=== PATIENT | female | born 1935 | race Caucasian/White ===

== ENCOUNTER → 2016-11-26 | Outpatient (CLI) | payer OTHER ==
[~2016-11-26] MED LIST: ACET-1311 PO; ACYC-251 PO; ACYC1CAP8 PO; AMIO0.1T PO; AMIO200T4 PO; CEFU250T15 PO; CHOL1000 PO; CHOL100027 PO; CINA0.42 PO; CLOP1TAB15 PO; CPR500 PO; CRD200 PO; Citracal PO; DIPH-416 PO; DXM/4 PO; ESTCR VAGRING; FERR1TAB23 PO; FERR325T18 PO; FLUO0.0543; FRRS300 PO; GLUC500C4 PO; GLUC500T35 PO; IMD/2 PO; LEVO75TA PO; LORA-741 PO; MAGN400T6 PO; METHPOW7; METO-217 PO; MRLP17X PO; MULTCHW4 PO; NITR1OIN; ONDA4TAB46 PO; PANT40TA PO; POTA20TA16 PO; PRAV20TA PO; PRED-301 PO; PRT40 PO; Prednisone PO; SUCR1TAB PO; TRIM100T20 PO; VERA240C2 PO; XLD/500 PO; ZOLE1INJ IV; ZVR400 PO
--- NOTE | 2016-11-26 13:52 | DIAGNOSTIC IMAGING REPORT ---
ABDOMEN AND PELVIS CT WITH IV AND ORAL CONTRAST CT DOSE: 666.49 mGycm HISTORY: Mild change K52.9 Chronic asscptmsL54.5 TECHNIQUE: Multiaxial CT images of the abdomen and pelvis were performed following the use of intravenous and oral contrast. COMPARISON STUDY: 11/03/2015. 05/21/2014. FINDINGS: Platelike atelectasis lung bases. Lung bases otherwise are clear. Mild fatty replacement of the liver. The gallbladder is negative for distention. Kidneys enhance uniformly. Several microcysts are present. No evidence for hydronephrosis. Inferior vena caval filter present at the juncture of the inferior vena cava and right iliac vein. Bowel pattern overall is nonobstructive. Several fluid-filled loops of small bowel within the right central pelvic region. Mild increase in fecal load within the colon. There are no obstructive characteristics. Operative changes within the pelvis consistent with a prior bladder suspension type procedure. Sigmoid colon demonstrates a component of chronic sigmoid diverticulosis. No evidence for diverticulitis. Normal appendix. Bladder is midline with no contained calcifications. Moderate degenerative change of the osseous structures. IMPRESSION: 1. Mild fatty infiltration of liver. 2. Small bowel appearance suggesting a mild enteritis. 3. Mild chronic sigmoid diverticulosis. 4. No evidence for acute diverticulitis. 5. Mild increase in fecal load within the ascending and transverse colon consistent with a component of fecal stasis. Electronically signed by: Miguel Luciano M.D. 11/26/2016 1:50 PM
== END | disposition home or self-care (01) ==
LOC: C.CTS 11:00
PROVIDERS: ATTEND Internal Medicine
DX: K62.5 Hemorrhage of anus and rectum (principal); K52.9 Noninfective gastroenteritis and colitis, unspecified

== ENCOUNTER → 2016-12-04 | Outpatient (CLI) | payer OTHER ==
[~2016-12-04] MED LIST changes: -ACET-1311 PO; -CEFU250T15 PO; -FERR325T18 PO; -METHPOW7; -MRLP17X PO; -ONDA4TAB46 PO
[2016-12-04 17:29] LABS: BLOOD UREA NITROGEN 19 mg/dl (7-18); BUN/CREATININE RATIO 24.5 (10-20); CALCIUM 9.2 mg/dl (8.5-10.1); CARBON DIOXIDE 24 mmol/L (21-32); CHLORIDE 104 mmol/L (98-107); CREATININE 0.76 mg/dl (0.60-1.20); GLUCOSE 100 mg/dl (70-99); POTASSIUM 3.8 mmol/L (3.5-5.1); SODIUM 139 mmol/L (136-145)
[2016-12-04 17:44] LABS: ALB/GLOB RATIO 1.5 (0.9-2); ALKALINE PHOSPHATASE 38 U/L (45-117); ALT/SGPT 16 U/L (12-78); AST/SGOT 11 U/L (15-37); IMMUNOGLOBULN A 35.8 mg/dL (70-400); IMMUNOGLOBULN M 29.6 mg/dL (40-230)
[2016-12-04 21:15] LABS: BASO % 0.2 %; BASO ABS # 0.02 K/uL (0-0.2); COMPLETE YES; EOS % 0.7 %; HEMATOCRIT 37.6 % (37-47); IG% 0.7 %; LYMPH % 12.1 %; LYMPH ABS # 1.24 K/uL (1.2-3.4); MEAN CORPUSCULAR HEMOGLOBIN 30.8 pg (25-34); MEAN CORPUSCULAR HGB CONC 33.8 g/dl (32-36); MEAN PLATELET VOLUME 11.6 fL (7.4-10.4); NEUT % 82.3 %; PLATELET COUNT 295 K/uL (130-400); RED BLOOD COUNT 4.13 M/uL (4.2-5.4); WHITE BLOOD COUNT 10.21 K/uL (4.8-10.8)
[2016-12-07 11:19] LABS: FREE KAPPA 13.8 MG/L (3.3-19.4); FREE KAPPA/LAMBDA RATIO 1.52 (0.26-1.65); FREE LAMBDA 9.1 MG/L (5.7-26.3)
== END | disposition home or self-care (01) ==
LOC: C.LABBFT 12:53
PROVIDERS: ATTEND Internal Medicine Hematology & Oncology
DX: C90.00 Multiple myeloma not having achieved remission (principal)

== ENCOUNTER 2016-12-08 07:24 | Inpatient (IN) | payer OTHER ==
[2016-12-08] VITALS (7 sets, daily range): BP systolic 106–128; BP diastolic 51–73; PULSE 83–122; TEMP 36.7–37.4; O2SAT 97–100; Ht 162.6 cm; Wt 60.7 kg
[~2016-12-08] VITALS: Ht 162.6 cm; Wt 60.7 kg
[~2016-12-08 07:24] MED LIST changes: -ACYC1CAP8 PO; -AMIO0.1T PO; -AMIO200T4 PO; -CHOL1000 PO; -CPR500 PO; -CRD200 PO; -FERR1TAB23 PO; -FRRS300 PO; -GLUC500C4 PO; -GLUC500T35 PO; -NITR1OIN; -PRED-301 PO; -PRT40 PO; -SUCR1TAB PO; -XLD/500 PO; -ZOLE1INJ IV; -ZVR400 PO
[2016-12-08] MEDS ORDERED: NITR1OIN (07:47)
[2016-12-08] MEDS ORDERED: PANT40TA PO (07:47)
[2016-12-08] MEDS ORDERED: PRED-301 PO (07:47)
--- NOTE | 2016-12-08 07:49 | DIAGNOSTIC IMAGING REPORT ---
CHEST ONE VIEW PORTABLE CLINICAL HISTORY: Atypical chest pain vomiting COMPARISON STUDY: 12/04/2014 FINDINGS: There are postsurgical changes of a midline sternotomy. There is no failure. There is no focal pulmonary consolidation. There are no pleural effusions. There is minor basilar interstitial thickening. This is felt to be chronic.[ IMPRESSION: No active disease in the chest. Electronically signed by: Nehemiah Mccormack M.D. 12/08/2016 7:47 AM Dictated Date/Time: 12/08/2016 7:46 AM
[2016-12-08] MEDS ORDERED: SODIUM CHLORIDE 0.9% 1000ML 1,000 ML IV STA (07:51)
[2016-12-08] MEDS ORDERED: OCTREOTIDE IV BOLUS & DRIP IV STA (07:51)
[2016-12-08] MEDS ORDERED: ONDANSETRON INJ 2 MG/ML 2 ML VIAL IV STA (07:53)
[2016-12-08] MEDS ORDERED: OCTREOTIDE ACETATE INJ 100 MCG in SYRINGE 9 ML IV SCH (08:00)
[2016-12-08] MEDS ORDERED: PANTOprazole INJ 80 MG in DEXTROSE 5% 100ML IV SCH (08:00)
[2016-12-08] MEDS ORDERED: OCTREOTIDE ACETATE INJ 500 MCG in NSS 100ML IV SCH ×2 (08:00→18:30)
--- NOTE | 2016-12-08 08:13 | EMERGENCY ROOM VISIT NOTE ---
History Report prepared by Ambrosio: Joe Navarro Under the Supervision of: Dr. Doyle Lopez M.D. First contact with patient: 07:29 Chief Complaint: GI ASSESSMENT Stated Complaint: VOMITING Nursing Triage Summary: pt presents to room A09 via ALS from home. Pt has hx of gi bleeds and was to see a gi dr from [facility] today at 1000. pt reports she develped lower abd pain last night and nausea and this morning threw up dark red blood. pt is on plavix. History of Present Illness The patient is a 81 year old female who presents to the Emergency Room via ALS with complaints of blood in vomit occurring this morning. Around 6 pm last night , she had a sudden onset of weakness. This morning, she had a vomiting episode which contained a large amount of dark blood. She also complains of nausea and abdominal pain. She has been having diarrhea since July. She has a history of bleeding ulcer occurring 2 years ago. She is on Plavix. The patient denies chest pain, shortness of breath, or any other complaints. Source of History: patient Onset: this morning Position: other (global) Quality: other (blood in vomit) Associated Symptoms: + abdominal pain, + nausea, + weakness, No SOB, No chest pain Review of Systems See HPI for pertinent positives & negatives. A total of 10 systems reviewed and were otherwise negative. Past Medical & Surgical Medical Problems: (1) Anemia (2) Coronary artery disease (3) Hematemesis, weakness (4) History of hypertension (5) Hyperparathyroidism (6) Hypertension (7) Hypothyroid (8) Multiple myeloma Surgical Problems: (1) S/P CABG (coronary artery bypass graft) (2) S/P hysterectomy Family History Diabetes Hypertension Social History Smoking Status: Never Smoker Alcohol Use: none Drug Use: none Marital Status: Housing Status: lives with significant other Occupation Status: retired Current/Historical Medications Scheduled Cholecalciferol (Vitamin D 1000 Unit), 1,000 INTER.UNIT PO DAILY Cinacalcet (Sensipar), 30 MG PO DAILY Clopidogrel (Plavix), 75 MG PO DAILY Diphenoxylate/Atropine (Lomotil), 1 TAB PO prn Levothyroxine Sodium (Synthroid), 75 MCG PO DAILY Metoprolol Succinate (Toprol Xl), 25 MG PO DAILY Pantoprazole (Protonix), 40 MG PO DAILY Potassium Ext Rel (Klor-Con), 20 MEQ PO DAILY Pravastatin (Pravachol ), 20 MG PO MWF Prednisone (Prednisone), 5 MG PO DAILY Verapamil Hcl (Verapamil Hcl Er), 240 MG PO HS Miscellaneous Medications Nitroglycerin (Intra-Anal) (Rectiv) Allergies Coded Allergies: Aspartame (Verified Allergy, Mild, 12/08/16) Shellfish (Verified Allergy, Mild, 12/08/16) Ciprofloxacin (Verified Allergy, Unknown, ., 12/08/16) Iodinated Diagnostic Agents (Verified Allergy, Unknown, Unknown, 12/08/16) Nitrofurantoin (Verified Allergy, Unknown, Unknown, 12/08/16) Quinolones (Verified Allergy, Unknown, CIPRO, 12/08/16) Sulfa Antibiotics (Verified Allergy, Unknown, Unknown, 12/08/16) Physical Exam Vital Signs Date Time Temp Pulse Resp B/P Pulse Ox O2 Delivery O2 Flow Rate FiO2 12/08/16 11:50 69 14 122/56 100 Mechanical Ventilator 40 12/08/16 11:40 68 14 121/50 100 Mechanical Ventilator 40 12/08/16 11:30 67 14 131/51 100 Mechanical Ventilator 40 12/08/16 11:20 77 14 121/53 100 Mechanical Ventilator 40 12/08/16 11:10 68 14 128/53 100 Mechanical Ventilator 40 12/08/16 11:00 68 14 112/51 100 Mechanical Ventilator 40 12/08/16 10:50 40 12/08/16 10:50 73 14 119/53 100 Mechanical Ventilator 40 12/08/16 10:40 36.4 67 14 173/80 100 Mechanical Ventilator 40 12/08/16 09:25 105 201/118 100 Mechanical Ventilator 12/08/16 09:19 110 217/104 100 Mechanical Ventilator 12/08/16 09:16 40 12/08/16 09:03 100 12/08/16 08:53 95 12/08/16 08:51 94 16 113/69 94 Room Air 12/08/16 08:36 55 12/08/16 08:24 70 18 112/54 100 Room Air 12/08/16 07:41 77 20 100/53 97 Room Air 12/08/16 07:29 37.0 78 20 114/57 97 Room Air 12/08/16 07:29 100 Room Air Physical Exam GENERAL: Patient is vomiting large amounts of blood. HEAD: Normocephalic atraumatic EYES: Ocular movements intact pupils equal and react to light OROPHARYNX mucous membranes are moist no exudates present no erythema or edema present NECK: Supple no nuchal rigidity CHEST: Good equal expansion LUNGS: Clear and equal to auscultation CARDIAC: Normal S1 and S2 ABDOMEN: Soft nontender no guarding BACK: No CVA tenderness EXTREMITIES: No pain upon palpation normal muscle strength in all groups no clubbing cyanosis or edema NEURO: Patient is following commands is answering questions appropriately. Alert and oriented x3 Cranial Nerves 2-12 grossly intact Medical Decision & Procedures ER Provider Diagnostic Interpretation: X-ray results as stated below per my interpretation and radiologist interpretation. CT results as stated below per my review and radiologist interpretation: CT SCAN OF THE ABDOMEN AND PELVIS WITHOUT CONTRAST CLINICAL HISTORY: Hematemesis. Vomiting. COMPARISON STUDY: 11/26/2016 TECHNIQUE: CT scan of the abdomen and pelvis was performed from the lung bases to the proximal femurs. Images are reviewed in the axial, sagittal, and coronal planes. IV contrast was not administered for this examination. CT DOSE: 687.72 mGycm FINDINGS: Lower chest: There are postsurgical changes of midline sternotomy. No pleural effusions are visualized. There is no focal pulmonary consolidation. Liver: The unenhanced liver is normal in size, contour, and attenuation. There is no intrahepatic biliary ductal dilatation. Gallbladder: Unremarkable. Spleen: Normal in size and attenuation. Pancreas: Unremarkable. Adrenal glands: Unremarkable. Kidneys: There is no hydronephrosis. There is a 2 mm left renal calcification. Bowel: There is mild fecal retention. There are no transition zones indicate bowel obstruction. There is colonic diverticulosis. No acute peridiverticular inflammatory changes are visualized. There is mild bowel wall thickening involving the descending colon. This may indicate a mild enteritis. There is a hiatal hernia. There is nonspecific soft tissue fullness at the esophagogastric junction. Peritoneum: There is no intraperitoneal free air or abdominal ascites. Vasculature: There is no evidence of abdominal aortic aneurysm. An IVC filter is visualized. Adenopathy: None. Pelvic viscera: There is a pessary. The patient appears be status post a prior hysterectomy. Skeletal structures: There is an area of sclerosis in the intertrochanteric right femur, likely representing a bone island. The bones are osteopenic. There is an old T12 wedge compression deformity. IMPRESSION: 1. No evidence of bowel obstruction. No evidence of free air 2. Diverticulosis. No evidence of acute diverticulitis 3. Mild bowel wall thickening involving the descending colon. This may indicate a mild enteritis. 4. Hiatal hernia with soft tissue prominence of the esophagogastric junction 5. Fecal retention Electronically signed by: Nehemiah Mccormack M.D. 12/08/2016 8:27 AM Dictated Date/Time: 12/08/2016 8:18 AM CHEST ONE VIEW PORTABLE CLINICAL HISTORY: Atypical chest pain vomiting COMPARISON STUDY: 12/04/2014 FINDINGS: There are postsurgical changes of a midline sternotomy. There is no failure. There is no focal pulmonary consolidation. There are no pleural effusions. There is minor basilar interstitial thickening. This is felt to be chronic.[ IMPRESSION: No active disease in the chest. Electronically signed by: Nehemiah Mccormack M.D. 12/08/2016 7:47 AM Dictated Date/Time: 12/08/2016 7:46 AM Laboratory Results 12/08/16 08:50 Red Blood Count 2.70, Mean Corpuscular Volume 93.7, Mean Corpuscular Hemoglobin 31.1, Mean Corpuscular Hemoglobin Concent 33.2, Mean Platelet Volume 10.8, Neutrophils (%) (Auto) 80.6, Lymphocytes (%) (Auto) 10.4, Monocytes (%) (Auto) 7.5, Eosinophils (%) (Auto) 0.3, Basophils (%) (Auto) 0.2, Neutrophils # (Auto) 14.04, Lymphocytes # (Auto) 1.81, Monocytes # (Auto) 1.30, Eosinophils # (Auto) 0.05, Basophils # (Auto) 0.04 12/08/16 08:00 Test 12/08/16 08:00 12/08/16 08:50 12/08/16 08:54 Prothrombin Time 11.4 SECONDS (9.0-12.0) Prothromb Time International Ratio 1.1 (0.9-1.1) Activated Partial Thromboplast Time 20.8 SECONDS (21.0-31.0) Partial Thromboplastin Ratio 0.8 Est Creatinine Clear Calc Drug Dose 50.4 ml/min Estimated GFR () 92.9 Estimated GFR (Non- 80.1 BUN/Creatinine Ratio 93.3 (10-20) Calcium Level 8.4 mg/dl (8.5-10.1) Total Bilirubin 0.2 mg/dl (0.2-1) Direct Bilirubin < 0.1 mg/dl (0-0.2) Aspartate Amino Transf (AST/SGOT) 9 U/L (15-37) Alanine Aminotransferase (ALT/SGPT) 13 U/L (12-78) Alkaline Phosphatase 29 U/L (45-117) Total Creatine Kinase 18 U/L (26-192) Creatine Kinase MB 1.0 ng/ml (0.5-3.6) Creatine Kinase MB Ratio 5.6 (0-3.0) Troponin I < 0.015 ng/ml (0-0.045) Total Protein 5.1 gm/dl (6.4-8.2) Albumin 2.9 gm/dl (3.4-5.0) Lipase 90 U/L (73-393) White Blood Count 17.41 K/uL (4.8-10.8) Red Blood Count 2.70 M/uL (4.2-5.4) Hemoglobin 8.4 g/dL (12.0-16.0) Hematocrit 25.3 % (37-47) Mean Corpuscular Volume 93.7 fL (80-100) Mean Corpuscular Hemoglobin 31.1 pg (25-34) Mean Corpuscular Hemoglobin Concent 33.2 g/dl (32-36) Platelet Count 239 K/uL (130-400) Mean Platelet Volume 10.8 fL (7.4-10.4) Neutrophils (%) (Auto) 80.6 % Lymphocytes (%) (Auto) 10.4 % Monocytes (%) (Auto) 7.5 % Eosinophils (%) (Auto) 0.3 % Basophils (%) (Auto) 0.2 % Neutrophils # (Auto) 14.04 K/uL (1.4-6.5) Lymphocytes # (Auto) 1.81 K/uL (1.2-3.4) Monocytes # (Auto) 1.30 K/uL (0.11-0.59) Eosinophils # (Auto) 0.05 K/uL (0-0.5) Basophils # (Auto) 0.04 K/uL (0-0.2) RDW Standard Deviation 49.6 fL (36.4-46.3) RDW Coefficient of Variation 14.4 % (11.5-14.5) Immature Granulocyte % (Auto) 1.0 % Immature Granulocyte # (Auto) 0.17 K/uL (0.00-0.02) Hypochromasia PRESENT Bedside Hemoglobin 8.2 g/dl (12.0-16.0) Bedside Hematocrit 24 % (37-47) Bedside Sodium 141 mEq/L (135-144) Bedside Potassium 4.0 mEq/L (3.3-5.0) Bedside Chloride 107 mEq/L (101-112) Bedside Total CO2 18 mEq/l (24-31) Anion Gap 20.0 mmol/L (16-25) Bedside Blood Urea Nitrogen 67 mg/dl (7-18) Bedside Creatinine 0.6 mg/dl (0.6-1.3) Bedside Glucose (other) 128 mg/dl (70-99) Bedside Ionized Calcium (Patrizia) 1.15 mmol/l (1.12-1.32) Labs reviewed by ED physician. Medications Administered Medications (Trade) Dose Ordered Sig/Timo Route Start Time Stop Time Status Last Admin Dose Admin Octreotide Acetate (Sandostatin Iv Bolus & Drip) 1 ea NOW STAT IV 12/08/16 07:51 12/08/16 07:52 DC 12/08/16 08:27 1 EA Pantoprazole Sodium 1 ea 1 ea NOW STAT IV 12/08/16 07:51 12/08/16 07:52 DC 12/08/16 08:27 1 EA Sodium Chloride (Nss 1000ml) 1,000 ml @ 999 mls/hr Q1H1M STAT IV 12/08/16 07:51 12/08/16 08:51 DC 12/08/16 08:02 999 MLS/HR Ondansetron HCl 4 mg 4 mg NOW STAT IV 12/08/16 07:53 12/08/16 07:54 DC 12/08/16 08:02 4 MG Octreotide Acetate 100 mcg/ Syringe 10 ml @ 3 mls/min TODAY@0800 IV 12/08/16 08:00 12/08/16 10:00 DC 12/08/16 08:27 3 MLS/MIN Octreotide Acetate 500 mcg/ Sodium Chloride 105 ml @ 10 mls/hr [id number] IV 12/08/16 08:00 12/08/16 18:29 12/08/16 08:27 10 MLS/HR Pantoprazole Sodium 40 mg/ Dextrose 100 ml @ 20 mls/hr Q5H IV 12/08/16 08:30 12/08/16 13:29 DC 12/08/16 08:27 20 MLS/HR Pantoprazole Sodium/Dextrose (Protonix Inj/D5 100ml) 120 ml @ 480 mls/hr TODAY@0800 IV 12/08/16 08:00 12/08/16 10:00 DC 12/08/16 08:27 480 MLS/HR Ceftriaxone Sodium (Rocephin Inj) 1 gm NOW STAT IV 12/08/16 08:34 12/08/16 08:35 DC 12/08/16 08:54 1 GM Metoclopramide HCl (Reglan Inj) 10 mg NOW STAT IV 12/08/16 08:38 12/08/16 08:39 DC 12/08/16 08:50 10 MG Miscellaneous (Rapid Sequence Induction Bag) 1 ea STK-MED ONCE N/A 12/08/16 08:41 12/08/16 08:43 DC 12/08/16 08:41 1 EA Etomidate (Amidate Inj) 20 mg 0848 STAT IV 12/08/16 08:48 12/08/16 08:50 DC 12/08/16 08:48 20 MG Succinylcholine Chloride (Quelicin Inj) 150 mg NOW STAT IV 12/08/16 08:48 12/08/16 08:50 DC 12/08/16 08:48 150 MG Vecuronium Intervale (Vecuronium Intervale Inj) 10 mg NOW STAT IV 12/08/16 08:48 12/08/16 08:50 DC 12/08/16 08:48 10 MG Propofol (Diprivan IV 100ML VIAL) 1 dose UD PRN IV 12/08/16 09:00 12/08/16 13:37 DC 12/08/16 09:22 1 DOSE Epinephrine HCl 1 mg 1 mg STK-MED ONCE .ROUTE 12/08/16 10:36 12/08/16 10:38 DC 12/08/16 10:07 0.4 MG Sodium Chloride (Nss 1000ml) 1,000 ml @ 45 mls/hr [id number] IV 12/08/16 11:33 01/07/17 11:32 12/08/16 15:03 45 MLS/HR Morphine Sulfate (MoRPHine SULFATE INJ) 2 mg Q2H PRN IV 12/08/16 11:45 12/22/16 11:44 12/08/16 15:03 2 MG Procedure Endotracheal Intubation Indication Hematemesis. The patient was on 100% oxygen via NRB prior to the procedure. Suction, airway equipment, RSI drugs, respiratory equipment, and appropriate personnel were prepared prior to the initiation of the procedure. A time out was taken. Induction was performed with Etomidate and Succinylcholine. After observing the clinical benefit of the medications, the airway was easily visualized utilizing a GlideScope. A 7.5 size ETT tube was placed atraumatically to 22 cm using standard technique. The cuff inflated without signs of malfunction. There were bilateral breath sounds, positive colormetric change, no gastric sounds, a good capnography waveform, and post procedure pulse oximetry was 100%. There were no complications. ECG Indication: other (Blood in vomit) Rate (beats per minute): 79 Rhythm: normal sinus Findings: no acute ischemic change, no ectopy ED Course 07: Past medical records reviewed. The patient was evaluated in room A09B. A complete history and physical examination was performed. 0751: Sodium Chloride 1000 ml @ 999 mls/hr IV, Pantoprazole Sodium 1 ea IV, Octreotide Acetate 1 ea IV 0753: Zofran Inj 4 mg IV 0800: Pantoprazole Sodium 80 mg/Dextrose 120 ml @ 480 mls/hr IV, Octreotide Acetate 500 mcg/Sodium Chloride 105 ml @ 10 mls/hr IV, Octreotide Acetate 100 mcg/Syringe 10 ml @ 3 mls/min IV 0819: I discussed the patient's case with OSCAR Simpson gastroenterology with [facility]. 0830: Pantoprazole Sodium 40 mg/Dextrose 100 ml @ 20 mls/hr IV 0834: Rocephin Inj 1 gm IV 0835: I reevaluated the patient who is resting comfortably. 0838: Reglan Inj 10 mg IV 0839: I discussed the patient's case again with OSCAR Simpson gastroenterology with [facility]. 0841: I discussed results and treatment plan with the patient. She verbalizes agreement and understanding. The patient will be evaluated for further management. I performed endotracheal intubation. Refer to procedure note for details. 0848: Vecuronium Intervale Inj 10 mg IV, Quelicin Inj 150 mg IV, Amidate Inj 20 mg IV 0900: Propofol 1 dose IV 0910: I discussed the patient's case with her family. 927: I discussed the patient's case with Dr. Maier high school principal with [facility]. 932: I discussed the patient's case with Dr. Palma anesthesiologist with [facility]. 40: I discussed the patient's case with Dr. Irwin, from [facility]. Medical Decision Differential diagnosis: Etiologies such as diverticulosis, AVM, coagulopathy, colitis, inflammatory bowel disease, malignancy, Lakesha-Saez tear, esophagitis, peptic ulcer disease , variceal bleed, gastritis, epistaxis, fissure, hemorrhoids, as well as others were entertained. This is an 81-year-old female who presents emergency department with an acute episode of a large amount of hematemesis at home today. Upon arrival to the emergency department the patient reports she has been feeling weak for the past day. Her hemoglobin is noted to have dropped from 12 to 8. The patient is also on Plavix. Due to the fact that the patient was on Plavix she was typed and screened and given 1 unit of platelets. The patient again had a large amount of hematemesis in the emergency department and at this point it was felt that the patient should be intubated to protect her airway. I discussed this with both patient as well as her family. All were in agreement with this treatment . The patient was discussed with gastroenterology as well as critical-care and the hospitalist service. Consults Time Called: 806 Consulting Physician: OSCAR Simpson gastroenterology with [facility] Returned Call: [phone] I discussed the patient's case with OSCAR Simpson gastroenterology with [facility]. Additional Consults: Time Called: [phone] Consulted Physician: Dr. Maier high school principal with [facility] Returned Call: [phone] Additional Comments: I discussed the patient's case with Dr. Maier high school principal with [facility]. Time Called: 929 Consulted Physician: Dr. Palma, anesthesiologist with [facility] Returned Call: [phone] Additional Comments: I discussed the patient's case with Dr. Palma, anesthesiologist with [facility]. Impression Primary Impression: Upper GI bleed Critical Care I have personally spent greater than 90 minutes of critical care time in the direct management of this patient. This includes bedside care, interpretation of diagnostic studies, and testing, discussion with consultants, patient, and family members, and other required patient management activities. This 90 minutes is in excess of all separately billable procedures. Scribe Attestation The scribe's documentation has been prepared under my direction and personally reviewed by me in its entirety. I confirm that the note above accurately reflects all work, treatment, procedures, and medical decision making performed by me. Departure Information Dispostion Being Evaluated By Hospitalist Referrals Hussain Woody M.D. (PCP) Patient Instructions My [facility]
[2016-12-08 08:14] LABS: HEMATOCRIT 26.6 % (37-47); MEAN CELL VOLUME 92.4 fL (80-100); MEAN CORPUSCULAR HEMOGLOBIN 31.3 pg (25-34); MEAN CORPUSCULAR HGB CONC 33.8 g/dl (32-36); PLATELET COUNT 295 K/uL (130-400); RED BLOOD COUNT 2.88 M/uL (4.2-5.4); WHITE BLOOD COUNT 21.14 K/uL (4.8-10.8)
[2016-12-08 08:27] LABS: INR 1.1 (0.9-1.1); PARTIAL THROMBOPLASTIN RATIO 0.8; PROTHROMBIN TIME (PATIENT) 11.4 SECONDS (9.0-12.0)
--- NOTE | 2016-12-08 08:28 | DIAGNOSTIC IMAGING REPORT ---
CT SCAN OF THE ABDOMEN AND PELVIS WITHOUT CONTRAST CLINICAL HISTORY: Hematemesis. Vomiting. COMPARISON STUDY: 11/26/2016 TECHNIQUE: CT scan of the abdomen and pelvis was performed from the lung bases to the proximal femurs. Images are reviewed in the axial, sagittal, and coronal planes. IV contrast was not administered for this examination. CT DOSE: 687.72 mGycm FINDINGS: Lower chest: There are postsurgical changes of midline sternotomy. No pleural effusions are visualized. There is no focal pulmonary consolidation. Liver: The unenhanced liver is normal in size, contour, and attenuation. There is no intrahepatic biliary ductal dilatation. Gallbladder: Unremarkable. Spleen: Normal in size and attenuation. Pancreas: Unremarkable. Adrenal glands: Unremarkable. Kidneys: There is no hydronephrosis. There is a 2 mm left renal calcification. Bowel: There is mild fecal retention. There are no transition zones indicate bowel obstruction. There is colonic diverticulosis. No acute peridiverticular inflammatory changes are visualized. There is mild bowel wall thickening involving the descending colon. This may indicate a mild enteritis. There is a hiatal hernia. There is nonspecific soft tissue fullness at the esophagogastric junction. Peritoneum: There is no intraperitoneal free air or abdominal ascites. Vasculature: There is no evidence of abdominal aortic aneurysm. An IVC filter is visualized. Adenopathy: None. Pelvic viscera: There is a pessary. The patient appears be status post a prior hysterectomy. Skeletal structures: There is an area of sclerosis in the intertrochanteric right femur, likely representing a bone island. The bones are osteopenic. There is an old T12 wedge compression deformity. IMPRESSION: 1. No evidence of bowel obstruction. No evidence of free air 2. Diverticulosis. No evidence of acute diverticulitis 3. Mild bowel wall thickening involving the descending colon. This may indicate a mild enteritis. 4. Hiatal hernia with soft tissue prominence of the esophagogastric junction 5. Fecal retention Electronically signed by: Nehemiah Mccormack M.D. 12/08/2016 8:27 AM Dictated Date/Time: 12/08/2016 8:18 AM
[2016-12-08] MEDS ORDERED: PANTOprazole INJ 40 MG in DEXTROSE 5% 100ML IV SCH (08:30)
[2016-12-08 08:33] LABS: ALT/SGPT 13 U/L (12-78); BLOOD UREA NITROGEN 65 mg/dl (7-18); BUN/CREATININE RATIO 93.3 (10-20); CALCIUM 8.4 mg/dl (8.5-10.1); CARBON DIOXIDE 19 mmol/L (21-32); CHLORIDE 110 mmol/L (98-107); GLUCOSE 121 mg/dl (70-99); POTASSIUM 4.2 mmol/L (3.5-5.1); SODIUM 142 mmol/L (136-145)
[2016-12-08] MEDS ORDERED: CEFTRIAXONE SOD INJ 1 GM ADDVIAL IV STA (08:34)
[2016-12-08 08:35] LABS: ISTAT CREATININE 0.7 mg/dl (0.6-1.3); ISTAT HEMOGLOBIN 8.5 g/dl (12.0-16.0); ISTAT IONIZED CALCIUM 1.18 mmol/l (1.12-1.32)
[2016-12-08 08:38] LABS: ALKALINE PHOSPHATASE 29 U/L (45-117); AST/SGOT 9 U/L (15-37); CKMB/CK RATIO 5.6 (0-3.0)
[2016-12-08] MEDS ORDERED: METOCLOPRAMIDE HCL INJ 5 MG/ML 2 ML VIAL IV STA ×2 (08:38→08:53)
[2016-12-08] MEDS ORDERED: RAPID SEQUENCE INDUCTION BAG ONE (08:41)
[2016-12-08] MEDS ORDERED: VECURONIUM BROMIDE 10 MG VIAL IV STA (08:48)
[2016-12-08] MEDS ORDERED: SUCCINYLCHOLINE CHLORIDE 20 MG/ML 10 ML VIAL IV STA (08:48)
[2016-12-08] MEDS ORDERED: ETOMIDATE 2 MG/ML 20 ML VIAL IV STA (08:48)
[2016-12-08 08:50] LABS: BASO % 0.2 %; BASO ABS # 0.05 K/uL (0-0.2); COMPLETE YES; EOS % 0.5 %; IG% 0.8 %; LYMPH ABS # 3.18 K/uL (1.2-3.4); MONO % 7.9 %; NEUT % 75.6 %
[2016-12-08] MEDS ORDERED: PROPOFOL IV EMULSION 10 MG/ML 100 ML VIAL IV PRN (09:00)
[2016-12-08 09:03] LABS: BASO % 0.2 %; BASO ABS # 0.04 K/uL (0-0.2); EOS % 0.3 %; HEMATOCRIT 25.3 % (37-47); LYMPH % 10.4 %; LYMPH ABS # 1.81 K/uL (1.2-3.4); MEAN CELL VOLUME 93.7 fL (80-100); MEAN CORPUSCULAR HEMOGLOBIN 31.1 pg (25-34); MEAN CORPUSCULAR HGB CONC 33.2 g/dl (32-36); MEAN PLATELET VOLUME 10.8 fL (7.4-10.4); MONO % 7.5 %; NEUT % 80.6 %; PLATELET COUNT 239 K/uL (130-400); WHITE BLOOD COUNT 17.41 K/uL (4.8-10.8)
[2016-12-08 09:11] LABS: ISTAT CREATININE 0.6 mg/dl (0.6-1.3); ISTAT HEMOGLOBIN 8.2 g/dl (12.0-16.0); ISTAT IONIZED CALCIUM 1.15 mmol/l (1.12-1.32)
--- NOTE | 2016-12-08 09:24 | Gastrointestinal Consultation ---
Gastrointestinal Consultation Date of Consultation: Dec 08, 2016 Attending Physician: Dr. Lopez Consulting Physician: Dr. Maier/OSCAR Simpson Reason for Consultation: Hematemesis History of Present Illness Patient is a 81 year old female with a history of multiple myeloma and blood clots as well as PUD presenting to the ER via EMS with reports of progressive weakness and hematemesis of dark, tarry material prior to arrival. She has been following with Dr. Maier as an outpatient for chronic diarrhea and bright red blood per rectum as well as external hemorrhoids. The patient did have a CBC several days ago and was noted to have a hemoglobin of 12.7 and she was noted to have an H&H of 9.0 and 26.6. She has also been noted to have another episode of hematemesis which is bright red since arrival. An octreotide and Protonix drip have been initiated and she is in process of being intubated for airway protection by the ER physician. Patient's history was notable for multiple gastric ulcers diagnosed in November of 2014 while on anticoagulation therapy. She did have a follow up scope which demonstrated ulcer healing. She is currently on Plavix. Past Medical/Surgical History Past Medical History: 1. Blood clots 2. CAD 3. Multiple myeloma 4. HTN 5. Rectal bleeding 6. Chronic diarrhea Past Surgical History: 1. CABG 2. Hysterectomy 3. EGD Family History Diabetes Hypertension Negative for GI malignancy or IBD Social History Smoking Status: Never Smoker Alcohol Use: none Drug Use: none Housing Status: lives with significant other Occupation Status: retired Allergies Coded Allergies: Aspartame (Verified Allergy, Mild, 12/08/16) Shellfish (Verified Allergy, Mild, 12/08/16) Ciprofloxacin (Verified Allergy, Unknown, ., 12/08/16) Iodinated Diagnostic Agents (Verified Allergy, Unknown, Unknown, 12/08/16) Nitrofurantoin (Verified Allergy, Unknown, Unknown, 12/08/16) Quinolones (Verified Allergy, Unknown, CIPRO, 12/08/16) Sulfa Antibiotics (Verified Allergy, Unknown, Unknown, 12/08/16) Current Medications Home Meds and Scripts Medications Dose Route/Sig Max Daily Dose Days Date Category Dose Instructions Rectiv (Nitroglycerin (Intra-Anal)) 0.4 % Oin 12/08/16 Reported Prednisone 5 Mg Tab 5 Mg PO DAILY 12/08/16 Reported Protonix (Pantoprazole Sodium) 40 Mg Tab 40 Mg PO DAILY 12/08/16 Reported Lomotil (Diphenoxylate HCl/Atropine) Tab 1 Tab PO PRN 11/29/15 Reported Plavix (Clopidogrel Bisulfate) 75 Mg Tab 75 Mg PO DAILY 03/21/15 Reported Klor-Con (Potassium Chloride) 20 Meq Tabcr 20 Meq PO DAILY 07/20/14 Reported Sensipar (Cinacalcet) 30 Mg Tab 30 Mg PO DAILY 04/30/14 Reported Vitamin D 1000 Unit (Cholecalciferol) 1,000 Unit Cap 1,000 Inter.unit PO DAILY 04/30/14 Reported Verapamil Hcl Er (Verapamil Hcl) 240 Mg Cap 240 Mg PO HS 04/30/14 Reported Toprol Xl (Metoprolol Succinate) 50 Mg Tabcr 25 Mg PO DAILY 04/30/14 Reported Synthroid (Levothyroxine Sodium) 75 Mcg Tab 75 Mcg PO DAILY 04/30/14 Reported Pravachol (Pravastatin Sodium) 20 Mg Tab 20 Mg PO MWF 04/30/14 Reported TAKE AT BEDTIME Review of Systems Constitutional: + see HPI Eyes: No problem reported ENT: No problem reported Respiratory: No cough, No wheezing Cardiac: No chest pain, No palpitations Abdomen: + see HPI Musculoskeletal: No problem reported Female : No problem reported Neuro: No problem reported Psych: No problem reported Physical Exam Date Time Temp Pulse Resp B/P Pulse Ox O2 Delivery O2 Flow Rate FiO2 12/08/16 09:03 100 12/08/16 08:53 95 12/08/16 08:51 94 16 113/69 94 Room Air 12/08/16 08:36 55 12/08/16 08:24 70 18 112/54 100 Room Air 12/08/16 07:41 77 20 100/53 97 Room Air 12/08/16 07:29 37.0 78 20 114/57 97 Room Air 12/08/16 07:29 100 Room Air General Appearance: no apparent distress Eyes: normal inspection, EOMI ENT: hearing grossly normal Neck: supple Respiratory/Chest: lungs clear, normal breath sounds, no respiratory distress Cardiovascular: regular rate, rhythm, no gallop, no murmur Abdomen: normal bowel sounds, non tender, soft Extremities: normal inspection Neurologic/Psych: alert, normal mood/affect, oriented x 3 Skin: warm/dry Laboratory Results Last 24 Hours Test 12/08/16 08:00 12/08/16 08:16 12/08/16 08:50 12/08/16 08:54 White Blood Count 21.14 K/uL 17.41 K/uL Red Blood Count 2.88 M/uL 2.70 M/uL Hemoglobin 9.0 g/dL 8.4 g/dL Hematocrit 26.6 % 25.3 % Mean Corpuscular Volume 92.4 fL 93.7 fL Mean Corpuscular Hemoglobin 31.3 pg 31.1 pg Mean Corpuscular Hemoglobin Concent 33.8 g/dl 33.2 g/dl Platelet Count 295 K/uL 239 K/uL Mean Platelet Volume 11.0 fL 10.8 fL Neutrophils (%) (Auto) 75.6 % 80.6 % Lymphocytes (%) (Auto) 15.0 % 10.4 % Monocytes (%) (Auto) 7.9 % 7.5 % Eosinophils (%) (Auto) 0.5 % 0.3 % Basophils (%) (Auto) 0.2 % 0.2 % Neutrophils # (Auto) 15.98 K/uL 14.04 K/uL Lymphocytes # (Auto) 3.18 K/uL 1.81 K/uL Monocytes # (Auto) 1.66 K/uL 1.30 K/uL Eosinophils # (Auto) 0.10 K/uL 0.05 K/uL Basophils # (Auto) 0.05 K/uL 0.04 K/uL RDW Standard Deviation 48.9 fL 49.6 fL RDW Coefficient of Variation 14.4 % 14.4 % Immature Granulocyte % (Auto) 0.8 % 1.0 % Immature Granulocyte # (Auto) 0.17 K/uL 0.17 K/uL Prothrombin Time 11.4 SECONDS Prothromb Time International Ratio 1.1 Activated Partial Thromboplast Time 20.8 SECONDS Partial Thromboplastin Ratio 0.8 Sodium Level 142 mmol/L Potassium Level 4.2 mmol/L Chloride Level 110 mmol/L Carbon Dioxide Level 19 mmol/L Anion Gap 13.0 mmol/L 17.0 mmol/L 20.0 mmol/L Blood Urea Nitrogen 65 mg/dl Creatinine 0.70 mg/dl Est Creatinine Clear Calc Drug Dose 50.4 ml/min Estimated GFR () 92.9 Estimated GFR (Non- 80.1 BUN/Creatinine Ratio 93.3 Random Glucose 121 mg/dl Calcium Level 8.4 mg/dl Total Bilirubin 0.2 mg/dl Direct Bilirubin < 0.1 mg/dl Aspartate Amino Transf (AST/SGOT) 9 U/L Alanine Aminotransferase (ALT/SGPT) 13 U/L Alkaline Phosphatase 29 U/L Total Creatine Kinase 18 U/L Creatine Kinase MB 1.0 ng/ml Creatine Kinase MB Ratio 5.6 Troponin I < 0.015 ng/ml Total Protein 5.1 gm/dl Albumin 2.9 gm/dl Lipase 90 U/L Bedside Hemoglobin 8.5 g/dl 8.2 g/dl Bedside Hematocrit 25 % 24 % Bedside Sodium 140 mEq/L 141 mEq/L Bedside Potassium 4.2 mEq/L 4.0 mEq/L Bedside Chloride 107 mEq/L 107 mEq/L Bedside Total CO2 21 mEq/l 18 mEq/l Bedside Blood Urea Nitrogen 66 mg/dl 67 mg/dl Bedside Creatinine 0.7 mg/dl 0.6 mg/dl Bedside Glucose (other) 121 mg/dl 128 mg/dl Bedside Ionized Calcium (Patrizia) 1.18 mmol/l 1.15 mmol/l Impression Patient is a 81 year old female with a history of multiple myeloma and PUD presenting with weakness, hematemesis, and acute blood loss anemia. Plan 1. NPO. 2. Agree with intubation for airway protection. 3. Maintain 2 large bore IVs at all times. 4. Transfuse as appropriate. 5. EGD in the OR. 6. 10 mg IV Reglan prior to procedure. 7. Continue Protonix and Octreotide drips as ordered. 8. Additional recommendations pending results of testing. Thank you for allowing us to participate in the care of this patient. If you have any questions or concerns, please do not hesitate to contact us. Agree with OSCAR Simpson as above Abd: Soft, NT, ND, +BS Started on Protonix and Octreotide drip Emergent EGD now for further evaluation
[2016-12-08 09:29] LABS: COMPLETE YES; HYPOCHROMIA PRESENT
--- NOTE | 2016-12-08 09:46 | DIAGNOSTIC IMAGING REPORT ---
CHEST ONE VIEW PORTABLE HISTORY: Pt c/o hematemesis COMPARISON: Chest 12/08/2016. FINDINGS: The endotracheal tube terminates 2.5 cm from the willem. There are poststernotomy changes. The heart is normal in size. No pleural effusions. No pneumothorax. The lungs are clear. No evidence for pulmonary edema. IMPRESSION: The endotracheal tube terminates 2.5 cm from the willem. Electronically signed by: Gustavo Pickard M.D. 12/08/2016 9:44 AM Dictated Date/Time: 12/08/2016 9:19 AM
[2016-12-08] MEDS ORDERED: PHENYLEPHRINE 100MCG/ML 5ML SYR ONE (10:05)
[2016-12-08] MEDS ORDERED: GLYCOPYRROLATE INJ 0.2 MG/ML VIAL ONE (10:31)
[2016-12-08] MEDS ORDERED: NEOSTIGMINE METHYLSULFATE 5 MG/5 ML SYR ONE (10:31)
[2016-12-08] MEDS ORDERED: LABETALOL HCL IV 5 MG/ML 20ML ONE (10:31)
--- NOTE | 2016-12-08 10:35 | GI REPORT ---
Procedure Date: 12/08/2016 9:54 AM Procedure: Upper GI endoscopy Indications: Hematemesis Medicines: Monitored Anesthesia Care Complications: No immediate complications. Estimated Blood Loss: Estimated blood loss: none. Procedure: Pre-Anesthesia Assessment: - Prior to the procedure, a History and Physical was performed, and patient medications and allergies were reviewed. The patient's tolerance of previous anesthesia was also reviewed. The risks and benefits of the procedure and the sedation options and risks were discussed with the patient. All questions were answered, and informed consent was obtained. Prior Anticoagulants: The patient has taken Plavix (clopidogrel), last dose was 1 day prior to procedure. ASA Grade Assessment: E - Emergency. After reviewing the risks and benefits, the patient was deemed in satisfactory condition to undergo the procedure. After obtaining informed consent, the endoscope was passed under direct vision. Throughout the procedure, the patient's blood pressure, pulse, and oxygen saturations were monitored continuously. The scope was introduced through the mouth, and advanced to the second part of duodenum. The upper GI endoscopy was accomplished without difficulty. The patient tolerated the procedure well. Findings: The esophagus was normal. A small hiatus hernia was present. One non-bleeding cratered gastric ulcer with a visible vessel was found in the gastric body. The lesion was 8 mm in largest dimension. Area was successfully injected with 2 mL of a 1:10,000 solution of epinephrine for hemostasis. Coagulation for hemostasis using heater probe was successful. Two 4 mm stigmata of recent bleeding angioectasias were found in the gastric fundus. Area was successfully injected with 2 mL of a 1:10,000 solution of epinephrine for hemostasis. Vaporization for hemostasis using heater probe was successful. The examined duodenum was normal. Impression: - Normal esophagus. - Small hiatus hernia. - Non-bleeding gastric ulcer with a visible vessel. Injected. Treated with a heater probe. - Two recently bleeding angioectasias in the stomach. Injected. Treated with a heater probe. - Normal examined duodenum. - No specimens collected. Recommendation: - Admit the patient to ICU for ongoing care. - Give Protonix (pantoprazole): 8 mg/hr IV by continuous infusion for 3 days. - Observe patient's clinical course following today's procedure with therapeutic intervention. Tyron Maier, DO 12/08/2016 10:34:56 AM This report has been signed electronically. Note Initiated On: 12/08/2016 9:54 AM
[2016-12-08] MEDS ORDERED: SODIUM CHLORIDE 0.9% 1000ML 1,000 ML IV SCH (11:33)
[2016-12-08] MEDS ORDERED: LORAZEPAM 2 MG/ML 1 ML VIAL IV PRN (11:45)
--- NOTE | 2016-12-08 12:04 | Critical Care Consultation ---
Critical Care Consultation Date of Consultation: Dec 08, 2016. Attending Physician: Dr. Simone Palma Reason for Consultation: S/P EGD for GI Bleed History of Present Illness Patient is an 81-year-old female with a history of CAD s/p CABG, HTN, paroxysmal afib, dyslipidemia, multiple myeloma, hypothyroidism, hyperparathyroidism, peptic ulcer disease, external hemorrhoids, chronic diarrhea, history of DVT, history of GI bleed who presented to the emergency room via EMS today for hematemesis this morning which contained a large amount of dark blood. She also complained to ED medical providers of nausea and abdominal pain. She stated that around 6 PM last evening she had a sudden feeling of weakness. She has a previous history of bleeding ulcer about 2 years ago when she was being worked up for a DVT. She was intubated in the ED for airway protection from aspiration with Etomidate 20mg, Succinylcholine 150mg, followed by Vecuronium 10mg via Rapid Sequence with a 7.5 tube without complication. She was evaluated by Dr. mauricio, who also knows her as an outpatient, she was found to have an acute drop in hemoglobin to 8.2. She was taken emergently to the OR to evaluate the source of the GI bleed as well as achieve hemostasis. She did receive transfusion of a 6 pack of platelets and crystalloids during procedure.According to Dr. mauricio's report he found a small hiatal hernia, nonbleeding gastric ulcer with a visible vessel, 2 recently bleeding angioectasias in the gastric fundus; all 3 were injected with epinephrine for hemostasis.. He recommended transfer to the ICU and Protonix drip at 8 mg per hour IV for 3 days. Octreotide drip was also initiated. Dr. Palma and I saw this patient originally in the PACU post-EGD. At which point she was still intubated, sedated and hypertensive with SBP in the 170's/ Dr. Palma verbally ordered 6mg IV Labetalol. By the time we left, her SBP was normalized in the 120's. Now seen her here in the ICU and she is alert, tired, cold, but cooperative. She is complaining being cold and of lumbar region back pain (4/10) which is new for her. She also states she is not feeling well, but can't provide any one source. She stated that her previous abd pain was alleviated with urinating prior to the EGD. She does feel like she has to go constantly now due to the presence of the rudolph. She did state she has a sore throat from the intubation. She has chronic diarrhea and doesn't quite recall her last bowel movement, but feels she could go now. She denied fever, trouble breathing, cough, chest pain/pressure, palpitations, abd pain, nausea, numbness, tingling. Past Medical/Surgical History Medical Problems: Anemia Coronary artery disease Dyslipidemia Peptic Ulcer Dz Hx of DVT with filter placement Paroxysmal A. Fib Hematemesis, weakness History of hypertension Hyperparathyroidism Hypertension Hypothyroid Multiple myeloma Surgical Problems: [place] Filter placement S/P CABG (coronary artery bypass graft) S/P hysterectomy for fibroid Bilat Cataracts Appendectomy L Broken Ankle Fixation (1950) Family History Diabetes Hypertension Social History Smoking Status: Never Smoker Drug Use: none Housing Status: lives with significant other Occupation Status: retired Allergies Coded Allergies: Aspartame (Verified Allergy, Mild, 12/08/16) Shellfish (Verified Allergy, Mild, 12/08/16) Ciprofloxacin (Verified Allergy, Unknown, ., 12/08/16) Iodinated Diagnostic Agents (Verified Allergy, Unknown, Unknown, 12/08/16) Nitrofurantoin (Verified Allergy, Unknown, Unknown, 12/08/16) Quinolones (Verified Allergy, Unknown, CIPRO, 12/08/16) Sulfa Antibiotics (Verified Allergy, Unknown, Unknown, 12/08/16) Home Medications Scheduled Cholecalciferol (Vitamin D 1000 Unit), 1,000 INTER.UNIT PO DAILY Cinacalcet (Sensipar), 30 MG PO DAILY Clopidogrel (Plavix), 75 MG PO DAILY Diphenoxylate/Atropine (Lomotil), 1 TAB PO prn Levothyroxine Sodium (Synthroid), 75 MCG PO DAILY Metoprolol Succinate (Toprol Xl), 25 MG PO DAILY Pantoprazole (Protonix), 40 MG PO DAILY Potassium Ext Rel (Klor-Con), 20 MEQ PO DAILY Pravastatin (Pravachol ), 20 MG PO MWF Prednisone (Prednisone), 5 MG PO DAILY Verapamil Hcl (Verapamil Hcl Er), 240 MG PO HS Miscellaneous Medications Nitroglycerin (Intra-Anal) (Rectiv) Current Inpatient Medications Current Inpatient Medications Medications (Trade) Dose Ordered Sig/Timo Route Start Time Stop Time Status Last Admin Dose Admin Octreotide Acetate 500 mcg/ Sodium Chloride 105 ml @ 10 mls/hr [id number] IV 12/08/16 08:00 12/08/16 18:29 12/08/16 08:27 10 MLS/HR Pantoprazole Sodium/Dextrose (Protonix Inj/D5 100ml) 100 ml @ 20 mls/hr Q5H IV 12/08/16 08:30 12/08/16 13:29 12/08/16 08:27 20 MLS/HR Propofol 1 dose 1 dose UD PRN IV 12/08/16 09:00 12/11/16 08:59 12/08/16 09:22 1 DOSE Sodium Chloride (Nss 1000ml) 1,000 ml @ 100 mls/hr Q10H IV 12/08/16 11:33 01/07/17 11:32 UNV Lorazepam (Ativan Inj) 0.5 mg Q4H PRN IV 12/08/16 11:45 01/07/17 11:44 UNV Morphine Sulfate (MoRPHine SULFATE INJ) 2 mg Q2H PRN IV 12/08/16 11:45 12/22/16 11:44 UNV Pantoprazole Sodium (Protonix IV Bolus/Drip) 1 ea NOW STAT IV 12/08/16 11:33 12/08/16 11:34 UNV Review of Systems 12 systems reviewed and negative other than previously mentioned in the HPI. Physical Exam Date Time Temp Pulse Resp B/P Pulse Ox O2 Delivery O2 Flow Rate FiO2 12/08/16 11:50 69 14 122/56 100 Mechanical Ventilator 40 12/08/16 11:40 68 14 121/50 100 Mechanical Ventilator 40 12/08/16 11:30 67 14 131/51 100 Mechanical Ventilator 40 12/08/16 11:20 77 14 121/53 100 Mechanical Ventilator 40 12/08/16 11:10 68 14 128/53 100 Mechanical Ventilator 40 12/08/16 11:00 68 14 112/51 100 Mechanical Ventilator 40 12/08/16 10:50 73 14 119/53 100 Mechanical Ventilator 40 12/08/16 10:40 36.4 67 14 173/80 100 Mechanical Ventilator 40 12/08/16 09:25 105 201/118 100 Mechanical Ventilator 12/08/16 09:19 110 217/104 100 Mechanical Ventilator 12/08/16 09:16 40 12/08/16 09:03 100 12/08/16 08:53 95 12/08/16 08:51 94 16 113/69 94 Room Air 12/08/16 08:36 55 12/08/16 08:24 70 18 112/54 100 Room Air 12/08/16 07:41 77 20 100/53 97 Room Air 12/08/16 07:29 37.0 78 20 114/57 97 Room Air 12/08/16 07:29 100 Room Air Vital Signs - as noted Laboratory Data - as noted Physical Exam: General - NAD, Cold covered in multiple blankets Eyes - PERRL, EOMI No icterus, gaze conjugate ENT - Mucosa moist, no lesions or candidiasis, no upper dentition Neck - Supple, trachea midline, no masses or lymphadenopathy, no JVD or bruits Lungs - No paradoxical chest wall movement, expiratory rhonchi noted through, coarse inspiratory breath sounds equal bilaterally/throughout, no wheezes or rales Heart - Irregularly irregular, No murmur, rubs, clicks, or gallops appreciated Abdomen -BS present, no bruits noted, tympanic to percussion, soft, nontender, nondistended, no organomegaly Extremities - No edema, pedal pulses intact Neuro - A&OX3 Strength moves all extremities appropriately Reflexes: Patellar and plantar normal and equal CN:PERRL, EOMI, no facial asymmetry, uvula/tongue midline Laboratory Results Last 24 Hours Test 12/08/16 08:00 12/08/16 08:16 12/08/16 08:50 12/08/16 08:54 White Blood Count 21.14 K/uL 17.41 K/uL Red Blood Count 2.88 M/uL 2.70 M/uL Hemoglobin 9.0 g/dL 8.4 g/dL Hematocrit 26.6 % 25.3 % Mean Corpuscular Volume 92.4 fL 93.7 fL Mean Corpuscular Hemoglobin 31.3 pg 31.1 pg Mean Corpuscular Hemoglobin Concent 33.8 g/dl 33.2 g/dl Platelet Count 295 K/uL 239 K/uL Mean Platelet Volume 11.0 fL 10.8 fL Neutrophils (%) (Auto) 75.6 % 80.6 % Lymphocytes (%) (Auto) 15.0 % 10.4 % Monocytes (%) (Auto) 7.9 % 7.5 % Eosinophils (%) (Auto) 0.5 % 0.3 % Basophils (%) (Auto) 0.2 % 0.2 % Neutrophils # (Auto) 15.98 K/uL 14.04 K/uL Lymphocytes # (Auto) 3.18 K/uL 1.81 K/uL Monocytes # (Auto) 1.66 K/uL 1.30 K/uL Eosinophils # (Auto) 0.10 K/uL 0.05 K/uL Basophils # (Auto) 0.05 K/uL 0.04 K/uL RDW Standard Deviation 48.9 fL 49.6 fL RDW Coefficient of Variation 14.4 % 14.4 % Immature Granulocyte % (Auto) 0.8 % 1.0 % Immature Granulocyte # (Auto) 0.17 K/uL 0.17 K/uL Prothrombin Time 11.4 SECONDS Prothromb Time International Ratio 1.1 Activated Partial Thromboplast Time 20.8 SECONDS Partial Thromboplastin Ratio 0.8 Sodium Level 142 mmol/L Potassium Level 4.2 mmol/L Chloride Level 110 mmol/L Carbon Dioxide Level 19 mmol/L Anion Gap 13.0 mmol/L 17.0 mmol/L 20.0 mmol/L Blood Urea Nitrogen 65 mg/dl Creatinine 0.70 mg/dl Est Creatinine Clear Calc Drug Dose 50.4 ml/min Estimated GFR () 92.9 Estimated GFR (Non- 80.1 BUN/Creatinine Ratio 93.3 Random Glucose 121 mg/dl Calcium Level 8.4 mg/dl Total Bilirubin 0.2 mg/dl Direct Bilirubin < 0.1 mg/dl Aspartate Amino Transf (AST/SGOT) 9 U/L Alanine Aminotransferase (ALT/SGPT) 13 U/L Alkaline Phosphatase 29 U/L Total Creatine Kinase 18 U/L Creatine Kinase MB 1.0 ng/ml Creatine Kinase MB Ratio 5.6 Troponin I < 0.015 ng/ml Total Protein 5.1 gm/dl Albumin 2.9 gm/dl Lipase 90 U/L Bedside Hemoglobin 8.5 g/dl 8.2 g/dl Bedside Hematocrit 25 % 24 % Bedside Sodium 140 mEq/L 141 mEq/L Bedside Potassium 4.2 mEq/L 4.0 mEq/L Bedside Chloride 107 mEq/L 107 mEq/L Bedside Total CO2 21 mEq/l 18 mEq/l Bedside Blood Urea Nitrogen 66 mg/dl 67 mg/dl Bedside Creatinine 0.7 mg/dl 0.6 mg/dl Bedside Glucose (other) 121 mg/dl 128 mg/dl Bedside Ionized Calcium (Patrizia) 1.18 mmol/l 1.15 mmol/l Hypochromasia PRESENT Test 12/08/16 11:33 Diagnostic Results EGD Findings: The esophagus was normal. A small hiatus hernia was present. One non-bleeding cratered gastric ulcer with a visible vessel was found in the gastric body. The lesion was 8 mm in largest dimension. Area was successfully injected with 2 mL of a 1:10,000 solution of epinephrine for hemostasis. Coagulation for hemostasis using heater probe was successful. Two 4 mm stigmata of recent bleeding angioectasias were found in the gastric fundus. Area was successfully injected with 2 mL of a 1:10,000 solution of epinephrine for hemostasis. Vaporization for hemostasis using heater probe was successful. The examined duodenum was normal. Impression: - Normal esophagus. - Small hiatus hernia. - Non-bleeding gastric ulcer with a visible vessel. Injected. Treated with a heater probe. - Two recently bleeding angioectasias in the stomach. Injected. Treated with a heater probe. - Normal examined duodenum. - No specimens collected. Recommendation: - Admit the patient to ICU for ongoing care. - Give Protonix (pantoprazole): 8 mg/hr IV by continuous infusion for 3 days. - Observe patient's clinical course following today's procedure with therapeutic intervention. Tyron Mauricio, DO 12/08/2016 10:34:56 AM This report has been signed electronically. Note Initiated On: 12/08/2016 9:[address] SCAN OF THE ABDOMEN AND PELVIS WITHOUT CONTRAST CLINICAL HISTORY: Hematemesis. Vomiting. COMPARISON STUDY: 11/26/2016 TECHNIQUE: CT scan of the abdomen and pelvis was performed from the lung bases to the proximal femurs. Images are reviewed in the axial, sagittal, and coronal planes. IV contrast was not administered for this examination. CT DOSE: 687.72 mGycm FINDINGS: Lower chest: There are postsurgical changes of midline sternotomy. No pleural effusions are visualized. There is no focal pulmonary consolidation. Liver: The unenhanced liver is normal in size, contour, and attenuation. There is no intrahepatic biliary ductal dilatation. Gallbladder: Unremarkable. Spleen: Normal in size and attenuation. Pancreas: Unremarkable. Adrenal glands: Unremarkable. Kidneys: There is no hydronephrosis. There is a 2 mm left renal calcification. Bowel: There is mild fecal retention. There are no transition zones indicate bowel obstruction. There is colonic diverticulosis. No acute peridiverticular inflammatory changes are visualized. There is mild bowel wall thickening involving the descending colon. This may indicate a mild enteritis. There is a hiatal hernia. There is nonspecific soft tissue fullness at the esophagogastric junction. Peritoneum: There is no intraperitoneal free air or abdominal ascites. Vasculature: There is no evidence of abdominal aortic aneurysm. An IVC filter is visualized. Adenopathy: None. Pelvic viscera: There is a pessary. The patient appears be status post a prior hysterectomy. Skeletal structures: There is an area of sclerosis in the intertrochanteric right femur, likely representing a bone island. The bones are osteopenic. There is an old T12 wedge compression deformity. IMPRESSION: 1. No evidence of bowel obstruction. No evidence of free air 2. Diverticulosis. No evidence of acute diverticulitis 3. Mild bowel wall thickening involving the descending colon. This may indicate a mild enteritis. 4. Hiatal hernia with soft tissue prominence of the esophagogastric junction 5. Fecal retention Electronically signed by: Nehemiah Mccormack M.D. 12/08/2016 8:27 AM Dictated Date/Time: 12/08/2016 8:18 AM EKG Vent. rate 79 BPM WA interval 158 ms QRS duration 70 ms QT/QTc 358/410 ms P-R-T axes 55 7 61 NSR on this EKG, no acute ST or ischemic changes noted. CHEST ONE VIEW PORTABLE HISTORY: Pt c/o hematemesis COMPARISON: Chest 12/08/2016. FINDINGS: The endotracheal tube terminates 2.5 cm from the willem. There are poststernotomy changes. The heart is normal in size. No pleural effusions. No pneumothorax. The lungs are clear. No evidence for pulmonary edema. IMPRESSION: The endotracheal tube terminates 2.5 cm from the willem. Electronically signed by: Gustavo Pickard M.D. 12/08/2016 9:44 AM Dictated Date/Time: 12/08/2016 9:19 AM Assessment & Plan (1) Acute GI bleeding Emergent EGD 12/[address] Ackerman Case findings as noted above * No acute bleeding seen, multiple recent sites noted History of peptic ulcer disease, previous GI bleed, and chronic Plavix use Known Bleeding hemorrhoid 6pk of Plts transfused today H&H recently 12.7; today 8.2 Recommendations per GI * Protonix Infusion: 8 mg/hour IV for 3 days * Continue current Octreotide drip NPO Maintain at minimum 2: 18g PIVs Follow Clinically (2) Anemia 6 pack of Plts transfused today during EGD GI Bleed as noted during emergent EGD today Hgb at 8.2 today, recently was 12.7 Repeat H&H q6hrs Hold transfusion currently Keep all combined fluids to a rate of approx 75ml/hr (3) Coronary artery disease CAD s/p CABG x3 Known paroxysmal A fib; currently rate controlled Negative Troponin x1, Trend total of 3 EKG prn chest pain Chronic Plavix use, Hold currently in setting of GI Bleed Hold ASA Continue Home medication * Pravastatin 20mg PO MWF (4) History of hypertension Hx of HTN in prehospital setting SBP currently 120's Continue Home medication as BP tolerates * Metoprolol Succinate 25mg PO qDaily * Verapamil Hcl 240mg PO HS * GOAL MAP: >65 Monitor on telemetry (5) Hypothyroid Hx of Hypothyroidism, Use of Levothyroxine at home Continue Synthroid 75mcg PO qDaily Obtain TSH level with morning labs (6) Hyperparathyroidism Continue Home medications * Cinacalcet 30mg PO daily * Vitamin D 1,000 IU PO qDaily (7) Multiple myeloma Pt followed by Dr. Rashid with [facility] Receives Zometa monthly, last dose 10/07 No current plan for chemotherapy Stable plasma dyscrasia, stage II. Followed by Dr. Marquez in-patient I.D: * Afebrile, WBCs trending down 17.41 * Rocephin 1gm IV prophylaxis with EGD Endo: * BSGs: 121-128 * BSG POC per nursing protocol DVT Prophylaxis: No anticoagulation in the setting of a GI Bleed, SCD's ordered GI Prophylaxis: Protonix infusion currently in place. HOB at 30* Access: * Currently has 2 (20g) PIVs and 1 (18g) PIV in place * Obtain second 18g PIV; at that time can d/c 20g IV's CCT: 35 minutes; Not including any billable procedures. Thank you for including us in the care of this patient. Please review Dr. Simone Palma addendum for further recommendations. I have personally evaluated and examined this patient. I agree with assessment and plan of Ev Culver PA-C. Patient remained hemodynamic stable. H/H down to 7.2 without complaint. Will transfuse if below 7.
[2016-12-08] MEDS ORDERED: DIPHENOXYLATE/ATROPINE 2.5/0.025MG TAB PO SCH (12:15)
--- NOTE | 2016-12-08 12:15 | History and Physical ---
History & Physical Date & Time of Service: Dec 08, 2016 at 10:34 Chief Complaint: Vomiting Primary Care Physician: Hussain Woody M.D. History of Present Illness Source: clinic records, hospital records This is an 81 yo F with PMHx of Multiple myeloma, peptic ulcer disease, external hemorrhoids with BRBPR, chronic diarrhea, s/p ME, CAD s/p CABG, paroxysmal afib, HTN, dyslipidemia, hyperparathyroidism, hypothyroidism, who has been following Dr. Maier with gastroenterology as an outpatient. The patient was brought to the ED via ambulance for increased weakness and multiple episodes of hematochezia and hematemesis. Pt was found to have an acute drop in Hgb from 12/7 to 8.2. She was emergently taken to the OR to evaluate and achieved hemostasis by GI, Dr. Maier. During procedure 2 avascular malformations and one bleeding ulcer were found and cauterized. Medicine has been asked to admit to the ICU. She is currently ventilated. Anthestesia is planning to attempt to extubate soon. Past Medical/Surgical History Medical Problems: (1) Coronary artery disease Status: Chronic (2) Hypertension Status: Chronic 3. Peptic Ulcer Disease 4. GI bleed 5. HTN 6. CAD s/p cabg 7. Paroxsysmal atrial fibrillation 8. Hypothyroidism 9. Hyperparathyroidism 10. Multiple myeloma Surgical Problems: (1) S/P CABG (coronary artery bypass graft) Status: Resolved (2) S/P hysterectomy Status: Chronic Family History Diabetes Hypertension Social History Smoking Status: Never Smoker Drug Use: none Occupational Status: retired Immunizations History of Influenza Vaccine: Yes History of Tetanus Vaccine?: unknown History of Pneumococcal: Yes History of Hepatitis B Vaccine: Yes Multi-Drug Resistant Organisms History of MDRO: No Allergies Coded Allergies: Aspartame (Verified Allergy, Mild, 12/08/16) Shellfish (Verified Allergy, Mild, 12/08/16) Ciprofloxacin (Verified Allergy, Unknown, ., 12/08/16) Iodinated Diagnostic Agents (Verified Allergy, Unknown, Unknown, 12/08/16) Nitrofurantoin (Verified Allergy, Unknown, Unknown, 12/08/16) Quinolones (Verified Allergy, Unknown, CIPRO, 12/08/16) Sulfa Antibiotics (Verified Allergy, Unknown, Unknown, 12/08/16) Home Medications Scheduled Cholecalciferol (Vitamin D 1000 Unit), 1,000 INTER.UNIT PO DAILY Cinacalcet (Sensipar), 30 MG PO DAILY Clopidogrel (Plavix), 75 MG PO DAILY Diphenoxylate/Atropine (Lomotil), 1 TAB PO prn Levothyroxine Sodium (Synthroid), 75 MCG PO DAILY Metoprolol Succinate (Toprol Xl), 25 MG PO DAILY Pantoprazole (Protonix), 40 MG PO DAILY Potassium Ext Rel (Klor-Con), 20 MEQ PO DAILY Pravastatin (Pravachol ), 20 MG PO MWF Prednisone (Prednisone), 5 MG PO DAILY Verapamil Hcl (Verapamil Hcl Er), 240 MG PO HS Miscellaneous Medications Nitroglycerin (Intra-Anal) (Rectiv) Review of Systems ROS unobtainable due to intubation. Physical Exam Vital Signs Date Time Temp Pulse Resp B/P Pulse Ox O2 Delivery O2 Flow Rate FiO2 12/08/16 09:25 105 201/118 100 Mechanical Ventilator 12/08/16 09:19 110 217/104 100 Mechanical Ventilator 12/08/16 09:16 40 12/08/16 09:03 100 12/08/16 08:53 95 12/08/16 08:51 94 16 113/69 94 Room Air 12/08/16 08:36 55 12/08/16 08:24 70 18 112/54 100 Room Air 12/08/16 07:41 77 20 100/53 97 Room Air 12/08/16 07:29 37.0 78 20 114/57 97 Room Air 12/08/16 07:29 100 Room Air General Appearance: WD/WN, + pertinent finding (ventilated) Head: normocephalic, atraumatic Eyes: EOMI ENT: + pertinent finding (lips are moist, MMM.) Neck: no JVD Respiratory/Chest: lungs clear, no respiratory distress, no accessory muscle use, + pertinent finding (Intubated) Cardiovascular: + pertinent finding (Rhythm is irregular. Rate controlled. No MRGs) Abdomen/GI: normal bowel sounds, non tender, soft Genitourinary - Female: + pertinent finding (Jewell catheter in place draining clear yellow urine. ) Extremities/Musculoskelatal: no calf tenderness, no pedal edema Skin: normal color, warm/dry, no rash Diagnostics Laboratory Results Results Past 24 Hours Test 12/08/16 08:00 12/08/16 08:16 12/08/16 08:50 12/08/16 08:54 Range/Units White Blood Count 21.14 17.41 4.8-10.8 K/uL Red Blood Count 2.88 2.70 4.2-5.4 M/uL Hemoglobin 9.0 8.4 12.0-16.0 g/dL Hematocrit 26.6 25.3 37-47 % Mean Corpuscular Volume 92.4 93.7 80-100 fL Mean Corpuscular Hemoglobin 31.3 31.1 25-34 pg Mean Corpuscular Hemoglobin Concent 33.8 33.2 32-36 g/dl Platelet Count 295 239 130-400 K/uL Mean Platelet Volume 11.0 10.8 7.4-10.4 fL Neutrophils (%) (Auto) 75.6 80.6 % Lymphocytes (%) (Auto) 15.0 10.4 % Monocytes (%) (Auto) 7.9 7.5 % Eosinophils (%) (Auto) 0.5 0.3 % Basophils (%) (Auto) 0.2 0.2 % Neutrophils # (Auto) 15.98 14.04 1.4-6.5 K/uL Lymphocytes # (Auto) 3.18 1.81 1.2-3.4 K/uL Monocytes # (Auto) 1.66 1.30 0.11-0.59 K/uL Eosinophils # (Auto) 0.10 0.05 0-0.5 K/uL Basophils # (Auto) 0.05 0.04 0-0.2 K/uL RDW Standard Deviation 48.9 49.6 36.4-46.3 fL RDW Coefficient of Variation 14.4 14.4 11.5-14.5 % Immature Granulocyte % (Auto) 0.8 1.0 % Immature Granulocyte # (Auto) 0.17 0.17 0.00-0.02 K/uL Prothrombin Time 11.4 9.0-12.0 SECONDS Prothromb Time International Ratio 1.1 0.9-1.1 Activated Partial Thromboplast Time 20.8 21.0-31.0 SECONDS Partial Thromboplastin Ratio 0.8 Sodium Level 142 136-145 mmol/L Potassium Level 4.2 3.5-5.1 mmol/L Chloride Level 110 98-107 mmol/L Carbon Dioxide Level 19 21-32 mmol/L Anion Gap 13.0 17.0 20.0 16-25 mmol/L Blood Urea Nitrogen 65 7-18 mg/dl Creatinine 0.70 0.60-1.20 mg/dl Est Creatinine Clear Calc Drug Dose 50.4 ml/min Estimated GFR () 92.9 Estimated GFR (Non- 80.1 BUN/Creatinine Ratio 93.3 10-20 Random Glucose 121 70-99 mg/dl Calcium Level 8.4 8.5-10.1 mg/dl Total Bilirubin 0.2 0.2-1 mg/dl Direct Bilirubin < 0.1 0-0.2 mg/dl Aspartate Amino Transf (AST/SGOT) 9 15-37 U/L Alanine Aminotransferase (ALT/SGPT) 13 12-78 U/L Alkaline Phosphatase 29 45-117 U/L Total Creatine Kinase 18 26-192 U/L Creatine Kinase MB 1.0 0.5-3.6 ng/ml Creatine Kinase MB Ratio 5.6 0-3.0 Troponin I < 0.015 0-0.045 ng/ml Total Protein 5.1 6.4-8.2 gm/dl Albumin 2.9 3.4-5.0 gm/dl Lipase 90 73-393 U/L Bedside Hemoglobin 8.5 8.2 12.0-16.0 g/dl Bedside Hematocrit 25 24 37-47 % Bedside Sodium 140 141 135-144 mEq/L Bedside Potassium 4.2 4.0 3.3-5.0 mEq/L Bedside Chloride 107 107 101-112 mEq/L Bedside Total CO2 21 18 24-31 mEq/l Bedside Blood Urea Nitrogen 66 67 7-18 mg/dl Bedside Creatinine 0.7 0.6 0.6-1.3 mg/dl Bedside Glucose (other) 121 128 70-99 mg/dl Bedside Ionized Calcium (Patrizia) 1.18 1.15 1.12-1.32 mmol/l Hypochromasia PRESENT Diagnostic Radiology CT SCAN OF THE ABDOMEN AND PELVIS WITHOUT CONTRAST CLINICAL HISTORY: Hematemesis. Vomiting. COMPARISON STUDY: 11/26/2016 TECHNIQUE: CT scan of the abdomen and pelvis was performed from the lung bases to the proximal femurs. Images are reviewed in the axial, sagittal, and coronal planes. IV contrast was not administered for this examination. CT DOSE: 687.72 mGycm FINDINGS: Lower chest: There are postsurgical changes of midline sternotomy. No pleural effusions are visualized. There is no focal pulmonary consolidation. Liver: The unenhanced liver is normal in size, contour, and attenuation. There is no intrahepatic biliary ductal dilatation. Gallbladder: Unremarkable. Spleen: Normal in size and attenuation. Pancreas: Unremarkable. Adrenal glands: Unremarkable. Kidneys: There is no hydronephrosis. There is a 2 mm left renal calcification. Bowel: There is mild fecal retention. There are no transition zones indicate bowel obstruction. There is colonic diverticulosis. No acute peridiverticular inflammatory changes are visualized. There is mild bowel wall thickening involving the descending colon. This may indicate a mild enteritis. There is a hiatal hernia. There is nonspecific soft tissue fullness at the esophagogastric junction. Peritoneum: There is no intraperitoneal free air or abdominal ascites. Vasculature: There is no evidence of abdominal aortic aneurysm. An IVC filter is visualized. Adenopathy: None. Pelvic viscera: There is a pessary. The patient appears be status post a prior hysterectomy. Skeletal structures: There is an area of sclerosis in the intertrochanteric right femur, likely representing a bone island. The bones are osteopenic. There is an old T12 wedge compression deformity. IMPRESSION: 1. No evidence of bowel obstruction. No evidence of free air 2. Diverticulosis. No evidence of acute diverticulitis 3. Mild bowel wall thickening involving the descending colon. This may indicate a mild enteritis. 4. Hiatal hernia with soft tissue prominence of the esophagogastric junction 5. Fecal retention Electronically signed by: Nehemiah Mccormack M.D. 12/08/2016 8:27 AM Dictated Date/Time: 12/08/2016 8:18 AM The status of this report is Signed. Draft = Not yet reviewed or approved by Radiologist. Signed = Reviewed and approved by Radiologist. EKG Vent. rate 79 BPM FL interval 158 ms QRS duration 70 ms QT/QTc 358/410 ms P-R-T axes 55 7 61 NSR on this EKG, no acute ST or ischemic changes noted. Impression Assessment and Plan GI Bleed/ Peptic Ulcer disease/ Chronic Diarrhea/ External Hemorrhoids - Admit to ICU - Pt was urgently taken to the OR s/p increasing weakness and multiple episodes of hematemesis and hematchezia by GI. - Intubation performed in ED due to airway compromise with hematemesis and risk for aspiration. - Pt follows with Dr. Maier as an outpatient - GI on board. - Started on Protonix and octreotide gtt, continue - NSS bolus in the ED. Will continue hold off on maintenance fluids for no as her BP are stabilized with MAP >65 in PACU. - NPO - Pt recieved 6 U platelets prior to surg. - Hbg was previously 12.7 within the past few weeks, will trend H&H Q6H, most recent Hgb =8.2 - Troponin I first set negative, follow x 2 more sets - Type and screen, at this time no PRBC transfusion, INR 1.1 - Per operative note: EGD showed avascular malformation x 2 and 1 ulceration which was cauterized with epinephrine CAD s/p CABG x 3 Paroxsysmal Atrial fibrillation - Pt was previously admitted in Nov 2014 for melena, found to have a popliteal DVT and was started on lovenox and coumadin, then transitioned to plavix for anticoagulation as this reduced the risk or ulcers compared to coumadin or asa, with her pmhx of peptic ulcers - Pt has been on plavix, will HOLD - INR 1.1, will follow - Consult cardiology for anticoagulation recommendations - Hold ASA HTN - Cont verapamil 240 mg PO HS - Cont metoprolol succinate 25 mg daily Dyslipidemia - Cont waitstaff captain pravastatin MWF Multiple Myeloma - Stable plasma dyscrasia, stage II. Followed by Dr. Marquez - Received Zometa monthly last in Sep 2016, plan for no chemotherapy at this time - Follows with Dr[facility] Rashid with [facility] Hyperparathyroidism - Cont [facility] sensispar 30 mg daily Hypothyroidism - Cont levothyroxine 75 mcg daily DVT ppx: no chemical anticoagulation with GI bleed, SCDs, teds CODE STATUS: Full Code, will need to be discussed with the family and orders updated. Disposition: Unknown at this time. Level of Care Critical Care Resuscitation Status FULL RESUSCITATION VTE Prophylaxis VTE Risk Assessment Done? Y/N: Yes Risk Level: Low Given or contraindicated: T.E.D. Stockings, SCD's, Contraindicated
[2016-12-08] MEDS ORDERED: OCTREOTIDE IV BOLUS & DRIP IV PRN (12:37)
[2016-12-08] MEDS ORDERED: HYDROmorphone INJ 1 MG/ML SYR IV PRN (12:45)
[2016-12-08] MEDS ORDERED: EpHEDrine SULFATE INJ 50 MG/ML AMP IV PRN (12:45)
[2016-12-08] MEDS ORDERED: LABETALOL HCL IV 5 MG/ML 20ML IV PRN (12:45)
[2016-12-08] MEDS ORDERED: MEPERIDINE HCL 25 MG/ML CARP IV PRN (12:45)
[2016-12-08] MEDS ORDERED: FENTANYL CITRATE INJ 50 MCG/1 ML 2 ML VIAL IV PRN (12:45)
[2016-12-08] MEDS ORDERED: ONDANSETRON INJ 2 MG/ML 2 ML VIAL IV PRN (12:45)
[2016-12-08] MEDS ORDERED: ATROPINE SULFATE 0.1 MG/ML 5ML SYR IV PRN (12:45)
--- NOTE | 2016-12-08 12:48 | Anesthesiology Progress Note ---
Anesthesia Post Op Note Date & Time Dec 08, 2016 at 12:35 Vital Signs Pain Intensity: 6 Vital Signs Past 12 Hours Date Time Temp Pulse Resp B/P Pulse Ox O2 Delivery O2 Flow Rate FiO2 12/08/16 12:30 92 19 127/78 96 Mask 10 12/08/16 12:20 86 19 106/89 90 Mask 10 12/08/16 12:10 85 14 137/72 100 Mechanical Ventilator 40 12/08/16 12:00 72 14 116/56 100 Mechanical Ventilator 40 12/08/16 11:50 69 14 122/56 100 Mechanical Ventilator 40 12/08/16 11:40 68 14 121/50 100 Mechanical Ventilator 40 12/08/16 11:30 67 14 131/51 100 Mechanical Ventilator 40 12/08/16 11:20 77 14 121/53 100 Mechanical Ventilator 40 12/08/16 11:10 68 14 128/53 100 Mechanical Ventilator 40 12/08/16 11:00 68 14 112/51 100 Mechanical Ventilator 40 12/08/16 10:50 73 14 119/53 100 Mechanical Ventilator 40 12/08/16 10:40 36.4 67 14 173/80 100 Mechanical Ventilator 40 12/08/16 09:25 105 201/118 100 Mechanical Ventilator 12/08/16 09:19 110 217/104 100 Mechanical Ventilator 12/08/16 09:16 40 12/08/16 09:03 100 12/08/16 08:53 95 12/08/16 08:51 94 16 113/69 94 Room Air 12/08/16 08:36 55 12/08/16 08:24 70 18 112/54 100 Room Air 12/08/16 07:41 77 20 100/53 97 Room Air 12/08/16 07:29 37.0 78 20 114/57 97 Room Air 12/08/16 07:29 100 Room Air Notes Mental Status: alert / awake / arousable, participated in evaluation Pt Amnestic to Procedure: Yes Nausea / Vomiting: adequately controlled Pain: adequately controlled Airway Patency, RR, SpO2: stable & adequate BP & HR: stable & adequate Hydration State: stable & adequate Anesthetic Complications: no major complications apparent Pt presented with upper GI bleeding. Was intubated in E.D.reportedly for airway protection. Was medicated in E.D. with IV sedation and vecuronium. Had EGD done in [place]. After completion of procedure, pt had no twitches in response to PNS. Pt was ventilated mechanically in PACU until 3 twitches observed on train-of four stimulation. At that point, glycopyrrolate 0.4 mg plus neostigmine 3 mg was given intravenously. Pt emerged with adequate spontaneous breathing. She demonstrated sustained tetanus @ 50 Hz and opened eyes to verbal stimulus. Pharynx was suctioned, pt extubated and placed on O2 mask. Plan is for transfer to ICU for observation and further treatment as per medical staff.
[2016-12-08] MEDS ORDERED: ETOMIDATE 2 MG/ML 20 ML VIAL IV ONE (14:17)
[2016-12-08] MEDS ORDERED: VECURONIUM BROMIDE 10 MG VIAL IV ONE (14:17)
[2016-12-08] MEDS ORDERED: SODIUM CHLORIDE 0.9% 10ML FLUSH IV ONE (14:17)
[2016-12-08] MEDS ORDERED: SUCCINYLCHOLINE CHLORIDE 20 MG/ML 10 ML VIAL IV ONE (14:17)
[2016-12-08] MEDS: PANTOprazole INJ 40 MG in DEXTROSE 5% 100ML IV SCH ×2 (14:29→19:41)
[2016-12-08 14:42] LABS: HEMATOCRIT 24.2 % (37-47)
[2016-12-08] MEDS: MoRPHine SULFATE 2 MG/ML CARP IV PRN ×3 (15:03→21:55)
[2016-12-08] MEDS ORDERED: AMIODARONE IV BOLUS / DRIP IV STA (17:23)
[2016-12-08] MEDS ORDERED: AMIODARONE / D5W 100 ML IV ONE (17:45)
--- NOTE | 2016-12-08 17:58 | Cardiology Consultation ---
Cardiology Consultation Date of Consultation: Dec 08, 2016. Reason for Consultation: Anticoagulation, atrial fibrillation, GI bleed Pt evaluation today including: conversation w/ patient, physical exam, lab review, review of studies, review of inpatient medication list History of Present Illness This is a 81-year-old woman who has a history of multiple myeloma, as well as coronary artery disease including bypass surgery in 2006, a DVT with an IVC filter insertion in 2014 (she had GI bleeding on anticoagulation at that time) and paroxysmal atrial fibrillation. She has not been anticoagulated due to her bleeding history, she is on aspirin and Plavix however. She presented with hematemesis on 12/08/2016. From the cardiac standpoint she denies chest pain or palpitations, she is followed by Dr. Wiley in our office. In the hospital she has been having paroxysmal atrial fibrillation. Past Medical/Surgical History Medical Problems: (1) Coronary artery disease Status: Chronic (2) Hypertension Status: Chronic 3. Peptic Ulcer Disease 4. GI bleed 5. HTN 6. CAD s/p cabg 7. Paroxsysmal atrial fibrillation 8. Hypothyroidism 9. Hyperparathyroidism 10. Multiple myeloma Surgical Problems: (1) S/P CABG (coronary artery bypass graft) Status: Resolved (2) S/P hysterectomy Status: Chronic Family History Diabetes Hypertension Social History Smoking Status: Never Smoker History of Alcohol Use: No Review of Systems Constitutional: No fever, No weakness, No weight loss Respiratory: No cough, No wheezing Cardiac: No chest pain, No palpitations Abdomen: + GI bleeding, + see HPI, + vomiting, No diarrhea, No nausea, No pain Female : No problem reported Neurologic: No balance problems, No numbness/tingling, No paralysis, No weakness Heme: No abnormal bleeding/bruising, No clotting problems Endo: No fatigue Skin: No problem reported Allergies Coded Allergies: Aspartame (Verified Allergy, Mild, HEADACHES, N/V, 01/04/17) Shellfish (Verified Allergy, Mild, HEADACHE AND N/V, 01/04/17) Ciprofloxacin (Verified Allergy, Unknown, ELEVATED BLOOD PRESSURE, 01/04/17 ) Iodinated Diagnostic Agents (Verified Allergy, Unknown, R/T SHELLFISH ALLERGY, 01/04/17) Nitrofurantoin (Verified Allergy, Unknown, GI UPSET AND ABDOMINAL PAIN/ SWELLING, 01/04/17) Quinolones (Verified Allergy, Unknown, CIPRO - ELEVATED BLOOD PRESSURE, ) Sulfa Antibiotics (Verified Allergy, Unknown, UNKNOWN - PT STATES DOES NOT REMEMBER, 01/04/17) Medications Current Inpatient Medications Medications (Trade) Dose Ordered Sig/Timo Route Start Time Stop Time Status Last Admin Dose Admin Octreotide Acetate 500 mcg/ Sodium Chloride 105 ml @ 10 mls/hr [id number] IV 12/08/16 08:00 12/08/16 18:29 12/08/16 08:27 10 MLS/HR Sodium Chloride (Nss 1000ml) 1,000 ml @ 45 mls/hr [id number] IV 12/08/16 11:33 01/07/17 11:32 12/08/16 15:03 45 MLS/HR Lorazepam (Ativan Inj) 0.5 mg Q4H PRN IV 12/08/16 11:45 01/07/17 11:44 Morphine Sulfate (MoRPHine SULFATE INJ) 2 mg Q2H PRN IV 12/08/16 11:45 12/22/16 11:44 12/08/16 15:03 2 MG Cholecalciferol (Vitamin D Tab) 1,000 inter.unit DAILY PO 12/09/16 09:00 01/08/17 08:59 Levothyroxine Sodium (Synthroid Tab) 75 mcg DAILYBB PO 12/09/16 06:00 01/08/17 05:59 Metoprolol Succinate (Toprol Xl Tab) 25 mg DAILY PO 12/09/16 09:00 01/08/17 08:59 Prednisone (PredniSONE TAB) 5 mg DAILY PO 12/09/16 09:00 01/08/17 08:59 Cinacalcet (Sensipar) 30 mg DAILY PO 12/09/16 09:00 01/08/17 08:59 Pravastatin Sodium (Pravachol Tab) 20 mg MoWeFr@0900 PO 12/09/16 09:00 01/08/17 08:59 Fentanyl Citrate (Fentanyl Inj) 50 mcg Q5M PRN IV 12/08/16 12:45 12/08/16 19:45 Hydromorphone HCl (Dilaudid Inj) 0.5 mg Q5M PRN IV 12/08/16 12:45 12/08/16 19:45 Meperidine HCl (Demerol Inj) 25 mg Q5M PRN IV 12/08/16 12:45 12/08/16 19:45 Ondansetron HCl (Zofran Inj) 4 mg ONE PRN IV 12/08/16 12:45 12/08/16 19:45 Labetalol HCl (Normodyne IV) 5 mg Q5M PRN IV 12/08/16 12:45 12/08/16 19:45 Ephedrine Sulfate (EpHEDrine SULFATE INJ) 5 mg Q5M PRN IV 12/08/16 12:45 12/08/16 19:45 Atropine Sulfate 0.5 mg 0.5 mg Q1M PRN IV 12/08/16 12:45 12/08/16 19:45 Pantoprazole Sodium 40 mg/ Dextrose 100 ml @ 20 mls/hr Q5H IV 12/08/16 13:30 01/07/17 13:29 12/08/16 14:29 20 MLS/HR Octreotide Acetate 500 mcg/ Sodium Chloride 105 ml @ 10 mls/hr [id number] IV 12/08/16 18:30 01/07/17 18:29 Amiodarone HCL/ Dextrose 100 ml @ 600 mls/hr NOW ONCE IV 12/08/16 17:45 12/08/16 17:54 Amiodarone HCL/ Dextrose 200 ml @ 33.3 mls/hr Q6H1M IV 12/08/16 18:00 12/09/16 00:00 Amiodarone HCL/ Dextrose (Nexterone / D5w) 200 ml @ 16.7 mls/hr [id number] IV 12/09/16 00:01 01/08/17 00:00 Physical Exam Vital Signs Past 12 Hours Date Time Temp Pulse Resp B/P Pulse Ox O2 Delivery O2 Flow Rate FiO2 12/08/16 14:00 36.8 91 20 107/73 100 Nasal Cannula 4.0 12/08/16 13:10 36.8 90 20 106/56 98 Nasal Cannula 4.0 12/08/16 12:50 36.6 83 18 120/78 94 Mask 10 12/08/16 12:40 81 13 104/74 96 Mask 10 12/08/16 12:30 92 19 127/78 96 Mask 10 12/08/16 12:20 86 19 106/89 90 Mask 10 12/08/16 12:10 85 14 137/72 100 Mechanical Ventilator 40 12/08/16 12:00 72 14 116/56 100 Mechanical Ventilator 40 12/08/16 11:50 69 14 122/56 100 Mechanical Ventilator 40 12/08/16 11:40 68 14 121/50 100 Mechanical Ventilator 40 12/08/16 11:30 67 14 131/51 100 Mechanical Ventilator 40 12/08/16 11:20 77 14 121/53 100 Mechanical Ventilator 40 12/08/16 11:10 68 14 128/53 100 Mechanical Ventilator 40 12/08/16 11:00 68 14 112/51 100 Mechanical Ventilator 40 12/08/16 10:50 40 12/08/16 10:50 73 14 119/53 100 Mechanical Ventilator 40 12/08/16 10:40 36.4 67 14 173/80 100 Mechanical Ventilator 40 12/08/16 09:25 105 201/118 100 Mechanical Ventilator 12/08/16 09:19 110 217/104 100 Mechanical Ventilator 12/08/16 09:16 40 12/08/16 09:03 100 12/08/16 08:53 95 12/08/16 08:51 94 16 113/69 94 Room Air 12/08/16 08:36 55 12/08/16 08:24 70 18 112/54 100 Room Air 12/08/16 07:41 77 20 100/53 97 Room Air 12/08/16 07:29 37.0 78 20 114/57 97 Room Air 12/08/16 07:29 100 Room Air Constitutional: General Apperance: heathly-appearing Level of Distress: NAD Psychiatric: Mental Status: active & alert Head: normocephalic Eyes: EOM: EOMI ENMT: normal ENT inspection, hearing grossly normal Neck: supple, no masses Lungs: Respiratory effort: no dyspnea, good air movement Auscultation: breath sounds normal, no wheezing Cardiovascular: Heart Auscultation: RRR, no murmurs, no rubs, no gallops Peripheral Pulses: Bruits: none appreciated Abdomen: Bowel Sounds: normal Inspection & Palpation: soft, no tenderness, guarding & rebound, no masses Musculoskeletal: normal strength (5/5 throughout) Extremities: no edema Neurologic: Cranial Nerves: grossly intact Sensation: grossly intact Data Laboratory Results: Last 24 Hours Test 12/08/16 08:00 12/08/16 08:16 12/08/16 08:50 12/08/16 08:54 White Blood Count 21.14 K/uL 17.41 K/uL Red Blood Count 2.88 M/uL 2.70 M/uL Hemoglobin 9.0 g/dL 8.4 g/dL Hematocrit 26.6 % 25.3 % Mean Corpuscular Volume 92.4 fL 93.7 fL Mean Corpuscular Hemoglobin 31.3 pg 31.1 pg Mean Corpuscular Hemoglobin Concent 33.8 g/dl 33.2 g/dl Platelet Count 295 K/uL 239 K/uL Mean Platelet Volume 11.0 fL 10.8 fL Neutrophils (%) (Auto) 75.6 % 80.6 % Lymphocytes (%) (Auto) 15.0 % 10.4 % Monocytes (%) (Auto) 7.9 % 7.5 % Eosinophils (%) (Auto) 0.5 % 0.3 % Basophils (%) (Auto) 0.2 % 0.2 % Neutrophils # (Auto) 15.98 K/uL 14.04 K/uL Lymphocytes # (Auto) 3.18 K/uL 1.81 K/uL Monocytes # (Auto) 1.66 K/uL 1.30 K/uL Eosinophils # (Auto) 0.10 K/uL 0.05 K/uL Basophils # (Auto) 0.05 K/uL 0.04 K/uL RDW Standard Deviation 48.9 fL 49.6 fL RDW Coefficient of Variation 14.4 % 14.4 % Immature Granulocyte % (Auto) 0.8 % 1.0 % Immature Granulocyte # (Auto) 0.17 K/uL 0.17 K/uL Prothrombin Time 11.4 SECONDS Prothromb Time International Ratio 1.1 Activated Partial Thromboplast Time 20.8 SECONDS Partial Thromboplastin Ratio 0.8 Sodium Level 142 mmol/L Potassium Level 4.2 mmol/L Chloride Level 110 mmol/L Carbon Dioxide Level 19 mmol/L Anion Gap 13.0 mmol/L 17.0 mmol/L 20.0 mmol/L Blood Urea Nitrogen 65 mg/dl Creatinine 0.70 mg/dl Est Creatinine Clear Calc Drug Dose 50.4 ml/min Estimated GFR () 92.9 Estimated GFR (Non- 80.1 BUN/Creatinine Ratio 93.3 Random Glucose 121 mg/dl Calcium Level 8.4 mg/dl Total Bilirubin 0.2 mg/dl Direct Bilirubin < 0.1 mg/dl Aspartate Amino Transf (AST/SGOT) 9 U/L Alanine Aminotransferase (ALT/SGPT) 13 U/L Alkaline Phosphatase 29 U/L Total Creatine Kinase 18 U/L Creatine Kinase MB 1.0 ng/ml Creatine Kinase MB Ratio 5.6 Troponin I < 0.015 ng/ml Total Protein 5.1 gm/dl Albumin 2.9 gm/dl Lipase 90 U/L Bedside Hemoglobin 8.5 g/dl 8.2 g/dl Bedside Hematocrit 25 % 24 % Bedside Sodium 140 mEq/L 141 mEq/L Bedside Potassium 4.2 mEq/L 4.0 mEq/L Bedside Chloride 107 mEq/L 107 mEq/L Bedside Total CO2 21 mEq/l 18 mEq/l Bedside Blood Urea Nitrogen 66 mg/dl 67 mg/dl Bedside Creatinine 0.7 mg/dl 0.6 mg/dl Bedside Glucose (other) 121 mg/dl 128 mg/dl Bedside Ionized Calcium (Patrizia) 1.18 mmol/l 1.15 mmol/l Hypochromasia PRESENT Test 12/08/16 14:24 12/08/16 16:16 Hemoglobin 8.1 g/dL Hematocrit 24.2 % Bedside Glucose 80 mg/dl EKG: On arrival sinus rhythm Telemetry reviewed: Sinus rhythm alternating with periods of atrial fibrillation Assessment & Plan #1. Paroxysmal atrial fibrillation: She appears to have very frequent episodes of atrial fibrillation alternating with periods of sinus rhythm, since hospitalization she has predominantly been in atrial fibrillation however. She has a long history of atrial fibrillation and has been anticoagulated in the past. She has had difficulty with GI bleeding and anticoagulation is currently on hold. I agree with withholding anticoagulation for now, over the long run we may want to reinitiated. Her stroke risk from atrial fibrillation is about 9.7% per year, and her GI bleeding may be controllable with medication adjustments and treatment. For the moment however we can't anticoagulate and I would recommend trying to keep in sinus rhythm. I started IV amiodarone. That may not work over the long run but at least during the short term until we sort out her anticoagulation that may be the best option. #2. GI bleed: She has been on a combination of aspirin and Plavix, increasing her risk bleeding substantially. She probably should not be on aspirin, it does not have much of a role in atrial fibrillation or DVT, it does have rolling coronary artery disease but that seems stable at the moment. Plavix likewise does not have much utility in DVT for atrial fibrillation. I don't know that she needs either of these drugs over the long run, certainly not now. That can be addressed at a future time. #3. DVT: She does have a history of DVT, and probably should be on anticoagulation for that. That gives her an additional thrombotic risk in addition to her risk of stroke, another reason to reconsider anticoagulation at a future date. #4. Anticoagulation status: At the moment I would agree with no anticoagulation , over the long run I would consider restarting one of the newer agents, probably Eliquis, once it is felt safe to do so per GI. I would be hesitant however to use triple therapy with anticoagulation, aspirin and Plavix. We can reduce her GI bleed risk from around 9% down to about 3% by stopping aspirin and Plavix, with little change in her risk of stroke from atrial fibrillation and little change in her risk of DVT. Her risk of having a cardiac event is probably much lower than this. Thank you for allowing me to participate in her care.
[2016-12-08] MEDS ORDERED: NURSING VERBAL MED ORDER ONE (18:00)
[2016-12-08] MEDS ORDERED: AMIODARONE / D5W 200 ML IV SCH (18:00)
--- NOTE | 2016-12-08 19:45 | Cardiology Consultation ---
Cardiology Consultation Date of Consultation: Dec 08, 2016. Reason for Consultation: Cardiology consulted for recommendations re: anticoagulation Pt evaluation today including: conversation w/ patient, physical exam, chart review, lab review, review of inpatient medication list History of Present Illness 81 year old female presents to the ED with 1 episode of large volume hematemesis this morning [facility] and once more in the ED. Hemoglobin noted to be 8.6 from a recently measured 12.7, at which point transfusion of 6 packs of platelets and crystalloids were initiated. Patient was intubated for airway protection and emergent endoscopy was performed in the OR by [facility] gastroenterologis, Dr. Maier, who is follows the patient for chronic diarrhea. His report indicates that along with a hiatal hernia, 1 non-bleeding cratered ulcer with visible vessel and 2 recently bleeding angiectases were seen. All three sites were injected with epinephrine for hemostasis and subsequently coagulated. She was taken to ICU for IV pantoprazole and octreotide drips and close monitoring. Patient's history is significant for multiple myeloma, hypothyroidism, hyperparathyroidism, peptic ulcer disease, external hemorrhoids, chronic diarrhea. Her cardiac history is significant for CAD s/p CABG in 2006, history of DVT s/p IVC filter insertion in 2014 when anticoagulation caused GI bleeding, paroxysmal atrial fibrillation, HTN, dyslipidemia. Her previous anticoagulation during her popliteal DVT work up entailed Lovenox and Coumadin which was transitioned to Plavix due to ulcer treatment. She is known to [facility] chrome polisher , Dr. Wiley, with whom her last appointment was in 05/01/16. Currently in the ICU, the patient denies chest pain, palpiations, heart racing. She says she does not feel short of breath, although she is on oxygen via nasal cannula. She says she had some dizziness the night prior, and almost did not make it back to bed upon ambulation. She denies that similar feeling currently, although she admits she hasn't gotten out of bed to determine if the symptoms reappear. She denies any leg swelling or calf tenderness. The patient is complaining being cold and low back pain, which is new for her. She is also feeling discomfort due to her rudolph catheter in situ, but understanding why it is needed She denies fevers/chills, cough, abdominal pain, nausea or urge to vomit, numbness, tingling Family History Diabetes Hypertension Social History Smoking Status: Never Smoker History of Alcohol Use: No Review of Systems Constitutional: No chills, No fever Respiratory: No cough, No wheezing Cardiac: No chest pain, No edema, No palpitations Abdomen: + GI bleeding, No nausea, No pain, No vomiting Female : + problem reported Neurologic: No numbness/tingling Allergies Coded Allergies: Aspartame (Verified Allergy, Mild, 12/08/16) Shellfish (Verified Allergy, Mild, 12/08/16) Ciprofloxacin (Verified Allergy, Unknown, ., 12/08/16) Iodinated Diagnostic Agents (Verified Allergy, Unknown, Unknown, 12/08/16) Nitrofurantoin (Verified Allergy, Unknown, Unknown, 12/08/16) Quinolones (Verified Allergy, Unknown, CIPRO, 12/08/16) Sulfa Antibiotics (Verified Allergy, Unknown, Unknown, 12/08/16) Medications Current Inpatient Medications Medications (Trade) Dose Ordered Sig/Tiom Route Start Time Stop Time Status Last Admin Dose Admin Sodium Chloride (Nss 1000ml) 1,000 ml @ 45 mls/hr [id number] IV 12/08/16 11:33 01/07/17 11:32 12/08/16 15:03 45 MLS/HR Lorazepam (Ativan Inj) 0.5 mg Q4H PRN IV 12/08/16 11:45 01/07/17 11:44 Morphine Sulfate (MoRPHine SULFATE INJ) 2 mg Q2H PRN IV 12/08/16 11:45 12/22/16 11:44 12/08/16 15:03 2 MG Cholecalciferol (Vitamin D Tab) 1,000 inter.unit DAILY PO 12/09/16 09:00 01/08/17 08:59 Levothyroxine Sodium (Synthroid Tab) 75 mcg DAILYBB PO 12/09/16 06:00 01/08/17 05:59 Metoprolol Succinate (Toprol Xl Tab) 25 mg DAILY PO 12/09/16 09:00 01/08/17 08:59 Prednisone (PredniSONE TAB) 5 mg DAILY PO 12/09/16 09:00 01/08/17 08:59 Cinacalcet (Sensipar) 30 mg DAILY PO 12/09/16 09:00 01/08/17 08:59 Pravastatin Sodium (Pravachol Tab) 20 mg MoWeFr@0900 PO 12/09/16 09:00 01/08/17 08:59 Fentanyl Citrate (Fentanyl Inj) 50 mcg Q5M PRN IV 12/08/16 12:45 12/08/16 19:45 Hydromorphone HCl (Dilaudid Inj) 0.5 mg Q5M PRN IV 12/08/16 12:45 12/08/16 19:45 Meperidine HCl (Demerol Inj) 25 mg Q5M PRN IV 12/08/16 12:45 12/08/16 19:45 Ondansetron HCl (Zofran Inj) 4 mg ONE PRN IV 12/08/16 12:45 12/08/16 19:45 Labetalol HCl (Normodyne IV) 5 mg Q5M PRN IV 12/08/16 12:45 12/08/16 19:45 Ephedrine Sulfate (EpHEDrine SULFATE INJ) 5 mg Q5M PRN IV 12/08/16 12:45 12/08/16 19:45 Atropine Sulfate 0.5 mg 0.5 mg Q1M PRN IV 12/08/16 12:45 12/08/16 19:45 Pantoprazole Sodium 40 mg/ Dextrose 100 ml @ 20 mls/hr Q5H IV 12/08/16 13:30 01/07/17 13:29 12/08/16 14:29 20 MLS/HR Amiodarone HCL/ Dextrose 200 ml @ 33.3 mls/hr Q6H1M IV 12/08/16 18:00 12/09/16 00:00 12/08/16 18:26 33.3 MLS/HR Amiodarone HCL/ Dextrose (Nexterone / D5w) 200 ml @ 16.7 mls/hr [id number] IV 12/09/16 00:01 01/08/17 00:00 Physical Exam Vital Signs Past 12 Hours Date Time Temp Pulse Resp B/P Pulse Ox O2 Delivery O2 Flow Rate FiO2 12/08/16 18:00 122 22 128/63 98 Nasal Cannula 3.0 12/08/16 16:00 97 Nasal Cannula 4.0 12/08/16 16:00 36.7 112 18 123/60 100 Nasal Cannula 4.0 12/08/16 14:00 36.8 91 20 107/73 100 Nasal Cannula 4.0 12/08/16 13:10 36.8 90 20 106/56 98 Nasal Cannula 4.0 12/08/16 12:50 36.6 83 18 120/78 94 Mask 10 12/08/16 12:40 81 13 104/74 96 Mask 10 12/08/16 12:30 92 19 127/78 96 Mask 10 12/08/16 12:20 86 19 106/89 90 Mask 10 12/08/16 12:10 85 14 137/72 100 Mechanical Ventilator 40 12/08/16 12:00 72 14 116/56 100 Mechanical Ventilator 40 12/08/16 11:50 69 14 122/56 100 Mechanical Ventilator 40 12/08/16 11:40 68 14 121/50 100 Mechanical Ventilator 40 12/08/16 11:30 67 14 131/51 100 Mechanical Ventilator 40 12/08/16 11:20 77 14 121/53 100 Mechanical Ventilator 40 12/08/16 11:10 68 14 128/53 100 Mechanical Ventilator 40 12/08/16 11:00 68 14 112/51 100 Mechanical Ventilator 40 12/08/16 10:50 40 12/08/16 10:50 73 14 119/53 100 Mechanical Ventilator 40 12/08/16 10:40 36.4 67 14 173/80 100 Mechanical Ventilator 40 12/08/16 09:25 105 201/118 100 Mechanical Ventilator 12/08/16 09:19 110 217/104 100 Mechanical Ventilator 12/08/16 09:16 40 12/08/16 09:03 100 12/08/16 08:53 95 12/08/16 08:51 94 16 113/69 94 Room Air 12/08/16 08:36 55 12/08/16 08:24 70 18 112/54 100 Room Air 12/08/16 07:41 77 20 100/53 97 Room Air 12/08/16 07:29 37.0 78 20 114/57 97 Room Air 12/08/16 07:29 100 Room Air Head: normocephalic, atraumatic Neck: supple, trachea midline Lungs: Respiratory effort: good air movement Auscultation: breath sounds normal, CTA except as noted, no wheezing, no rales/crackles, pertinent finding Cardiovascular: Heart Auscultation: RRR, normal S1, normal S2, no murmurs Peripheral Pulses: Bruits: none appreciated Abdomen: Bowel Sounds: normal Inspection & Palpation: soft, non-distended, no tenderness, guarding & rebound Data Laboratory Results: Last 24 Hours Test 12/08/16 08:00 12/08/16 08:16 12/08/16 08:50 12/08/16 08:54 White Blood Count 21.14 K/uL 17.41 K/uL Red Blood Count 2.88 M/uL 2.70 M/uL Hemoglobin 9.0 g/dL 8.4 g/dL Hematocrit 26.6 % 25.3 % Mean Corpuscular Volume 92.4 fL 93.7 fL Mean Corpuscular Hemoglobin 31.3 pg 31.1 pg Mean Corpuscular Hemoglobin Concent 33.8 g/dl 33.2 g/dl Platelet Count 295 K/uL 239 K/uL Mean Platelet Volume 11.0 fL 10.8 fL Neutrophils (%) (Auto) 75.6 % 80.6 % Lymphocytes (%) (Auto) 15.0 % 10.4 % Monocytes (%) (Auto) 7.9 % 7.5 % Eosinophils (%) (Auto) 0.5 % 0.3 % Basophils (%) (Auto) 0.2 % 0.2 % Neutrophils # (Auto) 15.98 K/uL 14.04 K/uL Lymphocytes # (Auto) 3.18 K/uL 1.81 K/uL Monocytes # (Auto) 1.66 K/uL 1.30 K/uL Eosinophils # (Auto) 0.10 K/uL 0.05 K/uL Basophils # (Auto) 0.05 K/uL 0.04 K/uL RDW Standard Deviation 48.9 fL 49.6 fL RDW Coefficient of Variation 14.4 % 14.4 % Immature Granulocyte % (Auto) 0.8 % 1.0 % Immature Granulocyte # (Auto) 0.17 K/uL 0.17 K/uL Prothrombin Time 11.4 SECONDS Prothromb Time International Ratio 1.1 Activated Partial Thromboplast Time 20.8 SECONDS Partial Thromboplastin Ratio 0.8 Sodium Level 142 mmol/L Potassium Level 4.2 mmol/L Chloride Level 110 mmol/L Carbon Dioxide Level 19 mmol/L Anion Gap 13.0 mmol/L 17.0 mmol/L 20.0 mmol/L Blood Urea Nitrogen 65 mg/dl Creatinine 0.70 mg/dl Est Creatinine Clear Calc Drug Dose 50.4 ml/min Estimated GFR () 92.9 Estimated GFR (Non- 80.1 BUN/Creatinine Ratio 93.3 Random Glucose 121 mg/dl Calcium Level 8.4 mg/dl Total Bilirubin 0.2 mg/dl Direct Bilirubin < 0.1 mg/dl Aspartate Amino Transf (AST/SGOT) 9 U/L Alanine Aminotransferase (ALT/SGPT) 13 U/L Alkaline Phosphatase 29 U/L Total Creatine Kinase 18 U/L Creatine Kinase MB 1.0 ng/ml Creatine Kinase MB Ratio 5.6 Troponin I < 0.015 ng/ml Total Protein 5.1 gm/dl Albumin 2.9 gm/dl Lipase 90 U/L Bedside Hemoglobin 8.5 g/dl 8.2 g/dl Bedside Hematocrit 25 % 24 % Bedside Sodium 140 mEq/L 141 mEq/L Bedside Potassium 4.2 mEq/L 4.0 mEq/L Bedside Chloride 107 mEq/L 107 mEq/L Bedside Total CO2 21 mEq/l 18 mEq/l Bedside Blood Urea Nitrogen 66 mg/dl 67 mg/dl Bedside Creatinine 0.7 mg/dl 0.6 mg/dl Bedside Glucose (other) 121 mg/dl 128 mg/dl Bedside Ionized Calcium (Patrizia) 1.18 mmol/l 1.15 mmol/l Hypochromasia PRESENT Test 12/08/16 14:24 12/08/16 16:16 Hemoglobin 8.1 g/dL Hematocrit 24.2 % Bedside Glucose 80 mg/dl Imaging: EKG: Telemetry reviewed: Assessment & Plan 81 year old female presents to hospital with large volume hematemesis, with history of GI bleed and cardiac history significant for CAD s/p CABG x 3, DVT s /p IVC filter, atrial fibrillation IMPRESSION: GI bleed Patient has been on aspirin and Plavix, which are currently being held in view of her GI bleed. This is believed to be appropriate. It is likely that aspirin is contributing to stomach ulcers and/or stomach bleeding. It may be beneficial to hold this medication indefinitely. Based on past notes, it seems that patient was transitioned from Warfarin use to Plavix in early 2014 when she was experiencing melena and also being worked up for her DVT. In view of limited utility of an anti-platelet agent in decreasing the risk of clot in DVT or atrial fibrillation, further risk/benefit analysis will need to be performed to warrant its continued usage versus switching back to an anticoagulant agent. CAD Patient is likely benefiting from aspirin use in regards to CAD. However, the patient does not have any acute coronary symptoms currently, and as such, it is likely safe to hold aspirin for now given her bleeding risk. Paroxysmal Atrial Fibrillation Patient has been noted to be spontaneously reverting back and forth from normal sinus rhythm and atrial fibrillation, though the latter seems to predominate. Due to history of GI bleeding, patient has not been anticoagulated and has been on Plavix instead. Plavix is currently being held in view of bleeding risk. Though it would be appropriate to withhold anticoagulation during the healing and recovery from GI bleed, long term care administrator anticoagulation should be considered, especially given a [id number] score of 6 indicating a 9.7% risk of stroke annually. In the short term, IV amiodarone drip is recommended in attempts to maintain sinus rhythm, or at least reduce atrial fibrillation burden. History of DVT It is noted that patient has IVC filter in situ However, in view of current anti-platelets being held, and no new anticoagulants being started, patient may benefit from SCDs at rest, and early mobilization as tolerated to reduce DVT risk. PLAN: Continue to hold aspirin and Plavix. Holding these medications indefinitely will reduce her bleeding risk from 8.7% to 3.7%. Her stroke risk is elevated at 9.7% and as such, she would benefit from long term care administrator anticoagulation. A NOAC such as Eloquis has been shown to have lower risks of GI bleed in comparison to warfarin. This can be considered once GI thinks it would be safe to do so. In the interim, aiming to be minimize stroke risk d via an antiarrhythmic, amiodarone would be appropriate.
[2016-12-08 20:40] LABS: HEMATOCRIT 21.3 % (37-47)
[2016-12-09] VITALS (18 sets, daily range): BP systolic 125–155; BP diastolic 40–75; PULSE 73–91; TEMP 36.4–37.1; O2SAT 93–100
[2016-12-09] MEDS: AMIODARONE / D5W 200 ML IV SCH ×2 (00:27→14:37)
[2016-12-09] MEDS: PANTOprazole INJ 40 MG in DEXTROSE 5% 100ML IV SCH ×5 (00:56→21:43)
[2016-12-09] MEDS: LEVOTHYROXINE 75 MCG TAB PO SCH (04:35)
[2016-12-09] MEDS: MoRPHine SULFATE 2 MG/ML CARP IV PRN (05:51)
[2016-12-09 06:19] LABS: BASO % 0.3 %; BASO ABS # 0.04 K/uL (0-0.2); COMPLETE YES; EOS % 1.4 %; HEMATOCRIT 28.9 % (37-47); IG% 0.4 %; LYMPH % 15.7 %; LYMPH ABS # 2.11 K/uL (1.2-3.4); MEAN CELL VOLUME 90.6 fL (80-100); MEAN CORPUSCULAR HEMOGLOBIN 30.7 pg (25-34); MEAN CORPUSCULAR HGB CONC 33.9 g/dl (32-36); MEAN PLATELET VOLUME 11.3 fL (7.4-10.4); MONO % 8.3 %; NEUT % 73.9 %; PLATELET COUNT 185 K/uL (130-400); RED BLOOD COUNT 3.19 M/uL (4.2-5.4); WHITE BLOOD COUNT 13.44 K/uL (4.8-10.8)
[2016-12-09 06:56] LABS: BUN/CREATININE RATIO 58.3 (10-20); CALCIUM 7.2 mg/dl (8.5-10.1); CREATININE 0.66 mg/dl (0.60-1.20); POTASSIUM 3.3 mmol/L (3.5-5.1)
[2016-12-09 07:06] LABS: ALB/GLOB RATIO 1.3 (0.9-2); THYROID STIMULATING HORMONE 0.271 uIu/ml (0.300-4.500)
[2016-12-09] MEDS ORDERED: PANTOprazole INJ 80 MG in DEXTROSE 5% 100ML IV SCH (08:00)
[2016-12-09] MEDS ORDERED: D5W AND 1/2NSS 1,000 ML IV SCH (08:00)
--- NOTE | 2016-12-09 08:01 | Clinical Documentation Query ---
LIZETTE Sanders : CLINICAL DOCUMENTATION QUERY Patient is an 81 year old female admitted with GI bleed. Hemoglobin and hematocrit 12/04/16 was 12.7 g/dl and 37.6%. On admission, repeat values were 9.0 g/dl and 26.6% with further decline to 7.2 g/dl and 21.3%. She has been seen in consultation by GI and underwent EGD where a non-bleeding gastric ulcer and two recently bleeding angioectasias, all of which were injected with epinephrine. She is being maintained on Octreotide and Protonix infusions and monitored with serial hematology. She has been transfused 2 units of PRBC's and a 6 pack of platelets. In your clinical opinion is this patient being managed for: ( ) Acute blood loss anemia ( ) Other explanation of clinical findings (Please Explain) ( ) Unable to determine (Please Define) ( ) Need to Discuss ( ) Not Agree The medical record reflects the following clinical findings, treatment, and risk factors. Clinical Indicators: As above Treatment:She has been seen in consultation by GI and underwent EGD where a non-bleeding gastric ulcer and two recently bleeding angioectasias, all of which were injected with epinephrine. She is being maintained on Octreotide and Protonix infusions and monitored with serial hematology. She has been transfused 2 units of PRBC's and a 6 pack of platelets Risk Factors: Age, PUD, hemorrhoids, Plavix, ASA Please clarify and document your clinical opinion in the progress notes and discharge summary. Terms such as "probable", "suspected", "likely", "questionable", "possible", or "still to be ruled out" are acceptable. IF IN AGREEMENT, YOU MUST DOCUMENT ABOVE DIAGNOSTIC STATEMENT IN DAILY PROGRESS NOTES AND DISCHARGE SUMMARY. This document is not part of the patient's record. Thank You, Simone Moscoso, RN [phone]
--- NOTE | 2016-12-09 08:14 | Clinical Documentation Query ---
MS. SILVA RAMOS : CLINICAL DOCUMENTATION QUERY Patient is an 81 year old female admitted with GI bleed. Hemoglobin and hematocrit 12/04/16 was 12.7 g/dl and 37.6%. On admission, repeat values were 9.0 g/dl and 26.6% with further decline to 7.2 g/dl and 21.3%. She has been seen in consultation by GI and Patient Assistant services and underwent EGD where a non-bleeding gastric ulcer and two recently bleeding angioectasias, all of which were injected with epinephrine. She is being maintained on Octreotide and Protonix infusions and monitored with serial hematology in ICU. She has been transfused 2 units of PRBC's and a 6 pack of platelets. Please explicitly specify the acuity of the bleed as this directly impacts DRG assignment. In your clinical opinion is this patient being managed for: (X ) Acute blood loss anemia ( ) Other explanation of clinical findings (Please Explain) ( ) Unable to determine (Please Define) ( ) Need to Discuss ( ) Not Agree The medical record reflects the following clinical findings, treatment, and risk factors. Clinical Indicators: As above Treatment:She has been seen in consultation by GI and underwent EGD where a non-bleeding gastric ulcer and two recently bleeding angioectasias, all of which were injected with epinephrine. She is being maintained on Octreotide and Protonix infusions and monitored with serial hematology. She has been transfused 2 units of PRBC's and a 6 pack of platelets Risk Factors: Age, PUD, hemorrhoids, Plavix, ASA Please clarify and document your clinical opinion in the progress notes and discharge summary. Terms such as "probable", "suspected", "likely", "questionable", "possible", or "still to be ruled out" are acceptable. IF IN AGREEMENT, YOU MUST DOCUMENT ABOVE DIAGNOSTIC STATEMENT IN DAILY PROGRESS NOTES AND DISCHARGE SUMMARY. This document is not part of the patient's record. Thank You, Simone Moscoso, JAIME [phone]
[2016-12-09] MEDS ORDERED: POTASSIUM CHLR 10 MEQ / WTR 10 MEQ in PREMIXED WATER 100 ML IV SCH (08:30)
--- NOTE | 2016-12-09 08:43 | Critical Care Progress Note ---
Critical Care Progress Note Date of Service Dec 09, 2016. Attending Dr. Palma Subjective This patient is an 81-year-old female who had an emergent EGD yesterday for hematemesis. This admission she has received 2 units of packed red blood cells and a 6 pack of platelets. Her hemoglobin responded appropriately and improved 2.6 units to 9.8 today. Her octreotide was discontinued last evening and she was started on amiodarone drip for A. fib with RVR. Amiodarone is running at 16.7 mL/h this morning and her heart rate is in the 80s. She remained stable at this time. She is off supplemental oxygen this morning and is resting comfortably in bed. She continues to complain of 4 out of 10 back pain; despite recent pain medication. She complains of a dry mouth and states that her sore throat is improving. She states she had several loose bowel movements since last evening. She also states that the Jewell is more comfortable today; is not giving her an urge sensation. She denies fever and malaise. She denies lightheadedness or dizziness. She denies chest pain/pressure or palpitations; despite being in a irregularly irregular pattern. She denies shortness of breath or cough, nausea, abdominal pain. Objective Vital Signs - as noted Laboratory Data - as noted Physical Exam: General - NAD, sleeping comfortably in bed ENT - Mucosa dry, no lesions or candidiasis Neck - Supple, trachea midline, no masses or lymphadenopathy, no JVD or bruits Lungs - No paradoxical chest wall movement, clear to auscultation bilaterally, no wheezes, rales, or rhonchi Heart - irregularly irregular, No murmur, rubs, clicks, or gallops appreciated Abdomen -BS present, no bruits noted, tympanic to percussion, soft, mild tenderness, nondistended, no organomegaly Extremities - No edema, pedal pulses intact Neuro - A&OX3 Strength extremities equal and appropriate bilaterally Reflexes: Patellar, and plantar normal and equal Cerebellum: Finger to nose appropriate CN:PERRL, EOMI, no facial asymmetry, uvula/tongue midline Assessment & Plan (1) Acute GI bleeding Emergent EGD 12/[address] Ackerman Case findings as noted above * No acute bleeding seen, multiple recent sites noted History of peptic ulcer disease, previous GI bleed, and chronic Plavix use Known Bleeding hemorrhoid Transfused 2u of PRBCs overnight and 6pk of plts during EGD prev day H&H responded appropriately; 9.8 today Recommendations per GI * Protonix Infusion: 8 mg/hour IV for 3 days * Octreotide drip d/c'd last evening Continue NPO with sips and meds Maintain at minimum 2: 18g PIVs Follow Clinically (2) Anemia GI Bleed as noted during emergent EGD today Transfused 2u of PRBCs overnight and 6pk of plts during EGD prev day H&H responded appropriately; 9.8 today Repeat H&H q6hrs Keep all combined fluids to a rate of approx 75ml/hr (3) Electrolyte abnormality Hypokalemia 10meq KCl in Water x2 Recheck K this afternoon Hypernatremia Change to 1/2NS Repeat lab this afternoon (4) Coronary artery disease CAD s/p CABG x3 Known paroxysmal A fib; currently rate controlled Troponin elevated yesterday; 0.122 EKG prn chest pain Chronic Plavix use, Hold currently in setting of GI Bleed Hold ASA Repeat Troponin x1 today Continue Home medication * Pravastatin 20mg PO MWF (5) Atrial fibrillation with RVR Paroxysmal A. Fib last evening. Seen by Dr. Olvera and Amio drip started Rate controlled this morning, Rate in the 80's Plan to d/c Plavix due to recurrent GI bleeds and use newer agent such as Eliquis, plan for rhythm control in the short term with Amio per cardiology Continue to monitor (6) History of hypertension Hx of HTN in prehospital setting SBP currently 130's Continue Home medication as BP tolerates * Metoprolol Succinate 25mg PO qDaily * Verapamil Hcl 240mg PO HS * GOAL MAP: >65 Monitor on telemetry (7) Hypothyroid Hx of Hypothyroidism, Use of Levothyroxine at home TSH: 0.271 Obtain Free T4 with tomorrow's labs Continue Synthroid 75mcg PO qDaily (8) Hyperparathyroidism Continue Home medications * Cinacalcet 30mg PO daily * Vitamin D 1,000 IU PO qDaily (9) Multiple myeloma Pt followed by Dr. Rashid with [facility] Receives Zometa monthly, last dose 10/07 No current plan for chemotherapy Stable plasma dyscrasia, stage II. Followed by Dr. Balaban in-patient I.D: * Afebrile, WBCs trending down 13.44 * Rocephin 1gm IV prophylaxis with EGD Endo: * BSGs: 114-119 * No known DM dx * BSG POC per nursing protocol DVT Prophylaxis: No anticoagulation in the setting of a GI Bleed, SCD's in place GI Prophylaxis: Protonix infusion currently in place. HOB at 30* OOB qshift as tolerated PT/OT ordered Access: * [address] CCT: 0 minutes; Level 3 inpt billing; Not including any billable procedures. Pt is ready to be transferred from ICU per Dr. Simone Palma. Thank you for including us in the care of this patient. Please review Dr. Simone Palma addendum for further recommendations. Consults & Procedures Consultants: GI: Dr. Maier Cardiology: Dr. Poole Procedures: Intubated/Extubated: 12/08/16 EGD 12/08 2u PRBCs & 6pk Plts: 12/08 Data Medications: Current Inpatient Medications Medications (Trade) Dose Ordered Sig/Timo Route Start Time Stop Time Status Last Admin Dose Admin Sodium Chloride (Nss 1000ml) 1,000 ml @ 45 mls/hr [id number] IV 12/08/16 11:33 01/07/17 11:32 12/08/16 15:03 45 MLS/HR Lorazepam (Ativan Inj) 0.5 mg Q4H PRN IV 12/08/16 11:45 01/07/17 11:44 Morphine Sulfate (MoRPHine SULFATE INJ) 2 mg Q2H PRN IV 12/08/16 11:45 12/22/16 11:44 12/09/16 05:51 2 MG Cholecalciferol (Vitamin D Tab) 1,000 inter.unit DAILY PO 12/09/16 09:00 01/08/17 08:59 Levothyroxine Sodium (Synthroid Tab) 75 mcg DAILYBB PO 12/09/16 06:00 01/08/17 05:59 Metoprolol Succinate (Toprol Xl Tab) 25 mg DAILY PO 12/09/16 09:00 01/08/17 08:59 Prednisone (PredniSONE TAB) 5 mg DAILY PO 12/09/16 09:00 01/08/17 08:59 Cinacalcet (Sensipar) 30 mg DAILY PO 12/09/16 09:00 01/08/17 08:59 Pravastatin Sodium 20 mg 20 mg MoWeFr@0900 PO 12/09/16 09:00 01/08/17 08:59 Pantoprazole Sodium 40 mg/ Dextrose 100 ml @ 20 mls/hr Q5H IV 12/08/16 13:30 01/07/17 13:29 12/09/16 05:37 20 MLS/HR Amiodarone HCL/ Dextrose (Nexterone / D5w) 200 ml @ 16.7 mls/hr [id number] IV 12/09/16 00:01 01/08/17 00:00 12/09/16 00:27 16.7 MLS/HR I & O: 24-Hour Column 12/09/16 08:00 Intake Total 3242 ml Output Total 1825 ml Balance 1417 ml Vital Signs: Date Time Temp Pulse Resp B/P Pulse Ox O2 Delivery O2 Flow Rate FiO2 12/09/16 06:00 82 13 134/57 95 Room Air 12/09/16 04:00 100 Nasal Cannula 2.0 12/09/16 04:00 37.0 80 18 131/50 99 Room Air 12/09/16 03:45 36.8 79 12 138/60 100 12/09/16 03:15 36.9 78 21 131/53 98 12/09/16 03:00 37.0 76 16 133/48 97 12/09/16 02:52 37.0 76 14 129/53 93 12/09/16 02:00 84 13 125/40 100 12/09/16 01:33 36.9 80 13 138/57 100 12/09/16 01:05 37.0 81 15 131/55 100 2.0 12/09/16 01:01 37.0 82 15 131/55 99 12/09/16 00:01 36.9 86 14 137/54 97 Nasal Cannula 2.0 12/08/16 23:59 100 Nasal Cannula 2.0 12/08/16 22:00 88 16 122/53 100 Nasal Cannula 2.0 12/08/16 20:00 100 Nasal Cannula 2.0 12/08/16 20:00 37.4 83 16 125/51 100 Nasal Cannula 2.0 12/08/16 18:00 122 22 128/63 98 Nasal Cannula 3.0 12/08/16 16:00 97 Nasal Cannula 4.0 12/08/16 16:00 36.7 112 18 123/60 100 Nasal Cannula 4.0 12/08/16 14:00 36.8 91 20 107/73 100 Nasal Cannula 4.0 12/08/16 13:10 36.8 90 20 106/56 98 Nasal Cannula 4.0 12/08/16 12:50 36.6 83 18 120/78 94 Mask 10 12/08/16 12:40 81 13 104/74 96 Mask 10 12/08/16 12:30 92 19 127/78 96 Mask 10 12/08/16 12:20 86 19 106/89 90 Mask 10 12/08/16 12:10 85 14 137/72 100 Mechanical Ventilator 40 12/08/16 12:00 72 14 116/56 100 Mechanical Ventilator 40 12/08/16 11:50 69 14 122/56 100 Mechanical Ventilator 40 12/08/16 11:40 68 14 121/50 100 Mechanical Ventilator 40 12/08/16 11:30 67 14 131/51 100 Mechanical Ventilator 40 12/08/16 11:20 77 14 121/53 100 Mechanical Ventilator 40 12/08/16 11:10 68 14 128/53 100 Mechanical Ventilator 40 12/08/16 11:00 68 14 112/51 100 Mechanical Ventilator 40 12/08/16 10:50 40 12/08/16 10:50 73 14 119/53 100 Mechanical Ventilator 40 12/08/16 10:40 36.4 67 14 173/80 100 Mechanical Ventilator 40 12/08/16 09:25 105 201/118 100 Mechanical Ventilator 12/08/16 09:19 110 217/104 100 Mechanical Ventilator 12/08/16 09:16 40 12/08/16 09:03 100 12/08/16 08:53 95 12/08/16 08:51 94 16 113/69 94 Room Air 12/08/16 08:36 55 12/08/16 08:24 70 18 112/54 100 Room Air 12/08/16 07:41 77 20 100/53 97 Room Air Laboratory Results: Last 24 Hours Test 12/08/16 08:00 12/08/16 08:16 12/08/16 08:50 12/08/16 08:54 White Blood Count 21.14 K/uL 17.41 K/uL Red Blood Count 2.88 M/uL 2.70 M/uL Hemoglobin 9.0 g/dL 8.4 g/dL Hematocrit 26.6 % 25.3 % Mean Corpuscular Volume 92.4 fL 93.7 fL Mean Corpuscular Hemoglobin 31.3 pg 31.1 pg Mean Corpuscular Hemoglobin Concent 33.8 g/dl 33.2 g/dl Platelet Count 295 K/uL 239 K/uL Mean Platelet Volume 11.0 fL 10.8 fL Neutrophils (%) (Auto) 75.6 % 80.6 % Lymphocytes (%) (Auto) 15.0 % 10.4 % Monocytes (%) (Auto) 7.9 % 7.5 % Eosinophils (%) (Auto) 0.5 % 0.3 % Basophils (%) (Auto) 0.2 % 0.2 % Neutrophils # (Auto) 15.98 K/uL 14.04 K/uL Lymphocytes # (Auto) 3.18 K/uL 1.81 K/uL Monocytes # (Auto) 1.66 K/uL 1.30 K/uL Eosinophils # (Auto) 0.10 K/uL 0.05 K/uL Basophils # (Auto) 0.05 K/uL 0.04 K/uL RDW Standard Deviation 48.9 fL 49.6 fL RDW Coefficient of Variation 14.4 % 14.4 % Immature Granulocyte % (Auto) 0.8 % 1.0 % Immature Granulocyte # (Auto) 0.17 K/uL 0.17 K/uL Prothrombin Time 11.4 SECONDS Prothromb Time International Ratio 1.1 Activated Partial Thromboplast Time 20.8 SECONDS Partial Thromboplastin Ratio 0.8 Sodium Level 142 mmol/L Potassium Level 4.2 mmol/L Chloride Level 110 mmol/L Carbon Dioxide Level 19 mmol/L Anion Gap 13.0 mmol/L 17.0 mmol/L 20.0 mmol/L Blood Urea Nitrogen 65 mg/dl Creatinine 0.70 mg/dl Est Creatinine Clear Calc Drug Dose 50.4 ml/min Estimated GFR () 92.9 Estimated GFR (Non- 80.1 BUN/Creatinine Ratio 93.3 Random Glucose 121 mg/dl Calcium Level 8.4 mg/dl Total Bilirubin 0.2 mg/dl Direct Bilirubin < 0.1 mg/dl Aspartate Amino Transf (AST/SGOT) 9 U/L Alanine Aminotransferase (ALT/SGPT) 13 U/L Alkaline Phosphatase 29 U/L Total Creatine Kinase 18 U/L Creatine Kinase MB 1.0 ng/ml Creatine Kinase MB Ratio 5.6 Troponin I < 0.015 ng/ml Total Protein 5.1 gm/dl Albumin 2.9 gm/dl Lipase 90 U/L Bedside Hemoglobin 8.5 g/dl 8.2 g/dl Bedside Hematocrit 25 % 24 % Bedside Sodium 140 mEq/L 141 mEq/L Bedside Potassium 4.2 mEq/L 4.0 mEq/L Bedside Chloride 107 mEq/L 107 mEq/L Bedside Total CO2 21 mEq/l 18 mEq/l Bedside Blood Urea Nitrogen 66 mg/dl 67 mg/dl Bedside Creatinine 0.7 mg/dl 0.6 mg/dl Bedside Glucose (other) 121 mg/dl 128 mg/dl Bedside Ionized Calcium (Patrizia) 1.18 mmol/l 1.15 mmol/l Hypochromasia PRESENT Test 12/08/16 14:24 12/08/16 16:16 12/08/16 20:20 12/08/16 20:26 Hemoglobin 8.1 g/dL 7.2 g/dL Hematocrit 24.2 % 21.3 % Bedside Glucose 80 mg/dl 119 mg/dl Test 12/08/16 22:10 12/09/16 05:22 Troponin I 0.122 ng/ml White Blood Count 13.44 K/uL Red Blood Count 3.19 M/uL Hemoglobin 9.8 g/dL Hematocrit 28.9 % Mean Corpuscular Volume 90.6 fL Mean Corpuscular Hemoglobin 30.7 pg Mean Corpuscular Hemoglobin Concent 33.9 g/dl Platelet Count 185 K/uL Mean Platelet Volume 11.3 fL Neutrophils (%) (Auto) 73.9 % Lymphocytes (%) (Auto) 15.7 % Monocytes (%) (Auto) 8.3 % Eosinophils (%) (Auto) 1.4 % Basophils (%) (Auto) 0.3 % Neutrophils # (Auto) 9.93 K/uL Lymphocytes # (Auto) 2.11 K/uL Monocytes # (Auto) 1.12 K/uL Eosinophils # (Auto) 0.19 K/uL Basophils # (Auto) 0.04 K/uL RDW Standard Deviation 48.3 fL RDW Coefficient of Variation 14.5 % Immature Granulocyte % (Auto) 0.4 % Immature Granulocyte # (Auto) 0.05 K/uL Sodium Level 146 mmol/L Potassium Level 3.3 mmol/L Chloride Level 114 mmol/L Carbon Dioxide Level 22 mmol/L Anion Gap 10.0 mmol/L Blood Urea Nitrogen 39 mg/dl Creatinine 0.66 mg/dl Est Creatinine Clear Calc Drug Dose 54.6 ml/min Estimated GFR () 94.7 Estimated GFR (Non- 81.7 BUN/Creatinine Ratio 58.3 Random Glucose 114 mg/dl Calcium Level 7.2 mg/dl Total Bilirubin 0.4 mg/dl Aspartate Amino Transf (AST/SGOT) 14 U/L Alanine Aminotransferase (ALT/SGPT) 14 U/L Alkaline Phosphatase 32 U/L Total Protein 4.9 gm/dl Albumin 2.8 gm/dl Globulin 2.1 gm/dl Albumin/Globulin Ratio 1.3 Thyroid Stimulating Hormone (TSH) 0.271 uIu/ml
[2016-12-09] MEDS: POTASSIUM CHLR 10 MEQ / WTR 10 MEQ in PREMIXED WATER 100 ML IV SCH ×2 (08:51→10:33)
[2016-12-09] MEDS: CINACALCET 30 MG TAB PO SCH (08:52)
[2016-12-09] MEDS: PRAVASTATIN SOD 20 MG TAB PO SCH (08:52)
[2016-12-09] MEDS: CHOLECALCIFEROL 1000 INTER.UNIT TAB PO SCH (08:52)
[2016-12-09] MEDS: METOPROLOL SUCC 25MG EXT REL TAB PO SCH (08:52)
--- NOTE | 2016-12-09 09:46 | Gastroenterology Progress Note ---
Progress Note Date of Service: Dec 09, 2016 Subjective Pt evaluation today including: conversation w/ patient, physical exam, lab review, review of studies, review of inpatient medication list Patient reports some fatigue today and hoarseness s/p extubation. Findings of bleeding 2 AVMs and gastric ulcer status post hemostasis during EGD by Dr. Maier yesterday. She received 2 units of blood last evening and continues Protonix ggt. Per nursing, patient passed two bowel movements overnight that were not bloody or melanotic in appearance. Patient denies any abdominal pain, nausea or vomiting or other GI complaints. Review of Systems Constitutional: + see HPI Respiratory: No shortness of breath Cardiac: No chest pain Abdomen: + see HPI Neuro: + weakness Medications Current Inpatient Medications Medications (Trade) Dose Ordered Sig/Timo Route Start Time Stop Time Status Last Admin Dose Admin Lorazepam (Ativan Inj) 0.5 mg Q4H PRN IV 12/08/16 11:45 01/07/17 11:44 Morphine Sulfate (MoRPHine SULFATE INJ) 2 mg Q2H PRN IV 12/08/16 11:45 12/22/16 11:44 12/09/16 05:51 2 MG Cholecalciferol (Vitamin D Tab) 1,000 inter.unit DAILY PO 12/09/16 09:00 01/08/17 08:59 12/09/16 08:52 1,000 INTER.UNIT Levothyroxine Sodium (Synthroid Tab) 75 mcg DAILYBB PO 12/09/16 06:00 01/08/17 05:59 Metoprolol Succinate (Toprol Xl Tab) 25 mg DAILY PO 12/09/16 09:00 01/08/17 08:59 12/09/16 08:52 25 MG Prednisone (PredniSONE TAB) 5 mg DAILY PO 12/09/16 09:00 01/08/17 08:59 12/09/16 08:52 5 MG Cinacalcet (Sensipar) 30 mg DAILY PO 12/09/16 09:00 01/08/17 08:59 12/09/16 08:52 30 MG Pravastatin Sodium 20 mg 20 mg MoWeFr@0900 PO 12/09/16 09:00 01/08/17 08:59 12/09/16 08:52 20 MG Pantoprazole Sodium 40 mg/ Dextrose 100 ml @ 20 mls/hr Q5H IV 12/08/16 13:30 01/07/17 13:29 12/09/16 05:37 20 MLS/HR Amiodarone HCL/ Dextrose 200 ml @ 16.7 mls/hr [id number] IV 12/09/16 00:01 01/08/17 00:00 12/09/16 00:27 16.7 MLS/HR Potassium Chloride 10 meq/ Prmx 100 ml @ 100 mls/hr Q1H IV 12/09/16 08:30 12/09/16 10:29 12/09/16 08:51 100 MLS/HR Dextrose/Sodium Chloride (D5W And 1/2nss) 1,000 ml @ 40 mls/hr Q24H IV 12/09/16 08:00 01/08/17 07:59 12/09/16 08:51 40 MLS/HR Objective Vital Signs Date Time Temp Pulse Resp B/P Pulse Ox O2 Delivery O2 Flow Rate FiO2 12/09/16 06:00 82 13 134/57 95 Room Air 12/09/16 04:00 100 Nasal Cannula 2.0 12/09/16 04:00 37.0 80 18 131/50 99 Room Air 12/09/16 03:45 36.8 79 12 138/60 100 12/09/16 03:15 36.9 78 21 131/53 98 12/09/16 03:00 37.0 76 16 133/48 97 12/09/16 02:52 37.0 76 14 129/53 93 12/09/16 02:00 84 13 125/40 100 12/09/16 01:33 36.9 80 13 138/57 100 12/09/16 01:05 37.0 81 15 131/55 100 2.0 12/09/16 01:01 37.0 82 15 131/55 99 12/09/16 00:01 36.9 86 14 137/54 97 Nasal Cannula 2.0 12/08/16 23:59 100 Nasal Cannula 2.0 12/08/16 22:00 88 16 122/53 100 Nasal Cannula 2.0 12/08/16 20:00 100 Nasal Cannula 2.0 12/08/16 20:00 37.4 83 16 125/51 100 Nasal Cannula 2.0 12/08/16 18:00 122 22 128/63 98 Nasal Cannula 3.0 12/08/16 16:00 97 Nasal Cannula 4.0 12/08/16 16:00 36.7 112 18 123/60 100 Nasal Cannula 4.0 12/08/16 14:00 36.8 91 20 107/73 100 Nasal Cannula 4.0 12/08/16 13:10 36.8 90 20 106/56 98 Nasal Cannula 4.0 12/08/16 12:50 36.6 83 18 120/78 94 Mask 10 12/08/16 12:40 81 13 104/74 96 Mask 10 12/08/16 12:30 92 19 127/78 96 Mask 10 12/08/16 12:20 86 19 106/89 90 Mask 10 12/08/16 12:10 85 14 137/72 100 Mechanical Ventilator 40 12/08/16 12:00 72 14 116/56 100 Mechanical Ventilator 40 12/08/16 11:50 69 14 122/56 100 Mechanical Ventilator 40 12/08/16 11:40 68 14 121/50 100 Mechanical Ventilator 40 12/08/16 11:30 67 14 131/51 100 Mechanical Ventilator 40 12/08/16 11:20 77 14 121/53 100 Mechanical Ventilator 40 12/08/16 11:10 68 14 128/53 100 Mechanical Ventilator 40 12/08/16 11:00 68 14 112/51 100 Mechanical Ventilator 40 12/08/16 10:50 40 12/08/16 10:50 73 14 119/53 100 Mechanical Ventilator 40 12/08/16 10:40 36.4 67 14 173/80 100 Mechanical Ventilator 40 Physical Exam General Appearance: no apparent distress Eyes: EOMI ENT: hearing grossly normal Respiratory/Chest: lungs clear, normal breath sounds, no respiratory distress Cardiovascular: regular rate, rhythm, no gallop, no murmur Abdomen: normal bowel sounds, non tender, soft Neurologic/Psych: alert, normal mood/affect, oriented x 3 Laboratory Results Last 24 Hours Test 12/08/16 14:24 12/08/16 16:16 12/08/16 20:20 12/08/16 20:26 Hemoglobin 8.1 g/dL 7.2 g/dL Hematocrit 24.2 % 21.3 % Bedside Glucose 80 mg/dl 119 mg/dl Test 12/08/16 22:10 12/09/16 05:22 12/09/16 08:00 Troponin I 0.122 ng/ml 0.102 ng/ml White Blood Count 13.44 K/uL Red Blood Count 3.19 M/uL Hemoglobin 9.8 g/dL Hematocrit 28.9 % Mean Corpuscular Volume 90.6 fL Mean Corpuscular Hemoglobin 30.7 pg Mean Corpuscular Hemoglobin Concent 33.9 g/dl Platelet Count 185 K/uL Mean Platelet Volume 11.3 fL Neutrophils (%) (Auto) 73.9 % Lymphocytes (%) (Auto) 15.7 % Monocytes (%) (Auto) 8.3 % Eosinophils (%) (Auto) 1.4 % Basophils (%) (Auto) 0.3 % Neutrophils # (Auto) 9.93 K/uL Lymphocytes # (Auto) 2.11 K/uL Monocytes # (Auto) 1.12 K/uL Eosinophils # (Auto) 0.19 K/uL Basophils # (Auto) 0.04 K/uL RDW Standard Deviation 48.3 fL RDW Coefficient of Variation 14.5 % Immature Granulocyte % (Auto) 0.4 % Immature Granulocyte # (Auto) 0.05 K/uL Sodium Level 146 mmol/L Potassium Level 3.3 mmol/L Chloride Level 114 mmol/L Carbon Dioxide Level 22 mmol/L Anion Gap 10.0 mmol/L Blood Urea Nitrogen 39 mg/dl Creatinine 0.66 mg/dl Est Creatinine Clear Calc Drug Dose 54.6 ml/min Estimated GFR () 94.7 Estimated GFR (Non- 81.7 BUN/Creatinine Ratio 58.3 Random Glucose 114 mg/dl Calcium Level 7.2 mg/dl Total Bilirubin 0.4 mg/dl Aspartate Amino Transf (AST/SGOT) 14 U/L Alanine Aminotransferase (ALT/SGPT) 14 U/L Alkaline Phosphatase 32 U/L Total Protein 4.9 gm/dl Albumin 2.8 gm/dl Globulin 2.1 gm/dl Albumin/Globulin Ratio 1.3 Thyroid Stimulating Hormone (TSH) 0.271 uIu/ml Assessment and Plan Patient is a 81 year old female with a history of multiple myeloma and PUD presenting with weakness, hematemesis, and acute blood loss anemia with findings of bleeding AVM and gastric ulcer status post hemostasis during endoscopy yesterday. 1. Can advance diet to clear liquids today. 2. Continue Protonix ggt at 8 mg/hr for a total of 72 hours. 3. Supportive care via primary team. Agree with OSCAR Simpson as above Abd: Soft, NT, ND, +BS Continue Protonix gtt for 72 hours Advance diet as tolerated
--- NOTE | 2016-12-09 10:42 | Hospitalist Progress Note ---
Hospitalist Progress Note Date of Service Dec 09, 2016. Subjective Pt evaluation today including: conversation w/ patient, physical exam, chart review, lab review, review of studies, review of inpatient medication list Pain: None PO Intake: NPO, will start clears today Voiding: rudolph catheter in place The patient was seen and examined this morning. Pt reports not remembering much from yesterday. She reports her IV is burning ( KCl- infusing). Complains of fatigue today. Pt reports she is passing gas. Denies abd pain,nausea or vomiting. Per nursing the pt had a bowel movement last night which was formed, no BRBPR and not dark or tarry. Pt is currently on amiodarone gtt since being in afib last night per cardiology. She also recieved 2 U PRBCs overnight for hgb drop to 7.2. Constitutional: + fatigue, No chills, No fever, No sweats Eyes: No diplopia ENT: No nasal symptoms, No sore throat, No trouble swallowing Respiratory: No cough, No shortness of breath, No sputum, No wheezing Cardiovascular: No chest pain, No palpitations Abdomen: No constipation, No diarrhea, No nausea, No pain, No vomiting Musculoskeletal: No joint pain Skin: No itch, No rash Objective Vital Signs Date Time Temp Pulse Resp B/P Pulse Ox O2 Delivery O2 Flow Rate FiO2 12/09/16 06:00 82 13 134/57 95 Room Air 12/09/16 04:00 100 Nasal Cannula 2.0 12/09/16 04:00 37.0 80 18 131/50 99 Room Air 12/09/16 03:45 36.8 79 12 138/60 100 12/09/16 03:15 36.9 78 21 131/53 98 12/09/16 03:00 37.0 76 16 133/48 97 12/09/16 02:52 37.0 76 14 129/53 93 12/09/16 02:00 84 13 125/40 100 12/09/16 01:33 36.9 80 13 138/57 100 12/09/16 01:05 37.0 81 15 131/55 100 2.0 12/09/16 01:01 37.0 82 15 131/55 99 12/09/16 00:01 36.9 86 14 137/54 97 Nasal Cannula 2.0 12/08/16 23:59 100 Nasal Cannula 2.0 12/08/16 22:00 88 16 122/53 100 Nasal Cannula 2.0 12/08/16 20:00 100 Nasal Cannula 2.0 12/08/16 20:00 37.4 83 16 125/51 100 Nasal Cannula 2.0 12/08/16 18:00 122 22 128/63 98 Nasal Cannula 3.0 12/08/16 16:00 97 Nasal Cannula 4.0 12/08/16 16:00 36.7 112 18 123/60 100 Nasal Cannula 4.0 12/08/16 14:00 36.8 91 20 107/73 100 Nasal Cannula 4.0 12/08/16 13:10 36.8 90 20 106/56 98 Nasal Cannula 4.0 12/08/16 12:50 36.6 83 18 120/78 94 Mask 10 12/08/16 12:40 81 13 104/74 96 Mask 10 12/08/16 12:30 92 19 127/78 96 Mask 10 12/08/16 12:20 86 19 106/89 90 Mask 10 12/08/16 12:10 85 14 137/72 100 Mechanical Ventilator 40 12/08/16 12:00 72 14 116/56 100 Mechanical Ventilator 40 12/08/16 11:50 69 14 122/56 100 Mechanical Ventilator 40 12/08/16 11:40 68 14 121/50 100 Mechanical Ventilator 40 12/08/16 11:30 67 14 131/51 100 Mechanical Ventilator 40 12/08/16 11:20 77 14 121/53 100 Mechanical Ventilator 40 12/08/16 11:10 68 14 128/53 100 Mechanical Ventilator 40 12/08/16 11:00 68 14 112/51 100 Mechanical Ventilator 40 12/08/16 10:50 40 12/08/16 10:50 73 14 119/53 100 Mechanical Ventilator 40 12/08/16 10:40 36.4 67 14 173/80 100 Mechanical Ventilator 40 12/08/16 09:25 105 201/118 100 Mechanical Ventilator 12/08/16 09:19 110 217/104 100 Mechanical Ventilator 12/08/16 09:16 40 12/08/16 09:03 100 12/08/16 08:53 95 12/08/16 08:51 94 16 113/69 94 Room Air 12/08/16 08:36 55 1/17/17 08:24 70 18 112/54 100 Room Air Physical Exam General Appearance: WD/WN, no apparent distress Eyes: PERRL, EOMI ENT: hearing grossly normal, pharynx normal, + pertinent finding (MMM) Neck: no JVD Respiratory/Chest: lungs clear, no respiratory distress, no accessory muscle use Cardiovascular: no murmur, + irregularly irregular (rate controlled, amiodarone gtt infusing at bedside. ) Abdomen: normal bowel sounds, non tender, soft, no organomegaly Extremities: non-tender, no pedal edema, no calf tenderness Neurologic/Psychiatric: alert, oriented x 3 Skin: normal color, warm/dry Laboratory Results Last 24 Hours Test 12/08/16 08:16 12/08/16 08:50 12/08/16 08:54 12/08/16 14:24 Bedside Hemoglobin 8.5 g/dl 8.2 g/dl Bedside Hematocrit 25 % 24 % Bedside Sodium 140 mEq/L 141 mEq/L Bedside Potassium 4.2 mEq/L 4.0 mEq/L Bedside Chloride 107 mEq/L 107 mEq/L Bedside Total CO2 21 mEq/l 18 mEq/l Anion Gap 17.0 mmol/L 20.0 mmol/L Bedside Blood Urea Nitrogen 66 mg/dl 67 mg/dl Bedside Creatinine 0.7 mg/dl 0.6 mg/dl Bedside Glucose (other) 121 mg/dl 128 mg/dl Bedside Ionized Calcium (Patrizia) 1.18 mmol/l 1.15 mmol/l White Blood Count 17.41 K/uL Red Blood Count 2.70 M/uL Hemoglobin 8.4 g/dL 8.1 g/dL Hematocrit 25.3 % 24.2 % Mean Corpuscular Volume 93.7 fL Mean Corpuscular Hemoglobin 31.1 pg Mean Corpuscular Hemoglobin Concent 33.2 g/dl Platelet Count 239 K/uL Mean Platelet Volume 10.8 fL Neutrophils (%) (Auto) 80.6 % Lymphocytes (%) (Auto) 10.4 % Monocytes (%) (Auto) 7.5 % Eosinophils (%) (Auto) 0.3 % Basophils (%) (Auto) 0.2 % Neutrophils # (Auto) 14.04 K/uL Lymphocytes # (Auto) 1.81 K/uL Monocytes # (Auto) 1.30 K/uL Eosinophils # (Auto) 0.05 K/uL Basophils # (Auto) 0.04 K/uL RDW Standard Deviation 49.6 fL RDW Coefficient of Variation 14.4 % Immature Granulocyte % (Auto) 1.0 % Immature Granulocyte # (Auto) 0.17 K/uL Hypochromasia PRESENT Test 12/08/16 16:16 12/08/16 20:20 12/08/16 20:26 12/08/16 22:10 Bedside Glucose 80 mg/dl 119 mg/dl Hemoglobin 7.2 g/dL Hematocrit 21.3 % Troponin I 0.122 ng/ml Test 12/09/16 05:22 12/09/16 08:00 White Blood Count 13.44 K/uL Red Blood Count 3.19 M/uL Hemoglobin 9.8 g/dL Hematocrit 28.9 % Mean Corpuscular Volume 90.6 fL Mean Corpuscular Hemoglobin 30.7 pg Mean Corpuscular Hemoglobin Concent 33.9 g/dl Platelet Count 185 K/uL Mean Platelet Volume 11.3 fL Neutrophils (%) (Auto) 73.9 % Lymphocytes (%) (Auto) 15.7 % Monocytes (%) (Auto) 8.3 % Eosinophils (%) (Auto) 1.4 % Basophils (%) (Auto) 0.3 % Neutrophils # (Auto) 9.93 K/uL Lymphocytes # (Auto) 2.11 K/uL Monocytes # (Auto) 1.12 K/uL Eosinophils # (Auto) 0.19 K/uL Basophils # (Auto) 0.04 K/uL RDW Standard Deviation 48.3 fL RDW Coefficient of Variation 14.5 % Immature Granulocyte % (Auto) 0.4 % Immature Granulocyte # (Auto) 0.05 K/uL Sodium Level 146 mmol/L Potassium Level 3.3 mmol/L Chloride Level 114 mmol/L Carbon Dioxide Level 22 mmol/L Anion Gap 10.0 mmol/L Blood Urea Nitrogen 39 mg/dl Creatinine 0.66 mg/dl Est Creatinine Clear Calc Drug Dose 54.6 ml/min Estimated GFR () 94.7 Estimated GFR (Non- 81.7 BUN/Creatinine Ratio 58.3 Random Glucose 114 mg/dl Calcium Level 7.2 mg/dl Total Bilirubin 0.4 mg/dl Aspartate Amino Transf (AST/SGOT) 14 U/L Alanine Aminotransferase (ALT/SGPT) 14 U/L Alkaline Phosphatase 32 U/L Troponin I 0.102 ng/ml Total Protein 4.9 gm/dl Albumin 2.8 gm/dl Globulin 2.1 gm/dl Albumin/Globulin Ratio 1.3 Thyroid Stimulating Hormone (TSH) 0.271 uIu/ml Assessment and Plan This is an 81 yo F with PMHx of Multiple myeloma, peptic ulcer disease, external hemorrhoids with BRBPR, chronic diarrhea, s/p FL, CAD s/p CABG, paroxysmal afib, HTN, dyslipidemia, hyperparathyroidism, hypothyroidism, who has been following Dr. Maier with gastroenterology as an outpatient. The patient underwent emergent EGD found to have 2 bleeding vessels, and 1 nonbleeding ulcer. Pt was admitted to the ICU after EGD for acute GI bleed management. GI Bleed/ Peptic Ulcer disease/ Chronic Diarrhea/ External Hemorrhoids - Admit to ICU initially - will transfer to tele - Pt was urgently taken to the OR s/p increasing weakness and multiple episodes of hematemesis and hematchezia by GI. - Intubation performed in ED due to airway compromise with hematemesis and risk for aspiration, was successfully extubated 12/08 - Pt follows with Dr. Maier as an outpatient - GI on board. - Started on Protonix and octreotide gtt: octreotide gtt off last night, will continue protonix IV today and switch to oral tomorrow if she tolerates a clear liquid diet today - Pt is recieving fluids with protonix gtt, currently BP are stabilized with MAP >65. - Trial of clear liquids today - Pt received 6 U platelets prior to surg. - S/p 2 U PRBCs overnight for hbg drop to 7.2, has responded appropriately to 9.8 this morning. - will trend H&H Q6H for now, if remains stable then can decrease the frequency to q12H. - Troponin I first set negative, then bumped to 0.122 --> 0.102: due to demand ischemia with afib - Per operative note: EGD showed avascular malformation x 2 and 1 ulceration which was cauterized with epinephrine CAD s/p CABG x 3 Paroxysmal Atrial fibrillation - Was started on amiodarone gtt last night as antiarrhythmic . - Pt was previously admitted in Nov 2014 for melena, found to have a popliteal DVT and was started on lovenox and coumadin, then transitioned to plavix for anticoagulation as this reduced the risk or ulcers compared to coumadin or asa, with her pmhx of peptic ulcers - Continue to HOLD asa and plavix. - Consult cardiology for anticoagulation recommendations appreciated Will ask GI and cards to determine when anticoagulation should resume. Looking at starting eloquis in the future for anticoagulation with decreased risk of GI bleed. 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 Followed by Dr. Marquez - Received Zometa monthly last in Sep 2016, plan for no chemotherapy at this time - Follows with Dr. Rashid with [facility] Hyperparathyroidism - Cont CUSTOMER QUALITY ENGINEER sensispar 30 mg daily Hypothyroidism - Cont levothyroxine 75 mcg daily - TSH level checked = 0.271 DVT ppx: no chemical anticoagulation with GI bleed, SCDs, teds CODE STATUS: Full Code, will need to be discussed with the family and orders updated. Disposition: Transition out of the ICU to tele today, From home, lives with whom she takes care of, will ask CM to assist with discharge planning.
--- NOTE | 2016-12-09 11:42 | Medical Student: [facility] ---
Med Student Progress Note Date of Service Dec 09, 2016. Subjective Pt is an 81 year old female with a history of peptic ulcer disease, multiple myeloma, CABG, and Afib who is admitted for hematemesis related to 2 AVMs and a bleeding peptic ulcer, which were diagnosed and treated with good hemostasis via EGD. The pt reports feeling much better since yesterday with no further nausea, vomiting, or abdominal pain. She had 4 loose BMs yesterday with no blood noted. She denies chest pain, dyspnea, or palpitations. She still c/o mild sore throat s/p intubation, but states it is improving. Review of Systems Constitutional: + weakness ENT: + sore throat Respiratory: No shortness of breath Cardiac: No chest pain, No palpitations Abdomen: + diarrhea, + see HPI, No nausea, No pain, No vomiting All Other Systems: Reviewed and Negative Objective Vital Signs Date Time Temp Pulse Resp B/P Pulse Ox O2 Delivery O2 Flow Rate FiO2 12/09/16 06:00 82 13 134/57 95 Room Air 12/09/16 04:00 100 Nasal Cannula 2.0 12/09/16 04:00 37.0 80 18 131/50 99 Room Air 12/09/16 03:45 36.8 79 12 138/60 100 12/09/16 03:15 36.9 78 21 131/53 98 12/09/16 03:00 37.0 76 16 133/48 97 12/09/16 02:52 37.0 76 14 129/53 93 12/09/16 02:00 84 13 125/40 100 12/09/16 01:33 36.9 80 13 138/57 100 12/09/16 01:05 37.0 81 15 131/55 100 2.0 12/09/16 01:01 37.0 82 15 131/55 99 12/09/16 00:01 36.9 86 14 137/54 97 Nasal Cannula 2.0 12/08/16 23:59 100 Nasal Cannula 2.0 12/08/16 22:00 88 16 122/53 100 Nasal Cannula 2.0 12/08/16 20:00 100 Nasal Cannula 2.0 12/08/16 20:00 37.4 83 16 125/51 100 Nasal Cannula 2.0 12/08/16 18:00 122 22 128/63 98 Nasal Cannula 3.0 12/08/16 16:00 97 Nasal Cannula 4.0 12/08/16 16:00 36.7 112 18 123/60 100 Nasal Cannula 4.0 12/08/16 14:00 36.8 91 20 107/73 100 Nasal Cannula 4.0 12/08/16 13:10 36.8 90 20 106/56 98 Nasal Cannula 4.0 12/08/16 12:50 36.6 83 18 120/78 94 Mask 10 12/08/16 12:40 81 13 104/74 96 Mask 10 12/08/16 12:30 92 19 127/78 96 Mask 10 12/08/16 12:20 86 19 106/89 90 Mask 10 12/08/16 12:10 85 14 137/72 100 Mechanical Ventilator 40 12/08/16 12:00 72 14 116/56 100 Mechanical Ventilator 40 12/08/16 11:50 69 14 122/56 100 Mechanical Ventilator 40 12/08/16 11:40 68 14 121/50 100 Mechanical Ventilator 40 12/08/16 11:30 67 14 131/51 100 Mechanical Ventilator 40 12/08/16 11:20 77 14 121/53 100 Mechanical Ventilator 40 12/08/16 11:10 68 14 128/53 100 Mechanical Ventilator 40 12/08/16 11:00 68 14 112/51 100 Mechanical Ventilator 40 12/08/16 10:50 40 12/08/16 10:50 73 14 119/53 100 Mechanical Ventilator 40 12/08/16 10:40 36.4 67 14 173/80 100 Mechanical Ventilator 40 Physical Exam General Appearance: no apparent distress, + thin Eyes: bilateral eyes PERRL, bilateral eyes pertinent finding (Conjunctival pallor) ENT: + muffled/hoarse voice, + pertinent finding (Dry mucous membranes. No posterior oropharyngeal erythema. ) Neck: no carotid bruits, trachea midline Respiratory/Chest: lungs clear, normal breath sounds, no respiratory distress, no accessory muscle use Cardiovascular: regular rate, rhythm, no edema, no gallop, no JVD, no murmur Abdomen: non tender, soft, + pertinent finding (Decreased bowel sounds. 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, no motor/sensory deficits, alert, normal mood/affect, oriented x 3 Skin: warm/dry, no rash Laboratory Results Last 24 Hours Test 12/08/16 14:24 12/08/16 16:16 12/08/16 20:20 12/08/16 20:26 Hemoglobin 8.1 g/dL 7.2 g/dL Hematocrit 24.2 % 21.3 % Bedside Glucose 80 mg/dl 119 mg/dl Test 12/08/16 22:10 12/09/16 05:22 Troponin I 0.122 ng/ml 0.102 ng/ml White Blood Count 13.44 K/uL Red Blood Count 3.19 M/uL Hemoglobin 9.8 g/dL Hematocrit 28.9 % Mean Corpuscular Volume 90.6 fL Mean Corpuscular Hemoglobin 30.7 pg Mean Corpuscular Hemoglobin Concent 33.9 g/dl Platelet Count 185 K/uL Mean Platelet Volume 11.3 fL Neutrophils (%) (Auto) 73.9 % Lymphocytes (%) (Auto) 15.7 % Monocytes (%) (Auto) 8.3 % Eosinophils (%) (Auto) 1.4 % Basophils (%) (Auto) 0.3 % Neutrophils # (Auto) 9.93 K/uL Lymphocytes # (Auto) 2.11 K/uL Monocytes # (Auto) 1.12 K/uL Eosinophils # (Auto) 0.19 K/uL Basophils # (Auto) 0.04 K/uL RDW Standard Deviation 48.3 fL RDW Coefficient of Variation 14.5 % Immature Granulocyte % (Auto) 0.4 % Immature Granulocyte # (Auto) 0.05 K/uL Sodium Level 146 mmol/L Potassium Level 3.3 mmol/L Chloride Level 114 mmol/L Carbon Dioxide Level 22 mmol/L Anion Gap 10.0 mmol/L Blood Urea Nitrogen 39 mg/dl Creatinine 0.66 mg/dl Est Creatinine Clear Calc Drug Dose 54.6 ml/min Estimated GFR () 94.7 Estimated GFR (Non- 81.7 BUN/Creatinine Ratio 58.3 Random Glucose 114 mg/dl Calcium Level 7.2 mg/dl Total Bilirubin 0.4 mg/dl Aspartate Amino Transf (AST/SGOT) 14 U/L Alanine Aminotransferase (ALT/SGPT) 14 U/L Alkaline Phosphatase 32 U/L Total Protein 4.9 gm/dl Albumin 2.8 gm/dl Globulin 2.1 gm/dl Albumin/Globulin Ratio 1.3 Thyroid Stimulating Hormone (TSH) 0.271 uIu/ml Medications Medications Administered Medications (Trade) Dose Ordered Sig/Timo Route Start Time Stop Time Status Last Admin Dose Admin Octreotide Acetate (Sandostatin Iv Bolus & Drip) 1 ea NOW STAT IV 12/08/16 07:51 12/08/16 07:52 DC 12/08/16 08:27 1 EA Pantoprazole Sodium 1 ea 1 ea NOW STAT IV 12/08/16 07:51 12/08/16 07:52 DC 12/08/16 08:27 1 EA Sodium Chloride (Nss 1000ml) 1,000 ml @ 999 mls/hr Q1H1M STAT IV 12/08/16 07:51 12/09/16 08:20 DC 12/08/16 08:02 999 MLS/HR Ondansetron HCl 4 mg 4 mg NOW STAT IV 12/08/16 07:53 12/08/16 07:54 DC 12/08/16 08:02 4 MG Octreotide Acetate 100 mcg/ Syringe 10 ml @ 3 mls/min TODAY@0800 IV 12/08/16 08:00 12/08/16 10:00 DC 12/08/16 08:27 3 MLS/MIN Octreotide Acetate 500 mcg/ Sodium Chloride 105 ml @ 10 mls/hr [id number] IV 12/08/16 08:00 12/08/16 18:21 DC 12/08/16 08:27 10 MLS/HR Pantoprazole Sodium 40 mg/ Dextrose 100 ml @ 20 mls/hr Q5H IV 12/08/16 08:30 12/08/16 13:29 DC 12/08/16 08:27 20 MLS/HR Pantoprazole Sodium/Dextrose (Protonix Inj/D5 100ml) 120 ml @ 480 mls/hr TODAY@0800 IV 12/08/16 08:00 12/08/16 10:00 DC 12/08/16 08:27 480 MLS/HR Ceftriaxone Sodium (Rocephin Inj) 1 gm NOW STAT IV 12/08/16 08:34 12/08/16 08:35 DC 12/08/16 08:54 1 GM Metoclopramide HCl (Reglan Inj) 10 mg NOW STAT IV 12/08/16 08:38 12/08/16 08:39 DC 12/08/16 08:50 10 MG Miscellaneous (Rapid Sequence Induction Bag) 1 ea STK-MED ONCE N/A 12/08/16 08:41 12/08/16 08:43 DC 12/08/16 08:41 1 EA Etomidate (Amidate Inj) 20 mg 0848 STAT IV 12/08/16 08:48 12/08/16 08:50 DC 12/08/16 08:48 20 MG Succinylcholine Chloride (Quelicin Inj) 150 mg NOW STAT IV 12/08/16 08:48 12/08/16 08:50 DC 12/08/16 08:48 150 MG Vecuronium [place] (Vecuronium [place] Inj) 10 mg NOW STAT IV 12/08/16 08:48 12/08/16 08:50 DC 12/08/16 08:48 10 MG Propofol (Diprivan IV 100ML VIAL) 1 dose UD PRN IV 12/08/16 09:00 12/08/16 13:37 DC 12/08/16 09:22 1 DOSE Epinephrine HCl 1 mg 1 mg STK-MED ONCE .ROUTE 12/08/16 10:36 12/08/16 10:38 DC 12/08/16 10:07 0.4 MG Sodium Chloride (Nss 1000ml) 1,000 ml @ 45 mls/hr [id number] IV 12/08/16 11:33 12/09/16 08:02 DC 12/08/16 15:03 45 MLS/HR Morphine Sulfate (MoRPHine SULFATE INJ) 2 mg Q2H PRN IV 12/08/16 11:45 12/22/16 11:44 12/09/16 05:51 2 MG Cholecalciferol (Vitamin D Tab) 1,000 inter.unit DAILY PO 12/09/16 09:00 01/08/17 08:59 12/09/16 08:52 1,000 INTER.UNIT Metoprolol Succinate (Toprol Xl Tab) 25 mg DAILY PO 12/09/16 09:00 01/08/17 08:59 12/09/16 08:52 25 MG Prednisone (PredniSONE TAB) 5 mg DAILY PO 12/09/16 09:00 01/08/17 08:59 12/09/16 08:52 5 MG Cinacalcet (Sensipar) 30 mg DAILY PO 12/09/16 09:00 01/08/17 08:59 12/09/16 08:52 30 MG Pravastatin Sodium 20 mg 20 mg MoWeFr@0900 PO 12/09/16 09:00 01/08/17 08:59 12/09/16 08:52 20 MG Pantoprazole Sodium 40 mg/ Dextrose 100 ml @ 20 mls/hr Q5H IV 12/08/16 13:30 01/07/17 13:29 12/09/16 05:37 20 MLS/HR Amiodarone HCL/ Dextrose 100 ml @ 600 mls/hr NOW ONCE IV 12/08/16 17:45 12/08/16 17:54 DC 12/08/16 18:26 600 MLS/HR Amiodarone HCL/ Dextrose 200 ml @ 33.3 mls/hr Q6H1M IV 12/08/16 18:00 12/09/16 00:00 DC 12/08/16 18:26 33.3 MLS/HR Amiodarone HCL/ Dextrose 200 ml @ 16.7 mls/hr [id number] IV 12/09/16 00:01 01/08/17 00:00 12/09/16 00:27 16.7 MLS/HR Potassium Chloride 10 meq/ Prmx 100 ml @ 100 mls/hr Q1H IV 12/09/16 08:30 12/09/16 10:29 DC 12/09/16 08:51 100 MLS/HR Dextrose/Sodium Chloride (D5W And 1/2nss) 1,000 ml @ 40 mls/hr Q24H IV 12/09/16 08:00 01/08/17 07:59 12/09/16 08:51 40 MLS/HR Assessment and Plan Assessment and Plan: Pt is an 81 year old female with a history of peptic ulcer disease, multiple myeloma, CABG, and Afib who is admitted for hematemesis related to 2 AVMs and a bleeding peptic ulcer, which were diagnosed and treated via EGD. GI Bleeding - Hemostasis of 2 angiectasias and peptic ulcer was achieved via endoscopy. No further hematemesis. Pt received 2 units of blood yesterday as well as a total of 6 packs of platelets due to her being on Plavix. Octreotide has been discontinued. - Continue Protonix drip. - Progress to clear liquid diet. -Continue to hold Plavix and ASA at this time. Plan for discharge on Eliquis due to lower risk of bleeding recurrence per GI recommendation. Anemia - Hb today is 9.8 after 2 units of pRBCs were given, up from 7.2 yesterday. pRBCs were given due to troponin of 0.122 yesterday. - Continue to monitor daily H&H. Elevated troponin - Troponin yesterday was 0.122, decreased to 0.102 today. This is likely due to demand ischemia secondary to rapid Afib, which has improved with amiodarone drip, as well as anemia, which was treated with transfusion. - Continue to trend troponin. Afib with RVR - Pt has converted to NSR with amiodarone drip. - Continue amiodarone drip and telemetry. -Continue PO metoprolol. - Plan to restart home verapamil after amiodarone drip is discontinued. Elevated WBC - This continues to trend down, 13.4 today, down from 21 on admission. This is likely secondary to stress from the GI bleed as well as steroids she is receiving. No signs of infection, pt has been afebrile. - Will continue daily CBC. Hypernatremia/Hypokalemia - Na of 146, K 3.3. Will switch to 1/2 normal saline with 20 mEq potassium. Multiple myeloma - Pt is followed for this by Dr. Marquez. No chemotherapy is planned. Pt reports that she gets acyclovir daily for prophylaxis, which she would like to restart. -Will give acyclovir given normal renal function. Hyperthyroidism - TSH 0.271. - Continue levothyroxine. Hyperparathyroidism - Mild hypocalcemia of 7.2. Continue Vitamin D. Hypercholesterolemia - Continue home pravastatin. DVT prophylaxis - SCD's in place. No chemical anticoagulation at this time s/p GI bleed. Plan to transfer the pt to the floor with telemetry today.
[2016-12-09 13:47] LABS: BUN/CREATININE RATIO 47.8 (10-20); CALCIUM 7.5 mg/dl (8.5-10.1); CREATININE 0.64 mg/dl (0.60-1.20); PHOSPHORUS 1.9 mg/dl (2.5-4.9); POTASSIUM 3.7 mmol/L (3.5-5.1)
--- NOTE | 2016-12-09 17:17 | Cardiology Follow-Up ---
Subjective Date of Service: Dec 09, 2016. Pt evaluation today including: conversation w/ patient, conversation w/ family , physical exam, lab review, review of studies, review of inpatient medication list History of Present Illness She is feeling much better today, she has no specific complaints. She denies palpitations. She is not very aware of her medications that she takes at home but her son is in the room and he is going to review them and write down specifically what she is taking at home so we can be sure. Yesterday we started amiodarone in hopes of controlling her atrial arrhythmia to minimize the risk of stroke without anticoagulation. She remains on intravenous amiodarone. Social History Smoking Status: Never Smoker History of Alcohol Use: No Review of Systems Respiratory: No shortness of breath Cardiac: No chest pain Objective Vital Signs Past 12 Hours Date Time Temp Pulse Resp B/P Pulse Ox O2 Delivery O2 Flow Rate FiO2 12/09/16 16:00 36.4 91 22 135/73 98 Room Air 12/09/16 16:00 Room Air 12/09/16 15:48 88 97 12/09/16 12:00 98 Room Air 12/09/16 12:00 36.7 77 18 138/59 99 Room Air 12/09/16 10:00 78 18 134/51 100 Room Air 12/09/16 08:00 37.0 79 18 129/56 97 Room Air 12/09/16 08:00 97 Room Air 12/09/16 08:00 Room Air Nasal Cannula 12/09/16 06:00 82 13 134/57 95 Room Air Last Recorded Weight-Kilograms: 60.100 Intake & Output 8-Hour Column 12/08/16 12/09/16 12/09/16 16:00 00:00 08:00 Intake Total 1455 ml 594 ml 1193 ml Output Total 750 ml 525 ml 550 ml Balance 705 ml 69 ml 643 ml 24-Hour Column 12/09/16 08:00 Intake Total 3242 ml Output Total 1825 ml Balance 1417 ml Physical Exam Lungs: Respiratory effort: good air movement Auscultation: breath sounds normal, CTA except as noted, no wheezing, no rales/crackles, pertinent finding Cardiovascular: Heart Auscultation: normal S1, normal S2, no murmurs, irregular rate rhythm Peripheral Pulses: Bruits: none appreciated Data Laboratory Results: Last 24 Hours Test 12/08/16 20:20 12/08/16 20:26 12/08/16 22:10 12/09/16 05:22 Hemoglobin 7.2 g/dL 9.8 g/dL Hematocrit 21.3 % 28.9 % Bedside Glucose 119 mg/dl Troponin I 0.122 ng/ml 0.102 ng/ml White Blood Count 13.44 K/uL Red Blood Count 3.19 M/uL Mean Corpuscular Volume 90.6 fL Mean Corpuscular Hemoglobin 30.7 pg Mean Corpuscular Hemoglobin Concent 33.9 g/dl Platelet Count 185 K/uL Mean Platelet Volume 11.3 fL Neutrophils (%) (Auto) 73.9 % Lymphocytes (%) (Auto) 15.7 % Monocytes (%) (Auto) 8.3 % Eosinophils (%) (Auto) 1.4 % Basophils (%) (Auto) 0.3 % Neutrophils # (Auto) 9.93 K/uL Lymphocytes # (Auto) 2.11 K/uL Monocytes # (Auto) 1.12 K/uL Eosinophils # (Auto) 0.19 K/uL Basophils # (Auto) 0.04 K/uL RDW Standard Deviation 48.3 fL RDW Coefficient of Variation 14.5 % Immature Granulocyte % (Auto) 0.4 % Immature Granulocyte # (Auto) 0.05 K/uL Sodium Level 146 mmol/L Potassium Level 3.3 mmol/L Chloride Level 114 mmol/L Carbon Dioxide Level 22 mmol/L Anion Gap 10.0 mmol/L Blood Urea Nitrogen 39 mg/dl Creatinine 0.66 mg/dl Est Creatinine Clear Calc Drug Dose 54.6 ml/min Estimated GFR () 94.7 Estimated GFR (Non- 81.7 BUN/Creatinine Ratio 58.3 Random Glucose 114 mg/dl Calcium Level 7.2 mg/dl Total Bilirubin 0.4 mg/dl Aspartate Amino Transf (AST/SGOT) 14 U/L Alanine Aminotransferase (ALT/SGPT) 14 U/L Alkaline Phosphatase 32 U/L Total Protein 4.9 gm/dl Albumin 2.8 gm/dl Globulin 2.1 gm/dl Albumin/Globulin Ratio 1.3 Thyroid Stimulating Hormone (TSH) 0.271 uIu/ml Test 12/09/16 13:05 Hemoglobin 9.9 g/dL Hematocrit 29.0 % Sodium Level 144 mmol/L Potassium Level 3.7 mmol/L Chloride Level 114 mmol/L Carbon Dioxide Level 21 mmol/L Anion Gap 9.0 mmol/L Blood Urea Nitrogen 31 mg/dl Creatinine 0.64 mg/dl Est Creatinine Clear Calc Drug Dose 56.3 ml/min Estimated GFR () 95.6 Estimated GFR (Non- 82.5 BUN/Creatinine Ratio 47.8 Random Glucose 120 mg/dl Calcium Level 7.5 mg/dl Phosphorus Level 1.9 mg/dl Magnesium Level 2.0 mg/dl Telemetry reviewed: Conversion to sinus rhythm yesterday afternoon, she ran remained in sinus rhythm until this afternoon when she reverted back to atrial fibrillation. Assessment and Plan #1. Paroxysmal atrial fibrillation: She appears to have very frequent episodes of atrial fibrillation alternating with periods of sinus rhythm, on IV amiodarone yesterday she remained in sinus rhythm until today but now is back in atrial fibrillation. For the moment however we can't anticoagulate and I would recommend trying to keep in sinus rhythm, I would continue amiodarone which can take some time to be effective. That may not work over the long run but at least during the short term until we sort out her anticoagulation that may be the best option. #2. GI bleed: She has been on Plavix, I'm not sure if she has been on aspirin or an anticoagulant recently. Her son is going to go through her medications to be sure. For the moment we should not have her on platelet inhibitors. Hopefully we can keep her from having recurrent ulceration. In that case she should not have a lot of risk from anticoagulation. #3. DVT: She does have a history of DVT, and probably should be on anticoagulation for that. That gives her an additional thrombotic risk in addition to her risk of stroke, another reason to reconsider anticoagulation at a future date. #4. Anticoagulation status: At the moment I would agree with no anticoagulation , over the long run I would consider restarting one of the newer agents, probably Eliquis, once it is felt safe to do so per GI. I would be hesitant however to use combination therapy with anticoagulation and a platelet inhibitor. We can reduce her GI bleed risk from around 9% down to about 3% by stopping Plavix, with little change in her risk of stroke from atrial fibrillation and little change in her risk of DVT. Her risk of having a cardiac event is probably much lower than this. Thank you for allowing me to participate in her care.
[2016-12-09 19:59] LABS: HEMATOCRIT 27.2 % (37-47)
[2016-12-09] MEDS: HYDROCORTISONE HC 2.5% CRM 30GM TUBE EXT SCH (20:38)
[2016-12-09] MEDS: AMIODARONE 200 MG TAB PO SCH (20:38)
[2016-12-10] VITALS (7 sets, daily range): BP systolic 121–163; BP diastolic 56–70; PULSE 61–72; TEMP 36.8–37.3; O2SAT 96–100
[2016-12-10] MEDS: MoRPHine SULFATE 2 MG/ML CARP IV PRN (02:50)
[2016-12-10] MEDS: PANTOprazole INJ 40 MG in DEXTROSE 5% 100ML IV SCH ×5 (02:50→20:37)
[2016-12-10] MEDS: AMIODARONE / D5W 200 ML IV SCH ×2 (02:54→11:58)
[2016-12-10] MEDS: LEVOTHYROXINE 75 MCG TAB PO SCH (06:18)
[2016-12-10 06:32] LABS: BASO % 0.2 %; BASO ABS # 0.02 K/uL (0-0.2); EOS % 4.2 %; HEMATOCRIT 25.5 % (37-47); IG% 0.4 %; LYMPH % 19.7 %; LYMPH ABS # 1.64 K/uL (1.2-3.4); MEAN CELL VOLUME 89.2 fL (80-100); MEAN CORPUSCULAR HEMOGLOBIN 30.8 pg (25-34); MEAN CORPUSCULAR HGB CONC 34.5 g/dl (32-36); MEAN PLATELET VOLUME 10.9 fL (7.4-10.4); MONO % 9.2 %; NEUT % 66.3 %; PLATELET COUNT 155 K/uL (130-400); RED BLOOD COUNT 2.86 M/uL (4.2-5.4); WHITE BLOOD COUNT 8.33 K/uL (4.8-10.8)
[2016-12-10 07:07] LABS: CALCIUM 7.4 mg/dl (8.5-10.1); CREATININE 0.49 mg/dl (0.60-1.20); POTASSIUM 2.9 mmol/L (3.5-5.1)
[2016-12-10 07:08] LABS: COMPLETE YES
[2016-12-10 07:09] LABS: ALB/GLOB RATIO 1.2 (0.9-2)
[2016-12-10] MEDS ORDERED: POTASSIUM CHLORIDE 10 MEQ TABCR PO STA (07:28)
[2016-12-10] MEDS ORDERED: POTASSIUM CHLORIDE 20 MEQ TABCR PO SCH (08:00)
[2016-12-10] MEDS: POTASSIUM CHLR 10 MEQ / WTR 10 MEQ in PREMIXED WATER 100 ML IV SCH ×2 (08:43→11:13)
[2016-12-10] MEDS: HYDROCORTISONE HC 2.5% CRM 30GM TUBE EXT SCH ×2 (08:44→21:56)
[2016-12-10] MEDS: CINACALCET 30 MG TAB PO SCH (08:45)
[2016-12-10] MEDS: METOPROLOL SUCC 25MG EXT REL TAB PO SCH (08:45)
[2016-12-10] MEDS: CHOLECALCIFEROL 1000 INTER.UNIT TAB PO SCH (08:45)
[2016-12-10] MEDS: AMIODARONE 200 MG TAB PO SCH ×2 (08:45→20:37)
--- NOTE | 2016-12-10 09:40 | Gastroenterology Progress Note ---
Progress Note Date of Service: Dec 10, 2016 Subjective Pt evaluation today including: conversation w/ patient, physical exam, lab review, review of inpatient medication list Patient reports slightly improved energy today although she states she did not sleep well last night. Appetite is still decreased but she denies any nausea or vomiting, abdominal pain, melena or hematochezia. Hemoglobin did drop slightly from 9.5 to 8.8. She continues a PPI ggt and clear liquid diet. Review of Systems Constitutional: + see HPI Respiratory: No problem reported Cardiac: No problem reported Abdomen: + see HPI Psych: No problem reported Medications Current Inpatient Medications Medications (Trade) Dose Ordered Sig/Timo Route Start Time Stop Time Status Last Admin Dose Admin Lorazepam (Ativan Inj) 0.5 mg Q4H PRN IV 12/08/16 11:45 01/07/17 11:44 Morphine Sulfate (MoRPHine SULFATE INJ) 2 mg Q2H PRN IV 12/08/16 11:45 12/22/16 11:44 12/10/16 02:50 2 MG Cholecalciferol (Vitamin D Tab) 1,000 inter.unit DAILY PO 12/09/16 09:00 01/08/17 08:59 12/10/16 08:45 1,000 INTER.UNIT Levothyroxine Sodium (Synthroid Tab) 75 mcg DAILYBB PO 12/09/16 06:00 01/08/17 05:59 12/10/16 06:18 75 MCG Metoprolol Succinate (Toprol Xl Tab) 25 mg DAILY PO 12/09/16 09:00 01/08/17 08:59 12/10/16 08:45 25 MG Prednisone (PredniSONE TAB) 5 mg DAILY PO 12/09/16 09:00 01/08/17 08:59 12/10/16 08:45 5 MG Cinacalcet (Sensipar) 30 mg DAILY PO 12/09/16 09:00 01/08/17 08:59 12/10/16 08:45 30 MG Pravastatin Sodium 20 mg 20 mg MoWeFr@0900 PO 12/09/16 09:00 01/08/17 08:59 12/09/16 08:52 20 MG Pantoprazole Sodium 40 mg/ Dextrose 100 ml @ 20 mls/hr Q5H IV 12/08/16 13:30 01/07/17 13:29 12/10/16 08:43 20 MLS/HR Amiodarone HCL/ Dextrose 200 ml @ 16.7 mls/hr [id number] IV 12/09/16 00:01 01/08/17 00:00 12/10/16 02:54 16.7 MLS/HR Dextrose/Sodium Chloride (D5W And 1/2nss) 1,000 ml @ 40 mls/hr Q24H IV 12/09/16 08:00 01/08/17 07:59 12/09/16 08:51 40 MLS/HR Hydrocortisone (Proctozone Hc 2.5% Crm) 1 appln BID EXT 12/09/16 21:00 01/08/17 20:59 12/10/16 08:44 1 APPLN Amiodarone HCl 400 mg 400 mg BID PO 12/09/16 21:00 01/08/17 20:59 12/10/16 08:45 400 MG Potassium Chloride/Prmx (Kcl 10 Meq / Wtr/Premixed Water) 100 ml @ 100 mls/hr TODAY@0830,0930 IV 12/10/16 08:30 12/10/16 10:29 12/10/16 08:43 100 MLS/HR Potassium Chloride (Klor-Con Tab) 20 meq QAM PO 12/11/16 09:00 01/10/17 08:59 Objective Vital Signs Date Time Temp Pulse Resp B/P Pulse Ox O2 Delivery O2 Flow Rate FiO2 12/10/16 04:00 37.1 71 20 136/68 96 Room Air 12/10/16 04:00 Room Air 12/09/16 23:59 Room Air 12/09/16 23:59 37.0 73 18 151/65 97 Room Air 12/09/16 20:00 37.1 81 16 155/75 97 Room Air 12/09/16 20:00 Room Air 12/09/16 16:00 36.4 91 22 135/73 98 Room Air 12/09/16 16:00 Room Air 12/09/16 15:48 88 97 12/09/16 12:00 98 Room Air 12/09/16 12:00 36.7 77 18 138/59 99 Room Air 12/09/16 10:00 78 18 134/51 100 Room Air Physical Exam General Appearance: no apparent distress Eyes: EOMI ENT: hearing grossly normal Respiratory/Chest: lungs clear, normal breath sounds, no respiratory distress Cardiovascular: regular rate, rhythm, no gallop, no murmur Abdomen: normal bowel sounds, non tender, soft Neurologic/Psych: alert, normal mood/affect, oriented x 3 Skin: warm/dry Laboratory Results Last 24 Hours Test 12/09/16 13:05 12/09/16 19:49 12/10/16 06:20 Hemoglobin 9.9 g/dL 9.5 g/dL 8.8 g/dL Hematocrit 29.0 % 27.2 % 25.5 % Sodium Level 144 mmol/L 144 mmol/L Potassium Level 3.7 mmol/L 2.9 mmol/L Chloride Level 114 mmol/L 112 mmol/L Carbon Dioxide Level 21 mmol/L 22 mmol/L Anion Gap 9.0 mmol/L 10.0 mmol/L Blood Urea Nitrogen 31 mg/dl 11 mg/dl Creatinine 0.64 mg/dl 0.49 mg/dl Est Creatinine Clear Calc Drug Dose 56.3 ml/min 73.5 ml/min Estimated GFR () 95.6 104.4 Estimated GFR (Non- 82.5 90.1 BUN/Creatinine Ratio 47.8 22.0 Random Glucose 120 mg/dl 107 mg/dl Calcium Level 7.5 mg/dl 7.4 mg/dl Phosphorus Level 1.9 mg/dl Magnesium Level 2.0 mg/dl 2.0 mg/dl White Blood Count 8.33 K/uL Red Blood Count 2.86 M/uL Mean Corpuscular Volume 89.2 fL Mean Corpuscular Hemoglobin 30.8 pg Mean Corpuscular Hemoglobin Concent 34.5 g/dl Platelet Count 155 K/uL Mean Platelet Volume 10.9 fL Neutrophils (%) (Auto) 66.3 % Lymphocytes (%) (Auto) 19.7 % Monocytes (%) (Auto) 9.2 % Eosinophils (%) (Auto) 4.2 % Basophils (%) (Auto) 0.2 % Neutrophils # (Auto) 5.52 K/uL Lymphocytes # (Auto) 1.64 K/uL Monocytes # (Auto) 0.77 K/uL Eosinophils # (Auto) 0.35 K/uL Basophils # (Auto) 0.02 K/uL RDW Standard Deviation 49.5 fL RDW Coefficient of Variation 15.1 % Immature Granulocyte % (Auto) 0.4 % Immature Granulocyte # (Auto) 0.03 K/uL Red Blood Cell Morphology Unremarkable Total Bilirubin 0.5 mg/dl Aspartate Amino Transf (AST/SGOT) 15 U/L Alanine Aminotransferase (ALT/SGPT) 11 U/L Alkaline Phosphatase 30 U/L Total Protein 4.4 gm/dl Albumin 2.4 gm/dl Globulin 2.0 gm/dl Albumin/Globulin Ratio 1.2 Assessment and Plan Patient is a 81 year old female with a history of multiple myeloma and PUD presenting with weakness, hematemesis, and acute blood loss anemia with findings of bleeding AVM and gastric ulcer status post hemostasis during endoscopy yesterday. 1. Can advance diet as tolerated. 2. Continue Protonix ggt at 8 mg/hr for a total of 72 hours. 3. Supportive care via primary team. Agree with OSCAR Simpson as above Abd: Soft, NT, ND, +BS 2 BM's today which were brown Continue Protonix gtt for 72 hours, then Protonix 40mg PO BID Anticoagulation as per cardiology.
--- NOTE | 2016-12-10 11:35 | Medical Student: [facility] ---
Med Student Progress Note Date of Service Dec 10, 2016. Subjective Pt evaluation today including: conversation w/ patient, physical exam, chart review, lab review, review of studies Pt is an 81 year old female with a history of peptic ulcer disease, multiple myeloma, CABG, and Afib who is admitted for hematemesis related to 2 AVMs and a bleeding peptic ulcer, which were diagnosed and treated via EGD. She continues to feel better with no recurrent nausea, vomiting, or abd pain. She had two BMs yesterday (diarrhea) with no blood noted. She has decreased appetite and has only tolerated juice and ug[place] ice since yesterday. She has had some back pain , which improved with morphine 2mg and repositioning. She denies back pain now. No CP, dyspnea, or palpitations. She was only able to get out of bed to walk a few steps yesterday secondary to generalized weakness. She was not able to get much sleep last night as she was waiting for a phone call from family. Review of Systems Constitutional: + fatigue, + weakness, No chills, No fever Respiratory: No shortness of breath Cardiac: No chest pain, No palpitations Abdomen: + see HPI Female : No dysuria All Other Systems: Reviewed and Negative Objective Vital Signs Date Time Temp Pulse Resp B/P Pulse Ox O2 Delivery O2 Flow Rate FiO2 12/10/16 04:00 37.1 71 20 136/68 96 Room Air 12/10/16 04:00 Room Air 12/09/16 23:59 Room Air 12/09/16 23:59 37.0 73 18 151/65 97 Room Air 12/09/16 20:00 37.1 81 16 155/75 97 Room Air 12/09/16 20:00 Room Air 12/09/16 16:00 36.4 91 22 135/73 98 Room Air 12/09/16 16:00 Room Air 12/09/16 15:48 88 97 12/09/16 12:00 98 Room Air 12/09/16 12:00 36.7 77 18 138/59 99 Room Air 12/09/16 10:00 78 18 134/51 100 Room Air 12/09/16 08:00 37.0 79 18 129/56 97 Room Air 12/09/16 08:00 97 Room Air 12/09/16 08:00 Room Air Nasal Cannula Physical Exam General Appearance: WD/WN, no apparent distress, + thin, + pertinent finding ( Elderly female sitting comfortably in bed. ) Eyes: bilateral eyes EOMI, bilateral eyes PERRL, bilateral eyes pertinent finding (Conjunctival pallor. ) ENT: hearing grossly normal, pharynx normal, + pertinent finding (Dry mucous membranes. ) Neck: supple, no carotid bruits, trachea midline Respiratory/Chest: lungs clear, normal breath sounds, no respiratory distress, no accessory muscle use Cardiovascular: regular rate, rhythm, no edema, no gallop, no murmur Abdomen: non tender, soft, no organomegaly, + pertinent finding (Nondistended. Hypoactive bowel sounds. ) Extremities: non-tender, normal inspection, no pedal edema, no calf tenderness Neurologic/Psychiatric: manager business intelligence II-XII nml as tested, no motor/sensory deficits, alert, normal mood/affect, oriented x 3 Skin: normal color, warm/dry, no rash Laboratory Results Last 24 Hours Test 12/09/16 13:05 12/09/16 19:49 12/10/16 06:20 Hemoglobin 9.9 g/dL 9.5 g/dL 8.8 g/dL Hematocrit 29.0 % 27.2 % 25.5 % Sodium Level 144 mmol/L Potassium Level 3.7 mmol/L Chloride Level 114 mmol/L Carbon Dioxide Level 21 mmol/L Anion Gap 9.0 mmol/L Blood Urea Nitrogen 31 mg/dl Creatinine 0.64 mg/dl Est Creatinine Clear Calc Drug Dose 56.3 ml/min Estimated GFR () 95.6 Estimated GFR (Non- 82.5 BUN/Creatinine Ratio 47.8 Random Glucose 120 mg/dl Calcium Level 7.5 mg/dl Phosphorus Level 1.9 mg/dl Magnesium Level 2.0 mg/dl White Blood Count 8.33 K/uL Red Blood Count 2.86 M/uL Mean Corpuscular Volume 89.2 fL Mean Corpuscular Hemoglobin 30.8 pg Mean Corpuscular Hemoglobin Concent 34.5 g/dl Platelet Count 155 K/uL Mean Platelet Volume 10.9 fL Neutrophils (%) (Auto) 66.3 % Lymphocytes (%) (Auto) 19.7 % Monocytes (%) (Auto) 9.2 % Eosinophils (%) (Auto) 4.2 % Basophils (%) (Auto) 0.2 % Neutrophils # (Auto) 5.52 K/uL Lymphocytes # (Auto) 1.64 K/uL Monocytes # (Auto) 0.77 K/uL Eosinophils # (Auto) 0.35 K/uL Basophils # (Auto) 0.02 K/uL RDW Standard Deviation 49.5 fL RDW Coefficient of Variation 15.1 % Immature Granulocyte % (Auto) 0.4 % Immature Granulocyte # (Auto) 0.03 K/uL Medications Medications Administered Medications (Trade) Dose Ordered Sig/Timo Route Start Time Stop Time Status Last Admin Dose Admin Octreotide Acetate (Sandostatin Iv Bolus & Drip) 1 ea NOW STAT IV 12/08/16 07:51 12/08/16 07:52 DC 12/08/16 08:27 1 EA Pantoprazole Sodium 1 ea 1 ea NOW STAT IV 12/08/16 07:51 12/08/16 07:52 DC 12/08/16 08:27 1 EA Sodium Chloride (Nss 1000ml) 1,000 ml @ 999 mls/hr Q1H1M STAT IV 12/08/16 07:51 12/09/16 08:20 DC 12/08/16 08:02 999 MLS/HR Ondansetron HCl 4 mg 4 mg NOW STAT IV 12/08/16 07:53 12/08/16 07:54 DC 12/08/16 08:02 4 MG Octreotide Acetate 100 mcg/ Syringe 10 ml @ 3 mls/min TODAY@0800 IV 12/08/16 08:00 12/08/16 10:00 DC 12/08/16 08:27 3 MLS/MIN Octreotide Acetate 500 mcg/ Sodium Chloride 105 ml @ 10 mls/hr [id number] IV 12/08/16 08:00 12/08/16 18:21 DC 12/08/16 08:27 10 MLS/HR Pantoprazole Sodium 40 mg/ Dextrose 100 ml @ 20 mls/hr Q5H IV 12/08/16 08:30 12/08/16 13:29 DC 12/08/16 08:27 20 MLS/HR Pantoprazole Sodium/Dextrose (Protonix Inj/D5 100ml) 120 ml @ 480 mls/hr TODAY@0800 IV 12/08/16 08:00 12/08/16 10:00 DC 12/08/16 08:27 480 MLS/HR Ceftriaxone Sodium (Rocephin Inj) 1 gm NOW STAT IV 12/08/16 08:34 12/08/16 08:35 DC 12/08/16 08:54 1 GM Metoclopramide HCl (Reglan Inj) 10 mg NOW STAT IV 12/08/16 08:38 12/08/16 08:39 DC 12/08/16 08:50 10 MG Miscellaneous (Rapid Sequence Induction Bag) 1 ea STK-MED ONCE N/A 12/08/16 08:41 12/08/16 08:43 DC 12/08/16 08:41 1 EA Etomidate (Amidate Inj) 20 mg 0848 STAT IV 12/08/16 08:48 12/08/16 08:50 DC 12/08/16 08:48 20 MG Succinylcholine Chloride (Quelicin Inj) 150 mg NOW STAT IV 12/08/16 08:48 12/08/16 08:50 DC 12/08/16 08:48 150 MG Vecuronium [place] (Vecuronium [place] Inj) 10 mg NOW STAT IV 12/08/16 08:48 12/08/16 08:50 DC 12/08/16 08:48 10 MG Propofol (Diprivan IV 100ML VIAL) 1 dose UD PRN IV 12/08/16 09:00 12/08/16 13:37 DC 12/08/16 09:22 1 DOSE Epinephrine HCl 1 mg 1 mg STK-MED ONCE .ROUTE 12/08/16 10:36 12/08/16 10:38 DC 12/08/16 10:07 0.4 MG Sodium Chloride (Nss 1000ml) 1,000 ml @ 45 mls/hr [id number] IV 12/08/16 11:33 12/09/16 08:02 DC 12/08/16 15:03 45 MLS/HR Morphine Sulfate (MoRPHine SULFATE INJ) 2 mg Q2H PRN IV 12/08/16 11:45 12/22/16 11:44 12/10/16 02:50 2 MG Cholecalciferol (Vitamin D Tab) 1,000 inter.unit DAILY PO 12/09/16 09:00 01/08/17 08:59 12/09/16 08:52 1,000 INTER.UNIT Levothyroxine Sodium (Synthroid Tab) 75 mcg DAILYBB PO 12/09/16 06:00 01/08/17 05:59 12/10/16 06:18 75 MCG Metoprolol Succinate (Toprol Xl Tab) 25 mg DAILY PO 12/09/16 09:00 01/08/17 08:59 12/09/16 08:52 25 MG Prednisone (PredniSONE TAB) 5 mg DAILY PO 12/09/16 09:00 01/08/17 08:59 12/09/16 08:52 5 MG Cinacalcet (Sensipar) 30 mg DAILY PO 12/09/16 09:00 01/08/17 08:59 12/09/16 08:52 30 MG Pravastatin Sodium 20 mg 20 mg MoWeFr@0900 PO 12/09/16 09:00 01/08/17 08:59 12/09/16 08:52 20 MG Pantoprazole Sodium 40 mg/ Dextrose 100 ml @ 20 mls/hr Q5H IV 12/08/16 13:30 01/07/17 13:29 12/10/16 02:50 20 MLS/HR Amiodarone HCL/ Dextrose 100 ml @ 600 mls/hr NOW ONCE IV 12/08/16 17:45 12/08/16 17:54 DC 12/08/16 18:26 600 MLS/HR Amiodarone HCL/ Dextrose 200 ml @ 33.3 mls/hr Q6H1M IV 12/08/16 18:00 12/09/16 00:00 DC 12/08/16 18:26 33.3 MLS/HR Amiodarone HCL/ Dextrose 200 ml @ 16.7 mls/hr [id number] IV 12/09/16 00:01 01/08/17 00:00 12/10/16 02:54 16.7 MLS/HR Potassium Chloride 10 meq/ Prmx 100 ml @ 100 mls/hr Q1H IV 12/09/16 08:30 12/09/16 10:29 DC 12/09/16 10:33 100 MLS/HR Dextrose/Sodium Chloride (D5W And 1/2nss) 1,000 ml @ 40 mls/hr Q24H IV 12/09/16 08:00 01/08/17 07:59 12/09/16 08:51 40 MLS/HR Hydrocortisone (Proctozone Hc 2.5% Crm) 1 appln BID EXT 12/09/16 21:00 01/08/17 20:59 12/09/16 20:38 1 APPLN Amiodarone HCl (Cordarone Tab) 400 mg BID PO 12/09/16 21:00 01/08/17 20:59 12/09/16 20:38 400 MG Assessment and Plan Assessment and Plan: GI Bleeding - Hemostasis of 2 angiectasias and peptic ulcer was achieved via endoscopy. No further hematemesis. Pt received 2 units of blood as well as a total of 6 packs of platelets due to her being on Plavix. - Plan to switch to PO Protonix as she has been on IV for 48 hours. - Continue clear liquid diet. Will give a Boost or Ensure drink (aspartame free due to allergy) as the pt has not been able to tolerate much PO intake since yesterday. -Continue to hold Plavix and ASA at this time. Plan for discharge on Eliquis due to lower risk of bleeding recurrence per GI recommendation. Anemia - Hb today is 8.8, down from 9.9 yesterday. - Continue to monitor daily H&H. - Obtain Hemoccult stool to assess for any recurrent GI bleeding. Elevated troponin, peaked at 0.122 - Likely due to demand ischemia secondary to rapid Afib, which has improved with amiodarone drip, as well as anemia, which was treated with transfusion. Afib with RVR - Pt has remained in NSR with amiodarone drip. - Discontinue the IV amiodarone and switch to PO amiodarone 400 mg bid. -Continue PO metoprolol. - Plan to restart home verapamil upon discharge. Elevated WBC - This continues to trend down, 8.3, down from 21 on admission. This was likely secondary to stress from the GI bleed as well as steroids. No signs of infection, pt has been afebrile. - Will continue daily CBC. Electrolyte abnormalities - Na has normalized to 144. Continued hypokalemia with K of 2.9. Phosphorus is low at 1.9. Mg is WNL at 2.0. Mild hypocalcemia of 7.4. - Will give potassium 40 mEq PO and 10 mEq IV. - Will continue IVF until the pt is able to tolerate more PO fluids. - Continue Vitamin D for low phosphorus and low calcium. Multiple myeloma - Pt is followed for this by Dr. Marquez. No chemotherapy is planned. Pt reports that she gets acyclovir daily for prophylaxis, which she would like to restart. -Will give acyclovir given normal renal function. Hyperthyroidism - TSH 0.271. - Continue levothyroxine. Hyperparathyroidism - - Consider holding Cinacalcet until calcium and phosphorus normalize. Hypercholesterolemia - Continue home pravastatin. DVT prophylaxis - SCD's in place. No chemical anticoagulation at this time s/p GI bleed. Back pain - Give morphine 2 mg q2h prn and reposition.
--- NOTE | 2016-12-10 12:13 | Hospitalist Progress Note ---
Hospitalist Progress Note Date of Service Dec 10, 2016. Subjective Pt evaluation today including: conversation w/ patient, physical exam, chart review, lab review, review of studies, review of inpatient medication list Pain: None PO Intake: Fair Voiding: rudolph catheter in place The patient was seen and examined this morning. Pt reports feeling tired today. She denies bloody bowel movements or indigestion. Pt has tolerated clear liquids without difficulty. Diet was advanced by GI this morning. Pt denies chest pain, palpitations, lightheadedness or dizziness, sob, abdominal pain, nausea, vomiting, diarrhea or constipation. Pt remains on amiodarone gtt, was started on oral last evening for conversion. Her rate is controlled on gtt. Plan to transition out to tele today if there is bed available. All Other Systems: Reviewed and Negative Objective Vital Signs Date Time Temp Pulse Resp B/P Pulse Ox O2 Delivery O2 Flow Rate FiO2 12/10/16 04:00 37.1 71 20 136/68 96 Room Air 12/10/16 04:00 Room Air 12/09/16 23:59 Room Air 12/09/16 23:59 37.0 73 18 151/65 97 Room Air 12/09/16 20:00 37.1 81 16 155/75 97 Room Air 12/09/16 20:00 Room Air 12/09/16 16:00 36.4 91 22 135/73 98 Room Air 12/09/16 16:00 Room Air 12/09/16 15:48 88 97 12/09/16 12:00 98 Room Air 12/09/16 12:00 36.7 77 18 138/59 99 Room Air 12/09/16 10:00 78 18 134/51 100 Room Air 12/09/16 08:00 37.0 79 18 129/56 97 Room Air 12/09/16 08:00 97 Room Air 12/09/16 08:00 Room Air Nasal Cannula Physical Exam Notes: Vital Signs - as noted below Laboratory Data - as noted below Physical Exam: General - NAD, appears fatigued Eyes - No icterus, gaze conjugate ENT - Mucosa moist, no lesions or candidiasis Neck - Supple, No JVD Lungs - + faint crackles at bases bilaterally, no rhonchi and wheeze. No cough Heart - irregular, rate controlled Abdomen - Soft, NT, ND, BS present Extremities - No edema, pedal pulses intact Neuro - A&OX3 Laboratory Results Last 24 Hours Test 12/09/16 13:05 12/09/16 19:49 12/10/16 06:20 Hemoglobin 9.9 g/dL 9.5 g/dL 8.8 g/dL Hematocrit 29.0 % 27.2 % 25.5 % Sodium Level 144 mmol/L 144 mmol/L Potassium Level 3.7 mmol/L 2.9 mmol/L Chloride Level 114 mmol/L 112 mmol/L Carbon Dioxide Level 21 mmol/L 22 mmol/L Anion Gap 9.0 mmol/L 10.0 mmol/L Blood Urea Nitrogen 31 mg/dl 11 mg/dl Creatinine 0.64 mg/dl 0.49 mg/dl Est Creatinine Clear Calc Drug Dose 56.3 ml/min 73.5 ml/min Estimated GFR () 95.6 104.4 Estimated GFR (Non- 82.5 90.1 BUN/Creatinine Ratio 47.8 22.0 Random Glucose 120 mg/dl 107 mg/dl Calcium Level 7.5 mg/dl 7.4 mg/dl Phosphorus Level 1.9 mg/dl Magnesium Level 2.0 mg/dl White Blood Count 8.33 K/uL Red Blood Count 2.86 M/uL Mean Corpuscular Volume 89.2 fL Mean Corpuscular Hemoglobin 30.8 pg Mean Corpuscular Hemoglobin Concent 34.5 g/dl Platelet Count 155 K/uL Mean Platelet Volume 10.9 fL Neutrophils (%) (Auto) 66.3 % Lymphocytes (%) (Auto) 19.7 % Monocytes (%) (Auto) 9.2 % Eosinophils (%) (Auto) 4.2 % Basophils (%) (Auto) 0.2 % Neutrophils # (Auto) 5.52 K/uL Lymphocytes # (Auto) 1.64 K/uL Monocytes # (Auto) 0.77 K/uL Eosinophils # (Auto) 0.35 K/uL Basophils # (Auto) 0.02 K/uL RDW Standard Deviation 49.5 fL RDW Coefficient of Variation 15.1 % Immature Granulocyte % (Auto) 0.4 % Immature Granulocyte # (Auto) 0.03 K/uL Red Blood Cell Morphology Unremarkable Total Bilirubin 0.5 mg/dl Aspartate Amino Transf (AST/SGOT) 15 U/L Alanine Aminotransferase (ALT/SGPT) 11 U/L Alkaline Phosphatase 30 U/L Total Protein 4.4 gm/dl Albumin 2.4 gm/dl Globulin 2.0 gm/dl Albumin/Globulin Ratio 1.2 Assessment and Plan This is an 81 yo F with PMHx of Multiple myeloma, peptic ulcer disease, external hemorrhoids with BRBPR, chronic diarrhea, s/p TX, CAD s/p CABG, paroxysmal afib, HTN, dyslipidemia, hyperparathyroidism, hypothyroidism, who has been following Dr. Maier with gastroenterology as an outpatient. The patient underwent emergent EGD found to have 2 bleeding vessels, and 1 nonbleeding ulcer. Pt was admitted to the ICU after EGD for acute GI bleed management. GI Bleed/ Peptic Ulcer disease/ Chronic Diarrhea/ External Hemorrhoids - Transfer to tele - Pt was urgently taken to the OR s/p increasing weakness and multiple episodes of hematemesis and hematchezia by GI. - Intubation performed in ED due to airway compromise with hematemesis and risk for aspiration, was successfully extubated 12/08 - Pt follows with Dr. Maier as an outpatient - GI on board. - Switch to oral protonix - VSS, currently BP are stabilized with MAP >65. - Tolerated clear liquids without difficulty. GI ok with advancing diet as tolerated. - Pt received 6 U platelets prior to surg. - S/p 2 U PRBCs overnight for hbg drop to 7.2- responded appropriately to 9.8 - - now slowly trending back downward to 8.8 today - will trend H&H Q6H for now, if remains stable then can decrease the frequency to q12H. - Troponin I first set negative, then bumped to 0.122 --> 0.102: due to demand ischemia with afib - Per operative note: EGD showed avascular malformation x 2 and 1 ulceration which was cauterized with epinephrine CAD s/p CABG x 3 Paroxysmal Atrial fibrillation - amiodarone gtt running, Central arterial line placed on 12/09 - will discuss w / cardiology about transitioning to PO - Pt was previously admitted in Nov 2014 for melena, found to have a popliteal DVT and was started on lovenox and coumadin, then transitioned to plavix for anticoagulation as this reduced the risk or ulcers compared to coumadin or asa, with her pmhx of peptic ulcers - Continue to HOLD asa and plavix. - Consult cardiology for anticoagulation recommendations appreciated Will ask GI and cards to determine when anticoagulation should resume. Looking at starting eloquis in the future for anticoagulation with decreased risk of GI bleed. Hypokalemia - Yesterday was low ~ 3 and even with replacement decreased to 2.9 today. - Administered 20 meq IV and 40 mg PO today. Will give another dose this afternoon - Start daily dose of 20 meq at baseline tomorrow. HTN - Cont verapamil 240 mg PO HS - Cont metoprolol succinate 25 mg daily Dyslipidemia - Cont ship's captain pravastatin MWF Multiple Myeloma - Stable plasma dyscrasia, stage II. Followed by Dr. Marquez - Received Zometa monthly last in Sep 2016, plan for no chemotherapy at this time - Follows with Dr. Rashid with [facility] Hyperparathyroidism - Cont TRANSFORMATION COACH sensispar 30 mg daily Hypothyroidism - Cont levothyroxine 75 mcg daily - TSH level checked = 0.271 DVT ppx: no chemical anticoagulation with GI bleed, SCDs, teds CODE STATUS: Full Code, no mechanical ventilation Disposition: Transition out of the ICU to tele today ( no beds available yesterday), From home, lives with whom she takes care of, will ask CM to assist with discharge planning.
[2016-12-10] MEDS ORDERED: POTASSIUM CHLORIDE 20 MEQ TABCR PO ONE (12:15)
[2016-12-10] MEDS ORDERED: NURSING VERBAL MED ORDER ONE (15:15)
[2016-12-10 16:41] LABS: BUN/CREATININE RATIO 15.3 (10-20); CALCIUM 7.5 mg/dl (8.5-10.1); CREATININE 0.62 mg/dl (0.60-1.20); POTASSIUM 4.1 mmol/L (3.5-5.1)
--- NOTE | 2016-12-10 18:03 | Cardiology Follow-Up ---
Subjective Date of Service: Dec 10, 2016. Pt evaluation today including: conversation w/ patient, physical exam, lab review, review of studies, review of inpatient medication list History of Present Illness She is feeling much better today, she has no specific complaints. She denies palpitations. We started amiodarone in hopes of controlling her atrial arrhythmia to minimize the risk of stroke without anticoagulation. She was on intravenous amiodarone for about 48 hours with a 24-hour overlap with oral. She is now on oral amiodarone. She seems to be tolerating it well. We have withheld anticoagulant so far.. Social History Smoking Status: Never Smoker History of Alcohol Use: No Review of Systems Respiratory: No problem reported Cardiac: No problem reported Medications Cardiovascular: Item Value Date Time Potassium Chloride 20 meq 12/11/16 0900 (Klor-Con Tab) QAM/PO Amiodarone HCl 400 mg 12/09/16 2100 (Cordarone Tab) BID/PO 12/10/16 0845 Metoprolol 25 mg 12/09/16 0900 Succinate DAILY/PO 12/10/16 0845 (Toprol Xl Tab) Pravastatin Sodium 20 mg 12/09/16 0900 (Pravachol Tab) MoWeFr@0900/PO 12/09/16 0852 Objective Vital Signs Past 12 Hours Date Time Temp Pulse Resp B/P Pulse Ox O2 Delivery O2 Flow Rate FiO2 12/10/16 16:11 70 99 12/10/16 16:00 36.8 63 18 121/58 100 Room Air 12/10/16 16:00 Room Air 12/10/16 12:00 Room Air 12/10/16 12:00 37.1 63 12 146/57 99 Room Air 12/10/16 08:00 37.1 61 20 145/70 96 Room Air 12/10/16 08:00 Room Air Last Recorded Weight-Kilograms: 60.100 Intake & Output 8-Hour Column 12/09/16 12/10/16 12/10/16 16:00 00:00 08:00 Intake Total 634 ml 605 ml 694 ml Output Total 450 ml 1150 ml 600 ml Balance 184 ml -545 ml 94 ml 24-Hour Column 12/10/16 08:00 Intake Total 1933 ml Output Total 2200 ml Balance -267 ml Physical Exam Lungs: Respiratory effort: good air movement Auscultation: breath sounds normal, no wheezing, no rales/crackles, pertinent finding Cardiovascular: Heart Auscultation: normal S1, normal S2, no murmurs, irregular rate rhythm Peripheral Pulses: Bruits: none appreciated Data Laboratory Results: Last 24 Hours Test 12/09/16 19:49 12/10/16 06:20 12/10/16 11:18 12/10/16 16:00 Hemoglobin 9.5 g/dL 8.8 g/dL Hematocrit 27.2 % 25.5 % White Blood Count 8.33 K/uL Red Blood Count 2.86 M/uL Mean Corpuscular Volume 89.2 fL Mean Corpuscular Hemoglobin 30.8 pg Mean Corpuscular Hemoglobin Concent 34.5 g/dl Platelet Count 155 K/uL Mean Platelet Volume 10.9 fL Neutrophils (%) (Auto) 66.3 % Lymphocytes (%) (Auto) 19.7 % Monocytes (%) (Auto) 9.2 % Eosinophils (%) (Auto) 4.2 % Basophils (%) (Auto) 0.2 % Neutrophils # (Auto) 5.52 K/uL Lymphocytes # (Auto) 1.64 K/uL Monocytes # (Auto) 0.77 K/uL Eosinophils # (Auto) 0.35 K/uL Basophils # (Auto) 0.02 K/uL RDW Standard Deviation 49.5 fL RDW Coefficient of Variation 15.1 % Immature Granulocyte % (Auto) 0.4 % Immature Granulocyte # (Auto) 0.03 K/uL Red Blood Cell Morphology Unremarkable Sodium Level 144 mmol/L 143 mmol/L Potassium Level 2.9 mmol/L 4.1 mmol/L Chloride Level 112 mmol/L 112 mmol/L Carbon Dioxide Level 22 mmol/L 23 mmol/L Anion Gap 10.0 mmol/L 8.0 mmol/L Blood Urea Nitrogen 11 mg/dl 9 mg/dl Creatinine 0.49 mg/dl 0.62 mg/dl Est Creatinine Clear Calc Drug Dose 73.5 ml/min 58.1 ml/min Estimated GFR () 104.4 96.6 Estimated GFR (Non- 90.1 83.4 BUN/Creatinine Ratio 22.0 15.3 Random Glucose 107 mg/dl 116 mg/dl Calcium Level 7.4 mg/dl 7.5 mg/dl Magnesium Level 2.0 mg/dl Total Bilirubin 0.5 mg/dl Aspartate Amino Transf (AST/SGOT) 15 U/L Alanine Aminotransferase (ALT/SGPT) 11 U/L Alkaline Phosphatase 30 U/L Total Protein 4.4 gm/dl Albumin 2.4 gm/dl Globulin 2.0 gm/dl Albumin/Globulin Ratio 1.2 Bedside Glucose 98 mg/dl Telemetry reviewed: Remains in sinus rhythm for the past 24 hours Assessment and Plan #1. Paroxysmal atrial fibrillation: She appeared to have very frequent episodes of atrial fibrillation alternating with periods of sinus rhythm on admission, on IV amiodarone she remained in sinus rhythm predominantly with a few breakthroughs of atrial fibrillation. For the moment however we can't anticoagulate and I would recommend trying to keep in sinus rhythm, I would continue amiodarone which can take some time to be effective. That may not work over the long run but at least during the short term until we sort out her anticoagulation that may be the best option. #2. GI bleed: She has been on Plavix, evidently not on aspirin or an anticoagulant recently. Hopefully we can keep her from having recurrent ulceration. In that case she should not have a lot of risk from anticoagulation. #3. DVT: She does have a history of DVT, and probably should be on anticoagulation for that, although she does have a Jarrell filter in place. That gives her an additional thrombotic risk in addition to her risk of stroke, another reason to reconsider anticoagulation at a future date. #4. Anticoagulation status: At the moment I would agree with no anticoagulation , over the long run I would consider restarting one of the newer agents, probably Eliquis, once it is felt reasonably safe to do so per GI. I would be hesitant however to use combination therapy with anticoagulation and a platelet inhibitor. We can reduce her GI bleed risk from around 9% down to about 3% by stopping Plavix, with little change in her risk of stroke from atrial fibrillation and little change in her risk of DVT. Her risk of having a cardiac event is probably much lower than this. I will need to discuss anticoagulation with GI, that decision will hinge on whether they feel they can control her GI bleeding. Thank you for allowing me to participate in her care.
[2016-12-11] MEDS: PANTOprazole INJ 40 MG in DEXTROSE 5% 100ML IV SCH ×2 (01:05→05:38)
[2016-12-11 04:00] VITALS: BP 140/59; PULSE 71; TEMP 37.2; O2SAT 96
[2016-12-11] MEDS: LEVOTHYROXINE 75 MCG TAB PO SCH (05:37)
[2016-12-11 06:16] LABS: BASO % 0.2 %; BASO ABS # 0.02 K/uL (0-0.2); COMPLETE YES; EOS % 3.2 %; HEMATOCRIT 28.3 % (37-47); IG% 0.1 %; LYMPH % 16.6 %; LYMPH ABS # 1.34 K/uL (1.2-3.4); MEAN CELL VOLUME 91.3 fL (80-100); MEAN CORPUSCULAR HGB CONC 33.9 g/dl (32-36); MEAN PLATELET VOLUME 11.4 fL (7.4-10.4); MONO % 8.9 %; PLATELET COUNT 178 K/uL (130-400); WHITE BLOOD COUNT 8.05 K/uL (4.8-10.8)
[2016-12-11 06:47] LABS: ALB/GLOB RATIO 1.1 (0.9-2); BUN/CREATININE RATIO 14.8 (10-20); CALCIUM 7.5 mg/dl (8.5-10.1); CREATININE 0.54 mg/dl (0.60-1.20); POTASSIUM 3.4 mmol/L (3.5-5.1)
[2016-12-11 08:00] VITALS: BP 138/61; PULSE 70; TEMP 36.6; O2SAT 100
--- NOTE | 2016-12-11 08:19 | Medical Student: [facility] ---
Med Student Progress Note Date of Service Dec 11, 2016. Subjective Pt evaluation today including: conversation w/ patient, physical exam, chart review, lab review, review of studies Pt is an 81 year old female with a history of peptic ulcer disease, multiple myeloma, CABG, and Afib who is admitted for hematemesis related to 2 AVMs and a bleeding peptic ulcer, which were diagnosed and treated via EGD. She continues to feel improved. Her diet was advanced yesterday and she has eaten potatoes, soup, and fruit without nausea, vomiting, or abdominal pain. She had two loose BMs since yesterday. She was out of bed a few times yesterday. She denies chest pain, dyspnea, or palpitations. She reports that she has had diarrhea since July 2016, for which she had a recent CT and was scheduled to see a doctor in [place] (unsure of the name) prior to her admission, which was arranged by Dr. Maier. She says that her diarrhea was thought to be related to her chemotherapy for her multiple myeloma. Review of Systems Constitutional: + sweats, No fever Respiratory: No shortness of breath Cardiac: No chest pain, No palpitations Abdomen: + see HPI Female : No dysuria All Other Systems: Reviewed and Negative Objective Vital Signs Date Time Temp Pulse Resp B/P Pulse Ox O2 Delivery O2 Flow Rate FiO2 12/11/16 04:00 37.2 71 15 140/59 96 Room Air 12/11/16 04:00 96 Room Air 12/10/16 23:59 37.3 72 15 143/66 97 Room Air 12/10/16 23:59 97 Room Air 12/10/16 20:00 37.2 65 15 143/56 97 Room Air 12/10/16 20:00 97 Room Air 12/10/16 16:11 70 99 12/10/16 16:00 36.8 63 18 121/58 100 Room Air 12/10/16 16:00 Room Air 12/10/16 12:00 Room Air 12/10/16 12:00 37.1 63 12 146/57 99 Room Air 12/10/16 08:00 37.1 61 20 145/70 96 Room Air 12/10/16 08:00 Room Air Physical Exam General Appearance: + pertinent finding (Thin elderly female sitting up comfortably in bed, NAD. ) Eyes: bilateral eyes EOMI, bilateral eyes PERRL, bilateral eyes pertinent finding (Conjunctival pallor) ENT: hearing grossly normal Neck: supple, no carotid bruits, trachea midline Respiratory/Chest: lungs clear, normal breath sounds, no respiratory distress, no accessory muscle use Cardiovascular: regular rate, rhythm, no edema, no gallop, no JVD, + pertinent finding (1/6 systolic murmur at the R upper sternal border) Abdomen: normal bowel sounds, non tender, soft Extremities: non-tender, normal inspection, no pedal edema, normal capillary refill Neurologic/Psychiatric: inbound sales manager II-XII nml as tested, no motor/sensory deficits, alert, normal mood/affect, oriented x 3 Skin: normal color, warm/dry, no rash Laboratory Results Last 24 Hours Test 12/10/16 11:18 12/10/16 16:00 12/10/16 16:11 12/11/16 05:30 Bedside Glucose 98 mg/dl 115 mg/dl Sodium Level 143 mmol/L 144 mmol/L Potassium Level 4.1 mmol/L 3.4 mmol/L Chloride Level 112 mmol/L 113 mmol/L Carbon Dioxide Level 23 mmol/L 25 mmol/L Anion Gap 8.0 mmol/L 6.0 mmol/L Blood Urea Nitrogen 9 mg/dl 8 mg/dl Creatinine 0.62 mg/dl 0.54 mg/dl Est Creatinine Clear Calc Drug Dose 58.1 ml/min 66.7 ml/min Estimated GFR () 96.6 101.1 Estimated GFR (Non- 83.4 87.3 BUN/Creatinine Ratio 15.3 14.8 Random Glucose 116 mg/dl 93 mg/dl Calcium Level 7.5 mg/dl 7.5 mg/dl White Blood Count 8.05 K/uL Red Blood Count 3.10 M/uL Hemoglobin 9.6 g/dL Hematocrit 28.3 % Mean Corpuscular Volume 91.3 fL Mean Corpuscular Hemoglobin 31.0 pg Mean Corpuscular Hemoglobin Concent 33.9 g/dl Platelet Count 178 K/uL Mean Platelet Volume 11.4 fL Neutrophils (%) (Auto) 71.0 % Lymphocytes (%) (Auto) 16.6 % Monocytes (%) (Auto) 8.9 % Eosinophils (%) (Auto) 3.2 % Basophils (%) (Auto) 0.2 % Neutrophils # (Auto) 5.70 K/uL Lymphocytes # (Auto) 1.34 K/uL Monocytes # (Auto) 0.72 K/uL Eosinophils # (Auto) 0.26 K/uL Basophils # (Auto) 0.02 K/uL RDW Standard Deviation 49.0 fL RDW Coefficient of Variation 14.7 % Immature Granulocyte % (Auto) 0.1 % Immature Granulocyte # (Auto) 0.01 K/uL Magnesium Level 2.0 mg/dl Total Bilirubin 0.6 mg/dl Aspartate Amino Transf (AST/SGOT) 17 U/L Alanine Aminotransferase (ALT/SGPT) 11 U/L Alkaline Phosphatase 35 U/L Total Protein 4.9 gm/dl Albumin 2.6 gm/dl Globulin 2.3 gm/dl Albumin/Globulin Ratio 1.1 Chemistry Specimen Hemolysis Medications Medications Administered Medications (Trade) Dose Ordered Sig/Timo Route Start Time Stop Time Status Last Admin Dose Admin Octreotide Acetate (Sandostatin Iv Bolus & Drip) 1 ea NOW STAT IV 12/08/16 07:51 12/08/16 07:52 DC 12/08/16 08:27 1 EA Pantoprazole Sodium 1 ea 1 ea NOW STAT IV 12/08/16 07:51 12/08/16 07:52 DC 12/08/16 08:27 1 EA Sodium Chloride (Nss 1000ml) 1,000 ml @ 999 mls/hr Q1H1M STAT IV 12/08/16 07:51 12/09/16 08:20 DC 12/08/16 08:02 999 MLS/HR Ondansetron HCl 4 mg 4 mg NOW STAT IV 12/08/16 07:53 12/08/16 07:54 DC 12/08/16 08:02 4 MG Octreotide Acetate 100 mcg/ Syringe 10 ml @ 3 mls/min TODAY@0800 IV 12/08/16 08:00 12/08/16 10:00 DC 12/08/16 08:27 3 MLS/MIN Octreotide Acetate 500 mcg/ Sodium Chloride 105 ml @ 10 mls/hr [id number] IV 12/08/16 08:00 12/08/16 18:21 DC 12/08/16 08:27 10 MLS/HR Pantoprazole Sodium 40 mg/ Dextrose 100 ml @ 20 mls/hr Q5H IV 12/08/16 08:30 12/08/16 13:29 DC 12/08/16 08:27 20 MLS/HR Pantoprazole Sodium/Dextrose (Protonix Inj/D5 100ml) 120 ml @ 480 mls/hr TODAY@0800 IV 12/08/16 08:00 12/08/16 10:00 DC 12/08/16 08:27 480 MLS/HR Ceftriaxone Sodium (Rocephin Inj) 1 gm NOW STAT IV 12/08/16 08:34 12/08/16 08:35 DC 12/08/16 08:54 1 GM Metoclopramide HCl (Reglan Inj) 10 mg NOW STAT IV 12/08/16 08:38 12/08/16 08:39 DC 12/08/16 08:50 10 MG Miscellaneous (Rapid Sequence Induction Bag) 1 ea STK-MED ONCE N/A 12/08/16 08:41 12/08/16 08:43 DC 12/08/16 08:41 1 EA Etomidate (Amidate Inj) 20 mg 0848 STAT IV 12/08/16 08:48 12/08/16 08:50 DC 12/08/16 08:48 20 MG Succinylcholine Chloride (Quelicin Inj) 150 mg NOW STAT IV 12/08/16 08:48 12/08/16 08:50 DC 12/08/16 08:48 150 MG Vecuronium Wayne (Vecuronium Wayne Inj) 10 mg NOW STAT IV 12/08/16 08:48 12/08/16 08:50 DC 12/08/16 08:48 10 MG Propofol (Diprivan IV 100ML VIAL) 1 dose UD PRN IV 12/08/16 09:00 12/08/16 13:37 DC 12/08/16 09:22 1 DOSE Epinephrine HCl 1 mg 1 mg STK-MED ONCE .ROUTE 12/08/16 10:36 12/08/16 10:38 DC 12/08/16 10:07 0.4 MG Sodium Chloride (Nss 1000ml) 1,000 ml @ 45 mls/hr [id number] IV 12/08/16 11:33 12/09/16 08:02 DC 12/08/16 15:03 45 MLS/HR Morphine Sulfate (MoRPHine SULFATE INJ) 2 mg Q2H PRN IV 12/08/16 11:45 12/22/16 11:44 12/10/16 02:50 2 MG Cholecalciferol (Vitamin D Tab) 1,000 inter.unit DAILY PO 12/09/16 09:00 01/08/17 08:59 12/10/16 08:45 1,000 INTER.UNIT Levothyroxine Sodium (Synthroid Tab) 75 mcg DAILYBB PO 12/09/16 06:00 01/08/17 05:59 12/11/16 05:37 75 MCG Metoprolol Succinate (Toprol Xl Tab) 25 mg DAILY PO 12/09/16 09:00 01/08/17 08:59 12/10/16 08:45 25 MG Prednisone (PredniSONE TAB) 5 mg DAILY PO 12/09/16 09:00 01/08/17 08:59 12/10/16 08:45 5 MG Cinacalcet (Sensipar) 30 mg DAILY PO 12/09/16 09:00 01/08/17 08:59 12/10/16 08:45 30 MG Pravastatin Sodium 20 mg 20 mg MoWeFr@0900 PO 12/09/16 09:00 01/08/17 08:59 12/09/16 08:52 20 MG Pantoprazole Sodium 40 mg/ Dextrose 100 ml @ 20 mls/hr Q5H IV 12/08/16 13:30 01/07/17 13:29 12/11/16 05:38 20 MLS/HR Amiodarone HCL/ Dextrose 100 ml @ 600 mls/hr NOW ONCE IV 12/08/16 17:45 12/08/16 17:54 DC 12/08/16 18:26 600 MLS/HR Amiodarone HCL/ Dextrose 200 ml @ 33.3 mls/hr Q6H1M IV 12/08/16 18:00 12/09/16 00:00 DC 12/08/16 18:26 33.3 MLS/HR Amiodarone HCL/ Dextrose 200 ml @ 16.7 mls/hr [id number] IV 12/09/16 00:01 12/10/16 15:08 DC 12/10/16 02:54 16.7 MLS/HR Potassium Chloride 10 meq/ Prmx 100 ml @ 100 mls/hr Q1H IV 12/09/16 08:30 12/09/16 10:29 DC 12/09/16 10:33 100 MLS/HR Dextrose/Sodium Chloride (D5W And 1/2nss) 1,000 ml @ 40 mls/hr Q24H IV 12/09/16 08:00 12/10/16 14:12 DC 12/09/16 08:51 40 MLS/HR Hydrocortisone (Proctozone Hc 2.5% Crm) 1 appln BID EXT 12/09/16 21:00 01/08/17 20:59 12/10/16 21:56 1 APPLN Amiodarone HCl (Cordarone Tab) 400 mg BID PO 12/09/16 21:00 01/08/17 20:59 12/10/16 20:37 400 MG Potassium Chloride 40 meq 40 meq NOW STAT PO 12/10/16 07:28 12/10/16 08:02 DC 12/10/16 08:44 40 MEQ Potassium Chloride/Prmx (Kcl 10 Meq / Wtr/Premixed Water) 100 ml @ 100 mls/hr TODAY@0830,0930 IV 12/10/16 08:30 12/10/16 10:29 DC 12/10/16 11:13 100 MLS/HR Potassium Chloride (Klor-Con Tab) 20 meq NOW ONCE PO 12/10/16 12:15 12/10/16 12:17 DC 12/10/16 12:50 20 MEQ Assessment and Plan Assessment and Plan: GI Bleeding - Hemostasis of 2 angiectasias and peptic ulcer was achieved via endoscopy. No further hematemesis. Pt received 2 units of blood as well as a total of 6 packs of platelets due to her being on Plavix. - Plan to switch to PO Protonix as she has been on IV for 72 hours today. - Continue to advance diet as tolerated. -Continue to hold Plavix and ASA at this time. Plan for discharge on Eliquis due to lower risk of bleeding recurrence per GI and Cardiology recommendation. Chronic diarrhea - Plan to follow up as an outpatient with GI regarding recent CT that was done through [facility]. Anemia - Hb today is 9.6 today, stable. - Continue to monitor daily H&H. Elevated troponin, peaked at 0.122 - Likely due to demand ischemia secondary to rapid Afib, which has improved with amiodarone drip, as well as anemia, which was treated with transfusion. Afib with RVR - Pt has remained in NSR with amiodarone drip. - Continue PO amiodarone 400 mg bid. -Continue PO metoprolol succinate 25 mg daily. - Plan to restart home verapamil upon discharge. Elevated WBC, resolved - This was likely secondary to stress from the GI bleed as well as steroids. No signs of infection, pt has been afebrile. Electrolyte abnormalities - Na has normalized to 144. Continued hypokalemia with K of 3.4. - Will continue potassium 40 mEq PO. - Plan to discontinue IVF today. Multiple myeloma - Pt is followed for this by Dr. Marquez. No chemotherapy is planned. Pt reports that she gets acyclovir daily for prophylaxis, which she would like to restart. -Will give acyclovir given normal renal function. Hyperthyroidism - TSH 0.271. - Continue levothyroxine. Hyperparathyroidism - Consider home Cinacalcet. Hypercholesterolemia - Continue home pravastatin. DVT prophylaxis - SCD's in place. No chemical anticoagulation at this time s/p GI bleed. Back pain - Give morphine 2 mg q2h prn and reposition.
[2016-12-11] MEDS ORDERED: POTASSIUM CHLORIDE 10 MEQ TABCR PO ONE (08:30)
[2016-12-11] MEDS: AMIODARONE 200 MG TAB PO SCH ×2 (09:04→20:54)
[2016-12-11] MEDS: POTASSIUM CHLORIDE 20 MEQ TABCR PO SCH (09:04)
[2016-12-11] MEDS: HYDROCORTISONE HC 2.5% CRM 30GM TUBE EXT SCH ×2 (09:04→20:54)
[2016-12-11] MEDS: CHOLECALCIFEROL 1000 INTER.UNIT TAB PO SCH (09:05)
[2016-12-11] MEDS: PRAVASTATIN SOD 20 MG TAB PO SCH (09:05)
[2016-12-11] MEDS: METOPROLOL SUCC 25MG EXT REL TAB PO SCH (09:05)
[2016-12-11] MEDS: CINACALCET 30 MG TAB PO SCH (09:05)
--- NOTE | 2016-12-11 09:40 | Gastroenterology Progress Note ---
Progress Note Date of Service: Dec 11, 2016 Subjective Pt evaluation today including: conversation w/ patient, physical exam, lab review, review of studies, review of inpatient medication list Patient reports continued improvement with more energy and increased appetite. Tolerating a regular AHA diet. She verbalizes improved sleep last night. H&H has been stable at 9.6 and 28.3. Continues PPI ggt. No abdominal pain, nausea or vomiting or melena. Review of Systems Constitutional: + see HPI Abdomen: + see HPI Medications Current Inpatient Medications Medications (Trade) Dose Ordered Sig/Timo Route Start Time Stop Time Status Last Admin Dose Admin Lorazepam (Ativan Inj) 0.5 mg Q4H PRN IV 12/08/16 11:45 01/07/17 11:44 Morphine Sulfate (MoRPHine SULFATE INJ) 2 mg Q2H PRN IV 12/08/16 11:45 12/22/16 11:44 12/10/16 02:50 2 MG Cholecalciferol (Vitamin D Tab) 1,000 inter.unit DAILY PO 12/09/16 09:00 01/08/17 08:59 12/11/16 09:05 1,000 INTER.UNIT Levothyroxine Sodium (Synthroid Tab) 75 mcg DAILYBB PO 12/09/16 06:00 01/08/17 05:59 12/11/16 05:37 75 MCG Metoprolol Succinate (Toprol Xl Tab) 25 mg DAILY PO 12/09/16 09:00 01/08/17 08:59 12/11/16 09:05 25 MG Prednisone (PredniSONE TAB) 5 mg DAILY PO 12/09/16 09:00 01/08/17 08:59 12/11/16 09:05 5 MG Cinacalcet (Sensipar) 30 mg DAILY PO 12/09/16 09:00 01/08/17 08:59 12/11/16 09:05 30 MG Pravastatin Sodium 20 mg 20 mg MoWeFr@0900 PO 12/09/16 09:00 01/08/17 08:59 12/11/16 09:05 20 MG Pantoprazole Sodium/Dextrose (Protonix Inj/D5 100ml) 100 ml @ 20 mls/hr Q5H IV 12/08/16 13:30 01/07/17 13:29 12/11/16 05:38 20 MLS/HR Hydrocortisone (Proctozone Hc 2.5% Crm) 1 appln BID EXT 12/09/16 21:00 01/08/17 20:59 12/11/16 09:04 1 APPLN Amiodarone HCl (Cordarone Tab) 400 mg BID PO 12/09/16 21:00 01/08/17 20:59 12/11/16 09:04 400 MG Potassium Chloride (Klor-Con Tab) 20 meq QAM PO 12/11/16 09:00 01/10/17 08:59 12/11/16 09:04 20 MEQ Objective Vital Signs Date Time Temp Pulse Resp B/P Pulse Ox O2 Delivery O2 Flow Rate FiO2 12/11/16 04:00 37.2 71 15 140/59 96 Room Air 12/11/16 04:00 96 Room Air 12/10/16 23:59 37.3 72 15 143/66 97 Room Air 12/10/16 23:59 97 Room Air 12/10/16 20:00 37.2 65 15 143/56 97 Room Air 12/10/16 20:00 97 Room Air 12/10/16 16:11 70 99 12/10/16 16:00 36.8 63 18 121/58 100 Room Air 12/10/16 16:00 Room Air 12/10/16 12:00 Room Air 12/10/16 12:00 37.1 63 12 146/57 99 Room Air Physical Exam General Appearance: no apparent distress Eyes: EOMI Abdomen: normal bowel sounds, non tender, soft Neurologic/Psych: alert, normal mood/affect, oriented x 3 Laboratory Results Last 24 Hours Test 12/10/16 11:18 12/10/16 16:00 12/10/16 16:11 12/11/16 05:30 Bedside Glucose 98 mg/dl 115 mg/dl Sodium Level 143 mmol/L 144 mmol/L Potassium Level 4.1 mmol/L 3.4 mmol/L Chloride Level 112 mmol/L 113 mmol/L Carbon Dioxide Level 23 mmol/L 25 mmol/L Anion Gap 8.0 mmol/L 6.0 mmol/L Blood Urea Nitrogen 9 mg/dl 8 mg/dl Creatinine 0.62 mg/dl 0.54 mg/dl Est Creatinine Clear Calc Drug Dose 58.1 ml/min 66.7 ml/min Estimated GFR () 96.6 101.1 Estimated GFR (Non- 83.4 87.3 BUN/Creatinine Ratio 15.3 14.8 Random Glucose 116 mg/dl 93 mg/dl Calcium Level 7.5 mg/dl 7.5 mg/dl White Blood Count 8.05 K/uL Red Blood Count 3.10 M/uL Hemoglobin 9.6 g/dL Hematocrit 28.3 % Mean Corpuscular Volume 91.3 fL Mean Corpuscular Hemoglobin 31.0 pg Mean Corpuscular Hemoglobin Concent 33.9 g/dl Platelet Count 178 K/uL Mean Platelet Volume 11.4 fL Neutrophils (%) (Auto) 71.0 % Lymphocytes (%) (Auto) 16.6 % Monocytes (%) (Auto) 8.9 % Eosinophils (%) (Auto) 3.2 % Basophils (%) (Auto) 0.2 % Neutrophils # (Auto) 5.70 K/uL Lymphocytes # (Auto) 1.34 K/uL Monocytes # (Auto) 0.72 K/uL Eosinophils # (Auto) 0.26 K/uL Basophils # (Auto) 0.02 K/uL RDW Standard Deviation 49.0 fL RDW Coefficient of Variation 14.7 % Immature Granulocyte % (Auto) 0.1 % Immature Granulocyte # (Auto) 0.01 K/uL Magnesium Level 2.0 mg/dl Total Bilirubin 0.6 mg/dl Aspartate Amino Transf (AST/SGOT) 17 U/L Alanine Aminotransferase (ALT/SGPT) 11 U/L Alkaline Phosphatase 35 U/L Total Protein 4.9 gm/dl Albumin 2.6 gm/dl Globulin 2.3 gm/dl Albumin/Globulin Ratio 1.1 Chemistry Specimen Hemolysis Assessment and Plan Patient is a 81 year old female with a history of multiple myeloma and PUD presenting with weakness, hematemesis, and acute blood loss anemia with findings of bleeding AVM and gastric ulcer status post hemostasis during endoscopy yesterday. 1. Continue Protonix ggt at 8 mg/hr for today but would recommend starting Protonix 40 mg BID at 2100 tonight as it will be 72 hours this evening. 2. Supportive care via primary team. Agree with OSCAR Simpson as above Abd: Soft, NT, ND, +BS Protonix 40mg PO BID starting tonight. Discussed risk of bleeding with Anticoagulation with Dr. Irwin of Hospitalist service. He will discuss further with cardiology.
--- NOTE | 2016-12-11 09:50 | Hospitalist Progress Note ---
Hospitalist Progress Note Date of Service Dec 11, 2016. Subjective Pt evaluation today including: conversation w/ patient, conversation w/ family , physical exam, chart review, lab review, review of studies, review of inpatient medication list Pain: None PO Intake: Good Voiding: rudolph catheter in place The patient was seen and examined this morning. Pt reports feeling much better today. She is alert and awake without acute complaints. She reports feeling like she has a loose bowel movement every time after she is eating. She is tolerating a regular diet without difficulty. Denies abd pain, n/v/c. She has been working with PT/OT and was out of bed into the chair yesterday for abour 3 hours total. Her son, Cecilio, is present at bedside and discussion regarding anticoagulation and placement/rehab was held- his main concerns are regarding being discharged to [facility]- he now would like to have referral to [facility] placed. CM came in during assessment and plans to place a referal. All his questions and concerns were answered. Constitutional: + chills, + fever, + sweats ENT: No nasal symptoms, No sore throat, No tinnitus Respiratory: No cough, No shortness of breath, No sputum, No wheezing Cardiovascular: No chest pain, No orthopnea, No palpitations Abdomen: No constipation, No diarrhea, No nausea, No pain, No vomiting Musculoskeletal: No muscle pain, No swelling Neurologic: No numbness/tingling, No weakness Skin: No itch, No rash Objective Vital Signs Date Time Temp Pulse Resp B/P Pulse Ox O2 Delivery O2 Flow Rate FiO2 12/11/16 04:00 37.2 71 15 140/59 96 Room Air 12/11/16 04:00 96 Room Air 12/10/16 23:59 37.3 72 15 143/66 97 Room Air 12/10/16 23:59 97 Room Air 12/10/16 20:00 37.2 65 15 143/56 97 Room Air 12/10/16 20:00 97 Room Air 12/10/16 16:11 70 99 12/10/16 16:00 36.8 63 18 121/58 100 Room Air 12/10/16 16:00 Room Air 12/10/16 12:00 Room Air 12/10/16 12:00 37.1 63 12 146/57 99 Room Air 12/10/16 08:00 37.1 61 20 145/70 96 Room Air 12/10/16 08:00 Room Air Physical Exam Notes: Vital Signs - as noted below Laboratory Data - as noted below Physical Exam: General - NAD, appears brighter today Eyes - No icterus, gaze conjugate. ENT - Mucosa moist, no lesions or candidiasis Neck - Supple, No JVD Lungs - No bronchospasm, rales, or rhonchi. Heart - Regular, rate controlled Abdomen - Soft, NT, ND, BS present Extremities - No edema, pedal pulses intact Neuro - A&OX3 Laboratory Results Last 24 Hours Test 12/10/16 11:18 12/10/16 16:00 12/10/16 16:11 12/11/16 05:30 Bedside Glucose 98 mg/dl 115 mg/dl Sodium Level 143 mmol/L 144 mmol/L Potassium Level 4.1 mmol/L 3.4 mmol/L Chloride Level 112 mmol/L 113 mmol/L Carbon Dioxide Level 23 mmol/L 25 mmol/L Anion Gap 8.0 mmol/L 6.0 mmol/L Blood Urea Nitrogen 9 mg/dl 8 mg/dl Creatinine 0.62 mg/dl 0.54 mg/dl Est Creatinine Clear Calc Drug Dose 58.1 ml/min 66.7 ml/min Estimated GFR () 96.6 101.1 Estimated GFR (Non- 83.4 87.3 BUN/Creatinine Ratio 15.3 14.8 Random Glucose 116 mg/dl 93 mg/dl Calcium Level 7.5 mg/dl 7.5 mg/dl White Blood Count 8.05 K/uL Red Blood Count 3.10 M/uL Hemoglobin 9.6 g/dL Hematocrit 28.3 % Mean Corpuscular Volume 91.3 fL Mean Corpuscular Hemoglobin 31.0 pg Mean Corpuscular Hemoglobin Concent 33.9 g/dl Platelet Count 178 K/uL Mean Platelet Volume 11.4 fL Neutrophils (%) (Auto) 71.0 % Lymphocytes (%) (Auto) 16.6 % Monocytes (%) (Auto) 8.9 % Eosinophils (%) (Auto) 3.2 % Basophils (%) (Auto) 0.2 % Neutrophils # (Auto) 5.70 K/uL Lymphocytes # (Auto) 1.34 K/uL Monocytes # (Auto) 0.72 K/uL Eosinophils # (Auto) 0.26 K/uL Basophils # (Auto) 0.02 K/uL RDW Standard Deviation 49.0 fL RDW Coefficient of Variation 14.7 % Immature Granulocyte % (Auto) 0.1 % Immature Granulocyte # (Auto) 0.01 K/uL Magnesium Level 2.0 mg/dl Total Bilirubin 0.6 mg/dl Aspartate Amino Transf (AST/SGOT) 17 U/L Alanine Aminotransferase (ALT/SGPT) 11 U/L Alkaline Phosphatase 35 U/L Total Protein 4.9 gm/dl Albumin 2.6 gm/dl Globulin 2.3 gm/dl Albumin/Globulin Ratio 1.1 Chemistry Specimen Hemolysis Assessment and Plan This is an 81 yo F with PMHx of Multiple myeloma, peptic ulcer disease, external hemorrhoids with BRBPR, chronic diarrhea, s/p MO, CAD s/p CABG, paroxysmal afib, HTN, dyslipidemia, hyperparathyroidism, hypothyroidism, who has been following Dr. Maier with gastroenterology as an outpatient. The patient underwent emergent EGD found to have 2 bleeding vessels, and 1 nonbleeding ulcer. Pt was admitted to the ICU after EGD for acute GI bleed management. GI Bleed/ Peptic Ulcer disease/ Chronic Diarrhea/ External Hemorrhoids - Transfer to [facility] pending bed availability - Pt was urgently taken to the OR s/p increasing weakness and multiple episodes of hematemesis and hematchezia by GI. - Intubation performed in ED due to airway compromise with hematemesis and risk for aspiration, was successfully extubated 12/08 - Pt follows with Dr. Maier as an outpatient - GI on board. - Switch to oral protonix tonight since pt has been on protonix IV x 3 days after this morning dose. - VSS, currently BP are stabilized with MAP >65. - Tolerating normal diet - Pt received 6 U platelets prior to surg. - S/p 2 U PRBCs 01/09 for hbg drop to 7.2- responded appropriately to 9.8 - trending back up to 9.6 today - follow H&H with am labs, stable - Troponin I initially negative, then bumped to 0.122 --> 0.102: due to demand ischemia with afib - Per operative note: EGD showed avascular malformation x 2 and 1 ulceration which was cauterized with epinephrine CAD s/p CABG x 3 Paroxysmal Atrial fibrillation - amiodarone gtt off, transitioned to oral 400 mg BID yesterday - Pt was previously admitted in Nov 2014 for melena, found to have a popliteal DVT and was started on lovenox and coumadin, then transitioned to plavix for anticoagulation as this reduced the risk or ulcers compared to coumadin or asa, with her pmhx of peptic ulcers - Continue to HOLD asa and plavix. - Consult cardiology for anticoagulation recommendations appreciated Will ask GI and cards to determine when anticoagulation should resume. Looking at starting eloquis in the future for anticoagulation with decreased risk of GI bleed. - Discussion was held with pts son, Cecilio, at bedside regarding anticoagulation and all his questions and concerns were answered. Hypokalemia - Received a total of 20 meq IV, and then 60 meq orally throughout the day yesterday with improvement to 4.1, again this morning is 3.4. - Start daily dose of 20 meq at baseline today to keep up with electrolyte loss - reassess as needed. HTN - Cont verapamil 240 mg PO HS - Cont metoprolol succinate 25 mg daily Dyslipidemia - Cont [employer] pravastatin MW Multiple Myeloma - Stable plasma dyscrasia, stage II. Followed by Dr. Marquez - Received Zometa monthly last in Sep 2016, plan for no chemotherapy at this time - Follows with Dr. Rashid with [facility] Hyperparathyroidism - Cont [employer] sensispar 30 mg daily Hypothyroidism - Cont levothyroxine 75 mcg daily - TSH level checked = 0.271 DVT ppx: no chemical anticoagulation with GI bleed, SCDs, teds CODE STATUS: Full Code, no mechanical ventilation Disposition: Transition out of the ICU to tele today ( no beds available yesterday), From home, lives with whom she takes care of, will ask CM to assist with discharge planning.
--- NOTE | 2016-12-11 11:30 | Cardiology Follow-Up ---
Subjective Date of Service: Dec 11, 2016. Pt evaluation today including: conversation w/ patient, conversation w/ family , physical exam, lab review, review of studies, review of inpatient medication list, conversation w/ attending History of Present Illness With her bleeding we have withheld anticoagulation, and she is not on platelet inhibitors. She was on Plavix prior to admission and that is probably still somewhat active. We started amiodarone in hopes of controlling her atrial arrhythmia to minimize the risk of stroke without anticoagulation (although that is not necessarily going to prevent it as there is some residual thrombotic risk after termination of atrial fibrillation). She was on intravenous amiodarone for about 48 hours with a 24-hour overlap with oral. She is now on oral amiodarone 400 mg twice a day. She seems to be tolerating it well. She is feeling much better today, she has no specific complaints. She is sitting at her bedside and looks much better as well. She denies palpitations. Social History Smoking Status: Never Smoker History of Alcohol Use: No Review of Systems Respiratory: No cough, No shortness of breath, No sputum, No wheezing Cardiac: No chest pain, No orthopnea, No palpitations Medications Cardiovascular: Item Value Date Time Potassium Chloride 20 meq 12/11/16 0900 (Klor-Con Tab) QAM/PO 12/11/16 0904 Amiodarone HCl 400 mg 12/09/16 2100 (Cordarone Tab) BID/PO 12/11/16 0904 Metoprolol 25 mg 12/09/16 0900 Succinate DAILY/PO 12/11/16 0905 (Toprol Xl Tab) Pravastatin Sodium 20 mg 12/09/16 0900 (Pravachol Tab) MoWeFr@0900/PO 12/11/16 0905 Objective Vital Signs Past 12 Hours Date Time Temp Pulse Resp B/P Pulse Ox O2 Delivery O2 Flow Rate FiO2 12/11/16 08:00 100 Room Air 12/11/16 08:00 36.6 70 16 138/61 100 Room Air 12/11/16 04:00 37.2 71 15 140/59 96 Room Air 12/11/16 04:00 96 Room Air 12/10/16 23:59 37.3 72 15 143/66 97 Room Air 12/10/16 23:59 97 Room Air Last Recorded Weight-Kilograms: 60.600 Intake & Output 8-Hour Column 12/10/16 12/11/16 12/11/16 16:00 00:00 08:00 Intake Total 720 ml 222 ml 149 ml Output Total 975 ml 650 ml 1125 ml Balance -255 ml -428 ml -976 ml 24-Hour Column 12/11/16 08:00 Intake Total 1091 ml Output Total 2750 ml Balance -1659 ml Physical Exam Constitutional: Level of Distress: NAD Lungs: Respiratory effort: good air movement Auscultation: breath sounds normal, no wheezing, no rales/crackles, pertinent finding Cardiovascular: Heart Auscultation: RRR, normal S1, normal S2, no murmurs Peripheral Pulses: Bruits: none appreciated Data Laboratory Results: Last 24 Hours Test 12/10/16 11:18 12/10/16 16:00 12/10/16 16:11 12/11/16 05:30 Bedside Glucose 98 mg/dl 115 mg/dl Sodium Level 143 mmol/L 144 mmol/L Potassium Level 4.1 mmol/L 3.4 mmol/L Chloride Level 112 mmol/L 113 mmol/L Carbon Dioxide Level 23 mmol/L 25 mmol/L Anion Gap 8.0 mmol/L 6.0 mmol/L Blood Urea Nitrogen 9 mg/dl 8 mg/dl Creatinine 0.62 mg/dl 0.54 mg/dl Est Creatinine Clear Calc Drug Dose 58.1 ml/min 66.7 ml/min Estimated GFR () 96.6 101.1 Estimated GFR (Non- 83.4 87.3 BUN/Creatinine Ratio 15.3 14.8 Random Glucose 116 mg/dl 93 mg/dl Calcium Level 7.5 mg/dl 7.5 mg/dl White Blood Count 8.05 K/uL Red Blood Count 3.10 M/uL Hemoglobin 9.6 g/dL Hematocrit 28.3 % Mean Corpuscular Volume 91.3 fL Mean Corpuscular Hemoglobin 31.0 pg Mean Corpuscular Hemoglobin Concent 33.9 g/dl Platelet Count 178 K/uL Mean Platelet Volume 11.4 fL Neutrophils (%) (Auto) 71.0 % Lymphocytes (%) (Auto) 16.6 % Monocytes (%) (Auto) 8.9 % Eosinophils (%) (Auto) 3.2 % Basophils (%) (Auto) 0.2 % Neutrophils # (Auto) 5.70 K/uL Lymphocytes # (Auto) 1.34 K/uL Monocytes # (Auto) 0.72 K/uL Eosinophils # (Auto) 0.26 K/uL Basophils # (Auto) 0.02 K/uL RDW Standard Deviation 49.0 fL RDW Coefficient of Variation 14.7 % Immature Granulocyte % (Auto) 0.1 % Immature Granulocyte # (Auto) 0.01 K/uL Magnesium Level 2.0 mg/dl Total Bilirubin 0.6 mg/dl Aspartate Amino Transf (AST/SGOT) 17 U/L Alanine Aminotransferase (ALT/SGPT) 11 U/L Alkaline Phosphatase 35 U/L Total Protein 4.9 gm/dl Albumin 2.6 gm/dl Globulin 2.3 gm/dl Albumin/Globulin Ratio 1.1 Chemistry Specimen Hemolysis Telemetry reviewed: No atrial fibrillation for about 48 hours, that episode was brief Assessment and Plan #1. Paroxysmal atrial fibrillation: She appeared to have very frequent episodes of atrial fibrillation alternating with periods of sinus rhythm on admission, on IV amiodarone she remained in sinus rhythm predominantly with a few breakthroughs of atrial fibrillation. For the moment however we can't anticoagulate and I would recommend trying to keep in sinus rhythm, I would continue amiodarone which seems to be effective. That may not work over the long run but at least during the short term until we sort out her anticoagulation that may be the best option. When she leaves the hospital I would reduce her dose to 200 mg twice a day. #2. GI bleed: She has been on Plavix, evidently not on aspirin or an anticoagulant recently. Hopefully we can keep her from having recurrent ulceration. In that case she should not have a lot of risk from anticoagulation. #3. DVT: She does have a history of DVT, and probably should be on anticoagulation for that, although she does have a Berwind filter in place. That gives her an additional thrombotic risk in addition to her risk of stroke, another reason to reconsider anticoagulation at a future date. #4. Anticoagulation status: At the moment I would agree with no anticoagulation , over the long run I would consider restarting one of the newer agents, probably Eliquis, once it is felt reasonably safe to do so per GI. I would be hesitant however to use combination therapy with anticoagulation and a platelet inhibitor even though she has some indication for aspirin, the risk is too great for platelet inhibitor. We can reduce her GI bleed risk from around 9% down to about 3% by stopping Plavix, with little change in her risk of stroke from atrial fibrillation and little change in her risk of DVT. Her risk of having a cardiac event is probably much lower than this. I will need to discuss anticoagulation with GI, that decision will hinge on whether they feel they can control her GI bleeding. If so we should consider starting anticoagulation in the future, it may be reasonable to do some type of surveillance (stool Hemoccult or repeat endoscope) to see whether she has recurrent ulceration before starting anticoagulation. Thank you for allowing me to participate in her care.
[2016-12-11 12:00] VITALS: BP 137/55; PULSE 63; TEMP 36.9; O2SAT 99
--- NOTE | 2016-12-11 12:01 | Oncology Consultation ---
Oncology/Heme Consultation Date of Consultation: Dec 11, 2016. Attending Physician: Christoph Irwin MD, PhD Reason for Consultation: History of multiple myeloma History of Present Illness Ms. 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 She has been off therapy for well over a year. Her protein studies are quite stable and remained that way. She is admitted now with hematemesis. She denies any new bone pain shortness of breath weight loss or chest pain. Her chemistries have remained stable. Past Medical/Surgical History Medical Problems: (1) Upper GI bleed Status: Acute Family History Diabetes Hypertension Social History Smoking Status: Never Smoker Drug Use: none Housing Status: lives with significant other Occupation Status: retired Allergies Coded Allergies: Aspartame (Verified Allergy, Mild, 12/08/16) Shellfish (Verified Allergy, Mild, 12/08/16) Ciprofloxacin (Verified Allergy, Unknown, ., 12/08/16) Iodinated Diagnostic Agents (Verified Allergy, Unknown, Unknown, 12/08/16) Nitrofurantoin (Verified Allergy, Unknown, Unknown, 12/08/16) Quinolones (Verified Allergy, Unknown, CIPRO, 12/08/16) Sulfa Antibiotics (Verified Allergy, Unknown, Unknown, 12/08/16) Home Medications Scheduled Cholecalciferol (Vitamin D 1000 Unit), 1,000 INTER.UNIT PO DAILY Cinacalcet (Sensipar), 30 MG PO DAILY Clopidogrel (Plavix), 75 MG PO DAILY Diphenoxylate/Atropine (Lomotil), 1 TAB PO prn Levothyroxine Sodium (Synthroid), 75 MCG PO DAILY Metoprolol Succinate (Toprol Xl), 25 MG PO DAILY Pantoprazole (Protonix), 40 MG PO DAILY Potassium Ext Rel (Klor-Con), 20 MEQ PO DAILY Pravastatin (Pravachol ), 20 MG PO MWF Prednisone (Prednisone), 5 MG PO DAILY Verapamil Hcl (Verapamil Hcl Er), 240 MG PO HS Miscellaneous Medications Nitroglycerin (Intra-Anal) (Rectiv) Current Inpatient Medications Current Inpatient Medications Medications (Trade) Dose Ordered Sig/Timo Route Start Time Stop Time Status Last Admin Dose Admin Lorazepam (Ativan Inj) 0.5 mg Q4H PRN IV 12/08/16 11:45 01/07/17 11:44 Morphine Sulfate (MoRPHine SULFATE INJ) 2 mg Q2H PRN IV 12/08/16 11:45 12/22/16 11:44 12/10/16 02:50 2 MG Cholecalciferol (Vitamin D Tab) 1,000 inter.unit DAILY PO 12/09/16 09:00 01/08/17 08:59 12/11/16 09:05 1,000 INTER.UNIT Levothyroxine Sodium (Synthroid Tab) 75 mcg DAILYBB PO 12/09/16 06:00 01/08/17 05:59 12/11/16 05:37 75 MCG Metoprolol Succinate (Toprol Xl Tab) 25 mg DAILY PO 12/09/16 09:00 01/08/17 08:59 12/11/16 09:05 25 MG Prednisone (PredniSONE TAB) 5 mg DAILY PO 12/09/16 09:00 01/08/17 08:59 12/11/16 09:05 5 MG Cinacalcet (Sensipar) 30 mg DAILY PO 12/09/16 09:00 01/08/17 08:59 12/11/16 09:05 30 MG Pravastatin Sodium (Pravachol Tab) 20 mg MoWeFr@0900 PO 12/09/16 09:00 01/08/17 08:59 12/11/16 09:05 20 MG Hydrocortisone (Proctozone Hc 2.5% Crm) 1 appln BID EXT 12/09/16 21:00 01/08/17 20:59 12/11/16 09:04 1 APPLN Amiodarone HCl (Cordarone Tab) 400 mg BID PO 12/09/16 21:00 01/08/17 20:59 12/11/16 09:04 400 MG Potassium Chloride (Klor-Con Tab) 20 meq QAM PO 12/11/16 09:00 01/10/17 08:59 12/11/16 09:04 20 MEQ Pantoprazole Sodium (Protonix Tab) 40 mg BID PO 12/11/16 21:00 01/10/17 20:59 Lactobacillus Acidophilus (Floranex Tab) 4 tab TIDM PO 12/11/16 11:30 01/10/17 11:29 Review of Systems Constitutional: Negative for, night sweats, or fever Eyes: Negative for event change of vision ENT: Negative for epistaxis, nasal discharge, sore throat, or deafness Cardiovascular: Negative for chest pain, palpitations, dizziness, diaphoresis Respiratory: Negative for new shortness of breath,hemoptysis, or purulent cough Gastrointestinal: Positive for diarrhea recently and now hematemesis. Integumentary (skin): Negative for rash or jaundice discoloration Genitourinary: Negative for urinary frequency, hematuria, or dysuria Neurological: Negative for weakness, seizure activity, headache, or dizziness Lymphatic/Hematologic: Negative for petechiae, bleeding or new adenopathy Musculoskeletal: Negative for new joint or back pain Allergic/Immunologic: Negative for unusual rash or pruritis. Physical Exam Date Time Temp Pulse Resp B/P Pulse Ox O2 Delivery O2 Flow Rate FiO2 12/11/16 08:00 100 Room Air 12/11/16 08:00 36.6 70 16 138/61 100 Room Air 12/11/16 04:00 37.2 71 15 140/59 96 Room Air 12/11/16 04:00 96 Room Air 12/10/16 23:59 37.3 72 15 143/66 97 Room Air 12/10/16 23:59 97 Room Air 12/10/16 20:00 37.2 65 15 143/56 97 Room Air 12/10/16 20:00 97 Room Air 12/10/16 16:11 70 99 12/10/16 16:00 36.8 63 18 121/58 100 Room Air 12/10/16 16:00 Room Air 12/10/16 12:00 Room Air 12/10/16 12:00 37.1 63 12 146/57 99 Room Air Constitutional: vitals are stable. Eyes: Eyes are DYANA EOMI without conjuctival erythema or icterus. ENT: External examination was negative for masses. Neck: Negative for masses or palpable thyromegaly Respiratory: Lung sounds were generally clear bilaterally Cardiovascular: Heart was RRR without significant murmur, gallops aoe rubs Gastrointestinal: No palpable hepatic or splenomegaly. The abdomen was soft with normal bowel sounds. Lymphatic system: there was no palpable peripheral lymphadenopathy Musculoskeletal System: The musculoskeletal system seemed concordant with age. Skin: The skin was negative for jaundice. Neurologic exam: The exam was negative for any focal findings. Deep tendon reflexes were equal and symmetrical. Psychiatric exam: Was essentially negative with normal mood and effect. Breast exam: Not done today Extremities: Negative for edema erythema Laboratory Results Last 24 Hours Test 12/10/16 16:00 12/10/16 16:11 12/11/16 05:30 Sodium Level 143 mmol/L 144 mmol/L Potassium Level 4.1 mmol/L 3.4 mmol/L Chloride Level 112 mmol/L 113 mmol/L Carbon Dioxide Level 23 mmol/L 25 mmol/L Anion Gap 8.0 mmol/L 6.0 mmol/L Blood Urea Nitrogen 9 mg/dl 8 mg/dl Creatinine 0.62 mg/dl 0.54 mg/dl Est Creatinine Clear Calc Drug Dose 58.1 ml/min 66.7 ml/min Estimated GFR () 96.6 101.1 Estimated GFR (Non- 83.4 87.3 BUN/Creatinine Ratio 15.3 14.8 Random Glucose 116 mg/dl 93 mg/dl Calcium Level 7.5 mg/dl 7.5 mg/dl Bedside Glucose 115 mg/dl White Blood Count 8.05 K/uL Red Blood Count 3.10 M/uL Hemoglobin 9.6 g/dL Hematocrit 28.3 % Mean Corpuscular Volume 91.3 fL Mean Corpuscular Hemoglobin 31.0 pg Mean Corpuscular Hemoglobin Concent 33.9 g/dl Platelet Count 178 K/uL Mean Platelet Volume 11.4 fL Neutrophils (%) (Auto) 71.0 % Lymphocytes (%) (Auto) 16.6 % Monocytes (%) (Auto) 8.9 % Eosinophils (%) (Auto) 3.2 % Basophils (%) (Auto) 0.2 % Neutrophils # (Auto) 5.70 K/uL Lymphocytes # (Auto) 1.34 K/uL Monocytes # (Auto) 0.72 K/uL Eosinophils # (Auto) 0.26 K/uL Basophils # (Auto) 0.02 K/uL RDW Standard Deviation 49.0 fL RDW Coefficient of Variation 14.7 % Immature Granulocyte % (Auto) 0.1 % Immature Granulocyte # (Auto) 0.01 K/uL Magnesium Level 2.0 mg/dl Total Bilirubin 0.6 mg/dl Aspartate Amino Transf (AST/SGOT) 17 U/L Alanine Aminotransferase (ALT/SGPT) 11 U/L Alkaline Phosphatase 35 U/L Total Protein 4.9 gm/dl Albumin 2.6 gm/dl Globulin 2.3 gm/dl Albumin/Globulin Ratio 1.1 Chemistry Specimen Hemolysis Assessment & Plan Hematemesis secondary to GI ulceration. She reviews with me that this happened once before about 2 years ago Smoldering myeloma IgG kappa. Her protein studies are remaining stable and she is been away from cytoreductive therapy for now over a year. She was due for a dose of Zometa in our clinic recently. This will be delayed of course for perhaps another month. We have been delivering this to her every other month. Her chemistries are stable. With that then we have little to contribute to her care while she is hospitalized. We will rearrange her visit in our clinic to occur in about one month. Thank you for this consultation. Please reconsult if necessary and thank you for notifying us of her admission
[2016-12-11] MEDS: LACTOBACILLUS ACIDOPHILUS (FLORANEX) TAB PO SCH ×2 (12:09→16:12)
[2016-12-11 16:00] VITALS: BP 142/59; PULSE 65; TEMP 37.2; O2SAT 99
[2016-12-11 20:00] VITALS: BP 146/57; PULSE 65; TEMP 37; O2SAT 98
[2016-12-11] MEDS: PANTOprazole SOD 40 MG TAB PO SCH (20:54)
[2016-12-12] VITALS (8 sets, daily range): BP systolic 114–162; BP diastolic 44–83; PULSE 61–72; TEMP 36.5–37.2; O2SAT 96–99
[2016-12-12] MEDS: LEVOTHYROXINE 75 MCG TAB PO SCH (05:47)
[2016-12-12] MEDS: LACTOBACILLUS ACIDOPHILUS (FLORANEX) TAB PO SCH ×3 (08:00→17:44)
[2016-12-12] MEDS: AMIODARONE 200 MG TAB PO SCH ×2 (08:00→21:00)
[2016-12-12] MEDS: HYDROCORTISONE HC 2.5% CRM 30GM TUBE EXT SCH ×2 (08:00→21:00)
[2016-12-12] MEDS: PANTOprazole SOD 40 MG TAB PO SCH ×2 (08:01→21:00)
[2016-12-12] MEDS: METOPROLOL SUCC 25MG EXT REL TAB PO SCH (08:01)
[2016-12-12] MEDS: POTASSIUM CHLORIDE 20 MEQ TABCR PO SCH (08:01)
[2016-12-12] MEDS: CHOLECALCIFEROL 1000 INTER.UNIT TAB PO SCH (08:01)
[2016-12-12] MEDS: CINACALCET 30 MG TAB PO SCH (08:01)
[2016-12-12 08:10] LABS: BASO % 0.4 %; BASO ABS # 0.03 K/uL (0-0.2); COMPLETE YES; EOS % 3.6 %; HEMATOCRIT 29.4 % (37-47); IG% 0.1 %; LYMPH % 21.4 %; LYMPH ABS # 1.56 K/uL (1.2-3.4); MEAN CORPUSCULAR HEMOGLOBIN 31.3 pg (25-34); MEAN CORPUSCULAR HGB CONC 34.4 g/dl (32-36); MEAN PLATELET VOLUME 10.9 fL (7.4-10.4); MONO % 9.1 %; NEUT % 65.4 %; PLATELET COUNT 197 K/uL (130-400); RED BLOOD COUNT 3.23 M/uL (4.2-5.4); WHITE BLOOD COUNT 7.29 K/uL (4.8-10.8)
[2016-12-12 08:28] LABS: BUN/CREATININE RATIO 20.2 (10-20); CALCIUM 8.3 mg/dl (8.5-10.1); CREATININE 0.63 mg/dl (0.60-1.20); MAGNESIUM 2.2 mg/dl (1.8-2.4); POTASSIUM 2.9 mmol/L (3.5-5.1)
[2016-12-12] MEDS ORDERED: POTASSIUM CHLORIDE 10 MEQ TABCR PO ONE (13:00)
--- NOTE | 2016-12-12 15:26 | Progress Note ---
Subjective Date of Service: Dec 12, 2016. Subjective Pt evaluation today including: conversation w/ patient, conversation w/ family , physical exam, chart review, lab review, review of studies, conversation w/ senior staff consultant, review of inpatient medication list Voiding: no voiding problems No complaining, feeling everyday getting better, out of bed to chair, no black stool, no nausea vomiting Problem List Medical Problems: (1) Upper GI bleed Status: Acute Review of Systems Constitutional: + weakness, No chills, No fatigue, No fever, No problem reported, No sweats, No weight loss Eyes: No diplopia, No discharge, No eye pain, No redness, No worsening of vision ENT: No dental problems, No hearing loss, No nasal symptoms, No sore throat, No tinnitus, No trouble swallowing, No unusual epistaxis Respiratory: No cough, No dyspnea at rest, No dyspnea on exertion, No hemoptysis, No shortness of breath, No sputum, No wheezing Cardiac: No PND, No chest pain, No claudication, No edema, No orthopnea, No palpitations Abdomen: No constipation, No diarrhea, No nausea, No pain, No vomiting Musculoskeletal: No calf pain, No joint pain, No muscle pain, No swelling Female : No abnormal vaginal bleeding, No dysuria, No hematuria, No incontinence, No urinary frequency, No vaginal discharge Neurologic: No balance problems, No memory loss, No numbness/tingling, No paralysis, No vertigo, No weakness Psychiatric: No anhedonism, No anxiety, No depression symptoms, No insomnia, No substance abuse Heme: No abnormal bleeding/bruising, No clotting problems, No night sweats, No swollen lymph nodes Endo: No excessive thirst, No excessive urination, No fatigue Skin: No bleeding, No color change, No itch, No new/changing skin lesions, No rash Objective Vital Signs Date Time Temp Pulse Resp B/P Pulse Ox O2 Delivery O2 Flow Rate FiO2 12/12/16 15:15 37.2 61 16 121/72 98 Room Air 12/12/16 11:07 96 Room Air 12/12/16 11:07 36.5 61 18 162/81 Room Air 12/12/16 08:00 37.1 68 18 120/44 99 Room Air 12/12/16 08:00 99 Room Air 12/12/16 04:00 Room Air 12/12/16 04:00 36.9 66 18 158/66 98 Room Air 12/12/16 00:00 98 Room Air 12/12/16 00:00 37.1 66 18 138/56 98 Room Air 12/11/16 20:00 98 Room Air 12/11/16 20:00 37.0 65 18 146/57 98 Room Air 12/11/16 16:00 37.2 65 16 142/59 99 Room Air 12/11/16 16:00 99 Room Air Physical Exam General Appearance: WD/WN, no apparent distress, + thin, + pertinent finding ( frail) Eyes: normal inspection, PERRL, EOMI, sclerae normal ENT: normal ENT inspection, hearing grossly normal, pharynx normal Neck: supple, no adenopathy, thyroid normal, no JVD, no carotid bruits, trachea midline Respiratory/Chest: chest non-tender, no respiratory distress, no accessory muscle use, + decreased breath sounds Cardiovascular: regular rate, rhythm, no edema, no gallop, no JVD, no murmur Abdomen: normal bowel sounds, non tender, soft, no organomegaly, no pulsatile mass Extremities: normal range of motion, non-tender, normal inspection, no pedal edema, no calf tenderness, normal capillary refill, pelvis stable Neurologic/Psychiatric: 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 as tested, no motor/sensory deficits, alert, normal mood/affect, oriented x 3 Skin: normal color, warm/dry, no rash Lymphatic: no adenopathy Laboratory Results Last 24 Hours Test 12/12/16 08:00 White Blood Count 7.29 K/uL Red Blood Count 3.23 M/uL Hemoglobin 10.1 g/dL Hematocrit 29.4 % Mean Corpuscular Volume 91.0 fL Mean Corpuscular Hemoglobin 31.3 pg Mean Corpuscular Hemoglobin Concent 34.4 g/dl Platelet Count 197 K/uL Mean Platelet Volume 10.9 fL Neutrophils (%) (Auto) 65.4 % Lymphocytes (%) (Auto) 21.4 % Monocytes (%) (Auto) 9.1 % Eosinophils (%) (Auto) 3.6 % Basophils (%) (Auto) 0.4 % Neutrophils # (Auto) 4.77 K/uL Lymphocytes # (Auto) 1.56 K/uL Monocytes # (Auto) 0.66 K/uL Eosinophils # (Auto) 0.26 K/uL Basophils # (Auto) 0.03 K/uL RDW Standard Deviation 48.3 fL RDW Coefficient of Variation 14.6 % Immature Granulocyte % (Auto) 0.1 % Immature Granulocyte # (Auto) 0.01 K/uL Sodium Level 144 mmol/L Potassium Level 2.9 mmol/L Chloride Level 112 mmol/L Carbon Dioxide Level 20 mmol/L Anion Gap 12.0 mmol/L Blood Urea Nitrogen 13 mg/dl Creatinine 0.63 mg/dl Est Creatinine Clear Calc Drug Dose 58.4 ml/min Estimated GFR () 96.1 Estimated GFR (Non- 82.9 BUN/Creatinine Ratio 20.2 Random Glucose 128 mg/dl Calcium Level 8.3 mg/dl Magnesium Level 2.2 mg/dl Assessment and Plan 81 yo F with PMHx of Multiple myeloma, peptic ulcer disease, external hemorrhoids with BRBPR, chronic diarrhea, s/p [place], CAD s/p CABG, paroxysmal afib , HTN, dyslipidemia, hyperparathyroidism, hypothyroidism, admitted on 2016 Patient has been following Dr. Maier with gastroenterology as an outpatient. The patient underwent emergent EGD found to have 2 bleeding vessels, and 1 nonbleeding ulcer. Pt was admitted to the ICU after EGD for acute GI bleed management. GI Bleed/ Peptic Ulcer disease/ Chronic Diarrhea/ External Hemorrhoids - Pt was urgently taken to the OR s/p increasing weakness and multiple episodes of hematemesis and hematchezia by GI. - Intubation performed in ED due to airway compromise with hematemesis and risk for aspiration, was successfully extubated 12/08 2016 - Pt follows with Dr. Maier as an outpatient - GI on board. - Switch to oral protonix tonight since pt has been on protonix IV x 3 days after this morning dose. Currently is 40 mg by mouth twice a day - VSS, currently BP are stabilized with MAP >65. - Tolerating normal diet - Pt received 6 U platelets prior to surg. Because she was on Plavix and she was having active bleeding - S/p 2 U PRBCs 01/09 for hbg drop to 7.2- responded appropriately to 9.8 - trending back up to 9.6 continue to be stable - Troponin I initially negative, then bumped to 0.122 --> 0.102: due to demand ischemia with afib - Per operative note: EGD showed avascular malformation x 2 and 1 ulceration which was cauterized with epinephrine - discussed with patient and family about risk and benefit of stroke prevention with blood thinner [id number] VASc Score: 6, stroke risks 9.7 % /yr HAS- Bled Score 3, bleeding 3.74 % /yr together with sugar boiler, discussed with patient and son who is power of attorney lawyer, discussed again the risks and benefits of anticoagulation for the stroke prevention, We are sure were not going to give aspirin, all Plavix, , the choice of oral anticoagulant such as eliquis could be reconsidered after discussed with GI, I will going to talk to Dr. Maier to see how is opportunity of gastric ulceration be treated. If we able to treat the ulceration disease and monitor in the bleedings, possible will able to give anticoagulants such as Eliquis for stroke prevention. Patient and power of attorney lawyer understand and agreed, I encouraged the patient's son to talked to patient's PCP and Dr. Morales for further discussions, son agrees. I discussed with GI, who does not favor any restarting of anticoagulation because of high risk of gastric bleeding, patient had already two severe upper GI bleeding from gastric ulcerative disease in the past. CAD s/p CABG x 3 Paroxysmal Atrial fibrillation - amiodarone gtt off, transitioned to oral 400 mg BID yesterday - Pt was previously admitted in Nov 2014 for melena, found to have a popliteal DVT and was started on lovenox and coumadin, then transitioned to plavix for anticoagulation as this reduced the risk or ulcers compared to coumadin or asa, with her pmhx of peptic ulcers - Continue to HOLD asa and plavix. Hypokalemia - Received a total of 20 meq IV, and then 60 meq orally throughout the day yesterday with improvement to 4.1, again this morning is 3.4. - Start daily dose of 20 meq at baseline today to keep up with electrolyte loss - reassess as needed. 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 Followed by Dr. Jimmy Marquez saw the patient, will have follow-up as out patient - Received Zometa monthly last in Sep 2016, plan for no chemotherapy at this time - Follows with Dr. Rashid with [facility] Hyperparathyroidism - Cont CONSULTING PSYCHOLOGIST sensispar 30 mg daily Hypothyroidism - Cont levothyroxine 75 mcg daily - TSH level checked = 0.271 DVT ppx: no chemical anticoagulation with GI bleed, SCDs, teds CODE STATUS: Full Code, no mechanical ventilation Disposition: Pending [facility] approved for discharge to [facility] Continued [facility] stay due to: home environment unsafe for pt Discharge planning: home
[2016-12-12 17:06] LABS: BUN/CREATININE RATIO 24.2 (10-20); CALCIUM 7.8 mg/dl (8.5-10.1); CREATININE 0.59 mg/dl (0.60-1.20); POTASSIUM 4.1 mmol/L (3.5-5.1)
[2016-12-13] VITALS (12 sets, daily range): BP systolic 118–150; BP diastolic 53–83; PULSE 61–96; TEMP 36.6–37.2; O2SAT 94–99
[2016-12-13] MEDS: LEVOTHYROXINE 75 MCG TAB PO SCH (06:16)
[2016-12-13 06:53] LABS: BASO % 0.6 %; BASO ABS # 0.04 K/uL (0-0.2); EOS % 4.1 %; HEMATOCRIT 26.3 % (37-47); IG% 0.1 %; LYMPH % 25.8 %; LYMPH ABS # 1.81 K/uL (1.2-3.4); MEAN CELL VOLUME 90.7 fL (80-100); MEAN CORPUSCULAR HEMOGLOBIN 30.7 pg (25-34); MEAN CORPUSCULAR HGB CONC 33.8 g/dl (32-36); MONO % 10.4 %; PLATELET COUNT 195 K/uL (130-400); WHITE BLOOD COUNT 7.01 K/uL (4.8-10.8)
[2016-12-13 07:13] LABS: COMPLETE YES
[2016-12-13 07:16] LABS: BUN/CREATININE RATIO 24.5 (10-20); CALCIUM 8.1 mg/dl (8.5-10.1); CREATININE 0.58 mg/dl (0.60-1.20); MAGNESIUM 2.2 mg/dl (1.8-2.4); POTASSIUM 3.6 mmol/L (3.5-5.1)
[2016-12-13] MEDS: LACTOBACILLUS ACIDOPHILUS (FLORANEX) TAB PO SCH ×3 (08:30→16:31)
[2016-12-13] MEDS: METOPROLOL SUCC 25MG EXT REL TAB PO SCH (08:31)
[2016-12-13] MEDS: AMIODARONE 200 MG TAB PO SCH ×2 (08:32→21:44)
[2016-12-13] MEDS: CINACALCET 30 MG TAB PO SCH (08:32)
[2016-12-13] MEDS: POTASSIUM CHLORIDE 20 MEQ TABCR PO SCH (08:32)
[2016-12-13] MEDS: HYDROCORTISONE HC 2.5% CRM 30GM TUBE EXT SCH ×2 (08:32→21:45)
[2016-12-13] MEDS: PANTOprazole SOD 40 MG TAB PO SCH ×2 (08:32→21:45)
[2016-12-13] MEDS: CHOLECALCIFEROL 1000 INTER.UNIT TAB PO SCH (08:33)
--- NOTE | 2016-12-13 11:19 | Progress Note ---
Subjective Date of Service: Dec 13, 2016. Subjective Pt evaluation today including: conversation w/ patient, physical exam, chart review, lab review, review of studies, conversation w/ [facility] consultant, review of inpatient medication list Voiding: no voiding problems Was out of bed to chair for more than 2 hours, now feel tired, no any complaints, eating okay, bowel movement and urination is good Problem List Medical Problems: (1) Upper GI bleed Status: Acute Review of Systems Constitutional: + fatigue, + weakness, No chills, No fever, No problem reported , No sweats, No weight loss Eyes: No diplopia, No discharge, No eye pain, No redness, No worsening of vision ENT: No dental problems, No hearing loss, No nasal symptoms, No sore throat, No tinnitus, No trouble swallowing, No unusual epistaxis Respiratory: No cough, No dyspnea at rest, No dyspnea on exertion, No hemoptysis, No shortness of breath, No sputum, No wheezing Cardiac: No PND, No chest pain, No claudication, No edema, No orthopnea, No palpitations Abdomen: No constipation, No diarrhea, No nausea, No pain, No vomiting Musculoskeletal: + joint pain, No calf pain, No muscle pain, No swelling Female : No abnormal vaginal bleeding, No dysuria, No hematuria, No incontinence, No urinary frequency, No vaginal discharge Neurologic: No balance problems, No memory loss, No numbness/tingling, No paralysis, No vertigo, No weakness Psychiatric: No anhedonism, No anxiety, No depression symptoms, No insomnia, No substance abuse Heme: No abnormal bleeding/bruising, No clotting problems, No night sweats, No swollen lymph nodes Endo: + fatigue, No excessive thirst, No excessive urination Skin: No bleeding, No color change, No itch, No new/changing skin lesions, No rash Objective Vital Signs Date Time Temp Pulse Resp B/P Pulse Ox O2 Delivery O2 Flow Rate FiO2 12/13/16 08:00 Room Air 12/13/16 07:31 36.6 61 20 144/53 97 12/13/16 04:21 36.9 67 18 145/82 97 Room Air 12/13/16 04:12 98 Room Air 12/13/16 01:27 37.0 72 20 150/83 97 Room Air 12/13/16 00:02 98 Room Air 12/12/16 20:00 98 Room Air 12/12/16 19:17 36.6 61 20 114/54 98 Room Air 12/12/16 16:00 Room Air 12/12/16 15:15 37.2 61 16 121/72 98 Room Air Physical Exam General Appearance: WD/WN, no apparent distress, + cachetic, + thin, + pertinent finding (frail) Eyes: normal inspection, PERRL, EOMI, sclerae normal ENT: normal ENT inspection, hearing grossly normal, pharynx normal Neck: supple, no adenopathy, thyroid normal, no JVD, no carotid bruits, trachea midline Respiratory/Chest: chest non-tender, normal breath sounds, no respiratory distress, no accessory muscle use, + decreased breath sounds Cardiovascular: regular rate, rhythm, no edema, no gallop, no JVD, no murmur Abdomen: normal bowel sounds, non tender, soft, no organomegaly, no pulsatile mass Extremities: normal range of motion, non-tender, normal inspection, no pedal edema, no calf tenderness, normal capillary refill, pelvis stable Neurologic/Psychiatric: transitional living specialist II-XII nml as tested, no motor/sensory deficits, alert, normal mood/affect, oriented x 3 Skin: normal color, warm/dry, no rash, + pertinent finding (looks mild pale than yesterday) Lymphatic: no adenopathy Laboratory Results Last 24 Hours Test 12/12/16 16:04 12/12/16 16:10 12/12/16 20:10 12/13/16 06:35 Bedside Glucose 89 mg/dl 168 mg/dl Sodium Level 142 mmol/L 144 mmol/L Potassium Level 4.1 mmol/L 3.6 mmol/L Chloride Level 111 mmol/L 112 mmol/L Carbon Dioxide Level 24 mmol/L 21 mmol/L Anion Gap 7.0 mmol/L 11.0 mmol/L Blood Urea Nitrogen 14 mg/dl 14 mg/dl Creatinine 0.59 mg/dl 0.58 mg/dl Est Creatinine Clear Calc Drug Dose 62.4 ml/min 63.5 ml/min Estimated GFR () 98.2 98.8 Estimated GFR (Non- 84.8 85.2 BUN/Creatinine Ratio 24.2 24.5 Random Glucose 89 mg/dl 85 mg/dl Calcium Level 7.8 mg/dl 8.1 mg/dl White Blood Count 7.01 K/uL Red Blood Count 2.90 M/uL Hemoglobin 8.9 g/dL Hematocrit 26.3 % Mean Corpuscular Volume 90.7 fL Mean Corpuscular Hemoglobin 30.7 pg Mean Corpuscular Hemoglobin Concent 33.8 g/dl Platelet Count 195 K/uL Mean Platelet Volume 11.0 fL Neutrophils (%) (Auto) 59.0 % Lymphocytes (%) (Auto) 25.8 % Monocytes (%) (Auto) 10.4 % Eosinophils (%) (Auto) 4.1 % Basophils (%) (Auto) 0.6 % Neutrophils # (Auto) 4.13 K/uL Lymphocytes # (Auto) 1.81 K/uL Monocytes # (Auto) 0.73 K/uL Eosinophils # (Auto) 0.29 K/uL Basophils # (Auto) 0.04 K/uL RDW Standard Deviation 49.0 fL RDW Coefficient of Variation 15.0 % Immature Granulocyte % (Auto) 0.1 % Immature Granulocyte # (Auto) 0.01 K/uL Red Blood Cell Morphology Unremarkable Magnesium Level 2.2 mg/dl Test 12/13/16 07:12 Bedside Glucose 87 mg/dl Assessment and Plan 81 yo F with PMHx of Multiple myeloma, peptic ulcer disease, external hemorrhoids with BRBPR, chronic diarrhea, s/p [place], CAD s/p CABG, paroxysmal afib , HTN, dyslipidemia, hyperparathyroidism, hypothyroidism, admitted on 2016 Patient has been following Dr. Maier with gastroenterology as an outpatient. The patient underwent emergent EGD found to have 2 bleeding vessels, and 1 nonbleeding ulcer. Pt was admitted to the ICU after EGD for acute GI bleed management. Now in the MedSurg floor just waiting for discharge to rehabilitation GI Bleed/ Peptic Ulcer disease/ Chronic Diarrhea/ External Hemorrhoids - Pt was urgently taken to the OR s/p increasing weakness and multiple episodes of hematemesis and hematchezia by GI. - Intubation performed in ED due to airway compromise with hematemesis and risk for aspiration, was successfully extubated 12/08 2016 - Pt follows with Dr. Maier as an outpatient - GI on board. - Switch to oral protonix after pt has been on protonix IV x 3 days , Currently is 40 mg by mouth twice a day - Tolerating normal diet - Pt received 6 U platelets prior to operation known. Because she was on Plavix and she was having active bleeding - S/p 2 U PRBCs 01/09 for hbg drop to 7.2- responded appropriately to 9.8 - trending back up to 9.6 continue to be stable - Troponin I initially negative, then bumped to 0.122 --> 0.102: due to demand ischemia with afib - Per operative note: EGD showed avascular malformation x 2 and 1 ulceration which was cauterized with epinephrine New identified atrial fibrillation, now is in oral amiodarone, currently in normal sinus resume - discussed with patient and family about risk and benefit of stroke prevention with blood thinner because of possible PAF [id number] VASc Score: 6, stroke risks 9.7 % /yr HAS- Bled Score 3, bleeding 3.74 % /yr together with promotional demonstrator, discussed with patient and son who is power of state's attorney, discussed the risks and benefits of anticoagulation for the stroke prevention, We are sure were not going to give aspirin, or Plavix, the choice of oral anticoagulant such as Eliquis could be reconsidered after discussed with GI. I discussed with GI, who does not favor any restarting of anticoagulation because of high risk of gastric bleeding, patient had already two severe upper GI bleeding from gastric ulcerative disease in the past. I encouraged the patient's son to talked to patient's PCP, Dr. Morales for further discussions, son agrees. CAD s/p CABG x 3 Paroxysmal Atrial fibrillation - amiodarone gtt off, transitioned to oral 400 mg BID yesterday - Pt was previously admitted in Nov 2014 for melena, found to have a popliteal DVT and was started on lovenox and coumadin, then transitioned to plavix for anticoagulation as this reduced the risk or ulcers compared to coumadin or asa, with her pmhx of peptic ulcers - Continue to HOLD asa and plavix. Hypokalemia - Received a total of 20 meq IV, and then 60 meq orally throughout the day yesterday with improvement to 4.1, again this morning is 3.4. - Start daily dose of 20 meq at baseline today to keep up with electrolyte loss - reassess as needed. HTN - Cont verapamil 240 mg PO HS - Cont metoprolol succinate 25 mg daily Dyslipidemia - Cont block captain pravastatin MWF Multiple Myeloma - Stable plasma dyscrasia, stage II. Followed by Dr. Jimmy Marquez saw the patient, will have follow-up as out patient - Received Zometa monthly last in Sep 2016, plan for no chemotherapy at this time - Follows with 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
[2016-12-13] MEDS ORDERED: NURSING VERBAL MED ORDER ONE (22:15)
[2016-12-13] MEDS: ACETAMINOPHEN 325 MG TAB PO PRN (22:32)
[2016-12-14] VITALS (9 sets, daily range): BP systolic 122–174; BP diastolic 66–81; PULSE 57–64; TEMP 36.7–37.3; O2SAT 95–99
[2016-12-14] MEDS: LEVOTHYROXINE 75 MCG TAB PO SCH (05:42)
[2016-12-14] MEDS: PRAVASTATIN SOD 20 MG TAB PO SCH (08:18)
[2016-12-14] MEDS: HYDROCORTISONE HC 2.5% CRM 30GM TUBE EXT SCH ×2 (08:18→21:01)
[2016-12-14] MEDS: LACTOBACILLUS ACIDOPHILUS (FLORANEX) TAB PO SCH ×3 (08:18→17:19)
[2016-12-14] MEDS: AMIODARONE 200 MG TAB PO SCH ×2 (08:18→21:00)
[2016-12-14] MEDS: METOPROLOL SUCC 25MG EXT REL TAB PO SCH (08:18)
[2016-12-14] MEDS: CHOLECALCIFEROL 1000 INTER.UNIT TAB PO SCH (08:18)
[2016-12-14] MEDS: PANTOprazole SOD 40 MG TAB PO SCH ×2 (08:18→21:01)
[2016-12-14] MEDS: CINACALCET 30 MG TAB PO SCH (08:18)
[2016-12-14] MEDS: POTASSIUM CHLORIDE 20 MEQ TABCR PO SCH (08:19)
[2016-12-14 08:44] LABS: BASO % 0.4 %; BASO ABS # 0.03 K/uL (0-0.2); COMPLETE YES; EOS % 3.9 %; HEMATOCRIT 28.9 % (37-47); IG% 0.4 %; LYMPH % 23.7 %; LYMPH ABS # 1.71 K/uL (1.2-3.4); MEAN CELL VOLUME 92.3 fL (80-100); MEAN CORPUSCULAR HEMOGLOBIN 31.3 pg (25-34); MEAN CORPUSCULAR HGB CONC 33.9 g/dl (32-36); MEAN PLATELET VOLUME 10.8 fL (7.4-10.4); NEUT % 63.6 %; PLATELET COUNT 245 K/uL (130-400); RED BLOOD COUNT 3.13 M/uL (4.2-5.4); WHITE BLOOD COUNT 7.21 K/uL (4.8-10.8)
--- NOTE | 2016-12-14 12:41 | Progress Note ---
Subjective Date of Service: Dec 14, 2016. Subjective Pt evaluation today including: conversation w/ patient, physical exam, chart review, lab review, review of studies, review of inpatient medication list Pt resting comfortably in bed States only small amts of blood in stools No fevers, chills, N/V/D or abd pain Problem List Medical Problems: (1) Upper GI bleed Status: Acute Review of Systems Constitutional: No chills, No fever Respiratory: No cough, No dyspnea on exertion, No shortness of breath, No sputum, No wheezing Cardiac: No chest pain, No orthopnea Abdomen: No constipation, No diarrhea, No nausea, No pain, No vomiting Musculoskeletal: No joint pain, No muscle pain Female : No dysuria, No urinary frequency Endo: No excessive thirst, No fatigue Skin: No itch, No rash Objective Vital Signs Date Time Temp Pulse Resp B/P Pulse Ox O2 Delivery O2 Flow Rate FiO2 12/14/16 12:01 36.7 62 20 122/66 96 Room Air 12/14/16 07:50 36.9 62 18 152/81 98 Room Air 12/14/16 07:45 Room Air 12/14/16 04:00 37.0 64 18 174/81 99 Room Air 12/14/16 04:00 36.9 62 20 149/71 95 Room Air 12/14/16 04:00 Room Air 12/14/16 00:00 Room Air 12/14/16 00:00 36.9 62 20 149/71 95 Room Air 12/13/16 21:49 65 130/78 12/13/16 20:00 94 Room Air 12/13/16 19:27 36.7 61 20 118/68 98 Room Air 12/13/16 16:00 94 Room Air 12/13/16 15:12 37.2 96 20 120/72 94 Physical Exam General Appearance: WD/WN, no apparent distress Neck: supple, no adenopathy Respiratory/Chest: chest non-tender, lungs clear, normal breath sounds Cardiovascular: regular rate, rhythm, no edema, no gallop Abdomen: normal bowel sounds, soft Neurologic/Psychiatric: alert, oriented x 3 Laboratory Results Last 24 Hours Test 12/13/16 16:09 12/14/16 07:47 12/14/16 08:17 12/14/16 11:32 Bedside Glucose 137 mg/dl 100 mg/dl 81 mg/dl White Blood Count 7.21 K/uL Red Blood Count 3.13 M/uL Hemoglobin 9.8 g/dL Hematocrit 28.9 % Mean Corpuscular Volume 92.3 fL Mean Corpuscular Hemoglobin 31.3 pg Mean Corpuscular Hemoglobin Concent 33.9 g/dl Platelet Count 245 K/uL Mean Platelet Volume 10.8 fL Neutrophils (%) (Auto) 63.6 % Lymphocytes (%) (Auto) 23.7 % Monocytes (%) (Auto) 8.0 % Eosinophils (%) (Auto) 3.9 % Basophils (%) (Auto) 0.4 % Neutrophils # (Auto) 4.58 K/uL Lymphocytes # (Auto) 1.71 K/uL Monocytes # (Auto) 0.58 K/uL Eosinophils # (Auto) 0.28 K/uL Basophils # (Auto) 0.03 K/uL RDW Standard Deviation 50.2 fL RDW Coefficient of Variation 15.0 % Immature Granulocyte % (Auto) 0.4 % Immature Granulocyte # (Auto) 0.03 K/uL Assessment and Plan 81 yo F with PMHx of Multiple myeloma, peptic ulcer disease, external hemorrhoids with BRBPR, chronic diarrhea, s/p [place], CAD s/p CABG, paroxysmal afib , HTN, dyslipidemia, hyperparathyroidism, hypothyroidism, admitted on 2016 Patient has been following Dr. Maier with gastroenterology as an outpatient. The patient underwent emergent EGD found to have 2 bleeding vessels, and 1 nonbleeding ulcer. Pt was admitted to the ICU after EGD for acute GI bleed management. Now in the MedSur floor just waiting for discharge to rehabilitation GI Bleed/ Peptic Ulcer disease/ Chronic Diarrhea/ External Hemorrhoids - Pt was urgently taken to the OR s/p increasing weakness and multiple episodes of hematemesis and hematchezia by GI. - Intubation performed in ED due to airway compromise with hematemesis and risk for aspiration, was successfully extubated 12/08 2016 - Pt follows with Dr. Maier as an outpatient - GI on board. - Switch to oral protonix after pt has been on protonix IV x 3 days, Currently is 40 mg by mouth twice a day - Tolerating normal diet - Pt received 6 U platelets prior to operation known. Because she was on Plavix and she was having active bleeding - S/p 2 U PRBCs 01/09 for hbg drop to 7.2- responded appropriately to 9.8 - trending back up to 9.6 continue to be stable - Troponin I initially negative, then bumped to 0.122 --> 0.102: due to demand ischemia with afib - Per operative note: EGD showed avascular malformation x 2 and 1 ulceration which was cauterized with epinephrine New identified atrial fibrillation, now is in oral amiodarone, currently in normal sinus resume - discussed with patient and family about risk and benefit of stroke prevention with blood thinner because of possible PAF [id number] VASc Score: 6, stroke risks 9.7 % /yr HAS- Bled Score 3, bleeding 3.74 % /yr together with frameman, discussed with patient and son who is power of hot box checker, discussed the risks and benefits of anticoagulation for the stroke prevention, We are sure were not going to give aspirin, or Plavix, the choice of oral anticoagulant such as Eliquis could be reconsidered after discussed with GI. I discussed with GI, who does not favor any restarting of anticoagulation because of high risk of gastric bleeding, patient had already two severe upper GI bleeding from gastric ulcerative disease in the past. I encouraged the patient's son to talked to patient's PCP, Dr. Morales for further discussions, son agrees. CAD s/p CABG x 3 Paroxysmal Atrial fibrillation - amiodarone gtt off, transitioned to oral 400 mg BID yesterday - Pt was previously admitted in Nov 2014 for melena, found to have a popliteal DVT and was started on lovenox and coumadin, then transitioned to plavix for anticoagulation as this reduced the risk or ulcers compared to coumadin or asa, with her pmhx of peptic ulcers - Continue to HOLD asa and plavix. Hypokalemia - Received a total of 20 meq IV, and then 60 meq orally throughout the day yesterday with improvement to 4.1, again this morning is 3.4. - Start daily dose of 20 meq at baseline today to keep up with electrolyte loss - reassess as needed. HTN - Cont verapamil 240 mg PO HS - Cont metoprolol succinate 25 mg daily Dyslipidemia - Cont door captain pravastatin MWF Multiple Myeloma - Stable plasma dyscrasia, stage II. Followed by Dr. Jimmy Marquez saw the patient, will have follow-up as out patient - Received Zometa monthly last in Sep 2016, plan for no chemotherapy at this time - Follows with Dr. Rashid with [facility] Hyperparathyroidism - Cont STULL INSTALLER sensispar 30 mg daily Hypothyroidism - Cont levothyroxine 75 mcg daily - TSH level checked = 0.271 DVT ppx: no chemical anticoagulation with GI bleed, SCDs, teds CODE STATUS: Full Code, no mechanical ventilation Disposition: Pending [facility] approved for discharge to [facility] Continued [facility] stay due to: home environment unsafe for pt Discharge planning: rehab hospital
[2016-12-14] MEDS: ACETAMINOPHEN 325 MG TAB PO PRN (15:12)
[2016-12-15 04:32] VITALS: BP 157/73; PULSE 70; TEMP 36.8; O2SAT 98
[2016-12-15] MEDS: LEVOTHYROXINE 75 MCG TAB PO SCH (07:35)
[2016-12-15] MEDS: LACTOBACILLUS ACIDOPHILUS (FLORANEX) TAB PO SCH ×2 (07:36→11:51)
[2016-12-15] MEDS: HYDROCORTISONE HC 2.5% CRM 30GM TUBE EXT SCH (07:37)
[2016-12-15] MEDS: AMIODARONE 200 MG TAB PO SCH (07:37)
[2016-12-15] MEDS: POTASSIUM CHLORIDE 20 MEQ TABCR PO SCH (07:37)
[2016-12-15] MEDS: CINACALCET 30 MG TAB PO SCH (07:37)
[2016-12-15] MEDS: PANTOprazole SOD 40 MG TAB PO SCH (07:37)
[2016-12-15] MEDS: METOPROLOL SUCC 25MG EXT REL TAB PO SCH (07:38)
[2016-12-15] MEDS: ACETAMINOPHEN 325 MG TAB PO PRN (07:38)
[2016-12-15] MEDS: CHOLECALCIFEROL 1000 INTER.UNIT TAB PO SCH (07:38)
[2016-12-15 07:44] VITALS: BP 129/69; PULSE 68; TEMP 37.1; O2SAT 97
--- NOTE | 2016-12-15 08:55 | Cardiology Follow-Up ---
Subjective Date of Service: Dec 15, 2016. Pt evaluation today including: conversation w/ patient, physical exam, lab review, review of studies, review of inpatient medication list History of Present Illness She is feeling much better today, she has no specific complaints. She is sitting in bed and looks much better as well. She denies palpitations or side effects to her medications. Social History Smoking Status: Never Smoker History of Alcohol Use: No Review of Systems Respiratory: No cough, No dyspnea on exertion, No shortness of breath, No sputum, No wheezing Cardiac: No chest pain, No orthopnea Medications Cardiovascular: Item Value Date Time Potassium Chloride 20 meq 12/11/16 0900 (Klor-Con Tab) QAM/PO 12/15/16 0737 Amiodarone HCl 400 mg 12/09/16 2100 (Cordarone Tab) BID/PO 12/15/16 0737 Metoprolol 25 mg 12/09/16 0900 Succinate DAILY/PO 12/15/16 0738 (Toprol Xl Tab) Objective Vital Signs Past 12 Hours Date Time Temp Pulse Resp B/P Pulse Ox O2 Delivery O2 Flow Rate FiO2 12/15/16 07:45 Room Air 12/15/16 07:44 37.1 68 16 129/69 97 Room Air 12/15/16 04:32 36.8 70 20 157/73 98 Room Air 12/15/16 04:00 Room Air 12/14/16 23:59 Room Air 12/14/16 23:17 36.9 59 18 167/74 97 Room Air Last Recorded Weight-Kilograms: 60.700 Intake & Output 8-Hour Column 12/14/16 12/15/16 12/15/16 16:00 00:00 08:00 Intake Total 120 ml 360 ml Output Total 0 ml 0 ml Balance 120 ml 360 ml 24-Hour Column 12/15/16 08:00 Intake Total 480 ml Output Total 0 ml Balance 480 ml Physical Exam Constitutional: Level of Distress: NAD Lungs: Respiratory effort: good air movement Auscultation: breath sounds normal, no wheezing, no rales/crackles, pertinent finding Cardiovascular: Heart Auscultation: RRR, normal S1, normal S2, no murmurs Peripheral Pulses: Bruits: none appreciated Data Laboratory Results: Last 24 Hours Test 12/14/16 11:32 12/14/16 16:16 12/14/16 20:30 12/15/16 07:57 Bedside Glucose 81 mg/dl 125 mg/dl 117 mg/dl Telemetry reviewed: Sinus rhythm and sinus bradycardia, no further atrial fibrillation. Assessment and Plan #1. Paroxysmal atrial fibrillation: She appeared to have very frequent episodes of atrial fibrillation alternating with periods of sinus rhythm on admission, on IV amiodarone and now on oral she has remained in sinus rhythm predominantly with a few breakthroughs of atrial fibrillation early in her course of treatment with amiodarone, however none recently. This is been in remarkably good response to amiodarone. For the moment we can't anticoagulate and I would recommend trying to keep in sinus rhythm, I would continue amiodarone which seems to be effective. That may not work over the long run but at least during the short term until we sort out her anticoagulation that may be the best option. I am going to reduce her dose to 200 mg twice a day. #2. GI bleed: She had been on Plavix as an outpatient, evidently not on aspirin or an anticoagulant recently. Hopefully we can keep her from having recurrent ulceration. In that case she should not have a lot of risk from anticoagulation , but if we can't control her GI ulcerations she remains at high risk for anticoagulation. #3. DVT: She does have a history of DVT, and probably should be on anticoagulation for that, although she does have a Alyse filter in place. That gives her an additional thrombotic risk in addition to her risk of stroke, another reason to reconsider anticoagulation at a future date. #4. Anticoagulation status: At the moment I would agree with no anticoagulation , over the long run I would consider restarting one of the newer agents, probably Eliquis, it is felt reasonably safe to do so per GI. I would be hesitant however to use combination therapy with anticoagulation and a platelet inhibitor even though she has some indication for aspirin, the risk is too great for platelet inhibitor. We can reduce her GI bleed risk from around 9% down to about 3% on anticoagulation alone by not using platelet inhibitors, with little change in her risk of stroke from atrial fibrillation and little change in her risk of DVT. Her risk of having a cardiac event is probably much lower than this. The decision about long-term anticoagulation will have to be made as an outpatient, at the moment there is no urgency, especially since she remains in sinus rhythm. Thank you for allowing me to participate in her care.
[2016-12-15 10:01] LABS: HEMATOCRIT 28.7 % (37-47)
[2016-12-15 11:35] VITALS: BP 111/68; PULSE 59; TEMP 36.8; O2SAT 94
--- NOTE | 2016-12-15 13:40 | Progress Note ---
Subjective Date of Service: Dec 15, 2016. Subjective Pt evaluation today including: conversation w/ patient, physical exam, chart review, lab review, review of studies, review of inpatient medication list Pt resting comfortably in bed Expresses concern about hemmorhoids No worsening bleeding noted Problem List Medical Problems: (1) Upper GI bleed Status: Acute Review of Systems Constitutional: No chills, No fever Respiratory: No cough, No sputum Cardiac: No chest pain, No orthopnea Abdomen: + GI bleeding, No constipation, No diarrhea, No nausea, No pain, No vomiting Musculoskeletal: No joint pain, No muscle pain Female : No dysuria, No urinary frequency Objective Vital Signs Date Time Temp Pulse Resp B/P Pulse Ox O2 Delivery O2 Flow Rate FiO2 12/15/16 12:00 Room Air 12/15/16 11:35 36.8 59 18 111/68 94 Room Air 12/15/16 07:45 Room Air 12/15/16 07:44 37.1 68 16 129/69 97 Room Air 12/15/16 04:32 36.8 70 20 157/73 98 Room Air 12/15/16 04:00 Room Air 12/14/16 23:59 Room Air 12/14/16 23:17 36.9 59 18 167/74 97 Room Air 12/14/16 20:07 36.8 58 18 138/70 95 Room Air 12/14/16 20:00 97 Room Air 12/14/16 16:00 97 Room Air 12/14/16 15:05 37.3 57 16 127/71 97 Room Air Physical Exam General Appearance: WD/WN, no apparent distress Neck: supple, no adenopathy Respiratory/Chest: chest non-tender, lungs clear, normal breath sounds Cardiovascular: no edema, no gallop Abdomen: non tender, soft Neurologic/Psychiatric: alert, oriented x 3 Laboratory Results Last 24 Hours Test 12/14/16 16:16 12/14/16 20:30 12/15/16 09:45 Bedside Glucose 125 mg/dl 117 mg/dl Hemoglobin 9.5 g/dL Hematocrit 28.7 % Assessment and Plan 81 yo F with PMHx of Multiple myeloma, peptic ulcer disease, external hemorrhoids with BRBPR, chronic diarrhea, s/p [place], CAD s/p CABG, paroxysmal afib , HTN, dyslipidemia, hyperparathyroidism, hypothyroidism, admitted on 2016 Patient has been following Dr. Maier with gastroenterology as an outpatient. The patient underwent emergent EGD found to have 2 bleeding vessels, and 1 nonbleeding ulcer. Pt was admitted to the ICU after EGD for acute GI bleed management. Now in the MedSurg floor just waiting for discharge to rehabilitation GI Bleed/ Peptic Ulcer disease/ Chronic Diarrhea/ External Hemorrhoids - Pt was urgently taken to the OR s/p increasing weakness and multiple episodes of hematemesis and hematchezia by GI. - Intubation performed in ED due to airway compromise with hematemesis and risk for aspiration, was successfully extubated 12/08 2016 - Pt follows with Dr. Maier as an outpatient - GI on board. - Switch to oral protonix after pt has been on protonix IV x 3 days, Currently is 40 mg by mouth twice a day - Tolerating normal diet - Pt received 6 U platelets prior to operation known. Because she was on Plavix and she was having active bleeding - S/p 2 U PRBCs 01/09 for hbg drop to 7.2- responded appropriately to 9.8 - trending back up to 9.6 continue to be stable - Troponin I initially negative, then bumped to 0.122 --> 0.102: due to demand ischemia with afib - Per operative note: EGD showed avascular malformation x 2 and 1 ulceration which was cauterized with epinephrine New identified atrial fibrillation, now is in oral amiodarone, currently in normal sinus resume - discussed with patient and family about risk and benefit of stroke prevention with blood thinner because of possible PAF [id number] VASc Score: 6, stroke risks 9.7 % /yr HAS- Bled Score 3, bleeding 3.74 % /yr together with ball racker, discussed with patient and son who is power of ip attorney, discussed the risks and benefits of anticoagulation for the stroke prevention, We are sure were not going to give aspirin, or Plavix, the choice of oral anticoagulant such as Eliquis could be reconsidered after discussed with GI. I discussed with GI, who does not favor any restarting of anticoagulation because of high risk of gastric bleeding, patient had already two severe upper GI bleeding from gastric ulcerative disease in the past. I encouraged the patient's son to talked to patient's PCP, Dr. Morales for further discussions, son agrees. CAD s/p CABG x 3 Paroxysmal Atrial fibrillation - amiodarone gtt off, transitioned to oral 400 mg BID yesterday - Pt was previously admitted in Nov 2014 for melena, found to have a popliteal DVT and was started on lovenox and coumadin, then transitioned to plavix for anticoagulation as this reduced the risk or ulcers compared to coumadin or asa, with her pmhx of peptic ulcers - Continue to HOLD asa and plavix. Hypokalemia - Received a total of 20 meq IV, and then 60 meq orally throughout the day yesterday with improvement to 4.1, again this morning is 3.4. - Start daily dose of 20 meq at baseline today to keep up with electrolyte loss - reassess as needed. HTN - Cont verapamil 240 mg PO HS - Cont metoprolol succinate 25 mg daily Dyslipidemia - Cont airline captain pravastatin MWF Multiple Myeloma - Stable plasma dyscrasia, stage II. Followed by Dr. Jimmy Marquez saw the patient, will have follow-up as out patient - Received Zometa monthly last in Sep 2016, plan for no chemotherapy at this time - Follows with Dr. Rashid with [facility] Hyperparathyroidism - Cont PAPER HANDLER sensispar 30 mg daily Hypothyroidism - Cont levothyroxine 75 mcg daily - TSH level checked = 0.271 DVT ppx: no chemical anticoagulation with GI bleed, SCDs, teds CODE STATUS: Full Code, no mechanical ventilation Disposition: Pending [facility] approved for discharge to [facility] Continued [facility] stay due to: home environment unsafe for pt Discharge planning: rehab hospital
[2016-12-15] MEDS ORDERED: PRT40 PO (14:28)
[2016-12-15] MEDS ORDERED: CRD200 PO (14:28)
--- NOTE | 2016-12-15 14:36 | Discharge Instructions ---
Discharge Instructions Admission Reason for Admission: Hematemesis, Weakness Discharge Discharge Diagnosis / Problem: Gastrointestinal bleeding, Atrial fibrillation Discharge Goals Goal(s): Decrease discomfort, Improve function, Increase independence, Improve disease control, Diagnostic testing, Therapeutic intervention, Screening Activity Recommendations Activity Limitations: resume your previous activity Shower/Bathe: no limitations Driving or Machine Use: no limitations . Instructions / Follow-Up Instructions / Follow-Up Patient to be discharged home with home health Please remember to stop taking plavix at this time Changes in medications include protonix 40 mg 1 tablet twice a day and amiodarone 200 mg 1 tablet twice a day If worsening rectal bleeding or coughing up blood, please present to ER Will need to follow up with Dr Woody in 1-2 weeks to discuss possibly restarting anticoagulation Will need to follow up with Dr Maier in 1-2 weeks Current Hospital Diet Patient's current hospital diet: AHA Diet (Heart Healthy) Discharge Diet Recommended Diet: AHA Diet (Heart Healthy) Procedures Procedures Performed: EGD WITH CAUTERY AND INJECTION Pending Studies Studies pending at discharge: no Medical Emergencies . Who to Call and When: Medical Emergencies: If at any time you feel your situation is an emergency, please call 911 immediately. . Non-Emergent Contact Non-Emergency issues call your: Primary Care Provider Call Non-Emergent contact if: your pain is worsening . . "Provider Documentation" section prepared by Duke Moore. VTE Core Measure Inpt VTE Proph given/why not?: T.E.D. Stockings, SCD's, Contraindicated
[2016-12-15 15:04] VITALS: BP 111/68; PULSE 59; TEMP 36.8; O2SAT 94
--- NOTE | 2016-12-15 15:29 | Discharge Summary ---
Discharge Summary Admission Date: Dec 08, 2016 at 11:50 Discharge Date: Dec 15, 2016 Discharge Disposition: Home with services Principal Diagnosis: GI bleeding, afib Immunizations: Have You Had Influenza Vaccine: Yes History of Tetanus Vaccine?: unknown History of Pneumococcal: Yes History of Hepatitis B Vaccine: Yes Consultations: GI Cardiology Medication Reconciliation New Medications: Amiodarone HCl (Amiodarone HCl) 200 Mg Tab 200 MG PO BID for 30 Days, #60 TABS Pantoprazole (Pantoprazole Sodium) 40 Mg Tab 40 MG PO BID for 30 Days, #60 TAB Continued Medications: Cholecalciferol (Vitamin D 1000 Unit) 1,000 Unit Cap 1000 INTER.UNIT PO DAILY, CAP Cinacalcet (Sensipar) 30 Mg Tab 30 MG PO DAILY, TAB Diphenoxylate/Atropine (Lomotil) Tab 1 TAB PO prn, TAB Levothyroxine Sodium (Synthroid) 75 Mcg Tab 75 MCG PO DAILY, TAB Metoprolol Succinate (Toprol Xl) 50 Mg Tabcr 25 MG PO DAILY, #30 TAB Nitroglycerin (Intra-Anal) (Rectiv) 0.4 % Oin Potassium Ext Rel (Klor-Con) 20 Meq Tabcr 20 MEQ PO DAILY, TAB Pravastatin (Pravachol ) 20 Mg Tab 20 MG PO MWF, TAB TAKE AT BEDTIME Prednisone (Prednisone) 5 Mg Tab 5 MG PO DAILY, TAB Discontinued Medications: Clopidogrel (Plavix) 75 Mg Tab 75 MG PO DAILY, TAB Pantoprazole (Protonix) 40 Mg Tab 40 MG PO DAILY, #30 TAB Verapamil Hcl (Verapamil Hcl Er) 240 Mg Cap 240 MG PO HS Discharge Exam Review of Systems: Constitutional: No chills, No fever Respiratory: No cough, No shortness of breath, No sputum, No wheezing Cardiovascular: No chest pain, No orthopnea Abdomen: No diarrhea, No nausea, No pain, No vomiting Musculoskeletal: No joint pain, No muscle pain Genitourinary - Female: No dysuria, No urinary frequency, No urinary urgency Neurologic: No paralysis, No weakness Physical Exam: General Appearance: WD/WN, no apparent distress Neck: supple, no adenopathy Respiratory/Chest: chest non-tender, lungs clear, normal breath sounds Cardiovascular: regular rate, rhythm, no edema, no JVD Abdomen / GI: non tender, soft Neurologic/Psychiatric: alert, oriented x 3 Hospital Course 81 yo F with PMHx of Multiple myeloma, peptic ulcer disease, external hemorrhoids with BRBPR, chronic diarrhea, s/p [place], CAD s/p CABG, paroxysmal afib , HTN, dyslipidemia, hyperparathyroidism, hypothyroidism, admitted on 2016 Patient has been following Dr. Maier with gastroenterology as an outpatient. The patient underwent emergent EGD found to have 2 bleeding vessels, and 1 nonbleeding ulcer. Pt was admitted to the ICU after EGD for acute GI bleed management. Now in the MedSurg floor just waiting for discharge to rehabilitation GI Bleed/ Peptic Ulcer disease/ Chronic Diarrhea/ External Hemorrhoids - Pt was urgently taken to the OR s/p increasing weakness and multiple episodes of hematemesis and hematchezia by GI. - Intubation performed in ED due to airway compromise with hematemesis and risk for aspiration, was successfully extubated 12/08 2016 - Pt follows with Dr. Maier as an outpatient - GI on board. - Switch to oral protonix after pt has been on protonix IV x 3 days, Currently is 40 mg by mouth twice a day - Tolerating normal diet - Pt received 6 U platelets prior to operation known. Because she was on Plavix and she was having active bleeding - S/p 2 U PRBCs 01/09 for hbg drop to 7.2- responded appropriately to 9.8 - trending back up to 9.6 continue to be stable - Troponin I initially negative, then bumped to 0.122 --> 0.102: due to demand ischemia with afib - Per operative note: EGD showed avascular malformation x 2 and 1 ulceration which was cauterized with epinephrine New identified atrial fibrillation, now is in oral amiodarone, currently in normal sinus resume - discussed with patient and family about risk and benefit of stroke prevention with blood thinner because of possible PAF [id number] VASc Score: 6, stroke risks 9.7 % /yr HAS- Bled Score 3, bleeding 3.74 % /yr together with fios line installer, discussed with patient and son who is power of litigation attorney associate, discussed the risks and benefits of anticoagulation for the stroke prevention, We are sure were not going to give aspirin, or Plavix, the choice of oral anticoagulant such as Eliquis could be reconsidered after discussed with GI. I discussed with GI, who does not favor any restarting of anticoagulation because of high risk of gastric bleeding, patient had already two severe upper GI bleeding from gastric ulcerative disease in the past. I encouraged the patient's son to talked to patient's PCP, Dr. Morales for further discussions, son agrees. CAD s/p CABG x 3 Paroxysmal Atrial fibrillation - amiodarone gtt off, transitioned to oral 400 mg BID yesterday - Pt was previously admitted in Nov 2014 for melena, found to have a popliteal DVT and was started on lovenox and coumadin, then transitioned to plavix for anticoagulation as this reduced the risk or ulcers compared to coumadin or asa, with her pmhx of peptic ulcers - Continue to HOLD asa and plavix. Hypokalemia - Received a total of 20 meq IV, and then 60 meq orally throughout the day yesterday with improvement to 4.1, again this morning is 3.4. - Start daily dose of 20 meq at baseline today to keep up with electrolyte loss - reassess as needed. HTN - Cont verapamil 240 mg PO HS - Cont metoprolol succinate 25 mg daily Dyslipidemia - Cont service captain pravastatin MW Multiple Myeloma - Stable plasma dyscrasia, stage II. Followed by Dr. Jimmy Marquez saw the patient, will have follow-up as out patient - Received Zometa monthly last in Sep 2016, plan for no chemotherapy at this time - Follows with Dr. Rashid with [facility] Hyperparathyroidism - Cont CASH APPLICATIONS ASSOCIATE sensispar 30 mg daily Hypothyroidism - Cont levothyroxine 75 mcg daily - TSH level checked = 0.271 DVT ppx: no chemical anticoagulation with GI bleed, SCDs, teds CODE STATUS: Full Code, no mechanical ventilation Disposition: Pending [facility] approved for discharge to [facility] Total Time Spent: Greater than 30 minutes This includes examination of the patient, discharge planning, medication reconciliation, and communication with other providers. Discharge Instructions Please refer to the electronic Patient Visit Report (Discharge Instructions) for additional information. Additional Copies To Hussain Woody M.D.
[2017-01-04] MEDS ORDERED: ZVR400 PO (12:39)
[2017-01-04] MEDS ORDERED: PANT40TA PO (12:39)
[2017-01-04] MEDS ORDERED: SUCR1TAB PO (12:39)
[2017-01-04] MEDS ORDERED: GLUC500C4 PO (12:39)
[2017-01-04] MEDS ORDERED: AMIO200T4 PO (12:39)
[2017-01-04] MEDS ORDERED: ZOLE1INJ IV (13:04)
[2017-02-24] MEDS ORDERED: FRRS300 PO (10:00)
[2017-02-24] MEDS ORDERED: CPR500 PO (10:00)
[2017-02-24] MEDS ORDERED: AMIO200T4 PO (10:00)
[2017-03-16] MEDS ORDERED: POTA20TA16 PO (10:24)
[2017-03-16] MEDS ORDERED: GLUC500T35 PO (10:24)
[2017-03-16] MEDS ORDERED: ACYC1CAP8 PO (10:24)
[2017-03-16] MEDS ORDERED: CHOL1000 PO (10:24)
[2017-03-16] MEDS ORDERED: AMIO0.1T PO (10:24)
[2017-04-12] MEDS ORDERED: FERR1TAB23 PO (18:50)
[2017-04-12] MEDS ORDERED: XLD/500 PO (18:50)
== END 2016-12-15 16:18 | disposition home health service (06) | DRG 378 ==
LOC: ENRESERVTM → ENRESERVDT → EDBD 07:24 → C.EDA 07:26 → C.MSICU 11:50 → EDBEDREQ 12:35 → C.MSICU 12-09 18:49 → C.MED 12-12 11:13
PROVIDERS: ADMIT Hospitalist; ATTEND Hospitalist
PROC: 0DJ08ZZ Inspection of Upper Intestinal Tract, Via Natural or Artificial Opening Endoscopic (ICD-10-PCS; 2016-12-08)
PROC: 5A1945Z Respiratory Ventilation, 24-96 Consecutive Hours (ICD-10-PCS; principal; 2016-12-08 09:30)
DX: K92.2 Gastrointestinal hemorrhage, unspecified (principal); D62 Acute posthemorrhagic anemia; C90.00 Multiple myeloma not having achieved remission; I48.0 Paroxysmal atrial fibrillation; E03.9 Hypothyroidism, unspecified; E78.5 Hyperlipidemia, unspecified; I25.10 Atherosclerotic heart disease of native coronary artery without angina pectoris; K92.0 Hematemesis; E87.6 Hypokalemia; I25.2 Old myocardial infarction; K27.9 Peptic ulcer, site unspecified, unspecified as acute or chronic, without hemorrhage or perforation; K64.4 Residual hemorrhoidal skin tags; K44.9 Diaphragmatic hernia without obstruction or gangrene; K52.9 Noninfective gastroenteritis and colitis, unspecified; I10 Essential (primary) hypertension; R79.89 Other specified abnormal findings of blood chemistry; D72.829 Elevated white blood cell count, unspecified; T38.0X5A Adverse effect of glucocorticoids and synthetic analogues, initial encounter; T39.015A Adverse effect of aspirin, initial encounter; M54.9 Dorsalgia, unspecified; E21.3 Hyperparathyroidism, unspecified; Z95.1 Presence of aortocoronary bypass graft; Z86.718 Personal history of other venous thrombosis and embolism; Z95.828 Presence of other vascular implants and grafts; Z79.02 Long term (current) use of antithrombotics/antiplatelets; Z79.899 Other long term (current) drug therapy; Z79.52 Long term (current) use of systemic steroids

== ENCOUNTER → 2016-12-23 | Outpatient (CLI) | payer OTHER ==
[~2016-12-23] MED LIST changes: -ACYC-251 PO; +ACYC1CAP8 PO; +AMIO0.1T PO; +AMIO200T4 PO; +CHOL1000 PO; -CLOP1TAB15 PO; +CPR500 PO; +CRD200 PO; -Citracal PO; -DXM/4 PO; -ESTCR VAGRING; +FERR1TAB23 PO; -FLUO0.0543; +FRRS300 PO; +GLUC500C4 PO; +GLUC500T35 PO; -IMD/2 PO; -LORA-741 PO; -MAGN400T6 PO; -MULTCHW4 PO; +NITR1OIN; +PRED-301 PO; +PRT40 PO; -Prednisone PO; +SUCR1TAB PO; -TRIM100T20 PO; -VERA240C2 PO; +XLD/500 PO; +ZOLE1INJ IV; +ZVR400 PO
[2016-12-23 15:35] LABS: HEMATOCRIT 33.5 % (37-47)
[2016-12-23 15:37] LABS: URINE APPEARANCE CLOUDY (CLEAR); URINE BILIRUBIN NEG (NEG); URINE COLOR YELLOW; URINE EPITHELIAL CELL AUTO >30 /lpf (0-5); URINE NITRITE NEG (NEG); UROBILINOGEN NEG (NEG); ZZUR CULT IF INDIC CLEAN CATCH YES
[2016-12-23 15:48] LABS: MANUAL MICROSCOPIC REQUIRED? NO; REVIEW REQ? NO
[2016-12-23 15:57] LABS: BLOOD UREA NITROGEN 15 mg/dl (7-18); GLUCOSE 114 mg/dl (70-99)
[2016-12-23 15:58] LABS: BUN/CREATININE RATIO 19.7 (10-20); CALCIUM 8.6 mg/dl (8.5-10.1); CARBON DIOXIDE 24 mmol/L (21-32); CHLORIDE 107 mmol/L (98-107); CREATININE 0.78 mg/dl (0.60-1.20); POTASSIUM 4.1 mmol/L (3.5-5.1); SODIUM 140 mmol/L (136-145)
== END | disposition home or self-care (01) ==
LOC: C.LAB1850 14:28
PROVIDERS: ATTEND Family Medicine
DX: K92.2 Gastrointestinal hemorrhage, unspecified (principal); E87.6 Hypokalemia; R39.9 Unspecified symptoms and signs involving the genitourinary system

== ENCOUNTER → 2016-12-28 | Outpatient (CLI) | payer OTHER ==
[2016-12-28 16:30] LABS: BASO % 0.6 %; BASO ABS # 0.06 K/uL (0-0.2); COMPLETE YES; EOS % 0.5 %; HEMATOCRIT 33.4 % (37-47); IG% 0.4 %; LYMPH % 12.9 %; LYMPH ABS # 1.24 K/uL (1.2-3.4); MEAN CELL VOLUME 91.8 fL (80-100); MEAN CORPUSCULAR HEMOGLOBIN 29.7 pg (25-34); MEAN CORPUSCULAR HGB CONC 32.3 g/dl (32-36); MEAN PLATELET VOLUME 11.1 fL (7.4-10.4); MONO % 5.9 %; NEUT % 79.7 %; PLATELET COUNT 357 K/uL (130-400); RED BLOOD COUNT 3.64 M/uL (4.2-5.4); WHITE BLOOD COUNT 9.64 K/uL (4.8-10.8)
[2016-12-28 16:54] LABS: BLOOD UREA NITROGEN 18 mg/dl (7-18); BUN/CREATININE RATIO 22.8 (10-20); CALCIUM 8.8 mg/dl (8.5-10.1); CARBON DIOXIDE 25 mmol/L (21-32); CHLORIDE 104 mmol/L (98-107); CREATININE 0.79 mg/dl (0.60-1.20); GLUCOSE 102 mg/dl (70-99); POTASSIUM 3.8 mmol/L (3.5-5.1); SODIUM 139 mmol/L (136-145)
[2016-12-28 17:10] LABS: ALB/GLOB RATIO 1.3 (0.9-2); ALKALINE PHOSPHATASE 44 U/L (45-117); ALT/SGPT 13 U/L (12-78); AST/SGOT 12 U/L (15-37); IMMUNOGLOBULN A 37.1 mg/dL (70-400); IMMUNOGLOBULN M 26.9 mg/dL (40-230)
[2016-12-30 11:16] LABS: FREE KAPPA 48.2 MG/L (3.3-19.4); FREE KAPPA/LAMBDA RATIO 4.63 (0.26-1.65); FREE LAMBDA 10.4 MG/L (5.7-26.3)
== END | disposition home or self-care (01) ==
LOC: C.LAB1850 15:39
PROVIDERS: ATTEND Internal Medicine Hematology & Oncology
DX: C90.00 Multiple myeloma not having achieved remission (principal)

== ENCOUNTER → 2017-01-12 | Day surgery (SDC) | payer OTHER ==
[2017-01-04 12:50] VITALS: BMI 23.0
[~2017-01-12] VITALS: Ht 160 cm; Wt 60.9 kg
[~2017-01-12] MED LIST changes: +ACET-1311 PO; -CRD200 PO; -DIPH-416 PO; +LIDOCAINE HCL 2% 2 ML VIAL (20MG/ML) ONE; +LORA-741 PO; +METHPOW7; +MIDAZOLAM HCL 1 MG/ML 2ML VIAL ONE; -NITR1OIN; +ONDA4TAB46 PO; +ONDANSETRON INJ 2 MG/ML 2 ML VIAL ONE; +PROPOFOL IV EMULSION 10 MG/ML 20 ML VIAL IV ONE; -PRT40 PO
[2017-01-12 08:58] VITALS: TEMP 36.7
[2017-01-12 08:59] VITALS: Ht 160 cm; Wt 60.9 kg
--- NOTE | 2017-01-12 09:28 | Endo History and Physical ---
History & Physical Date of Service: Jan 12, 2017. Chief Complaint: CHRONIC DIARRHEA Referring Physician: DR VILLARREAL History of Present Illness 81 yo CF who presents for colonoscopy secondary to chronic diarrhea. Past Medical History Atrial Fibrillation, Osteoporosis, Arthritis, Gastrointestinal Disorder, Anxiety , Reflux, High Cholesterol, CABG, Heart Disease, Thrombophlebitis, Thyroid Disease Past Surgical History Hx Cardiac Surgery: Yes (HEART CATH, NO STENT; CABG X3 VESSELS) Hx Internal Defibrillator: No Hx Pacemaker: No Hx Abdominal Surgery: Yes (APPY, AMBER BSO) Hx of Implantable Prosthesis: No Hx Post-Op Nausea and Vomiting: No Hx Cancer Surgery: No Hx Thoracic Surgery: No Hx Orthopedic: Yes (RT KNEE SURGERY) Hx Urinary Tract Surgery: No Family History None Social History Smoking Status: Never Smoker Hx Substance Use: No Hx Alcohol Use: No Allergies Coded Allergies: Aspartame (Verified Allergy, Mild, HEADACHES, N/V, 01/04/17) Shellfish (Verified Allergy, Mild, HEADACHE AND N/V, 01/04/17) Ciprofloxacin (Verified Allergy, Unknown, ELEVATED BLOOD PRESSURE, 01/04/17 ) Iodinated Diagnostic Agents (Verified Allergy, Unknown, R/T SHELLFISH ALLERGY, 01/04/17) Nitrofurantoin (Verified Allergy, Unknown, GI UPSET AND ABDOMINAL PAIN/ SWELLING, 01/04/17) Quinolones (Verified Allergy, Unknown, CIPRO - ELEVATED BLOOD PRESSURE, ) Sulfa Antibiotics (Verified Allergy, Unknown, UNKNOWN - PT STATES DOES NOT REMEMBER, 01/04/17) Current Medications Reported Home Medications Medications Dose Route/Sig Max Daily Dose Days Date Category Dose Instructions Zometa (Zoledronic Acid) 4 Mg/100 Ml Inj 1 Dose IV [id number] 01/04/17 Reported NEXT INFUSION SCHEDULED 01-06-17 Sucralfate 1 Gm Tab 1 Gm PO QID 01/04/17 Reported Acyclovir 400 Mg Tab 1 Tab PO QPM 01/04/17 Reported Glucosamine (Glucosamine Sulfate) 500 Mg Cap 1 Tab PO LUNCH 01/04/17 Reported Protonix (Pantoprazole Sodium) 40 Mg Tab 40 Mg PO BID 01/04/17 Reported Cordarone (Amiodarone Hcl) 200 Mg Tab 200 Mg PO BID 01/04/17 Reported Prednisone 5 Mg Tab 5 Mg PO QAM 12/08/16 Reported Klor-Con (Potassium Chloride) 20 Meq Tabcr 20 Meq PO LUNCH 8/29/14 Reported Sensipar (Cinacalcet) 30 Mg Tab 30 Mg PO QAM 04/30/14 Reported Vitamin D 1000 Unit (Cholecalciferol) 1,000 Unit Cap 1,000 Inter.unit PO LUNCH 04/30/14 Reported Toprol Xl (Metoprolol Succinate) 50 Mg Tabcr 25 Mg PO QAM 04/30/14 Reported Synthroid (Levothyroxine Sodium) 75 Mcg Tab 75 Mcg PO QAM 04/30/14 Reported Pravachol (Pravastatin Sodium) 20 Mg Tab 20 Mg PO MWF 04/30/14 Reported TAKE AT BEDTIME Vital Signs Weight (Kilograms): 60.91 Height (Feet): 5 Height (Inches): 3 Date Time Temp Pulse Resp B/P Pulse Ox O2 Delivery O2 Flow Rate FiO2 01/12/17 08:58 36.7 63 20 184/75 97 Room Air Physical Exam General Appearance: WD/WN, no apparent distress Respiratory/Chest: Auscultation: breath sounds normal Cardiovascular: Heart Auscultation: RRR Abdomen: Bowel Sounds: normal Inspection & Palpation: soft, non-distended, no tenderness, guarding & rebound Assessment and Plan Assessment: 81 yo CF who presents for colonoscopy secondary to chronic diarrhea. Plan: Proceed with colonoscopy.
--- NOTE | 2017-01-12 10:04 | Discharge Instructions ---
Endoscopy Patient Instructions Date / Procedure(s) Performed Jan 12, 2017. Colonoscopy Allergy Information Coded Allergies: Aspartame (Verified Allergy, Mild, HEADACHES, N/V, 01/04/17) Shellfish (Verified Allergy, Mild, HEADACHE AND N/V, 01/04/17) Ciprofloxacin (Verified Allergy, Unknown, ELEVATED BLOOD PRESSURE, 01/04/17 ) Iodinated Diagnostic Agents (Verified Allergy, Unknown, R/T SHELLFISH ALLERGY, 01/04/17) Nitrofurantoin (Verified Allergy, Unknown, GI UPSET AND ABDOMINAL PAIN/ SWELLING, 01/04/17) Quinolones (Verified Allergy, Unknown, CIPRO - ELEVATED BLOOD PRESSURE, ) Sulfa Antibiotics (Verified Allergy, Unknown, UNKNOWN - PT STATES DOES NOT REMEMBER, 01/04/17) Discharge Date / Findings Jan 12, 2017. Diverticulosis Internal hemorrhoids Rectal mass extending through anal canal s/p biopsies Random colon biopsies Stool studies Provider Instructions Activity Restrictions - No exercising or heavy lifting for 24 hours. - Do not drink alcohol the day of the procedure. - Do not drive a car or operate machinery until the day after the procedure. - Do not make any important decisions or sign important papers in 24 hours after the procedure. Following Day: - Return to full activity which may include returning to work/school. Diet Start your diet with liquids and light foods (jello, soup, juice, toast). Then eat your usual diet if not nauseated. Treatment For Common After Affects For mild abdominal pain, bloating, or excessive gas: - Rest - Eat lightly - Lie on right side Follow-Up Information Follow-up with DR VILLARREAL as scheduled Anesthesia Information What You Should Know You have had a procedure that required some medicine to reduce anxiety and discomfort. This treatment is called moderate sedation. After receiving the treatment, you may be sleepy, but you will be able to breathe on your own. The effects of the treatment may last for several hours. Follow these instructions along with Activity/Diet recommendations noted above: * Do NOT do anything where dizziness or clumsiness would be dangerous. * Rest quietly at home today, then you can be up and about tomorrow. * Have a responsible person stay with you the rest of today. * You may have had an I.V. today. If so, you may take the dressing off later today. Recommendations Call your doctor if: * Trouble breathing * Continuous vomiting for more than 24 hours * Temperature above 101 degrees * Severe abdominal pain or bloating * Pain not relieved by pain medicine ordered * There is increased drainage or redness from any incision * A large amount of rectal bleeding greater than 2-3 tablespoons. (If you had a polyp/s removed or have hemorrhoids, a small amount of blood - from the rectum is to be expected.) * You have any unanswered questions or concerns. IN THE EVENT OF A SERIOUS EMERGENCY, GO TO THE NEAREST EMERGENCY ROOM Your discharge instructions were prepared by provider Tyron Maier. Patient Instructions Signature Page Elizabeth Maciel Patient (or Guardian) Signature/Date: I have read and understand the instructions given to me by my caregivers. Caregiver/RN/Doctor Signature/Date: The above-named patient and/or guardian has received patient instructions on this date. + Original Patient Signature Page (only) stays with chart. Please make copy for patient.
--- NOTE | 2017-01-12 10:13 | GI REPORT ---
Procedure Date: 01/12/2017 9:16 AM Procedure: Colonoscopy Indications: Chronic diarrhea Medicines: Monitored Anesthesia Care Complications: No immediate complications. Estimated Blood Loss: Estimated blood loss: none. Procedure: Pre-Anesthesia Assessment: - Prior to the procedure, a History and Physical was performed, and patient medications and allergies were reviewed. The patient's tolerance of previous anesthesia was also reviewed. The risks and benefits of the procedure and the sedation options and risks were discussed with the patient. All questions were answered, and informed consent was obtained. Prior Anticoagulants: The patient has taken no previous anticoagulant or antiplatelet agents. ASA Grade Assessment: III - A patient with severe systemic disease. After reviewing the risks and benefits, the patient was deemed in satisfactory condition to undergo the procedure. After I obtained informed consent, the scope was passed under direct vision. Throughout the procedure, the patient's blood pressure, pulse, and oxygen saturations were monitored continuously. The On-site loaner was introduced through the anus and advanced to the terminal ileum. The colonoscopy was performed without difficulty. The patient tolerated the procedure well. The quality of the bowel preparation was good. The terminal ileum, ileocecal valve, appendiceal orifice, and rectum were photographed. Findings: A polypoid non-obstructing large mass was found in the rectum. The mass was non-circumferential. The mass measured five cm in length. In addition, its diameter measured ten mm. No bleeding was present. This was biopsied with a cold forceps for histology. Multiple small-mouthed diverticula were found in the sigmoid colon. Non-bleeding internal hemorrhoids were found during retroflexion. The hemorrhoids were medium-sized. Several random biopsies were obtained with cold forceps for histology in the entire colon. Fluid aspiration for cytology was performed in the entire colon. 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 Biopsied. - Diverticulosis in the sigmoid colon. - Non-bleeding internal hemorrhoids. - Several random biopsies were obtained in the entire colon. - Fluid aspiration was performed. Recommendation: - Resume previous diet. - Continue present medications. - Await pathology results. - Refer to a colo-rectal surgeon in 1 week. - Return to primary care physician as previously scheduled. - Review of the patient's medical record reveals non-compliance with multiple recommendations to undergo further testing including colonoscopy several times in the past 2 years, and refusal to see colorectal surgery on multiple occasions. Tyron Maier, DO 01/12/2017 10:12:27 AM This report has been signed electronically. Note Initiated On: 01/12/2017 9:16 AM I attest to the content of the Intraoperative Record and orders documented therein, exceptions below
--- NOTE | 2017-01-12 10:25 | Anesthesiology Progress Note ---
Anesthesia Post Op Note Date & Time Jan 12, 2017 at 10:25 Vital Signs Pain Intensity: 0 Vital Signs Past 12 Hours Date Time Temp Pulse Resp B/P Pulse Ox O2 Delivery O2 Flow Rate FiO2 01/12/17 10:06 57 16 138/64 98 Room Air 01/12/17 08:58 36.7 63 20 184/75 97 Room Air Notes Mental Status: alert / awake / arousable, participated in evaluation Pt Amnestic to Procedure: Yes Nausea / Vomiting: adequately controlled Pain: adequately controlled Airway Patency, RR, SpO2: stable & adequate BP & HR: stable & adequate Hydration State: stable & adequate Anesthetic Complications: no major complications apparent
[2017-01-12 10:36] VITALS: BP 132/61; PULSE 56; O2SAT 99
[2017-01-12 12:25] LABS: BASO % 0.5 %; BASO ABS # 0.04 K/uL (0-0.2); COMPLETE YES; EOS % 0.9 %; HEMATOCRIT 32.7 % (37-47); IG% 0.4 %; LYMPH % 10.4 %; LYMPH ABS # 0.77 K/uL (1.2-3.4); MEAN CELL VOLUME 87.9 fL (80-100); MEAN CORPUSCULAR HEMOGLOBIN 29.6 pg (25-34); MEAN CORPUSCULAR HGB CONC 33.6 g/dl (32-36); MEAN PLATELET VOLUME 10.8 fL (7.4-10.4); MONO % 6.1 %; NEUT % 81.7 %; PLATELET COUNT 277 K/uL (130-400); RED BLOOD COUNT 3.72 M/uL (4.2-5.4); WHITE BLOOD COUNT 7.42 K/uL (4.8-10.8)
[2017-01-12 12:41] LABS: BUN/CREATININE RATIO 10.4 (10-20); C-REACTIVE PROTEIN 0.75 mg/dl (0-0.29); CALCIUM 7.6 mg/dl (8.5-10.1); CREATININE 0.71 mg/dl (0.60-1.20); POTASSIUM 3.1 mmol/L (3.5-5.1)
[2017-01-12 12:44] LABS: ALB/GLOB RATIO 0.9 (0.9-2)
== END | disposition home or self-care (01) ==
LOC: C.GI 08:19
PROVIDERS: ATTEND Internal Medicine
DX: D12.8 Benign neoplasm of rectum (principal); K52.9 Noninfective gastroenteritis and colitis, unspecified; K57.30 Diverticulosis of large intestine without perforation or abscess without bleeding; K64.8 Other hemorrhoids; E78.00 Pure hypercholesterolemia, unspecified; M81.0 Age-related osteoporosis without current pathological fracture; Z95.1 Presence of aortocoronary bypass graft

== ENCOUNTER → 2017-01-20 | Outpatient (CLI) | payer OTHER ==
[~2017-01-20] MED LIST changes: -LIDOCAINE HCL 2% 2 ML VIAL (20MG/ML) ONE; -MIDAZOLAM HCL 1 MG/ML 2ML VIAL ONE; -ONDANSETRON INJ 2 MG/ML 2 ML VIAL ONE; -PROPOFOL IV EMULSION 10 MG/ML 20 ML VIAL IV ONE
--- NOTE | 2017-01-20 15:32 | DIAGNOSTIC IMAGING REPORT ---
CT OF THE CHEST WITHOUT IV CONTRAST CLINICAL HISTORY: RECTAL CANCER COMPARISON STUDY: 06/23/2007 CT DOSE: 225.55 mGycm TECHNIQUE: CT of the thorax was performed from the thoracic inlet to the lung bases. Images are reviewed in the axial, sagittal, and coronal planes. IV contrast was not administered for this examination. FINDINGS: Thyroid: Imaged portions of the thyroid gland are normal in appearance. Thoracic aorta: There is dilatation of the ascending thoracic aorta which measures 42 mm. Heart: There are coronary artery calcifications present. Lungs and pleural spaces: No pleural effusions are visualized. There is no focal pulmonary consolidation. There is a 2 mm right upper lobe pulmonary nodule as visualized in image #[id number]. There is a 3 mm left lower lobe pulmonary nodule as visualized in image #[id number]. There is a 2 mm left lower lobe pulmonary nodule as visualized in image #[id number]. There is calcified granuloma within the lingula. These areas were obscured the prior study due to atelectasis. Mediastinum: There is no pathologic mediastinal lymphadenopathy. There is a small hiatal hernia. There is mild distal esophageal wall thickening. Loli: There is no evidence of pathologic adenopathy given the limitations of a noncontrast study Axilla: Clear. Upper abdomen: There is a 2 mm left renal calcification. Skeletal structures: There is a T12 and T7 vertebral body compression deformity. IMPRESSION: 1. No evidence of pathologic adenopathy 2. Dilatation of the ascending thoracic aorta which measures 42 mm 3. Nonspecific tiny pulmonary nodules, the largest of which measures 3 mm and is located within the left lower lobe. Given the history of a known primary malignancy, 3-6 month follow-up is recommended. Electronically signed by: Nehemiah Mccormack M.D. 01/20/2017 3:30 PM Dictated Date/Time: 01/20/2017 3:22 PM
== END | disposition home or self-care (01) ==
LOC: C.CTS 14:35
PROVIDERS: ATTEND Colon & Rectal Surgery
DX: C20 Malignant neoplasm of rectum (principal); I77.810 Thoracic aortic ectasia; R91.8 Other nonspecific abnormal finding of lung field

== ENCOUNTER → 2017-01-29 | Outpatient (CLI) | payer OTHER ==
[2017-01-29 10:56] LABS: BASO % 0.3 %; BASO ABS # 0.03 K/uL (0-0.2); COMPLETE YES; EOS % 0.5 %; HEMATOCRIT 34.6 % (37-47); IG% 0.5 %; LYMPH % 5.9 %; LYMPH ABS # 0.51 K/uL (1.2-3.4); MEAN CELL VOLUME 88.3 fL (80-100); MEAN CORPUSCULAR HEMOGLOBIN 28.8 pg (25-34); MEAN CORPUSCULAR HGB CONC 32.7 g/dl (32-36); MEAN PLATELET VOLUME 11.4 fL (7.4-10.4); MONO % 6.4 %; NEUT % 86.4 %; PLATELET COUNT 289 K/uL (130-400); RED BLOOD COUNT 3.92 M/uL (4.2-5.4); WHITE BLOOD COUNT 8.71 K/uL (4.8-10.8)
[2017-01-29 11:28] LABS: ALT/SGPT 13 U/L (12-78); BLOOD UREA NITROGEN 14 mg/dl (7-18); BUN/CREATININE RATIO 18.6 (10-20); CALCIUM 8.5 mg/dl (8.5-10.1); CARBON DIOXIDE 22 mmol/L (21-32); CHLORIDE 104 mmol/L (98-107); CREATININE 0.74 mg/dl (0.60-1.20); GLUCOSE 124 mg/dl (70-99); POTASSIUM 3.4 mmol/L (3.5-5.1); SODIUM 138 mmol/L (136-145)
[2017-01-29 11:40] LABS: ALB/GLOB RATIO 0.9 (0.9-2); ALKALINE PHOSPHATASE 37 U/L (45-117); AST/SGOT 11 U/L (15-37); IMMUNOGLOBULN M 29.4 mg/dL (40-230)
[2017-02-01 13:36] LABS: FREE KAPPA 35.3 MG/L (3.3-19.4); FREE KAPPA/LAMBDA RATIO 3.39 (0.26-1.65); FREE LAMBDA 10.4 MG/L (5.7-26.3)
== END | disposition home or self-care (01) ==
LOC: C.LAB1850 09:59
PROVIDERS: ATTEND Internal Medicine Hematology & Oncology
DX: C90.00 Multiple myeloma not having achieved remission (principal)

== ENCOUNTER → 2017-02-04 | Outpatient (CLI) | payer OTHER | END | disposition home or self-care (01) | LOC: C.LAB1850 12:27 | PROVIDERS: ATTEND Internal Medicine Cardiovascular Disease | DX: E03.9 Hypothyroidism, unspecified (principal) ==

== ENCOUNTER → 2017-02-11 | Outpatient (CLI) | payer OTHER ==
[~2017-02-11] MED LIST changes: -ACET-1311 PO; -LORA-741 PO; -METHPOW7; -ONDA4TAB46 PO
[2017-02-11 17:33] LABS: BASO % 0.5 %; BASO ABS # 0.04 K/uL (0-0.2); COMPLETE YES; EOS % 0.5 %; HEMATOCRIT 36.9 % (37-47); IG% 0.4 %; LYMPH % 8.7 %; LYMPH ABS # 0.73 K/uL (1.2-3.4); MEAN CELL VOLUME 88.1 fL (80-100); MEAN CORPUSCULAR HEMOGLOBIN 27.4 pg (25-34); MEAN CORPUSCULAR HGB CONC 31.2 g/dl (32-36); MEAN PLATELET VOLUME 11.9 fL (7.4-10.4); MONO % 3.7 %; NEUT % 86.2 %; PLATELET COUNT 323 K/uL (130-400); RED BLOOD COUNT 4.19 M/uL (4.2-5.4); WHITE BLOOD COUNT 8.35 K/uL (4.8-10.8)
[2017-02-11 17:43] LABS: ALT/SGPT 20 U/L (12-78); AST/SGOT 13 U/L (15-37); BLOOD UREA NITROGEN 12 mg/dl (7-18); BUN/CREATININE RATIO 14.1 (10-20); CALCIUM 8.3 mg/dl (8.5-10.1); CARBON DIOXIDE 24 mmol/L (21-32); CHLORIDE 103 mmol/L (98-107); CREATININE 0.82 mg/dl (0.60-1.20); GLUCOSE 125 mg/dl (70-99); POTASSIUM 3.8 mmol/L (3.5-5.1); SODIUM 137 mmol/L (136-145)
[2017-02-11 17:56] LABS: ALB/GLOB RATIO 0.8 (0.9-2); ALKALINE PHOSPHATASE 46 U/L (45-117); IMMUNOGLOBULN A 71.1 mg/dL (70-400); IMMUNOGLOBULN M 44.1 mg/dL (40-230)
[2017-02-11 18:05] LABS: CHOLESTEROL/HDL RATIO 2.8; THYROID STIMULATING HORMONE 2.32 uIu/ml (0.300-4.500)
== END | disposition home or self-care (01) ==
LOC: C.LABBFT 11:49
PROVIDERS: ATTEND Internal Medicine Hematology & Oncology
DX: C90.00 Multiple myeloma not having achieved remission (principal); E03.9 Hypothyroidism, unspecified; I25.10 Atherosclerotic heart disease of native coronary artery without angina pectoris

== ENCOUNTER 2017-02-17 16:36 | Inpatient (IN) | payer OTHER ==
[~2017-02-17] VITALS: Ht 160 cm; Wt 59.0 kg
[~2017-02-17 16:36] MED LIST changes: -ACYC1CAP8 PO; -AMIO0.1T PO; -CHOL1000 PO; -CPR500 PO; -FERR1TAB23 PO; -FRRS300 PO; -GLUC500T35 PO; -XLD/500 PO
[2017-02-17] MEDS ORDERED: SODIUM CHLORIDE 0.9% 1000ML 1,000 ML IV STA (17:58)
[2017-02-17] MEDS ORDERED: SODIUM CHLORIDE 0.9% 1000ML 500 ML IV STA (17:58)
--- NOTE | 2017-02-17 18:06 | EMERGENCY ROOM VISIT NOTE ---
History Report prepared by Ambrosio: Simone Cuevas Under the Supervision of: Dr. Sridhar Santiago M.D. First contact with patient: 17:49 Chief Complaint: FEVER Stated Complaint: FEVER- S/P SURGERY History of Present Illness The patient is a 81 year old female who presents to the Emergency Room with complaints of a persistent fever beginning 2 days ago. She had a resection of a rectal tumor [address] Carr, and the tumor was thought to be cancerous. She had been taking oxy and Tylenol for pain which has caused her to feel weak and "like jelly". She notes she has not been urinating frequently and feels dry and thirsty, but has been keeping up with her fluids. She denies any burning or pain with urination, and denies having any cough or shortness of breath. She has been passing gas since the surgery, but has not been having any bowel movements. Her family notes she may be somewhat paler today than at baseline. She notes having nausea, even at the thought of eating. Source of History: patient Onset: 2 days ago Position: other (global) Quality: other (fever) Timing: other (persistent) Associated Symptoms: + nausea, + urinary symptoms (not as frequent but without burning or pain), + weakness, No SOB, No cough Review of Systems See HPI for pertinent positives & negatives. A total of 10 systems reviewed and were otherwise negative. 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) (3) S/P hysterectomy Family History Diabetes Hypertension Social History Smoking Status: Never Smoker Alcohol Use: none Drug Use: none Housing Status: lives with significant other Occupation Status: retired Current/Historical Medications Scheduled Acyclovir (Acyclovir), 1 TAB PO QPM Amiodarone Hcl (Cordarone), 200 MG PO BID Cholecalciferol (Vitamin D 1000 Unit), 1,000 INTER.UNIT PO LUNCH Cinacalcet (Sensipar), 30 MG PO QAM Glucosamine Sulfate (Glucosamine), 1 TAB PO LUNCH Levothyroxine Sodium (Synthroid), 75 MCG PO QAM Metoprolol Succinate (Toprol Xl), 25 MG PO QAM Pantoprazole (Protonix), 40 MG PO BID Potassium Ext Rel (Klor-Con), 20 MEQ PO LUNCH Pravastatin (Pravachol ), 20 MG PO MWF Prednisone (Prednisone), 5 MG PO QAM Sucralfate (Sucralfate), 1 GM PO QID Zoledronic Acid (Zometa), 1 DOSE IV [id number] Allergies Coded Allergies: Aspartame (Verified Allergy, Mild, HEADACHES, N/V, 02/17/17) Shellfish (Verified Allergy, Mild, HEADACHE AND N/V, 02/17/17) Ciprofloxacin (Verified Allergy, Unknown, ELEVATED BLOOD PRESSURE, 02/17/17 ) Iodinated Diagnostic Agents (Verified Allergy, Unknown, R/T SHELLFISH ALLERGY, 02/17/17) Nitrofurantoin (Verified Allergy, Unknown, GI UPSET AND ABDOMINAL PAIN/ SWELLING, 02/17/17) Quinolones (Verified Allergy, Unknown, CIPRO - ELEVATED BLOOD PRESSURE, ) Sulfa Antibiotics (Verified Allergy, Unknown, UNKNOWN - PT STATES DOES NOT REMEMBER, 02/17/17) Physical Exam Vital Signs Date Time Temp Pulse Resp B/P Pulse Ox O2 Delivery O2 Flow Rate FiO2 02/17/17 20:37 69 19 156/67 95 Room Air 02/17/17 19:05 70 17 160/58 93 Room Air 02/17/17 18:02 60 02/17/17 17:46 61 16 146/59 99 Room Air 02/17/17 16:51 37.3 59 18 108/46 95 Room Air Physical Exam GENERAL: Patient is in no acute distress. HEENT: No acute trauma, normocephalic atraumatic, mucous membranes dry, no nasal congestion, no scleral icterus. NECK: No stridor, no adenopathy, no meningismus, trachea is midline. LUNGS: Crackles at both bases, mostly on the right. No wheezing. Breath sounds are equal. HEART: Without murmurs gallops or rubs, regular rate and rhythm. ABDOMEN: Soft. Tenderness in the left lower quadrant; bowel sounds positive, no hernias, no peritonitis. EXTREMITIES: No cyanosis or edema, full range of motion of all the joints without pain or difficulty, no signs for acute trauma. NEUROLOGIC: Oriented x 3, no acute motor or sensory deficits, no focal weakness. SKIN: No rash, no jaundice, no diaphoresis. Skin is pale. Medical Decision & Procedures ER Provider Diagnostic Interpretation: Radiology results and stated below per my review and radiologist interpretation: CHEST ONE VIEW PORTABLE FINDINGS: Mild cardiomegaly. Prior median sternotomy. Minimal infiltrate left base. Lungs otherwise appear clear. IMPRESSION: Small parenchymal infiltrate left base Electronically signed by: Miguel Luciano M.D. 02/17/2017 6:15 PM Dictated Date/Time: 02/17/2017 6:14 [address] AND P[address] CT WITHOUT CONTRAST FINDINGS: Limited exam due to the absence of oral contrast. Bibasilar atelectasis. Fixed hiatal hernia. Mild fullness right renal pelvis although this is unchanged in the prior study. Inferior vena caval filter unchanged. Upper abdominal bowel pattern is considered nonobstructive Within the pelvis bladder is midline. There is been bladder suspension procedure. There is suggestion of either infiltrative change versus complex fluid within the posterior cul-de-sac. This is not present on the prior exam. Moderate increase in fecal load within the sigmoid. No evidence for pneumatosis or free air. IMPRESSION: 1. Complex free fluid within the pelvic cul-de-sac versus the less likely possibility of a low density mass given the interval change compared to the prior study dated 12/08/2016. 2. Possibility of hemorrhagic fluid within the pelvic cul-de-sac is also considered. 3. Otherwise no acute process of the abdomen or pelvis. 4. Postoperative changes including bladder suspension procedure and inferior vena caval stent placement stable from the prior exam. 5. Nonobstructive bowel pattern Electronically signed by: Miguel Luciano M.D. 02/17/2017 7:29 PM Dictated Date/Time: 02/17/2017 7:23 PM Laboratory Results 02/17/17 19:27 Red Blood Count 3.45, Mean Corpuscular Volume 82.9, Mean Corpuscular Hemoglobin 27.5, Mean Corpuscular Hemoglobin Concent 33.2, Mean Platelet Volume 10.8, Neutrophils (%) (Auto) 89.7, Lymphocytes (%) (Auto) 5.0, Monocytes (%) (Auto) 4.8, Eosinophils (%) (Auto) 0.0, Basophils (%) (Auto) 0.1, Neutrophils # (Auto) 19.41, Lymphocytes # (Auto) 1.09, Monocytes # (Auto) 1.03, Eosinophils # (Auto) 0.01, Basophils # (Auto) 0.02 02/17/17 19:27 Test 02/17/17 19:27 02/17/17 19:53 White Blood Count 21.64 K/uL (4.8-10.8) Red Blood Count 3.45 M/uL (4.2-5.4) Hemoglobin 9.5 g/dL (12.0-16.0) Hematocrit 28.6 % (37-47) Mean Corpuscular Volume 82.9 fL (80-100) Mean Corpuscular Hemoglobin 27.5 pg (25-34) Mean Corpuscular Hemoglobin Concent 33.2 g/dl (32-36) Platelet Count 255 K/uL (130-400) Mean Platelet Volume 10.8 fL (7.4-10.4) Neutrophils (%) (Auto) 89.7 % Lymphocytes (%) (Auto) 5.0 % Monocytes (%) (Auto) 4.8 % Eosinophils (%) (Auto) 0.0 % Basophils (%) (Auto) 0.1 % Neutrophils # (Auto) 19.41 K/uL (1.4-6.5) Lymphocytes # (Auto) 1.09 K/uL (1.2-3.4) Monocytes # (Auto) 1.03 K/uL (0.11-0.59) Eosinophils # (Auto) 0.01 K/uL (0-0.5) Basophils # (Auto) 0.02 K/uL (0-0.2) RDW Standard Deviation 45.6 fL (36.4-46.3) RDW Coefficient of Variation 15.0 % (11.5-14.5) Immature Granulocyte % (Auto) 0.4 % Immature Granulocyte # (Auto) 0.08 K/uL (0.00-0.02) Prothrombin Time 11.4 SECONDS (9.0-12.0) Prothromb Time International Ratio 1.1 (0.9-1.1) Activated Partial Thromboplast Time 28.9 SECONDS (21.0-31.0) Partial Thromboplastin Ratio 1.1 Anion Gap 8.0 mmol/L (3-11) Est Creatinine Clear Calc Drug Dose 49.0 ml/min Estimated GFR () 89.8 Estimated GFR (Non- 77.4 BUN/Creatinine Ratio 19.0 (10-20) Calcium Level 7.7 mg/dl (8.5-10.1) Magnesium Level 1.8 mg/dl (1.8-2.4) Total Bilirubin 0.7 mg/dl (0.2-1) Aspartate Amino Transf (AST/SGOT) 17 U/L (15-37) Alanine Aminotransferase (ALT/SGPT) 15 U/L (12-78) Alkaline Phosphatase 52 U/L (45-117) Troponin I < 0.015 ng/ml (0-0.045) Total Protein 6.3 gm/dl (6.4-8.2) Albumin 2.8 gm/dl (3.4-5.0) Globulin 3.5 gm/dl (2.5-4.0) Albumin/Globulin Ratio 0.8 (0.9-2) Thyroid Stimulating Hormone (TSH) 0.636 uIu/ml (0.300-4.500) Urine Color YELLOW Urine Appearance CLEAR (CLEAR) Urine pH 5.0 (4.5-7.5) Urine Specific [place] 1.013 (1.000-1.030) Urine Protein NEG (NEG) Urine Glucose (UA) NEG (NEG) Urine Ketones NEG (NEG) Urine Occult Blood NEG (NEG) Urine Nitrite POS (NEG) Urine Bilirubin NEG (NEG) Urine Urobilinogen NEG (NEG) Urine Leukocyte Esterase TRACE (NEG) Urine WBC (Auto) 1-5 /hpf (0-5) Urine RBC (Auto) 0-4 /hpf (0-4) Urine Hyaline Casts (Auto) 1-5 /lpf (0-5) Urine Epithelial Cells (Auto) 10-20 /lpf (0-5) Urine Bacteria (Auto) 3+ (NEG) Laboratory results reviewed by me. Medications Administered Medications (Trade) Dose Ordered Sig/Timo Route Start Time Stop Time Status Last Admin Dose Admin Sodium Chloride 500 ml @ 999 mls/hr Q31M STAT IV 02/17/17 17:58 02/17/17 18:28 DC 02/17/17 18:33 999 MLS/HR Sodium Chloride (Nss 1000ml) 1,000 ml @ 125 mls/hr Q8H STAT IV 02/17/17 17:58 02/17/17 22:53 DC 02/17/17 18:33 125 MLS/HR Piperacillin Sod/ Tazobactam Sod (Zosyn Iv) 4.5 gm NOW STAT IV 02/17/17 19:47 02/17/17 19:48 DC 02/17/17 20:36 4.5 GM Pravastatin Sodium (Pravachol Tab) 20 mg MoWeFr@2100 PO 02/17/17 21:00 03/19/17 20:59 02/18/17 00:36 20 MG ECG Indication: other (fever) Rate (beats per minute): 60 Rhythm: normal sinus Findings: no acute ischemic change, no ectopy, other (LVH) ED Course 1751: The patient was evaluated in room B3B. A complete history and physical exam was performed. 1757: Ordered NSS 1,000 ml @ 125 mls/hr IV, and NSS 500 ml @ 999 mls/hr IV. 1946: Ordered Zosyn Iv 4.5 gm IV. 2018: I updated the patient. 2024: Discussed the patient's case with Dr. Crawley. The patient will be evaluated for further management. Medical Decision Differentials include dehydration, anemia, electrolyte imbalance, UTI, bowel obstruction, diverticulitis, surgical site infection, pneumonia, and LA. There is a significant leukocytosis at 21,000, this could be consistent with infection. The patient is anemic and she has had about a 2 point hemoglobin drop based on previous testing. Urinalysis is suggestive of infection, urine culture is pending, blood cultures are pending. There was no significant electrolyte abnormality, kidney failure or hepatitis. Abdominal and pelvis CT shows fluid in the pelvis consistent with possible blood-this would be consistent with the recent surgery. No abscess seen. No bowel obstruction. Chest film suggests a possible left basilar pneumonia. There was no coagulopathy. The patient received IV saline, IV Zosyn. She has done well, she is resting comfortably. Given the recent surgery, given the possible pneumonia and the UTI, given her anemia, admission/observation was felt warranted. I did speak to the patient and to case management. The on-call hospitalist was consulted. Consults Time Called: 2004 Consulting Physician: Dr[place] [facility] [place]ed Call: 2024 Discussed the patient's case with Dr. Crawley. The patient will be evaluated for further management. Impression Primary Impression: Urinary tract infection Additional Impressions: PNA (pneumonia) Anemia Scribe Attestation The scribe's documentation has been prepared under my direction and personally reviewed by me in its entirety. I confirm that the note above accurately reflects all work, treatment, procedures, and medical decision making performed by me. Departure Information Dispostion Being Evaluated By Hospitalist Referrals Pro,Hussain Silva M.D. (PCP) Patient Instructions My [facility] Problem Qualifiers
--- NOTE | 2017-02-17 18:16 | DIAGNOSTIC IMAGING REPORT ---
CHEST ONE VIEW PORTABLE CLINICAL HISTORY: EVALUATE ALTERED MENTAL STATUS/WEAKNESS dyspnea COMPARISON STUDY: 12/08/2016 FINDINGS: Mild cardiomegaly. Prior median sternotomy. Minimal infiltrate left base. Lungs otherwise appear clear. IMPRESSION: Small parenchymal infiltrate left base Electronically signed by: Miguel Luciano M.D. 02/17/2017 6:15 PM Dictated Date/Time: 02/17/2017 6:14 PM
--- NOTE | 2017-02-17 19:30 | DIAGNOSTIC IMAGING REPORT ---
ABDOMEN AND PELVIS CT WITHOUT CONTRAST CT DOSE: 264.99 mGy.cm HISTORY: Pain ABD. PAIN. POSSIBLE OBS TECHNIQUE: Multiaxial CT images of the abdomen and pelvis were performed without contrast. COMPARISON STUDY: 12/08/2016 FINDINGS: Limited exam due to the absence of oral contrast. Bibasilar atelectasis. Fixed hiatal hernia. Mild fullness right renal pelvis although this is unchanged in the prior study. Inferior vena caval filter unchanged. Upper abdominal bowel pattern is considered nonobstructive Within the pelvis bladder is midline. There is been bladder suspension procedure. There is suggestion of either infiltrative change versus complex fluid within the posterior cul-de-sac. This is not present on the prior exam. Moderate increase in fecal load within the sigmoid. No evidence for pneumatosis or free air. IMPRESSION: 1. Complex free fluid within the pelvic cul-de-sac versus the less likely possibility of a low density mass given the interval change compared to the prior study dated 12/08/2016. 2. Possibility of hemorrhagic fluid within the pelvic cul-de-sac is also considered. 3. Otherwise no acute process of the abdomen or pelvis. 4. Postoperative changes including bladder suspension procedure and inferior vena caval stent placement stable from the prior exam. 5. Nonobstructive bowel pattern Electronically signed by: Miguel Luciano M.D. 02/17/2017 7:29 PM Dictated Date/Time: 02/17/2017 7:23 PM
[2017-02-17 19:40] LABS: HEMATOCRIT 28.6 % (37-47); MEAN CELL VOLUME 82.9 fL (80-100); MEAN CORPUSCULAR HEMOGLOBIN 27.5 pg (25-34); MEAN CORPUSCULAR HGB CONC 33.2 g/dl (32-36); MEAN PLATELET VOLUME 10.8 fL (7.4-10.4); PLATELET COUNT 255 K/uL (130-400); RED BLOOD COUNT 3.45 M/uL (4.2-5.4); WHITE BLOOD COUNT 21.64 K/uL (4.8-10.8)
[2017-02-17] MEDS ORDERED: PIPERACILLIN/TAZOBACTAM 4.5 GM/100ML D5W IV STA (19:47)
[2017-02-17 19:51] LABS: INR 1.1 (0.9-1.1); PARTIAL THROMBOPLASTIN RATIO 1.1; PROTHROMBIN TIME (PATIENT) 11.4 SECONDS (9.0-12.0)
[2017-02-17 19:56] LABS: BASO % 0.1 %; BASO ABS # 0.02 K/uL (0-0.2); COMPLETE YES; IG% 0.4 %; LYMPH ABS # 1.09 K/uL (1.2-3.4); MONO % 4.8 %; NEUT % 89.7 %
[2017-02-17 20:02] LABS: ALT/SGPT 15 U/L (12-78); BLOOD UREA NITROGEN 14 mg/dl (7-18); CALCIUM 7.7 mg/dl (8.5-10.1); CARBON DIOXIDE 24 mmol/L (21-32); CHLORIDE 101 mmol/L (98-107); CREATININE 0.72 mg/dl (0.60-1.20); GLUCOSE 97 mg/dl (70-99); MAGNESIUM 1.8 mg/dl (1.8-2.4); POTASSIUM 3.4 mmol/L (3.5-5.1); SODIUM 133 mmol/L (136-145)
[2017-02-17 20:05] LABS: URINE APPEARANCE CLEAR (CLEAR); URINE BILIRUBIN NEG (NEG); URINE COLOR YELLOW; URINE NITRITE POS (NEG); URINE SPECIFIC GRAVITY 1.013 (1.000-1.030); UROBILINOGEN NEG (NEG); ZZURINE CULT IF INDIC CATH YES
[2017-02-17 20:08] LABS: MANUAL MICROSCOPIC REQUIRED? NO; REVIEW REQ? NO
[2017-02-17 20:12] LABS: ALB/GLOB RATIO 0.8 (0.9-2); ALKALINE PHOSPHATASE 52 U/L (45-117); AST/SGOT 17 U/L (15-37); THYROID STIMULATING HORMONE 0.636 uIu/ml (0.300-4.500)
[2017-02-17] MEDS ORDERED: ONDANSETRON INJ 2 MG/ML 2 ML VIAL IV PRN (22:00)
--- NOTE | 2017-02-17 22:27 | History and Physical ---
History & Physical Date & Time of Service: Feb 17, 2017 at 22:27 Chief Complaint: Fever- S/P Surgery Primary Care Physician: Hussain Woody M.D. History of Present Illness Source: patient The patient is aN 81-year-old female who presents emergency department with complaint of a persistent temperature elevation that began 2 days prior to arrival. She underwent a rectal tumor resection by Dr. Mcpherson at [facility] 2 days ago. Since then she's been taking oxycodone with Tylenol for pain which makes her feel weak and like jelly. She reports that she feels fatigued, dry and thirsty, and has been trying to keep up with her fluids. She denies any urinary symptoms, cough or shortness of breath. She has been passing gas since surgery but has not yet had a bowel movement. She has had nausea, but no vomiting. Past Medical/Surgical History Medical Problems: (1) Coronary artery disease Status: Chronic (2) Hypertension Status: Chronic Surgical Problems: (1) History of rectal tumor resection Status: Resolved (2) S/P CABG (coronary artery bypass graft) Status: Resolved (3) S/P hysterectomy Status: Chronic Family History Diabetes Hypertension Social History Smoking Status: Never Smoker Smokeless Tobacco Use: No Alcohol Use: none Drug Use: none Occupational Status: retired Immunizations History of Influenza Vaccine: Yes History of Tetanus Vaccine?: unknown History of Pneumococcal: Yes History of Hepatitis B Vaccine: Yes Multi-Drug Resistant Organisms History of MDRO: No Allergies Coded Allergies: Aspartame (Verified Allergy, Mild, HEADACHES, N/V, 02/17/17) Shellfish (Verified Allergy, Mild, HEADACHE AND N/V, 02/17/17) Ciprofloxacin (Verified Allergy, Unknown, ELEVATED BLOOD PRESSURE, 02/17/17 ) Iodinated Diagnostic Agents (Verified Allergy, Unknown, R/T SHELLFISH ALLERGY, 02/17/17) Nitrofurantoin (Verified Allergy, Unknown, GI UPSET AND ABDOMINAL PAIN/ SWELLING, 02/17/17) Quinolones (Verified Allergy, Unknown, CIPRO - ELEVATED BLOOD PRESSURE, ) Sulfa Antibiotics (Verified Allergy, Unknown, UNKNOWN - PT STATES DOES NOT REMEMBER, 02/17/17) Home Medications Scheduled Acyclovir (Acyclovir), 1 TAB PO QPM Amiodarone Hcl (Cordarone), 200 MG PO BID Cholecalciferol (Vitamin D 1000 Unit), 1,000 INTER.UNIT PO LUNCH Cinacalcet (Sensipar), 30 MG PO QAM Glucosamine Sulfate (Glucosamine), 1 TAB PO LUNCH Levothyroxine Sodium (Synthroid), 75 MCG PO QAM Metoprolol Succinate (Toprol Xl), 25 MG PO QAM Pantoprazole (Protonix), 40 MG PO BID Potassium Ext Rel (Klor-Con), 20 MEQ PO LUNCH Pravastatin (Pravachol ), 20 MG PO MWF Prednisone (Prednisone), 5 MG PO QAM Sucralfate (Sucralfate), 1 GM PO QID Zoledronic Acid (Zometa), 1 DOSE IV [id number] Review of Systems The patient denies chest pain, palpitations, shortness of breath, cough, lower extremity swelling, vision change, hearing change, sore throat, fevers, chills, sweats, vomiting, abdominal pain, pelvic pain, blood in urine or stool, dysuria , urinary frequency or urgency, memory loss, rash, abnormal bruising or bleeding , imbalance, focal weakness, numbness or tingling in arms or legs, night sweats, or allergy symptoms. The review of systems is otherwise negative other than for that already noted above, and at least 10 systems have been reviewed. Physical Exam Vital Signs Date Time Temp Pulse Resp B/P Pulse Ox O2 Delivery O2 Flow Rate FiO2 02/17/17 22:16 66 18 140/55 96 Room Air 02/17/17 21:52 66 16 139/51 95 Room Air 02/17/17 20:37 69 19 156/67 95 Room Air 02/17/17 19:05 70 17 160/58 93 Room Air 02/17/17 18:02 60 02/17/17 17:46 61 16 146/59 99 Room Air 02/17/17 16:51 37.3 59 18 108/46 95 Room Air The patient is awake, alert and oriented 3, normocephalic and atraumatic, looks fatigued, lying in bed and in no acute distress. HEENT--PERRL, EOMI, mucous membranes and oropharynx dry. Neck--supple, no JVD or bruits, thyroid normal, trachea midline, no adenopathy. Heart--normal S1 and S2, no extra beats, no murmurs, rubs or gallops. Lungs--clear bilaterally, no respiratory distress, no accessory muscle use. Abdomen--normal bowel sounds and soft, nontender and nondistended, no hernias or masses, no organomegaly. Extremities--no cyanosis, clubbing or edema. There are good distal pulses b/l. Dermatologic--normal skin turgor, normal color, warm and dry, no abnormal lymph nodes, no rash. Neurologic--cranial nerves II through XII grossly intact. Rheumatologic--deferred Psychiatric--normal affect. Diagnostics Laboratory Results Results Past 24 Hours Test 02/17/17 19:27 02/17/17 19:53 Range/Units White Blood Count 21.64 4.8-10.8 K/uL Red Blood Count 3.45 4.2-5.4 M/uL Hemoglobin 9.5 12.0-16.0 g/dL Hematocrit 28.6 37-47 % Mean Corpuscular Volume 82.9 80-100 fL Mean Corpuscular Hemoglobin 27.5 25-34 pg Mean Corpuscular Hemoglobin Concent 33.2 32-36 g/dl Platelet Count 255 130-400 K/uL Mean Platelet Volume 10.8 7.4-10.4 fL Neutrophils (%) (Auto) 89.7 % Lymphocytes (%) (Auto) 5.0 % Monocytes (%) (Auto) 4.8 % Eosinophils (%) (Auto) 0.0 % Basophils (%) (Auto) 0.1 % Neutrophils # (Auto) 19.41 1.4-6.5 K/uL Lymphocytes # (Auto) 1.09 1.2-3.4 K/uL Monocytes # (Auto) 1.03 0.11-0.59 K/uL Eosinophils # (Auto) 0.01 0-0.5 K/uL Basophils # (Auto) 0.02 0-0.2 K/uL RDW Standard Deviation 45.6 36.4-46.3 fL RDW Coefficient of Variation 15.0 11.5-14.5 % Immature Granulocyte % (Auto) 0.4 % Immature Granulocyte # (Auto) 0.08 0.00-0.02 K/uL Prothrombin Time 11.4 9.0-12.0 SECONDS Prothromb Time International Ratio 1.1 0.9-1.1 Activated Partial Thromboplast Time 28.9 21.0-31.0 SECONDS Partial Thromboplastin Ratio 1.1 Sodium Level 133 136-145 mmol/L Potassium Level 3.4 3.5-5.1 mmol/L Chloride Level 101 98-107 mmol/L Carbon Dioxide Level 24 21-32 mmol/L Anion Gap 8.0 3-11 mmol/L Blood Urea Nitrogen 14 7-18 mg/dl Creatinine 0.72 0.60-1.20 mg/dl Est Creatinine Clear Calc Drug Dose 49.0 ml/min Estimated GFR () 89.8 Estimated GFR (Non- 77.4 BUN/Creatinine Ratio 19.0 10-20 Random Glucose 97 70-99 mg/dl Calcium Level 7.7 8.5-10.1 mg/dl Magnesium Level 1.8 1.8-2.4 mg/dl Total Bilirubin 0.7 0.2-1 mg/dl Aspartate Amino Transf (AST/SGOT) 17 15-37 U/L Alanine Aminotransferase (ALT/SGPT) 15 12-78 U/L Alkaline Phosphatase 52 45-117 U/L Troponin I < 0.015 0-0.045 ng/ml Total Protein 6.3 6.4-8.2 gm/dl Albumin 2.8 3.4-5.0 gm/dl Globulin 3.5 2.5-4.0 gm/dl Albumin/Globulin Ratio 0.8 0.9-2 Thyroid Stimulating Hormone (TSH) 0.636 0.300-4.500 uIu/ml Urine Color YELLOW Urine Appearance CLEAR CLEAR Urine pH 5.0 4.5-7.5 Urine Specific Mathews 1.013 1.000-1.030 Urine Protein NEG NEG Urine Glucose (UA) NEG NEG Urine Ketones NEG NEG Urine Occult Blood NEG NEG Urine Nitrite POS NEG Urine Bilirubin NEG NEG Urine Urobilinogen NEG NEG Urine Leukocyte Esterase TRACE NEG Urine WBC (Auto) 1-5 0-5 /hpf Urine RBC (Auto) 0-4 0-4 /hpf Urine Hyaline Casts (Auto) 1-5 0-5 /lpf Urine Epithelial Cells (Auto) 10-20 0-5 /lpf Urine Bacteria (Auto) 3+ NEG Microbiology Results 02/17/17 Blood Culture, Received Pending 02/17/17 Blood Culture, Received Pending 02/17/17 Urine Culture, Received Pending Diagnostic Radiology Patient Name: CHATO BONILLA Unit Number: [id number] Dictated: 02/17/171813 Transcribed: 02/17/171813 MS Printed Date/Time: [~ rep prt dt]/[~ rep prt tm] [~ rep ct labl] - [~ rep ct ivnm] [facility] [place] [address] Dictated: 02/17/171813 Transcribed: 02/17/171813 MS Printed Date/Time: [~ rep prt dt]/[~ rep prt tm] [~ rep ct labl] - [~ rep ct ivnm] CHEST ONE VIEW PORTABLE CLINICAL HISTORY: EVALUATE ALTERED MENTAL STATUS/WEAKNESS dyspnea COMPARISON STUDY: 12/08/2016 FINDINGS: Mild cardiomegaly. Prior median sternotomy. Minimal infiltrate left base. Lungs otherwise appear clear. IMPRESSION: Small parenchymal infiltrate left base Electronically signed by: Miguel Luciano M.D. 02/17/2017 6:15 PM Dictated Date/Time: 02/17/2017 6:14 PM The status of this report is Signed. Draft = Not yet reviewed or approved by Radiologist. Signed = Reviewed and approved by Radiologist. <AttendingPhy></AttendingPhy> <FamilyPhy>Hussain Woody M.D.</FamilyPhy> < PrimaryPhy>Hussain Woody M.D.</PrimaryPhy> <UnitNumber>[id number]</UnitNumber > <VisitNumber>[id number]</VisitNumber> <PatientName>CHATO BONILLA</ PatientName> <DateOfBirth>1935</DateOfBirth> <Location>C.EDB</Location> < ServiceDate>02/17/17</ServiceDate> <MNE>ESINDI</MNE> <OrderingPhy>Sridhar Santiago M.D.</OrderingPhy> <OrderingPhyMNE>f rep ord dr castaneda</OrderingPhyMNE> < DictatingPhyMNE>f rep dict dr castaneda</DictatingPhyMNE> <CCListMNE>f rep ct mne</ CCListMNE> <AdmittingPhyMNE>f pt admit dr castaneda</AdmittingPhyMNE> <AttendingPhyMNE >f pt attend dr castaneda</AttendingPhyMNE> <ConsultingPhyMNE>f pt consult dr castaneda</ConsultingPhyMNE> <FamilyPhyMNE>f pt fam dr castaneda</FamilyPhyMNE> <OtherPhyMNE>f pt other dr castaneda</OtherPhyMNE> < PrimaryPhyMNE>f pt prim care dr castaneda</PrimaryPhyMNE> <ReferringPhyMNE>f pt referring dr castaneda</ReferringPhyMNE> Patient Name: CHATO BONILLA Unit Number: [id number] Dictated: 02/17/171922 Transcribed: 02/17/171922 MS Printed Date/Time: [~ rep prt dt]/[~ rep prt tm] [~ rep ct labl] - [~ rep ct ivnm] [facility] [place] [address] Dictated: 02/17/171922 Transcribed: 02/17/171922 MS Printed Date/Time: [~ rep prt dt]/[~ rep prt tm] [~ rep ct labl] - [~ rep ct ivnm] ABDOMEN AND PELVIS CT WITHOUT CONTRAST CT DOSE: 264.99 mGy.cm HISTORY: Pain ABD. PAIN. POSSIBLE OBS TECHNIQUE: Multiaxial CT images of the abdomen and pelvis were performed without contrast. COMPARISON STUDY: 12/08/2016 FINDINGS: Limited exam due to the absence of oral contrast. Bibasilar atelectasis. Fixed hiatal hernia. Mild fullness right renal pelvis although this is unchanged in the prior study. Inferior vena caval filter unchanged. Upper abdominal bowel pattern is considered nonobstructive Within the pelvis bladder is midline. There is been bladder suspension procedure. There is suggestion of either infiltrative change versus complex fluid within the posterior cul-de-sac. This is not present on the prior exam. Moderate increase in fecal load within the sigmoid. No evidence for pneumatosis or free air. IMPRESSION: 1. Complex free fluid within the pelvic cul-de-sac versus the less likely possibility of a low density mass given the interval change compared to the prior study dated 12/08/2016. 2. Possibility of hemorrhagic fluid within the pelvic cul-de-sac is also considered. 3. Otherwise no acute process of the abdomen or pelvis. 4. Postoperative changes including bladder suspension procedure and inferior vena caval stent placement stable from the prior exam. 5. Nonobstructive bowel pattern Electronically signed by: Miguel Luciano M.D. 02/17/2017 7:29 PM Dictated Date/Time: 02/17/2017 7:23 PM The status of this report is Signed. Draft = Not yet reviewed or approved by Radiologist. Signed = Reviewed and approved by Radiologist. <AttendingPhy></AttendingPhy> <FamilyPhy>Hussain Woody M.D.</FamilyPhy> < PrimaryPhy>Hussain Woody M.D.</PrimaryPhy> <UnitNumber>[id number]</UnitNumber > <VisitNumber>[id number]</VisitNumber> <PatientName>CHATO BONILLA</ PatientName> <DateOfBirth>1935</DateOfBirth> <Location>C.EDB</Location> < ServiceDate>02/17/17</ServiceDate> <MNE>ESINDI</MNE> <OrderingPhy>Sridhar Santiago M.D.</OrderingPhy> <OrderingPhyMNE>f rep ord dr castaneda</OrderingPhyMNE> < DictatingPhyMNE>f rep dict dr castaneda</DictatingPhyMNE> <CCListMNE>f rep ct tonya</ CCListMNE> <AdmittingPhyMNE>f pt admit dr castaneda</AdmittingPhyMNE> <AttendingPhyMNE >f pt attend dr castaneda</AttendingPhyMNE> <ConsultingPhyMNE>f pt consult dr castaneda</ConsultingPhyMNE> <FamilyPhyMNE>f pt fam dr castaneda</FamilyPhyMNE> <OtherPhyMNE>f pt other dr castaneda</OtherPhyMNE> < PrimaryPhyMNE>f pt prim care dr castaneda</PrimaryPhyMNE> <ReferringPhyMNE>f pt referring dr castaneda</ReferringPhyMNE> EKG EKG shows normal sinus rhythm at 60, right bundle branch block, left axis deviation, no acute ST-T changes. Impression Assessment and Plan Infectious disease/UTI/left lower lobe pneumonia--the patient will be admitted to the medical floor. Start vancomycin IV per renal dosing, and Zosyn 3.375 mg IV every 8 hours. Normal saline with potassium chloride 20 mEq at 100 ML's per hour. Rectal tumor status post recent resection--coordinate aftercare with Dr. Rolle at [facility]. Atrial fibrillation/CAD/hypertension/status post CABG--continue amiodarone 200 mg by mouth twice a day, metoprolol succinate 25 mg by mouth every morning, potassium extended release 20 mEq by mouth at lunchtime. Hypothyroidism--continue levothyroxine sodium 75 g by mouth every morning Multiple myeloma--continue acyclovir, increase prednisone from 5 mg to 10mg by mouth every morning, and Sensipar 30 mg by mouth every morning. GERD--continue pantoprazole 40 mg by mouth twice a day, and sucralfate 1 g by mouth 4 times a day. Hypercholesterolemia--continue pravastatin 20 mg by mouth on Wednesday and Wednesday. Level of Care Med/Surg Advanced Directives Existing Advance Directive: No Existing Living Will: No Existing Power of Telephone Service Representative: No Resuscitation Status FULL RESUSCITATION VTE Prophylaxis VTE Risk Assessment Done? Y/N: Yes Risk Level: Moderate Given or contraindicated: SCD's
[2017-02-17 23:03] VITALS: BP 129/65; PULSE 69; TEMP 37.4; O2SAT 95
[2017-02-17] MEDS ORDERED: PIPERACILL/TAZOBAC CONSULT ACTIVE PRN (23:15)
[2017-02-17] MEDS ORDERED: VANCOMYCIN CONSULT ACTIVE PRN (23:15)
[2017-02-17] MEDS ORDERED: VANCOMYCIN INJ 1,500 MG in SODIUM CHLORIDE 0.9% 500ML 500 ML IV ONE (23:30)
[2017-02-18] VITALS: BP 129/65; PULSE 69; TEMP 37.4; O2SAT 96; Ht 160 cm; Wt 59.0 kg
[2017-02-18] MEDS: ZOLPIDEM TARTRATE 5 MG TAB PO PRN ×2 (00:35→23:51)
[2017-02-18] MEDS: PRAVASTATIN SOD 20 MG TAB PO SCH (00:36)
[2017-02-18] MEDS: NSS + 20MEQ KCL 1000ML 1,000 ML IV SCH ×3 (00:36→19:02)
[2017-02-18] MEDS: PIPERACILL/TAZOBAC IV 3.375 GM in DEXTROSE 5% 100ML 100 ML IV SCH ×3 (06:47→21:54)
[2017-02-18] MEDS: LEVOTHYROXINE 75 MCG TAB PO SCH (06:47)
[2017-02-18 07:39] VITALS: BP 119/63; PULSE 62; TEMP 37.4; O2SAT 98
[2017-02-18] MEDS ORDERED: METOPROLOL SUCC 25MG EXT REL TAB PO SCH (08:00)
[2017-02-18 08:02] LABS: HEMATOCRIT 23.4 % (37-47); MEAN CELL VOLUME 82.7 fL (80-100); MEAN CORPUSCULAR HEMOGLOBIN 27.9 pg (25-34); MEAN CORPUSCULAR HGB CONC 33.8 g/dl (32-36); MEAN PLATELET VOLUME 10.9 fL (7.4-10.4); PLATELET COUNT 217 K/uL (130-400); RED BLOOD COUNT 2.83 M/uL (4.2-5.4); WHITE BLOOD COUNT 14.02 K/uL (4.8-10.8)
[2017-02-18 08:13] LABS: INR 1.1 (0.9-1.1); PARTIAL THROMBOPLASTIN RATIO 1.2; PROTHROMBIN TIME (PATIENT) 11.8 SECONDS (9.0-12.0)
[2017-02-18 08:31] LABS: BUN/CREATININE RATIO 18.1 (10-20); CREATININE 0.54 mg/dl (0.60-1.20); MAGNESIUM 1.9 mg/dl (1.8-2.4); POTASSIUM 3.2 mmol/L (3.5-5.1)
[2017-02-18 08:45] LABS: BASO % 0.1 %; BASO ABS # 0.02 K/uL (0-0.2); COMPLETE YES; EOS % 0.2 %; IG% 0.3 %; LYMPH % 7.1 %; LYMPH ABS # 0.99 K/uL (1.2-3.4); MONO % 5.4 %; NEUT % 86.9 %; POLYCHROMASIA 1+
[2017-02-18] MEDS: PANTOprazole SOD 40 MG TAB PO SCH ×2 (08:47→20:06)
[2017-02-18] MEDS: AMIODARONE 200 MG TAB PO SCH ×2 (08:48→20:06)
[2017-02-18] MEDS: SUCRALFATE 1 GM TAB PO SCH ×4 (08:48→20:06)
--- NOTE | 2017-02-18 10:33 | Pharmacy Progress Note ---
Pharmacy Antibiotic Consult Date of Service: Feb 18, 2017. Pharmacy Dosing Scope Pharmacy is consulted to initiate VANCOMYCIN & ZOSYN IV dosing therapy, order appropriate labs and adjust drug dose/frequency. Subjective The patient is a 81 year old female admitted on Feb 17, 2017 at 21:49. Objective Height (Feet): 5 Height (Inches): 3.00 Weight (Kilograms): 59.000 Lab Results (24hrs): Laboratory Tests Test 02/17/17 19:27 02/18/17 07:30 BUN/Creatinine Ratio 19.0 18.1 Blood Urea Nitrogen 14 mg/dl 10 mg/dl Creatinine 0.72 mg/dl 0.54 mg/dl White Blood Count 21.64 K/uL 14.02 K/uL Red Blood Count 3.45 M/uL 2.83 M/uL Hemoglobin 9.5 g/dL 7.9 g/dL Hematocrit 28.6 % 23.4 % Mean Corpuscular Volume 82.9 fL 82.7 fL Mean Corpuscular Hemoglobin 27.5 pg 27.9 pg Mean Corpuscular Hemoglobin Concent 33.2 g/dl 33.8 g/dl Platelet Count 255 K/uL 217 K/uL Mean Platelet Volume 10.8 fL 10.9 fL Neutrophils (%) (Auto) 89.7 % 86.9 % Lymphocytes (%) (Auto) 5.0 % 7.1 % Monocytes (%) (Auto) 4.8 % 5.4 % Eosinophils (%) (Auto) 0.0 % 0.2 % Basophils (%) (Auto) 0.1 % 0.1 % Neutrophils # (Auto) 19.41 K/uL 12.18 K/uL Lymphocytes # (Auto) 1.09 K/uL 0.99 K/uL Monocytes # (Auto) 1.03 K/uL 0.76 K/uL Eosinophils # (Auto) 0.01 K/uL 0.03 K/uL Basophils # (Auto) 0.02 K/uL 0.02 K/uL Micro Results: * 02/17/17 -- Blood Cx x 2 -- pending * 02/17/17 -- Urine,Cath -- Gm (-) bacilli Recent Pertinent Medications Item Value Date Time Acyclovir 400 mg 02/18/17 2100 (Zovirax Tab) QPM/PO Assessment & Plan 81yo female admitted with LLL PNA and UTI. Patient is s/p tumor resection at [facility] [place] on [place]/15/17. Renal function is good (SCr 0.54, rounded to 0.8 for dosing purposes). VANCOMYCIN: * Loading dose: VANCOMYCIN 1500mg (25 mg/kg) IV X 1 dose then VANCOMYCIN 900mg (15 mg/kg) IV every 20 hours. * Estimated Pk parameters: Vd 0.7 L/kg Ke ~0.04 t1/2 ~17 hours (based on SCr of 0.8, CrCl ~45 ml/min). * Goal trough level estimate: between 15 - 20 mcg/mL. * Trough level has been ordered for: @ 1130. Pharmacy will continue to follow and will adjust dose/frequency as necessary. Thank you
[2017-02-18] MEDS: POTASSIUM CHLORIDE 20 MEQ TABCR PO SCH (11:53)
[2017-02-18] MEDS: CHOLECALCIFEROL 1000 INTER.UNIT TAB PO SCH (11:54)
[2017-02-18] MEDS: GLUCOSAMINE SULFATE 500 MG CAP PO SCH (11:54)
[2017-02-18 14:46] VITALS: BP 95/51; PULSE 58; TEMP 36.7; O2SAT 96
[2017-02-18 16:00] VITALS: O2SAT 96
--- NOTE | 2017-02-18 18:43 | Progress Note ---
Subjective Date of Service: Feb 18, 2017. Subjective Pt evaluation today including: conversation w/ patient, conversation w/ family , physical exam, chart review, lab review, review of inpatient medication list Problem List Medical Problems: (1) PNA (pneumonia) Status: Acute (2) Upper GI bleed Status: Acute (3) Urinary tract infection Status: Acute Review of Systems Constitutional: + fatigue, + fever, No chills, No problem reported, No see HPI , No sweats, No weakness, No weight loss Eyes: No diplopia, No discharge, No eye pain, No problem reported, No redness, No see HPI, No worsening of vision ENT: No dental problems, No hearing loss, No nasal symptoms, No problem reported, No see HPI, No sore throat, No tinnitus, No trouble swallowing, No unusual epistaxis Respiratory: No cough, No dyspnea at rest, No dyspnea on exertion, No hemoptysis, No problem reported, No see HPI, No shortness of breath, No sputum, No wheezing Cardiac: No PND, No chest pain, No claudication, No edema, No orthopnea, No palpitations, No problem reported, No see HPI Breast: No breast lump, No breast pain, No change in shape, No nipple discharge , No problem reported, No see HPI Abdomen: + constipation, + nausea, + pain Musculoskeletal: No calf pain, No joint pain, No muscle pain, No problem reported, No see HPI, No swelling Female : + problem reported (retention), No abnormal vaginal bleeding, No dysuria, No hematuria, No incontinence, No see HPI, No urinary frequency, No vaginal discharge Neurologic: No balance problems, No memory loss, No numbness/tingling, No paralysis, No problem reported, No see HPI, No vertigo, No weakness Psychiatric: No anhedonism, No anxiety, No depression symptoms, No insomnia, No problem reported, No see HPI, No substance abuse Heme: No abnormal bleeding/bruising, No clotting problems, No night sweats, No problem reported, No see HPI, No swollen lymph nodes Endo: No excessive thirst, No excessive urination, No fatigue, No problem reported, No see HPI Skin: No bleeding, No color change, No itch, No new/changing skin lesions, No problem reported, No rash, No see HPI Medications Current Inpatient Medications Medications (Trade) Dose Ordered Sig/Timo Route Start Time Stop Time Status Last Admin Dose Admin Acetaminophen (Tylenol Tab) 650 mg Q4H PRN PO 02/17/17 22:00 03/19/17 21:59 Zolpidem Tartrate (Ambien Tab) 5 mg HSZ PRN PO 02/17/17 22:00 03/19/17 21:59 02/18/17 00:35 5 MG Acyclovir (Zovirax Tab) 400 mg QPM PO 02/18/17 21:00 03/20/17 20:59 Amiodarone HCl (Cordarone Tab) 200 mg BID PO 02/18/17 08:00 03/20/17 08:59 02/18/17 08:48 200 MG Cholecalciferol (Vitamin D Tab) 1,000 inter.unit DAILY@1200 PO 02/18/17 12:00 03/20/17 11:59 02/18/17 11:54 1,000 INTER.UNIT Glucosamine Sulfate (Glucosamine Cap) 500 mg DAILY@1200 PO 02/18/17 12:00 03/20/17 11:59 02/18/17 11:54 500 MG Levothyroxine Sodium (Synthroid Tab) 75 mcg DAILYBB PO 02/18/17 06:30 03/20/17 06:29 02/18/17 06:47 75 MCG Metoprolol Succinate (Toprol Xl Tab) 25 mg QAM PO 02/18/17 08:00 03/20/17 08:59 02/18/17 08:48 25 MG Pantoprazole Sodium (Protonix Tab) 40 mg BID PO 02/18/17 08:00 03/20/17 08:59 02/18/17 08:47 40 MG Potassium Chloride (Klor-Con Tab) 20 meq DAILY@1200 PO 02/18/17 12:00 03/20/17 11:59 02/18/17 11:53 20 MEQ Pravastatin Sodium (Pravachol Tab) 20 mg MoWeFr@2100 PO 02/17/17 21:00 03/19/17 20:59 02/18/17 00:36 20 MG Prednisone (PredniSONE TAB) 10 mg QAM PO 02/18/17 08:00 03/20/17 08:59 02/18/17 08:47 10 MG Sucralfate (Carafate Tab) 1 gm QID PO 02/18/17 08:00 03/20/17 08:59 02/18/17 16:45 1 GM Miscellaneous Information (Order Awaiting Action) 1 ea QS N/A 02/18/17 08:00 03/20/17 07:59 Ondansetron HCl 4 mg 4 mg Q6H PRN IV 02/17/17 22:00 03/19/17 21:59 Potassium Chloride/Sodium Chloride 1,000 ml @ 100 mls/hr Q10H IV 02/17/17 23:00 03/19/17 22:59 02/18/17 08:49 100 MLS/HR Piperacillin Sod/ Tazobactam Sod/ Dextrose (Zosyn Iv/D5 100ml) 115 ml @ 28.75 mls/ hr Q8H IV 02/18/17 02:00 02/25/17 01:59 02/18/17 13:16 28.75 MLS/HR Vancomycin HCl (Consult) 1 ea UD PRN N/A 02/17/17 23:15 03/19/17 23:14 Piperacillin Sod/ Tazobactam Sod 1 ea 1 ea UD PRN N/A 02/17/17 23:15 03/19/17 23:14 Vancomycin HCl/ Sodium Chloride (Vancomycin Inj/ Nss 250ml) 268 ml @ 125 mls/hr Q20H IV 02/18/17 20:00 02/25/17 19:59 Objective Vital Signs Date Time Temp Pulse Resp B/P Pulse Ox O2 Delivery O2 Flow Rate FiO2 02/18/17 14:46 36.7 58 17 95/51 96 Room Air 02/18/17 08:00 Room Air 02/18/17 07:39 37.4 62 18 119/63 98 Room Air 02/18/17 00:00 37.4 69 18 129/65 96 Room Air 02/18/17 00:00 96 Room Air 02/17/17 23:03 37.4 69 18 129/65 95 Room Air 02/17/17 22:16 66 18 140/55 96 Room Air 02/17/17 21:52 66 16 139/51 95 Room Air 02/17/17 20:37 69 19 156/67 95 Room Air 02/17/17 19:05 70 17 160/58 93 Room Air Physical Exam General Appearance: no apparent distress Eyes: normal inspection, EOMI ENT: normal ENT inspection, hearing grossly normal Neck: supple Respiratory/Chest: chest non-tender, lungs clear, normal breath sounds, no respiratory distress, no accessory muscle use Cardiovascular: regular rate, rhythm, no edema, no gallop, no JVD, no murmur Abdomen: normal bowel sounds, soft, + distended, + tenderness Extremities: normal range of motion, non-tender, normal inspection, no pedal edema, no calf tenderness Neurologic/Psychiatric: 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 as tested, no motor/sensory deficits, alert, normal mood/affect, oriented x 3 Skin: normal color, warm/dry, no rash Laboratory Results Last 24 Hours Test 02/17/17 19:27 02/17/17 19:53 02/18/17 07:30 White Blood Count 21.64 K/uL 14.02 K/uL Red Blood Count 3.45 M/uL 2.83 M/uL Hemoglobin 9.5 g/dL 7.9 g/dL Hematocrit 28.6 % 23.4 % Mean Corpuscular Volume 82.9 fL 82.7 fL Mean Corpuscular Hemoglobin 27.5 pg 27.9 pg Mean Corpuscular Hemoglobin Concent 33.2 g/dl 33.8 g/dl Platelet Count 255 K/uL 217 K/uL Mean Platelet Volume 10.8 fL 10.9 fL Neutrophils (%) (Auto) 89.7 % 86.9 % Lymphocytes (%) (Auto) 5.0 % 7.1 % Monocytes (%) (Auto) 4.8 % 5.4 % Eosinophils (%) (Auto) 0.0 % 0.2 % Basophils (%) (Auto) 0.1 % 0.1 % Neutrophils # (Auto) 19.41 K/uL 12.18 K/uL Lymphocytes # (Auto) 1.09 K/uL 0.99 K/uL Monocytes # (Auto) 1.03 K/uL 0.76 K/uL Eosinophils # (Auto) 0.01 K/uL 0.03 K/uL Basophils # (Auto) 0.02 K/uL 0.02 K/uL RDW Standard Deviation 45.6 fL 45.4 fL RDW Coefficient of Variation 15.0 % 14.8 % Immature Granulocyte % (Auto) 0.4 % 0.3 % Immature Granulocyte # (Auto) 0.08 K/uL 0.04 K/uL Prothrombin Time 11.4 SECONDS 11.8 SECONDS Prothromb Time International Ratio 1.1 1.1 Activated Partial Thromboplast Time 28.9 SECONDS 32.1 SECONDS Partial Thromboplastin Ratio 1.1 1.2 Sodium Level 133 mmol/L 138 mmol/L Potassium Level 3.4 mmol/L 3.2 mmol/L Chloride Level 101 mmol/L 107 mmol/L Carbon Dioxide Level 24 mmol/L 24 mmol/L Anion Gap 8.0 mmol/L 7.0 mmol/L Blood Urea Nitrogen 14 mg/dl 10 mg/dl Creatinine 0.72 mg/dl 0.54 mg/dl Est Creatinine Clear Calc Drug Dose 49.0 ml/min 65.3 ml/min Estimated GFR () 89.8 101.1 Estimated GFR (Non- 77.4 87.3 BUN/Creatinine Ratio 19.0 18.1 Random Glucose 97 mg/dl 82 mg/dl Calcium Level 7.7 mg/dl 7.0 mg/dl Magnesium Level 1.8 mg/dl 1.9 mg/dl Total Bilirubin 0.7 mg/dl Aspartate Amino Transf (AST/SGOT) 17 U/L Alanine Aminotransferase (ALT/SGPT) 15 U/L Alkaline Phosphatase 52 U/L Troponin I < 0.015 ng/ml Total Protein 6.3 gm/dl Albumin 2.8 gm/dl Globulin 3.5 gm/dl Albumin/Globulin Ratio 0.8 Thyroid Stimulating Hormone (TSH) 0.636 uIu/ml Urine Color YELLOW Urine Appearance CLEAR Urine pH 5.0 Urine Specific Jenners 1.013 Urine Protein NEG Urine Glucose (UA) NEG Urine Ketones NEG Urine Occult Blood NEG Urine Nitrite POS Urine Bilirubin NEG Urine Urobilinogen NEG Urine Leukocyte Esterase TRACE Urine WBC (Auto) 1-5 /hpf Urine RBC (Auto) 0-4 /hpf Urine Hyaline Casts (Auto) 1-5 /lpf Urine Epithelial Cells (Auto) 10-20 /lpf Urine Bacteria (Auto) 3+ Polychromasia 1+ Assessment and Plan 1. C is also considered. 3. Otherwise no acute process of the abdomen or pelvis. 4. Postoperative changes including bladder suspension procedure and inferior vena caval stent placement stable from the prior exam. 5. Nonobstructive bowel pattern Electronically signed by: Miguel Luciano M.D. 02/17/2017 7:29 PM Dictated Date/Time: 02/17/2017 7:23 PM The status of this report is Signed. Draft = Not yet reviewed or approved by Radiologist. Signed = Reviewed and approved by Radiologist. <AttendingPhy></AttendingPhy> <FamilyPhy>Hussain Woody M.D.</FamilyPhy> < PrimaryPhy>Hussain Woody M.D.</PrimaryPhy> <UnitNumber>[id number]</UnitNumber > <VisitNumber>[id number]</VisitNumber> <PatientName>CHATO BONILLA</ PatientName> <DateOfBirth>1935</DateOfBirth> <Location>C.EDB</Location> < ServiceDate>02/17/17</ServiceDate> <MNE>ESINDI</MNE> <OrderingPhy>Sridhar Santiago M.D.</OrderingPhy> <OrderingPhyMNE>f rep ord dr castaneda</OrderingPhyMNE> < DictatingPhyMNE>f rep dict dr castaneda</DictatingPhyMNE> <CCListMNE>f rep ct tonya</ CCListMNE> <AdmittingPhyMNE>f pt admit dr castaneda</AdmittingPhyMNE> <AttendingPhyMNE >f pt attend dr castaneda</AttendingPhyMNE> <ConsultingPhyMNE>f pt consult dr castaneda</ConsultingPhyMNE> <FamilyPhyMNE>f pt fam dr castaneda</FamilyPhyMNE> <OtherPhyMNE>f pt other dr castaneda</OtherPhyMNE> < PrimaryPhyMNE>f pt prim care dr castaneda</PrimaryPhyMNE> <ReferringPhyMNE>f pt referring dr castaneda</ReferringPhyMNE> ASSESSMENT: 81-year-old female p/w with persistent temperature x 2 DAYS She underwent a rectal tumor resection by Dr. Mcpherson at [facility] 2 days ago. She denies any urinary symptoms, cough or shortness of breath. She has been passing gas since surgery but has not yet had a bowel movement. She has had nausea, but no vomiting. CT abdomen showed complex free fluid within the pelvic cul-de-sac (possible hemorrhagic fluid) versus the less likely possibility of a low density mass given the interval change compared to the SIRS unclear source of infection but possibly intra abdominal continue vanco/zosyn Blood C / Urine Cx pending will try to reach out for Dr. Rolle at [facility]. Rectal tumor status post recent resection--coordinate aftercare with Dr. Rolle Urinary retention place a rudolph cath Atrial fibrillation currently rate controlled / sinus continue amiodarone but hold B Audrey due to border line hypotension and bradycardia CAD/status post CABG hold metoprolol succinate 25 mg Currently not on Aspirin Hypothyroidism--continue levothyroxine sodium 75 g by mouth every morning Multiple myeloma / hypercalcemia hold prednisone, give stress dose IV Hydrocortisone continue Sensipar 30 mg by mouth every morning. GERD--continue pantoprazole 40 mg by mouth twice a day, and sucralfate 1 g by mouth 4 times a day. Hypercholesterolemia--continue pravastatin 20 mg by mouth on Wednesday and Wednesday.
[2017-02-18 19:47] LABS: BASO % 0.2 %; BASO ABS # 0.02 K/uL (0-0.2); EOS % 0.1 %; HEMATOCRIT 25.7 % (37-47); IG% 0.3 %; LYMPH % 3.9 %; MEAN CELL VOLUME 83.7 fL (80-100); MEAN CORPUSCULAR HEMOGLOBIN 27.4 pg (25-34); MEAN PLATELET VOLUME 11.3 fL (7.4-10.4); MONO % 4.9 %; NEUT % 90.6 %; PLATELET COUNT 233 K/uL (130-400); RED BLOOD COUNT 3.07 M/uL (4.2-5.4); WHITE BLOOD COUNT 12.82 K/uL (4.8-10.8)
[2017-02-18] MEDS ORDERED: VANCOMYCIN INJ 900 MG in SODIUM CHLORIDE 0.9% 250ML 250 ML IV SCH (20:00)
[2017-02-18 20:03] LABS: BUN/CREATININE RATIO 17.6 (10-20); CREATININE 0.75 mg/dl (0.60-1.20); POTASSIUM 4.2 mmol/L (3.5-5.1)
[2017-02-18] MEDS: ACYCLOVIR 400 MG TAB PO SCH (20:06)
[2017-02-18 20:19] LABS: COMPLETE YES; MEAN CORPUSCULAR HGB CONC 32.7 g/dl (32-36)
[2017-02-18] MEDS: HYDROCORTISONE IV 50 MG in SYRINGE 0 ML IV SCH (21:54)
[2017-02-19] VITALS (7 sets, daily range): BP systolic 115–153; BP diastolic 58–77; PULSE 59–62; TEMP 36.4–36.8; O2SAT 93–98
--- NOTE | 2017-02-19 01:19 | SURGICAL CONSULTATION ---
DATE OF CONSULTATION: 02/18/2017 I have been asked by Dr. Garcia to see this 81-year-old female, who was admitted with a complaint of abdominal pain, weakness and fever. Two days ago, she underwent a transanal excision of a rectal tumor. She was doing well and discharged home and then began to develop a fever overnight. She then developed abdominal pain as well. She has also been found to have urinary retention. She required straight cathing on arrival. She then had a catheter placed just before my arrival and drained between 600 to 700 mL immediately. After that, her abdominal discomfort did decrease. It did not resolve; however. She is not complaining of any pain in the anal region. There was no buttock pain. She has been passing flatus, but has not had a bowel movement. She has not passed any blood. She underwent a CT scan of the abdomen and pelvis that showed a suggestion of either infiltrative change versus complex fluid within the posterior cul-de-sac, not present on prior exam of 12/08/2016. There is a moderate increase in fecal load in the sigmoid colon, but no evidence for pneumatosis or free air. PAST MEDICAL HISTORY: Includes the rectal mass. Coronary artery disease, hypertension. PAST SURGICAL HISTORY: For a AMBER-BSO, the coronary artery bypass grafting x3, bilateral cataracts and an appendectomy. MEDICATIONS: At home included acyclovir, Cordarone, Sensipar, glucosamine, Synthroid, Toprol-XL, Protonix, Pravachol, prednisone, sucralfate, Zometa. ALLERGIES: ASPARTAME, SHELLFISH, CIPRO, IV DYE, NITROFURANTOIN, QUINOLONES AND SULFA. PHYSICAL EXAMINATION: GENERAL: Reveals a very thin female, who is answering questions appropriately. She appears fatigued. VITAL SIGNS: Blood pressure 95/51, heart rate 58, respirations 17, temperature 36.7, temperature maximum 37.4, pulse oximetry is 96% on room air. HEENT: Reveals the sclerae to be anicteric. Mucous membranes are moist. NECK: Supple without adenopathy. BACK: Has no spinal or CVA tenderness. LUNGS: Clear. HEART: Regular. ABDOMEN: Her abdomen is mildly distended, but is soft. There are normoactive bowel sounds. There is some mild distention in the lower abdomen. That is where she is mildly tender. LABORATORY DATA: WBC maximum on admission was 21.64, but the last was 12.82, H\T\H is 8.4 and 25.7 with a platelet count of 233,000. Sodium 138, potassium 4.2, chloride 109, CO2 22, BUN 13, creatinine 0.75, glucose 163. Her LFTs were normal on admission. ASSESSMENT AND PLAN: This patient had fever and fatigue. There is a finding of a possible inflammatory process in the area of her surgery from 2 days ago. I discussed this with the radiologist. It does not appear to be a hematoma or an abscess. It may be a developing hematoma. She is hemodynamically stable, however. Her white count was already decreasing. I agree with initial conservative management with antibiotics and bowel rest at first. If these do not continue and she is not improving, then I would recommend a transfer back to [place] to her colorectal surgeon. Thank you for allowing me to see this patient and participate in her care.
[2017-02-19] MEDS: NSS + 20MEQ KCL 1000ML 1,000 ML IV SCH ×2 (05:09→14:01)
[2017-02-19] MEDS: PIPERACILL/TAZOBAC IV 3.375 GM in DEXTROSE 5% 100ML 100 ML IV SCH ×3 (05:11→20:11)
--- NOTE | 2017-02-19 06:03 | Clinical Documentation Query ---
CLINICAL DOCUMENTATION QUERY 81 year old female who presents to the Emergency Room with complaints of a persistent fever. Query #1/4 In your clinical opinion is this patient being managed for: ( X ) Possible Post procedural hematoma or seroma treated with multiple IV antibiotics and Surgical consult. ( ) Other explanation of clinical findings (Please Explain) ( ) Unable to determine (Please Define) ( ) Need to Discuss ( ) Not Agree The medical record reflects the following clinical findings, treatment, and risk factors. Clinical Indicators: Had rectal tumor resection 2 days prior to admission. Abdominal CT showed possible hemorrhagic fluid within pelvic cul-de-sac. Surgical consult stated patient coudl have a developing hematoma. Treatment: Sx consult, IV Vancomycin, IV Hydrocortisone, IV Zosyn, Risk Factors: Recent colorectal surgery Query #2/4 SIRS with unclear source of infection is documented in 02/18 progress note. In ICD10 coding indexes SIRS can only be code if there is no infection. If the patient is suspected to have an infection from a not yet identified source and has SIRS criteria then Sepsis best defines the condition. In your clinical opinion is this patient being managed for: ( ) Likely Sepsis due to postoperative seroma/hematoma, UTI, and/or pneumonia ( ) Other explanation of clinical findings (Please Explain) ( X ) Unable to determine (Please Define) ( ) Need to Discuss ( ) Not Agree The medical record reflects the following clinical findings, treatment, and risk factors. Clinical Indicators: Reported fever by patient, borderline hypotension 90-100's/40-60's, Leukocytosis 21.61 with 87% Neut, UC +Gram negative bacilli, and left basilar infiltrate on CXR. Treatment: Sx consult, IV Vancomycin, IV Hydrocortisone, IV Zosyn, IVF bolus, Primary IVF's, Jewell, Risk Factors: Age, recent healthcare facility contact, recent surgery, urinary retention and +culture. Query #3/4 Pneumonia was documented on H&P but has fallen off the record. [facility] coding depart may not code diagnosis if it lacks sufficient documentation within the record. In your clinical opinion is this patient being managed for: ( ) Pneumonia evidenced by subjective fever, left basilar infiltrate, and leukocytosis treated with IV Vancomycin, IV Hydrocortisone, and IV Zosyn. ( X) Pneumonia ruled out Query #4/4 UTI was documented on H&P but has fallen off the record. The [facility] may not code diagnosis if not sufficiently documented throughout the medical record. In your clinical opinion is this patient being managed for: ( ) UTI evidenced +UC, subjective fever, and leukocytosis ( X ) UTI ruled out Please clarify and document your clinical opinion in the progress notes and discharge summary. Terms such as "probable", "suspected", "likely", "questionable", "possible", or "still to be ruled out" are acceptable. IF IN AGREEMENT, YOU MUST DOCUMENT ABOVE DIAGNOSTIC STATEMENT IN DAILY PROGRESS NOTES AND DISCHARGE SUMMARY. This document is not part of the patient's record. Thank You, Jovany Oseguera, RN [phone]
[2017-02-19] MEDS: LEVOTHYROXINE 75 MCG TAB PO SCH (06:19)
[2017-02-19] MEDS: SUCRALFATE 1 GM TAB PO SCH ×4 (07:54→20:03)
[2017-02-19] MEDS: AMIODARONE 200 MG TAB PO SCH ×2 (07:54→20:02)
[2017-02-19] MEDS: HYDROCORTISONE IV 50 MG in SYRINGE 0 ML IV SCH ×3 (07:55→20:01)
[2017-02-19] MEDS: PANTOprazole SOD 40 MG TAB PO SCH ×2 (07:55→20:01)
[2017-02-19 08:12] LABS: BASO % 0.1 %; BASO ABS # 0.01 K/uL (0-0.2); HEMATOCRIT 24.5 % (37-47); IG% 0.2 %; LYMPH % 6.9 %; LYMPH ABS # 0.61 K/uL (1.2-3.4); MEAN CELL VOLUME 83.1 fL (80-100); MEAN CORPUSCULAR HEMOGLOBIN 27.8 pg (25-34); MEAN CORPUSCULAR HGB CONC 33.5 g/dl (32-36); MONO % 5.4 %; NEUT % 87.4 %; PLATELET COUNT 223 K/uL (130-400); RED BLOOD COUNT 2.95 M/uL (4.2-5.4); WHITE BLOOD COUNT 8.84 K/uL (4.8-10.8)
[2017-02-19 08:23] LABS: PARTIAL THROMBOPLASTIN RATIO 1.2; PROTHROMBIN TIME (PATIENT) 10.7 SECONDS (9.0-12.0)
[2017-02-19 08:39] LABS: BUN/CREATININE RATIO 22.6 (10-20); CALCIUM 7.6 mg/dl (8.5-10.1); CREATININE 0.46 mg/dl (0.60-1.20); POTASSIUM 3.9 mmol/L (3.5-5.1)
[2017-02-19 08:42] LABS: ALB/GLOB RATIO 0.6 (0.9-2)
[2017-02-19 08:44] LABS: COMPLETE YES
--- NOTE | 2017-02-19 09:08 | Surgery Progress Note ---
Surgery Progress Note Date of Service Feb 19, 2017. Subjective + flatus, No bowel movement, No nausea, No vomiting Denies pain today Feels and appears weak Objective Vital Signs: Date Time Temp Pulse Resp B/P Pulse Ox O2 Delivery O2 Flow Rate FiO2 02/19/17 07:54 61 02/19/17 07:53 36.8 59 18 152/75 97 Room Air 02/19/17 00:37 36.8 61 16 115/58 96 Room Air 02/19/17 00:00 96 Room Air 02/18/17 16:00 96 Room Air 02/18/17 14:46 36.7 58 17 95/51 96 Room Air Abdomen: normal bowel sounds, non distended, soft, + tenderness (mininal and much improved) Laboratory Results: Results Past 24 Hours Test 02/18/17 19:21 02/19/17 07:44 02/19/17 07:48 Range/Units White Blood Count 12.82 8.84 4.8-10.8 K/uL Red Blood Count 3.07 2.95 4.2-5.4 M/uL Hemoglobin 8.4 8.2 12.0-16.0 g/dL Hematocrit 25.7 24.5 37-47 % Mean Corpuscular Volume 83.7 83.1 80-100 fL Mean Corpuscular Hemoglobin 27.4 27.8 25-34 pg Mean Corpuscular Hemoglobin Concent 32.7 33.5 32-36 g/dl Platelet Count 233 223 130-400 K/uL Mean Platelet Volume 11.3 11.0 7.4-10.4 fL Neutrophils (%) (Auto) 90.6 87.4 % Lymphocytes (%) (Auto) 3.9 6.9 % Monocytes (%) (Auto) 4.9 5.4 % Eosinophils (%) (Auto) 0.1 0.0 % Basophils (%) (Auto) 0.2 0.1 % Neutrophils # (Auto) 11.62 7.72 1.4-6.5 K/uL Lymphocytes # (Auto) 0.50 0.61 1.2-3.4 K/uL Monocytes # (Auto) 0.63 0.48 0.11-0.59 K/uL Eosinophils # (Auto) 0.01 0.00 0-0.5 K/uL Basophils # (Auto) 0.02 0.01 0-0.2 K/uL RDW Standard Deviation 46.4 45.4 36.4-46.3 fL RDW Coefficient of Variation 15.1 14.9 11.5-14.5 % Immature Granulocyte % (Auto) 0.3 0.2 % Immature Granulocyte # (Auto) 0.04 0.02 0.00-0.02 K/uL Sodium Level 138 141 136-145 mmol/L Potassium Level 4.2 3.9 3.5-5.1 mmol/L Chloride Level 109 113 98-107 mmol/L Carbon Dioxide Level 22 21 21-32 mmol/L Anion Gap 7.0 7.0 3-11 mmol/L Blood Urea Nitrogen 13 10 7-18 mg/dl Creatinine 0.75 0.46 0.60-1.20 mg/dl Est Creatinine Clear Calc Drug Dose 47.0 76.6 ml/min Estimated GFR () 85.4 106.6 Estimated GFR (Non- 73.7 92.0 BUN/Creatinine Ratio 17.6 22.6 10-20 Random Glucose 163 126 70-99 mg/dl Lactic Acid Level 1.7 0.4-2.0 mmol/L Calcium Level 7.0 7.6 8.5-10.1 mg/dl Red Blood Cell Morphology Unremarkable Prothrombin Time 10.7 9.0-12.0 SECONDS Prothromb Time International Ratio 1.0 0.9-1.1 Activated Partial Thromboplast Time 30.4 21.0-31.0 SECONDS Partial Thromboplastin Ratio 1.2 Magnesium Level 2.0 1.8-2.4 mg/dl Total Bilirubin 0.3 0.2-1 mg/dl Aspartate Amino Transf (AST/SGOT) 9 15-37 U/L Alanine Aminotransferase (ALT/SGPT) 12 12-78 U/L Alkaline Phosphatase 47 45-117 U/L Total Protein 5.3 6.4-8.2 gm/dl Albumin 2.0 3.4-5.0 gm/dl Globulin 3.3 2.5-4.0 gm/dl Albumin/Globulin Ratio 0.6 0.9-2 Bedside Glucose 131 70-90 mg/dl Assessment & Plan S/P transanal excision of rectal mass at [facility] Urinary retention Feels better today Abdomen benign WBC normal Would continue with conservative supportive measures No indication for surgical intervention at this time
[2017-02-19] MEDS: POTASSIUM CHLORIDE 20 MEQ TABCR PO SCH (11:52)
[2017-02-19] MEDS: CHOLECALCIFEROL 1000 INTER.UNIT TAB PO SCH (11:52)
[2017-02-19] MEDS: GLUCOSAMINE SULFATE 500 MG CAP PO SCH (11:52)
--- NOTE | 2017-02-19 15:32 | Progress Note ---
Subjective Date of Service: Feb 19, 2017. Subjective Pt evaluation today including: conversation w/ patient, conversation w/ family , physical exam, chart review, lab review, review of studies, conversation w/ vmware consultant (Dr. Costa) Problem List Medical Problems: (1) PNA (pneumonia) Status: Acute (2) Upper GI bleed Status: Acute (3) Urinary tract infection Status: Acute Review of Systems Constitutional: No chills, No fatigue, No fever, No problem reported, No see HPI, No sweats, No weakness, No weight loss Eyes: No diplopia, No discharge, No eye pain, No problem reported, No redness, No see HPI, No worsening of vision ENT: No dental problems, No hearing loss, No nasal symptoms, No problem reported, No see HPI, No sore throat, No tinnitus, No trouble swallowing, No unusual epistaxis Respiratory: No cough, No dyspnea at rest, No dyspnea on exertion, No hemoptysis, No problem reported, No see HPI, No shortness of breath, No sputum, No wheezing Cardiac: No PND, No chest pain, No claudication, No edema, No orthopnea, No palpitations, No problem reported, No see HPI Abdomen: No GI bleeding, No constipation, No diarrhea, No nausea, No pain, No problem reported, No see HPI, No vomiting Musculoskeletal: No calf pain, No joint pain, No muscle pain, No problem reported, No see HPI, No swelling Female : No abnormal vaginal bleeding, No dysuria, No hematuria, No incontinence, No problem reported, No see HPI, No urinary frequency, No vaginal discharge Neurologic: No balance problems, No memory loss, No numbness/tingling, No paralysis, No problem reported, No see HPI, No vertigo, No weakness Psychiatric: No anhedonism, No anxiety, No depression symptoms, No insomnia, No problem reported, No see HPI, No substance abuse Heme: No abnormal bleeding/bruising, No clotting problems, No night sweats, No problem reported, No see HPI, No swollen lymph nodes Endo: No excessive thirst, No excessive urination, No fatigue, No problem reported, No see HPI Skin: No bleeding, No color change, No itch, No new/changing skin lesions, No problem reported, No rash, No see HPI Medications Current Inpatient Medications Medications (Trade) Dose Ordered Sig/Timo Route Start Time Stop Time Status Last Admin Dose Admin Acetaminophen (Tylenol Tab) 650 mg Q4H PRN PO 02/17/17 22:00 03/19/17 21:59 Zolpidem Tartrate (Ambien Tab) 5 mg HSZ PRN PO 02/17/17 22:00 03/19/17 21:59 02/18/17 23:51 5 MG Acyclovir (Zovirax Tab) 400 mg QPM PO 02/18/17 21:00 03/20/17 20:59 02/18/17 20:06 400 MG Amiodarone HCl (Cordarone Tab) 200 mg BID PO 02/18/17 08:00 03/20/17 08:59 02/19/17 07:54 200 MG Cholecalciferol (Vitamin D Tab) 1,000 inter.unit DAILY@1200 PO 02/18/17 12:00 03/20/17 11:59 02/19/17 11:52 1,000 INTER.UNIT Glucosamine Sulfate (Glucosamine Cap) 500 mg DAILY@1200 PO 02/18/17 12:00 03/20/17 11:59 02/19/17 11:52 500 MG Levothyroxine Sodium (Synthroid Tab) 75 mcg DAILYBB PO 02/18/17 06:30 03/20/17 06:29 02/19/17 06:19 75 MCG Pantoprazole Sodium (Protonix Tab) 40 mg BID PO 02/18/17 08:00 03/20/17 08:59 02/19/17 07:55 40 MG Potassium Chloride (Klor-Con Tab) 20 meq DAILY@1200 PO 02/18/17 12:00 03/20/17 11:59 02/19/17 11:52 20 MEQ Pravastatin Sodium (Pravachol Tab) 20 mg MoWeFr@2100 PO 02/17/17 21:00 03/19/17 20:59 02/18/17 00:36 20 MG Prednisone (PredniSONE TAB) 10 mg QAM PO 02/18/17 08:00 03/20/17 08:59 Future Hold 02/18/17 08:47 10 MG Sucralfate (Carafate Tab) 1 gm QID PO 02/18/17 08:00 03/20/17 08:59 02/19/17 11:52 1 GM Ondansetron HCl 4 mg 4 mg Q6H PRN IV 02/17/17 22:00 03/19/17 21:59 Potassium Chloride/Sodium Chloride 1,000 ml @ 100 mls/hr Q10H IV 02/17/17 23:00 03/19/17 22:59 02/19/17 14:01 100 MLS/HR Piperacillin Sod/ Tazobactam Sod/ Dextrose (Zosyn Iv/D5 100ml) 115 ml @ 28.75 mls/ hr Q8H IV 02/18/17 02:00 02/25/17 01:59 02/19/17 14:01 28.75 MLS/HR Vancomycin HCl (Consult) 1 ea UD PRN N/A 02/17/17 23:15 03/19/17 23:14 Piperacillin Sod/ Tazobactam Sod 1 ea 1 ea UD PRN N/A 02/17/17 23:15 03/19/17 23:14 Vancomycin HCl 900 mg/Sodium Chloride 268 ml @ 125 mls/hr Q20H IV 02/18/17 20:00 02/25/17 19:59 02/18/17 19:43 125 MLS/HR Hydrocortisone Sodium Succinate/ Syringe (Solu-Cortef IV/ Syringe) 1 ml @ 4 mls/min TID IV 02/18/17 20:00 03/20/17 19:59 02/19/17 14:01 4 MLS/MIN Cinacalcet (Sensipar) 30 mg DAILY PO 02/20/17 08:00 03/22/17 07:59 Objective Vital Signs Date Time Temp Pulse Resp B/P Pulse Ox O2 Delivery O2 Flow Rate FiO2 02/19/17 15:25 36.4 61 14 147/62 98 Room Air 02/19/17 09:35 Room Air 02/19/17 07:54 61 02/19/17 07:53 36.8 59 18 152/75 97 Room Air 02/19/17 00:37 36.8 61 16 115/58 96 Room Air 02/19/17 00:00 96 Room Air 02/18/17 16:00 96 Room Air Physical Exam General Appearance: no apparent distress Eyes: normal inspection, EOMI ENT: normal ENT inspection, hearing grossly normal, TMs normal, pharynx normal Neck: supple, no adenopathy, thyroid normal Respiratory/Chest: chest non-tender, lungs clear, normal breath sounds, no respiratory distress, no accessory muscle use Cardiovascular: regular rate, rhythm, no edema, no gallop, no JVD, no murmur Abdomen: normal bowel sounds, soft, + tenderness Extremities: normal range of motion, non-tender, normal inspection, no pedal edema Neurologic/Psychiatric: 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 tested, no motor/sensory deficits, alert, normal mood/affect, oriented x 3 Skin: normal color, warm/dry, no rash Laboratory Results Last 24 Hours Test 02/18/17 19:21 02/19/17 07:44 02/19/17 07:48 White Blood Count 12.82 K/uL 8.84 K/uL Red Blood Count 3.07 M/uL 2.95 M/uL Hemoglobin 8.4 g/dL 8.2 g/dL Hematocrit 25.7 % 24.5 % Mean Corpuscular Volume 83.7 fL 83.1 fL Mean Corpuscular Hemoglobin 27.4 pg 27.8 pg Mean Corpuscular Hemoglobin Concent 32.7 g/dl 33.5 g/dl Platelet Count 233 K/uL 223 K/uL Mean Platelet Volume 11.3 fL 11.0 fL Neutrophils (%) (Auto) 90.6 % 87.4 % Lymphocytes (%) (Auto) 3.9 % 6.9 % Monocytes (%) (Auto) 4.9 % 5.4 % Eosinophils (%) (Auto) 0.1 % 0.0 % Basophils (%) (Auto) 0.2 % 0.1 % Neutrophils # (Auto) 11.62 K/uL 7.72 K/uL Lymphocytes # (Auto) 0.50 K/uL 0.61 K/uL Monocytes # (Auto) 0.63 K/uL 0.48 K/uL Eosinophils # (Auto) 0.01 K/uL 0.00 K/uL Basophils # (Auto) 0.02 K/uL 0.01 K/uL RDW Standard Deviation 46.4 fL 45.4 fL RDW Coefficient of Variation 15.1 % 14.9 % Immature Granulocyte % (Auto) 0.3 % 0.2 % Immature Granulocyte # (Auto) 0.04 K/uL 0.02 K/uL Sodium Level 138 mmol/L 141 mmol/L Potassium Level 4.2 mmol/L 3.9 mmol/L Chloride Level 109 mmol/L 113 mmol/L Carbon Dioxide Level 22 mmol/L 21 mmol/L Anion Gap 7.0 mmol/L 7.0 mmol/L Blood Urea Nitrogen 13 mg/dl 10 mg/dl Creatinine 0.75 mg/dl 0.46 mg/dl Est Creatinine Clear Calc Drug Dose 47.0 ml/min 76.6 ml/min Estimated GFR () 85.4 106.6 Estimated GFR (Non- 73.7 92.0 BUN/Creatinine Ratio 17.6 22.6 Random Glucose 163 mg/dl 126 mg/dl Lactic Acid Level 1.7 mmol/L Calcium Level 7.0 mg/dl 7.6 mg/dl Red Blood Cell Morphology Unremarkable Prothrombin Time 10.7 SECONDS Prothromb Time International Ratio 1.0 Activated Partial Thromboplast Time 30.4 SECONDS Partial Thromboplastin Ratio 1.2 Magnesium Level 2.0 mg/dl Total Bilirubin 0.3 mg/dl Aspartate Amino Transf (AST/SGOT) 9 U/L Alanine Aminotransferase (ALT/SGPT) 12 U/L Alkaline Phosphatase 47 U/L Total Protein 5.3 gm/dl Albumin 2.0 gm/dl Globulin 3.3 gm/dl Albumin/Globulin Ratio 0.6 Bedside Glucose 131 mg/dl Assessment and Plan 81-year-old female p/w with persistent temperature x 2 DAYS She underwent a rectal tumor resection by Dr. 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 She has had nausea, but no vomiting. CT abdomen showed complex free fluid within the pelvic cul-de-sac (possible hemorrhagic fluid) versus the less likely possibility of a low density mass given the interval change compared to the SIRS unclear source of infection but possibly intra abdominal continue vanco/zosyn Blood C / Urine Cx pending UTI and pneumonia ruled out Dr. Costa consult was appreciated Rectal tumor status post recent resection--coordinate aftercare with Dr. Rolle Urinary retention place a rudolph cath Atrial fibrillation currently rate controlled / sinus continue amiodarone but hold B Audrey due to border line hypotension and bradycardia CAD/status post CABG hold metoprolol succinate 25 mg Currently not on Aspirin Hypothyroidism--continue levothyroxine sodium 75 g by mouth every morning Multiple myeloma / hypercalcemia hold prednisone, give stress dose IV Hydrocortisone continue Sensipar 30 mg by mouth every morning. GERD--continue pantoprazole 40 mg by mouth twice a day, and sucralfate 1 g by mouth 4 times a day. Hypercholesterolemia--continue pravastatin 20 mg by mouth on Wednesday and Wednesday.
[2017-02-19] MEDS: CINACALCET 30 MG TAB PO SCH (16:04)
[2017-02-19] MEDS: ACYCLOVIR 400 MG TAB PO SCH (20:01)
[2017-02-19] MEDS: PRAVASTATIN SOD 20 MG TAB PO SCH (20:01)
[2017-02-20] MEDS: NSS + 20MEQ KCL 1000ML 1,000 ML IV SCH ×2 (00:31→13:52)
[2017-02-20] MEDS: PIPERACILL/TAZOBAC IV 3.375 GM in DEXTROSE 5% 100ML 100 ML IV SCH ×3 (05:25→23:21)
[2017-02-20] MEDS: LEVOTHYROXINE 75 MCG TAB PO SCH (05:30)
[2017-02-20 07:48] LABS: BASO % 0.1 %; BASO ABS # 0.01 K/uL (0-0.2); IG% 0.3 %; LYMPH % 10.7 %; LYMPH ABS # 0.99 K/uL (1.2-3.4); MEAN CELL VOLUME 82.8 fL (80-100); MEAN CORPUSCULAR HEMOGLOBIN 27.5 pg (25-34); MEAN CORPUSCULAR HGB CONC 33.2 g/dl (32-36); MEAN PLATELET VOLUME 10.4 fL (7.4-10.4); MONO % 6.9 %; PLATELET COUNT 249 K/uL (130-400); RED BLOOD COUNT 3.02 M/uL (4.2-5.4); WHITE BLOOD COUNT 9.27 K/uL (4.8-10.8)
[2017-02-20 08:02] LABS: PROTHROMBIN TIME (PATIENT) 10.4 SECONDS (9.0-12.0)
[2017-02-20 08:16] LABS: COMPLETE YES
[2017-02-20] MEDS: HYDROCORTISONE IV 50 MG in SYRINGE 0 ML IV SCH (08:19)
[2017-02-20] MEDS: AMIODARONE 200 MG TAB PO SCH ×2 (08:19→20:36)
[2017-02-20] MEDS: SUCRALFATE 1 GM TAB PO SCH ×5 (08:20→20:35)
[2017-02-20] MEDS: PANTOprazole SOD 40 MG TAB PO SCH ×2 (08:20→20:36)
[2017-02-20 08:21] VITALS: BP 156/76; PULSE 92; TEMP 36.4; O2SAT 93
[2017-02-20] MEDS: CINACALCET 30 MG TAB PO SCH (08:21)
[2017-02-20 08:25] LABS: BUN/CREATININE RATIO 22.1 (10-20); CALCIUM 7.6 mg/dl (8.5-10.1); CREATININE 0.56 mg/dl (0.60-1.20); MAGNESIUM 1.9 mg/dl (1.8-2.4); POTASSIUM 3.6 mmol/L (3.5-5.1)
--- NOTE | 2017-02-20 10:04 | SURGERY PROGRESS NOTE ---
DATE: 02/20/[address] Costa. SUBJECTIVE: Elizabeth is feeling fine, although she is having almost a hepatic nervous breakdown problem that has been going on to her in the last week or so. She related to me the story of being taken to surgery on Wednesday after she had a full bowel prep for colonoscopy and had a rectal excision of a mass. This surgery did not get started till 5 o'clock in the afternoon and from the recovery room, the patient was discharged home and she got home at about midnight. The next morning, she had lower abdominal pain, came into the Emergency Room and she had urinary retention with the CAT scan finding that also showed the possibilities of little pelvic bleed. At this point, clinically, the patient feels that she is passing flatus. She has not had a bowel movement. Her last vitals showed a temperature of 36.6, pulse 59, respirations 18, blood pressure 137/77. O2 sats 93 on room air. Urine is 500 mL overnight. I\T\O is adequate. Laboratory leos, her WBCs were 9.27 this morning. Her hemoglobin is stable at 8.3. She does have still a left shift. The BUN is 10, creatinine 0.46. The abdomen is completely benign. She is growing an E. coli from her urine and she has appropriate antibiotics. From the surgical point of view, the patient could be discharged. She certainly has not had a bowel movement which I expect or may happen in the next day or so and if not, she may need a laxative. She can certainly follow up with Dr. Sage,{ Dr. Sage is the colorectal surgeon } at his discretion. ABDULAZIZ
--- NOTE | 2017-02-20 11:03 | Progress Note ---
Subjective Date of Service: Feb 20, 2017. Subjective Pt evaluation today including: conversation w/ patient, conversation w/ family , physical exam, chart review, lab review, review of inpatient medication list Problem List Medical Problems: (1) PNA (pneumonia) Status: Acute (2) Upper GI bleed Status: Acute (3) Urinary tract infection Status: Acute Review of Systems Constitutional: + fatigue, No chills, No fever, No problem reported, No see HPI , No sweats, No weakness, No weight loss Eyes: No diplopia, No discharge, No eye pain, No problem reported, No redness, No see HPI, No worsening of vision ENT: No dental problems, No hearing loss, No nasal symptoms, No problem reported, No see HPI, No sore throat, No tinnitus, No trouble swallowing, No unusual epistaxis Respiratory: No cough, No dyspnea at rest, No dyspnea on exertion, No hemoptysis, No problem reported, No see HPI, No shortness of breath, No sputum, No wheezing Cardiac: No PND, No chest pain, No claudication, No edema, No orthopnea, No palpitations, No problem reported, No see HPI Abdomen: No GI bleeding, No constipation, No diarrhea, No nausea, No pain, No problem reported, No see HPI, No vomiting Musculoskeletal: No calf pain, No joint pain, No muscle pain, No problem reported, No see HPI, No swelling Female : + problem reported (retention) Neurologic: No balance problems, No memory loss, No numbness/tingling, No paralysis, No problem reported, No see HPI, No vertigo, No weakness Psychiatric: + anxiety, + depression symptoms, No anhedonism, No insomnia, No problem reported, No see HPI, No substance abuse Heme: No abnormal bleeding/bruising, No clotting problems, No night sweats, No problem reported, No see HPI, No swollen lymph nodes Endo: No excessive thirst, No excessive urination, No fatigue, No problem reported, No see HPI Skin: No bleeding, No color change, No itch, No new/changing skin lesions, No problem reported, No rash, No see HPI Objective Vital Signs Date Time Temp Pulse Resp B/P Pulse Ox O2 Delivery O2 Flow Rate FiO2 02/20/17 08:21 36.4 92 16 156/76 93 Room Air 02/20/17 08:00 Room Air 02/19/17 23:14 36.6 59 18 137/77 93 Room Air 02/19/17 20:03 62 153/68 02/19/17 15:40 Room Air 02/19/17 15:25 36.4 61 14 147/62 98 Room Air Physical Exam General Appearance: no apparent distress Eyes: normal inspection, EOMI ENT: normal ENT inspection, hearing grossly normal Neck: supple Respiratory/Chest: chest non-tender, lungs clear, normal breath sounds, no respiratory distress Cardiovascular: regular rate, rhythm, no edema, no gallop, no JVD, no murmur Abdomen: normal bowel sounds, non tender, soft Extremities: normal range of motion, non-tender, normal inspection, no pedal edema Neurologic/Psychiatric: 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 as tested, no motor/sensory deficits, alert, normal mood/affect, oriented x 3 Skin: normal color, warm/dry, no rash Laboratory Results Last 24 Hours Test 02/20/17 07:30 White Blood Count 9.27 K/uL Red Blood Count 3.02 M/uL Hemoglobin 8.3 g/dL Hematocrit 25.0 % Mean Corpuscular Volume 82.8 fL Mean Corpuscular Hemoglobin 27.5 pg Mean Corpuscular Hemoglobin Concent 33.2 g/dl Platelet Count 249 K/uL Mean Platelet Volume 10.4 fL Neutrophils (%) (Auto) 82.0 % Lymphocytes (%) (Auto) 10.7 % Monocytes (%) (Auto) 6.9 % Eosinophils (%) (Auto) 0.0 % Basophils (%) (Auto) 0.1 % Neutrophils # (Auto) 7.60 K/uL Lymphocytes # (Auto) 0.99 K/uL Monocytes # (Auto) 0.64 K/uL Eosinophils # (Auto) 0.00 K/uL Basophils # (Auto) 0.01 K/uL RDW Standard Deviation 45.1 fL RDW Coefficient of Variation 14.9 % Immature Granulocyte % (Auto) 0.3 % Immature Granulocyte # (Auto) 0.03 K/uL Red Blood Cell Morphology Unremarkable Prothrombin Time 10.4 SECONDS Prothromb Time International Ratio 1.0 Activated Partial Thromboplast Time 26.5 SECONDS Partial Thromboplastin Ratio 1.0 Sodium Level 140 mmol/L Potassium Level 3.6 mmol/L Chloride Level 112 mmol/L Carbon Dioxide Level 21 mmol/L Anion Gap 7.0 mmol/L Blood Urea Nitrogen 12 mg/dl Creatinine 0.56 mg/dl Est Creatinine Clear Calc Drug Dose 62.9 ml/min Estimated GFR () 99.9 Estimated GFR (Non- 86.2 BUN/Creatinine Ratio 22.1 Random Glucose 117 mg/dl Calcium Level 7.6 mg/dl Magnesium Level 1.9 mg/dl Assessment and Plan 81-year-old female p/w with persistent temperature x 2 DAYS She underwent a rectal tumor resection by Dr. 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 She has had nausea, but no vomiting. CT abdomen showed complex free fluid within the pelvic cul-de-sac (possible hemorrhagic fluid) versus the less likely possibility of a low density mass given the interval change compared to the SIRS, resolved possible intra abdominal complicated UTI POA (urinary retention) continue zosyn, possible tomorrow can be switched to CTXN Vanco was stopped F/U Blood C / Urine Cx pneumonia ruled out Dr. Costa consult was appreciated decrease IVF to 50cc/hr patient was on prednisone 5mg po daily at home for her MM currently on stress dose hydrocortisone 50mg IV Q 8h, will switch her to prednisone 5mg po BID for 2 days then can get back to her maintenance dose 5mg po daily Rectal tumor status post recent resection--coordinate aftercare with Dr. Rolle Urinary retention S/P rudolph cath urology consult Atrial fibrillation currently rate controlled / sinus continue amiodarone but hold B Audrey due to border line hypotension and bradycardia CAD/status post CABG hold metoprolol succinate 25 mg Currently not on Aspirin Hypothyroidism--continue levothyroxine sodium 75 g by mouth every morning Multiple myeloma / hypercalcemia DC stress dose IV Hydrocortisone, start prednisone 5mg po bid continue Sensipar 30 mg by mouth every morning. GERD--continue pantoprazole 40 mg by mouth twice a day, and sucralfate 1 g by mouth 4 times a day. Hypercholesterolemia--continue pravastatin 20 mg by mouth on Wednesday and Wednesday. DVT prophylaxis (heparin) PT / OT
[2017-02-20] MEDS ORDERED: VANCOMYCIN TROUGH SCH (11:30)
[2017-02-20] MEDS: POTASSIUM CHLORIDE 20 MEQ TABCR PO SCH (11:38)
[2017-02-20] MEDS: CHOLECALCIFEROL 1000 INTER.UNIT TAB PO SCH (11:39)
[2017-02-20] MEDS: GLUCOSAMINE SULFATE 500 MG CAP PO SCH (11:39)
[2017-02-20 16:05] VITALS: BP 152/61; PULSE 90; TEMP 37; O2SAT 90
[2017-02-20] MEDS: ACYCLOVIR 400 MG TAB PO SCH (20:37)
[2017-02-20] MEDS: ZOLPIDEM TARTRATE 5 MG TAB PO PRN (23:21)
[2017-02-21 00:12] VITALS: BP 176/71; PULSE 62; TEMP 36.8; O2SAT 96
[2017-02-21] MEDS: PIPERACILL/TAZOBAC IV 3.375 GM in DEXTROSE 5% 100ML 100 ML IV SCH ×2 (06:08→14:57)
[2017-02-21] MEDS: LEVOTHYROXINE 75 MCG TAB PO SCH (06:09)
[2017-02-21] MEDS: NSS + 20MEQ KCL 1000ML 1,000 ML IV SCH (06:09)
[2017-02-21 07:50] LABS: BASO % 0.3 %; BASO ABS # 0.02 K/uL (0-0.2); HEMATOCRIT 25.8 % (37-47); IG% 0.9 %; LYMPH % 17.5 %; LYMPH ABS # 1.39 K/uL (1.2-3.4); MEAN CELL VOLUME 82.4 fL (80-100); MEAN CORPUSCULAR HEMOGLOBIN 27.2 pg (25-34); MEAN CORPUSCULAR HGB CONC 32.9 g/dl (32-36); MEAN PLATELET VOLUME 10.8 fL (7.4-10.4); MONO % 9.2 %; NEUT % 71.1 %; PLATELET COUNT 273 K/uL (130-400); RED BLOOD COUNT 3.13 M/uL (4.2-5.4); WHITE BLOOD COUNT 7.93 K/uL (4.8-10.8)
[2017-02-21 08:22] LABS: BUN/CREATININE RATIO 23.8 (10-20); CALCIUM 7.9 mg/dl (8.5-10.1); CREATININE 0.56 mg/dl (0.60-1.20); MAGNESIUM 1.9 mg/dl (1.8-2.4); POTASSIUM 3.7 mmol/L (3.5-5.1)
[2017-02-21 08:29] VITALS: BP 171/72; PULSE 65; TEMP 36.8; O2SAT 96
[2017-02-21 08:33] LABS: ALB/GLOB RATIO 0.6 (0.9-2)
[2017-02-21 08:34] LABS: COMPLETE YES
[2017-02-21] MEDS: SUCRALFATE 1 GM TAB PO SCH ×4 (08:44→21:36)
[2017-02-21] MEDS: PANTOprazole SOD 40 MG TAB PO SCH ×2 (08:44→21:37)
[2017-02-21] MEDS: CINACALCET 30 MG TAB PO SCH (08:45)
[2017-02-21] MEDS: AMIODARONE 200 MG TAB PO SCH ×2 (08:45→21:37)
[2017-02-21] MEDS ORDERED: POTASSIUM PHOS 3 MMOL/1 ML INFUSION IV STA (10:35)
[2017-02-21] MEDS ORDERED: POTASSIUM PHOSPHATE INJ 15 MMOL in SODIUM CHLORIDE 0.9% 250ML 250 ML IV SCH (11:00)
[2017-02-21] MEDS ORDERED: CALCIUM GLUCONATE 10% 1,000 MG in SODIUM CHLORIDE 0.9% 50ML 50 ML IV ONE (11:00)
[2017-02-21] MEDS: CHOLECALCIFEROL 1000 INTER.UNIT TAB PO SCH (11:44)
[2017-02-21] MEDS: GLUCOSAMINE SULFATE 500 MG CAP PO SCH (11:44)
[2017-02-21] MEDS: POTASSIUM CHLORIDE 20 MEQ TABCR PO SCH (11:44)
[2017-02-21] MEDS ORDERED: METOPROLOL SUCC 50MG EXT REL TAB PO STA (13:37)
--- NOTE | 2017-02-21 13:46 | Progress Note ---
Subjective Date of Service: Feb 21, 2017. Subjective Pt evaluation today including: conversation w/ patient, physical exam, chart review, lab review, review of inpatient medication list Problem List Medical Problems: (1) PNA (pneumonia) Status: Acute (2) Upper GI bleed Status: Acute (3) Urinary tract infection Status: Acute Review of Systems Constitutional: + fatigue, No chills, No fever, No problem reported, No see HPI , No sweats, No weakness, No weight loss Eyes: No diplopia, No discharge, No eye pain, No problem reported, No redness, No see HPI, No worsening of vision ENT: No dental problems, No hearing loss, No nasal symptoms, No problem reported, No see HPI, No sore throat, No tinnitus, No trouble swallowing, No unusual epistaxis Respiratory: No cough, No dyspnea at rest, No dyspnea on exertion, No hemoptysis, No problem reported, No see HPI, No shortness of breath, No sputum, No wheezing Cardiac: No PND, No chest pain, No claudication, No edema, No orthopnea, No palpitations, No problem reported, No see HPI Abdomen: No GI bleeding, No constipation, No diarrhea, No nausea, No pain, No problem reported, No see HPI, No vomiting Musculoskeletal: No calf pain, No joint pain, No muscle pain, No problem reported, No see HPI, No swelling Female : No abnormal vaginal bleeding, No dysuria, No hematuria, No incontinence, No problem reported, No see HPI, No urinary frequency, No vaginal discharge Neurologic: No balance problems, No memory loss, No numbness/tingling, No paralysis, No problem reported, No see HPI, No vertigo, No weakness Psychiatric: No anhedonism, No anxiety, No depression symptoms, No insomnia, No problem reported, No see HPI, No substance abuse Heme: No abnormal bleeding/bruising, No clotting problems, No night sweats, No problem reported, No see HPI, No swollen lymph nodes Endo: No excessive thirst, No excessive urination, No fatigue, No problem reported, No see HPI Skin: No bleeding, No color change, No itch, No new/changing skin lesions, No problem reported, No rash, No see HPI Medications Current Inpatient Medications Medications (Trade) Dose Ordered Sig/Timo Route Start Time Stop Time Status Last Admin Dose Admin Acetaminophen (Tylenol Tab) 650 mg Q4H PRN PO 3/29/17 22:00 03/19/17 21:59 Zolpidem Tartrate (Ambien Tab) 5 mg HSZ PRN PO 02/17/17 22:00 03/19/17 21:59 02/20/17 23:21 5 MG Acyclovir (Zovirax Tab) 400 mg QPM PO 02/18/17 21:00 03/20/17 20:59 02/20/17 20:37 400 MG Amiodarone HCl (Cordarone Tab) 200 mg BID PO 02/18/17 08:00 03/20/17 08:59 02/21/17 08:45 200 MG Cholecalciferol (Vitamin D Tab) 1,000 inter.unit DAILY@1200 PO 02/18/17 12:00 03/20/17 11:59 02/21/17 11:44 1,000 INTER.UNIT Glucosamine Sulfate (Glucosamine Cap) 500 mg DAILY@1200 PO 02/18/17 12:00 03/20/17 11:59 02/21/17 11:44 500 MG Levothyroxine Sodium (Synthroid Tab) 75 mcg DAILYBB PO 02/18/17 06:30 03/20/17 06:29 02/21/17 06:09 75 MCG Pantoprazole Sodium (Protonix Tab) 40 mg BID PO 02/18/17 08:00 03/20/17 08:59 02/21/17 08:44 40 MG Potassium Chloride (Klor-Con Tab) 20 meq DAILY@1200 PO 02/18/17 12:00 03/20/17 11:59 02/21/17 11:44 20 MEQ Pravastatin Sodium (Pravachol Tab) 20 mg MoWeFr@2100 PO 02/17/17 21:00 03/19/17 20:59 02/19/17 20:01 20 MG Sucralfate (Carafate Tab) 1 gm QID PO 02/18/17 08:00 03/20/17 08:59 02/21/17 11:44 1 GM Ondansetron HCl 4 mg 4 mg Q6H PRN IV 02/17/17 22:00 03/19/17 21:59 Potassium Chloride/Sodium Chloride 1,000 ml @ 50 mls/hr Q20H IV 02/17/17 23:00 03/19/17 22:59 02/21/17 06:09 50 MLS/HR Piperacillin Sod/ Tazobactam Sod/ Dextrose (Zosyn Iv/D5 100ml) 115 ml @ 28.75 mls/ hr Q8H IV 02/18/17 02:00 02/25/17 01:59 02/21/17 06:08 28.75 MLS/HR Piperacillin Sod/ Tazobactam Sod (Consult) 1 ea UD PRN N/A 02/17/17 23:15 03/19/17 23:14 Prednisone (PredniSONE TAB) 5 mg BID PO 02/20/17 20:00 03/22/17 19:59 02/21/17 08:44 5 MG Cinacalcet 30 mg 30 mg DAILY PO 02/21/17 09:00 03/23/17 08:59 02/21/17 08:45 30 MG Potassium Phosphate/Sodium Chloride (Potassium Phosphate Inj/Nss 250ml) 255 ml @ 85 mls/hr TODAY@1100 IV 02/21/17 11:00 02/21/17 13:59 02/21/17 11:44 85 MLS/HR Objective Vital Signs Date Time Temp Pulse Resp B/P Pulse Ox O2 Delivery O2 Flow Rate FiO2 02/21/17 08:45 Room Air 02/21/17 08:29 36.8 65 20 171/72 96 02/21/17 00:12 36.8 62 18 176/71 96 Room Air 02/21/17 00:00 Room Air 02/20/17 20:00 Room Air 02/20/17 16:05 37.0 90 20 152/61 90 Physical Exam General Appearance: no apparent distress Eyes: normal inspection, EOMI ENT: normal ENT inspection, hearing grossly normal Neck: supple Respiratory/Chest: chest non-tender, lungs clear, normal breath sounds, no respiratory distress, no accessory muscle use Cardiovascular: regular rate, rhythm, no edema, no gallop, no JVD, no murmur Abdomen: normal bowel sounds, non tender, soft, no organomegaly Extremities: normal range of motion, non-tender, normal inspection, no pedal edema 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, no motor/sensory deficits, alert, normal mood/affect, oriented x 3 Skin: normal color, warm/dry, no rash Laboratory Results Last 24 Hours Test 02/21/17 07:08 White Blood Count 7.93 K/uL Red Blood Count 3.13 M/uL Hemoglobin 8.5 g/dL Hematocrit 25.8 % Mean Corpuscular Volume 82.4 fL Mean Corpuscular Hemoglobin 27.2 pg Mean Corpuscular Hemoglobin Concent 32.9 g/dl Platelet Count 273 K/uL Mean Platelet Volume 10.8 fL Neutrophils (%) (Auto) 71.1 % Lymphocytes (%) (Auto) 17.5 % Monocytes (%) (Auto) 9.2 % Eosinophils (%) (Auto) 1.0 % Basophils (%) (Auto) 0.3 % Neutrophils # (Auto) 5.64 K/uL Lymphocytes # (Auto) 1.39 K/uL Monocytes # (Auto) 0.73 K/uL Eosinophils # (Auto) 0.08 K/uL Basophils # (Auto) 0.02 K/uL RDW Standard Deviation 45.0 fL RDW Coefficient of Variation 14.9 % Immature Granulocyte % (Auto) 0.9 % Immature Granulocyte # (Auto) 0.07 K/uL Red Blood Cell Morphology Unremarkable Sodium Level 140 mmol/L Potassium Level 3.7 mmol/L Chloride Level 111 mmol/L Carbon Dioxide Level 21 mmol/L Anion Gap 8.0 mmol/L Blood Urea Nitrogen 13 mg/dl Creatinine 0.56 mg/dl Est Creatinine Clear Calc Drug Dose 62.9 ml/min Estimated GFR () 99.9 Estimated GFR (Non- 86.2 BUN/Creatinine Ratio 23.8 Random Glucose 84 mg/dl Calcium Level 7.9 mg/dl Phosphorus Level 1.0 mg/dl Magnesium Level 1.9 mg/dl Total Bilirubin 0.3 mg/dl Aspartate Amino Transf (AST/SGOT) 9 U/L Alanine Aminotransferase (ALT/SGPT) 11 U/L Alkaline Phosphatase 42 U/L Total Protein 5.3 gm/dl Albumin 2.0 gm/dl Globulin 3.3 gm/dl Albumin/Globulin Ratio 0.6 Assessment and Plan 81-year-old female p/w with persistent temperature x 2 DAYS She underwent a rectal tumor resection by Dr. Mcpherson at [facility] 2 days [employer] (S/P transanal excision of rectal mass at [facility]) She has been passing gas since surgery but has not yet had a bowel movement. She has had nausea, but no vomiting. CT abdomen showed complex free fluid within the pelvic cul-de-sac (possible hemorrhagic fluid) versus the less likely possibility of a low density mass SIRS, resolved possible intra abdominal sepsis (recent transrectal operation) complicated UTI POA (urinary retention) continue zosyn, despite of Ucx growing sensitive E coli , UA had only 2-5 WBC and she had no urinary symptoms, suspect another intra abdominal source, improving on zosyn Vanco was stopped F/U Blood C / Urine Cx pneumonia ruled out Dr. Costa consult was appreciated DC IVF decrease prednisone to her usual maintenance dose 5mg po daily S/P stress dose hydrocortisone 50mg IV Q 8h, currently off IV steroids Rectal tumor status post recent resection--coordinate aftercare with Dr. Rolle Urinary retention, likely post surgical urethral sphincter spasm S/P [facility] urology consult history of DVT s/p IVC filter insertion in 2014 when anticoagulation caused GI bleeding Hx of paroxysmal Atrial fibrillation , currently sinus rhythm currently rate controlled / sinus continue amiodarone restart B Audrey need to discuss anti coagulation for Afib when ok with Dr. Rolle (surgeon), Dr. Davis recommended in 11/2016 to consider AC after healing of her gastric ulcer due to very high AYAD score, needs to be addressed upon discharge Anemia; likely from her MM, but wanted to R/O any contributing factors will send full anemia study (iron studies, B12, Folic, retics ) CAD/status post CABG hold metoprolol succinate 25 mg Currently not on Aspirin Hypothyroidism--continue levothyroxine sodium 75 g by mouth every morning Multiple myeloma / hypercalcemia DC stress dose IV Hydrocortisone, start prednisone 5mg daily (maintenance) continue Sensipar 30 mg by mouth every morning. GERD--continue pantoprazole 40 mg by mouth twice a day, and sucralfate 1 g by mouth 4 times a day. Hypercholesterolemia--continue pravastatin 20 mg by mouth on Wednesday and Wednesday. DVT prophylaxis (heparin) PT / OT
--- NOTE | 2017-02-21 14:11 | SURGERY PROGRESS NOTE ---
DATE: 02/21/[address] Costa. Elizabeth feels much better today than she has. She has got a better attitude. She is eating. She is passing flatus, has not had any bowel movements. Her last vitals showed a temperature of 36.8, pulse 65, respirations 20, blood pressure 171/80 and O2 sats 96 on room air. I\T\O, she is fairly balanced, her urine output is 1600 so far today. Laboratory, her hemoglobin is stable at 8.5, WBC 7.93, BUN 13, creatinine 0.56. Phosphorus 1.0 and is being treated. At this point, she is not uncomfortable, she has not had a bowel movement, but I will let nature dictate its course at this time, I would hold off laxatives since she is not very uncomfortable at this time, I certainly would avoid enemas. Tomorrow Dr. Costa will take over her care. [facility]ITALJumana
[2017-02-21 14:58] LABS: FERRITIN 37.3 ng/ml (8.0-388.0)
[2017-02-21 15:03] VITALS: BP 157/69; PULSE 67; TEMP 36.8; O2SAT 97
[2017-02-21] MEDS: ACYCLOVIR 400 MG TAB PO SCH (21:38)
[2017-02-21 23:30] VITALS: BP 169/73; PULSE 56; TEMP 36.9; O2SAT 96
[2017-02-22] MEDS: ACETAMINOPHEN 325 MG TAB PO PRN (00:01)
[2017-02-22] MEDS: LEVOTHYROXINE 75 MCG TAB PO SCH (06:00)
[2017-02-22] MEDS: PIPERACILL/TAZOBAC IV 3.375 GM in DEXTROSE 5% 100ML 100 ML IV SCH ×5 (06:00→21:58)
[2017-02-22 06:28] LABS: BASO % 0.6 %; BASO ABS # 0.05 K/uL (0-0.2); COMPLETE YES; EOS % 3.6 %; IG% 1.3 %; LYMPH % 21.8 %; MEAN CELL VOLUME 82.4 fL (80-100); MEAN CORPUSCULAR HEMOGLOBIN 27.1 pg (25-34); MEAN CORPUSCULAR HGB CONC 32.9 g/dl (32-36); MEAN PLATELET VOLUME 10.3 fL (7.4-10.4); MONO % 12.8 %; NEUT % 59.9 %; PLATELET COUNT 297 K/uL (130-400); WHITE BLOOD COUNT 7.81 K/uL (4.8-10.8)
[2017-02-22 06:56] LABS: BUN/CREATININE RATIO 13.2 (10-20); CREATININE 0.65 mg/dl (0.60-1.20); MAGNESIUM 1.9 mg/dl (1.8-2.4); POTASSIUM 3.2 mmol/L (3.5-5.1)
[2017-02-22 06:59] LABS: PHOSPHORUS 1.7 mg/dl (2.5-4.9)
[2017-02-22 07:58] VITALS: BP 154/68; PULSE 76; TEMP 36.9; O2SAT 97
[2017-02-22] MEDS: PANTOprazole SOD 40 MG TAB PO SCH ×2 (08:21→20:12)
[2017-02-22] MEDS: CINACALCET 30 MG TAB PO SCH (08:21)
[2017-02-22] MEDS: AMIODARONE 200 MG TAB PO SCH ×2 (08:22→20:12)
[2017-02-22] MEDS: SUCRALFATE 1 GM TAB PO SCH ×4 (08:22→20:11)
[2017-02-22] MEDS ORDERED: POTASSIUM CHLORIDE 10 MEQ TABCR PO STA (08:38)
[2017-02-22 09:10] VITALS: O2SAT 97
--- NOTE | 2017-02-22 09:34 | Surgery Progress Note ---
Surgery Progress Note Date of Service Feb 22, 2017. Subjective Post OP Day: HD # 5 "Not feeling well" Passing flatus + nausea No vomiting No bowel movement "want to go home, not longterm" Objective Vital Signs: Date Time Temp Pulse Resp B/P Pulse Ox O2 Delivery O2 Flow Rate FiO2 02/22/17 09:10 97 Room Air 02/22/17 07:58 36.9 76 19 154/68 97 Room Air 02/22/17 00:00 Room Air 02/21/17 23:30 36.9 56 18 169/73 96 Room Air 02/21/17 20:00 Room Air 02/21/17 16:30 Room Air 02/21/17 15:03 36.8 67 18 157/69 97 Room Air General Appearance: WD/WN, no apparent distress, + pertinent finding (flat affect, crying) Head: normocephalic, atraumatic Neck: trachea midline Respiratory/Chest: no respiratory distress, no accessory muscle use Abdomen: non tender, non distended, soft Laboratory Results: Results Past 24 Hours Test 02/21/17 13:27 02/21/17 14:09 02/22/17 05:50 Range/Units Transferrin % Saturation 4 15-50 % Absolute Reticulocyte Count 0.05 0.02-0.10 10^6/uL Percent Reticulocyte Count 1.5 0.5-2.0 % Iron Level 10 35-150 mcg/dl Total Iron Binding Capacity 201 250-450 mcg/dl Transferrin 160 200-360 mg/dl Ferritin 37.3 8.0-388.0 ng/ml Vitamin B12 Level 518 211-911 pg/mL Folate 3.75 >5.38 ng/mL White Blood Count 7.81 4.8-10.8 K/uL Red Blood Count 3.40 4.2-5.4 M/uL Hemoglobin 9.2 12.0-16.0 g/dL Hematocrit 28.0 37-47 % Mean Corpuscular Volume 82.4 80-100 fL Mean Corpuscular Hemoglobin 27.1 25-34 pg Mean Corpuscular Hemoglobin Concent 32.9 32-36 g/dl Platelet Count 297 130-400 K/uL Mean Platelet Volume 10.3 7.4-10.4 fL Neutrophils (%) (Auto) 59.9 % Lymphocytes (%) (Auto) 21.8 % Monocytes (%) (Auto) 12.8 % Eosinophils (%) (Auto) 3.6 % Basophils (%) (Auto) 0.6 % Neutrophils # (Auto) 4.68 1.4-6.5 K/uL Lymphocytes # (Auto) 1.70 1.2-3.4 K/uL Monocytes # (Auto) 1.00 0.11-0.59 K/uL Eosinophils # (Auto) 0.28 0-0.5 K/uL Basophils # (Auto) 0.05 0-0.2 K/uL RDW Standard Deviation 44.7 36.4-46.3 fL RDW Coefficient of Variation 14.9 11.5-14.5 % Immature Granulocyte % (Auto) 1.3 % Immature Granulocyte # (Auto) 0.10 0.00-0.02 K/uL Sodium Level 142 136-145 mmol/L Potassium Level 3.2 3.5-5.1 mmol/L Chloride Level 107 98-107 mmol/L Carbon Dioxide Level 28 21-32 mmol/L Anion Gap 7.0 3-11 mmol/L Blood Urea Nitrogen 9 7-18 mg/dl Creatinine 0.65 0.60-1.20 mg/dl Est Creatinine Clear Calc Drug Dose 54.2 ml/min Estimated GFR () 95.2 Estimated GFR (Non- 82.1 BUN/Creatinine Ratio 13.2 10-20 Random Glucose 75 70-99 mg/dl Calcium Level 8.0 8.5-10.1 mg/dl Phosphorus Level 1.7 2.5-4.9 mg/dl Magnesium Level 1.9 1.8-2.4 mg/dl Assessment & Plan S/p Rectal tumor excision by Dr. Leo at [facility] - vitals stable - abdomen soft, benign, no tenderness - no leukocytosis Plan: Continue current management established by Medicine No surgical indication required Trial Milk of Magnesia to help with bowel movements, no rectal suppositories or enemas given patients rectal tumor excision. Will continue to follow Dr. Costa has seen and examined patient, agrees with assessment and plan.
[2017-02-22] MEDS: GLUCOSAMINE SULFATE 500 MG CAP PO SCH (11:39)
[2017-02-22] MEDS: POTASSIUM CHLORIDE 20 MEQ TABCR PO SCH (11:39)
[2017-02-22] MEDS: CHOLECALCIFEROL 1000 INTER.UNIT TAB PO SCH (11:40)
[2017-02-22 13:35] VITALS: BP 145/85; PULSE 58; O2SAT 97
--- NOTE | 2017-02-22 14:31 | Hospitalist Progress Note ---
Hospitalist Progress Note Date of Service Feb 22, 2017. Subjective Pt evaluation today including: conversation w/ patient, physical exam, chart review, lab review, review of studies, review of inpatient medication list Patient reports some nausea overnight. She denies any fever or chills. Still no bowel movements. Denies any chest pain or pressure. Does admit to feeling very fatigued. Additional Comments: 6 system review negative. Please see pertinent positives in the history of present illness section. Objective Vital Signs Date Time Temp Pulse Resp B/P Pulse Ox O2 Delivery O2 Flow Rate FiO2 02/22/17 09:10 97 Room Air 02/22/17 08:45 Room Air 02/22/17 07:58 36.9 76 19 154/68 97 Room Air 02/22/17 00:00 Room Air 02/21/17 23:30 36.9 56 18 169/73 96 Room Air 02/21/17 20:00 Room Air 02/21/17 16:30 Room Air 02/21/17 15:03 36.8 67 18 157/69 97 Room Air Physical Exam General Appearance: no apparent distress Eyes: EOMI Neck: no JVD Respiratory/Chest: lungs clear Cardiovascular: regular rate, rhythm Abdomen: normal bowel sounds, non tender, soft Extremities: non-tender, no pedal edema Neurologic/Psychiatric: no motor/sensory deficits, oriented x 3 Skin: warm/dry Laboratory Results 02/22/17 05:50 Red Blood Count 3.40, Mean Corpuscular Volume 82.4, Mean Corpuscular Hemoglobin 27.1, Mean Corpuscular Hemoglobin Concent 32.9, Mean Platelet Volume 10.3, Neutrophils (%) (Auto) 59.9, Lymphocytes (%) (Auto) 21.8, Monocytes (%) (Auto) 12.8, Eosinophils (%) (Auto) 3.6, Basophils (%) (Auto) 0.6, Neutrophils # (Auto ) 4.68, Lymphocytes # (Auto) 1.70, Monocytes # (Auto) 1.00, Eosinophils # (Auto ) 0.28, Basophils # (Auto) 0.05 02/22/17 05:50 Test 02/22/17 05:50 White Blood Count 7.81 K/uL (4.8-10.8) Red Blood Count 3.40 M/uL (4.2-5.4) Hemoglobin 9.2 g/dL (12.0-16.0) Hematocrit 28.0 % (37-47) Mean Corpuscular Volume 82.4 fL (80-100) Mean Corpuscular Hemoglobin 27.1 pg (25-34) Mean Corpuscular Hemoglobin Concent 32.9 g/dl (32-36) Platelet Count 297 K/uL (130-400) Mean Platelet Volume 10.3 fL (7.4-10.4) Neutrophils (%) (Auto) 59.9 % Lymphocytes (%) (Auto) 21.8 % Monocytes (%) (Auto) 12.8 % Eosinophils (%) (Auto) 3.6 % Basophils (%) (Auto) 0.6 % Neutrophils # (Auto) 4.68 K/uL (1.4-6.5) Lymphocytes # (Auto) 1.70 K/uL (1.2-3.4) Monocytes # (Auto) 1.00 K/uL (0.11-0.59) Eosinophils # (Auto) 0.28 K/uL (0-0.5) Basophils # (Auto) 0.05 K/uL (0-0.2) RDW Standard Deviation 44.7 fL (36.4-46.3) RDW Coefficient of Variation 14.9 % (11.5-14.5) Immature Granulocyte % (Auto) 1.3 % Immature Granulocyte # (Auto) 0.10 K/uL (0.00-0.02) Anion Gap 7.0 mmol/L (3-11) Est Creatinine Clear Calc Drug Dose 54.2 ml/min Estimated GFR () 95.2 Estimated GFR (Non- 82.1 BUN/Creatinine Ratio 13.2 (10-20) Calcium Level 8.0 mg/dl (8.5-10.1) Phosphorus Level 1.7 mg/dl (2.5-4.9) Magnesium Level 1.9 mg/dl (1.8-2.4) Last 24 Hours Test 02/22/17 05:50 White Blood Count 7.81 K/uL Red Blood Count 3.40 M/uL Hemoglobin 9.2 g/dL Hematocrit 28.0 % Mean Corpuscular Volume 82.4 fL Mean Corpuscular Hemoglobin 27.1 pg Mean Corpuscular Hemoglobin Concent 32.9 g/dl Platelet Count 297 K/uL Mean Platelet Volume 10.3 fL Neutrophils (%) (Auto) 59.9 % Lymphocytes (%) (Auto) 21.8 % Monocytes (%) (Auto) 12.8 % Eosinophils (%) (Auto) 3.6 % Basophils (%) (Auto) 0.6 % Neutrophils # (Auto) 4.68 K/uL Lymphocytes # (Auto) 1.70 K/uL Monocytes # (Auto) 1.00 K/uL Eosinophils # (Auto) 0.28 K/uL Basophils # (Auto) 0.05 K/uL RDW Standard Deviation 44.7 fL RDW Coefficient of Variation 14.9 % Immature Granulocyte % (Auto) 1.3 % Immature Granulocyte # (Auto) 0.10 K/uL Sodium Level 142 mmol/L Potassium Level 3.2 mmol/L Chloride Level 107 mmol/L Carbon Dioxide Level 28 mmol/L Anion Gap 7.0 mmol/L Blood Urea Nitrogen 9 mg/dl Creatinine 0.65 mg/dl Est Creatinine Clear Calc Drug Dose 54.2 ml/min Estimated GFR () 95.2 Estimated GFR (Non- 82.1 BUN/Creatinine Ratio 13.2 Random Glucose 75 mg/dl Calcium Level 8.0 mg/dl Phosphorus Level 1.7 mg/dl Magnesium Level 1.9 mg/dl Assessment and Plan 81-year-old female p/w with persistent temperature x 2 DAYS. She underwent a rectal tumor resection by Dr. Mcpherson at [facility] on 02/15 (S/P transanal excision of rectal mass at [facility]). She has been passing gas since surgery but has not yet had a bowel movement. She has had nausea, but no vomiting. CT abdomen showed complex free fluid within the pelvic cul-de-sac (possible hemorrhagic fluid) versus the less likely possibility of a low density mass SIRS-resolved -? intra abdominal sepsis (recent transrectal operation)-->more likely secondary to UTI given quick improvement -continue zosyn (started 02/17) Ucx growing sensitive E coli-->Could switch to Cipro po upon d/c -Vanco was stopped -Blood cx neg to date -pneumonia ruled out -Dr. Costa following -Was on stress dose steroids--> changed over to her usual prednisone 5 mg daily Constipation-No BM in 1 week. Passing gas -Begin Milk of magnesia Rectal tumor status post recent resection- -Needs f/u with Dr. Rolle in 1 week Urinary retention, likely post surgical urethral sphincter spasm -void trial today history of DVT s/p IVC filter insertion in 2014 when anticoagulation caused GI bleeding Hx of paroxysmal Atrial fibrillation-currently sinus rhythm currently rate controlled / sinus continue amiodarone Continue B Audrey Restart AC when ok with surgery Hx Gastric ulcer in Nov 2016 -continue Pantoprazole 40 mg po BID and sucralfate 1 g by mouth 4 times a day. Anemia; likely from her MM-also folate and iron deficient -Begin folic acid 1 mg daily -Begin iron after the patient has a bowel movement CAD/status post CABG -Continue metoprolol succinate 25 mg -Currently not on Aspirin d/t bleeding risk Hypothyroidism -continue levothyroxine sodium 75 g by mouth every morning Multiple myeloma / hypercalcemia -Continue prednisone 5mg daily (maintenance) continue Sensipar 30 mg by mouth every morning. Hypercholesterolemia -continue pravastatin 20 mg by mouth on Wednesday and Wednesday. DVT prophylaxis -Heparin 5000 u BID -SCDs/TEDs -AMBULATE CODE STATUS -LEVEL I FULL CODE
[2017-02-22 15:07] VITALS: BP 153/72; PULSE 54; TEMP 37; O2SAT 96
[2017-02-22 19:00] VITALS: O2SAT 96
[2017-02-22] MEDS: PRAVASTATIN SOD 20 MG TAB PO SCH (20:11)
[2017-02-22] MEDS: ACYCLOVIR 400 MG TAB PO SCH (20:12)
[2017-02-22] MEDS: MAGNESIUM HYDROXIDE SUSP 30 ML UDC PO SCH (20:13)
[2017-02-22] MEDS: HEPARIN SOD 5000 UNIT/0.5 ML CARP SQ SCH (20:14)
[2017-02-23] VITALS: O2SAT 96
[2017-02-23 00:12] VITALS: BP 157/75; PULSE 61; TEMP 36.9; O2SAT 95
[2017-02-23] MEDS: PIPERACILL/TAZOBAC IV 3.375 GM in DEXTROSE 5% 100ML 100 ML IV SCH (06:03)
[2017-02-23] MEDS: LEVOTHYROXINE 75 MCG TAB PO SCH (06:12)
[2017-02-23 06:37] LABS: CALCIUM 7.8 mg/dl (8.5-10.1); CREATININE 0.68 mg/dl (0.60-1.20); POTASSIUM 3.5 mmol/L (3.5-5.1)
[2017-02-23] MEDS: SUCRALFATE 1 GM TAB PO SCH ×4 (08:33→20:49)
[2017-02-23] MEDS: PANTOprazole SOD 40 MG TAB PO SCH ×2 (08:33→20:48)
[2017-02-23] MEDS: CINACALCET 30 MG TAB PO SCH (08:33)
[2017-02-23] MEDS: AMIODARONE 200 MG TAB PO SCH ×2 (08:33→20:48)
[2017-02-23] MEDS: HEPARIN SOD 5000 UNIT/0.5 ML CARP SQ SCH (08:36)
[2017-02-23 08:44] VITALS: BP 130/63; PULSE 61
[2017-02-23] MEDS: ACETAMINOPHEN 325 MG TAB PO PRN ×2 (08:44→20:53)
[2017-02-23 08:46] LABS: BASO % 0.7 %; BASO ABS # 0.06 K/uL (0-0.2); COMPLETE YES; EOS % 2.8 %; IG% 1.5 %; LYMPH % 19.7 %; MEAN CELL VOLUME 81.6 fL (80-100); MEAN CORPUSCULAR HEMOGLOBIN 26.8 pg (25-34); MEAN CORPUSCULAR HGB CONC 32.9 g/dl (32-36); MEAN PLATELET VOLUME 10.4 fL (7.4-10.4); MONO % 12.6 %; NEUT % 62.7 %; PLATELET COUNT 316 K/uL (130-400); RED BLOOD COUNT 3.43 M/uL (4.2-5.4); WHITE BLOOD COUNT 8.64 K/uL (4.8-10.8)
[2017-02-23] MEDS ORDERED: POTASSIUM PHOS 3 MMOL/1 ML INFUSION IV STA (10:21)
--- NOTE | 2017-02-23 10:32 | Surgery Progress Note ---
Surgery Progress Note Date of Service Feb 23, 2017. Subjective Post OP Day: HD # 6 + bowel movement, + feeling well, + flatus, No nausea, No vomiting Objective Vital Signs: Date Time Temp Pulse Resp B/P Pulse Ox O2 Delivery O2 Flow Rate FiO2 02/23/17 08:44 61 130/63 02/23/17 08:00 Room Air 02/23/17 00:12 36.9 61 20 157/75 95 Room Air 02/23/17 00:00 96 Room Air 02/22/17 19:00 96 Room Air 02/22/17 16:45 Room Air 02/22/17 15:07 37.0 54 18 153/72 96 Room Air 02/22/17 13:35 58 97 General Appearance: WD/WN, no apparent distress Head: normocephalic, atraumatic Respiratory/Chest: no respiratory distress, no accessory muscle use Abdomen: normal bowel sounds, non tender, non distended, soft Laboratory Results: Results Past 24 Hours Test 02/23/17 05:53 Range/Units White Blood Count 8.64 4.8-10.8 K/uL Red Blood Count 3.43 4.2-5.4 M/uL Hemoglobin 9.2 12.0-16.0 g/dL Hematocrit 28.0 37-47 % Mean Corpuscular Volume 81.6 80-100 fL Mean Corpuscular Hemoglobin 26.8 25-34 pg Mean Corpuscular Hemoglobin Concent 32.9 32-36 g/dl Platelet Count 316 130-400 K/uL Mean Platelet Volume 10.4 7.4-10.4 fL Neutrophils (%) (Auto) 62.7 % Lymphocytes (%) (Auto) 19.7 % Monocytes (%) (Auto) 12.6 % Eosinophils (%) (Auto) 2.8 % Basophils (%) (Auto) 0.7 % Neutrophils # (Auto) 5.42 1.4-6.5 K/uL Lymphocytes # (Auto) 1.70 1.2-3.4 K/uL Monocytes # (Auto) 1.09 0.11-0.59 K/uL Eosinophils # (Auto) 0.24 0-0.5 K/uL Basophils # (Auto) 0.06 0-0.2 K/uL RDW Standard Deviation 44.0 36.4-46.3 fL RDW Coefficient of Variation 14.8 11.5-14.5 % Immature Granulocyte % (Auto) 1.5 % Immature Granulocyte # (Auto) 0.13 0.00-0.02 K/uL Sodium Level 140 136-145 mmol/L Potassium Level 3.5 3.5-5.1 mmol/L Chloride Level 105 98-107 mmol/L Carbon Dioxide Level 27 21-32 mmol/L Anion Gap 8.0 3-11 mmol/L Blood Urea Nitrogen 8 7-18 mg/dl Creatinine 0.68 0.60-1.20 mg/dl Est Creatinine Clear Calc Drug Dose 51.8 ml/min Estimated GFR () 93.8 Estimated GFR (Non- 80.9 BUN/Creatinine Ratio 12.0 10-20 Random Glucose 81 70-99 mg/dl Calcium Level 7.8 8.5-10.1 mg/dl Phosphorus Level 1.9 2.5-4.9 mg/dl Assessment & Plan S/p Rectal tumor excision by Dr. Leo at [facility] - vitals stable - abdomen soft, benign, no tenderness - no leukocytosis - + bowel function Plan: Continue current management established by Medicine No surgical indication required Patient feeling much better. Discharge per Medicine service will continue to follow Dr. Bliss has seen and examined patient, agrees with assessment and plan.
[2017-02-23] MEDS ORDERED: POTASSIUM PHOSPHATE INJ 21 MMOL in SODIUM CHLORIDE 0.9% 500ML 500 ML IV SCH (11:00)
[2017-02-23] MEDS: GLUCOSAMINE SULFATE 500 MG CAP PO SCH (11:08)
[2017-02-23] MEDS: CHOLECALCIFEROL 1000 INTER.UNIT TAB PO SCH (11:09)
[2017-02-23] MEDS: POTASSIUM CHLORIDE 20 MEQ TABCR PO SCH (11:09)
--- NOTE | 2017-02-23 13:25 | Hospitalist Progress Note ---
Hospitalist Progress Note Date of Service Feb 23, 2017. Subjective Pt evaluation today including: conversation w/ patient, physical exam, chart review, lab review, conversation w/ validation consultant, review of inpatient medication list Denies any abdominal pain. Had multiple bowel movements yesterday. Concerned about the amount of blood in her bowel movements. The blood has dissipated. Denies any nausea. No fever or chills. Additional Comments: 6 system review negative. Please see pertinent positives in the history of present illness section. Objective Vital Signs Date Time Temp Pulse Resp B/P Pulse Ox O2 Delivery O2 Flow Rate FiO2 02/23/17 08:44 61 130/63 02/23/17 08:00 Room Air 02/23/17 00:12 36.9 61 20 157/75 95 Room Air 02/23/17 00:00 96 Room Air 02/22/17 19:00 96 Room Air 02/22/17 16:45 Room Air 02/22/17 15:07 37.0 54 18 153/72 96 Room Air 02/22/17 13:35 58 97 Physical Exam General Appearance: no apparent distress (appears worried) Eyes: EOMI Neck: no JVD Respiratory/Chest: + pertinent finding (faint crackles at the bases left greater than right.) Cardiovascular: no murmur, + irregularly irregular Abdomen: normal bowel sounds, non tender, soft Extremities: non-tender, no pedal edema Neurologic/Psychiatric: no motor/sensory deficits, oriented x 3 Skin: warm/dry Laboratory Results 02/23/17 05:53 Red Blood Count 3.43, Mean Corpuscular Volume 81.6, Mean Corpuscular Hemoglobin 26.8, Mean Corpuscular Hemoglobin Concent 32.9, Mean Platelet Volume 10.4, Neutrophils (%) (Auto) 62.7, Lymphocytes (%) (Auto) 19.7, Monocytes (%) (Auto) 12.6, Eosinophils (%) (Auto) 2.8, Basophils (%) (Auto) 0.7, Neutrophils # (Auto ) 5.42, Lymphocytes # (Auto) 1.70, Monocytes # (Auto) 1.09, Eosinophils # (Auto ) 0.24, Basophils # (Auto) 0.06 02/23/17 05:53 Test 02/23/17 05:53 White Blood Count 8.64 K/uL (4.8-10.8) Red Blood Count 3.43 M/uL (4.2-5.4) Hemoglobin 9.2 g/dL (12.0-16.0) Hematocrit 28.0 % (37-47) Mean Corpuscular Volume 81.6 fL (80-100) Mean Corpuscular Hemoglobin 26.8 pg (25-34) Mean Corpuscular Hemoglobin Concent 32.9 g/dl (32-36) Platelet Count 316 K/uL (130-400) Mean Platelet Volume 10.4 fL (7.4-10.4) Neutrophils (%) (Auto) 62.7 % Lymphocytes (%) (Auto) 19.7 % Monocytes (%) (Auto) 12.6 % Eosinophils (%) (Auto) 2.8 % Basophils (%) (Auto) 0.7 % Neutrophils # (Auto) 5.42 K/uL (1.4-6.5) Lymphocytes # (Auto) 1.70 K/uL (1.2-3.4) Monocytes # (Auto) 1.09 K/uL (0.11-0.59) Eosinophils # (Auto) 0.24 K/uL (0-0.5) Basophils # (Auto) 0.06 K/uL (0-0.2) RDW Standard Deviation 44.0 fL (36.4-46.3) RDW Coefficient of Variation 14.8 % (11.5-14.5) Immature Granulocyte % (Auto) 1.5 % Immature Granulocyte # (Auto) 0.13 K/uL (0.00-0.02) Anion Gap 8.0 mmol/L (3-11) Est Creatinine Clear Calc Drug Dose 51.8 ml/min Estimated GFR () 93.8 Estimated GFR (Non- 80.9 BUN/Creatinine Ratio 12.0 (10-20) Calcium Level 7.8 mg/dl (8.5-10.1) Phosphorus Level 1.9 mg/dl (2.5-4.9) Last 24 Hours Test 02/23/17 05:53 White Blood Count 8.64 K/uL Red Blood Count 3.43 M/uL Hemoglobin 9.2 g/dL Hematocrit 28.0 % Mean Corpuscular Volume 81.6 fL Mean Corpuscular Hemoglobin 26.8 pg Mean Corpuscular Hemoglobin Concent 32.9 g/dl Platelet Count 316 K/uL Mean Platelet Volume 10.4 fL Neutrophils (%) (Auto) 62.7 % Lymphocytes (%) (Auto) 19.7 % Monocytes (%) (Auto) 12.6 % Eosinophils (%) (Auto) 2.8 % Basophils (%) (Auto) 0.7 % Neutrophils # (Auto) 5.42 K/uL Lymphocytes # (Auto) 1.70 K/uL Monocytes # (Auto) 1.09 K/uL Eosinophils # (Auto) 0.24 K/uL Basophils # (Auto) 0.06 K/uL RDW Standard Deviation 44.0 fL RDW Coefficient of Variation 14.8 % Immature Granulocyte % (Auto) 1.5 % Immature Granulocyte # (Auto) 0.13 K/uL Sodium Level 140 mmol/L Potassium Level 3.5 mmol/L Chloride Level 105 mmol/L Carbon Dioxide Level 27 mmol/L Anion Gap 8.0 mmol/L Blood Urea Nitrogen 8 mg/dl Creatinine 0.68 mg/dl Est Creatinine Clear Calc Drug Dose 51.8 ml/min Estimated GFR () 93.8 Estimated GFR (Non- 80.9 BUN/Creatinine Ratio 12.0 Random Glucose 81 mg/dl Calcium Level 7.8 mg/dl Phosphorus Level 1.9 mg/dl Assessment and Plan 81-year-old female p/w with persistent temperature x 2 DAYS. She underwent a rectal tumor resection by Dr. Mcpherson at [facility] on 02/15 (S/P transanal excision of rectal mass at [facility]). CT abdomen showed complex free fluid within the pelvic cul-de-sac (possible hemorrhagic fluid) versus the less likely possibility of a low density mass SIRS-resolved -? intra abdominal sepsis (recent transrectal operation)-->more likely secondary to UTI given quick improvement -continue zosyn (started 02/17) Ucx growing sensitive E coli-->Could switch to Cipro po upon d/c -Vanco was stopped -Blood cx neg -Gen surg following -Was on stress dose steroids--> changed over to her usual prednisone 5 mg daily Constipation-resolved with milk of magnesia that was started yesterday -Would continue scheduled milk of magnesia (hold for diarrhea) Hematochezia-likely related to surgery. Hgb stable. -Check CBC in the morning Rectal tumor status post recent resection- -Needs f/u with Dr. Rolle in 1 week Urinary retention, likely post surgical urethral sphincter spasm-now voiding history of DVT s/p IVC filter insertion in 2014 when anticoagulation caused GI bleeding -No AC given rectal bleeding Hx of paroxysmal Atrial fibrillation-currently sinus rhythm -currently rate controlled / sinus -continue amiodarone -Continue B Audrey -Continue to hold AC-->f/u with cards in 2 weeks. Possibly restart then Hx Gastric ulcer in Nov 2016 -continue Pantoprazole 40 mg po BID and sucralfate 1 g by mouth 4 times a day. Anemia-multifactoral. MM, iron deficient, folate deficient, bleeding -folic acid 1 mg daily -Begin FeSO4 325 mg Daily -check CBC in AM CAD/status post CABG -Continue metoprolol succinate 25 mg -Currently not on Aspirin d/t bleeding risk Hypothyroidism -continue levothyroxine sodium 75 g by mouth every morning Multiple myeloma / hypercalcemia -Continue prednisone 5mg daily (maintenance) continue Sensipar 30 mg by mouth every morning. Hypercholesterolemia -continue pravastatin 20 mg by mouth on Wednesday and Wednesday. DVT prophylaxis -Heparin 5000 u ON HOLD -SCDs/TEDs -AMBULATE CODE STATUS -LEVEL I FULL CODE DISPO -likely home tomorrow, will need [facility] set up This chart was completed in part utilizing [email or web address] Speech Voice Recognition software. Attempts were made to minimize the grammatical errors, random word insertions, pronoun errors and incomplete sentences. Any formal questions or concerns about the content, text or information contained within the body of this dictation should be directly addressed to the provider for clarification.
[2017-02-23] MEDS: METRONIDAZOLE 500 MG TAB PO SCH ×2 (13:39→20:50)
[2017-02-23 14:59] VITALS: BP 153/71; PULSE 58; TEMP 36.9; O2SAT 96
[2017-02-23 16:22] VITALS: O2SAT 96
[2017-02-23] MEDS: FERROUS SULFATE 325 MG TAB PO SCH (17:12)
[2017-02-23] MEDS: MAGNESIUM HYDROXIDE SUSP 30 ML UDC PO SCH (20:49)
[2017-02-23] MEDS: CIPROFLOXACIN 500 MG TAB PO SCH (20:49)
[2017-02-23] MEDS: ACYCLOVIR 400 MG TAB PO SCH (20:50)
[2017-02-24 00:17] VITALS: BP 167/71; PULSE 61; TEMP 36.6; O2SAT 96
[2017-02-24] MEDS: LEVOTHYROXINE 75 MCG TAB PO SCH (06:03)
[2017-02-24 06:46] VITALS: BP 165/71; PULSE 61; TEMP 36.7; O2SAT 96
[2017-02-24 06:58] LABS: BASO % 0.6 %; BASO ABS # 0.05 K/uL (0-0.2); COMPLETE YES; EOS % 3.3 %; HEMATOCRIT 27.9 % (37-47); LYMPH ABS # 1.85 K/uL (1.2-3.4); MEAN CORPUSCULAR HEMOGLOBIN 27.4 pg (25-34); MONO % 13.8 %; NEUT % 57.3 %; PLATELET COUNT 332 K/uL (130-400); RED BLOOD COUNT 3.36 M/uL (4.2-5.4); WHITE BLOOD COUNT 8.06 K/uL (4.8-10.8)
[2017-02-24 07:15] LABS: BUN/CREATININE RATIO 18.1 (10-20); CALCIUM 7.8 mg/dl (8.5-10.1); CREATININE 0.58 mg/dl (0.60-1.20); POTASSIUM 3.4 mmol/L (3.5-5.1)
[2017-02-24] MEDS: ACETAMINOPHEN 325 MG TAB PO PRN (08:22)
[2017-02-24] MEDS: AMIODARONE 200 MG TAB PO SCH (08:23)
[2017-02-24] MEDS: MAGNESIUM HYDROXIDE SUSP 30 ML UDC PO SCH ×2 (08:23→08:34)
[2017-02-24] MEDS: METRONIDAZOLE 500 MG TAB PO SCH (08:24)
[2017-02-24] MEDS: CIPROFLOXACIN 500 MG TAB PO SCH (08:24)
[2017-02-24] MEDS: FERROUS SULFATE 325 MG TAB PO SCH (08:24)
[2017-02-24] MEDS: SUCRALFATE 1 GM TAB PO SCH (08:25)
[2017-02-24] MEDS: PANTOprazole SOD 40 MG TAB PO SCH (08:25)
[2017-02-24] MEDS: CINACALCET 30 MG TAB PO SCH (08:25)
[2017-02-24] MEDS ORDERED: FRRS300 PO (10:00)
[2017-02-24] MEDS ORDERED: CPR500 PO (10:00)
[2017-02-24] MEDS ORDERED: AMIO200T4 PO (10:00)
--- NOTE | 2017-02-24 10:09 | Discharge Instructions ---
Discharge Instructions Date of Service Feb 24, 2017. Admission Reason for Admission: Urinary Tract Infection, constipation after rectal surgery Discharge Discharge Diagnosis / Problem: UTI, constipation Discharge Goals Goal(s): Decrease discomfort, Improve function Activity Recommendations Activity Limitations: resume your previous activity Lifting Limitations: until after follow-up appointment (with rectal surgery) Exercise/Sports Limitations: as tolerated Shower/Bathe: no limitations Driving or Machine Use: no limitations . Instructions / Follow-Up Instructions / Follow-Up Medications: - CIPRO: antibiotic for UTI, culture grew E coli, was sensitive to Cipro, only 5 more doses needed, starting tonight, take twice a day - AMIODARONE: as planned with cardiology prior to surgery, you should decrease dose to 200mg daily, follow up with cardiology for further instructions - FERROUS SULFATE: iron supplement since ferritin was low at 37, please take twice a day UTI: you presented with signs of systemic infection, urine culture grew out E coli, blood cultures negative, the E coli was sensitive to Cipro so you were converted to oral Cipro you received 7 complete days of treatment in the hospital, you need three more days starting this AM, take 5 more doses starting tonight you have not had a fever, vitals stable Recent resection of rectal tumor: moving bowels now, some bleeding but small amount, your blood counts have been stable please follow up on Wednesday with surgeon Atrial fibrillation: rates controlled, continue Amiodarone but now at 200mg daily instead of twice a day, continue Toprol 25mg in the morning please follow up with Miguel or Dr. Wiley in two weeks to discuss anticoagulation looking over prior notes, you are considered high risk for bleeding due to two separate severe GI bleeds so it was GI recommendation in past to avoid anticoagulation You were evaluated by therapy, recommended that you consider inpatient rehab but you have refused. We will set up home health and home physical therapy FOLLOW UP - Dr. Garcia on Wednesday as previously scheduled - Cardiology in two weeks, call for appointment - Dr. Woody in 1-2 weeks for hospital follow up Current Hospital Diet Patient's current hospital diet: Regular Diet Discharge Diet Recommended Diet: Regular Diet Procedures Procedures Performed: none Pending Studies Studies pending at discharge: no Laboratory Results Last Resulted CBC 02/24/17 06:30 Red Blood Count 3.36, Mean Corpuscular Volume 83.0, Mean Corpuscular Hemoglobin 27.4, Mean Corpuscular Hemoglobin Concent 33.0, Mean Platelet Volume 10.0, Neutrophils (%) (Auto) 57.3, Lymphocytes (%) (Auto) 23.0, Monocytes (%) (Auto) 13.8, Eosinophils (%) (Auto) 3.3, Basophils (%) (Auto) 0.6, Neutrophils # (Auto ) 4.62, Lymphocytes # (Auto) 1.85, Monocytes # (Auto) 1.11, Eosinophils # (Auto ) 0.27, Basophils # (Auto) 0.05 Last Resulted BMP 02/24/17 06:30 Lipid Panel Test 02/11/17 12:00 Range/Units Triglycerides Level 111 0-150 mg/dl Cholesterol Level 191 0-200 mg/dl HDL Cholesterol 69 mg/dl Cholesterol/HDL Ratio 2.8 LDL Cholesterol, Calculated 100 mg/dl Medical Emergencies . Who to Call and When: Medical Emergencies: If at any time you feel your situation is an emergency, please call 911 immediately. . Non-Emergent Contact Non-Emergency issues call your: Primary Care Provider, Surgeon Call Non-Emergent contact if: you have a fever, your pain is unusual for you, you have any medication questions . . "Provider Documentation" section prepared by Myles Riggs. VTE Core Measure Inpt VTE Proph given/why not?: SCD's [place] Drug Monitoring Program Search Results: no issues identified
[2017-02-24 10:16] VITALS: BP 165/71; PULSE 61; TEMP 36.7; O2SAT 96
--- NOTE | 2017-02-24 10:19 | Discharge Summary ---
Discharge Summary Date of Service Feb 24, 2017. Discharge Summary Admission Date: Feb 17, 2017 at 21:49 Discharge Date: Feb 24, 2017 Discharge Disposition: Home with services Principal Diagnosis: SIRS with UTI Problems/Secondary Diagnoses: constipation after resection of rectal tumor paroxysmal atrial fibrillation h/o PUD with GI bleeding iron deficiency anxiety Immunizations: Have You Had Influenza Vaccine: Yes History of Tetanus Vaccine?: unknown History of Pneumococcal: Yes History of Hepatitis B Vaccine: Yes Procedures: none Consultations: General surgery Medication Reconciliation New Medications: Ciprofloxacin (Ciprofloxacin HCl) 500 Mg Tab 500 MG PO BID, #5 TAB 0 Refills Ferrous Sulfate (Ferrous Sulfate) 325 Mg Tab 325 MG PO BIDM, #60 TAB 3 Refills Changed Medications: Amiodarone Hcl (Cordarone) 200 Mg Tab 200 MG PO DAILY, #30 TABS 3 Refills (Changed from: BID; Refills: ) Continued Medications: Acyclovir (Acyclovir) 400 Mg Tab 1 TAB PO QPM Cholecalciferol (Vitamin D 1000 Unit) 1,000 Unit Cap 1000 INTER.UNIT PO LUNCH Cinacalcet (Sensipar) 30 Mg Tab 30 MG PO QAM Glucosamine Sulfate (Glucosamine) 500 Mg Cap 1 TAB PO LUNCH Levothyroxine Sodium (Synthroid) 75 Mcg Tab 75 MCG PO QAM Metoprolol Succinate (Toprol Xl) 50 Mg Tabcr 25 MG PO QAM Pantoprazole (Protonix) 40 Mg Tab 40 MG PO BID Potassium Ext Rel (Klor-Con) 20 Meq Tabcr 20 MEQ PO LUNCH Pravastatin (Pravachol ) 20 Mg Tab 20 MG PO MWF, TAB TAKE AT BEDTIME Prednisone (Prednisone) 5 Mg Tab 5 MG PO QAM Sucralfate (Sucralfate) 1 Gm Tab 1 GM PO QID Zoledronic Acid (Zometa) 4 Mg/100 Ml Inj 1 DOSE IV [id number] NEXT INFUSION SCHEDULED 01-06-17 Discharge Exam Patient feeling well today, moving bowels, eating well, no abdominal pain. Says she feels a little "shaky" but feels like she is ready to go home. Discussed that therapy recommended rehab but she prefers to go home with home health and home therapy. discussed medications on discharge. answered all questions. Review of Systems: Constitutional: + fatigue, + weakness, No chills, No fever, No problem reported, No sweats, No weight loss Eyes: No diplopia, No discharge, No eye pain, No problem reported, No redness, No worsening of vision ENT: No dental problems, No hearing loss, No nasal symptoms, No problem reported, No sore throat, No tinnitus, No trouble swallowing, No unusual epistaxis Respiratory: No cough, No dyspnea at rest, No dyspnea on exertion, No hemoptysis, No problem reported, No shortness of breath, No sputum, No wheezing Cardiovascular: No PND, No chest pain, No claudication, No edema, No orthopnea, No palpitations, No problem reported Abdomen: + diarrhea (bowels loose now, typical for her), No GI bleeding, No constipation, No nausea, No pain, No problem reported, No vomiting Musculoskeletal: No calf pain, No joint pain, No muscle pain, No problem reported, No swelling Genitourinary - Female: No dysuria, No urinary frequency, No urinary incontinence, No urinary urgency Neurologic: + weakness, No balance problems, No memory loss, No numbness/ tingling, No paralysis, No problem reported, No vertigo Psychiatric: + anxiety, No anhedonism, No depression symptoms, No insomnia, No problem reported, No substance abuse Endocrine: No excessive thirst, No excessive urination, No fatigue, No problem reported Hematologic / Lymphatic: No abnormal bleeding/bruising, No clotting problems , No night sweats, No problem reported, No swollen lymph nodes Integumentary: No bleeding, No color change, No itch, No new/changing skin lesions, No problem reported, No rash Physical Exam: General Appearance: WD/WN, no apparent distress Eyes: normal inspection, EOMI, sclerae normal ENT: normal ENT inspection, hearing grossly normal, pharynx normal Neck: supple, no adenopathy, no JVD, trachea midline Respiratory/Chest: chest non-tender, lungs clear, normal breath sounds, no respiratory distress, no accessory muscle use Cardiovascular: regular rate, rhythm, no edema, no gallop, no JVD, no murmur , normal peripheral pulses Abdomen / GI: normal bowel sounds, non tender, soft, no organomegaly Extremities: normal inspection, no calf tenderness, normal capillary refill , no pedal edema, normal range of motion 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 She underwent a rectal tumor resection by Dr. Carr at [facility] on 02/15 (S/P transanal excision of rectal mass at [facility] CT abdomen showed complex free fluid within the pelvic cul-de-sac (possible hemorrhagic fluid) versus the less likely possibility of a low density mass SIRS-resolved, was due to E coli UTI that was likely secondary to recent surgery - treated with Zosyn IV initially to cover both urine and intra-abdominal sources of infection - urine culture grew E coli, sensitive to Cipro, changed to PO cipro and plan for 3 more days of treatment - initially on stress dose steroids, changed back to Prednisone 5mg Constipation-resolved with milk of magnesia - continue over the counter bowel regimen, she says she knows what works for her Hematochezia-likely related to surgery. Hgb stable. - will follow up with Dr. Garcia in 5 days Rectal tumor status post recent resection- - scheduled for follow up with Dr. Garcia on Thursday 03/01 Urinary retention, likely post surgical urethral sphincter spasm-now voiding history of DVT s/p IVC filter insertion in 2014 when anticoagulation caused GI bleeding -No AC given rectal bleeding Hx of paroxysmal Atrial fibrillation-currently sinus rhythm -currently rate controlled / sinus -continue amiodarone but decrease to 200mg daily from BID as planned by cardiology -Continue toprol 25mg daily -Continue to hold AC-- past notes from November 2016 indicated that she was high risk for bleeding due to h/o two separate severe GI bleeds given that she is in sinus rhythm and on Amiodarone, no plans for AC can follow up with cardiology in two weeks to discuss further Hx Gastric ulcer in Nov 2016 -continue Pantoprazole 40 mg po BID and sucralfate 1 g by mouth 4 times a day. Anemia-multifactoral. MM, iron deficient, folate deficient, bleeding -folic acid 1 mg daily -Begin FeSO4 325 mg BID CAD/status post CABG -Continue metoprolol succinate 25 mg -Currently not on Aspirin d/t bleeding risk - could likely resume aspirin in the future if okay with Dr. Garcia Hypothyroidism -continue levothyroxine sodium 75 g by mouth every morning Multiple myeloma / hypercalcemia -Continue prednisone 5mg daily (maintenance) continue Sensipar 30 mg by mouth every morning. Hypercholesterolemia -continue pravastatin 20 mg by mouth on Wednesday and Wednesday. DVT prophylaxis -SCDs/TEDs -AMBULATE CODE STATUS -LEVEL I FULL CODE Total Time Spent: Greater than 30 minutes This includes examination of the patient, discharge planning, medication reconciliation, and communication with other providers. Discharge Instructions Please refer to the electronic Patient Visit Report (Discharge Instructions) for additional information. Follow-Up Dr. Garcia on Thursday 03/01 Dr. Wiley in two weeks Dr. Woody in 1-2 weeks Additional Copies To Edgar Wiley M.D.; Alexandr Garcia M.D.; ,Hussain Silva M.D.
[2017-02-24] MEDS: POTASSIUM CHLORIDE 20 MEQ TABCR PO SCH (11:28)
[2017-02-24] MEDS: GLUCOSAMINE SULFATE 500 MG CAP PO SCH (11:28)
[2017-02-24] MEDS: CHOLECALCIFEROL 1000 INTER.UNIT TAB PO SCH (11:29)
[2017-03-16] MEDS ORDERED: CHOL1000 PO (10:24)
[2017-03-16] MEDS ORDERED: POTA20TA16 PO (10:24)
[2017-03-16] MEDS ORDERED: ACYC-57 PO (10:24)
[2017-03-16] MEDS ORDERED: AMIO0.1T PO (10:24)
[2017-03-16] MEDS ORDERED: GLUC500T35 PO (10:24)
[2017-04-12] MEDS ORDERED: XLD/500 PO (18:50)
[2017-04-12] MEDS ORDERED: FERR1TAB23 PO (18:50)
[2017-09-13] MEDS ORDERED: CINA0.42 PO (13:00)
[2017-09-13] MEDS ORDERED: LEVO75TA5 PO (13:00)
[2017-09-13] MEDS ORDERED: [UNRECOGNIZED DRUG - CODE] IV (13:00)
[2017-09-13] MEDS ORDERED: TPRSR/25 PO (13:00)
[2017-09-13] MEDS ORDERED: MCRK20 PO (13:00)
[2017-09-13] MEDS ORDERED: PANT40TA PO (13:00)
[2017-09-13] MEDS ORDERED: MRLP17X PO (13:00)
[2017-09-13] MEDS ORDERED: CHOL1000 PO (13:00)
[2017-09-13] MEDS ORDERED: METHPOW7 PO (13:00)
[2017-09-13] MEDS ORDERED: LORA-741 PO (13:00)
[2017-09-13] MEDS ORDERED: ACET-1256 PO (13:00)
[2017-09-13] MEDS ORDERED: GLUC500C4 PO (13:00)
[2017-09-13] MEDS ORDERED: CYAN100020 PO (13:00)
[2017-09-13] MEDS ORDERED: PRED-301 PO (13:00)
[2017-09-13] MEDS ORDERED: AMIO200T4 PO (13:00)
[2017-09-13] MEDS ORDERED: FERR325T18 PO (13:00)
[2017-09-13] MEDS ORDERED: ONDA8TAB6 PO (13:00)
[2017-09-13] MEDS ORDERED: SUCR1TAB29 PO (13:00)
== END 2017-02-24 12:33 | disposition home health service (06) | DRG 871 ==
LOC: ENRESERVDT → ENRESERVTM → C.EDB 16:37 → C.MS4W 21:49 → C.MS2W 02-20 12:08
PROVIDERS: ADMIT Hospitalist; ATTEND Internal Medicine
DX: A41.51 Sepsis due to Escherichia coli [E. coli] (principal); J18.9 Pneumonia, unspecified organism; N39.0 Urinary tract infection, site not specified; C90.00 Multiple myeloma not having achieved remission; I48.91 Unspecified atrial fibrillation; I25.10 Atherosclerotic heart disease of native coronary artery without angina pectoris; I10 Essential (primary) hypertension; Z95.1 Presence of aortocoronary bypass graft; E21.3 Hyperparathyroidism, unspecified; Z98.890 Other specified postprocedural states; Z83.3 Family history of diabetes mellitus; Z88.2 Allergy status to sulfonamides; I48.0 Paroxysmal atrial fibrillation; K59.09 Other constipation; F41.9 Anxiety disorder, unspecified; D50.9 Iron deficiency anemia, unspecified; R33.8 Other retention of urine; N35.9 Urethral stricture, unspecified; E78.00 Pure hypercholesterolemia, unspecified; Z86.718 Personal history of other venous thrombosis and embolism

== ENCOUNTER 2017-02-25 12:39 | Emergency (ER) | payer OTHER ==
[~2017-02-25] VITALS: Ht 160 cm; Wt 60.0 kg
[~2017-02-25 12:39] MED LIST changes: +CPR500 PO; +FRRS300 PO
[2017-02-25 12:51] VITALS: TEMP 37.1; Ht 160 cm; Wt 60.0 kg
--- NOTE | 2017-02-25 14:21 | EMERGENCY ROOM VISIT NOTE ---
History Report prepared by Ambrosio: Marge Kurtz Under the Supervision of: Dr. Kaylene Ray D.O. First contact with patient: 14:10 Chief Complaint: LEG PAIN,LEG INJURY Stated Complaint: BLOOD CLOTS LOWER LEGS History of Present Illness The patient is a 81 year old female who presents to the Emergency Room with complaints of persistent bilateral leg discomfort that began this morning. Per patient's son, the patient recently had outpatient rectal surgery to remove a tumor at [place]. Two days later, she was admitted to [facility] for a fever , UTI, and pneumonia. She was discharged yesterday. Yesterday was the first day she was up and walking in about a week. Last night, the patient felt some discomfort in her legs when she wiggled her toes. This morning, she noticed some swelling in her left ankle. Since then, she has developed some numbness to her right ankle. The patient is suspicious of blood clots, as she has had blood clots in both of her legs before. She has never had a PE. The patient was on Plavix but was instructed to stop taking it prior to her surgery. Dr. Wiley and Dr. Woody are currently considering a new anticoagulation plan. She is arranging follow up appointments with them. Denies shortness of breath, abdominal pain, or other complaints. Source of History: patient, family (son) Onset: today Position: leg (bilateral) Quality: other (discomfort (left swollen, right numb)) Timing: other (persistent) Associated Symptoms: No SOB, No abdominal pain Review of Systems See HPI for pertinent positives & negatives. A total of 10 systems reviewed and were otherwise negative. 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) (3) S/P hysterectomy Family History Diabetes Hypertension Social History Smoking Status: Never Smoker Alcohol Use: none Drug Use: none Housing Status: lives with significant other Occupation Status: retired Current/Historical Medications Scheduled Acyclovir (Acyclovir), 1 TAB PO QPM Amiodarone Hcl (Cordarone), 200 MG PO DAILY Cholecalciferol (Vitamin D 1000 Unit), 1,000 INTER.UNIT PO LUNCH Cinacalcet (Sensipar), 30 MG PO QAM Ciprofloxacin (Ciprofloxacin HCl), 500 MG PO BID Ferrous Sulfate (Ferrous Sulfate), 325 MG PO BIDM Glucosamine Sulfate (Glucosamine), 1 TAB PO LUNCH Levothyroxine Sodium (Synthroid), 75 MCG PO QAM Metoprolol Succinate (Toprol Xl), 25 MG PO QAM Pantoprazole (Protonix), 40 MG PO BID Potassium Ext Rel (Klor-Con), 20 MEQ PO LUNCH Pravastatin (Pravachol ), 20 MG PO MWF Prednisone (Prednisone), 5 MG PO QAM Sucralfate (Sucralfate), 1 GM PO QID Zoledronic Acid (Zometa), 1 DOSE IV [id number] Allergies Coded Allergies: Aspartame (Verified Allergy, Mild, HEADACHES, N/V, 02/17/17) Shellfish (Verified Allergy, Mild, HEADACHE AND N/V, 02/17/17) Ciprofloxacin (Verified Allergy, Unknown, ELEVATED BLOOD PRESSURE, 02/17/17 ) Iodinated Diagnostic Agents (Verified Allergy, Unknown, R/T SHELLFISH ALLERGY, 02/17/17) Nitrofurantoin (Verified Allergy, Unknown, GI UPSET AND ABDOMINAL PAIN/ SWELLING, 02/17/17) Quinolones (Verified Allergy, Unknown, CIPRO - ELEVATED BLOOD PRESSURE, ) Sulfa Antibiotics (Verified Allergy, Unknown, UNKNOWN - PT STATES DOES NOT REMEMBER, 02/17/17) Physical Exam Vital Signs Date Time Temp Pulse Resp B/P Pulse Ox O2 Delivery O2 Flow Rate FiO2 02/25/17 16:11 64 18 153/64 98 Room Air 02/25/17 14:50 94 15 158/92 97 Room Air 02/25/17 12:51 37.1 69 18 154/73 98 Room Air Physical Exam HEENT: Head - normocephalic and atraumatic Pupils are equal, round, and reactive to light. Extraocular eye muscles are intact, and sclera are anicteric. Nose - moist nasal mucosa without discharge. Mouth - moist buccal mucosa. Oropharynx is nonerythematous and there is no tonsillar exudate or edema noted. Neck: Supple; no JVD, nuchal rigidity, cervical lymphadenopathy. Heart: Regular rate and rhythm. There is a normal S1 and S2 with no murmurs, clicks, or gallops appreciated. Lungs: Clear to auscultation bilaterally with no wheezes, rales, or rhonchi. Abdomen: Soft, completely nontender, nondistended, with good bowel sounds. There are no palpable pulsatile masses or hepatosplenomegaly. There is no guarding, rigidity, or rebound noted. Extremities: No evidence of cyanosis or clubbing. Trace pedal edema. There are easily palpable peripheral pulses. Skin: warm and dry with good turgor and no rashes. Medical Decision & Procedures ER Provider Diagnostic Interpretation: Radiology results as stated below per my review and the radiologist's interpretation: BILATERAL LOWER EXTREMITY VENOUS DOPPLER CLINICAL HISTORY: Blood clots in lower legs. COMPARISON STUDY: Bilateral lower extremity venous Doppler January 29, 2015. TECHNIQUE: Sonography of the deep venous system of the bilateral lower extremities was performed. Compression and augmentation were evaluated. FINDINGS: Stranding within the right common femoral vein reflects old minimal chronic thrombus. Wall thickening of the right femoral vein suggests chronic thrombus as well. There is no evidence for acute deep venous thrombus within the right lower extremity. There is thrombus within the left common femoral vein. This is age indeterminate but diminished when compared to exam of January 29, 2015. Wall thickening of the left superficial femoral vein reflects minimal chronic thrombus. There is also chronic thrombus within the left popliteal vein. IMPRESSION: Deep venous thrombus in the bilateral common femoral, superficial femoral and popliteal veins, significantly diminished when compared to ultrasound of January 29, 2015. The majority, if not all, of this thrombus is chronic. The thrombus within left common femoral vein is age indeterminate although chronic thrombus is favored. Electronically signed by: Francis Cuenca M.D. 02/25/2017 3:38 PM Dictated Date/Time: 02/25/2017 3:34 PM ED Course 1412: Past medical records reviewed. The patient was evaluated in room A4B. A complete history and physical exam was performed. The patient went for bilateral lower extremity duplex. 1552: I reassessed the patient and updated her on results. I am waiting to speak with Dr. Woody. 1557: I discussed the case with Dr. Woody. He will see her in the office tomorrow or Wednesday. 1601: Upon reevaluation, the patient was resting comfortably. I discussed my conversation with Dr. Woody with the patient. She verbalized agreement of the treatment plan. The patient was discharged home. Medical Decision The patient is a 81 year old female who presents to the ED with bilateral leg discomfort. Differential diagnosis includes pedal edema, DVT, superficial thrombophlebitis. The patient has a history of chronic lower extremity DVTs. It appears that the ultrasound from today has less clot burden compared to the ultrasound from January. Patient has very little discomfort in her legs. There is only slight lower extremity edema. The patient will follow-up with her PCP tomorrow or Wednesday to discuss her outpatient medications. She was told to return to the emergency department if she had increased pain in her legs, fevers or any shortness of breath. 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 I confirm that the note above accurately reflects all work, treatment, procedures, and medical decision making performed by me. Departure Information Dispostion Home / Self-Care Referrals Hussain Woody M.D. (PCP) Patient Instructions [facility] Additional Instructions Follow up as directed with Dr. Woody. His office will call you Return to the ER if you have increased swelling or pain in your legs
--- NOTE | 2017-02-25 15:40 | DIAGNOSTIC IMAGING REPORT ---
BILATERAL LOWER EXTREMITY VENOUS DOPPLER CLINICAL HISTORY: Blood clots in lower legs. COMPARISON STUDY: Bilateral lower extremity venous Doppler January 29, 2015. TECHNIQUE: Sonography of the deep venous system of the bilateral lower extremities was performed. Compression and augmentation were evaluated. FINDINGS: Stranding within the right common femoral vein reflects old minimal chronic thrombus. Wall thickening of the right femoral vein suggests chronic thrombus as well. There is no evidence for acute deep venous thrombus within the right lower extremity. There is thrombus within the left common femoral vein. This is age indeterminate but diminished when compared to exam of January 29, 2015. Wall thickening of the left superficial femoral vein reflects minimal chronic thrombus. There is also chronic thrombus within the left popliteal vein. IMPRESSION: Deep venous thrombus in the bilateral common femoral, superficial femoral and popliteal veins, significantly diminished when compared to ultrasound of January 29, 2015. The majority, if not all, of this thrombus is chronic. The thrombus within left common femoral vein is age indeterminate although chronic thrombus is favored. Electronically signed by: Francis Cuenca M.D. 02/25/2017 3:38 PM Dictated Date/Time: 02/25/2017 3:34 PM
[2017-02-25 16:11] VITALS: BP 153/64; PULSE 64; O2SAT 98
[2017-03-16] MEDS ORDERED: POTA20TA16 PO (10:24)
[2017-03-16] MEDS ORDERED: CHOL1000 PO (10:24)
[2017-03-16] MEDS ORDERED: AMIO0.1T PO (10:24)
[2017-03-16] MEDS ORDERED: GLUC500T35 PO (10:24)
[2017-03-16] MEDS ORDERED: ACYC-57 PO (10:24)
[2017-04-12] MEDS ORDERED: FERR1TAB23 PO (18:50)
[2017-04-12] MEDS ORDERED: XLD/500 PO (18:50)
[2017-09-13] MEDS ORDERED: FERR325T18 PO (13:00)
[2017-09-13] MEDS ORDERED: LEVO75TA5 PO (13:00)
[2017-09-13] MEDS ORDERED: PANT40TA PO (13:00)
[2017-09-13] MEDS ORDERED: CINA0.42 PO (13:00)
[2017-09-13] MEDS ORDERED: MCRK20 PO (13:00)
[2017-09-13] MEDS ORDERED: MRLP17X PO (13:00)
[2017-09-13] MEDS ORDERED: LORA-741 PO (13:00)
[2017-09-13] MEDS ORDERED: TPRSR/25 PO (13:00)
[2017-09-13] MEDS ORDERED: ACET-1256 PO (13:00)
[2017-09-13] MEDS ORDERED: GLUC500C4 PO (13:00)
[2017-09-13] MEDS ORDERED: SUCR1TAB29 PO (13:00)
[2017-09-13] MEDS ORDERED: PRED-301 PO (13:00)
[2017-09-13] MEDS ORDERED: ONDA8TAB6 PO (13:00)
[2017-09-13] MEDS ORDERED: AMIO200T4 PO (13:00)
[2017-09-13] MEDS ORDERED: [UNRECOGNIZED DRUG - CODE] IV (13:00)
[2017-09-13] MEDS ORDERED: CHOL1000 PO (13:00)
[2017-09-13] MEDS ORDERED: METHPOW7 PO (13:00)
[2017-09-13] MEDS ORDERED: CYAN100020 PO (13:00)
== END 2017-02-25 16:12 | disposition home or self-care (01) ==
LOC: C.EDB 12:43 → C.EDA 16:12
DX: I82.503 Chronic embolism and thrombosis of unspecified deep veins of lower extremity, bilateral (principal); D64.9 Anemia, unspecified; I48.91 Unspecified atrial fibrillation; I25.10 Atherosclerotic heart disease of native coronary artery without angina pectoris; I10 Essential (primary) hypertension; E03.9 Hypothyroidism, unspecified; E21.3 Hyperparathyroidism, unspecified; C90.00 Multiple myeloma not having achieved remission; Z86.718 Personal history of other venous thrombosis and embolism; Z95.1 Presence of aortocoronary bypass graft; Z90.710 Acquired absence of both cervix and uterus; Z83.3 Family history of diabetes mellitus; Z82.49 Family history of ischemic heart disease and other diseases of the circulatory system

== ENCOUNTER → 2017-03-11 | Outpatient (CLI) | payer OTHER ==
[~2017-03-11] MED LIST changes: +ACET-1256 PO; +ACET-1311 PO; +ACYC-57 PO; +AMIO0.1T PO; +CEFU250T15 PO; +CHOL1000 PO; +CYAN100020 PO; +FERR1TAB23 PO; +FERR325T18 PO; +GLUC500T35 PO; +LEVO75TA5 PO; +LORA-741 PO; +MCRK20 PO; +METHPOW7; +METHPOW7 PO; +MRLP17X PO; +ONDA4TAB46 PO; +ONDA8TAB6 PO; +SUCR1TAB29 PO; +TPRSR/25 PO; +XLD/500 PO; +[UNRECOGNIZED DRUG - CODE] IV
[2017-03-11 18:43] LABS: URINE APPEARANCE CLEAR (CLEAR); URINE BILIRUBIN NEG (NEG); URINE COLOR YELLOW; URINE EPITHELIAL CELL AUTO >30 /lpf (0-5); URINE NITRITE NEG (NEG); URINE SPECIFIC GRAVITY 1.015 (1.000-1.030); UROBILINOGEN NEG (NEG)
[2017-03-11 18:51] LABS: MANUAL MICROSCOPIC REQUIRED? NO; REVIEW REQ? YES
== END | disposition home or self-care (01) ==
LOC: C.LABSPEC 18:00
PROVIDERS: ATTEND Internal Medicine
DX: N39.0 Urinary tract infection, site not specified (principal)

== ENCOUNTER → 2017-03-17 | Outpatient (CLI) | payer OTHER ==
[~2017-03-17] MED LIST changes: -CHOL100027 PO; -CPR500 PO; -ZVR400 PO
[2017-03-17 16:03] LABS: BASO % 0.8 %; BASO ABS # 0.04 K/uL (0-0.2); COMPLETE YES; EOS % 0.6 %; HEMATOCRIT 32.2 % (37-47); IG% 0.2 %; LYMPH % 19.2 %; LYMPH ABS # 1.01 K/uL (1.2-3.4); MEAN CELL VOLUME 84.1 fL (80-100); MEAN CORPUSCULAR HEMOGLOBIN 26.6 pg (25-34); MEAN CORPUSCULAR HGB CONC 31.7 g/dl (32-36); MEAN PLATELET VOLUME 10.2 fL (7.4-10.4); MONO % 8.9 %; NEUT % 70.3 %; PLATELET COUNT 270 K/uL (130-400); RED BLOOD COUNT 3.83 M/uL (4.2-5.4); WHITE BLOOD COUNT 5.26 K/uL (4.8-10.8)
[2017-03-17 16:34] LABS: ALT/SGPT 20 U/L (12-78); AST/SGOT 16 U/L (15-37); BLOOD UREA NITROGEN 13 mg/dl (7-18); BUN/CREATININE RATIO 16.8 (10-20); CALCIUM 9.1 mg/dl (8.5-10.1); CARBON DIOXIDE 27 mmol/L (21-32); CHLORIDE 109 mmol/L (98-107); CREATININE 0.76 mg/dl (0.60-1.20); GLUCOSE 101 mg/dl (70-99); SODIUM 141 mmol/L (136-145)
[2017-03-17 16:50] LABS: ALB/GLOB RATIO 0.9 (0.9-2); ALKALINE PHOSPHATASE 58 U/L (45-117); IMMUNOGLOBULN A 79.1 mg/dL (70-400); IMMUNOGLOBULN M 47.3 mg/dL (40-230)
[2017-03-19 14:53] LABS: FREE KAPPA 34.5 MG/L (3.3-19.4); FREE KAPPA/LAMBDA RATIO 1.72 (0.26-1.65); FREE LAMBDA 20.1 MG/L (5.7-26.3)
== END | disposition home or self-care (01) ==
LOC: C.LAB1850 15:23
PROVIDERS: ATTEND Internal Medicine Hematology & Oncology
DX: C90.00 Multiple myeloma not having achieved remission (principal)

== ENCOUNTER → 2017-04-23 | Outpatient (CLI) | payer OTHER ==
[~2017-04-23] MED LIST changes: -FRRS300 PO
[2017-04-23 13:47] LABS: IMMUNOGLOBULN A 70.2 mg/dL (70-400); IMMUNOGLOBULN M 47.9 mg/dL (40-230)
[2017-04-26 11:20] LABS: FREE KAPPA 21.3 MG/L (3.3-19.4); FREE KAPPA/LAMBDA RATIO 1.23 (0.26-1.65); FREE LAMBDA 17.3 MG/L (5.7-26.3)
== END | disposition home or self-care (01) ==
LOC: C.LAB1850 11:49
PROVIDERS: ATTEND Internal Medicine Hematology & Oncology
DX: C20 Malignant neoplasm of rectum (principal)

== ENCOUNTER → 2017-06-01 | Outpatient (CLI) | payer OTHER ==
[~2017-06-01] MED LIST changes: -ACET-1256 PO; -ACYC-57 PO; +ACYC1CAP8 PO; -AMIO200T4 PO; -CYAN100020 PO; -GLUC500C4 PO; -LEVO75TA5 PO; -MCRK20 PO; -METHPOW7 PO; -ONDA8TAB6 PO; -SUCR1TAB29 PO; -TPRSR/25 PO; -[UNRECOGNIZED DRUG - CODE] IV
[2017-06-01 14:47] LABS: URINE APPEARANCE TURBID (CLEAR); URINE BILIRUBIN NEG (NEG); URINE COLOR DK YELLOW; URINE EPITHELIAL CELL AUTO >30 /lpf (0-5); URINE NITRITE POS (NEG); URINE SPECIFIC GRAVITY 1.019 (1.000-1.030); UROBILINOGEN NEG (NEG); ZZUR CULT IF INDIC CLEAN CATCH YES
[2017-06-01 14:49] LABS: MANUAL MICROSCOPIC REQUIRED? NO; REVIEW REQ? YES
== END | disposition home or self-care (01) ==
LOC: C.LAB1850 13:53
PROVIDERS: ATTEND Physician Assistant
DX: N39.0 Urinary tract infection, site not specified (principal)

== ENCOUNTER → 2017-06-18 | Outpatient (CLI) | payer OTHER ==
[2017-06-18 12:34] LABS: BASO % 0.2 %; BASO ABS # 0.01 K/uL (0-0.2); COMPLETE YES; EOS % 0.4 %; HEMATOCRIT 33.5 % (37-47); IG% 0.4 %; LYMPH % 6.8 %; LYMPH ABS # 0.39 K/uL (1.2-3.4); MEAN CELL VOLUME 93.6 fL (80-100); MEAN CORPUSCULAR HEMOGLOBIN 30.4 pg (25-34); MEAN CORPUSCULAR HGB CONC 32.5 g/dl (32-36); MEAN PLATELET VOLUME 10.1 fL (7.4-10.4); MONO % 5.8 %; NEUT % 86.4 %; PLATELET COUNT 264 K/uL (130-400); RED BLOOD COUNT 3.58 M/uL (4.2-5.4)
[2017-06-18 12:35] LABS: URINE APPEARANCE CLEAR (CLEAR); URINE BILIRUBIN NEG (NEG); URINE COLOR YELLOW; URINE EPITHELIAL CELL AUTO 0-5 /lpf (0-5); URINE NITRITE NEG (NEG); URINE PH 7.5 (4.5-7.5); URINE SPECIFIC GRAVITY 1.013 (1.000-1.030); UROBILINOGEN NEG (NEG); ZZUR CULT IF INDIC CLEAN CATCH NO
[2017-06-18 12:46] LABS: MANUAL MICROSCOPIC REQUIRED? NO; REVIEW REQ? NO
[2017-06-18 12:46] LABS: ALT/SGPT 18 U/L (12-78); AST/SGOT 14 U/L (15-37); BLOOD UREA NITROGEN 11 mg/dl (7-18); BUN/CREATININE RATIO 16.5 (10-20); CALCIUM 8.2 mg/dl (8.5-10.1); CARBON DIOXIDE 24 mmol/L (21-32); CHLORIDE 104 mmol/L (98-107); CREATININE 0.67 mg/dl (0.60-1.20); GLUCOSE 103 mg/dl (70-99); POTASSIUM 3.8 mmol/L (3.5-5.1); SODIUM 135 mmol/L (136-145)
[2017-06-18 12:58] LABS: ALB/GLOB RATIO 0.9 (0.9-2); ALKALINE PHOSPHATASE 59 U/L (45-117); IMMUNOGLOBULN A 86.9 mg/dL (70-400); IMMUNOGLOBULN M 62.8 mg/dL (40-230)
--- NOTE | 2017-06-24 05:54 | CODING QUERY NO DIAGNOSIS ---
TREATMENT RENDERED WITHOUT A DIAGNOSIS Dr. Marquez, To promote full compliance with coding requirements relating to patient care, physician participation is requested in all cases of legal financial specialist uncertainty. Please assist us with providing a diagnosis/symptom for the test(s) below: A diagnosis/symptom was not documented on your Order. A valid diagnosis/symptom is required to bill all insurances. Please remember that we are unable to code a diagnosis of rule out, probable, possible, questionable, or suspected. Tests that require a diagnosis: * CBC W/AUTO DIFF DIAGNOSIS: * LDH DIAGNOSIS: * IMMUNOGLOBULIN G DIAGNOSIS: * IMMUNOGLOBULIN A DIAGNOSIS: * IMMUNOGLOBULIN M DIAGNOSIS: * [id number] DIAGNOSIS: * CEA DIAGNOSIS: * CMP DIAGNOSIS: DATE OF SERVICE: 06/18/17 Provider Signature: Date: Thank you [facility] Information Management Once completed, please kindly fax back to [phone] For questions please call [phone]
== END | disposition home or self-care (01) ==
LOC: C.LABBFT 10:06
PROVIDERS: ATTEND Internal Medicine Hematology & Oncology
DX: N39.0 Urinary tract infection, site not specified (principal); E03.9 Hypothyroidism, unspecified; C20 Malignant neoplasm of rectum; C90.00 Multiple myeloma not having achieved remission

== ENCOUNTER → 2017-06-24 | Outpatient (CLI) | payer OTHER ==
[2017-06-24 14:08] VITALS: BP 155/74; PULSE 58; TEMP 36.8; O2SAT 98
--- NOTE | 2017-06-24 16:35 | Radiation Oncology Follow-Up ---
Radiation Oncology Follow-Up Date of Visit Jun 24, 2017. 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 She received 5040 cGy. Dosage of Xeloda was adjusted due to side effect of diarrhea Last Edited By: Bhavani Woods on May 26, 2017 13:50 History of Present Illness Ms. Maciel is an 82-year-old female who presented with chronic diarrhea. Patient was receiving chemotherapy for multiple myeloma and it was initially thought that the chemotherapy was the causative factor for the recurrent diarrhea. However the chemotherapy was stopped but the diarrhea persisted. They therefore ordered a diagnostic CT scan of the abdomen and pelvis performed on 11/26/2016. This showed operative changes within the pelvis consistent with a prior bladder suspension type procedure. Sigmoid: Demonstrates a component of chronic sigmoid diverticulosis without evidence of diverticulitis. There was mild fatty infiltration of the liver. There was mild increase in fecal load within the ascending and transverse colon consistent with a component of fecal stasis. Small bowel appearance suggesting a mild neuritis. Patient had a repeat CT scan of the abdomen and pelvis without contrast on 12/08/2016 following an episode of vomiting. Again noted was mild fecal retention with no transitional zones indicating bowel obstruction. There was colonic diverticulosis but no acute peridiverticular inflammatory changes. The patient also underwent an upper GI endoscopy for hematemesis By Dr. Maier performed on 12/08/2016. This showed a normal esophagus with a small hiatus hernia. A nonbleeding gastric ulcer with visible vessel was appreciated. Patient continued to have issues with chronic diarrhea and bleeding. Therefore on 01/12/2017 the patient underwent a colonoscopy performed by Dr. Maier. This revealed a polypoid nonobstructing large mass noted in the rectum. The mass was non-circumferential and measured 5 cm in length. It measured 1 cm in thickness. No active bleeding was appreciated. Biopsies were taken. Nonbleeding internal hemorrhoids were found during retroflexion and were considered medium sized. Several randomized biopsies were taken from the colon. The pathology of the random biopsies revealed no diagnostic abnormality. The biopsies of the rectal mass revealed at least adenoma with high-grade dysplasia that was suspicious for well-differentiated invasive adenocarcinoma. Mismatch repair proteins were tested by IHC for Cm syndrome. Intact expression was noted for all 4 proteins and therefore were not consistent with microsatellite instability. Case: [id number]. Patient was subsequently seen at [facility] and evaluated by Dr. Garcia on 01/19/2017. He performed a rigid proctoscopy which demonstrated a tumor located 3 cm the anal verge in the posterior midline area that appeared friable and mobile. The tumor was approximately 2.5-3 cm in length and occupy 25% of the circumference of the rectum. He discussed 3 general options with the patient. One was to do nothing. Option 2 was to proceed with standard of care. He felt this would include an MRI for staging, CAT scan of the chest abdomen and pelvis, CEA level. He then suggested that we would recommend chemoradiation followed by an AP resection followed by additional chemotherapy. His third option was based on the fact that patient is partially dependent on additional support and would not likely be [facility] dependent and would need to go to a fci which she would like to avoid. He therefore suggested consideration of a transanal minimally invasive excision of the tumor to obtain full diagnosis and depth of invasion. If this was early stage disease surveillance could be followed. If there was locally advanced disease she would then be a candidate for chemoradiation as sole treatment followed by observation. After much discussion the patient opted to proceed with option 3. On 01/20/[address] scan of the chest without IV contrast was performed. This showed no evidence of pathologic adenopathy. 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 There were nonspecific tiny pulmonary nodules the largest of which measured 3 mm and was located within the left lower lobe. 3-6 month follow-up was recommended. They reviewed the CT scan from November 26 and felt this demonstrated a lower to mid-rectal circumferential mass spanning a length of at least 5.5 cm within the inferior margin extending to the level of the levator ani muscles. On 02/15/2017 patient underwent a transanal excision of a large polypoid rectal tumor. This confirmed a low-grade, well-differentiated to moderately differentiated adenocarcinoma. The tumor measured 6.5 x 5.3 x 3.9 cm. The tumor invaded the muscularis propria the deep margin was involved by invasive carcinoma. There was suspicion for lymphovascular invasion. No entire intestinal/rectal wall was present for the tumor was felt to be at least a pathologic stage T2 p Nx. Accession #: [id number]. The patient did develop some complaint of abdominal pain postoperatively and on 02/17/2017 underwent an abdominal and pelvic CT scan without contrast. There was complex free fluid within the pelvic cul-de-sac versus the less likely possibility of a low- density mass. There was possibility of hemorrhagic fluid within the pelvic cul- de-sac. There are otherwise no acute processes noted in the abdomen or pelvis. Postoperative changes were noted including bladder suspension procedure and inferior vena caval stent placement which were both stable. There was a nonobstructive bowel pattern appreciated. Patient return to discuss these findings with Dr. Garcia on 03/02/2017. He again discussed 3 options with the patient. Option one was 2 proceed with no further interventions with the significant likelihood of local recurrence given the positive deep margin. Option to would be to undergo chemoradiation in order to achieve local control and allowing her to have the best quality of life for the remainder of her survival. Option 3 would be to undergo chemotherapy only. The patient who has been under the care of Dr. Marquez for her multiple myeloma also saw him for discussion of treatment options for her recently diagnosed anal cancer. She saw him on 03/08/2017. He discussed with her the possibility of chemoradiation. He reviewed the chemotherapy option consisting of a single agent, Xeloda, with a lower dose given twice a day. Based on tolerance the dose would be adjusted accordingly. He also suggested receiving chemotherapy only on the days that she receives her radiation that is Wednesday through Wednesday. He reviewed with her the potential risks and side effects. In the patient agreed. We will therefore asked to see her in referral. It is for this reason the patient was seen today. Status post completion of combined radiation and chemotherapy. Radiation completed 05/17/2017. She received 5040 cGy. Interim History She has had slow recuperation of the past month. Her energy levels continue to be low. She no longer has difficulty with diarrhea. She denies abdominal pain. Her appetite is decreased. She is trying to eat frequent smaller meals. She saw 06/22/2017. She underwent a rigid proctoscopy. This showed a small scar with no signs of active malignancy. She is been seen in follow-up by medical oncology. Laboratory studies are going to be performed monthly and include a CEA titer. Allergies Coded Allergies: Aspartame (Verified Allergy, Mild, HEADACHES, N/V, 02/17/17) Shellfish (Verified Allergy, Mild, HEADACHE AND N/V, 02/17/17) Ciprofloxacin (Verified Allergy, Unknown, ELEVATED BLOOD PRESSURE, 02/17/17 ) Iodinated Diagnostic Agents (Verified Allergy, Unknown, R/T SHELLFISH ALLERGY, 02/17/17) Nitrofurantoin (Verified Allergy, Unknown, GI UPSET AND ABDOMINAL PAIN/ SWELLING, 02/17/17) Quinolones (Verified Allergy, Unknown, CIPRO - ELEVATED BLOOD PRESSURE, ) Sulfa Antibiotics (Verified Allergy, Unknown, UNKNOWN - PT STATES DOES NOT REMEMBER, 02/17/17) Home Medications Scheduled Acyclovir (Zovirax), 400 MG PO DAILY Amiodarone Hcl (Amiodarone Hcl), 100 MG PO Q2D Amiodarone Hcl (Amiodarone Hcl), 200 MG PO Q2D Cholecalciferol (Vitamin D3), 1 TAB PO DAILY Cinacalcet (Sensipar), 30 MG PO QAM Ferrous Sulfate (Iron), 1 TAB PO DAILY Glucosamine-Chondroitin (Cosamin Ds), 1 TAB PO DAILY Levothyroxine Sodium (Synthroid), 75 MCG PO QAM Metoprolol Succinate (Toprol Xl), 25 MG PO QAM Pantoprazole (Protonix), 40 MG PO BID Potassium Ext Rel (Klor-Con), 20 MEQ PO DAILY Pravastatin (Pravachol ), 20 MG PO MWF Prednisone (Prednisone), 5 MG PO QAM Zoledronic Acid (Zometa), 1 DOSE IV [id number] Scheduled PRN Sucralfate (Sucralfate), 1 GM PO QID PRN for stomach issues Review of Systems Gastrointestinal: Symptoms: WNL, Constipation GI Comments: Constipation from dehydration Oral: Symptoms: No Problems Respiratory: Symptoms: WNL Urinary: Symptoms: WNL Comments: Just finished being treated for UTI Skin: Symptoms: No Problems Physical Exam Vital Signs Date Time Temp Pulse Resp B/P (MAP) Pulse Ox O2 Delivery O2 Flow Rate FiO2 06/24/17 14:08 36.8 58 20 155/74 98 Fatigue: Mild General Appearance: no apparent distress Eyes: normal inspection, EOMI ENT: normal ENT inspection, hearing grossly normal Neck: no adenopathy, thyroid normal Respiratory/Chest: lungs clear, no respiratory distress, no accessory muscle use Cardiovascular: regular rate, rhythm, no gallop, no murmur Abdomen: non tender, soft Extremities: no pedal edema Neurologic/Psychiatric: no motor/sensory deficits, alert, normal mood/affect Skin: warm/dry Laboratory Studies Test 04/21/17 11:10 04/23/17 11:55 04/28/17 11:34 05/05/17 10:55 Ovalocytes 1+ Carcinoembryonic Antigen 3.5 ng/ml (0-2.5) Immunoglobulin G 1050.0 mg/dL (700-1600) Immunoglobulin A 70.2 mg/dL (70-400) Immunoglobulin M 47.9 mg/dL (40-230) Free [place] Light Chains, Quant 21.3 MG/L (3.3-19.4) Free Lambda Light Chains, Quant 17.3 MG/L (5.7-26.3) Free [place]/Lambda Light Chain Ratio 1.23 (0.26-1.65) Poikilocytosis PRESENT Anisocytosis PRESENT Nucleated RBC Absolute Count (auto) 0.00 K/uL (0-0) Nucleated Red Blood Cells % 0.0 % Est Creatinine Clear Calc Drug Dose 49.5 ml/min Test 05/12/17 10:41 06/01/17 13:57 06/18/17 10:11 06/18/17 10:15 White Blood Count 8.96 K/uL (4.8-10.8) 5.70 K/uL (4.8-10.8) Red Blood Count 3.84 M/uL (4.2-5.4) 3.58 M/uL (4.2-5.4) Hemoglobin 11.2 g/dL (12.0-16.0) 10.9 g/dL (12.0-16.0) Hematocrit 35.2 % (37-47) 33.5 % (37-47) Mean Corpuscular Volume 91.7 fL (80-100) 93.6 fL (80-100) Mean Corpuscular Hemoglobin 29.2 pg (25-34) 30.4 pg (25-34) Mean Corpuscular Hemoglobin Concent 31.8 g/dl (32-36) 32.5 g/dl (32-36) Platelet Count 197 K/uL (130-400) 264 K/uL (130-400) Mean Platelet Volume 9.3 fL (7.4-10.4) 10.1 fL (7.4-10.4) Neutrophils (%) (Auto) 87.1 % 86.4 % Lymphocytes (%) (Auto) 5.1 % 6.8 % Monocytes (%) (Auto) 4.8 % 5.8 % Eosinophils (%) (Auto) 2.0 % 0.4 % Basophils (%) (Auto) 0.2 % 0.2 % Neutrophils # (Auto) 7.80 K/uL (1.4-6.5) 4.93 K/uL (1.4-6.5) Lymphocytes # (Auto) 0.46 K/uL (1.2-3.4) 0.39 K/uL (1.2-3.4) Monocytes # (Auto) 0.43 K/uL (0.11-0.59) 0.33 K/uL (0.11-0.59) Eosinophils # (Auto) 0.18 K/uL (0-0.5) 0.02 K/uL (0-0.5) Basophils # (Auto) 0.02 K/uL (0-0.2) 0.01 K/uL (0-0.2) RDW Standard Deviation 78.9 fL (36.4-46.3) 65.3 fL (36.4-46.3) RDW Coefficient of Variation 24.1 % (11.5-14.5) 18.8 % (11.5-14.5) Immature Granulocyte % (Auto) 0.8 % 0.4 % Immature Granulocyte # (Auto) 0.07 K/uL (0.00-0.02) 0.02 K/uL (0.00-0.02) Anisocytosis PRESENT Sodium Level 134 mmol/L (136-145) 135 mmol/L (136-145) Potassium Level 3.8 mmol/L (3.5-5.1) 3.8 mmol/L (3.5-5.1) Chloride Level 100 mmol/L (98-107) 104 mmol/L (98-107) Carbon Dioxide Level 24 mmol/L (21-32) 24 mmol/L (21-32) Anion Gap 10.0 mmol/L (3-11) 7.0 mmol/L (3-11) Blood Urea Nitrogen 9 mg/dl (7-18) 11 mg/dl (7-18) Creatinine 0.73 mg/dl (0.60-1.20) 0.67 mg/dl (0.60-1.20) Est Creatinine Clear Calc Drug Dose 47.4 ml/min Estimated GFR () 87.7 93.6 Estimated GFR (Non- 75.6 80.7 BUN/Creatinine Ratio 12.7 (10-20) 16.5 (10-20) Random Glucose 107 mg/dl (70-99) 103 mg/dl (70-99) Calcium Level 7.8 mg/dl (8.5-10.1) 8.2 mg/dl (8.5-10.1) Total Bilirubin 0.3 mg/dl (0.2-1) 0.5 mg/dl (0.2-1) Aspartate Amino Transferase (AST) 14 U/L (15-37) 14 U/L (15-37) Alanine Aminotransferase (ALT) 16 U/L (12-78) 18 U/L (12-78) Alkaline Phosphatase 57 U/L (45-117) 59 U/L (45-117) Total Protein 6.4 gm/dl (6.4-8.2) 6.4 gm/dl (6.4-8.2) Albumin 3.1 gm/dl (3.4-5.0) 3.1 gm/dl (3.4-5.0) Globulin 3.3 gm/dl (2.5-4.0) 3.3 gm/dl (2.5-4.0) Albumin/Globulin Ratio 0.9 (0.9-2) 0.9 (0.9-2) Thyroid Stimulating Hormone (TSH) 1.780 uIu/ml (0.300-4.500) 1.470 uIu/ml (0.300-4.500) Urine Color DK YELLOW YELLOW Urine Appearance TURBID (CLEAR) CLEAR (CLEAR) Urine pH 6.0 (4.5-7.5) 7.5 (4.5-7.5) Urine Specific [place] 1.019 (1.000-1.030) 1.013 (1.000-1.030) Urine Protein 2+ (NEG) NEG (NEG) Urine Glucose (UA) NEG (NEG) NEG (NEG) Urine Ketones NEG (NEG) NEG (NEG) Urine Occult Blood 2+ (NEG) NEG (NEG) Urine Nitrite POS (NEG) NEG (NEG) Urine Bilirubin NEG (NEG) NEG (NEG) Urine Urobilinogen NEG (NEG) NEG (NEG) Urine Leukocyte Esterase LARGE (NEG) TRACE (NEG) Urine WBC (Auto) >30 /hpf (0-5) 0 /hpf (0-5) Urine RBC (Auto) 10-30 /hpf (0-4) 0-4 /hpf (0-4) Urine Hyaline Casts (Auto) 1-5 /lpf (0-5) 0 /lpf (0-5) Urine Epithelial Cells (Auto) >30 /lpf (0-5) 0-5 /lpf (0-5) Urine Bacteria (Auto) 4+ (NEG) NEG (NEG) Urine Pathogenic Casts /lpf (0) Urine Yeast (Auto) (NONE PRSENT) Lactate Dehydrogenase 200 U/L (84-246) [id number] 2.86 MG/L (0.00-2.51) Carcinoembryonic Antigen 1.4 ng/ml (0-2.5) Immunoglobulin G 1080.0 mg/dL (700-1600) Immunoglobulin A 86.9 mg/dL (70-400) Immunoglobulin M 62.8 mg/dL (40-230) Test 06/18/17 10:30 Miscellaneous Test REPORT Assessment & Plan Plan: Continue regular follow-up with medical oncology and the colorectal surgeon. Scheduled follow-up with them has been set forth. Colorectal surgeon has recommended an MRI of the pelvis as well as CT scans of the chest abdomen and pelvis following her next visit. She'll be having another rigid proctoscopy in 4 months. Laboratory studies have been delineated by medical oncology. Today we completed a cancer survivorship care plan. A copy of the document was given to the patient. We asked her return to our office in 6 months. She may call if she has any questions or concerns in the interim. Total Time In Follow-Up I spent 20 minutes speaking to the patient and performing examination. I spent 20 minutes reviewing information, preparing the survivorship document, and completing this note. Copy To Charles Marquez D.O.; Edgar Wiley M.D.; Alexandr Garcia M.D.; Hussain Woody M.D.
== END | disposition home or self-care (01) ==
LOC: C.ONC 14:04
PROVIDERS: ATTEND Physician Assistant Medical
DX: Z08 Encounter for follow-up examination after completed treatment for malignant neoplasm (principal); Z92.3 Personal history of irradiation; Z85.048 Personal history of other malignant neoplasm of rectum, rectosigmoid junction, and anus

== ENCOUNTER → 2017-07-19 | Outpatient (CLI) | payer OTHER ==
[~2017-07-19] MED LIST changes: -XLD/500 PO
[2017-07-19 12:29] LABS: ALT/SGPT 13 U/L (12-78); AST/SGOT 10 U/L (15-37); BLOOD UREA NITROGEN 12 mg/dl (7-18); BUN/CREATININE RATIO 16.3 (10-20); CALCIUM 8.4 mg/dl (8.5-10.1); CARBON DIOXIDE 25 mmol/L (21-32); CHLORIDE 102 mmol/L (98-107); CREATININE 0.73 mg/dl (0.60-1.20); GLUCOSE 118 mg/dl (70-99); POTASSIUM 3.8 mmol/L (3.5-5.1); SODIUM 135 mmol/L (136-145)
[2017-07-19 12:31] LABS: ALKALINE PHOSPHATASE 53 U/L (45-117); IMMUNOGLOBULN A 87.7 mg/dL (70-400)
[2017-07-19 12:35] LABS: BASO % 0.2 %; BASO ABS # 0.01 K/uL (0-0.2); COMPLETE YES; EOS % 0.4 %; HEMATOCRIT 35.1 % (37-47); IG% 0.4 %; LYMPH % 7.2 %; LYMPH ABS # 0.33 K/uL (1.2-3.4); MEAN CELL VOLUME 95.4 fL (80-100); MEAN CORPUSCULAR HEMOGLOBIN 31.8 pg (25-34); MEAN CORPUSCULAR HGB CONC 33.3 g/dl (32-36); MEAN PLATELET VOLUME 10.8 fL (7.4-10.4); MONO % 4.8 %; PLATELET COUNT 225 K/uL (130-400); RED BLOOD COUNT 3.68 M/uL (4.2-5.4); WHITE BLOOD COUNT 4.61 K/uL (4.8-10.8)
[2017-07-20 11:42] LABS: FREE KAPPA 21.1 MG/L (3.3-19.4); FREE KAPPA/LAMBDA RATIO 1.29 (0.26-1.65); FREE LAMBDA 16.4 MG/L (5.7-26.3)
--- NOTE | 2017-07-27 14:18 | CODING QUERY MEDICAL NECESSITY ---
CQSUPPORTING DIAGNOSIS NEEDED A supporting diagnosis is required for the test/procedure performed on this patient in order for us to be reimbursed by the patient's insurance. Please provide a supporting diagnosis for the following test/procedure listed below next to the test name along with your signature. *If there is no additional diagnosis for this patient that would support the following test/procedure please document that below next to the test/procedure. Test(s)/Procedure(s) that require a supporting diagnosis: DOS 07/19/17 VITAMIN B12 TEST QUERY WAS RETURNED WITH SIGNATURE BUT NO DIAGNOSIS PLEASE ADD DIAGNOSIS AND SIGNATURE THANK YOU Provider Signature: Date: Thank you Britt Townsend Health Information Management Once completed, please kindly fax back to [phone] For questions please call [phone]
== END | disposition home or self-care (01) ==
LOC: C.LABBFT 11:00
PROVIDERS: ATTEND Internal Medicine Hematology & Oncology
DX: C90.00 Multiple myeloma not having achieved remission (principal); C20 Malignant neoplasm of rectum

== ENCOUNTER → 2017-08-13 | Outpatient (CLI) | payer OTHER ==
[2017-08-13 12:23] LABS: BASO % 0.2 %; BASO ABS # 0.02 K/uL (0-0.2); COMPLETE YES; EOS % 0.1 %; HEMATOCRIT 34.3 % (37-47); IG% 0.2 %; LYMPH % 5.2 %; LYMPH ABS # 0.47 K/uL (1.2-3.4); MEAN CELL VOLUME 93.7 fL (80-100); MEAN CORPUSCULAR HEMOGLOBIN 31.4 pg (25-34); MEAN CORPUSCULAR HGB CONC 33.5 g/dl (32-36); MEAN PLATELET VOLUME 10.8 fL (7.4-10.4); MONO % 5.6 %; NEUT % 88.7 %; PLATELET COUNT 189 K/uL (130-400); RED BLOOD COUNT 3.66 M/uL (4.2-5.4); WHITE BLOOD COUNT 9.08 K/uL (4.8-10.8)
[2017-08-13 12:49] LABS: ALT/SGPT 12 U/L (12-78); AST/SGOT 10 U/L (15-37); BLOOD UREA NITROGEN 12 mg/dl (7-18); BUN/CREATININE RATIO 20.7 (10-20); CARBON DIOXIDE 23 mmol/L (21-32); CHLORIDE 104 mmol/L (98-107); CREATININE 0.56 mg/dl (0.60-1.20); GLUCOSE 91 mg/dl (70-99); SODIUM 136 mmol/L (136-145)
[2017-08-13 13:03] LABS: ALB/GLOB RATIO 1.1 (0.9-2); ALKALINE PHOSPHATASE 50 U/L (45-117); IMMUNOGLOBULN A 83.4 mg/dL (70-400); IMMUNOGLOBULN M 44.3 mg/dL (40-230)
[2017-08-16 10:56] LABS: FREE KAPPA 19.8 MG/L (3.3-19.4); FREE KAPPA/LAMBDA RATIO 1.19 (0.26-1.65); FREE LAMBDA 16.7 MG/L (5.7-26.3)
== END | disposition home or self-care (01) ==
LOC: C.LABBFT 11:02
PROVIDERS: ATTEND Internal Medicine Hematology & Oncology
DX: C20 Malignant neoplasm of rectum (principal)

== ENCOUNTER 2017-08-25 15:50 | Inpatient (IN) | payer OTHER ==
[~2017-08-25] VITALS: Ht 160 cm; Wt 58.2 kg
[~2017-08-25 15:50] MED LIST changes: -ACET-1311 PO; -CEFU250T15 PO; -FERR325T18 PO; -LORA-741 PO; -METHPOW7; -MRLP17X PO; -ONDA4TAB46 PO
[2017-08-25] MEDS ORDERED: ONDA4TAB46 PO (17:41)
[2017-08-25] MEDS ORDERED: LORA-741 PO (17:41)
[2017-08-25] MEDS ORDERED: ACET-1311 PO (17:41)
[2017-08-25] MEDS ORDERED: METHPOW7 (17:41)
[2017-08-25] MEDS ORDERED: PANTOprazole INJ 80 MG in DEXTROSE 5% 100ML IV SCH (18:00)
[2017-08-25] MEDS ORDERED: PANTOprazole INJ 40 MG in DEXTROSE 5% 100ML IV SCH (18:15)
[2017-08-25 18:22] LABS: BASO % 0.4 %; BASO ABS # 0.02 K/uL (0-0.2); EOS % 0.4 %; HEMATOCRIT 26.6 % (37-47); IG% 0.2 %; LYMPH % 14.6 %; LYMPH ABS # 0.76 K/uL (1.2-3.4); MEAN CELL VOLUME 94.7 fL (80-100); MEAN CORPUSCULAR HGB CONC 32.7 g/dl (32-36); MEAN PLATELET VOLUME 10.3 fL (7.4-10.4); MONO % 9.4 %; PLATELET COUNT 223 K/uL (130-400); RED BLOOD COUNT 2.81 M/uL (4.2-5.4); WHITE BLOOD COUNT 5.19 K/uL (4.8-10.8)
[2017-08-25 18:32] LABS: PARTIAL THROMBOPLASTIN RATIO 0.9; PROTHROMBIN TIME (PATIENT) 10.3 SECONDS (9.0-12.0)
--- NOTE | 2017-08-25 18:41 | DIAGNOSTIC IMAGING REPORT ---
CHEST ONE VIEW PORTABLE HISTORY: 82 years-old Female EVALUATE GI BLEED acute GI bleed. COMPARISON: Chest radiograph 02/17/2017 TECHNIQUE: Portable upright AP view of the chest FINDINGS: Cardiac silhouette is within normal limits. There is atherosclerosis of the aorta. Prior median sternotomy. Lungs are hyperinflated without pneumothorax or pleural effusion. Linear subsegmental bibasilar opacities suggest atelectasis and/or scarring. Bones appear grossly intact and are mildly demineralized. IMPRESSION: Minimal bibasilar atelectasis or scarring without acute cardiopulmonary process. The above report was generated using voice recognition software. It may contain grammatical, syntax or spelling errors. Electronically signed by: Herber Lee M.D. 08/25/2017 6:40 PM Dictated Date/Time: 08/25/2017 6:39 PM
[2017-08-25 18:46] LABS: ALT/SGPT 16 U/L (12-78); BLOOD UREA NITROGEN 12 mg/dl (7-18); BUN/CREATININE RATIO 18.9 (10-20); CALCIUM 8.1 mg/dl (8.5-10.1); CARBON DIOXIDE 22 mmol/L (21-32); CHLORIDE 107 mmol/L (98-107); CREATININE 0.63 mg/dl (0.60-1.20); GLUCOSE 84 mg/dl (70-99); POTASSIUM 4.3 mmol/L (3.5-5.1); SODIUM 138 mmol/L (136-145)
[2017-08-25 18:51] LABS: ALKALINE PHOSPHATASE 45 U/L (45-117); AST/SGOT 12 U/L (15-37); CKMB/CK RATIO 2.9 (0-3.0)
--- NOTE | 2017-08-25 19:00 | EMERGENCY ROOM VISIT NOTE ---
History Report prepared by Ambrosio: Maxime Yost Under the Supervision of: Dr. Doyle Luis D.O. First contact with patient: 17:15 Chief Complaint: RECTAL BLEEDING Stated Complaint: POSSIBLE GI BLEED, IRON LEVEL IS AT 8 Nursing Triage Summary: Patient presents with sons with c/o abdominal cramping, nausea, and black tarry stools Patient reports a history of GI bleeding She resides in a personal [place] [facility] facility and reports Hgb has dropped from aproximately 11 to 8 in 11 days History of Present Illness The patient is an 82 year old female who presents to the Emergency Room with complaints of persistent rectal bleeding that started 4 days ago. She says that the black tarry stools were "huge" during the first 2 days, and over the past 2 days, they are smaller but are still very black and tarry. The patient notes that she has a history of 3 GI bleeds, and they usually come from her stomach. Per the patient's sons, the patient's hemoglobin has dropped from 11.1 to 8.2 over the past 12 days. The patient also complains of abdominal cramping and nausea. Source of History: patient, family Onset: 4 days ago Position: other (global - rectal bleeding) Quality: other (black tarry stools) Timing: other (persistent) Associated Symptoms: + nausea, + abdominal pain Note: Associated symptoms: Hemoglobin drop from 11.1 to 8.2 over past 12 days. Review of Systems See HPI for pertinent positives & negatives. A total of 10 systems reviewed and were otherwise negative. Past Medical & Surgical Medical Problems: (1) Adenocarcinoma of rectum (2) Anemia (3) Atrial fibrillation with RVR (4) Coronary artery disease (5) Electrolyte abnormality (6) Hematemesis, weakness (7) History of hypertension (8) Hyperparathyroidism (9) Hypertension (10) Hypothyroid (11) Multiple myeloma Surgical Problems: (1) History of rectal tumor resection (2) S/P CABG (coronary artery bypass graft) (3) S/P hysterectomy Family History Diabetes Hypertension Social History Smoking Status: Never Smoker Alcohol Use: none Drug Use: none Housing Status: lives with significant other Occupation Status: retired Current/Historical Medications Scheduled Amiodarone Hcl (Amiodarone Hcl), 100 MG PO Q2D Amiodarone Hcl (Amiodarone Hcl), 200 MG PO Q2D Cholecalciferol (Vitamin D3), 1 TAB PO DAILY Cinacalcet (Sensipar), 30 MG PO QAM Ferrous Sulfate (Iron), 1 TAB PO DAILY Glucosamine-Chondroitin (Cosamin Ds), 1 TAB PO DAILY Levothyroxine Sodium (Synthroid), 75 MCG PO QAM Lorazepam (Ativan), 0.5 MG PO Q6H Metoprolol Succinate (Toprol Xl), 25 MG PO QAM Pantoprazole (Protonix), 40 MG PO BID Potassium Ext Rel (Klor-Con), 20 MEQ PO DAILY Pravastatin (Pravachol ), 20 MG PO MWF Prednisone (Prednisone), 5 MG PO QAM Zoledronic Acid (Zometa), 1 DOSE IV [id number] Scheduled PRN Ondansetron Hcl (Zofran), 4 MG PO for Nausea Sucralfate (Sucralfate), 1 GM PO QID PRN for stomach issues Miscellaneous Medications Acetaminophen (Tylenol), 325 MG PO Methylcellulose (Laxative) (Citrucel Fiber Laxative) Allergies Coded Allergies: Aspartame (Verified Allergy, Mild, HEADACHES, N/V, 08/25/17) Shellfish (Verified Allergy, Mild, HEADACHE AND N/V, 08/25/17) Ciprofloxacin (Verified Allergy, Unknown, ELEVATED BLOOD PRESSURE, 08/25/17 ) Iodinated Diagnostic Agents (Verified Allergy, Unknown, R/T SHELLFISH ALLERGY, 08/25/17) Nitrofurantoin (Verified Allergy, Unknown, GI UPSET AND ABDOMINAL PAIN/ SWELLING, 08/25/17) Quinolones (Verified Allergy, Unknown, CIPRO - ELEVATED BLOOD PRESSURE, ) Sulfa Antibiotics (Verified Allergy, Unknown, UNKNOWN - PT STATES DOES NOT REMEMBER, 08/25/17) Physical Exam Vital Signs Date Time Temp Pulse Resp B/P (MAP) Pulse Ox O2 Delivery O2 Flow Rate FiO2 08/25/17 18:11 63 19 157/70 98 08/25/17 18:05 66 21 08/25/17 17:50 63 20 08/25/17 17:35 65 21 173/69 100 Room Air 08/25/17 17:35 65 22 100 08/25/17 17:34 173/69 08/25/17 17:25 66 08/25/17 16:10 37.1 65 20 155/66 100 Room Air Physical Exam CONSTITUTIONAL/VITAL SIGNS: Reviewed / noted above. GENERAL: Non-toxic in appearance. INTEGUMENTARY: Warm, dry, and [place]. HEAD: Normocephalic. EYES: without scleral icterus or trauma. ENT/OROPHARYNX: clear and moist. LYMPHADENOPATHY/NECK: Is supple without lymphadenopathy or meningismus. RESPIRATORY: Lungs clear and equal. CARDIOVASCULAR: Regular rate and rhythm. GI/ABDOMEN: Soft and nontender. No organomegaly or pulsatile mass. No rebound or guarding. Normal bowel sounds. RECTAL: Stool is black, Guaiac positive. EXTREMITIES: Warm and well perfused. BACK: No CVA tenderness. NEUROLOGICAL: Intact without focal deficits. PSYCHIATRIC: normal affect. MUSCULOSKELETAL: Normally developed with good muscle tone. Medical Decision & Procedures ER Provider Diagnostic Interpretation: X ray results and stated below per my interpretation and radiology interpretation. CHEST ONE VIEW PORTABLE HISTORY: 82 years-old Female EVALUATE GI BLEED acute GI bleed. COMPARISON: Chest radiograph 02/17/2017 TECHNIQUE: Portable upright AP view of the chest FINDINGS: Cardiac silhouette is within normal limits. There is atherosclerosis of the aorta. Prior median sternotomy. Lungs are hyperinflated without pneumothorax or pleural effusion. Linear subsegmental bibasilar opacities suggest atelectasis and/or scarring. Bones appear grossly intact and are mildly demineralized. IMPRESSION: Minimal bibasilar atelectasis or scarring without acute cardiopulmonary process. The above report was generated using voice recognition software. It may contain grammatical, syntax or spelling errors. Electronically signed by: Herber Lee M.D. 08/25/2017 6:40 PM Dictated Date/Time: 08/25/2017 6:39 PM Laboratory Results 08/25/17 18:07 Red Blood Count 2.81, Mean Corpuscular Volume 94.7, Mean Corpuscular Hemoglobin 31.0, Mean Corpuscular Hemoglobin Concent 32.7, Mean Platelet Volume 10.3, Neutrophils (%) (Auto) 75.0, Lymphocytes (%) (Auto) 14.6, Monocytes (%) (Auto) 9.4, Eosinophils (%) (Auto) 0.4, Basophils (%) (Auto) 0.4, Neutrophils # (Auto) 3.89, Lymphocytes # (Auto) 0.76, Monocytes # (Auto) 0.49, Eosinophils # (Auto) 0.02, Basophils # (Auto) 0.02 08/25/17 18:07 Test 08/25/17 18:07 White Blood Count 5.19 K/uL (4.8-10.8) Red Blood Count 2.81 M/uL (4.2-5.4) Hemoglobin 8.7 g/dL (12.0-16.0) Hematocrit 26.6 % (37-47) Mean Corpuscular Volume 94.7 fL (80-100) Mean Corpuscular Hemoglobin 31.0 pg (25-34) Mean Corpuscular Hemoglobin Concent 32.7 g/dl (32-36) Platelet Count 223 K/uL (130-400) Mean Platelet Volume 10.3 fL (7.4-10.4) Neutrophils (%) (Auto) 75.0 % Lymphocytes (%) (Auto) 14.6 % Monocytes (%) (Auto) 9.4 % Eosinophils (%) (Auto) 0.4 % Basophils (%) (Auto) 0.4 % Neutrophils # (Auto) 3.89 K/uL (1.4-6.5) Lymphocytes # (Auto) 0.76 K/uL (1.2-3.4) Monocytes # (Auto) 0.49 K/uL (0.11-0.59) Eosinophils # (Auto) 0.02 K/uL (0-0.5) Basophils # (Auto) 0.02 K/uL (0-0.2) RDW Standard Deviation 52.6 fL (36.4-46.3) RDW Coefficient of Variation 15.3 % (11.5-14.5) Immature Granulocyte % (Auto) 0.2 % Immature Granulocyte # (Auto) 0.01 K/uL (0.00-0.02) Prothrombin Time 10.3 SECONDS (9.0-12.0) Prothromb Time International Ratio 1.0 (0.9-1.1) Activated Partial Thromboplast Time 22.5 SECONDS (21.0-31.0) Partial Thromboplastin Ratio 0.9 Anion Gap 9.0 mmol/L (3-11) Est Creatinine Clear Calc Drug Dose 55.0 ml/min Estimated GFR () 95.5 Estimated GFR (Non- 82.4 BUN/Creatinine Ratio 18.9 (10-20) Calcium Level 8.1 mg/dl (8.5-10.1) Total Bilirubin 0.4 mg/dl (0.2-1) Direct Bilirubin < 0.1 mg/dl (0-0.2) Aspartate Amino Transf (AST/SGOT) 12 U/L (15-37) Alanine Aminotransferase (ALT/SGPT) 16 U/L (12-78) Alkaline Phosphatase 45 U/L (45-117) Total Creatine Kinase 45 U/L (26-192) Creatine Kinase MB 1.3 ng/ml (0.5-3.6) Creatine Kinase MB Ratio 2.9 (0-3.0) Troponin I < 0.015 ng/ml (0-0.045) Total Protein 6.4 gm/dl (6.4-8.2) Albumin 3.5 gm/dl (3.4-5.0) Laboratory results as stated above per my review. Medications Administered Medications (Trade) Dose Ordered Sig/Timo Route Start Time Stop Time Status Last Admin Dose Admin Pantoprazole Sodium (Protonix IV Bolus/Drip) 1 ea NOW STAT IV 08/25/17 17:32 08/25/17 17:36 DC 08/25/17 17:32 1 EA Pantoprazole Sodium 80 mg/ Dextrose 120 ml @ 480 mls/hr 1800 IV 08/25/17 18:00 08/25/17 18:14 DC 08/25/17 18:14 480 MLS/HR Pantoprazole Sodium 40 mg/ Dextrose 100 ml @ 20 mls/hr Q5H IV 08/25/17 18:15 09/24/17 18:14 08/25/17 18:14 20 MLS/HR ECG Indication: nausea Rate (beats per minute): 61 Rhythm: normal sinus Findings: no ectopy, other (no acute injury) ED Course 1726: Previous medical records were reviewed. The patient was evaluated in room C7. A complete history and physical examination was performed. The patient verbally expressed understanding and agreement of the treatment plan. The patient will be evaluated for further treatment. 1732: Ordered Protonix IV Bolus/Drip 1 ea IV. 1800: Ordered Pantoprazole Sodium 80 mg/Dextrose 120 ml @ 480 mls/hr IV. 1810: I discussed the patient with [place] [facility] [place] - he will evaluate the patient for further treatment. 1814: Ordered Pantoprazole Sodium 40 mg/Dextrose 100 ml @ 20 mls/hr IV. Medical Decision Differential diagnosis: Etiologies such as diverticulosis, AVM, coagulopathy, colitis, inflammatory bowel disease, malignancy, Lakesha-Saez tear, esophagitis, peptic ulcer disease , variceal bleed, gastritis, epistaxis, fissure, hemorrhoids, as well as others were entertained. This is a 82-year-old female who presents to the ED with a chief complaint of anemia and black tarry stools. The patient states that she has had black tarry stools over the past several days. She reports a history of gastric ulcer bleeding in the past and has been seen by Dr. Maier for this . The patient has some outpatient blood work earlier today that revealed a hemoglobin of 8.1. Her hemoglobin here today is 8.7. Her stool is black and guaiac positive. Her normal hemoglobin is around 11.5 based on blood work done 2 weeks ago. I spoke with the hospice, who will see the patient for further inpatient evaluation and care. Patient was given IV Protonix bolus and drip. Medication Reconcilliation Current Medication List: was personally reviewed by me Blood Pressure Screening Patient's blood pressure: Elevated blood pressure Blood pressure disposition: Elevated BP felt to be situational Consults Time Called: 1799 Consulting Physician: Dr. Shayan TORRES console attendant Returned Call: 1809 (in person) I discussed the patient with Dr. Shayan TORRES console attendant - he will evaluate the patient for further treatment. Impression Primary Impression: GI bleed Scribe Attestation The scribe's documentation has been prepared under my direction and personally reviewed by me in its entirety. I confirm that the note above accurately reflects all work, treatment, procedures, and medical decision making performed by me. Departure Information Dispostion Being Evaluated By Hospitalist Referrals Hussain Woody M.D. (PCP) Patient Instructions My [facility]
[2017-08-25 19:38] LABS: COMPLETE YES; SCHISTOCYTES OCCASIONAL
[2017-08-25] MEDS ORDERED: ALUMINUM/MAGNESIUM/SIMETH (MAALOX MAX) 30 ML UDC PO PRN (19:45)
[2017-08-25] MEDS ORDERED: ONDANSETRON INJ 2 MG/ML 2 ML VIAL IV PRN (19:45)
[2017-08-25] MEDS ORDERED: POLYETHYLENE (MIRALAX) 17 GM PACK PO PRN (19:45)
[2017-08-25] MEDS ORDERED: SUCRALFATE 1 GM TAB PO PRN (19:45)
[2017-08-25] MEDS ORDERED: ACETAMINOPHEN 325 MG TAB PO PRN (19:45)
[2017-08-25] MEDS ORDERED: MAGNESIUM HYDROXIDE SUSP 30 ML UDC PO PRN (19:45)
[2017-08-25] MEDS ORDERED: ZOLEDRONIC ACID IV SCH (19:45)
[2017-08-25 19:50] VITALS: Ht 160 cm; Wt 58.2 kg
[2017-08-25] MEDS ORDERED: LORAZEPAM 0.5 MG TAB PO ONE (21:30)
[2017-08-25] MEDS: NSS + 20MEQ KCL 1000ML 1,000 ML IV SCH (21:41)
[2017-08-25] MEDS: PRAVASTATIN SOD 20 MG TAB PO SCH (21:41)
[2017-08-25] MEDS: HYDROCORTISONE IV 50 MG in SYRINGE 0 ML IV SCH (21:42)
[2017-08-25] MEDS ORDERED: INFLUENZA VACCINE HIGH DOSE 65+ 0.5 ML SYR IM. ONE (21:45)
[2017-08-25] MEDS ORDERED: INFLUENZA ADMINISTRATION CHARGE ONE (21:45)
--- NOTE | 2017-08-25 21:45 | History and Physical ---
History & Physical Date & Time of Service: Aug 25, 2017 at 21:39 Chief Complaint: Gi Bleed Primary Care Physician: Hussain Woody M.D. History of Present Illness Source: patient The patient is a pleasant 82-year-old lady with a past history of gastric ulcer , rectal cancer, coronary artery disease with triple bypass, A. fib with RVR, multiple myeloma, melanoma, and hypothyroidism, who presents with rectal bleeding. She states that for the past 5 days she's been having increasing amounts of black tarry stool. She denies any fresh blood or clot in the stool. She denies any pain with bowel movements. She also states that this is associated with a mid abdominal and epigastric aching discomfort rated 4/10 that comes and goes. At this time she states that the pain is at a 0. However she notes that the pain gets worse with any kind of movement as well as with meals. She states that she decided to come to the emergency room because her pain was reminiscent of previous gastric ulcer that she been diagnosed with. She denies any nausea or vomiting. She does not have any fevers chills or sweats. She does state that her appetite is been slightly reduced for the past 1-2 days. She denies any nonsteroidal use. She is not on any anticoagulation. Of note she does have a history of rectal cancer that was diagnosed and resected /treated with chemotherapy radiotherapy in December 2016. This was done by Dr. Addy Emery from [facility]. She has had an EGD done in December 2016 as well which showed nonbleeding gastric ulceration. In the ED her hemoglobin was noted to be in the 8s. Her baseline hemoglobin is 11. A stool occult blood was done in the ER and was positive. Decision was made to admit the patient for further evaluation of GI bleeding. Past Medical/Surgical History Medical Problems: (1) Coronary artery disease Status: Chronic (2) Hypertension Status: Chronic Multiple myeloma Melanoma Gastric ulcers Hypothyroidism Surgical Problems: (1) History of rectal tumor resection Status: Resolved (2) S/P CABG (coronary artery bypass graft) Status: Resolved (3) S/P hysterectomy Status: Chronic Family History Diabetes Hypertension Social History Smoking Status: Never Smoker Smokeless Tobacco Use: No Alcohol Use: none Drug Use: none Marital Status: Housing status: care home Occupational Status: retired Immunizations History of Influenza Vaccine: Yes History of Tetanus Vaccine?: unknown History of Pneumococcal: Yes History of Hepatitis B Vaccine: Yes Multi-Drug Resistant Organisms History of MDRO: No Allergies Coded Allergies: Aspartame (Verified Allergy, Mild, HEADACHES, N/V, 08/25/17) Shellfish (Verified Allergy, Mild, HEADACHE AND N/V, 08/25/17) Ciprofloxacin (Verified Allergy, Unknown, ELEVATED BLOOD PRESSURE, 08/25/17 ) Iodinated Diagnostic Agents (Verified Allergy, Unknown, R/T SHELLFISH ALLERGY, 08/25/17) Nitrofurantoin (Verified Allergy, Unknown, GI UPSET AND ABDOMINAL PAIN/ SWELLING, 08/25/17) Quinolones (Verified Allergy, Unknown, CIPRO - ELEVATED BLOOD PRESSURE, ) Sulfa Antibiotics (Verified Allergy, Unknown, UNKNOWN - PT STATES DOES NOT REMEMBER, 08/25/17) Home Medications Scheduled Amiodarone Hcl (Amiodarone Hcl), 100 MG PO Q2D Amiodarone Hcl (Amiodarone Hcl), 200 MG PO Q2D Cholecalciferol (Vitamin D3), 1 TAB PO DAILY Cinacalcet (Sensipar), 30 MG PO QAM Ferrous Sulfate (Iron), 1 TAB PO DAILY Glucosamine-Chondroitin (Cosamin Ds), 1 TAB PO DAILY Levothyroxine Sodium (Synthroid), 75 MCG PO QAM Lorazepam (Ativan), 0.5 MG PO Q6H Metoprolol Succinate (Toprol Xl), 25 MG PO QAM Pantoprazole (Protonix), 40 MG PO BID Potassium Ext Rel (Klor-Con), 20 MEQ PO DAILY Pravastatin (Pravachol ), 20 MG PO MWF Prednisone (Prednisone), 5 MG PO QAM Zoledronic Acid (Zometa), 1 DOSE IV [id number] Scheduled PRN Ondansetron Hcl (Zofran), 4 MG PO for Nausea Sucralfate (Sucralfate), 1 GM PO QID PRN for stomach issues Miscellaneous Medications Acetaminophen (Tylenol), 325 MG PO Methylcellulose (Laxative) (Citrucel Fiber Laxative) Review of Systems A 10 point review of systems was negative unless stated above. Physical Exam Vital Signs Date Time Temp Pulse Resp B/P (MAP) Pulse Ox O2 Delivery O2 Flow Rate FiO2 08/25/17 20:37 64 21 169/67 96 08/25/17 20:00 63 15 129/103 94 Room Air 08/25/17 19:50 Room Air 08/25/17 19:00 61 20 155/57 98 Room Air 08/25/17 18:11 63 19 157/70 98 08/25/17 18:05 66 21 08/25/17 17:50 63 20 08/25/17 17:35 65 21 173/69 100 Room Air 08/25/17 17:35 65 22 100 08/25/17 17:34 173/69 08/25/17 17:25 66 08/25/17 16:10 37.1 65 20 155/66 100 Room Air General Appearance: WD/WN, no apparent distress Head: normocephalic, atraumatic Eyes: normal inspection, EOMI ENT: hearing grossly normal, pharynx normal Neck: supple, no adenopathy, no JVD Respiratory/Chest: lungs clear, no respiratory distress Cardiovascular: regular rate, rhythm, no gallop, no murmur Abdomen/GI: normal bowel sounds, soft, + tenderness (mild abdominal tenderness without guarding or rigidity) Back: no CVA tenderness, no muscle spasm Extremities/Musculoskelatal: no calf tenderness, no pedal edema Neurologic/Psych: alert, normal mood/affect, oriented x 3 Skin: normal color, warm/dry, no rash Lymphatic: no adenopathy Diagnostics Laboratory Results Results Past 24 Hours Test 08/25/17 18:07 Range/Units White Blood Count 5.19 4.8-10.8 K/uL Red Blood Count 2.81 4.2-5.4 M/uL Hemoglobin 8.7 12.0-16.0 g/dL Hematocrit 26.6 37-47 % Mean Corpuscular Volume 94.7 80-100 fL Mean Corpuscular Hemoglobin 31.0 25-34 pg Mean Corpuscular Hemoglobin Concent 32.7 32-36 g/dl Platelet Count 223 130-400 K/uL Mean Platelet Volume 10.3 7.4-10.4 fL Neutrophils (%) (Auto) 75.0 % Lymphocytes (%) (Auto) 14.6 % Monocytes (%) (Auto) 9.4 % Eosinophils (%) (Auto) 0.4 % Basophils (%) (Auto) 0.4 % Neutrophils # (Auto) 3.89 1.4-6.5 K/uL Lymphocytes # (Auto) 0.76 1.2-3.4 K/uL Monocytes # (Auto) 0.49 0.11-0.59 K/uL Eosinophils # (Auto) 0.02 0-0.5 K/uL Basophils # (Auto) 0.02 0-0.2 K/uL RDW Standard Deviation 52.6 36.4-46.3 fL RDW Coefficient of Variation 15.3 11.5-14.5 % Immature Granulocyte % (Auto) 0.2 % Immature Granulocyte # (Auto) 0.01 0.00-0.02 K/uL Red Blood Cell Morphology Unremarkable Schistocytes OCCASIONAL Prothrombin Time 10.3 9.0-12.0 SECONDS Prothromb Time International Ratio 1.0 0.9-1.1 Activated Partial Thromboplast Time 22.5 21.0-31.0 SECONDS Partial Thromboplastin Ratio 0.9 Sodium Level 138 136-145 mmol/L Potassium Level 4.3 3.5-5.1 mmol/L Chloride Level 107 98-107 mmol/L Carbon Dioxide Level 22 21-32 mmol/L Anion Gap 9.0 3-11 mmol/L Blood Urea Nitrogen 12 7-18 mg/dl Creatinine 0.63 0.60-1.20 mg/dl Est Creatinine Clear Calc Drug Dose 55.0 ml/min Estimated GFR () 95.5 Estimated GFR (Non- 82.4 BUN/Creatinine Ratio 18.9 10-20 Random Glucose 84 70-99 mg/dl Calcium Level 8.1 8.5-10.1 mg/dl Total Bilirubin 0.4 0.2-1 mg/dl Direct Bilirubin < 0.1 0-0.2 mg/dl Aspartate Amino Transf (AST/SGOT) 12 15-37 U/L Alanine Aminotransferase (ALT/SGPT) 16 12-78 U/L Alkaline Phosphatase 45 45-117 U/L Total Creatine Kinase 45 26-192 U/L Creatine Kinase MB 1.3 0.5-3.6 ng/ml Creatine Kinase MB Ratio 2.9 0-3.0 Troponin I < 0.015 0-0.045 ng/ml Total Protein 6.4 6.4-8.2 gm/dl Albumin 3.5 3.4-5.0 gm/dl Diagnostic Radiology CHEST ONE VIEW PORTABLE HISTORY: 82 years-old Female EVALUATE GI BLEED acute GI bleed. COMPARISON: Chest radiograph 02/17/2017 TECHNIQUE: Portable upright AP view of the chest FINDINGS: Cardiac silhouette is within normal limits. There is atherosclerosis of the aorta. Prior median sternotomy. Lungs are hyperinflated without pneumothorax or pleural effusion. Linear subsegmental bibasilar opacities suggest atelectasis and/or scarring. Bones appear grossly intact and are mildly demineralized. IMPRESSION: Minimal bibasilar atelectasis or scarring without acute cardiopulmonary process. The above report was generated using voice recognition software. It may contain grammatical, syntax or spelling errors. Electronically signed by: Herber Lee M.D. 08/25/2017 6:40 PM Dictated Date/Time: 08/25/2017 6:39 PM Impression Assessment and Plan 82-year-old female presenting with melena. In the ED she has a noted drop in her hemoglobin as well as a grossly heme positive stool. Based on history of symptoms reminding her of a gastric ulcer, and melena, I suspect that bleeding is coming from an upper GI source at this time. Our plan for her is as follows: Acute blood loss anemia secondary to suspected upper GI bleed - Likely upper GI due to melena but has history of rectal tumor earlier this year (which was surgically resected) - Hb 8 on arrival: repeat q6h overnight - Will order type and screen and hold 2 units - Goal to transfuse if < 7 - Consult GI who has seen the patient previously - Keep NPO - Protonix infusion - Continue Sucralfate per home regimen History of Afib with RVR - Rate controlled - Continue Metoprolol and Amiodarone - Anticoagulation contra-indicated due to bleed; patient was not any AC at home prior to arrival History of Multiple Myeloma - On Prednisone at home 5 mg; will hold prednisone at this time - Will give stress steroid dosing Hydrocortisone 50 mg IV Q8H Stable Coronary Artery Disease - Continue Metoprolol - Continue Pravastatin Hypothyroidism - Continue Synthroid DVT Prophylaxis - SCD Knee, JOYCE Hostasha Code Status - Level V Patient states "I only want 1 shock if needed; I don't want chest compressions or to have a breathing tube" Disposition - Med/Surg - OT and PT evaluations Attending Addendum: I have physically seen and examined this patient, have directed the resident's medical activities, and agree with the H&P as noted above with the following exceptions as noted. The patient is awake, alert and oriented 3, well-developed and well-nourished , normocephalic and atraumatic, lying in bed and in no acute distress. HEENT--PERRL, EOMI, mucous membranes and oropharynx dry. Neck--supple, no JVD or bruits, thyroid normal, trachea midline, no adenopathy. Heart--normal S1 and S2, no extra beats, no murmurs, rubs or gallops. Lungs--clear bilaterally with good air movement, no respiratory distress, no accessory muscle use. Abdomen--normal bowel sounds and soft, mildly tender central abdomen, nondistended, no hernias or masses, no organomegaly. Extremities--no cyanosis, clubbing or edema. There are good distal pulses b/l. Dermatologic--normal skin turgor, normal color, warm and dry, no abnormal lymph nodes, no rash. Neurologic--cranial nerves II through XII grossly intact. Rheumatologic--normal range of motion, nontender, muscles and joints. Psychiatric--normal affect. Assessment and Plan: Symptomatic anemia/upper GI bleed-- Hemoglobin 8 upon arrival, however, is likely due to dehydration. H&H every 6 hours. Transfuse if hemoglobin less than 8. Protonix bolus and drip. Nothing by mouth except essential medications. CAD/hypertension/A. fib with RVR-- Continue amiodarone and metoprolol succinate hold parameters. Multiple myeloma--hold prednisone [address] on stress dose hydrocortisone 50 mg IV every 8 hours. Hypothyroidism-- Continue levothyroxine 75 g daily. Level of Care Med/Surg Advanced Directives Existing Advance Directive: Yes Existing Living Will: Yes Existing Power of Cut Off Machine Unloader: Yes Resuscitation Status DO NOT RESUSCITATE (wants only 1 shock to the heart if needed, nothing else) VTE Prophylaxis VTE Risk Assessment Done? Y/N: Yes Risk Level: Moderate Given or contraindicated: SCD's Social Service Consult Lives in Prison
[2017-08-25] MEDS: PANTOprazole INJ 40 MG in DEXTROSE 5% 100ML IV SCH (23:19)
[2017-08-25 23:59] VITALS: BP 159/74; PULSE 62; TEMP 36.8; O2SAT 97
[2017-08-26 00:12] VITALS: O2SAT 96
[2017-08-26 00:35] LABS: URINE APPEARANCE CLEAR (CLEAR); URINE BILIRUBIN NEG (NEG); URINE COLOR YELLOW; URINE NITRITE NEG (NEG); URINE PH 7.5 (4.5-7.5); UROBILINOGEN NEG (NEG); ZZURINE CULT IF INDIC CATH YES
[2017-08-26 00:39] LABS: MANUAL MICROSCOPIC REQUIRED? NO; REVIEW REQ? NO
[2017-08-26] MEDS: PANTOprazole INJ 40 MG in DEXTROSE 5% 100ML IV SCH ×3 (04:11→14:31)
[2017-08-26] MEDS: LORAZEPAM 0.5 MG TAB PO SCH ×3 (05:33→17:10)
[2017-08-26] MEDS: LEVOTHYROXINE 75 MCG TAB PO SCH (05:33)
[2017-08-26] MEDS: HYDROCORTISONE IV 50 MG in SYRINGE 0 ML IV SCH ×2 (05:33→14:31)
[2017-08-26 06:26] LABS: HEMATOCRIT 24.7 % (37-47); MEAN CORPUSCULAR HEMOGLOBIN 30.8 pg (25-34); MEAN CORPUSCULAR HGB CONC 32.4 g/dl (32-36); MEAN PLATELET VOLUME 10.3 fL (7.4-10.4); PLATELET COUNT 209 K/uL (130-400); WHITE BLOOD COUNT 3.97 K/uL (4.8-10.8)
[2017-08-26 07:05] LABS: BUN/CREATININE RATIO 17.6 (10-20); CALCIUM 7.3 mg/dl (8.5-10.1); CREATININE 0.49 mg/dl (0.60-1.20); POTASSIUM 3.8 mmol/L (3.5-5.1)
--- NOTE | 2017-08-26 07:07 | Family Medicine Progress Note ---
Progress Note Date of Service Aug 26, 2017. Subjective Pt evaluation today including: conversation w/ patient, physical exam, chart review, lab review The patient was seen and examined at bedside. Pt still has vague abdominal pain but states that the pain as improved. Pt confirms that she sees Dr. Maier from GI as outpatient. Recent endoscopic resection for colon cancer - she did receive radiation and chemotherapy for it - never had an ostomy. Pt denies having a BM this morning but had one at night. Patient is resting comfortably in bed. Plan of care was described to the patient and all questions were answered. Constitutional: No fever, No chills, No sweats ENT: No hearing loss Respiratory: No cough, No sputum, No wheezing, No shortness of breath Cardiovascular: No chest pain Abdomen: + pain, No diarrhea, No constipation Musculoskeletal: No joint pain Skin: No rash Objective Physical Exam General Appearance: WD/WN, no apparent distress, + thin Eyes: PERRL Neck: supple Respiratory/Chest: chest non-tender, lungs clear, normal breath sounds, no respiratory distress, no accessory muscle use Cardiovascular: regular rate, rhythm, no edema, no gallop, no JVD, no murmur Abdomen: normal bowel sounds, non tender, soft, no organomegaly, no pulsatile mass Extremities: normal range of motion, non-tender, normal inspection, no pedal edema, no calf tenderness Neurologic/Psychiatric: math interventionist II-XII nml as tested, no motor/sensory deficits, alert, normal mood/affect, oriented x 3 Skin: no rash Assessment and Plan 82F with a PMHx of Gastric ulcers, Multiple Myeloma (on prednisone), colon cancer (endoscopically resected, given Chemoradiation), h/o Afib, Hypothyroid and HLD presenting with melena. Baseline hemoglobin is >11.0. In the ER she was noted to be around 8.9. She was not given any PRBC. Stool is heme positive. Pt was made NPO, PPI drip was started. Pt came in on steroids. Expect endoscopy today by Dr. Maier per Gi's note. Hemoglobin stable at 8.0, likely from hemodilution. Pt denies any recent NSAID use. Acute blood loss anemia secondary to suspected upper GI bleed - Likely upper GI due to melena but has history of rectal tumor earlier this year (which was surgically resected) - Hb 8 on arrival: repeat q6h overnight - Will order type and screen and hold 2 units - Goal to transfuse if < 7 - Consult GI - Upper endoscopy grossly normal, will discuss with GI regarding lower endoscopy. - Keep NPO, infuse IVF 100mls/her [id number] - Protonix infusion - Continue Sucralfate per home regimen UTI - Ceftriaxone 1gm daily, Day #1 - Follow up urine cultures. History of Afib with RVR - Rate controlled, pt came in on Sinus rhythm. - Continue Metoprolol and Amiodarone - Anticoagulation contra-indicated due to bleed; patient was not any AC at home prior to arrival History of Multiple Myeloma - On Prednisone at home 5 mg; will hold prednisone at this time - Will give stress steroid dosing Hydrocortisone 50 mg IV Q8H Stable Coronary Artery Disease - Continue Metoprolol - Continue Pravastatin Hypothyroidism - Continue Synthroid DVT Prophylaxis - SCD Knee, JOYCE Hose Disposition - Med/Surg - OT and PT evaluations Code Status - Level V - Patient states "I only want 1 shock if needed; I don't want chest compressions or to have a breathing tube" Resident Physician Supervision Note: I interviewed and examined the patient. Discussed with Dr. Garcia and agree with findings and plan as documented in the note. Any exceptions or clarifications are listed here: None Documented By: Ralf Bender no significant pain or ongoing bleeding. for EGD this afternoon vitals noted nad breathing unlabored no pallor or icterus acute on chronic blood loss anemia - hemodynamically stable - ongoing management and monitoring, await EGD. otherwise as above Resident Involvement: Resident Care Provided Care Provided: Adult Hospital Medicine
[2017-08-26 07:29] VITALS: BP 149/65; PULSE 62; TEMP 36.9; O2SAT 96
[2017-08-26] MEDS ORDERED: GLUCOSAMINE CHONDROITIN PO SCH (08:00)
[2017-08-26] MEDS: NSS + 20MEQ KCL 1000ML 1,000 ML IV SCH ×2 (08:28→17:05)
[2017-08-26] MEDS: AMIODARONE 200 MG TAB PO SCH (08:29)
[2017-08-26] MEDS: METOPROLOL SUCC 25MG EXT REL TAB PO SCH (08:30)
[2017-08-26] MEDS: POTASSIUM CHLORIDE 20 MEQ TABCR PO SCH (08:30)
[2017-08-26] MEDS: FERROUS SULFATE 325 MG TAB PO SCH (08:31)
--- NOTE | 2017-08-26 09:13 | Gastrointestinal Consultation ---
Gastrointestinal Consultation Date of Consultation: Aug 26, 2017 Attending Physician: Dr. Mccullough Consulting Physician: Dr. Maier/OSCAR Simpson Reason for Consultation: GI bleed History of Present Illness Patient is a 82 year old female with a history of prior GI bleeding related to gastric ulceration and bleeding AVM in November of this year. Additionally, she was noted to have a T2 rectal cancer diagnosed by Dr. Maier via colonoscopy in December. She is status post transanal excision of the tumor and has received chemoradiation which has since been completed. She did have a recent follow up with Dr. Garcia in June and is planned for surveillance imaging in September. She states she had been doing well from a GI standpoint until Wednesday. At that time, she developed a sudden onset of loose, tarry and black stools which persisted into Wednesday. Since that time, she has passed several small and dark stools. She did have a black smear this morning. Additionally, she reports epigastric pain and nausea which have improved since admission. Symptoms are worse on an empty stomach. Pain is improved with Carafate which she had been taking as an outpatient in addition to PPI therapy. Risk factors for bleeding: daily Prednisone use. On arrival, she was noted to have a hemoglobin of 8.7 and has again dropped to 8.0 this morning. Her H&H was 11.5 and 34.3 two weeks ago. INR 1.0. Upon evaluation in the ER, she was noted to have heme positive stool. Currently, she is reporting mild fatigue but no abdominal pain at present. She has been made NPO and has been started on a PPI ggt. Past Medical/Surgical History Medical Problems: (1) Chronic deep vein thrombosis (DVT) of both lower extremities Status: Acute (2) GI bleed Status: Acute (3) PNA (pneumonia) Status: Acute (4) Upper GI bleed Status: Acute Past Medical History: 1. CAD 2. Hypertension 3. Multiple myeloma 4. Gastric ulcer 5. Rectal cancer 6. Bleeding AVM 7. Hypothyroidism 8. Melanoma 9. Blood clots 10. Chronic diarrhea Past Surgical History: 1. EGD 2. Complete colonoscopy 3. Transanal excision of rectal mass 4. CABG 5. Hysterectomy Family History Diabetes Hypertension Negative for GI malignancy or IBD Social History Smoking Status: Never Smoker Alcohol Use: none Drug Use: none Marital Status: Housing Status: assisted living Occupation Status: retired Allergies Coded Allergies: Aspartame (Verified Allergy, Mild, HEADACHES, N/V, 08/25/17) Shellfish (Verified Allergy, Mild, HEADACHE AND N/V, 08/25/17) Ciprofloxacin (Verified Allergy, Unknown, ELEVATED BLOOD PRESSURE, 08/25/17 ) Iodinated Diagnostic Agents (Verified Allergy, Unknown, R/T SHELLFISH ALLERGY, 08/25/17) Nitrofurantoin (Verified Allergy, Unknown, GI UPSET AND ABDOMINAL PAIN/ SWELLING, 08/25/17) Quinolones (Verified Allergy, Unknown, CIPRO - ELEVATED BLOOD PRESSURE, ) Sulfa Antibiotics (Verified Allergy, Unknown, UNKNOWN - PT STATES DOES NOT REMEMBER, 08/25/17) Current Medications Home Meds and Scripts Medications Dose Route/Sig Max Daily Dose Days Date Category Dose Instructions Citrucel Fiber Laxative (Methylcellulose (Laxative)) 1 Pow Pow 08/25/17 Reported Zofran (Ondansetron HCl) 4 Mg Tab 4 Mg PO PRN 08/25/17 Reported Ativan (Lorazepam) 0.5 Mg Tab 0.5 Mg PO Q6H 08/25/17 Reported pt to keep at bedside Tylenol (Acetaminophen) 325 Mg Tab 325 Mg PO 08/25/17 Reported Iron (Ferrous Sulfate) 325 Mg Tab 1 Tab PO DAILY 04/12/17 Reported Cosamin Ds (Glucosamine-Chondroitin) 1 Tab Tab 1 Tab PO DAILY 03/16/17 Reported Klor-Con (Potassium Chloride) 20 Meq Tabcr 20 Meq PO DAILY 03/16/17 Reported Vitamin D3 (Cholecalciferol) 1,000 Unit Tab 1 Tab PO DAILY 30 03/16/17 Reported Amiodarone Hcl 100 Mg Tab 200 Mg PO Q2D 03/16/17 Reported Amiodarone Hcl 100 Mg Tab 100 Mg PO Q2D 03/16/17 Reported Zometa (Zoledronic Acid) 4 Mg/100 Ml Inj 1 Dose IV [id number] 01/04/17 Reported Last infusion - 06/23/17, gets every month Sucralfate 1 Gm Tab 1 Gm PO QID PRN 01/04/17 Reported Protonix (Pantoprazole Sodium) 40 Mg Tab 40 Mg PO BID 01/04/17 Reported Prednisone 5 Mg Tab 5 Mg PO QAM 12/08/16 Reported Sensipar (Cinacalcet) 30 Mg Tab 30 Mg PO QAM 04/30/14 Reported Toprol Xl (Metoprolol Succinate) 50 Mg Tabcr 25 Mg PO QAM 04/30/14 Reported Synthroid (Levothyroxine Sodium) 75 Mcg Tab 75 Mcg PO QAM 04/30/14 Reported Pravachol (Pravastatin Sodium) 20 Mg Tab 20 Mg PO MW 04/30/14 Reported TAKE AT BEDTIME Review of Systems Constitutional: + see HPI Eyes: No problem reported ENT: No trouble swallowing, No pain on swallowing Respiratory: No cough, No shortness of breath Cardiac: No chest pain, No edema Abdomen: + see HPI Female : + dysuria Neuro: + memory loss, No numbness/tingling, No vertigo Psych: No problem reported Skin: No problem reported Physical Exam Date Time Temp Pulse Resp B/P (MAP) Pulse Ox O2 Delivery O2 Flow Rate FiO2 08/26/17 07:29 36.9 62 18 149/65 (93) 96 Room Air 08/26/17 00:12 96 Room Air 08/25/17 23:59 36.8 62 20 159/74 (102) 97 Room Air 08/25/17 20:37 64 21 169/67 96 08/25/17 20:00 63 15 129/103 94 Room Air 08/25/17 19:50 Room Air 08/25/17 19:00 61 20 155/57 98 Room Air 08/25/17 18:11 63 19 157/70 98 08/25/17 18:05 66 21 08/25/17 17:50 63 20 08/25/17 17:35 65 21 173/69 100 Room Air 08/25/17 17:35 65 22 100 08/25/17 17:34 173/69 08/25/17 17:25 66 08/25/17 16:10 37.1 65 20 155/66 100 Room Air General Appearance: WD/WN, no apparent distress Eyes: EOMI ENT: hearing grossly normal Neck: supple Respiratory/Chest: lungs clear, normal breath sounds, no respiratory distress Cardiovascular: regular rate, rhythm Abdomen: normal bowel sounds, non tender, soft Extremities: no pedal edema Neurologic/Psych: alert, normal mood/affect, oriented x 3 Skin: warm/dry, + pallor Laboratory Results Last 24 Hours Test 08/25/17 18:07 08/26/17 00:10 08/26/17 05:46 White Blood Count 5.19 K/uL 3.97 K/uL Red Blood Count 2.81 M/uL 2.60 M/uL Hemoglobin 8.7 g/dL 8.0 g/dL Hematocrit 26.6 % 24.7 % Mean Corpuscular Volume 94.7 fL 95.0 fL Mean Corpuscular Hemoglobin 31.0 pg 30.8 pg Mean Corpuscular Hemoglobin Concent 32.7 g/dl 32.4 g/dl Platelet Count 223 K/uL 209 K/uL Mean Platelet Volume 10.3 fL 10.3 fL Neutrophils (%) (Auto) 75.0 % Lymphocytes (%) (Auto) 14.6 % Monocytes (%) (Auto) 9.4 % Eosinophils (%) (Auto) 0.4 % Basophils (%) (Auto) 0.4 % Neutrophils # (Auto) 3.89 K/uL Lymphocytes # (Auto) 0.76 K/uL Monocytes # (Auto) 0.49 K/uL Eosinophils # (Auto) 0.02 K/uL Basophils # (Auto) 0.02 K/uL RDW Standard Deviation 52.6 fL 52.8 fL RDW Coefficient of Variation 15.3 % 15.4 % Immature Granulocyte % (Auto) 0.2 % Immature Granulocyte # (Auto) 0.01 K/uL Red Blood Cell Morphology Unremarkable Schistocytes OCCASIONAL Prothrombin Time 10.3 SECONDS Prothromb Time International Ratio 1.0 Activated Partial Thromboplast Time 22.5 SECONDS Partial Thromboplastin Ratio 0.9 Sodium Level 138 mmol/L 142 mmol/L Potassium Level 4.3 mmol/L 3.8 mmol/L Chloride Level 107 mmol/L 112 mmol/L Carbon Dioxide Level 22 mmol/L 24 mmol/L Anion Gap 9.0 mmol/L 6.0 mmol/L Blood Urea Nitrogen 12 mg/dl 9 mg/dl Creatinine 0.63 mg/dl 0.49 mg/dl Est Creatinine Clear Calc Drug Dose 55.0 ml/min 70.7 ml/min Estimated GFR () 95.5 103.7 Estimated GFR (Non- 82.4 89.5 BUN/Creatinine Ratio 18.9 17.6 Random Glucose 84 mg/dl 99 mg/dl Calcium Level 8.1 mg/dl 7.3 mg/dl Total Bilirubin 0.4 mg/dl Direct Bilirubin < 0.1 mg/dl Aspartate Amino Transf (AST/SGOT) 12 U/L Alanine Aminotransferase (ALT/SGPT) 16 U/L Alkaline Phosphatase 45 U/L Total Creatine Kinase 45 U/L Creatine Kinase MB 1.3 ng/ml Creatine Kinase MB Ratio 2.9 Troponin I < 0.015 ng/ml Total Protein 6.4 gm/dl Albumin 3.5 gm/dl Urine Color YELLOW Urine Appearance CLEAR Urine pH 7.5 Urine Specific King 1.010 Urine Protein NEG Urine Glucose (UA) NEG Urine Ketones NEG Urine Occult Blood TRACE Urine Nitrite NEG Urine Bilirubin NEG Urine Urobilinogen NEG Urine Leukocyte Esterase MODERATE Urine WBC (Auto) >30 /hpf Urine RBC (Auto) 0-4 /hpf Urine Hyaline Casts (Auto) 1-5 /lpf Urine Epithelial Cells (Auto) 5-10 /lpf Urine Bacteria (Auto) 3+ Impression Patient is a 82 year old female with a history of GIB related to gastric ulcer/ AVM as well as rectal cancer status post transanal excision and adjunctive chemoradiation presenting with acute blood loss anemia, melena and epigastric abdominal pain. Plan 1. Remain NPO. 2. Continue Protonix ggt at 8 mg/hr. 3. EGD with Dr. Maier today for further evaluation of symptoms (possible recurrent bleeding AVM/ulcer). 4. Additional recommendations pending results of testing. Thank you for allowing us to participate in the care of this pleasant patient. If you have any questions or concerns, please do not hesitate to contact us. Agree with OSCAR Simpson as above Abd: Soft, NT, ND, +BS Continue current therapy EGD today
[2017-08-26 09:35] VITALS: BP 149/65; PULSE 62; TEMP 36.9; O2SAT 96
[2017-08-26 10:58] LABS: HEMATOCRIT 25.2 % (37-47); MEAN CELL VOLUME 95.1 fL (80-100); MEAN CORPUSCULAR HEMOGLOBIN 30.2 pg (25-34); MEAN CORPUSCULAR HGB CONC 31.7 g/dl (32-36); MEAN PLATELET VOLUME 9.4 fL (7.4-10.4); PLATELET COUNT 196 K/uL (130-400); RED BLOOD COUNT 2.65 M/uL (4.2-5.4); WHITE BLOOD COUNT 4.08 K/uL (4.8-10.8)
[2017-08-26] MEDS ORDERED: LIDOCAINE HCL 2% 2 ML VIAL (20MG/ML) ONE ×2 (16:23)
[2017-08-26] MEDS ORDERED: PROPOFOL IV EMULSION 10 MG/ML 20 ML VIAL IV ONE (16:23)
--- NOTE | 2017-08-26 16:30 | Anesthesiology Progress Note ---
Anesthesia Post Op Note Date & Time Aug 26, 2017 at 16:30 Vital Signs Pain Intensity: 0 Vital Signs Past 12 Hours Date Time Temp Pulse Resp B/P (MAP) Pulse Ox O2 Delivery O2 Flow Rate FiO2 08/26/17 16:18 65 12 135/58 (83) 100 Room Air 08/26/17 15:41 36.8 65 16 164/67 (99) 99 Room Air 08/26/17 09:35 36.9 62 18 149/65 96 Room Air 08/26/17 07:29 36.9 62 18 149/65 (93) 96 Room Air Notes Mental Status: alert / awake / arousable, participated in evaluation Pt Amnestic to Procedure: Yes Nausea / Vomiting: adequately controlled Pain: adequately controlled Airway Patency, RR, SpO2: stable & adequate BP & HR: stable & adequate Hydration State: stable & adequate Anesthetic Complications: no major complications apparent
--- NOTE | 2017-08-26 16:54 | GI REPORT ---
Procedure Date: 08/26/2017 3:54 PM Procedure: Upper GI endoscopy Indications: Melena Medicines: Monitored Anesthesia Care Complications: No immediate complications. Estimated Blood Loss: Estimated blood loss: none. Procedure: Pre-Anesthesia Assessment: - Prior to the procedure, a History and Physical was performed, and patient medications and allergies were reviewed. The patient's tolerance of previous anesthesia was also reviewed. The risks and benefits of the procedure and the sedation options and risks were discussed with the patient. All questions were answered, and informed consent was obtained. Prior Anticoagulants: The patient has taken no previous anticoagulant or antiplatelet agents. ASA Grade Assessment: III - A patient with severe systemic disease. After reviewing the risks and benefits, the patient was deemed in satisfactory condition to undergo the procedure. After obtaining informed consent, the endoscope was passed under direct vision. Throughout the procedure, the patient's blood pressure, pulse, and oxygen saturations were monitored continuously. The scope was introduced through the mouth, and advanced to the second part of duodenum. The upper GI endoscopy was accomplished without difficulty. The patient tolerated the procedure well. Findings: The esophagus was normal. A small hiatus hernia was present. The examined duodenum was normal. Impression: - Normal esophagus. - Small hiatus hernia. - Normal examined duodenum. - No specimens collected. Recommendation: - Return patient to [facility] for [facility] care. - Advance diet as tolerated. - Continue present medications. Tyron Maier DO 08/26/2017 4:17:49 PM This report has been signed electronically. Note Initiated On: 08/26/2017 3:54 PM I attest to the content of the Intraoperative Record and orders documented therein, exceptions below
[2017-08-26] MEDS: CEFTRIAXONE SOD INJ 1 GM in DEXTROSE 5% ADD-VANTAGE 50ML 50 ML IV SCH (19:48)
[2017-08-27 00:55] VITALS: BP 132/68; PULSE 65; TEMP 36.7; O2SAT 99
[2017-08-27] MEDS: LORAZEPAM 0.5 MG TAB PO SCH ×4 (01:51→18:10)
[2017-08-27] MEDS: NSS + 20MEQ KCL 1000ML 1,000 ML IV SCH (03:21)
[2017-08-27] MEDS: LEVOTHYROXINE 75 MCG TAB PO SCH (05:34)
[2017-08-27] MEDS: METOPROLOL SUCC 25MG EXT REL TAB PO SCH (07:22)
[2017-08-27] MEDS: FERROUS SULFATE 325 MG TAB PO SCH (07:23)
[2017-08-27] MEDS: POTASSIUM CHLORIDE 20 MEQ TABCR PO SCH (07:23)
[2017-08-27 07:45] VITALS: BP 153/70; PULSE 59; TEMP 37; O2SAT 99
[2017-08-27 07:50] LABS: HEMATOCRIT 23.4 % (37-47); MEAN CELL VOLUME 94.7 fL (80-100); MEAN CORPUSCULAR HEMOGLOBIN 31.6 pg (25-34); MEAN CORPUSCULAR HGB CONC 33.3 g/dl (32-36); MEAN PLATELET VOLUME 10.2 fL (7.4-10.4); PLATELET COUNT 184 K/uL (130-400); RED BLOOD COUNT 2.47 M/uL (4.2-5.4); WHITE BLOOD COUNT 5.93 K/uL (4.8-10.8)
[2017-08-27 08:19] LABS: BUN/CREATININE RATIO 22.9 (10-20); CALCIUM 7.4 mg/dl (8.5-10.1); CREATININE 0.58 mg/dl (0.60-1.20); POTASSIUM 3.7 mmol/L (3.5-5.1)
[2017-08-27] MEDS ORDERED: AMIODARONE 200 MG TAB PO SCH (09:00)
[2017-08-27] MEDS ORDERED: SENNA 17.6 MG/10 ML UDP PO ONE (10:15)
--- NOTE | 2017-08-27 13:10 | DIAGNOSTIC IMAGING REPORT ---
[facility] HISTORY: constipation and r/o stones COMPARISON: [facility] 12/06/2014. Abdomen and pelvis CT 02/17/2017. FINDINGS: Moderate to large amount well-formed stool seen throughout the colon. Small focus of gas within the deep pelvis could be within the rectum or bladder lumen. Mild levoscoliosis and advanced degenerative changes within the lumbar spine. An IVC filter is noted and unchanged in position. Poststernotomy changes. No renal calculi. No ureteral calculi. No pneumoperitoneum or pneumatosis. IMPRESSION: 1. No renal or ureteral stones. 2. Moderate to large amount well-formed stool seen throughout the colon. This is similar to the prior study. 3. Small sliver of gas within the deep pelvis which could be within the bladder from recent catheterization or within the rectum. Electronically signed by: Gustavo Pickard M.D. 08/27/2017 1:09 PM Dictated Date/Time: 08/27/2017 1:07 PM
[2017-08-27] MEDS ORDERED: CEFU250T15 PO (13:26)
--- NOTE | 2017-08-27 13:36 | Family Medicine Progress Note ---
Progress Note Date of Service Aug 27, 2017. Subjective Pt evaluation today including: conversation w/ patient, physical exam, chart review, lab review The patient was seen and examined at bedside. Pt states that she hasn't pooped since Wednesday. She has some abdominal pain. She has a rudolph in and is complaining of a sensation of urinary frequency. Culture came back positive for E. Coli. Pt is on IV Abx and IVF. IVF were discontinued in the AM. States she takes Senna at home. Unsure of GIs plan. States that she would like to get up out of bed. Plan of care was described to the patient and all questions were answered. Constitutional: No fever, No chills, No sweats Eyes: No worsening of vision ENT: No hearing loss Respiratory: No cough, No sputum, No wheezing, No shortness of breath Cardiovascular: No chest pain Abdomen: + pain, + constipation, No nausea, No vomiting, No diarrhea Female : + dysuria (has rudolph), No urinary frequency, No hematuria, No incontinence Psychiatric: No depression symptoms Endo: No fatigue Objective Physical Exam General Appearance: WD/WN, no apparent distress, + thin Eyes: normal inspection, PERRL, EOMI ENT: normal ENT inspection, hearing grossly normal, TMs normal Respiratory/Chest: chest non-tender, lungs clear, normal breath sounds, no respiratory distress, no accessory muscle use Cardiovascular: regular rate, rhythm, no edema, no gallop, no JVD, no murmur Abdomen: + pertinent finding (soft, non tender, distended, good bowel sounds, likely lots of stool in the rectal vault, nonspecific possible CVA tenderness, no suprapubic tenderness, rudolph in place, no rebound tenderness. ) Neurologic/Psychiatric: office asst II-XII nml as tested, no motor/sensory deficits, alert, normal mood/affect, oriented x 3 Skin: no rash Assessment and Plan 82F with a PMHx of Gastric ulcers, Multiple Myeloma (on prednisone), colon cancer (endoscopically resected, given Chemoradiation), h/o Afib, Hypothyroid and HLD presenting with melena. Baseline hemoglobin is >11.0. In the ER she was noted to be around 8.9. She was not given any PRBC. Stool is heme positive. Pt was made NPO, PPI drip was started. Pt came in on steroids for multiple myeloma. Grossly normal upper endoscopy from Dr. Maier on 08/27/2017. Hemoglobin has been stable around 8.0. Pt has not had any melena or any sort of BM while in hospital. Follow up with GI and PCP have been scheduled. Acute blood loss anemia secondary to suspected upper GI bleed - Likely upper GI due to melena but has history of rectal tumor earlier this year (which was surgically resected) - Hb 8 on arrival, stable around 7. - No transfusions given, pt is relatively asymptomatic. - Upper endoscopy grossly normal, will discuss with GI regarding lower endoscopy. - Regular diet, holding IVF. - Protonix infusion - Continue Sucralfate per home regimen. - At pt's request we are giving Senna for constipation. UTI (E. Coli sensitivities pending) - Ceftriaxone 1gm daily, Day #2 - Follow up urine cultures. - Because of allergy to Cipro, Sulfa and Bactrim, plan to DC on Cefuroxime 250mg BID x 7 days. (last Urine culture showed sensitive e. coli to Cefuroxime) History of Afib with RVR - Rate controlled, pt came in on Sinus rhythm. - Continue Metoprolol and Amiodarone - Anticoagulation contra-indicated due to bleed; patient was not any AC at home prior to arrival History of Multiple Myeloma - On Prednisone at home 5 mg; will hold prednisone at this time - Will give stress steroid dosing Hydrocortisone 50 mg IV Q8H Stable Coronary Artery Disease - Continue Metoprolol - Continue Pravastatin Hypothyroidism - Continue Synthroid DVT Prophylaxis - SCD Knee, JOYCE Hose Disposition - Med/Surg - OT and PT evaluations Code Status - Level V - Patient states "I only want 1 shock if needed; I don't want chest compressions or to have a breathing tube" "Please, follow up at Dr. Woody's office with Kristal Wan PA-C on WednesdaySeptember 01 at 1:00 pm. *If you want to change this appointment you can call the office at [phone]. Please, follow up with Dr. Garcia (terminal make up operator) on WednesdaySeptember 07 at 1:00 pm. *This office is located at [address] [place] [address] in [place] - right beside [facility]. If you need to change this appointment you can call the office at [phone]." Resident Physician Supervision Note: I interviewed and examined the patient. Discussed with Dr. Garcia and agree with findings and plan as documented in the note. Any exceptions or clarifications are listed here: None Documented By: Ralf Bender feeling better but after discussions not yet ready to go home - too weak feels needs a little time to recover. no further GI bleeding. R sided abdominal pain ongoing but d/w her Dr Elton checked KUB and constipation quite consistent with her pattern of pain vitals noted nad breathing unlabored no pallor or icterus acute blood loss anemia due to lower GI source - now stable R sided abdominal pain - appearing c/w constipation - bowel regimen otherwise stable anticipate home tomorrow Resident Involvement: Resident Care Provided Care Provided: Adult Hospital Medicine
--- NOTE | 2017-08-27 13:43 | Discharge Instructions ---
Discharge Instructions Date of Service Aug 27, 2017. Admission Reason for Admission: Gi Bleed Discharge Discharge Diagnosis / Problem: GI bleed Discharge Goals Goal(s): Decrease discomfort, Improve function, Increase independence, Improve disease control, Improve nutritional status, Learn about illness Activity Recommendations Activity Limitations: per Instructions/Follow-up section . Instructions / Follow-Up Instructions / Follow-Up You were admitted with evidence of bleeding as seen by a drop in your blood iron levels and blood in your stool. You were put on medications to help reduce the blood loss. This was effective, as noted by stable blood iron levels and more less dark stool. Camera scoping showed no blood loss from your upper esophageus, stomach and upper small intestine, so it is presumed that the bleeding is coming from your colon. While in the hospital your hemoglobin was stable but low. During your admission, you were also found to have a urinary tract infection and were started on antibiotics. You are being discharged with medication to make sure there is no/minimal recurrence of blood loss. We recommend you keep taking your iron tablets ( ferrous gluconate has been said to cause less constipation that ferrous sulfate) , and continue your previous medications: pantoprazole (Protonix)/ sucralfate, both of which help to reduce the acidity in the stomach). In addition, please take Citrucel and Miralax daily, in addition to remaining well hydrated, in order to keep bowel soft and moving. Dosing can be adjusted based on your bowel movements. For the urinary tract infection, you are on an antibiotic, cefuroxime, which you need to take for another 7 days to help with your urinary infection. Please complete all of the antibiotic as prescribed, even if you no longer have symptoms. Information on UTIs will be attached to your discharge. Follow up appointments with you PCP and Medical Accountant have been made for you, please keep these appointments: Please, follow up at Dr. Woody's office with Kristal Wan PA-C on WednesdaySeptember 01 at 1:00 pm. *If you want to change this appointment you can call the office at [phone]. Please, follow up with Dr. Garcia (marketing project coordinator) on WednesdaySeptember 07 at 1:00 pm. *This office is located at [address] [place] [address] - right beside [facility]. If you need to change this appointment you can call the office at [phone] . Your hemoglobin levels periodically will need to be checked periodically (at your Gastroenterologists or PCPs discretion), typically within 4 weeks of discharge from hospital. Once your hemoglobin is stable, and if you have had no ongoing blood loss for ~ 3 months, discussion for anticoagulation given your intermittent atrial fibrillation, may be warranted. Return to the ER if you experience chest pain or shortness or breath or if you experience significant bright red stools or pitch black stools called melena. An information packet on Anemia and GI bleeding will be attached to this discharge packed. Please read this information carefully. Current Hospital Diet Patient's current hospital diet: AHA Diet (Heart Healthy) Discharge Diet Recommended Diet: AHA Diet (Heart Healthy) Procedures Procedures Performed: EGD Pending Studies Studies pending at discharge: no Medical Emergencies . Who to Call and When: Medical Emergencies: If at any time you feel your situation is an emergency, please call 911 immediately. . Non-Emergent Contact Non-Emergency issues call your: Primary Care Provider, Medical Accountant . . "Provider Documentation" section prepared by Miguel Garcia. . VTE Core Measure Inpt VTE Proph given/why not?: SCD's, Contraindicated (GI Bleed) Resident Involvement: Resident Care Provided Care Provided: Adult Hospital Medicine
[2017-08-27 14:13] VITALS: BP 153/70
[2017-08-27 15:55] VITALS: BP 139/56; PULSE 61; TEMP 36.6; O2SAT 100
--- NOTE | 2017-08-27 16:38 | GASTROINTESTINAL CONSULTATION ---
DATE OF CONSULTATION: 08/27/2017 I had the pleasure of seeing Elizabeth Marr at her bedside today. She is tolerating p.o. intake. She did complain of some right upper quadrant abdominal pain throughout the night; however, states that it is currently resolved. She states that it usually occurs when her stomach is empty. She denies any fevers or chills. She did have a small bowel movement today which was nonbloody per the patient. She has not had any melena or hematemesis. Denies any other complaints at this time. PHYSICAL EXAMINATION: VITAL SIGNS: Temperature 37, pulse 59, respirations 18, blood pressure 153/70, pulse 99% on room air. GENERAL: She is awake, cooperative, in no acute distress. HEAD: Normocephalic, atraumatic. EYES: Pupils equally round. Extraocular muscles are intact. ENT: External evaluation of ears and nose are normal. Oropharynx is clear. NECK: Soft and supple. There is no JVD or lymphadenopathy. CHEST: Clear to auscultation bilaterally. CARDIOVASCULAR SYSTEM: Regular rate and rhythm. ABDOMEN: Soft, mildly tender in the right upper quadrant. Nondistended. Positive bowel sounds. EXTREMITIES: No clubbing or cyanosis. LABORATORY STUDIES: From this morning include an H&H 7.8 and 23.4, a BUN of 13, creatinine 0.58. IMPRESSION: An 82-year-old female who underwent upper endoscopy yesterday secondary to reported melena and heme positive stool who has had no evidence of overt GI bleeding and a normal EGD. PLAN: At the present time, the patient does not wish to undergo colonoscopy for further evaluation of her symptomatology. She is having no overt GI bleeding at this time. I would recommend continuing supportive care and her current therapy including Protonix 40 mg p.o. b.i.d. Once again, thanks for allowing me to participate in the care of this patient. If you have any further questions, please do not hesitate in contacting me.
[2017-08-27] MEDS: CEFTRIAXONE SOD INJ 1 GM in DEXTROSE 5% ADD-VANTAGE 50ML 50 ML IV SCH (18:10)
[2017-08-27] MEDS: PRAVASTATIN SOD 20 MG TAB PO SCH (20:48)
[2017-08-27] MEDS: PANTOprazole SOD 40 MG TAB PO SCH (20:48)
[2017-08-27 23:06] VITALS: BP 139/72; PULSE 79; TEMP 36.6; O2SAT 93
[2017-08-28] MEDS: LORAZEPAM 0.5 MG TAB PO SCH ×2 (01:56→10:15)
[2017-08-28] MEDS: LEVOTHYROXINE 75 MCG TAB PO SCH (06:35)
--- NOTE | 2017-08-28 07:18 | Family Medicine Progress Note ---
Progress Note Date of Service Aug 28, 2017. Objective Vital Signs Date Time Temp Pulse Resp B/P (MAP) Pulse Ox O2 Delivery O2 Flow Rate FiO2 08/28/17 00:00 Room Air 08/27/17 23:06 36.6 79 16 139/72 (94) 93 Room Air 08/27/17 16:41 Room Air 08/27/17 15:55 36.6 61 18 139/56 (83) 100 08/27/17 08:00 Room Air 08/27/17 07:45 37.0 59 18 153/70 (97) 99 Room Air Resident Tracking Resident Involvement: Resident Care Provided Care Provided: Adult Hospital Medicine
[2017-08-28 07:34] LABS: HEMATOCRIT 24.9 % (37-47); MEAN CELL VOLUME 94.7 fL (80-100); MEAN CORPUSCULAR HEMOGLOBIN 31.6 pg (25-34); MEAN CORPUSCULAR HGB CONC 33.3 g/dl (32-36); MEAN PLATELET VOLUME 10.5 fL (7.4-10.4); PLATELET COUNT 190 K/uL (130-400); RED BLOOD COUNT 2.63 M/uL (4.2-5.4); WHITE BLOOD COUNT 5.52 K/uL (4.8-10.8)
[2017-08-28 08:00] VITALS: BP 165/75; PULSE 89; TEMP 36.8; O2SAT 98
[2017-08-28] MEDS ORDERED: PSYLLIUM 58.6% PWD PACK S\\F PO SCH (08:00)
[2017-08-28 08:07] LABS: BUN/CREATININE RATIO 16.6 (10-20); CALCIUM 7.9 mg/dl (8.5-10.1); CREATININE 0.61 mg/dl (0.60-1.20); POTASSIUM 3.6 mmol/L (3.5-5.1)
[2017-08-28 10:00] VITALS: O2SAT 98
[2017-08-28] MEDS: FERROUS SULFATE 325 MG TAB PO SCH (10:16)
[2017-08-28] MEDS: POTASSIUM CHLORIDE 20 MEQ TABCR PO SCH (10:16)
[2017-08-28] MEDS: PANTOprazole SOD 40 MG TAB PO SCH (10:17)
[2017-08-28] MEDS: METOPROLOL SUCC 25MG EXT REL TAB PO SCH (10:17)
[2017-08-28] MEDS: AMIODARONE 200 MG TAB PO SCH (10:18)
[2017-08-28 10:27] VITALS: BP 130/71; PULSE 94
[2017-08-28 13:36] VITALS: BP 130/71; PULSE 94; TEMP 36.8; O2SAT 98
[2017-08-28] MEDS ORDERED: FERR325T18 PO (15:02)
[2017-08-28] MEDS ORDERED: MRLP17X PO (15:22)
[2017-08-28 15:38] VITALS: BP 150/66; PULSE 59; TEMP 36.7; O2SAT 98
--- NOTE | 2017-08-28 22:25 | Discharge Summary ---
Discharge Summary Date of Service Aug 28, 2017. (Alka. Rodriguez MD) Discharge Summary Admission Date: Aug 25, 2017 at 19:40 Discharge Date: Aug 28, 2017 Discharge Disposition: Home Principal Diagnosis: GI bleed, melena Immunizations: Have You Had Influenza Vaccine: Yes History of Tetanus Vaccine?: unknown History of Pneumococcal: Yes History of Hepatitis B Vaccine: Yes Procedures: upper endoscopy Consultations: gastroenterology (Alka. Rodriguez MD) Medication Reconciliation New Medications: Cefuroxime Axetil (Ceftin) 250 Mg Tab 250 MG PO BID for 7 Days, #14 TAB Ferrous Gluconate (Ferrous Gluconate) 324 Mg Tab 324 MG PO DAILY for 30 Days, #30 TAB 2 Refills Polyethylene (Miralax) 17 Gm Pow 17 GM PO DAILY PRN for Constipation, #30 EA 3 Refills Continued Medications: Acetaminophen (Tylenol) 325 Mg Tab 325 MG PO, TAB Amiodarone Hcl (Amiodarone Hcl) 100 Mg Tab 100 MG PO Q2D Amiodarone Hcl (Amiodarone Hcl) 100 Mg Tab 200 MG PO Q2D Cholecalciferol (Vitamin D3) 1,000 Unit Tab 1 TAB PO DAILY for 30 Days, #30 TAB 5 Refills Cinacalcet (Sensipar) 30 Mg Tab 30 MG PO QAM Glucosamine-Chondroitin (Cosamin Ds) 1 Tab Tab 1 TAB PO DAILY Levothyroxine Sodium (Synthroid) 75 Mcg Tab 75 MCG PO QAM Lorazepam (Ativan) 0.5 Mg Tab 0.5 MG PO Q6H, TAB pt to keep at bedside Methylcellulose (Laxative) (Citrucel Fiber Laxative) 1 Pow Pow Metoprolol Succinate (Toprol Xl) 50 Mg Tabcr 25 MG PO QAM Ondansetron Hcl (Zofran) 4 Mg Tab 4 MG PO PRN for Nausea, TAB Pantoprazole (Protonix) 40 Mg Tab 40 MG PO BID Potassium Ext Rel (Klor-Con) 20 Meq Tabcr 20 MEQ PO DAILY, TAB Pravastatin (Pravachol ) 20 Mg Tab 20 MG PO MWF, TAB TAKE AT BEDTIME Prednisone (Prednisone) 5 Mg Tab 5 MG PO QAM Sucralfate (Sucralfate) 1 Gm Tab 1 GM PO QID PRN for stomach issues Zoledronic Acid (Zometa) 4 Mg/100 Ml Inj 1 DOSE IV [id number] Last infusion - 06/23/17, gets every month Discontinued Medications: Ferrous Sulfate (Iron) 325 Mg Tab 1 TAB PO DAILY Discharge Exam Patient feeling well this morning, she denies any acute pulmonary events. She states that she had a very small bowel movement after the dose of senna yesterday. This has helped to diminish her abdominal discomfort. She also notes that the stool was less dark than the dark tarry stools that she was having prior to admission. She otherwise is comfortable. She denies fever, chest pain, shortness of breath and other symptoms of anemia. She is tolerating diet without any nausea or vomiting. She still has some urinary symptoms, namely her dysuria and frequency have improved but she is still feeling urgency and had 2 episodes of incontinence. She is hopeful that the antibiotics will continue to improve her symptoms. patient is keen for home. ROS is unremarkable except as noted above. Physical Exam: General Appearance: WD/WN, no apparent distress Eyes: normal inspection ENT: hearing grossly normal Neck: supple, no adenopathy Respiratory/Chest: lungs clear, normal breath sounds, no respiratory distress, no accessory muscle use Cardiovascular: regular rate, rhythm, no murmur, normal peripheral pulses Abdomen / GI: normal bowel sounds, non tender, soft Extremities: no calf tenderness, normal capillary refill, no pedal edema Neurologic/Psychiatric: alert, normal reflexes, oriented x 3 Skin: normal color, warm/dry, no rash (Alka. Rodriguez MD) Hospital Course 82F with a PMHx of Gastric ulcers, Multiple Myeloma (on prednisone), colon cancer (endoscopically resected, given Chemoradiation), h/o Afib, Hypothyroid and HLD presenting with melena. Baseline hemoglobin is >11.0. In the ER she was noted to be around 8.9. She was not given any PRBC, as relatively asymptomatic. Stool is heme positive. Pt was made NPO, PPI drip was started, with eventual supplementation of iron tablets. Grossly normal upper endoscopy from Dr. Maier on 08/27/2017. Likely upper GI due to melena but has history of rectal tumor earlier this year (which was surgically resected). Hemoglobin has been stable around 8.0. Pt has not had any melena or any sort of BM while in hospital. Follow up with GI and PCP have been scheduled. Also found to have E.coli UTI with sensitivity to celphalosporins. Some symptom improvement attained with ceftriaxone, finish oral course at home. At discharge: Acute blood loss anemia secondary to suspected upper GI bleed - Continue pantoprazole 40mg BID, sucralfate, and switch from ferrous sulfate to ferrous gluconate supplementation daily (possibly has less constipation). - Keep constipation at bay with increased hydration, citracel daily, and Miralax PRN decreased frequency of bowel movements. - Follow up with PCP and GI, with repeat CBC to ensure hemoglobin is stable. a) Follow up at Dr. Woody's office with Kristal Wan PA-C on WednesdaySeptember 01 at 1:00 pm. Office number: [phone]. b) Follow up with Dr. Garcia (station superintendent) on WednesdaySeptember 07 at 1 :[address] [place] [address]. Office number: [phone]. UTI (E. Coli sensitivities pending) - Cefuroxime x 7 more days (as allergy to Cipro, Sulfa and Bactrim) - Follow up urine cultures may be warranted, discuss with PCP. History of Afib with RVR - Rate controlled, and patient has remained in sinus rhythm. - Continue Metoprolol and Amiodarone - Anticoagulation contra-indicated due to bleed; patient was not any AC at home prior to arrival - Discussion with PCP after 3 months with no bleed may be warranted regarding consideration of anticoagulation History of Multiple Myeloma - Home prednisone held and temporarily switched to Hydrocortisone 50 mg IV Q8H. - Resumed prednisone 5mg daily Stable Coronary Artery Disease - Continue Metoprolol and Pravastatin Hypothyroidism - Continue Synthroid DVT Prophylaxis - SCD Knee, JOYCE Hose Disposition - OT and PT evaluations completed Code Status - Level V - Patient states "I only want 1 shock if needed; I don't want chest compressions or to have a breathing tube" Total Time Spent: Less than 30 minutes This includes examination of the patient, discharge planning, medication reconciliation, and communication with other providers. (Alka. Rodriguez MD) Resident Physician Supervision Note: I interviewed and examined the patient. Discussed with Dr. Rodriguez and agree with findings and plan as documented in the note. Any exceptions or clarifications are listed here: None Documented By: Ralf Bender feeling better wants to go home no furtehr bleeding vitals noted nad breathing unlabored no pallor or icterus acute blood loss anemia - appearing due to GI bleed lower source. ?rectal CA related vs other - outpt f/u further - set up w Dr Garcia, also may need further colo but pt doesn't want unless totally necessary and bleeding has clinically totally stopped abdominal pain - appearing related to constpation - miralax stable for home (Ralf Bender D.Xiomara.) Discharge Instructions Please refer to the electronic Patient Visit Report (Discharge Instructions) for additional information. (Alka. Rodriguez MD) Additional Copies To Alexandr Garcia M.D. Resident Tracking Resident Involvement: Resident Care Provided Care Provided: Adult Hospital Medicine (Alka. Rodriguez MD)
== END 2017-08-28 15:55 | disposition home or self-care (01) | DRG 378 ==
LOC: C.EDB 15:52 → C.MS4W 19:40 → EDBEDREQ 19:44 → ENRESERV 20:07
PROVIDERS: ADMIT Student in an Organized Health Care Education/Training Program; ATTEND Family Medicine
DX: K92.1 Melena (principal); C90.01 Multiple myeloma in remission; D62 Acute posthemorrhagic anemia; N39.0 Urinary tract infection, site not specified; I48.91 Unspecified atrial fibrillation; Z85.048 Personal history of other malignant neoplasm of rectum, rectosigmoid junction, and anus; I10 Essential (primary) hypertension; Z88.2 Allergy status to sulfonamides; E03.9 Hypothyroidism, unspecified; I25.10 Atherosclerotic heart disease of native coronary artery without angina pectoris; Z79.52 Long term (current) use of systemic steroids; B96.20 Unspecified Escherichia coli [E. coli] as the cause of diseases classified elsewhere; Z92.3 Personal history of irradiation

== ENCOUNTER → 2017-08-25 | Outpatient (CLI) | payer OTHER ==
[2017-08-25 09:00] LABS: HEMATOCRIT 24.2 % (37-47); MEAN CELL VOLUME 93.8 fL (80-100); MEAN CORPUSCULAR HEMOGLOBIN 31.4 pg (25-34); MEAN CORPUSCULAR HGB CONC 33.5 g/dl (32-36); MEAN PLATELET VOLUME 10.8 fL (7.4-10.4); PLATELET COUNT 188 K/uL (130-400); RED BLOOD COUNT 2.58 M/uL (4.2-5.4); WHITE BLOOD COUNT 3.52 K/uL (4.8-10.8)
[2017-08-25 09:07] LABS: BLOOD UREA NITROGEN 14 mg/dl (7-18); CALCIUM 7.7 mg/dl (8.5-10.1); CARBON DIOXIDE 22 mmol/L (21-32); CHLORIDE 110 mmol/L (98-107); CREATININE 0.55 mg/dl (0.60-1.20); GLUCOSE 81 mg/dl (70-99); POTASSIUM 3.8 mmol/L (3.5-5.1); SODIUM 141 mmol/L (136-145)
[2017-08-25 09:08] LABS: TOTAL IRON BINDING CAPACITY 245 mcg/dl (250-450)
== END ==
LOC: C.LABSPEC 08:28
PROVIDERS: ATTEND Internal Medicine
DX: D64.9 Anemia, unspecified (principal)

== ENCOUNTER → 2017-09-01 | Outpatient (CLI) | payer OTHER ==
[~2017-09-01] MED LIST changes: +ACET-1256 PO; +ACET-1311 PO; -ACYC1CAP8 PO; +AMIO200T4 PO; +CEFU250T15 PO; +CYAN100020 PO; -FERR1TAB23 PO; +FERR325T18 PO; +GLUC500C4 PO; +LEVO75TA5 PO; +LORA-741 PO; +MCRK20 PO; +METHPOW7; +METHPOW7 PO; +MRLP17X PO; +ONDA4TAB46 PO; +ONDA8TAB6 PO; +SUCR1TAB29 PO; +TPRSR/25 PO; +[UNRECOGNIZED DRUG - CODE] IV
[2017-09-01 09:00] LABS: HEMATOCRIT 25.5 % (37-47); MEAN CELL VOLUME 95.9 fL (80-100); MEAN CORPUSCULAR HGB CONC 33.3 g/dl (32-36); MEAN PLATELET VOLUME 10.3 fL (7.4-10.4); PLATELET COUNT 216 K/uL (130-400); RED BLOOD COUNT 2.66 M/uL (4.2-5.4); WHITE BLOOD COUNT 3.18 K/uL (4.8-10.8)
[2017-09-01 09:11] LABS: BLOOD UREA NITROGEN 11 mg/dl (7-18); BUN/CREATININE RATIO 19.3 (10-20); CALCIUM 8.3 mg/dl (8.5-10.1); CARBON DIOXIDE 27 mmol/L (21-32); CHLORIDE 106 mmol/L (98-107); CREATININE 0.58 mg/dl (0.60-1.20); GLUCOSE 77 mg/dl (70-99); POTASSIUM 3.4 mmol/L (3.5-5.1); SODIUM 140 mmol/L (136-145)
--- NOTE | 2017-09-02 19:32 | CODING QUERY NO DIAGNOSIS ---
: 1935 TREATMENT RENDERED WITHOUT A DIAGNOSIS To promote full compliance with coding requirements relating to patient care, physician participation is requested in all cases of bag turner uncertainty. Please assist us with providing a diagnosis/symptom for the test(s) below: A diagnosis/symptom was not documented on your Order. A valid diagnosis/symptom is required to bill all insurances. Please remember that we are unable to code a diagnosis of rule out, probable, possible, questionable, or suspected. Tests that require a diagnosis: DOS: 09/01/17 * CBC W/O DIFFERENTIAL DIAGNOSIS: * ALBUMIN DIAGNOSIS: * PHOSPHORUS DIAGNOSIS: * PARTIAL RENAL PROFILE DIAGNOSIS: Provider Signature: Date: Thank you Nubia Antonio Health Information Management Once completed, please kindly fax back to [phone] For questions please call [phone]
== END | disposition home or self-care (01) ==
LOC: C.LABSPEC 08:47
PROVIDERS: ATTEND Internal Medicine
DX: E83.52 Hypercalcemia (principal)

== ENCOUNTER → 2017-09-16 | Outpatient (CLI) | payer OTHER ==
[~2017-09-16] MED LIST changes: -ACET-1311 PO; -AMIO0.1T PO; -CEFU250T15 PO; -GLUC500T35 PO; -LEVO75TA PO; -METHPOW7; -METO-217 PO; -ONDA4TAB46 PO; -POTA20TA16 PO; -PRAV20TA PO; -SUCR1TAB PO; -ZOLE1INJ IV
--- NOTE | 2017-09-16 13:40 | DIAGNOSTIC IMAGING REPORT ---
CT SCAN OF THE ABDOMEN AND PELVIS WITHOUT IV CONTRAST CLINICAL HISTORY: Rectal carcinoma. Melenotic stool. COMPARISON STUDY: Abdominal CT dated 02/17/2017. TECHNIQUE: CT scan of the abdomen and pelvis is performed from the lung bases to the proximal femora. Images are reviewed in the axial, sagittal, and coronal planes. IV contrast was not administered for this examination as per the referring clinician. Note that the examination was performed in suboptimal fashion without IV contrast. Oral contrast was utilized. The examination is also degraded by cachexia and a paucity of intraperitoneal fat. A dose lowering technique was utilized adhering to the principles of ALARA. FINDINGS: Lung bases: The patient is status post midline sternotomy. The heart is mildly enlarged and without pericardial effusion. There is diminished attenuation of the cardiac blood pool as compared to the myocardium suggesting anemia. The coronary arteries are densely calcified. There is bibasilar scarring versus atelectasis. Emphysema is suspected. No airspace consolidation or pleural effusion is identified. Liver: The unenhanced liver is normal in size, contour, and attenuation. There is no intrahepatic biliary ductal dilatation. Gallbladder: Unremarkable. Spleen: Normal in size and attenuation. There are calcified splenic granulomas. Pancreas: The unenhanced pancreas is atrophic and grossly unremarkable. Adrenal glands: Unremarkable. Kidneys: The unenhanced kidneys are atrophic and without hydronephrosis. There are no renal calculi identified. A punctate cortical calcification is noted in the left upper pole. There is no evidence of contour deforming renal mass lesion. Abdominal vasculature: The abdominal aorta is normal in course and caliber noting advanced atherosclerotic calcification. An IVC filter is in place. Bowel: There is moderate diverticulosis of left colon without CT evidence of acute diverticulitis. Moderate colonic fecal retention is observed. No bowel obstruction is seen. Mild rectal wall thickening is questioned. The appendix is not identified and reported surgically absent. Peritoneum: There is no intraperitoneal free air or abdominal ascites. Lymphadenopathy: None. Pelvic viscera: The bladder is normal as visualized. The uterus is surgically absent. No adnexal lesion is seen. Findings suggest pelvic floor prolapse. Skeletal structures: The skeletal structures are osteopenic. There is advanced lumbar spondylosis and scoliosis. A moderate compression deformity is noted in T12. No lytic or blastic lesions are seen. Soft tissues: The patient is cachectic. IMPRESSION: 1. Suboptimal examination without IV contrast. The examination is also degraded by a paucity of intraperitoneal fat 2. Question mild rectal wall thickening. Clinical correlation will be required. No significant perirectal inflammation is seen. 3. Moderate colonic diverticulosis without CT evidence of acute diverticulitis. 4. Moderate constipation. 5. Additional findings as above. Electronically signed by: Sridhar Porter M.D. 09/16/2017 1:38 PM Dictated Date/Time: 09/16/2017 1:31 PM
--- NOTE | 2017-09-16 13:42 | DIAGNOSTIC IMAGING REPORT ---
(CHEST) THORAX WITHOUT CT DOSE: 666.56 mGycm HISTORY: Carcinoma RECTAL CA TECHNIQUE: Multiaxial CT images of the chest were performed without contrast. A dose lowering technique was utilized adhering to the principles of ALARA. COMPARISON: 01/20/2017 FINDINGS: No change compared to the prior study. The micronodularity of the mid to lower lung regions is nonprogressive. Baseline emphysematous change is stable. Moderate dilatation of the root of the aorta is unaltered with a greatest dimension of 4.2 cm. There are no new or interval findings. Several small calcified mediastinal and/or hilar nodes are considered benign. These are unchanged. There is no evidence for new or interval process. IMPRESSION: Stable exam including unchanging minimal micronodularity . No change from the prior exam. Unchanging distention of the root of the aorta. A routine 6-12 months follow-up is suggested The above report was generated using voice recognition software. It may contain grammatical, syntax or spelling errors. Electronically signed by: Miguel Luciano M.D. 09/16/2017 1:41 PM Dictated Date/Time: 09/16/2017 1:25 PM
== END | disposition home or self-care (01) ==
LOC: C.CTS 12:29
PROVIDERS: ATTEND Colon & Rectal Surgery
DX: C20 Malignant neoplasm of rectum (principal)

== ENCOUNTER → 2017-09-20 | Day surgery (SDC) | payer OTHER ==
[~2017-09-20] VITALS: Ht 165.1 cm; Wt 56.8 kg
[~2017-09-20] MED LIST changes: +ACET-1311 PO; +AMIO0.1T PO; +ATROPINE SULFATE 0.1 MG/ML 5ML SYR IV PRN; +CEFU250T15 PO; +EpHEDrine SULFATE 50MG/5ML SYR ONE; +EpHEDrine SULFATE INJ 50 MG/ML AMP IV PRN; +GLUC500T35 PO; +LEVO75TA PO; +LIDOCAINE HCL 2% 2 ML VIAL (20MG/ML) ONE; +METHPOW7; +METO-217 PO; +NEOMYCIN/POLYMYX/BACITR OINT 15 GM TUBE ONE; +ONDA4TAB46 PO; +POTA20TA16 PO; +PRAV20TA PO; +PROPOFOL IV EMULSION 10 MG/ML 20 ML VIAL IV ONE; +SODIUM CHLORIDE 0.9% 500ML 500 ML IV ONE; +SUCR1TAB PO; +ZOLE1INJ IV
[2017-09-20 10:28] VITALS: Ht 165.1 cm; Wt 56.8 kg
--- NOTE | 2017-09-20 11:01 | Endo History and Physical ---
History & Physical Date of Service: Sep 20, 2017. Chief Complaint: Rectal bleeding, retal cancer Referring Physician: Dr. Brownlee History of Present Illness 82 yo CF who presents for colonoscopy secondary to rectal bleeding and rectal cancer. Past Medical History Atrial Fibrillation, Osteoporosis, Arthritis, Gastrointestinal Disorder, Anxiety , Reflux, High Cholesterol, CABG, Heart Disease, Thrombophlebitis, Thyroid Disease Past Surgical History Hx Cardiac Surgery: Yes (HEART CATH, CABG-3 VESSELS) Hx Internal Defibrillator: No Hx Pacemaker: No Hx Abdominal Surgery: Yes (APPY, AMBER BSO) Hx of Implantable Prosthesis: No Hx Post-Op Nausea and Vomiting: No Hx Cancer Surgery: No Hx Thoracic Surgery: No Hx Orthopedic: Yes (RT KNEE SURGERY) Hx Urinary Tract Surgery: No Family History None Social History Smoking Status: Never Smoker Hx Substance Use: No Hx Alcohol Use: No Allergies Coded Allergies: Aspartame (Verified Allergy, Mild, HEADACHES, N/V, 09/13/17) Shellfish (Verified Allergy, Mild, HEADACHE AND N/V, 09/13/17) Ciprofloxacin (Verified Allergy, Unknown, ELEVATED BLOOD PRESSURE, 08/25/17 ) Iodinated Diagnostic Agents (Verified Allergy, Unknown, R/T SHELLFISH ALLERGY, 08/25/17) Nitrofurantoin (Verified Allergy, Unknown, GI UPSET AND ABDOMINAL PAIN/ SWELLING, 08/25/17) Quinolones (Verified Allergy, Unknown, CIPRO - ELEVATED BLOOD PRESSURE, ) Sulfa Antibiotics (Verified Allergy, Unknown, UNKNOWN - PT STATES DOES NOT REMEMBER, 08/25/17) Current Medications Reported Home Medications Medications Dose Route/Sig Max Daily Dose Days Date Category Zometa (Zoledronic Acid) 4 Mg/5 Ml Inj 1 Dose IV DIRECTED 09/13/17 Reported Vitamin D3 (Cholecalciferol) 1,000 Unit Tab 1 Tab PO DAILY 90 09/13/17 Reported Vitamin B12 (Cyanocobalamin) 1,000 Mcg Tab 1 Tab PO DAILY 09/13/17 Reported Carafate (Sucralfate) 1 Gm Tab 1 Gm PO QID PRN 09/13/17 Reported Sensipar (Cinacalcet) 30 Mg Tab 30 Mg PO DAILY 09/13/17 Reported Prednisone 5 Mg Tab 5 Mg PO DAILY 09/13/17 Reported Klor-Con M20 (Potassium Chloride) 20 Meq Tabcr 1 Tab PO DAILY 09/13/17 Reported Miralax (Polyethylene) 17 Gm Pow 1 Dose PO DAILY PRN 09/13/17 Reported Protonix (Pantoprazole Sodium) 40 Mg Tab 40 Mg PO DAILY 09/13/17 Reported Zofran (Ondansetron HCl) 8 Mg Tab 8 Mg PO Q6H PRN 09/13/17 Reported Metoprolol Succinate ER (Metoprolol Succinate) 25 Mg Tabcr 1 Tab PO DAILY 09/13/17 Reported Ativan (Lorazepam) 0.5 Mg Tab 0.5-1 Tab PO DAILY PRN 09/13/17 Reported Levothyroxine Sodium 75 Mcg Tab 1 Tab PO DAILY 90 09/13/17 Reported Glucosamine (Glucosamine Sulfate) 500 Mg Cap 2 Cap PO DAILY 09/13/17 Reported Ferrous Gluconate 324 Mg Tab 324 Mg PO DAILY 09/13/17 Reported Citrucel Fiber Laxative (Methylcellulose (Laxative)) 1 Pow Pow 1 Dose PO DAILY PRN 09/13/17 Reported Cordarone (Amiodarone Hcl) 200 Mg Tab 100 Mg PO DAILY 09/13/17 Reported Tylenol (Acetaminophen) 500 Mg Tab 1-2 Tab PO Q6H PRN 3 09/13/17 Reported Vital Signs Weight (Kilograms): 56.82 Height (Feet): 5 Height (Inches): 5 Date Time Temp Pulse Resp B/P (MAP) Pulse Ox O2 Delivery O2 Flow Rate FiO2 09/20/17 10:34 36.8 62 18 199/89 (125) 99 Room Air Physical Exam General Appearance: WD/WN, no apparent distress Respiratory/Chest: Auscultation: breath sounds normal Cardiovascular: Heart Auscultation: RRR Abdomen: Bowel Sounds: normal Inspection & Palpation: soft, non-distended, no tenderness, guarding & rebound Assessment and Plan Assessment: 82 yo CF who presents for colonoscopy secondary to rectal bleeding and rectal cancer. Plan: Proceed with colonoscopy.
--- NOTE | 2017-09-20 11:27 | Discharge Instructions ---
Endoscopy Patient Instructions Date / Procedure(s) Performed Sep 20, 2017. Colonoscopy Allergy Information Coded Allergies: Aspartame (Verified Allergy, Mild, HEADACHES, N/V, 09/13/17) Shellfish (Verified Allergy, Mild, HEADACHE AND N/V, 09/13/17) Ciprofloxacin (Verified Allergy, Unknown, ELEVATED BLOOD PRESSURE, 08/25/17 ) Iodinated Diagnostic Agents (Verified Allergy, Unknown, R/T SHELLFISH ALLERGY, 08/25/17) Nitrofurantoin (Verified Allergy, Unknown, GI UPSET AND ABDOMINAL PAIN/ SWELLING, 08/25/17) Quinolones (Verified Allergy, Unknown, CIPRO - ELEVATED BLOOD PRESSURE, ) Sulfa Antibiotics (Verified Allergy, Unknown, UNKNOWN - PT STATES DOES NOT REMEMBER, 08/25/17) Discharge Date / Findings Sep 20, 2017. Diverticulosis Internal hemorrhoids Medication Instructions OK to resume all medications today as prescribed Reported Home Medications Medications Dose Route/Sig Max Daily Dose Days Date Category Zometa (Zoledronic Acid) 4 Mg/5 Ml Inj 1 Dose IV DIRECTED 09/13/17 Reported Vitamin D3 (Cholecalciferol) 1,000 Unit Tab 1 Tab PO DAILY 90 09/13/17 Reported Vitamin B12 (Cyanocobalamin) 1,000 Mcg Tab 1 Tab PO DAILY 09/13/17 Reported Carafate (Sucralfate) 1 Gm Tab 1 Gm PO QID PRN 09/13/17 Reported Sensipar (Cinacalcet) 30 Mg Tab 30 Mg PO DAILY 09/13/17 Reported Prednisone 5 Mg Tab 5 Mg PO DAILY 09/13/17 Reported Klor-Con M20 (Potassium Chloride) 20 Meq Tabcr 1 Tab PO DAILY 09/13/17 Reported Miralax (Polyethylene) 17 Gm Pow 1 Dose PO DAILY PRN 09/13/17 Reported Protonix (Pantoprazole Sodium) 40 Mg Tab 40 Mg PO DAILY 09/13/17 Reported Zofran (Ondansetron HCl) 8 Mg Tab 8 Mg PO Q6H PRN 09/13/17 Reported Metoprolol Succinate ER (Metoprolol Succinate) 25 Mg Tabcr 1 Tab PO DAILY 09/13/17 Reported Ativan (Lorazepam) 0.5 Mg Tab 0.5-1 Tab PO DAILY PRN 09/13/17 Reported Levothyroxine Sodium 75 Mcg Tab 1 Tab PO DAILY 90 09/13/17 Reported Glucosamine (Glucosamine Sulfate) 500 Mg Cap 2 Cap PO DAILY 09/13/17 Reported Ferrous Gluconate 324 Mg Tab 324 Mg PO DAILY 09/13/17 Reported Citrucel Fiber Laxative (Methylcellulose (Laxative)) 1 Pow Pow 1 Dose PO DAILY PRN 09/13/17 Reported Cordarone (Amiodarone Hcl) 200 Mg Tab 100 Mg PO DAILY 09/13/17 Reported Tylenol (Acetaminophen) 500 Mg Tab 1-2 Tab PO Q6H PRN 3 09/13/17 Reported Provider Instructions Activity Restrictions - No exercising or heavy lifting for 24 hours. - Do not drink alcohol the day of the procedure. - Do not drive a car or operate machinery until the day after the procedure. - Do not make any important decisions or sign important papers in 24 hours after the procedure. Following Day: - Return to full activity which may include returning to work/school. Diet Start your diet with liquids and light foods (jello, soup, juice, toast). Then eat your usual diet if not nauseated. Treatment For Common After Affects For mild abdominal pain, bloating, or excessive gas: - Rest - Eat lightly - Lie on right side Follow-Up Information Follow-up with Dr. Woody/Kevin as scheduled Anesthesia Information What You Should Know You have had a procedure that required some medicine to reduce anxiety and discomfort. This treatment is called moderate sedation. After receiving the treatment, you may be sleepy, but you will be able to breathe on your own. The effects of the treatment may last for several hours. Follow these instructions along with Activity/Diet recommendations noted above: * Do NOT do anything where dizziness or clumsiness would be dangerous. * Rest quietly at home today, then you can be up and about tomorrow. * Have a responsible person stay with you the rest of today. * You may have had an I.V. today. If so, you may take the dressing off later today. Recommendations Call your doctor if: * Trouble breathing * Continuous vomiting for more than 24 hours * Temperature above 101 degrees * Severe abdominal pain or bloating * Pain not relieved by pain medicine ordered * There is increased drainage or redness from any incision * A large amount of rectal bleeding greater than 2-3 tablespoons. (If you had a polyp/s removed or have hemorrhoids, a small amount of blood - from the rectum is to be expected.) * You have any unanswered questions or concerns. IN THE EVENT OF A SERIOUS EMERGENCY, GO TO THE NEAREST EMERGENCY ROOM Your discharge instructions were prepared by provider Tyron Maier. Patient Instructions Signature Page Elizabeth Maciel Patient (or Guardian) Signature/Date: I have read and understand the instructions given to me by my caregivers. Caregiver/RN/Doctor Signature/Date: The above-named patient and/or guardian has received patient instructions on this date. + Original Patient Signature Page (only) stays with chart. Please make copy for patient.
--- NOTE | 2017-09-20 11:29 | Anesthesiology Progress Note ---
Anesthesia Post Op Note Date & Time Sep 20, 2017 at 11:29 Vital Signs Pain Intensity: 0 Vital Signs Past 12 Hours Date Time Temp Pulse Resp B/P (MAP) Pulse Ox O2 Delivery O2 Flow Rate FiO2 09/20/17 10:34 36.8 62 18 199/89 (125) 99 Room Air Notes Mental Status: alert / awake / arousable, participated in evaluation Pt Amnestic to Procedure: Yes Nausea / Vomiting: adequately controlled Pain: adequately controlled Airway Patency, RR, SpO2: stable & adequate BP & HR: stable & adequate Hydration State: stable & adequate Anesthetic Complications: no major complications apparent
--- NOTE | 2017-09-20 11:30 | GI REPORT ---
Procedure Date: 09/20/2017 10:47 AM Procedure: Colonoscopy Indications: Rectal bleeding Medicines: Monitored Anesthesia Care Complications: No immediate complications. Estimated Blood Loss: Estimated blood loss: none. Procedure: Pre-Anesthesia Assessment: - Prior to the procedure, a History and Physical was performed, and patient medications and allergies were reviewed. The patient's tolerance of previous anesthesia was also reviewed. The risks and benefits of the procedure and the sedation options and risks were discussed with the patient. All questions were answered, and informed consent was obtained. Prior Anticoagulants: The patient has taken no previous anticoagulant or antiplatelet agents. ASA Grade Assessment: IV - A patient with severe systemic disease that is a constant threat to life. After reviewing the risks and benefits, the patient was deemed in satisfactory condition to undergo the procedure. After I obtained informed consent, the scope was passed under direct vision. Throughout the procedure, the patient's blood pressure, pulse, and oxygen saturations were monitored continuously. The Scope was introduced through the anus and advanced to the terminal ileum. The colonoscopy was performed without difficulty. The patient tolerated the procedure well. The quality of the bowel preparation was good. The terminal ileum, ileocecal valve, appendiceal orifice, and rectum were photographed. Findings: Multiple small-mouthed diverticula were found in the sigmoid colon. Non-bleeding internal hemorrhoids were found during retroflexion. The hemorrhoids were small. A 20 mm post mucosectomy scar was found in the rectum. There was no evidence of the previous polyp. Impression: - Diverticulosis in the sigmoid colon. - Non-bleeding internal hemorrhoids. - Post mucosectomy scar in the rectum. - No specimens collected. Recommendation: - Resume previous diet. - Continue present medications. - No repeat colonoscopy due to age and the absence of advanced adenomas. - Return to primary care physician as previously scheduled. Tyron Maier DO 09/20/2017 11:30:00 AM This report has been signed electronically. Note Initiated On: 09/20/2017 10:47 AM I attest to the content of the Intraoperative Record and orders documented therein, exceptions below
[2017-09-20 11:45] VITALS: BP 156/62; PULSE 63; O2SAT 100
== END | disposition home or self-care (01) ==
LOC: C.GI 10:12
PROVIDERS: ATTEND Internal Medicine
DX: K57.30 Diverticulosis of large intestine without perforation or abscess without bleeding (principal); K64.8 Other hemorrhoids; K62.5 Hemorrhage of anus and rectum; Z87.19 Personal history of other diseases of the digestive system; I48.91 Unspecified atrial fibrillation; E78.00 Pure hypercholesterolemia, unspecified; I25.10 Atherosclerotic heart disease of native coronary artery without angina pectoris; K21.9 Gastro-esophageal reflux disease without esophagitis; E07.9 Disorder of thyroid, unspecified; M81.0 Age-related osteoporosis without current pathological fracture; M19.90 Unspecified osteoarthritis, unspecified site; F41.9 Anxiety disorder, unspecified; F32.9 Major depressive disorder, single episode, unspecified; Z95.1 Presence of aortocoronary bypass graft; Z79.899 Other long term (current) drug therapy

== ENCOUNTER → 2017-10-07 | Outpatient (CLI) | payer OTHER ==
[~2017-10-07] MED LIST changes: -ACET-1311 PO; -AMIO0.1T PO; -ATROPINE SULFATE 0.1 MG/ML 5ML SYR IV PRN; -CEFU250T15 PO; -EpHEDrine SULFATE 50MG/5ML SYR ONE; -EpHEDrine SULFATE INJ 50 MG/ML AMP IV PRN; -GLUC500T35 PO; -LEVO75TA PO; -LIDOCAINE HCL 2% 2 ML VIAL (20MG/ML) ONE; -METHPOW7; -METO-217 PO; -NEOMYCIN/POLYMYX/BACITR OINT 15 GM TUBE ONE; -ONDA4TAB46 PO; -POTA20TA16 PO; -PRAV20TA PO; -PROPOFOL IV EMULSION 10 MG/ML 20 ML VIAL IV ONE; -SODIUM CHLORIDE 0.9% 500ML 500 ML IV ONE; -SUCR1TAB PO; -ZOLE1INJ IV
[2017-10-07 17:37] LABS: BASO % 0.4 %; BASO ABS # 0.02 K/uL (0-0.2); COMPLETE YES; EOS % 0.4 %; HEMATOCRIT 37.2 % (37-47); IG% 0.2 %; LYMPH % 9.3 %; LYMPH ABS # 0.48 K/uL (1.2-3.4); MEAN CELL VOLUME 95.4 fL (80-100); MEAN CORPUSCULAR HEMOGLOBIN 30.8 pg (25-34); MEAN CORPUSCULAR HGB CONC 32.3 g/dl (32-36); MEAN PLATELET VOLUME 11.2 fL (7.4-10.4); NEUT % 84.7 %; PLATELET COUNT 221 K/uL (130-400); WHITE BLOOD COUNT 5.18 K/uL (4.8-10.8)
[2017-10-07 18:39] LABS: ALB/GLOB RATIO 1.2 (0.9-2); BLOOD UREA NITROGEN 17 mg/dl (7-18); BUN/CREATININE RATIO 20.5 (10-20); CALCIUM 7.8 mg/dl (8.5-10.1); CARBON DIOXIDE 22 mmol/L (21-32); CHLORIDE 103 mmol/L (98-107); CREATININE 0.83 mg/dl (0.60-1.20); GLUCOSE 155 mg/dl (70-99); POTASSIUM 4.4 mmol/L (3.5-5.1); SODIUM 135 mmol/L (136-145)
[2017-10-07 18:40] LABS: ALT/SGPT 15 U/L (12-78); AST/SGOT 10 U/L (15-37)
[2017-10-07 18:53] LABS: ALKALINE PHOSPHATASE 47 U/L (45-117); IMMUNOGLOBULN A 73.8 mg/dL (70-400); IMMUNOGLOBULN M 38.6 mg/dL (40-230)
[2017-10-11 10:22] LABS: FREE KAPPA 19.7 MG/L (3.3-19.4); FREE KAPPA/LAMBDA RATIO 1.25 (0.26-1.65); FREE LAMBDA 15.8 MG/L (5.7-26.3)
== END | disposition home or self-care (01) ==
LOC: C.LABBFT 13:13
PROVIDERS: ATTEND Internal Medicine
DX: C20 Malignant neoplasm of rectum (principal)

== ENCOUNTER → 2017-11-03 | Outpatient (CLI) | payer OTHER ==
[2017-11-03 18:07] LABS: BASO % 0.4 %; BASO ABS # 0.02 K/uL (0-0.2); COMPLETE YES; EOS % 0.4 %; HEMATOCRIT 37.8 % (37-47); IG% 0.2 %; LYMPH % 9.9 %; LYMPH ABS # 0.52 K/uL (1.2-3.4); MEAN CELL VOLUME 95.7 fL (80-100); MEAN CORPUSCULAR HEMOGLOBIN 31.1 pg (25-34); MEAN CORPUSCULAR HGB CONC 32.5 g/dl (32-36); MEAN PLATELET VOLUME 11.3 fL (7.4-10.4); MONO % 4.2 %; NEUT % 84.9 %; PLATELET COUNT 197 K/uL (130-400); RED BLOOD COUNT 3.95 M/uL (4.2-5.4); WHITE BLOOD COUNT 5.23 K/uL (4.8-10.8)
== END | disposition home or self-care (01) ==
LOC: C.LABBFT 12:49
PROVIDERS: ATTEND Internal Medicine Hematology & Oncology
DX: C20 Malignant neoplasm of rectum (principal)

== ENCOUNTER → 2017-12-22 | Outpatient (CLI) | payer OTHER ==
[~2017-12-22] MED LIST changes: +LISI-729 PO
[2017-12-22 13:55] VITALS: BP 190/78; PULSE 64; TEMP 36.6; O2SAT 95
--- NOTE | 2017-12-22 16:40 | Radiation Oncology Follow-Up ---
Radiation Oncology Follow-Up Date of Visit Dec 22, 2017. Reason For Visit Six-month follow-up Radiation Completion Date 05/17/17 Diagnosis (1) Adenocarcinoma of rectum Status: Resolved Onset Date: 02/15/2017 Stage: ll Permanent Comment: Diarrhea and rectal bleeding Status post colonoscopy and biopsy 02/09/2017 showing high-grade dysplasia suspicious for adenocarcinoma Status post transrectal resection 02/15/2017 Stage pT2 [id number] Plan for combined radiation and chemotherapy, chemotherapy comprised of Xeloda Status post completion of radiation therapy 05/17/2017. She received 5040 cGy. Dosage of Xeloda was adjusted due to side effect of diarrhea Last Edited By: Bhavani Woods on May 26, 2017 13:50 History of Present Illness Ms. Maciel presented with chronic diarrhea. Patient was receiving chemotherapy for multiple myeloma and it was initially thought that the chemotherapy was the causative factor for the recurrent diarrhea. However the chemotherapy was stopped but the diarrhea persisted. They therefore ordered a diagnostic CT scan of the abdomen and pelvis performed on 11/26/2016. This showed operative changes within the pelvis consistent with a prior bladder suspension type procedure. Sigmoid: Demonstrates a component of chronic sigmoid diverticulosis without evidence of diverticulitis. There was mild fatty infiltration of the liver. There was mild increase in fecal load within the ascending and transverse colon consistent with a component of fecal stasis. Small bowel appearance suggesting a mild neuritis. Patient had a repeat CT scan of the abdomen and pelvis without contrast on 12/08/2016 following an episode of vomiting. Again noted was mild fecal retention with no transitional zones indicating bowel obstruction. There was colonic diverticulosis but no acute peridiverticular inflammatory changes. The patient also underwent an upper GI endoscopy for hematemesis By Dr. Maier performed on 12/08/2016. This showed a normal esophagus with a small hiatus hernia. A nonbleeding gastric ulcer with visible vessel was appreciated. Patient continued to have issues with chronic diarrhea and bleeding. Therefore on 01/12/2017 the patient underwent a colonoscopy performed by Dr. Maier. This revealed a polypoid nonobstructing large mass noted in the rectum. The mass was non-circumferential and measured 5 cm in length. It measured 1 cm in thickness. No active bleeding was appreciated. Biopsies were taken. Nonbleeding internal hemorrhoids were found during retroflexion and were considered medium sized. Several randomized biopsies were taken from the colon. The pathology of the random biopsies revealed no diagnostic abnormality. The biopsies of the rectal mass revealed at least adenoma with high-grade dysplasia that was suspicious for well-differentiated invasive adenocarcinoma. Mismatch repair proteins were tested by IHC for Cm syndrome. Intact expression was noted for all 4 proteins and therefore were not consistent with microsatellite instability. Case: [id number]. Patient was subsequently seen at [facility] and evaluated by Dr. Garcia on 01/19/2017. He performed a rigid proctoscopy which demonstrated a tumor located 3 cm the anal verge in the posterior midline area that appeared friable and mobile. The tumor was approximately 2.5-3 cm in length and occupy 25% of the circumference of the rectum. He discussed 3 general options with the patient. One was to do nothing. Option 2 was to proceed with standard of care. He felt this would include an MRI for staging, CAT scan of the chest abdomen and pelvis, CEA level. He then suggested that we would recommend chemoradiation followed by an AP resection followed by additional chemotherapy. His third option was based on the fact that patient is partially dependent on additional support and would not likely be [facility] dependent and would need to go to a [facility] which she would like to avoid. He therefore suggested consideration of a transanal minimally invasive excision of the tumor to obtain full diagnosis and depth of invasion. If this was early stage disease surveillance could be followed. If there was locally advanced disease she would then be a candidate for chemoradiation as sole treatment followed by observation. After much discussion the patient opted to proceed with option 3. On 01/20/[address] scan of the chest without IV contrast was performed. This showed no evidence of pathologic adenopathy. 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 There were nonspecific tiny pulmonary nodules the largest of which measured 3 mm and was located within the left lower lobe. 3-6 month follow-up was recommended. They reviewed the CT scan from November 26 and felt this demonstrated a lower to mid-rectal circumferential mass spanning a length of at least 5.5 cm within the inferior margin extending to the level of the levator ani muscles. On 02/15/2017 patient underwent a transanal excision of a large polypoid rectal tumor. This confirmed a low-grade, well-differentiated to moderately differentiated adenocarcinoma. The tumor measured 6.5 x 5.3 x 3.9 cm. The tumor invaded the muscularis propria the deep margin was involved by invasive carcinoma. There was suspicion for lymphovascular invasion. No entire intestinal/rectal wall was present for the tumor was felt to be at least a pathologic stage T2 p Nx. Accession #: [id number]. The patient did develop some complaint of abdominal pain postoperatively and on 02/17/2017 underwent an abdominal and pelvic CT scan without contrast. There was complex free fluid within the pelvic cul-de-sac versus the less likely possibility of a low- density mass. There was possibility of hemorrhagic fluid within the pelvic cul- de-sac. There are otherwise no acute processes noted in the abdomen or pelvis. Postoperative changes were noted including bladder suspension procedure and inferior vena caval stent placement which were both stable. There was a nonobstructive bowel pattern appreciated. Patient return to discuss these findings with Dr. Garcia on 03/02/2017. He again discussed 3 options with the patient. Option one was 2 proceed with no further interventions with the significant likelihood of local recurrence given the positive deep margin. Option to would be to undergo chemoradiation in order to achieve local control and allowing her to have the best quality of life for the remainder of her survival. Option 3 would be to undergo chemotherapy only. The patient who has been under the care of Dr. Marquez for her multiple myeloma also saw him for discussion of treatment options for her recently diagnosed anal cancer. She saw him on 03/08/2017. He discussed with her the possibility of chemoradiation. He reviewed the chemotherapy option consisting of a single agent, Xeloda, with a lower dose given twice a day. Based on tolerance the dose would be adjusted accordingly. He also suggested receiving chemotherapy only on the days that she receives her radiation that is Wednesday through Wednesday. He reviewed with her the potential risks and side effects. In the patient agreed. We will therefore asked to see her in referral. It is for this reason the patient was seen today. Status post completion of combined radiation and chemotherapy. Radiation completed 05/17/2017. She received 5040 cGy. Interim History She was doing well until August. She began to pass tarry colored stools. She presented to the emergency room for evaluation. She had some mid abdominal and epigastric discomfort. She has routine laboratory studies because of her history of myeloma. She had had a hemoglobin 08/13/2017 at 11.5. When she was in the emergency room on August 25 her hemoglobin was found to be 8.1. She was admitted and transfused. She was placed on Protonix and has not have any further bleeding. A colonoscopy was performed following admission. This showed diverticulosis in the sigmoid colon. Post Mucosectomy scar in the rectum. There is no evidence of any recurrence of the rectal carcinoma. Her appetite is good and she has had a steady weight gain since completing her combined radiation and chemotherapy. Allergies Coded Allergies: Aspartame (Verified Allergy, Mild, HEADACHES, N/V, 09/13/17) Shellfish (Verified Allergy, Mild, HEADACHE AND N/V, 09/13/17) Ciprofloxacin (Verified Allergy, Unknown, ELEVATED BLOOD PRESSURE, 08/25/17 ) Iodinated Diagnostic Agents (Verified Allergy, Unknown, R/T SHELLFISH ALLERGY, 08/25/17) Nitrofurantoin (Verified Allergy, Unknown, GI UPSET AND ABDOMINAL PAIN/ SWELLING, 08/25/17) Quinolones (Verified Allergy, Unknown, CIPRO - ELEVATED BLOOD PRESSURE, ) Sulfa Antibiotics (Verified Allergy, Unknown, UNKNOWN - PT STATES DOES NOT REMEMBER, 08/25/17) Home Medications Scheduled Amiodarone Hcl (Cordarone), 100 MG PO DAILY Cholecalciferol (Vitamin D3), 1 TAB PO DAILY Cinacalcet (Sensipar), 30 MG PO DAILY Cyanocobalamin (Vitamin B12), 1 TAB PO DAILY Ferrous Gluconate (Ferrous Gluconate), 324 MG PO DAILY Glucosamine Sulfate (Glucosamine), 2 CAP PO DAILY Levothyroxine Sodium (Levothyroxine Sodium), 1 TAB PO DAILY Lisinopril (Zestril), 5 MG PO BID Metoprolol Succinate (Metoprolol Succinate ER), 1 TAB PO DAILY Pantoprazole (Protonix), 40 MG PO BID Potassium Chloride (Klor-Con M20), 1 TAB PO DAILY Prednisone (Prednisone), 5 MG PO DAILY Zoledronic Acid (Zometa), 1 DOSE IV DIRECTED Scheduled PRN Acetaminophen (Tylenol), 1-2 TAB PO Q6H PRN for Pain Lorazepam (Ativan), 0.5-1 TAB PO DAILY PRN for Anxiety Methylcellulose (Laxative) (Citrucel Fiber Laxative), 1 DOSE PO DAILY PRN for Constipation Ondansetron Hcl (Zofran), 8 MG PO Q6H PRN for Nausea Polyethylene (Miralax), 1 DOSE PO DAILY PRN for Constipation Sucralfate (Carafate), 1 GM PO QID PRN for Indigestion Review of Systems Gastrointestinal: Symptoms: WNL GI Comments: Constipation from dehydration Oral: Symptoms: No Problems Respiratory: Symptoms: WNL Urinary: Symptoms: WNL Comments: Just finished being treated for UTI Skin: Symptoms: No Problems Physical Exam Vital Signs Date Time Temp Pulse Resp B/P (MAP) Pulse Ox O2 Delivery O2 Flow Rate FiO2 12/22/17 13:55 36.6 64 16 190/78 95 Fatigue: None General Appearance: no apparent distress Eyes: normal inspection, EOMI ENT: normal ENT inspection, hearing grossly normal Respiratory/Chest: lungs clear, no respiratory distress, no accessory muscle use Cardiovascular: regular rate, rhythm, no gallop, no murmur Abdomen: non tender, soft, no organomegaly Extremities: no pedal edema Neurologic/Psychiatric: no motor/sensory deficits, alert, normal mood/affect Skin: warm/dry Pain Management Patient Reports Pain: No Pain Management Plan She denies pain therefore requires no pain management. Laboratory Laboratory Results: were reviewed Laboratory Comments: Reviewed with the patient and discussed in the interim history. Pathology Pathology Results: not applicable Imaging Imaging Studies: were reviewed, and pertinent findings noted below Imaging Comments She underwent a colonoscopy 08/25/2017. This was reviewed with her. There are no signs of any recurrence of the rectal carcinoma. She had a CAT scan of the chest, abdomen, and pelvis while hospitalized. There are no findings of adenopathy or signs of metastatic disease. Patient: CHATO MACIEL Address1: [facility] Rec: [id number] Address2: [address] [place] [address] Acct ID: [id number] [facility] Zip: [place] [id number] Date: 1935 Sex: F Room/Bed: Ref Phy: Mack Mancilla D.O. SC: RUTHIE Att Phy: Alexandr Garcia M.D. Report #: [id number] Beth Phy: Mack Mancilla D.O. Test: CXWO Admit Phy: Stores Assistant: ALBINO Interpreting Phy: Miguel Luciano M.D. Diagnosis: RECTAL CA Ordering Phy: Alexandr Garcia M.D. Service Date: 09/16/17 Admit Date: 09/16/17 MNE: [id number] CONF: DICTATED BY: Miguel Luciano M.D.]] CC: Alexandr Garcia M.D., Michael, D.O. Endcc: [~ rep ct add3]] (CHEST) THORAX WITHOUT CT DOSE: 666.56 mGycm HISTORY: Carcinoma RECTAL CA TECHNIQUE: Multiaxial CT images of the chest were performed without contrast. A dose lowering technique was utilized adhering to the principles of ALARA. COMPARISON: 01/20/2017 FINDINGS: No change compared to the prior study. The micronodularity of the mid to lower lung regions is nonprogressive. Baseline emphysematous change is stable. Moderate dilatation of the root of the aorta is unaltered with a greatest dimension of 4.2 cm. There are no new or interval findings. Several small calcified mediastinal and/or hilar nodes are considered benign. These are unchanged. There is no evidence for new or interval process. IMPRESSION: Stable exam including unchanging minimal micronodularity . No change from the prior exam. Unchanging distention of the root of the aorta. A routine 6-12 months follow-up is suggested The above report was generated using voice recognition software. It may contain grammatical, syntax or spelling errors. Electronically signed by: Miguel Luciano M.D. 09/16/2017 1:41 PM Dictated Date/Time: 09/16/2017 1:25 PM Patient: CHATO MACIEL Address1: [facility] Rec: [id number] Address2: [address] [place] [address] Acct ID: [id number] [facility] Zip: [place] [address] Date: 1935 Sex: F Room/Bed: Ref Phy: Mack Mancilla D.O. SC: RUTHIE Att Phy: Alexandr Garcia M.D. Report #: [id number] Beth Phy: Mack Mancilla D.O. Test: APWOR Admit Phy: Stores Assistant: ALBINO Interpreting Phy: Sridhar Porter M.D. Diagnosis: RECTAL CA Ordering Phy: Alexandr Garcia M.D. Service Date: 09/16/17 Admit Date: 09/16/17 MNE: [id number] CONF: DICTATED BY: Sridhar Porter M.D.]] CC: Alexandr Garcia M.D., Michael, D.O. [facility]: [~ rep ct add3]] CT SCAN OF THE ABDOMEN AND PELVIS WITHOUT IV CONTRAST CLINICAL HISTORY: Rectal carcinoma. Melenotic stool. COMPARISON STUDY: Abdominal CT dated 02/17/2017. TECHNIQUE: CT scan of the abdomen and pelvis is performed from the lung bases to the proximal femora. Images are reviewed in the axial, sagittal, and coronal planes. IV contrast was not administered for this examination as per the referring clinician. Note that the examination was performed in suboptimal fashion without IV contrast. Oral contrast was utilized. The examination is also degraded by cachexia and a paucity of intraperitoneal fat. A dose lowering technique was utilized adhering to the principles of ALARA. FINDINGS: Lung bases: The patient is status post midline sternotomy. The heart is mildly enlarged and without pericardial effusion. There is diminished attenuation of the cardiac blood pool as compared to the myocardium suggesting anemia. The coronary arteries are densely calcified. There is bibasilar scarring versus atelectasis. Emphysema is suspected. No airspace consolidation or pleural effusion is identified. Liver: The unenhanced liver is normal in size, contour, and attenuation. There is no intrahepatic biliary ductal dilatation. Gallbladder: Unremarkable. Spleen: Normal in size and attenuation. There are calcified splenic granulomas. Pancreas: The unenhanced pancreas is atrophic and grossly unremarkable. Adrenal glands: Unremarkable. Kidneys: The unenhanced kidneys are atrophic and without hydronephrosis. There are no renal calculi identified. A punctate cortical calcification is noted in the left upper pole. There is no evidence of contour deforming renal mass lesion. Abdominal vasculature: The abdominal aorta is normal in course and caliber noting advanced atherosclerotic calcification. An IVC filter is in place. Bowel: There is moderate diverticulosis of left colon without CT evidence of acute diverticulitis. Moderate colonic fecal retention is observed. No bowel obstruction is seen. Mild rectal wall thickening is questioned. The appendix is not identified and reported surgically absent. Peritoneum: There is no intraperitoneal free air or abdominal ascites. Lymphadenopathy: None. Pelvic viscera: The bladder is normal as visualized. The uterus is surgically absent. No adnexal lesion is seen. Findings suggest pelvic floor prolapse. Skeletal structures: The skeletal structures are osteopenic. There is advanced lumbar spondylosis and scoliosis. A moderate compression deformity is noted in T12. No lytic or blastic lesions are seen. Soft tissues: The patient is cachectic. IMPRESSION: 1. Suboptimal examination without IV contrast. The examination is also degraded by a paucity of intraperitoneal fat 2. Question mild rectal wall thickening. Clinical correlation will be required. No significant perirectal inflammation is seen. 3. Moderate colonic diverticulosis without CT evidence of acute diverticulitis. 4. Moderate constipation. 5. Additional findings as above. Electronically signed by: Sridhar Porter M.D. 09/16/2017 1:38 PM Dictated Date/Time: 09/16/2017 1:31 PM Assessment & Plan Plan: Continue regular follow-up with Dr. Marquez and Dr. Woody. In reviewing the report from her colonoscopy she does not require any further recheck scopings unless she develops new symptoms. We asked her to return to our office in 1 year. She may call if she has any questions or concerns in the interim. Total Time In Follow-Up I spent 20 minutes speaking to the patient performing examination. I spent 15 minutes reviewing information in completing this note. Copy To Charles Marquez D.O.; Hussain Woody M.D.
== END | disposition home or self-care (01) ==
LOC: C.ONC 13:47
PROVIDERS: ATTEND Physician Assistant Medical
DX: Z08 Encounter for follow-up examination after completed treatment for malignant neoplasm (principal); Z92.3 Personal history of irradiation; Z85.048 Personal history of other malignant neoplasm of rectum, rectosigmoid junction, and anus

== ENCOUNTER → 2018-01-04 | Outpatient (CLI) | payer OTHER ==
[2018-01-04 13:20] LABS: BASO % 0.2 %; BASO ABS # 0.01 K/uL (0-0.2); EOS % 0.5 %; EOS ABS # 0.03 K/uL (0-0.5); HEMATOCRIT 39.1 % (37-47); HEMOGLOBIN 13.1 g/dL (12.0-16.0); IG# 0.01 K/uL (0.00-0.02); LYMPH % 8.3 %; LYMPH ABS # 0.47 K/uL (1.2-3.4); MEAN CELL VOLUME 91.6 fL (80-100); MEAN CORPUSCULAR HEMOGLOBIN 30.7 pg (25-34); MEAN CORPUSCULAR HGB CONC 33.5 g/dl (32-36); MEAN PLATELET VOLUME 11.4 fL (7.4-10.4); MONO % 5.5 %; MONO ABS # 0.31 K/uL (0.11-0.59); NEUT % 85.3 %; NEUT ABS # 4.82 K/uL (1.4-6.5); PLATELET COUNT 212 K/uL (130-400); RED CELL DISTRIBUTION WIDTH CV 14.6 % (11.5-14.5); RED CELL DISTRIBUTION WIDTH SD 48.6 fL (36.4-46.3); WHITE BLOOD COUNT 5.65 K/uL (4.8-10.8)
[2018-01-04 13:54] LABS: ALBUMIN 3.9 gm/dl (3.4-5.0); AST/SGOT 11 U/L (15-37); BLOOD UREA NITROGEN 18 mg/dl (7-18); CALCIUM 8.6 mg/dl (8.5-10.1); CARBON DIOXIDE 22 mmol/L (21-32); CREATININE 0.63 mg/dl (0.60-1.20); GLUCOSE 84 mg/dl (70-99); POTASSIUM 3.7 mmol/L (3.5-5.1); SODIUM 136 mmol/L (136-145)
[2018-01-04 14:13] LABS: ALKALINE PHOSPHATASE 50 U/L (45-117); ALT/SGPT 17 U/L (12-78); TOTAL PROTEIN 7.1 gm/dl (6.4-8.2)
== END | disposition home or self-care (01) ==
LOC: C.LAB1850 11:55
PROVIDERS: ATTEND Internal Medicine Hematology & Oncology
DX: C20 Malignant neoplasm of rectum (principal)

== ENCOUNTER → 2018-03-22 | Outpatient (CLI) | payer OTHER ==
[~2018-03-22] MED LIST changes: +ONDA-170 PO; -ONDA8TAB6 PO
== END | disposition home or self-care (01) ==
LOC: C.LABSPEC 03-18 16:45
PROVIDERS: ATTEND Internal Medicine Hematology & Oncology
DX: R10.11 Right upper quadrant pain (principal)

== ENCOUNTER → 2018-03-23 | Outpatient (CLI) | payer OTHER ==
--- NOTE | 2018-03-23 10:59 | DIAGNOSTIC IMAGING REPORT ---
GALLBLADDER-ABD LIMITED CLINICAL HISTORY: 82 years-old Female presenting with RUQ ABDOMINAL PAIN. TECHNIQUE: Real-time grayscale and limited color Doppler ultrasound imaging of the abdomen limited to the right upper quadrant was performed. COMPARISON: CT from 09/16/2017. FINDINGS: Pancreas: Atrophic pancreatic parenchyma. Liver: Hyperechogenic parenchyma with heterogeneous echotexture, likely indicating fibrosis or steatosis. The liver measures 13.3 cm in maximal sagittal dimension. No sonographic evidence of hepatic mass. Main portal vein patent with normal directional flow. Biliary: No intrahepatic biliary ductal dilatation. Common bile duct measures up to 4 mm in diameter. Gallbladder: Mildly distended gallbladder. No apparent wall thickening or gallstones. No pericholecystic fluid or inflammatory change. Nonspecific diffuse tenderness to sonographic probe compression not limited to the right upper quadrant. Right kidney: Mild right pelviectasis versus an extrarenal pelvis. Otherwise normal right kidney. Ascites: None. Other: None. IMPRESSION: 1. No cholelithiasis or biliary ductal dilatation. 2. Distention of the gallbladder. This may be physiologic. Nonspecific diffuse tenderness to sonographic probe compression was reported. If there is continuing clinical concern for acute or chronic cholecystitis, HIDA scan with EF could be obtained. 3. Heterogeneous liver parenchyma could indicate underlying steatosis or fibrosis. Electronically signed by: Don Garza M.D. 03/23/2018 10:58 AM Dictated Date/Time: 03/23/2018 10:54 AM
== END | disposition home or self-care (01) ==
LOC: C.ULTR 10:10
PROVIDERS: ATTEND Internal Medicine
DX: R10.11 Right upper quadrant pain (principal)

== ENCOUNTER → 2018-03-29 | Outpatient (CLI) | payer OTHER ==
[2018-03-29 15:34] LABS: BASO % 0.2 %; BASO ABS # 0.01 K/uL (0-0.2); EOS % 0.2 %; EOS ABS # 0.01 K/uL (0-0.5); HEMATOCRIT 39.2 % (37-47); HEMOGLOBIN 13.8 g/dL (12.0-16.0); LYMPH % 8.7 %; LYMPH ABS # 0.44 K/uL (1.2-3.4); MEAN CELL VOLUME 90.3 fL (80-100); MEAN CORPUSCULAR HEMOGLOBIN 31.8 pg (25-34); MEAN CORPUSCULAR HGB CONC 35.2 g/dl (32-36); MEAN PLATELET VOLUME 10.2 fL (7.4-10.4); MONO % 8.5 %; MONO ABS # 0.43 K/uL (0.11-0.59); NEUT % 82.4 %; NEUT ABS # 4.19 K/uL (1.4-6.5); PLATELET COUNT 227 K/uL (130-400); RED CELL DISTRIBUTION WIDTH CV 13.1 % (11.5-14.5); RED CELL DISTRIBUTION WIDTH SD 43.4 fL (36.4-46.3); WHITE BLOOD COUNT 5.08 K/uL (4.8-10.8)
[2018-03-29 16:02] LABS: ALBUMIN 4.1 gm/dl (3.4-5.0); ALT/SGPT 16 U/L (12-78); AST/SGOT 12 U/L (15-37); BLOOD UREA NITROGEN 12 mg/dl (7-18); CALCIUM 8.4 mg/dl (8.5-10.1); CARBON DIOXIDE 25 mmol/L (21-32); CREATININE 0.65 mg/dl (0.60-1.20); GLUCOSE 93 mg/dl (70-99); SODIUM 132 mmol/L (136-145)
[2018-03-29 16:13] LABS: TOTAL PROTEIN 7.1 gm/dl (6.4-8.2)
[2018-03-29 16:14] LABS: ALKALINE PHOSPHATASE 48 U/L (45-117)
== END | disposition home or self-care (01) ==
LOC: C.LAB1850 14:26
PROVIDERS: ATTEND Internal Medicine
DX: R10.9 Unspecified abdominal pain (principal); E03.9 Hypothyroidism, unspecified; C20 Malignant neoplasm of rectum

== ENCOUNTER → 2018-04-01 | Outpatient (CLI) | payer OTHER ==
[~2018-04-01] MED LIST changes: +SINCALIDE INJ 1.3 MCG in SODIUM CHLORIDE 0.9% 100ML 100 ML IV ONE
--- NOTE | 2018-04-01 15:28 | DIAGNOSTIC IMAGING REPORT ---
HEPATOBILIARY EF IMAGING CLINICAL HISTORY: 82 years-old Female presenting with R93.2 Abnormal gallbladder ultrasound with [id number]. TECHNIQUE: Dynamic imaging of the gallbladder was initiated 65 minutes after administration of 4.10 mCi of technetium 99m Choletec. Imaging was obtained every 5 minutes over a span of 40 minutes. 1.3 mcg of sincalide was injected 5 minutes prior to the start of imaging. The gallbladder ejection fraction was calculated. COMPARISON: Ultrasound from 03/23/2018. FINDINGS: Hepatobiliary scan demonstrates normal radiotracer uptake by the liver and normal excretion into the common duct and gallbladder. Expected radiotracer activity within small bowel indicates an unobstructed common duct. The gallbladder subsequently demonstrates normal contraction with decreased radiotracer activity. Gallbladder ejection fraction measures 90%. Reference range: Unequivocally normal: Greater than 50% Unequivocally abnormal: Less than 35% IMPRESSION: 1. Normal gallbladder ejection fraction. No evidence of chronic cholecystitis. Electronically signed by: Don Garza M.D. 04/01/2018 3:26 PM Dictated Date/Time: 04/01/2018 3:26 PM
== END | disposition home or self-care (01) ==
LOC: C.NUCL 12:46
PROVIDERS: ATTEND Internal Medicine
DX: R93.2 Abnormal findings on diagnostic imaging of liver and biliary tract (principal)

== ENCOUNTER → 2018-06-29 | Outpatient (CLI) | payer OTHER ==
[~2018-06-29] MED LIST changes: +CRD30 PO; +DILT120C68 PO; +LSX20 PO; +LVNIS30 SQ; -MCRK20 PO; -METHPOW7 PO; +POTA-639 PO; -SINCALIDE INJ 1.3 MCG in SODIUM CHLORIDE 0.9% 100ML 100 ML IV ONE; +TRAM-10 PO; +ZOLE1INJ IV; -[UNRECOGNIZED DRUG - CODE] IV
[2018-06-29 10:03] LABS: HEMATOCRIT 30.6 % (37-47); MEAN CORPUSCULAR HEMOGLOBIN 31.1 pg (25-34); MEAN CORPUSCULAR HGB CONC 32.7 g/dl (32-36); MEAN PLATELET VOLUME 10.9 fL (7.4-10.4); PLATELET COUNT 215 K/uL (130-400); RED CELL DISTRIBUTION WIDTH CV 15.1 % (11.5-14.5); RED CELL DISTRIBUTION WIDTH SD 52.5 fL (36.4-46.3); WHITE BLOOD COUNT 4.07 K/uL (4.8-10.8)
== END | disposition home or self-care (01) ==
LOC: C.LABSPEC 08:35
PROVIDERS: ATTEND Internal Medicine
DX: I10 Essential (primary) hypertension (principal)

== ENCOUNTER → 2018-07-04 | Outpatient (CLI) | payer OTHER | END | disposition home or self-care (01) | LOC: C.RDSM 09:26 | PROVIDERS: ATTEND Physical Medicine & Rehabilitation Sports Medicine | DX: Z96.642 Presence of left artificial hip joint (principal); M25.552 Pain in left hip ==

== ENCOUNTER → 2018-07-04 | Outpatient (CLI) | payer OTHER ==
[2018-07-04 12:20] LABS: BASO % 0.1 %; BASO ABS # 0.01 K/uL (0-0.2); EOS % 0.3 %; EOS ABS # 0.02 K/uL (0-0.5); HEMATOCRIT 32.9 % (37-47); IG# 0.02 K/uL (0.00-0.02); LYMPH % 3.2 %; LYMPH ABS # 0.23 K/uL (1.2-3.4); MEAN CELL VOLUME 93.7 fL (80-100); MEAN CORPUSCULAR HEMOGLOBIN 31.3 pg (25-34); MEAN CORPUSCULAR HGB CONC 33.4 g/dl (32-36); MEAN PLATELET VOLUME 10.4 fL (7.4-10.4); MONO % 6.1 %; MONO ABS # 0.44 K/uL (0.11-0.59); NEUT ABS # 6.54 K/uL (1.4-6.5); PLATELET COUNT 241 K/uL (130-400); RED CELL DISTRIBUTION WIDTH CV 14.9 % (11.5-14.5); WHITE BLOOD COUNT 7.26 K/uL (4.8-10.8)
[2018-07-04 13:03] LABS: ALBUMIN 3.5 gm/dl (3.4-5.0); ALKALINE PHOSPHATASE 65 U/L (45-117); ALT/SGPT 18 U/L (12-78); AST/SGOT 11 U/L (15-37); BLOOD UREA NITROGEN 13 mg/dl (7-18); CALCIUM 8.1 mg/dl (8.5-10.1); CARBON DIOXIDE 23 mmol/L (21-32); CREATININE 0.68 mg/dl (0.60-1.20); GLUCOSE 83 mg/dl (70-99); POTASSIUM 4.3 mmol/L (3.5-5.1); SODIUM 127 mmol/L (136-145); TOTAL PROTEIN 6.4 gm/dl (6.4-8.2)
== END | disposition home or self-care (01) ==
LOC: C.LAB1850 11:09
PROVIDERS: ATTEND Internal Medicine Hematology & Oncology
DX: C20 Malignant neoplasm of rectum (principal)

== ENCOUNTER → 2018-07-05 | Outpatient (CLI) | payer OTHER | END | disposition home or self-care (01) | LOC: C.LABSPEC 12:54 | PROVIDERS: ATTEND Internal Medicine | DX: R35.0 Frequency of micturition (principal); R60.0 Localized edema; R74.8 Abnormal levels of other serum enzymes ==

== ENCOUNTER → 2018-07-14 | Outpatient (CLI) | payer OTHER ==
[2018-07-14 10:02] LABS: BLOOD UREA NITROGEN 10 mg/dl (7-18); CALCIUM 7.5 mg/dl (8.5-10.1); CARBON DIOXIDE 21 mmol/L (21-32); CREATININE 0.51 mg/dl (0.60-1.20); GLUCOSE 82 mg/dl (70-99); POTASSIUM 3.7 mmol/L (3.5-5.1); SODIUM 131 mmol/L (136-145)
== END | disposition home or self-care (01) ==
LOC: C.LABSPEC 08:46
PROVIDERS: ATTEND Internal Medicine
DX: F41.9 Anxiety disorder, unspecified (principal)

== ENCOUNTER 2019-10-20 04:21 | Observation (INO) ==
[2019-10-20] MEDS: SODIUM CHLORIDE 0.9% 1000ML 1,000 ML IV SCH ×2 (05:08→20:25)
[2019-10-20 05:16] LABS: Basophils # (auto) 0.03 K/uL (0-0.2); Basophils % (auto) 0.4 %; Eosinophils # (auto) 0.05 K/uL (0-0.5); Eosinophils % (auto) 0.6 %; Hematocrit (blood only) 36.2 % (37-47); Hemoglobin 12.5 g/dL (12.0-16.0); Immature Granulocytes # (auto) 0.03 K/uL (0.00-0.02); Immature Granulocytes % (auto) 0.4 %; Lymphocytes # (auto) 0.71 K/uL (1.2-3.4); Lymphocytes % (auto) 8.6 %; Mean Corpuscular Hemoglobin 31.6 pg (25-34); Mean Corpuscular Hgb Conc 34.5 g/dL (32-36); Mean Corpuscular Volume 91.4 fL (80-100); Mean Platelet Volume 10.3 fL (7.4-10.4); Monocytes # (auto) 0.87 K/uL (0.11-0.59); Monocytes % (auto) 10.6 %; Neutrophils # (auto) 6.52 K/uL (1.4-6.5); Neutrophils % (auto) 79.4 %; Platelet Count 196 K/uL (130-400); RDW Coefficient of Variation 13.8 % (11.5-14.5); RDW Standard Deviation 46.4 fL (36.4-46.3); Red Blood Count 3.96 M/uL (4.2-5.4); White Blood Count 8.21 K/uL (4.8-10.8)
[2019-10-20 05:34] LABS: Alanine Aminotransferase 16 U/L (12-78); Albumin Level 3.5 gm/dl (3.4-5.0); Aspartate Aminotransferase 12 U/L (15-37); BUN Creatinine Ratio 20.4 (10-20); Blood Urea Nitrogen 13 mg/dl (7-18); Carbon Dioxide 23 mmol/L (21-32); Chloride 105 mmol/L (98-107); Est GFR (African American) 94.6; Est GFR (Non-African American) 81.6; Glucose 99 mg/dl (70-99); Lipase 90 U/L (73-393); Magnesium 1.9 mg/dl (1.8-2.4); Potassium 3.2 mmol/L (3.5-5.1); Sodium 136 mmol/L (136-145)
[2019-10-20 05:39] LABS: Influenza A virus by PCR Neg for Influ A (Neg); Influenza B virus by PCR Neg for Influ B (Neg)
[2019-10-20] MEDS ORDERED: ALBUT/IPRATROP 3MG/0.5MG NEB 3 ML VIAL NEB STA (05:39)
[2019-10-20 05:40] LABS: Albumin Globulin Ratio 1.1 (0.9-2); Alkaline Phosphatase 57 U/L (45-117); Bilirubin,Total 0.7 mg/dl (0.2-1); Globulin 3.3 gm/dl (2.5-4.0); NT Pro B Type Natriuretic Pept 1238 pg/ml (0-1800); Total Protein 6.8 gm/dl (6.4-8.2); Troponin I < 0.015 ng/ml (0-0.045)
--- NOTE | 2019-10-20 06:05 | Emergency Department Note ---
History of Present Illness General Chief complaint: Congestion Stated complaint: CHEST CONGESTION, CHEST PAIN, FEVER Time Seen by Provider: 10/20/19 04:31 Source: patient Mode of arrival: EMS Limitations: no limitations History of Present Illness Provider complaint: cough, weakness Onset (ago): day(s) 5 Severity: moderate Maximum Pain Intensity: 0 Relieved By: + none Exacerbated By: + movement Associated symptoms: + cough, + fever/chills, + malaise and + shortness of breath This is an 84 yo female complaining of worsening cough, fatigue, decreased appetite, rhinorrhea, and body aches over the last 5 days. Pt also states she has an intermittent diarrhea for several weeks due to a recent medication change. Pt denies any smoking hx, or hx of other pulmonary problems. States she did have her flu shot and has had a pneumonia shot. Pt states she hasn't had any vomiting. States despite cough she isn't having chest pain. States she feels out of breath with exertion. Denies any overt sick contact however pt is from [facility]. States she does take lasix for leg swelling. Denies hx of CHF. States she has been taking Mucinex to help with her cough. Son states her in May and she has had difficulty over the holidays due to this. Home Medications Home Medications Medication Instructions Recorded Confirmed Type acetaminophen 500 mg PO Q4 PRN #0 tab 09/13/17 10/20/19 History cholecalciferol (vitamin D3) 1,000 unit PO DAILY #0 tab 09/13/17 10/20/19 History [Vitamin D3] cyanocobalamin (vitamin B-12) 1,000 mcg PO DAILY #0 09/13/17 10/20/19 History [Vitamin B-12] glucosamine sulfate [Glucosamine] 1,000 mg PO DAILY #0 09/13/17 10/20/19 History levothyroxine 75 mcg PO DAILY #0 09/13/17 10/20/19 History ondansetron 8 mg PO TID PRN #0 tab 09/13/17 10/20/19 History pantoprazole [Protonix] 40 mg PO DAILY #0 tab 09/13/17 10/20/19 History polyethylene glycol 3350 [Miralax] 17 g PO DAILY PRN #0 09/13/17 10/20/19 History prednisone 5 mg PO DAILY #0 tab 09/13/17 10/20/19 History sucralfate 1 g PO QID PRN #0 tab 09/13/17 10/20/19 History potassium chloride 20 meq PO DAILY #0 tab 05/14/18 10/20/19 History ferrous sulfate 325 mg (65 mg 325 mg PO DAILY 03/08/19 10/20/19 History iron) tablet cinacalcet 30 mg tablet 30 mg PO .COMPLEX tab 06/23/19 10/20/19 History metoprolol succinate 25 mg 25 mg PO DAILY 07/27/19 10/20/19 History tablet,extended release 24 hr lisinopril 2.5 mg tablet 2.5 mg PO DAILY #30 tab 08/21/19 10/20/19 Rx lorazepam 0.5 mg tablet 0.5 mg PO Q8H PRN 08/23/19 10/20/19 History tramadol 50 mg tablet 50 mg PO Q6H PRN 08/23/19 10/20/19 History amlodipine 5 mg tablet 5 mg PO DAILY #90 tab 09/01/19 10/20/19 Rx furosemide 20 mg tablet 20 mg PO .COMPLEX #30 tab 09/01/19 10/20/19 Rx buspirone 5 mg tablet 5 mg PO TID #90 tab 10/02/19 10/20/19 Rx amiodarone 200 mg tablet 100 mg PO DAILY #45 tab 10/10/19 10/20/19 Rx ascorbic acid (vitamin C) 250 mg 250 mg PO DAILY 10/10/19 10/20/19 History tablet amoxicillin 500 mg PO DIRECTED 10/20/19 10/20/19 History dextromethorphan-guaifenesin 1 tab PO Q12H PRN 10/20/19 10/20/19 History [Mucinex DM] hydrocortisone [Procto-Med HC] 1 applic OR BID PRN 10/20/19 10/20/19 History nitrofurantoin monohyd/m-cryst 100 mg PO DAILY 10/20/19 10/20/19 History nitroglycerin 0.4 mg SUBLINGUAL DIRECTED PRN 10/20/19 10/20/19 History sodium chloride [Aliyah 128] 1 drp OPHTHALMIC (EYE) BID 10/20/19 10/20/19 History Allergies Allergy/AdvReac Type Severity Reaction Status Date / Time aspartame Allergy Mild HEADACHES, Verified 10/20/19 05:01 N/V shellfish derived Allergy Mild HEADACHE Verified 10/20/19 05:01 AND N/V Cipro Allergy Unknown ELEVATED Verified 09/20/17 17:44 BLOOD PRESSURE ciprofloxacin Allergy Unknown ELEVATED Verified 10/20/19 05:01 BLOOD PRESSURE Iodinated Contrast Media Allergy Unknown R/T Verified 10/20/19 05:01 SHELLFISH ALLERGY nitrofurantoin Allergy Unknown NAUSEA,ABDOMINAL Verified 10/20/19 05:01 PAIN Quinolones Allergy Unknown CIPRO - Verified 10/20/19 05:01 ELEVATED BLOOD PRESSURE Sulfa (Sulfonamide Allergy Unknown UNKNOWN - Verified 10/20/19 05:01 Antibiotics) PT STATES DOES NOT REMEMBER Past Med/Surg History Medical History (Updated 10/21/19 @ 00:11 by Blossom Souza DO) Acute GI bleeding (Inactive 2017) Acute hip pain (Inactive) Recommend current treatment. Ice/heat, NSAIDs, PT as tolerated, WBAT with walker assistance. Okay from ortho standpoint for discharge when medically stable. Recommend following up in approximately 2-4 weeks for re-eval. Adenocarcinoma of rectum (Resolved 2017) "Diarrhea and rectal bleeding Status post colonoscopy and biopsy 02/09/2017 showing high-grade dysplasia suspicious for adenocarcinoma Status post transrectal resection 02/15/2017 Stage pT2 cN0M0 Plan for combined radiation and chemotherapy, chemotherapy comprised of Xeloda Status post completion of radiation therapy 05/17/2017. She received 5040 cGy. Dosage of Xeloda was adjusted due to side effect of diarrhea" On 05/26/17 13:31 Bhavani Woods wrote "Diarrhea and rectal bleeding Status post colonoscopy and biopsy 02/09/2017 showing high-grade dysplasia suspicious for adenocarcinoma Status post transrectal resection 02/15/2017 Stage pT2 cN0M0 Plan for combined radiation and chemotherapy, chemotherapy comprised of Xeloda Status post completion of radiation therapy 05/17/2017. She received 5040 cGy." On 03/16/17 13:26 Bhavani Woods wrote "Diarrhea and rectal bleeding Status post colonoscopy and biopsy 02/09/2017 showing high-grade dysplasia suspicious for adenocarcinoma Status post transrectal resection 02/15/2017 Stage pT2 cN0M0 Plan for combined radiation and chemotherapy, chemotherapy comprised of Xeloda" Anxiety Arthritis Atrial fibrillation with RVR Blood dyscrasia Cancer CHF (congestive heart failure) Chronic steroid use Chronic systolic heart failure (Inactive) Constipation (Inactive) Coronary artery disease (Chronic) DVT (deep venous thrombosis) (Inactive) Electrolyte abnormality Fatigue (Inactive) Gastric ulcer (Inactive 2014) Gastrointestinal disorder GI bleed [place] filter in place High cholesterol History of GI bleed History of parathyroid disease (Acute) History of recurrent UTI (urinary tract infection) Hx of deep venous thrombosis Hypertension (Chronic) Multiple myeloma (Chronic) Osteoporosis Thrombophlebitis Thyroid disease Urinary tract infection (Inactive) Surgical History (Updated 10/20/19 @ 18:52 by Rebekah Spann MD) History of appendectomy History of bilateral salpingo-oophorectomy History of left hip hemiarthroplasty History of rectal surgery S/P CABG (coronary artery bypass graft) (Resolved 2006) Family History Other Coronary heart disease Heart failure Social History Preferred Language: Italian Communication Ability: Effective Sign Poster Required: No Beliefs That Will Affect Care: None marital status: Current Living Situation: Personal Care Facility current occupational status: retired 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 [employer] Other Information That Helps Us Care for You: No Feels Safe at Home: Yes Safety Concerns: Feels Safe At This Time Smoking Status: Never smoker Second Hand Exposure: No ; Hx Alcohol Use: No Hx Substance Use: No Review of Systems See HPI for pertinent positives & negatives. and A total of 10 systems reviewed and were otherwise negative Physical Exam Vital Signs Vital Signs - 24 hr 10/20/19 04:26 10/20/19 04:36 10/20/19 05:00 Temperature 36.8 C Temperature Source Oral Pulse Rate 75 73 70 Pulse Rate [Apical] Pulse Rate from SpO2 Sensor 73 69 Pulse Rhythm [Apical] Respiratory Rate 18 18 23 Respiratory Effort / Characteristics Non-Labored Spontaneous Respiratory Depth Normal Blood Pressure 174/74 H 161/70 H 160/67 H Blood Pressure [Left Arm] Blood Pressure Mean 107 108 111 Blood Pressure Mean [Left Arm] Blood Pressure Position [Left Arm] Pulse Oximetry 95 94 95 Oxygen Delivery Method Room Air Room Air Room Air Sepsis Recent Fever Within 48 Hours No Sepsis New/Unexplained Change in Mental Status No Sepsis Action Taken by Nursing No Action Required 10/20/19 05:30 10/20/19 05:52 10/20/19 06:00 Temperature 37.8 C H Temperature Source Pulse Rate 66 68 Pulse Rate [Apical] 69 Pulse Rate from SpO2 Sensor 66 Pulse Rhythm [Apical] Respiratory Rate 15 16 15 Respiratory Effort / Characteristics Non-Labored Spontaneous Respiratory Depth Blood Pressure 154/62 H 170/68 H Blood Pressure [Left Arm] Blood Pressure Mean 84 129 Blood Pressure Mean [Left Arm] Blood Pressure Position [Left Arm] Pulse Oximetry 93 97 Oxygen Delivery Method Room Air Sepsis Recent Fever Within 48 Hours Sepsis New/Unexplained Change in Mental Status Sepsis Action Taken by Nursing 10/20/19 07:00 10/20/19 07:21 10/20/19 07:30 Temperature 37.2 C Temperature Source Oral Pulse Rate 72 74 Pulse Rate [Apical] 71 Pulse Rate from SpO2 Sensor 70 74 Pulse Rhythm [Apical] Regular Respiratory Rate 15 18 Respiratory Effort / Characteristics Non-Labored Respiratory Depth Normal Blood Pressure 168/62 H 163/61 H Blood Pressure [Left Arm] 168/62 H Blood Pressure Mean 90 95 Blood Pressure Mean [Left Arm] 97 Blood Pressure Position [Left Arm] Lying Pulse Oximetry 94 97 97 Oxygen Delivery Method Room Air Room Air Sepsis Recent Fever Within 48 Hours Sepsis New/Unexplained Change in Mental Status Sepsis Action Taken by Nursing 10/20/19 08:00 10/20/19 08:01 Temperature Temperature Source Pulse Rate 73 72 Pulse Rate [Apical] Pulse Rate from SpO2 Sensor 73 72 Pulse Rhythm [Apical] Respiratory Rate 15 20 Respiratory Effort / Characteristics Respiratory Depth Blood Pressure 167/65 H Blood Pressure [Left Arm] Blood Pressure Mean 102 Blood Pressure Mean [Left Arm] Blood Pressure Position [Left Arm] Pulse Oximetry 93 96 Oxygen Delivery Method Sepsis Recent Fever Within 48 Hours Sepsis New/Unexplained Change in Mental Status Sepsis Action Taken by Nursing GENERAL: alert, ill appearing, well nourished, no distress, non-toxic EYE EXAM: normal conjunctiva, PERRL and EOM's grossly intact OROPHARYNX: no exudate, no erythema, lips, buccal mucosa, and tongue normal and mucous membranes are moist NECK: supple, no nuchal rigidity, no adenopathy, non-tender LUNGS: Clear to auscultation. Normal chest wall mechanics, no w/r/r, frequent c oarse cough during exam, no retractions, no nasal flaring HEART: no murmurs, S1 normal and S2 normal ABDOMEN: abdomen soft, non-tender, normo-active bowel sounds, no masses, no rebound or guarding. BACK: Back is symmetrical on inspection and there is no deformity, no midline tenderness, no CVA tenderness. SKIN: no rashes and no bruising UPPER EXTREMITIES: upper extremities are grossly normal. FROM, nml pulses b/l. LOWER EXTREMITIES: No pitting edema. FROM, nml pulses b/l. NEURO EXAM: Normal sensorium, cranial nerves II-XII grossly intact, normal speech, no gross weakness of arms, no gross weakness of legs. Gross sensation intact. Course Course 0711: Pt updated on results. Discussed condition. No options at [facility] for upgraded level of care. Pt unable to ambulate at bedside due to extreme weakness and fatigue. 0730: Discussed with Dr. Spann, hospitalist for additional evaluation and management. Consultations Consultation #1: Case discussed with Dr. Rebekah Spann for additional inpatient evaluation and management. Time: 07:30 Administered Medications Albuterol (Duoneb) 3 ml NEB QIDR [facility] Stop: 11/19/19 18:59 Last Admin: 10/20/19 19:49 Dose: 3 ml Documented by: [id number] Amiodarone HCl (Cordarone) 100 mg PO DAILY TERESA Stop: 11/19/19 10:50 Last Admin: 10/20/19 12:14 Dose: 100 mg Documented by: [id number] Amlodipine Besylate (Norvasc) 5 mg PO DAILY TERESA Stop: 11/19/19 10:50 Last Admin: 10/20/19 12:15 Dose: 5 mg Documented by: [id number] Ascorbic Acid (Vitamin C) 250 mg PO DAILY TERESA Stop: 11/19/19 10:49 Last Admin: 10/20/19 12:12 Dose: 250 mg Documented by: [id number] Buspirone HCl (Buspar) 5 mg PO TID TERESA Stop: 11/19/19 10:50 Last Admin: 10/20/19 20:18 Dose: 5 mg Documented by: [id number] Admin: 10/20/19 14:45 Dose: Not Given Documented by: [id number] Admin: 10/20/19 12:13 Dose: 5 mg Documented by: [id number] Cyanocobalamin (Vitamin B-12) 1,000 mcg PO DAILY TERESA Stop: 11/19/19 10:49 Last Admin: 10/20/19 12:12 Dose: 1,000 mcg Documented by: [id number] Ferrous Sulfate (Feosol) 325 mg PO DAILY TERESA Stop: 11/19/19 10:49 Last Admin: 10/20/19 12:11 Dose: 325 mg Documented by: [id number] Potassium Chloride/Sodium Chloride (Normal Saline W/20 Meq Kcl) 20 meq in 1,000 mls @ 80 mls/hr IV .[id number] TERESA Stop: 11/19/19 10:50 Last Admin: 10/20/19 23:48 Dose: 80 mls/hr Documented by: [id number] Infusion: 10/20/19 23:48 Dose: 80 mls/hr Documented by: [id number] Admin: 10/20/19 12:20 Dose: 80 mls/hr Documented by: [id number] Ioversol (Optiray 320 125ml) 118 ml IV ONCE PRN PRN Reason: Interaction Checking Stop: 10/24/19 06:31 Last Admin: 10/20/19 06:33 Dose: 118 ml Documented by: [id number] Levothyroxine Sodium (Synthroid) 75 mcg PO DAILYBB [facility] Stop: 11/19/19 10:50 Last Admin: 10/20/19 12:10 Dose: Not Given Documented by: [id number] Lisinopril (Zestril) 2.5 mg PO DAILY TERESA Stop: 11/19/19 10:50 Last Admin: 10/20/19 12:16 Dose: 2.5 mg Documented by: [id number] Metoprolol Succinate (Toprol Xl) 25 mg PO DAILY TERESA Stop: 11/19/19 10:50 Last Admin: 10/20/19 12:15 Dose: 25 mg Documented by: [id number] Miscellaneous (Order Awaiting Action) 1 ea N/A QS TERESA Stop: 11/19/19 15:59 Last Admin: 10/20/19 23:11 Dose: Not Given Documented by: [id number] Admin: 10/20/19 16:56 Dose: Not Given Documented by: [id number] Pantoprazole Sodium (Protonix) 40 mg PO DAILY TERESA Stop: 11/19/19 10:50 Last Admin: 10/20/19 12:15 Dose: 40 mg Documented by: [id number] Potassium Chloride (Klor-Con M20) 20 meq PO DAILY TERESA Stop: 11/19/19 10:50 Last Admin: 10/20/19 12:14 Dose: 20 meq Documented by: [id number] Prednisone (Prednisone) 5 mg PO DAILY TERESA Stop: 11/19/19 10:50 Last Admin: 10/20/19 12:15 Dose: 5 mg Documented by: [id number] Sodium Chloride (Aliyah 128 Oph) 1 drops OP BID TERESA Stop: 11/19/19 20:59 Last Admin: 10/20/19 20:19 Dose: Not Given Documented by: [id number] Vitamin D (Vitamin D3) 1,000 units PO DAILY TERESA Stop: 11/19/19 10:49 Last Admin: 10/20/19 12:13 Dose: 1,000 units Documented by: [id number] Discontinued Medications Albuterol (Duoneb) 3 ml NEB NOW STA Stop: 10/20/19 05:40 Last Admin: 10/20/19 05:50 Dose: 3 ml Documented by: [id number] Azithromycin (Zithromax) 500 mg PO NOW ONE Stop: 10/20/19 07:31 Last Admin: 10/20/19 07:45 Dose: 500 mg Documented by: [id number] Diphenhydramine HCl (Benadryl) 12.5 mg IV NOW STA Stop: 10/20/19 06:08 Last Admin: 10/20/19 06:16 Dose: 12.5 mg Documented by: [id number] Guaifenesin (Mucinex) 600 mg PO NOW STA Stop: 10/20/19 07:39 Last Admin: 10/20/19 07:45 Dose: 600 mg Documented by: [id number] Sodium Chloride (Nss 1000ml) 1,000 mls @ 250 mls/hr IV .Q4H TERESA Stop: 11/19/19 04:59 Last Admin: 10/20/19 20:25 Dose: Not Given Documented by: [id number] Infusion: 10/20/19 20:25 Dose: 0 mls/hr Documented by: [id number] Admin: 10/20/19 05:08 Dose: 250 mls/hr Documented by: [id number] Ceftriaxone Sodium (Rocephin) 1,000 mg in 50 mls @ 100 mls/hr IV NOW STA Stop: 10/20/19 07:32 Last Infusion: 10/20/19 07:48 Dose: 0 mls/hr Documented by: [id number] Admin: 10/20/19 07:18 Dose: 100 mls/hr Documented by: [id number] Methylprednisolone (Solumedrol) 40 mg IV NOW STA Stop: 10/20/19 06:08 Last Admin: 10/20/19 06:15 Dose: 40 mg Documented by: [id number] Potassium Chloride (Klor-Con M20) 40 meq PO NOW STA Stop: 10/20/19 07:10 Last Admin: 10/20/19 07:18 Dose: 40 meq Documented by: [id number] Medical Decision Making Differential Diagnosis Differential diagnoses includes but is not limited to pneumonia, bronchitis, COPD/Asthma exacerbation, pneumothorax, pulmonary embolism, congestive heart failure, acute coronary syndrome Medical Records Attestation: I reviewed the patient's medical records. Home Medications Current Medication List: was personally reviewed by me Laboratory Data Attestation: I reviewed the patient's lab results. Result diagrams: 10/20/19 05:00 10/20/19 05:00 Lab Results 10/20/19 10/20/19 10/20/19 Range/Units 04:59 05:00 05:00 WBC 8.21 (4.8-10.8) K/uL RBC 3.96 L (4.2-5.4) M/uL Hgb 12.5 (12.0-16.0) g/dL Hct 36.2 L (37-47) % MCV 91.4 (80-100) fL MCH 31.6 (25-34) pg MCHC 34.5 (32-36) g/dL RDW Std Deviation 46.4 H (36.4-46.3) fL RDW Coeff of Leland 13.8 (11.5-14.5) % Plt Count 196 (130-400) K/uL MPV 10.3 (7.4-10.4) fL Immature Gran % (Auto) 0.4 % Neut % (Auto) 79.4 % Lymph % (Auto) 8.6 % Beckham % (Auto) 10.6 % Eos % (Auto) 0.6 % Baso % (Auto) 0.4 % Immature Gran # (Auto) 0.03 H (0.00-0.02) K/uL Neut # (Auto) 6.52 H (1.4-6.5) K/uL Lymph # (Auto) 0.71 L (1.2-3.4) K/uL Beckham # (Auto) 0.87 H (0.11-0.59) K/uL Eos # (Auto) 0.05 (0-0.5) K/uL Baso # (Auto) 0.03 (0-0.2) K/uL Sodium 136 (136-145) mmol/L Potassium 3.2 L (3.5-5.1) mmol/L Chloride 105 (98-107) mmol/L Carbon Dioxide 23 (21-32) mmol/L Anion Gap 8.0 (3-11) BUN 13 (7-18) mg/dl Creatinine 0.62 (0.6-1.2) mg/dl Est Cr Clr Drug Dosing Not Reportable Est GFR ( Amer) 94.6 Est GFR (Non-Af Amer) 81.6 BUN/Creatinine Ratio 20.4 H (10-20) Glucose 99 (70-99) mg/dl Calcium 9.0 (8.5-10.1) mg/dl Magnesium 1.9 (1.8-2.4) mg/dl Total Bilirubin 0.7 (0.2-1) mg/dl AST 12 L (15-37) U/L ALT 16 (12-78) U/L Alkaline Phosphatase 57 (45-117) U/L Troponin I < 0.015 (0-0.045) ng/ml NT-Pro-B Natriuret Pep 1238 (0-1800) pg/ml Total Protein 6.8 (6.4-8.2) gm/dl Albumin 3.5 (3.4-5.0) gm/dl Globulin 3.3 (2.5-4.0) gm/dl Albumin/Globulin Ratio 1.1 (0.9-2) Lipase 90 (73-393) U/L Influenza Type A (PCR) Neg for Influ A (Neg) Influenza Type B (PCR) Neg for Influ B (Neg) Imaging Data My Impression: X-ray: I interpreted the following studies. Chest: A single view study of the chest was reviewed and was negative for cardiomegaly, effusion, pulmonary edema, or wide mediastinum. Sternotomy wires noted. Possible early right LL infiltrate. Radiologist's Impression: CT angio chest PE protocol CT DOSE: 293.71 mGy.cm HISTORY: Chest pain PE TECHNIQUE: Multiaxial CT images of the chest were performed following the intrav enous administration of contrast to evaluate the pulmonary arteries. Maximal intensity projection images were also obtained. A dose lowering technique was utilized adhering to the principles of ALARA. COMPARISON STUDY: 09/16/2017 FINDINGS: Thoracic aorta shows mild prominence of the aortic root at 4 cm. This is unchanged from the prior study. Pulmonary arterial structures enhance appropriately. Mild bibasilar atelectatic change. Potential minimal infiltrate right base with moderate peribronchial thickening. IMPRESSION: 1. No evidence for pulmonary embolus. 2. Mild bibasilar atelectasis with a small superimposed right basilar parenchymal infiltrative process. The above report was generated using voice recognition software. It may contain grammatical, syntax or spelling errors. Electronically signed by: Miguel Luciano M.D. 10/20/2019 7:07 AM Blood Pressure Blood Pressure Findings: Elevated blood pressure Blood Pressure Disposition: further management by hospitalist MDM Narrative Patient here ill-appearing despite reassuring labs. Chest x-ray with questionable early right-sided infiltrate. Given persistent symptoms, chronicity, and advanced age, as well as prior history of thromboembolic disease, patient sent for CT of the chest in addition which revealed a right- sided infiltrate. No accompanying PE or effusion, no pericardial effusion. P atient never hypoxic here, mildly tachypneic with conversation. Patient unable to stand at bedside due to significant weakness likely from a combination of illness for the last week as well as decreased oral intake and dehydration. Patient is typically ambulatory with her walker. No additional options for upgraded levels of care at the personal care facility where she currently resides. Case discussed with hospitalist for additional evaluation and management. Impression & Plan Pneumonia, Ambulatory dysfunction, Generalized weakness, Dyspnea Discharge Plan Visit Data *Final* Discharge Date/Time: 10/20/19 08:59 Chief Complaint: Congestion Stated Complaint: CHEST CONGESTION, CHEST PAIN, FEVER ED Provider: Blossom Souza Discharge Problem: Pneumonia, Ambulatory dysfunction, Generalized weakness, Dyspnea Patient Disposition: Admitted As Inpatient Discharge Instructions Interventions: ED Discharge Assessment Last Done: 10/20/19 08:59 Risk - CURB-65 Scoring CURB-65 Scoring Confusion: No BUN >19 mg/dl (>7 mmol/L): No Respiratory Rate > or = 30: No SBP <90 mmHg or DBP < or = 60 mmHg: No Age > or = 65: Yes CURB-65 Total Points: 1 CURB-65 Risk: Low Risk Pneumonia CURB-65 Interpretation: Score interpretation (as per derivation study): CURB-65 Mortality Score Risk Recommendations* 0 0.60% Low risk, consider home treatment 1 2.70% Low risk, consider home treatment 2 6.80% Short inpatient hospitalization or closely supervised outpt treatment 3 14.00% Severe pneumonia; hospitalize and consider admitting to intensive care 4 or 5 27.80% Severe pneumonia; hospitalize and consider admitting to intensive care Reference: 1. [place] BAIRES, et. al. Validity of Pneumonia Severity Index and CURB-65 Severity Scoring Systems in Community Acquired Pneumonia in an [place] Setting. The [facility] of Chest Disease & Allied Sciences. 2010; Vol 52. 2. Rema D, Elsie TE, Louie DM, et al. Prospective comparison of three validated prediction rules for prognosis in community-acquired pneumonia. AM. J. Med. 2005; 118(4): 384-92.doi: 10.1016/j.amjmed.2005.01.006. PMID [id number] 3. Martir PK, Moose AV, Anna SL, Cata DN, Vadim BD. Seveirty assessment criteria recommended by the [employer] (BTS) for communicty- acquired pneumonia (CAP) and older patients. Should SOAR (systolic blood pressure, oxygenation, age and respiratory rate) criteria be used in older people? A compilation study of two prospective coholrts. Age Ageing. 2006:35(3):286-91 4. Amanda A, Mary PP, Bi JM, et al. Validation of a predictive rule f or the management of community-acquired pneumonia. Eur Respir J. 2006:27(1):151-7. Discharge Problem: Pneumonia Qualifiers: Pneumonia type: due to unspecified organism Laterality: right Lung location: lo wer lobe of lung Qualified Code(s): J18.9 - Pneumonia, unspecified organism Dyspnea Qualifiers: Dyspnea type: dyspnea on exertion Qualified Code(s): R06.09 - Other forms of dyspnea
[2019-10-20] MEDS ORDERED: DiphenhydrAMINE HCL 50 MG/ML VIAL IV STA (06:07)
[2019-10-20] MEDS ORDERED: OPTIRAY 320 125ml IV PRN (06:32)
[2019-10-20] MEDS ORDERED: cefTRIAXone SODIUM 1,000 MG/50 ML BAG IV STA (07:03)
--- NOTE | 2019-10-20 07:08 | CT Scan Report ---
CT angio chest PE protocol CT DOSE: 293.71 mGy.cm HISTORY: Chest pain PE TECHNIQUE: Multiaxial CT images of the chest were performed following the intravenous administration of contrast to evaluate the pulmonary arteries. Maximal intensity projection images were also obtaine d. A dose lowering technique was utilized adhering to the principles of ALARA. COMPARISON STUDY: 09/16/2017 FINDINGS: Thoracic aorta shows mild prominence of the aortic root at 4 cm. This is unchanged from the prior study. Pulmonary arterial structures enhance appropriately. Mild bibasilar atelectatic change. Potential minimal infiltrate right base with moderate peribronchia l thickening. IMPRESSION: 1. No evidence for pulmonary embolus. 2. Mild bibasilar atelectasis with a small superimposed right basilar parenchymal infiltrative proces s. The above report was generated using voice recognition software. It may contain grammatical, syntax or spelling errors. Electronically signed by: Miguel Luciano M.D. 10/20/2019 7:07 AM
[2019-10-20] MEDS ORDERED: POTASSIUM CHLORIDE 20 MEQ TABCR PO STA (07:09)
--- NOTE | 2019-10-20 07:09 | XRay Report ---
XR chest 1V portable CLINICAL HISTORY: sob, cough COMPARISON STUDY: Chest CT September 16, 2017. Chest radiograph May 21, 2018. FINDINGS: Minimal right lower lung opacity is noted. Left basilar opacity reflects atelectasis. There are median sternotomy wires. Cardiomediastinal silhouette is stable. No pneumothorax or pleural effu katerin is noted. There is no evidence for pulmonary edema. IMPRESSION: Mild right infrahilar opacity which may reflect atelectasis or consolidation. Electronically signed by: Francis Cuenca M.D. 10/20/2019 7:08 AM
[2019-10-20] MEDS ORDERED: AZITHROMYCIN 250 MG TAB PO ONE (07:30)
[2019-10-20] MEDS ORDERED: guaiFENesin 600 MG TABCR PO STA (07:38)
--- NOTE | 2019-10-20 08:50 | History & Physical Report ---
Date of Service October 20, 2019 Assessment & Plan (1) PNA (pneumonia): Patient presents with fevers at home, malaise, and productive cough. Found to have right-sided pneumonia on chest x-ray and chest CT No leukocytosis, vital signs otherwise stable, afebrile in the ER. Not hypoxic Influenza swab is negative With significant fatigue and generalized weakness-needs observation overnight stay She does take chronic prednisone and is immunosuppressed, although does not need stress dose steroids at this time -Admit and continue antibiotics started in the ER with IV ceftriaxone and azithromycin for community-acquired pneumonia -Duo nebs 4 times daily -Continue IV fluids and hold home Lasix -Follow blood cultures -Not requiring supplemental O2 at this time but will provide O2 as needed to keep pulse ox greater than 92% (2) Generalized weakness: Secondary to pneumonia and febrile illness, could be some due to the hypokalemia from diarrhea -Treating with antibiotics as above, IV fluids -PT/OT consultations placed -Replacing potassium -Consider stress dose steroids if blood pressures drop or weakness worsens in the setting of chronic steroid use with acute illness (3) Diarrhea: Going on for about 2 weeks She is on chronic Keflex and Macrobid UTI prophylaxis -Check C. difficile toxin in the stool -Check stool culture -If C. difficile negative, can start Imodium (4) Hypokalemia: Potassium 3.2 on admission Could be due to poor p.o. intake and diarrhea she has had for 2 weeks -Replaced in the ER with oral potassium chloride Continue IV fluids maintenance with 20 mEq of potassium chloride also -Follow BMP in the morning as well as magnesium (5) Hypothyroid: TSH normal a few months ago -Continue home dose of levothyroxine (6) Osteoporosis: Continue home vitamin D (7) Hypertension: Blood pressures acceptable -Continue home amlodipine 5 mg daily, lisinopril 2.5 mg daily, Toprol-XL 25 mg daily (8) Coronary artery disease: Status post CABG many years ago, remains quiescent, no chest pain Troponin here is negative ECG here in normal sinus rhythm with nonspecific lateral T wave changes -Continue home Toprol-XL, lisinopril She is not on antiplatelet therapy due to history of GI bleeds and 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 as per hematology notes reviewed No longer on chemotherapy at this time -Continue daily prednisone 5 mg (10) Hx of deep venous thrombosis: With history of chronic and recurrent DVTs, no longer on anticoagulation due to history of multiple GI bleeds Has an IVC filter in place (11) Atrial fibrillation: Is in normal sinus rhythm here but has a history of paroxysmal atrial fibrillation in the past -Stable on amiodarone 100 mg daily -Continue metoprolol succinate -Monitor on telemetry -Follows with cardiology routinely Previously with a history of systolic CHF secondary to tachyarrhythmia which is now resolved -Holding home Lasix while hydrating during acute illness (12) Hyperparathyroidism: Followed by endocrinology (13) Chronic steroid use: For multiple myeloma -Continue prednisone 5 mg daily and give stress dose steroids as needed as above (14) History of recurrent UTI (urinary tract infection): On rotating prophylactic antibiotics with 14 days of Keflex followed by 14 days of nitrofurantoin -Hold home prophylaxis for now while on IV ceftriaxone and azithromycin -Check UA and urine culture if indicated (15) Anxiety: Stable -Continue home BuSpar (16) DVT prophylaxis: SCDs Disposition-admit to observation medical floor with telemetry as does not meet criteria for inpatient at this time PT/OT consults placed-we will see if stable to go home tomorrow DNR/DNI as discussed with the patient She reports her 3 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 She has been laying in bed for the last 3 days as confirmed by her son at the bedside. She started off with sinus congestion and a "head cold" 5 days ago which then moved down into her chest and now has a bad cough that is productive of yellow sputum. She has had a very poor appetite as well and has not eaten much. She reports multiple loose stools per day for the last 2 weeks and attributed that to antibiotic use for her recurrent UTI prophylaxis. In the ER, she was found to have a right-sided pneumonia on chest x-ray and CT angiogram of the chest and was very weak. She had received acetaminophen at home prior to arrival and therefore did not have a fever. She had no leukocytosis, and her vital signs were otherwise stable. She was not hypoxic. There was no pulmonary embolism seen on her CT. She was given IV ceftriaxone and azithromycin in the ER. She was mildly hypokalemic and received oral potassium replacement. She will be admitted on observation for pneumonia and generalized weakness. Allergies Allergy/AdvReac Type Severity Reaction Status Date / Time aspartame Allergy Mild HEADACHES, Verified 10/20/19 05:01 N/V shellfish derived Allergy Mild HEADACHE Verified 10/20/19 05:01 AND N/V Cipro Allergy Unknown ELEVATED Verified 09/20/17 17:44 BLOOD PRESSURE ciprofloxacin Allergy Unknown ELEVATED Verified 10/20/19 05:01 BLOOD PRESSURE Iodinated Contrast Media Allergy Unknown R/T Verified 10/20/19 05:01 SHELLFISH ALLERGY nitrofurantoin Allergy Unknown NAUSEA,ABDOMINAL Verified 10/20/19 05:01 PAIN Quinolones Allergy Unknown CIPRO - Verified 10/20/19 05:01 ELEVATED BLOOD PRESSURE Sulfa (Sulfonamide Allergy Unknown UNKNOWN - Verified 10/20/19 05:01 Antibiotics) PT STATES DOES NOT REMEMBER Home Medications Home Medications Medication Instructions Recorded Confirmed Type acetaminophen 500 mg PO Q4 PRN #0 tab 09/13/17 10/20/19 History cholecalciferol (vitamin D3) 1,000 unit PO DAILY #0 tab 09/13/17 10/20/19 History [Vitamin D3] cyanocobalamin (vitamin B-12) 1,000 mcg PO DAILY #0 09/13/17 10/20/19 History [Vitamin B-12] glucosamine sulfate [Glucosamine] 1,000 mg PO DAILY #0 09/13/17 10/20/19 History levothyroxine 75 mcg PO DAILY #0 09/13/17 10/20/19 History ondansetron 8 mg PO TID PRN #0 tab 09/13/17 10/20/19 History pantoprazole [Protonix] 40 mg PO DAILY #0 tab 09/13/17 10/20/19 History polyethylene glycol 3350 [Miralax] 17 g PO DAILY PRN #0 09/13/17 10/20/19 History prednisone 5 mg PO DAILY #0 tab 09/13/17 10/20/19 History sucralfate 1 g PO QID PRN #0 tab 09/13/17 10/20/19 History potassium chloride 20 meq PO DAILY #0 tab 05/14/18 10/20/19 History ferrous sulfate 325 mg (65 mg 325 mg PO DAILY 03/08/19 10/20/19 History iron) tablet cinacalcet 30 mg tablet 30 mg PO .COMPLEX tab 06/23/19 10/20/19 History metoprolol succinate 25 mg 25 mg PO DAILY 07/27/19 10/20/19 History tablet,extended release 24 hr lisinopril 2.5 mg tablet 2.5 mg PO DAILY #30 tab 08/21/19 10/20/19 Rx lorazepam 0.5 mg tablet 0.5 mg PO Q8H PRN 08/23/19 10/20/19 History tramadol 50 mg tablet 50 mg PO Q6H PRN 08/23/19 10/20/19 History amlodipine 5 mg tablet 5 mg PO DAILY #90 tab 09/01/19 10/20/19 Rx furosemide 20 mg tablet 20 mg PO .COMPLEX #30 tab 09/01/19 10/20/19 Rx buspirone 5 mg tablet 5 mg PO TID #90 tab 10/02/19 10/20/19 Rx amiodarone 200 mg tablet 100 mg PO DAILY #45 tab 10/10/19 10/20/19 Rx ascorbic acid (vitamin C) 250 mg 250 mg PO DAILY 10/10/19 10/20/19 History tablet amoxicillin 500 mg PO DIRECTED 10/20/19 10/20/19 History dextromethorphan-guaifenesin 1 tab PO Q12H PRN 10/20/19 10/20/19 History [Mucinex DM] hydrocortisone [Procto-Med HC] [address] BID PRN 10/20/19 10/20/19 History nitrofurantoin monohyd/m-cryst 100 mg PO DAILY 10/20/19 10/20/19 History nitroglycerin 0.4 mg SUBLINGUAL DIRECTED PRN 10/20/19 10/20/19 History sodium chloride [Aliyah 128] 1 drp OPHTHALMIC (EYE) BID 10/20/19 10/20/19 History Past Med/Surg History Medical History (Updated 10/20/19 @ 19:04 by Rebekah Spann MD) Acute GI bleeding (Inactive 2017) Acute hip pain (Inactive) Recommend current treatment. Ice/heat, NSAIDs, PT as tolerated, WBAT with walker assistance. Okay from ortho standpoint for discharge when medically stable. Recommend following up in approximately 2-4 weeks for re-eval. Adenocarcinoma of rectum (Resolved 2017) "Diarrhea and rectal bleeding Status post colonoscopy and biopsy 02/09/2017 showing high-grade dysplasia suspicious for adenocarcinoma Status post transrectal resection 02/15/2017 Stage pT2 cN0M0 Plan for combined radiation and chemotherapy, chemotherapy comprised of Xeloda Status post completion of radiation therapy 05/17/2017. She received 5040 cGy. Dosage of Xeloda was adjusted due to side effect of diarrhea" On 05/26/17 13:31 Bhavani Woods wrote "Diarrhea and rectal bleeding Status post colonoscopy and biopsy 02/09/2017 showing high-grade dysplasia suspicious for adenocarcinoma Status post transrectal resection 02/15/2017 Stage pT2 cN0M0 Plan for combined radiation and chemotherapy, chemotherapy comprised of Xeloda Status post completion of radiation therapy 05/17/2017. She received 5040 cGy." On 03/16/17 13:26 Bhavani Woods wrote "Diarrhea and rectal bleeding Status post colonoscopy and biopsy 02/09/2017 showing high-grade dysplasia suspicious for adenocarcinoma Status post transrectal resection 02/15/2017 Stage pT2 cN0M0 Plan for combined radiation and chemotherapy, chemotherapy comprised of Xeloda" Anxiety Arthritis Atrial fibrillation with RVR Blood dyscrasia Cancer CHF (congestive heart failure) Chronic steroid use Chronic systolic heart failure (Inactive) Constipation (Inactive) Coronary artery disease (Chronic) DVT (deep venous thrombosis) (Inactive) Electrolyte abnormality Fatigue (Inactive) Gastric ulcer (Inactive 2014) Gastrointestinal disorder GI bleed Alyse filter in place High cholesterol History of GI bleed History of parathyroid disease (Acute) History of recurrent UTI (urinary tract infection) Hx of deep venous thrombosis Hypertension (Chronic) Multiple myeloma (Chronic) Osteoporosis Thrombophlebitis Thyroid disease Urinary tract infection (Inactive) Surgical History (Updated 10/20/19 @ 18:52 by Rebekah Spann MD) History of appendectomy History of bilateral salpingo-oophorectomy History of left hip hemiarthroplasty History of rectal surgery S/P CABG (coronary artery bypass graft) (Resolved 2006) Family History Other Coronary heart disease Heart failure Social History Preferred Language: Thai Communication Ability: Effective Archivist Economic History Required: No Beliefs That Will Affect Care: None marital status: Current Living Situation: Personal Care Facility current occupational status: retired 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 Other Information That Helps Us Care for You: No Feels Safe at Home: Yes Safety Concerns: Feels Safe At This Time Smoking Status: Never smoker Second Hand Exposure: No ; Hx Alcohol Use: No Hx Substance Use: No Review of Systems Review of Systems: All systems reviewed & are unremarkable except as noted in HPI & below (Denies headache or lightheadedness, denies sore throat, denies chest pain, denies abdominal pains, denies dysuria or hematuria, denies rashes or acute joint pains) Physical Exam Constitutional: average body habitus and + lethargic; no acute distress Eyes: PERRL, conjunctivae normal, anicteric sclerae ENMT: Ears: no hearing impairment and no external ear abnormality Nose: no nasal mucous membrane abnormality and no nasal discharge Mouth: + oral mucosal abnormality (Dry mucous membranes) Neck: trachea midline, no thyromegaly Respiratory: normal respiratory effort; no labored breathing Auscultation: + crackles (In the right lower and middle lung villalobos); no diminished lung sounds, no rhonchi and no wheezes Cardiovascular: RRR, no murmur, no edema Chest (Breasts): Chest: normal inspection of chest Gastrointestinal (Abdomen): normal bowel sounds, soft, nontender, no hepatosplenomegaly Musculoskeletal: Extremities: extremities normal to inspection; no cyanosis and no clubbing Skin: no rashes, warm and dry Neurologic: moves all extremities and awake; no focal motor deficits Psychiatric: A+Ox3, euthymic affect Lymphatic: no lymphedema Results & Data Vital Signs (Past 12 Hours) Vital Signs Temp Pulse Pulse Resp BP BP Pulse Ox 10/20/19 07:30 74 18 163/61 H 97 10/20/19 07:21 97 10/20/19 07:00 37.2 C 72 71 15 168/62 H 168/62 H 94 10/20/19 06:00 37.8 C H 68 15 170/68 H 10/20/19 05:52 69 16 97 10/20/19 05:30 66 15 154/62 H 93 10/20/19 05:00 70 23 160/67 H 95 10/20/19 04:36 73 18 161/70 H 94 10/20/19 04:26 36.8 C 75 18 174/74 H 95 Laboratory Results 10/20/19 10/20/19 10/20/19 Range/Units 05:00 05:00 04:59 WBC 8.21 (4.8-10.8) K/uL RBC 3.96 L (4.2-5.4) M/uL Hgb 12.5 (12.0-16.0) g/dL Hct 36.2 L (37-47) % MCV 91.4 (80-100) fL MCH 31.6 (25-34) pg MCHC 34.5 (32-36) g/dL RDW Std Deviation 46.4 H (36.4-46.3) fL RDW Coeff of Leland 13.8 (11.5-14.5) % Plt Count 196 (130-400) K/uL MPV 10.3 (7.4-10.4) fL Immature Gran % (Auto) 0.4 % Neut % (Auto) 79.4 % Lymph % (Auto) 8.6 % [place] % (Auto) 10.6 % Eos % (Auto) 0.6 % Baso % (Auto) 0.4 % Immature Gran # (Auto) 0.03 H (0.00-0.02) K/uL Neut # (Auto) 6.52 H (1.4-6.5) K/uL Lymph # (Auto) 0.71 L (1.2-3.4) K/uL [place] # (Auto) 0.87 H (0.11-0.59) K/uL Eos # (Auto) 0.05 (0-0.5) K/uL Baso # (Auto) 0.03 (0-0.2) K/uL Sodium 136 (136-145) mmol/L Potassium 3.2 L (3.5-5.1) mmol/L Chloride 105 (98-107) mmol/L Carbon Dioxide 23 (21-32) mmol/L Anion Gap 8.0 (3-11) BUN 13 (7-18) mg/dl Creatinine 0.62 (0.6-1.2) mg/dl Est Cr Clr Drug Dosing Not Reportable Est GFR ( Amer) 94.6 Est GFR (Non-Af Amer) 81.6 BUN/Creatinine Ratio 20.4 H (10-20) Glucose 99 (70-99) mg/dl Calcium 9.0 (8.5-10.1) mg/dl Magnesium 1.9 (1.8-2.4) mg/dl Total Bilirubin 0.7 (0.2-1) mg/dl AST 12 L (15-37) U/L ALT 16 (12-78) U/L Alkaline Phosphatase 57 (45-117) U/L Troponin I < 0.015 (0-0.045) ng/ml NT-Pro-B Natriuret Pep 1238 (0-1800) pg/ml Total Protein 6.8 (6.4-8.2) gm/dl Albumin 3.5 (3.4-5.0) gm/dl Globulin 3.3 (2.5-4.0) gm/dl Albumin/Globulin Ratio 1.1 (0.9-2) Lipase 90 (73-393) U/L Influenza Type A (PCR) Neg for Influ A (Neg) Influenza Type B (PCR) Neg for Influ B (Neg) Diagnostic Findings XR chest 1V portable CLINICAL HISTORY: sob, cough COMPARISON STUDY: Chest CT September 16, 2017. Chest radiograph May 21, 2018. FINDINGS: Minimal right lower lung opacity is noted. Left basilar opacity reflects atelectasis. There are median sternotomy wires. Cardiomediastinal silhouette is stable. No pneumothorax or pleural effusion is noted. There is no evidence for pulmonary edema. IMPRESSION: Mild right infrahilar opacity which may reflect atelectasis or consolidation. CT angio chest PE protocol CT DOSE: 293.71 mGy.cm HISTORY: Chest pain PE TECHNIQUE: Multiaxial CT images of the chest were performed following the intravenous administration of contrast to evaluate the pulmonary arteries. Maximal intensity projection images were also obtained. A dose lowering technique was utilized adhering to the principles of ALARA. COMPARISON STUDY: 09/16/2017 FINDINGS: Thoracic aorta shows mild prominence of the aortic root at 4 cm. This is unchanged from the prior study. Pulmonary arterial structures enhance appropriately. Mild bibasilar atelectatic change. Potential minimal infiltrate right base with moderate peribronchial thickening. IMPRESSION: 1. No evidence for pulmonary embolus. 2. Mild bibasilar atelectasis with a small superimposed right basilar parenchymal infiltrative process. Code Status & VTE Plan Code Status DNR/DNI VTE Prophylaxis Plan VTE Prophylaxis will be ordered: Yes PG Care Time/CCT Total # of Minutes Spent Total Time Spent with Patient: Total time spent is greater than 50% in coordination of care (as documented) at patient's floor/unit and/or counseling patient: (1) Multiple myeloma Multiple myeloma remission status: in remission Qualified Code(s): C90.01 - Multiple myeloma in remission (2) Atrial fibrillation Atrial fibrillation type: paroxysmal Qualified Code(s): I48.0 - Paroxysmal atrial fibrillation
[2019-10-20] MEDS ORDERED: POLYETHYLENE (MIRALAX) 17 GM PACK PO PRN (10:51)
[2019-10-20] MEDS ORDERED: LORazepam 0.5 MG TAB PO PRN (10:51)
[2019-10-20] MEDS ORDERED: ONDANSETRON INJ 2 MG/ML 2 ML VIAL IV PRN (10:51)
[2019-10-20] MEDS ORDERED: HYDROCORTISONE HC 2.5% CRM 30GM TUBE EXT PRN (10:51)
[2019-10-20] MEDS ORDERED: TRAMADOL HCL 50 MG TABLET PO PRN (10:51)
[2019-10-20] MEDS ORDERED: ACETAMINOPHEN 500 MG TAB PO PRN (10:51)
[2019-10-20] MEDS ORDERED: NITROGLYCERIN SL 0.4 MG/TAB TAB SL PRN (10:51)
[2019-10-20] MEDS ORDERED: ALUMINUM/MAGNESIUM SUSP 30 ML UDC PO PRN (10:51)
[2019-10-20] MEDS ORDERED: CINACALCET 30 MG PO SCH (10:51)
[2019-10-20] MEDS: LEVOTHYROXINE SODIUM 75 MCG TABLET PO SCH (12:10)
[2019-10-20] MEDS: FERROUS SULFATE 325 MG TAB PO SCH (12:11)
[2019-10-20] MEDS: ASCORBIC ACID 500 MG TAB PO SCH (12:12)
[2019-10-20] MEDS: CYANOCOBALAMIN 500 MCG TABLET (VITAMIN B-12) PO SCH (12:12)
[2019-10-20] MEDS: CHOLECALCIFEROL 1,000 UNITS TAB PO SCH (12:13)
[2019-10-20] MEDS: AMIODARONE 200 MG TAB PO SCH (12:14)
[2019-10-20] MEDS: POTASSIUM CHLORIDE 20 MEQ TABCR PO SCH (12:14)
[2019-10-20] MEDS: METOPROLOL SUCC 25MG EXT REL TAB PO SCH (12:15)
[2019-10-20] MEDS: predniSONE 5 MG TAB PO SCH (12:15)
[2019-10-20] MEDS: PANTOprazole 40 MG TAB PO SCH (12:15)
[2019-10-20] MEDS: AMLODIPINE BESYLATE 5 MG TAB PO SCH (12:15)
[2019-10-20] MEDS: NSS + 20MEQ KCL 20 MEQ/1,000 ML BAG IV SCH ×2 (12:20→23:48)
[2019-10-20] MEDS: ALBUT/IPRATROP 3MG/0.5MG NEB 3 ML VIAL NEB SCH (19:49)
[2019-10-20] MEDS: SODIUM CHLORIDE 5% OP SOLN 15 ML BTL OP SCH (20:19)
[2019-10-21 04:16] LABS: Appearance Urine Clear (Clear); Bilirubin Urine Negative (Negative); Blood Urine Negative (Negative); Color Urine Yellow; Glucose Urine UA Negative (Negative); Ketones Urine 1+ (Negative); Leukocyte Esterase Urine Negative (Negative); Nitrite Urine Negative (Negative); Protein Urine Negative (Negative); Specific Gravity Urine 1.015 (1.000-1.030); Urobilinogen Urine Negative (Negative)
[2019-10-21] MEDS: LEVOTHYROXINE SODIUM 75 MCG TABLET PO SCH (06:07)
[2019-10-21 06:51] LABS: Basophils # (auto) 0.02 K/uL (0-0.2); Basophils % (auto) 0.3 %; Eosinophils # (auto) 0.05 K/uL (0-0.5); Eosinophils % (auto) 0.7 %; Hematocrit (blood only) 36.6 % (37-47); Hemoglobin 12.1 g/dL (12.0-16.0); Immature Granulocytes # (auto) 0.02 K/uL (0.00-0.02); Immature Granulocytes % (auto) 0.3 %; Lymphocytes # (auto) 0.91 K/uL (1.2-3.4); Lymphocytes % (auto) 13.1 %; Mean Corpuscular Hemoglobin 30.9 pg (25-34); Mean Corpuscular Hgb Conc 33.1 g/dL (32-36); Mean Corpuscular Volume 93.6 fL (80-100); Mean Platelet Volume 10.5 fL (7.4-10.4); Monocytes # (auto) 0.92 K/uL (0.11-0.59); Monocytes % (auto) 13.3 %; Neutrophils # (auto) 5.01 K/uL (1.4-6.5); Neutrophils % (auto) 72.3 %; Platelet Count 210 K/uL (130-400); RDW Coefficient of Variation 13.9 % (11.5-14.5); RDW Standard Deviation 47.8 fL (36.4-46.3); Red Blood Count 3.91 M/uL (4.2-5.4); White Blood Count 6.93 K/uL (4.8-10.8)
[2019-10-21] MEDS ORDERED: cefTRIAXone SODIUM 1,000 MG in DEXTROSE 5% 50 ML IV SCH (07:00)
[2019-10-21] MEDS: ALBUT/IPRATROP 3MG/0.5MG NEB 3 ML VIAL NEB SCH ×3 (07:17→15:51)
[2019-10-21 07:22] LABS: BUN Creatinine Ratio 26.6 (10-20); Calcium 9.6 mg/dl (8.5-10.1); Creatinine Clr Calc Pharmacy 59.6 ml/min; Est GFR (African American) 95.1; Est GFR (Non-African American) 82.1; Potassium 3.6 mmol/L (3.5-5.1)
[2019-10-21 07:33] LABS: Thyroid Stimulating Hormone 1.11 uIu/ml (0.300-4.500)
[2019-10-21] MEDS: CHOLECALCIFEROL 1,000 UNITS TAB PO SCH (08:19)
[2019-10-21] MEDS: predniSONE 5 MG TAB PO SCH (08:19)
[2019-10-21] MEDS: POTASSIUM CHLORIDE 20 MEQ TABCR PO SCH (08:19)
[2019-10-21] MEDS: FERROUS SULFATE 325 MG TAB PO SCH (08:19)
[2019-10-21] MEDS: CYANOCOBALAMIN 500 MCG TABLET (VITAMIN B-12) PO SCH (08:19)
[2019-10-21] MEDS: AMIODARONE 200 MG TAB PO SCH (08:19)
[2019-10-21] MEDS: AMLODIPINE BESYLATE 5 MG TAB PO SCH (08:19)
[2019-10-21] MEDS: PANTOprazole 40 MG TAB PO SCH (08:19)
[2019-10-21] MEDS: ASCORBIC ACID 500 MG TAB PO SCH (08:19)
[2019-10-21] MEDS: METOPROLOL SUCC 25MG EXT REL TAB PO SCH (08:20)
[2019-10-21] MEDS ORDERED: AZITHROMYCIN 250 MG TAB PO SCH (09:00)
[2019-10-21] MEDS: SODIUM CHLORIDE 5% OP SOLN 15 ML BTL OP SCH (09:41)
--- NOTE | 2019-10-21 14:52 | Discharge Summary ---
Date of Service October 21, 2019 Admission HPI Per Admitting Provider This patient is an 84-year-old female with a history of paroxysmal A. 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 She has been laying in bed for the last 3 days as confirmed by her son at the bedside. She started off with sinus congestion and a "head cold" 5 days ago which then moved down into her chest and now has a bad cough that is productive of yellow sputum. She has had a very poor appetite as well and has not eaten much. She reports multiple loose stools per day for the last 2 weeks and attributed that to antibiotic use for her recurrent UTI prophylaxis. In the ER, she was found to have a right-sided pneumonia on chest x-ray and CT angiogram of the chest and was very weak. She had received acetaminophen at home prior to arrival and therefore did not have a fever. She had no leukocytosis, and her vital signs were otherwise stable. She was not hypoxic. There was no pulmonary embolism seen on her CT. She was given IV ceftriaxone and azithromycin in the ER. She was mildly hypokalemic and received oral potassium replacement. She will be admitted on observation for pneumonia and generalized weakness. Admission Exam Per Admitting Provider Constitutional: average body habitus and + lethargic; no acute distress Eyes: PERRL, conjunctivae normal, anicteric sclerae ENMT: Ears: no hearing impairment and no external ear abnormality Nose: no nasal mucous membrane abnormality and no nasal discharge Mouth: + oral mucosal abnormality (Dry mucous membranes) Neck: trachea midline, no thyromegaly Respiratory: normal respiratory effort; no labored breathing Auscultation: + crackles (In the right lower and middle lung villalobos); no diminished lung sounds, no rhonchi and no wheezes Cardiovascular: RRR, no murmur, no edema Chest (Breasts): Chest: normal inspection of chest Gastrointestinal (Abdomen): normal bowel sounds, soft, nontender, no hepatosplenomegaly Musculoskeletal: Extremities: extremities normal to inspection; no cyanosis and no clubbing Skin: no rashes, warm and dry Neurologic: moves all extremities and awake; no focal motor deficits Psychiatric: A+Ox3, euthymic affect Lymphatic: no lymphedema Principal Diagnosis Right basal community-acquired pneumonia Discharge Exam Constitutional average body habitus and + lethargic; no acute distress Eyes + anicteric sclerae; normal pupil size ENMT Ears: no external ear abnormality Nose: no nasal discharge Mouth: no oral mucosal abnormality Neck trachea midline, no thyromegaly Respiratory normal respiratory effort; no respiratory distress, no labored breathing, no retractions and does not use accessory muscles Auscultation: no diminished lung sounds, no crackles, no rhonchi and no wheezes Cardiovascular RRR, no murmur, no edema Chest (Breasts) Chest: normal inspection of chest Gastrointestinal (Abdomen) normal bowel sounds, soft, nontender, no hepatosplenomegaly Musculoskeletal Extremities: extremities normal to inspection; no cyanosis and no clubbing Skin no rashes, warm and dry Neurologic moves all extremities and awake; no focal motor deficits Psychiatric A+Ox3, euthymic affect Affect: + tearful affect Mood: + anxious mood Insight: good insight Discharge Data Allergies Allergy/AdvReac Type Severity Reaction Status Date / Time aspartame Allergy Mild HEADACHES, Verified 10/20/19 05:01 N/V shellfish derived Allergy Mild HEADACHE Verified 10/20/19 05:01 AND N/V Cipro Allergy Unknown ELEVATED Verified 09/20/17 17:44 BLOOD PRESSURE ciprofloxacin Allergy Unknown ELEVATED Verified 10/20/19 05:01 BLOOD PRESSURE Iodinated Contrast Media Allergy Unknown R/T Verified 10/20/19 05:01 SHELLFISH ALLERGY nitrofurantoin Allergy Unknown NAUSEA,ABDOMINAL Verified 10/20/19 05:01 PAIN Quinolones Allergy Unknown CIPRO - Verified 10/20/19 05:01 ELEVATED BLOOD PRESSURE Sulfa (Sulfonamide Allergy Unknown UNKNOWN - Verified 10/20/19 05:01 Antibiotics) PT STATES DOES NOT REMEMBER Consultations 10/20/19 07:34 ED Decision to Admit Stat 10/20/19 10:51 Consult Case Management - Discharge Planning Routine Ordered Studies 10/20/19 05:59 CT angio chest PE protocol Stat IMPRESSION: 1. No evidence for pulmonary embolus. 2. Mild bibasilar atelectasis with a small superimposed right basilar parenchymal infiltrative process. Hospital Course (1) PNA (pneumonia): Mrs. Campos is an 84-year-old female observed overnight at [facility] from October 20 to due to worsening cough, malaise and shortness of breath. She was diagnosed with right lower lobe pneumonia based on lung auscultation and chest CTA findings with a collaborating history. She was treated with IV ceftriaxone and p.o. azithromycin. She will be transitioned to cefdinir and azithromycin on discharge. She is to discontinue her UTI prophylaxis antibiotics while on these medications. Overnight she is also been having 2-week history of diarrhea. Unfortunately we are unable to get a sample for C. difficile however her WBC is normal and she has no abdominal pain. Recommend she follows up with her primary care physician regarding this. Most likely it represents antibiotic associated diarrhea due to her ongoing UTI prophylaxis. She has significant generalized weakness however this is been ongoing progressively for some time since her hip fracture last year with a significant fear of falling and more recently the of her 2 months ago. We discussed possible changes to her medications however in the end decided this would best be done by her primary care physician if necessary. She was evaluated by physical and Occupational Therapy and recommended discharge back to [facility]. Kind regards, Dr. Mccracken history (2) Generalized weakness: (3) Diarrhea: (4) Hypokalemia: (5) Hypothyroid: (6) Osteoporosis: (7) Hypertension: (8) Coronary artery disease: (9) Multiple myeloma: (10) Hx of deep venous thrombosis: (11) Atrial fibrillation: Paroxysmal (12) Hyperparathyroidism: (13) Chronic steroid use: (14) History of recurrent UTI (urinary tract infection): (15) Anxiety: Total Time Total Time Spent Total Time Spent (In Minutes): 55 Total Time Includes: Examination of the Patient, Discharge Planning and Medication Reconciliation Discharge Plan Discharge Items Patient Disposition: [facility] Reason For Visit: PNEUMONIA,WEAKNESS Discharge Diagnosis: Right basal community-acquired pneumonia Activity: Resume your previous activity Non-emergency contact: Primary Care Provider Call non-emergency contact if: you have any medication questions and your symptoms worsen Follow-up/Referrals: [facility], [facility] [Primary Care Provider] - Diet: Regular Addtl Attending Provider Instructions: You are observed overnight at [facility] from October 20-2018 due to worsening cough, malaise and shortness of breath. You were diagnosed with pneumonia treated with IV antibiotics and now transitioned to oral antibiotics. Please hold your usual urine tract infection prophylactic antibiotics (amoxicillin and nitrofurantoin) while taking antibiotics for pneumonia. You were seen by physical and occupational therapy and determined to be safe for discharge back [facility]. Pending Studies at Discharge: No Stand-Alone Forms: My [facility], Smoking Cessation Skilled Items Patient informed of condition?: Yes DNR: Yes Discharge Level of Care: Other Communicable Disease: No Discharge Prognosis: Stable Lines: None Urinary Catheter: No Medications and DC Order Prescriptions: New azithromycin [Zithromax] 250 mg Tablet 250 mg PO QAM 3 Days Qty: 3 RF: 0 cefdinir 300 mg capsule 300 mg PO BID 5 Days Qty: 10 RF: 0 Continued ferrous sulfate 325 mg (65 mg iron) tablet 325 mg PO DAILY RF: 0 polyethylene glycol 3350 [Miralax] 17 gram Powder In Packet 17 g PO DAILY PRN (Reason: Constipation) Qty: 0 RF: 0 sucralfate 1 gram Tablet 1 g PO QID PRN (Reason: ULCERS) Qty: 0 RF: 0 prednisone 5 mg Tablet 5 mg PO DAILY Qty: 0 RF: 0 cyanocobalamin (vitamin B-12) [Vitamin B-12] 1,000 mcg Tablet 1,000 mcg PO DAILY Qty: 0 RF: 0 glucosamine sulfate [Glucosamine] 500 mg Tablet 1,000 mg PO DAILY Qty: 0 RF: 0 acetaminophen 500 mg Tablet 500 mg PO Q4 PRN (Reason: Pain) Qty: 0 RF: 0 ondansetron 8 mg Tablet,Disintegrating 8 mg PO TID PRN (Reason: n/v) Qty: 0 RF: 0 levothyroxine 75 mcg Tablet 75 mcg PO DAILY Qty: 0 RF: 0 pantoprazole [Protonix] 40 mg Tablet,Delayed Release (Dr/Ec) 40 mg PO DAILY Qty: 0 RF: 0 cholecalciferol (vitamin D3) [Vitamin D3] 1,000 unit Capsule 1,000 unit PO DAILY Qty: 0 RF: 0 potassium chloride 20 mEq Tablet Extended Release 20 meq PO DAILY Qty: 0 RF: 0 cinacalcet [Sensipar] 30 mg tablet 30 mg PO .COMPLEX RF: 0 lisinopril 2.5 mg tablet 2.5 mg PO DAILY Qty: 30 RF: 5 amlodipine 5 mg tablet 5 mg PO DAILY Qty: 90 RF: 3 furosemide 20 mg tablet 20 mg PO .COMPLEX Qty: 30 RF: 5 buspirone 5 mg tablet 5 mg PO TID Qty: 90 RF: 0 metoprolol succinate 25 mg tablet extended release 24 hr 25 mg PO DAILY RF: 0 ascorbic acid (vitamin C) 250 mg tablet 250 mg PO DAILY RF: 0 amiodarone 200 mg tablet 100 mg PO DAILY Qty: 45 RF: 3 tramadol 50 mg tablet 50 mg PO Q6H PRN (Reason: Pain) RF: 0 lorazepam 0.5 mg tablet 0.5 mg PO Q8H PRN (Reason: Anxiety) RF: 0 amoxicillin 500 mg Capsule 500 mg PO DIRECTED RF: 0 Mucinex DM 30-600 mg Tablet Extended Release 12 Hr 1 tab PO Q12H PRN (Reason: Congestion) RF: 0 sodium chloride [Aliyah 128] 5 % Drops 1 drp OPHTHALMIC (EYE) BID RF: 0 nitrofurantoin monohyd/m-cryst 100 mg Capsule 100 mg PO DAILY RF: 0 nitroglycerin 0.4 mg Tablet, Sublingual 0.4 mg sublingual DIRECTED PRN (Reason: Chest Pain) RF: 0 hydrocortisone [Procto-Med HC] 2.5 % Cream With Perineal Applicator 1 applic DC BID PRN (Reason: irritation) RF: 0 Discharge Orders: Discharge Order (Routine); Ordered 10/21/19 Ordered By: Nawaf Rubalcava Admission Data Admit Date/Time: 10/20/19 08:25 Attending Provider: Nawaf Rubalcava Admit Provider: eRbekah Spann [facility] [employer] Other Providers: Rebekah Spann Other Interventions: Discharge Summary Assessment (RN) Last Done: 10/21/19 15:41 DC Date/Time DO NOT enter until pt leaves facility: 10/21/19 17:03
== END 2019-10-21 17:03 | disposition home or self-care (01) ==
LOC: 2N 04:21 → ED 04:21 → SUATTDRO 08:25 → 2N 08:59

== ENCOUNTER 2021-07-19 12:21 | Observation (INO) ==
--- NOTE | 2021-07-19 12:22 | Emergency Department Note ---
Impression & Plan Stroke-like symptoms ED Provider Note Provider: Graham Poe MD DATE OF SERVICE: 07/19/2021 CHIEF COMPLAINT: Speech changes HISTORY OF PRESENT ILLNESS: Patient is a 86-year-old female past medical history of hypothyroidism, CABG, paroxysmal atrial fibrillation not currently on anticoagulation presenting via ambulance from personal custodial with the onset around 1120am this morning with sudden onset of significantly slurred speech and then inability speech with some right facial droop. No trauma or pain reported. Patient denies headache upon arrival. EMS states the patient appears significantly here and is now talking with only the intermittent episode of some brief word finding that last a second or 2. Patient states she has baseline neuropathy in her legs but this is unchanged. States she can move her arms and legs like before. Denies a history of similar. Denies any headache or acute visual change. REVIEW OF SYSTEMS: A total of 10 review of systems was obtained and negative except as stated above in the HPI. PAST MEDICAL HISTORY: As noted above MEDICATIONS: Reviewed home medication listings SOCIAL HISTORY: Lives at a personal care facility PHYSICAL EXAM: GENERAL: alert and oriented in no acute distress on stretcher Head: normocephalic and atraumatic EYES: No injection, discharge or icterus. PERRL NECK: Trachea midline. Supple. ENT: Mucous membranes pink and moist. LUNGS: Airway patent. No retractions. Breath sounds clear HEART: Regular rate and rhythm. No chest wall tenderness ABDOMEN: Soft and non-tender, without guarding or rebound. SKIN: Acyanotic, warm, dry, without rashes EXTREMITIES: Without swelling, tenderness or deformity NEUROLOGICAL: No slurred speech. Slight left tongue deviation noted. Occasionally every other sentence with a brief 1 or 2-second episode of word finding. No significant facial droop appreciated. Normal strength and tone in the extremities. Sensation to gross touch normal. EKG: Atrial fibrillation [address] segment elevation noted. QTc 437. Some slight inferior lateral ST flattening is noted. CONTINUOUS CARDIAC MONITORING: was ordered and showed a heart rate of 70s to 90s bpm in atrial fibrillation Patient's laboratory studies and imaging reviewed. Differential includes Infection, dehydration, metabolic abnormality, hypo/hyperglycemia, electrolyte disturbance, anemia, hypoxia, cardiac sources, intracerebral event, toxicologic, neurologic, as well as other pathologies. IMPRESSION/MEDICAL DECISION MAKING: Patient with listed allergy IV dye contrast. Blood sugar got low. Made a stroke alert and taken to CT although symptoms at this point upon arrival are very minimal. Discussed with Dr. Ibarra of stroke at [place]. Do not feel role for TPA given her minimal symptoms at this point. Patient not having symptoms consistent with LVO of any significant size. Good movement of the arms and legs. Patient does have a history of A. fib and appears to be in this ques tion some a be provoking possible strokelike symptoms. Patient not reportedly on anticoagulation. Blood work here with some slight anemia and mild hypomagnesemia. Patient received some IV magnesium supplementation although I doubt this is causing her symptoms. Symptoms of slight word finding again are very minimal at this point and otherwise she seems to be at neurological baseline. Question a very small stroke versus TIA type event. Urinalysis still pending. No severe electrolyte abnormality noted. Cardiology records indicate a significant history of major prior GI bleed and thus has not been anticoagulated by cardiology or started on antiplatelet agents. Troponin not elevated and I doubt DE/ACS. Discussed with the patient and her son at bedside. Son states that she has had significant improvement of her symptoms since earlier. Hard to note word finding on last reevaluation at bedside as it is seemingly almost resolved. Again discussed given the minimal symptoms would not recommend TPA and they are in agreement with this plan. Discussed recommendation for further monitoring in the hospital. Hospitalist will be contacted. DIAGNOSIS: Strokelike symptoms DISPOSITION: Hospitalist will evaluate Patient was agreeable with this plan. Past Med/Surg History Medical History (Updated 07/19/21 @ 14:56 by OSCRA Wooten) Acute GI bleeding (2017) Acute hip pain Recommend current treatment. Ice/heat, NSAIDs, PT as tolerated, WBAT with walker assistance. Okay from ortho standpoint for discharge when medically stable. Recommend following up in approximately 2-4 weeks for re-eval. Adenocarcinoma of rectum (2017) "Diarrhea and rectal bleeding Status post colonoscopy and biopsy 02/09/2017 showing high-grade dysplasia suspicious for adenocarcinoma Status post transrectal resection 02/15/2017 Stage pT2 cN0M0 Plan for combined radiation and chemotherapy, chemotherapy comprised of Xeloda Status post completion of radiation therapy 05/17/2017. She received 5040 cGy. Dosage of Xeloda was adjusted due to side effect of diarrhea" On 05/26/17 13:31 Bhavani Woods wrote "Diarrhea and rectal bleeding Status post colonoscopy and biopsy 02/09/2017 showing high-grade dysplasia suspicious for adenocarcinoma Status post transrectal resection 02/15/2017 Stage pT2 cN0M0 Plan for combined radiation and chemotherapy, chemotherapy comprised of Xeloda Status post completion of radiation therapy 05/17/2017. She received 5040 cGy." On 03/16/17 13:26 Bhavani Woods wrote "Diarrhea and rectal bleeding Status post colonoscopy and biopsy 02/09/2017 showing high-grade dysplasia suspicious for adenocarcinoma Status post transrectal resection 02/15/2017 Stage pT2 cN0M0 Plan for combined radiation and chemotherapy, chemotherapy comprised of Xelo da" Anxiety Arthritis Atrial fibrillation with RVR Blood dyscrasia Cancer CHF (congestive heart failure) Chronic steroid use Chronic systolic heart failure Constipation Coronary artery disease DVT (deep venous thrombosis) Electrolyte abnormality Fatigue Gastric ulcer (2014) Gastrointestinal disorder GI bleed Alyse filter in place High cholesterol History of GI bleed History of parathyroid disease Hx of deep venous thrombosis Hypertension Multiple myeloma Osteoporosis Pneumonia (09/2019) Thrombophlebitis Thyroid disease Urinary tract infection Surgical History History of appendectomy History of bilateral salpingo-oophorectomy History of left hip hemiarthroplasty History of rectal surgery S/P CABG (coronary artery bypass graft) (2006) S/P hysterectomy S/P IVC filter Family History Other Coronary heart disease Heart failure Denies family history of Ovarian cancer Prostate cancer Myocardial infarction Breast cancer Colorectal cancer Social History Smoking Status: Never smoker Second Hand Exposure: No; Do You Dip or Chew Tobacco: No; Tobacco Cessation Education Requested by Patient: No Hx Alcohol Use: No Hx Substance Use: No Preferred Language: [place]orese Communication Ability: Effective Visual Impairment: Partially Limited Hearing Ability: Hard of Hearing 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 Beliefs That Will Affect Care: None marital status: Current Living Situation: Personal Care Facility current occupational status: retired 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 How many Children do You have: 3 Other Information That Helps Us Care for You: No Feels Safe at Home: Yes Safety Concerns: Feels Safe At This Time Childhood Exposure to Second-Hand Smoke: No during the past year weight has: remained stable Dental Care, Regularly: Yes Physical Activity Frequency: Does not Exercise Seatbelt Use: always Sunscreen Use: Yes Assistive Devices: Glasses Allergies Allergies Allergy/AdvReac Type Severity Reaction Status Date / Time aspartame Allergy Mild HEADACHES, Verified 07/19/21 14:02 N/V shellfish derived Allergy Mild HEADACHE Verified 07/19/21 14:02 AND N/V Cipro Allergy Unknown ELEVATED Verified 09/20/17 17:44 BLOOD PRESSURE ciprofloxacin Allergy Unknown ELEVATED Verified 07/19/21 14:02 BLOOD PRESSURE Iodinated Contrast Media Allergy Unknown R/T Verified 07/19/21 14:02 SHELLFISH ALLERGY nitrofurantoin Allergy Unknown NAUSEA,ABDOMINAL Verified 07/19/21 14:02 PAIN Quinolones Allergy Unknown CIPRO - Verified 07/19/21 14:02 ELEVATED BLOOD PRESSURE Sulfa (Sulfonamide Allergy Unknown UNKNOWN - Verified 07/19/21 14:02 Antibiotics) PT STATES DOES NOT REMEMBER Home Meds Home Medications Medication Instructions Recorded Confirmed acetaminophen 500 mg tablet 500 mg PO Q4 PRN #0 tab 09/13/17 07/19/21 cyanocobalamin (vitamin B-12) 1,000 mcg PO DAILY #0 09/13/17 07/19/21 1,000 mcg tablet (Vitamin B-12) glucosamine sulfate 500 mg tablet 1,000 mg PO DAILY #0 09/13/17 07/19/21 (Glucosamine) levothyroxine 75 mcg tablet 75 mcg PO DAILY #0 09/13/17 07/19/21 ondansetron 8 mg disintegrating 8 mg PO TID PRN #0 tab 09/13/17 07/19/21 tablet polyethylene glycol 3350 17 gram 17 g PO DAILY PRN #0 09/13/17 07/19/21 oral powder packet (Miralax) prednisone 5 mg tablet 5 mg PO DAILY #0 tab 09/13/17 07/19/21 potassium chloride 20 mEq 20 meq PO DAILY #0 tab 05/14/18 07/19/21 tablet,extended release ferrous sulfate 325 mg (65 mg 325 mg PO DAILY 03/08/19 07/19/21 iron) tablet metoprolol succinate 25 mg 25 mg PO DAILY 07/27/19 07/19/21 tablet,extended release 24 hr lorazepam 0.5 mg tablet 0.5 mg PO Q8H PRN 08/23/19 07/19/21 ascorbic acid (vitamin C) 250 mg 250 mg PO DAILY 10/10/19 07/19/21 tablet dextromethorphan-guaifenesin 30 1 tab PO Q12H PRN 10/20/19 07/19/21 mg-600 mg tablet extended hr (Mucinex DM) hydrocortisone 2.5 % topical cream 1 applic [place] BID PRN 10/20/19 07/19/21 with perineal applicator (Procto-Med HC) nitroglycerin 0.4 mg sublingual 0.4 mg SUBLINGUAL DIRECTED PRN 10/20/19 07/19/21 tablet amiodarone 200 mg tablet 100 mg PO .COMPLEX tab 11/21/19 07/19/21 pantoprazole 40 mg tablet,delayed 40 mg PO BID #0 tab 04/18/20 07/19/21 release (Protonix) Previous Rx's Medication Instructions Recorded lisinopril 2.5 mg tablet 2.5 mg PO DAILY #30 tab 08/21/19 amlodipine 5 mg tablet 5 mg PO DAILY #90 tab 09/01/19 furosemide 20 mg tablet 20 mg PO .COMPLEX #30 tab 09/01/19 buspirone 5 mg tablet 5 mg PO TID #90 tab 10/02/19 calcium carbonate 600 mg calcium 600 mg PO DAILY #90 tab 11/28/20 (1,500 mg) tablet (Calcium) calcitriol 0.5 mcg capsule 1.5 mcg PO DAILY #90 cap 02/17/21 cholecalciferol (vitamin D3) 50 50 mcg PO DAILY #30 cap 03/24/21 mcg (2,000 unit) capsule cinacalcet 30 mg tablet (Sensipar) 30 mg PO BID #60 tab 05/19/21 cephalexin 500 mg capsule 500 mg PO BID #60 cap 06/04/21 sucralfate 1 gram tablet 1 g PO QID PRN #120 tab 07/17/21 Results & Data (ED) Vital Signs Vital Signs - 24 hr 07/19/21 12:22 07/19/21 12:35 07/19/21 12:48 Pulse Rate 93 H 97 H Pulse Rate [Right Finger] Pulse Rate from SpO2 Sensor 93 H Respiratory Rate 14 19 21 Respiratory Effort / Characteristics Non-Labored Non-Labored Respiratory Depth Normal Normal Blood Pressure 157/85 H 157/85 H Blood Pressure [Right Arm] 155/83 H Blood Pressure Mean 109 109 Blood Pressure Mean [Right Arm] 107 Pulse Oximetry 97 98 97 Oxygen Delivery Method Room Air Room Air Sepsis Recent Fever Within 48 Hours No Sepsis New/Unexplained Change in Mental Status N/A Sepsis Action Taken by Nursing No Action Required 07/19/21 13:01 07/19/21 13:30 07/19/21 13:45 Pulse Rate 78 80 Pulse Rate [Right Finger] 78 Pulse Rate from SpO2 Sensor 80 87 Respiratory Rate 22 22 21 Respiratory Effort / Characteristics Non-Labored Respiratory Depth Normal Blood Pressure Blood Pressure [Right Arm] 141/65 H Blood Pressure Mean Blood Pressure Mean [Right Arm] 90 Pulse Oximetry 98 96 97 Oxygen Delivery Method Room Air Sepsis Recent Fever Within 48 Hours Sepsis New/Unexplained Change in Mental Status Sepsis Action Taken by Nursing Laboratory Data Result diagrams: 07/19/21 12:32 07/19/21 12:32 Lab Results 07/19/21 07/19/21 07/19/21 Range/Units 12:32 12:32 12:32 WBC 8.88 (4.8-10.8) K/uL RBC 3.67 L (4.2-5.4) M/uL Hgb 11.6 L (12.0-16.0) g/dL POC Hgb (12.0-16.0) g/dl Hct 34.7 L (37-47) % POC Hct (37-47) % MCV 94.6 (80-100) fL MCH 31.6 (25-34) pg MCHC 33.4 (32-36) g/dL RDW Std Deviation 48.8 H (36.4-46.3) fL RDW Coeff of Leland 14.1 (11.5-14.5) % Plt Count 268 (130-400) K/uL MPV 10.4 (7.4-10.4) fL Immature Gran % (Auto) 0.6 % Neut % (Auto) 74.8 % Lymph % (Auto) 18.5 % Fallon % (Auto) 5.2 % Eos % (Auto) 0.7 % Baso % (Auto) 0.2 % Neut # (Auto) 6.65 H (1.4-6.5) K/uL Lymph # (Auto) 1.64 (1.2-3.4) K/uL Fallon # (Auto) 0.46 (0.11-0.59) K/uL Eos # (Auto) 0.06 (0-0.5) K/uL Baso # (Auto) 0.02 (0-0.2) K/uL Immature Gran # (Auto) 0.05 H (0.00-0.02) K/uL PT 10.2 (9.0-12.0) Seconds INR 1.0 (0.9-1.1) APTT 22.6 (21.0-31.0) Seconds PTT Ratio 0.9 POC Sodium (135-144) mmol/L Sodium (136-145) mmol/L POC Potassium (3.3-5.0) mmol/L Potassium (3.5-5.1) mmol/L POC Chloride (101-112) mmol/L Chloride (98-107) mmol/L Carbon Dioxide (21-32) mmol/L POC Total CO2 (24-31) mmol/L Anion Gap (3-11) POC Anion Gap (16-25) mmol/L POC BUN (7-18) mg/dl BUN (7-18) mg/dl Creatinine (0.6-1.2) mg/dl POC Creatinine (0.6-1.3) mg/dl Est Cr Clr Drug Dosing ml/min Est GFR ( Amer) ml/min Est GFR (Non-Af Amer) ml/min BUN/Creatinine Ratio (10-20) Glucose (70-99) mg/dl POC Glucose (other) (70-99) mg/dl Calcium (8.5-10.1) mg/dl POC Ioniz Calcium Patrizia (1.12-1.32) mmol/l Magnesium (1.8-2.4) mg/dl Total Bilirubin (0.2-1) mg/dl AST (15-37) U/L ALT (12-78) U/L Alkaline Phosphatase (45-117) U/L Troponin I (0-0.045) ng/ml Total Protein (6.4-8.2) gm/dl Albumin (3.4-5.0) gm/dl Globulin (2.5-4.0) gm/dl Albumin/Globulin Ratio (0.9-2) COVID-19 Eval Order SARS-CoV-2 (PCR) (Negative) Blood Type A Positive Antibody Screen POSITIVE A Antibody Identification Anti-Fya 07/19/21 07/19/21 07/19/21 Range/Units 12:32 12:39 13:05 WBC (4.8-10.8) K/uL RBC (4.2-5.4) M/uL Hgb (12.0-16.0) g/dL POC Hgb 11.9 L (12.0-16.0) g/dl Hct (37-47) % POC Hct 35 L (37-47) % MCV (80-100) fL MCH (25-34) pg MCHC (32-36) g/dL RDW Std Deviation (36.4-46.3) fL RDW Coeff of Leland (11.5-14.5) % Plt Count (130-400) K/uL MPV (7.4-10.4) fL Immature Gran % (Auto) % Neut % (Auto) % Lymph % (Auto) % Fallon % (Auto) % Eos % (Auto) % Baso % (Auto) % Neut # (Auto) (1.4-6.5) K/uL Lymph # (Auto) (1.2-3.4) K/uL Fallon # (Auto) (0.11-0.59) K/uL Eos # (Auto) (0-0.5) K/uL Baso # (Auto) (0-0.2) K/uL Immature Gran # (Auto) (0.00-0.02) K/uL PT (9.0-12.0) Seconds INR (0.9-1.1) APTT (21.0-31.0) Seconds PTT Ratio POC Sodium 135 (135-144) mmol/L Sodium 135 L (136-145) mmol/L POC Potassium 4.2 (3.3-5.0) mmol/L Potassium 4.2 (3.5-5.1) mmol/L POC Chloride 99 L (101-112) mmol/L Chloride 103 (98-107) mmol/L Carbon Dioxide 26 (21-32) mmol/L POC Total CO2 26 (24-31) mmol/L Anion Gap 6.0 (3-11) POC Anion Gap 15.0 L (16-25) mmol/L POC BUN 17 (7-18) mg/dl BUN 15 (7-18) mg/dl Creatinine 0.98 (0.6-1.2) mg/dl POC Creatinine 1.0 (0.6-1.3) mg/dl Est Cr Clr Drug Dosing 39.6 ml/min Est GFR ( Amer) 59.7 ml/min Est GFR (Non-Af Amer) 51.5 ml/min BUN/Creatinine Ratio 15.0 (10-20) Glucose 95 (70-99) mg/dl POC Glucose (other) 101 H (70-99) mg/dl Calcium 10.7 H (8.5-10.1) mg/dl POC Ioniz Calcium Patrizia 1.38 H (1.12-1.32) mmol/l Magnesium 1.7 L (1.8-2.4) mg/dl Total Bilirubin 0.7 (0.2-1) mg/dl AST 14 L (15-37) U/L ALT 17 (12-78) U/L Alkaline Phosphatase 38 L (45-117) U/L Troponin I < 0.015 (0-0.045) ng/ml Total Protein 7.1 (6.4-8.2) gm/dl Albumin 3.8 (3.4-5.0) gm/dl Globulin 3.3 (2.5-4.0) gm/dl Albumin/Globulin Ratio 1.2 (0.9-2) COVID-19 Eval Order Covid19 at [facility] SARS-CoV-2 (PCR) (Negative) Blood Type Antibody Screen Antibody Identification 07/19/21 Range/Units 13:05 WBC (4.8-10.8) K/uL RBC (4.2-5.4) M/uL Hgb (12.0-16.0) g/dL POC Hgb (12.0-16.0) g/dl Hct (37-47) % POC Hct (37-47) % MCV (80-100) fL MCH (25-34) pg MCHC (32-36) g/dL RDW Std Deviation (36.4-46.3) fL RDW Coeff of Leland (11.5-14.5) % Plt Count (130-400) K/uL MPV (7.4-10.4) fL Immature Gran % (Auto) % Neut % (Auto) % Lymph % (Auto) % Fallon % (Auto) % Eos % (Auto) % Baso % (Auto) % Neut # (Auto) (1.4-6.5) K/uL Lymph # (Auto) (1.2-3.4) K/uL Fallon # (Auto) (0.11-0.59) K/uL Eos # (Auto) (0-0.5) K/uL Baso # (Auto) (0-0.2) K/uL Immature Gran # (Auto) (0.00-0.02) K/uL PT (9.0-12.0) Seconds INR (0.9-1.1) APTT (21.0-31.0) Seconds PTT Ratio POC Sodium (135-144) mmol/L Sodium (136-145) mmol/L POC Potassium (3.3-5.0) mmol/L Potassium (3.5-5.1) mmol/L POC Chloride (101-112) mmol/L Chloride (98-107) mmol/L Carbon Dioxide (21-32) mmol/L POC Total CO2 (24-31) mmol/L Anion Gap (3-11) POC Anion Gap (16-25) mmol/L POC BUN (7-18) mg/dl BUN (7-18) mg/dl Creatinine (0.6-1.2) mg/dl POC Creatinine (0.6-1.3) mg/dl Est Cr Clr Drug Dosing ml/min Est GFR ( Amer) ml/min Est GFR (Non-Af Amer) ml/min BUN/Creatinine Ratio (10-20) Glucose (70-99) mg/dl POC Glucose (other) (70-99) mg/dl Calcium (8.5-10.1) mg/dl POC Ioniz Calcium Patrizia (1.12-1.32) mmol/l Magnesium (1.8-2.4) mg/dl Total Bilirubin (0.2-1) mg/dl AST (15-37) U/L ALT (12-78) U/L Alkaline Phosphatase (45-117) U/L Troponin I (0-0.045) ng/ml Total Protein (6.4-8.2) gm/dl Albumin (3.4-5.0) gm/dl Globulin (2.5-4.0) gm/dl Albumin/Globulin Ratio (0.9-2) COVID-19 Eval Order SARS-CoV-2 (PCR) NEGATIVE (Negative) Blood Type Antibody Screen Antibody Identification Administered Medications Discontinued Medications Magnesium Sulfate/Dextrose (Magnesium Sulfate / D5w) 1 gm in 100 mls @ 200 mls/hr IV Q30M TERESA Stop: 07/19/21 14:15 Last Infusion: 07/19/21 16:09 Dose: 0 mls/hr Documented by: [id number] Admin: 07/19/21 15:20 Dose: 100 mls/hr Documented by: [id number] Infusion: 07/19/21 15:19 Dose: 0 mls/hr Documented by: [id number] Admin: 07/19/21 14:09 Dose: 200 mls/hr Documented by: [id number] Imaging Data Radiologist's Impression: Head CT 07/19/21 12:16 CT SCAN OF THE BRAIN WITHOUT IV CONTRAST CLINICAL HISTORY: Strokelike symptoms. COMPARISON STUDY: No priors. TECHNIQUE: Unenhanced axial CT scan of the brain is performed from the vertex to the skull base. A dose lowering technique was utilized adhering to the principles of ALARA. CT DOSE: 537.48 mGy.cm FINDINGS: Brain parenchyma: There is a 2.8 x 2.4 cm calcified extra-axial lesion the right posterior fossa along the inferior aspect of the tentorium cerebelli. This causes mild mass effect upon the right cerebellar hemisphere. There is no associated edema. There are age-related involutional changes noting moderate subcortical and periventricular microangiopathic change. There is no hemorrhage or evidence of acute territorial ischemia by CT criteria. Merrill-white matter differentiation is preserved. No extra-axial fluid collection is seen. Ventricles, sulci, cisterns: Prominent secondary to involutional change. Intracranial vasculature: There is atherosclerotic calcification of the cavernous carotid and vertebral arteries. Calvarium: Unremarkable. Sinuses and mastoids: There is mild mucosal thickening and secretions seen within the right sphenoid sinus. The remaining visualized paranasal sinuses are clear. The mastoid air cells are well pneumatized. Orbits: The bony orbits are grossly intact. There are bilateral ocular lens implants. IMPRESSION: 1. There is no hemorrhage, midline shift, or evidence of acute territorial isc hemia by CT criteria. 2. There is a 2.8 cm calcified extra-axial mass lesion in the right posterior fossa along the inferior aspect of the tentorium cerebelli. The appearance is typical for a meningioma, and this causes mild mass effect upon the adjacent right cerebellar hemisphere. No edema is identified. ACT 112: Negative or not required by law. Electronically signed by: Sridhar Porter M.D. 07/19/2021 12:42 PM Chest X-Ray 07/19/21 12:17 SINGLE VIEW CHEST CLINICAL HISTORY: Strokelike symptoms. FINDINGS: An AP, portable, upright chest radiograph is compared to chest x-ray and chest CT dated 10/20/2019. The patient is status post midline sternotomy. The heart is enlarged noting atherosclerotic calcification of the thoracic aorta. The pulmonary vascular structures noncongested. Scarring/atelectasis is noted at the lung bases. The lungs and pleural spaces are otherwise clear. No pneumothorax is seen. The skeletal structures are osteopenic. The bony thorax is grossly intact. Advanced arthritic changes noted in the shoulders. Superior sub luxation of the humeral heads suggests chronic bilateral rotator cuff injuries. IMPRESSION: Cardiomegaly with no acute cardiopulmonary abnormality. ACT 112: Negative or not required by law. Electronically signed by: Sridhar Porter M.D. 07/19/2021 1:10 PM Discharge Plan Visit Data Chief Complaint: Stroke Alert ED Provider: Graham Poe Discharge Problem: Stroke-like symptoms Patient Disposition: Admitted As Inpatient Discharge Instructions Interventions: ED Discharge Assessment Last Done: 07/19/21 16:12
[2021-07-19 12:43] LABS: Basophils # (auto) 0.02 K/uL (0-0.2); Basophils % (auto) 0.2 %; Eosinophils # (auto) 0.06 K/uL (0-0.5); Eosinophils % (auto) 0.7 %; Hematocrit (blood only) 34.7 % (37-47); Hemoglobin 11.6 g/dL (12.0-16.0); Immature Granulocytes # (auto) 0.05 K/uL (0.00-0.02); Immature Granulocytes % (auto) 0.6 %; Lymphocytes # (auto) 1.64 K/uL (1.2-3.4); Lymphocytes % (auto) 18.5 %; Mean Corpuscular Hemoglobin 31.6 pg (25-34); Mean Corpuscular Hgb Conc 33.4 g/dL (32-36); Mean Corpuscular Volume 94.6 fL (80-100); Mean Platelet Volume 10.4 fL (7.4-10.4); Monocytes # (auto) 0.46 K/uL (0.11-0.59); Monocytes % (auto) 5.2 %; Neutrophils # (auto) 6.65 K/uL (1.4-6.5); Neutrophils % (auto) 74.8 %; Platelet Count 268 K/uL (130-400); RDW Coefficient of Variation 14.1 % (11.5-14.5); RDW Standard Deviation 48.8 fL (36.4-46.3); Red Blood Count 3.67 M/uL (4.2-5.4); White Blood Count 8.88 K/uL (4.8-10.8)
--- NOTE | 2021-07-19 12:43 | CT Scan Report ---
CT SCAN OF THE BRAIN WITHOUT IV CONTRAST CLINICAL HISTORY: Strokelike symptoms. COMPARISON STUDY: No priors. TECHNIQUE: Unenhanced axial CT scan of the brain is performed from the vertex to the skull base. A do se lowering technique was utilized adhering to the principles of ALARA. CT DOSE: 537.48 mGy.cm FINDINGS: Brain parenchyma: There is a 2.8 x 2.4 cm calcified extra-axial lesion the right posterior fossa william g the inferior aspect of the tentorium cerebelli. This causes mild mass effect upon the right cerebel lar hemisphere. There is no associated edema. There are age-related involutional changes noting mode rate subcortical and periventricular microangiopathic change. There is no hemorrhage or evidence of a cute territorial ischemia by CT criteria. Merrill-white matter differentiation is preserved. No extra-ax ial fluid collection is seen. Ventricles, sulci, cisterns: Prominent secondary to involutional change. Intracranial vasculature: There is atherosclerotic calcification of the cavernous carotid and vertebr al arteries. Calvarium: Unremarkable. Sinuses and mastoids: There is mild mucosal thickening and secretions seen within the right sphenoid sinus. The remaining visualized paranasal sinuses are clear. The mastoid air cells are well pneumatiz ed. Orbits: The bony orbits are grossly intact. There are bilateral ocular lens implants. IMPRESSION: 1. There is no hemorrhage, midline shift, or evidence of acute territorial ischemia by CT criteria. 2. There is a 2.8 cm calcified extra-axial mass lesion in the right posterior fossa along the inferio r aspect of the tentorium cerebelli. The appearance is typical for a meningioma, and this causes mild mass effect upon the adjacent right cerebellar hemisphere. No edema is identified. ACT 112: Negative or not required by law. Electronically signed by: Sridhar Porter M.D. 07/19/2021 12:42 PM
[2021-07-19 12:52] LABS: iSTAT Hemoglobin 11.9 g/dl (12.0-16.0); iSTAT Ionized Calcium 1.38 mmol/l (1.12-1.32); iSTAT Potassium 4.2 mmol/L (3.3-5.0)
[2021-07-19 13:00] LABS: Partial Thromboplastin Ratio 0.9; Partial Thromboplastin Time 22.6 Seconds (21.0-31.0); Prothrombin Time 10.2 Seconds (9.0-12.0)
[2021-07-19 13:08] LABS: Alanine Aminotransferase 17 U/L (12-78); Albumin Level 3.8 gm/dl (3.4-5.0); Aspartate Aminotransferase 14 U/L (15-37); Blood Urea Nitrogen 15 mg/dl (7-18); Calcium 10.7 mg/dl (8.5-10.1); Carbon Dioxide 26 mmol/L (21-32); Chloride 103 mmol/L (98-107); Creatinine Clr Calc Pharmacy 39.6 ml/min; Est GFR (African American) 59.7 ml/min; Est GFR (Non-African American) 51.5 ml/min; Glucose 95 mg/dl (70-99); Magnesium 1.7 mg/dl (1.8-2.4); Potassium 4.2 mmol/L (3.5-5.1); Sodium 135 mmol/L (136-145)
--- NOTE | 2021-07-19 13:12 | XRay Report ---
SINGLE VIEW CHEST CLINICAL HISTORY: Strokelike symptoms. FINDINGS: An AP, portable, upright chest radiograph is compared to chest x-ray and chest CT dated . The patient is status post midline sternotomy. The heart is enlarged noting atherosclerotic calcification of the thoracic aorta. The pulmonary vascular structures noncongested. Scarring/atelect asis is noted at the lung bases. The lungs and pleural spaces are otherwise clear. No pneumothorax is seen. The skeletal structures are osteopenic. The bony thorax is grossly intact. Advanced arthritic changes noted in the shoulders. Superior subluxation of the humeral heads suggests chronic bilateral rotator cuff injuries. IMPRESSION: Cardiomegaly with no acute cardiopulmonary abnormality. ACT 112: Negative or not required by law. Electronically signed by: Sridhar Porter M.D. 07/19/2021 1:10 PM
[2021-07-19 13:13] LABS: Albumin Globulin Ratio 1.2 (0.9-2); Alkaline Phosphatase 38 U/L (45-117); Bilirubin,Total 0.7 mg/dl (0.2-1); Globulin 3.3 gm/dl (2.5-4.0); Total Protein 7.1 gm/dl (6.4-8.2); Troponin I < 0.015 ng/ml (0-0.045)
[2021-07-19] MEDS: MAGNESIUM SULFATE / D5W 1 GM/100 ML BAG IV SCH ×2 (14:09→15:20)
--- NOTE | 2021-07-19 14:30 | History & Physical Report ---
Date of Service July 19, 2021 Assessment & Plan (1) TIA (transient ischemic attack): Plan: Symptoms resolved on arrival no tPA with rapid resolution of symptoms- NIHSS- 0 - CT negative - MRI pending - No ASA as per HPI- await neurology recommendations - Not on statin - PT/OT consult - passed swallow screen at bedside no residual facial droop (2) Paroxysmal A-fib: Plan: Paroxysmal - mag 1.7 on admission- replaced with 2GM - rate control - continue amiodarone- dose verified every other day - continue metoprolol succinate 25mg daily - if rate control needed consider increase to 50mg daily (3) Left shoulder pain: Plan: Chronic rotator cuff injuries (4) S/P IVC filter: Plan: remains in place since 2006 (5) Anxiety: Plan: continue buspar and ativan - will need for PRN (6) Hyperparathyroidism: Plan: Continue with home medications (7) Hypothyroid: Plan: Continue with synthroid (8) Hypertension: Plan: Well controlled continue- amlodopine, metoprolol, and lisinopril (9) Coronary artery disease: Plan: As above - not on statin or ASA (10) Multiple myeloma: Plan: Continue daily prednisone (11) Hx of deep venous thrombosis: Plan: As above - with IVC filter (12) CHF (congestive heart failure): Plan: ECHO pending for updated EF - no edema and pulmonary clear on room air History of Present Illness Primary Care Provider: [facility], [facility] 86 YOF with past medical history of: 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 Patient was hospitalized in 2017 with acute GI bleed from multiple sources including an AVM ulcer and rectal mass Prior history of EF 20-25% although recent notes elude to her function returning to normal unable to find recent ECHO in our system. Patient was brought to the EMD today as she was sitting on the porch with her son and around 11:30 she had acute onset of slurred speech, right facial droop, and word finding difficulties per the son. He notified the nursing staff at [facility], where the patient is a resident, and she was brought here via EMS. On time of arrival in the EMD the patient symptoms were mostly gone; she was stroke alerted and telestroke consult was performed with Dr. Poe ([facility]) and Dr. Ibarra (stroke [facility] [place]), she had a CT scan of the head performed without contrast(reported allergy); she was deemed NOT a tPA candidate. She did not receive an ASA secondary to GI bleed/ulcerations as above. Patient is in Afib at this time. Patient will be admitted to continue neurological evaluation and completion of MRI. Will obtain ECHO, neurology consult. NIHSS - 0 on my evaluation, son also reports that she is now in her normal function. Patient is mostly in a wheel chair but does walk with one person assist and her walker. Allergies Allergy/AdvReac Type Severity Reaction Status Date / Time aspartame Allergy Mild HEADACHES, Verified 07/19/21 14:02 N/V shellfish derived Allergy Mild HEADACHE Verified 07/19/21 14:02 AND N/V Cipro Allergy Unknown ELEVATED Verified 09/20/17 17:44 BLOOD PRESSURE ciprofloxacin Allergy Unknown ELEVATED Verified 07/19/21 14:02 BLOOD PRESSURE Iodinated Contrast Media Allergy Unknown R/T Verified 07/19/21 14:02 SHELLFISH ALLERGY nitrofurantoin Allergy Unknown NAUSEA,ABDOMINAL Verified 07/19/21 14:02 PAIN Quinolones Allergy Unknown CIPRO - Verified 07/19/21 14:02 ELEVATED BLOOD PRESSURE Sulfa (Sulfonamide Allergy Unknown UNKNOWN - Verified 07/19/21 14:02 Antibiotics) PT STATES DOES NOT REMEMBER Home Medications Medication Instructions Recorded Confirmed Type acetaminophen 500 mg tablet 500 mg PO Q4 PRN #0 tab 09/13/17 07/19/21 History cyanocobalamin (vitamin B-12) 1,000 mcg PO DAILY #0 09/13/17 07/19/21 History 1,000 mcg tablet (Vitamin B-12) glucosamine sulfate 500 mg tablet 1,000 mg PO DAILY #0 09/13/17 07/19/21 History (Glucosamine) levothyroxine 75 mcg tablet 75 mcg PO DAILY #0 09/13/17 07/19/21 History ondansetron 8 mg disintegrating 8 mg PO TID PRN #0 tab 09/13/17 07/19/21 History tablet polyethylene glycol 3350 17 gram 17 g PO DAILY PRN #0 09/13/17 07/19/21 History oral powder packet (Miralax) prednisone 5 mg tablet 5 mg PO DAILY #0 tab 09/13/17 07/19/21 History potassium chloride 20 mEq 20 meq PO DAILY #0 tab 05/14/18 07/19/21 History tablet,extended release ferrous sulfate 325 mg (65 mg 325 mg PO DAILY 03/08/19 07/19/21 History iron) tablet metoprolol succinate 25 mg 25 mg PO DAILY 07/27/19 07/19/21 History tablet,extended release 24 hr lisinopril 2.5 mg tablet 2.5 mg PO DAILY #30 tab 08/21/19 07/19/21 Rx lorazepam 0.5 mg tablet 0.5 mg PO Q8H PRN 08/23/19 07/19/21 History amlodipine 5 mg tablet 5 mg PO DAILY #90 tab 09/01/19 07/19/21 Rx furosemide 20 mg tablet 20 mg PO .COMPLEX #30 tab 09/01/19 07/19/21 Rx buspirone 5 mg tablet 5 mg PO TID #90 tab 10/02/19 07/19/21 Rx ascorbic acid (vitamin C) 250 mg 250 mg PO DAILY 10/10/19 07/19/21 History tablet dextromethorphan-guaifenesin 30 1 tab PO Q12H PRN 10/20/19 07/19/21 History mg-600 mg tablet extended [id number] hr (Mucinex DM) hydrocortisone 2.5 % topical cream 1 applic AR BID PRN 10/20/19 07/19/21 History with perineal applicator (Procto-Med HC) nitroglycerin 0.4 mg sublingual 0.4 mg SUBLINGUAL DIRECTED PRN 10/20/19 07/19/21 History tablet amiodarone 200 mg tablet 100 mg PO .COMPLEX tab 11/21/19 07/19/21 History pantoprazole 40 mg tablet,delayed 40 mg PO BID #0 tab 04/18/20 07/19/21 History release (Protonix) calcium carbonate 600 mg calcium 600 mg PO DAILY #90 tab 11/28/20 07/19/21 Rx (1,500 mg) tablet (Calcium) calcitriol 0.5 mcg capsule 1.5 mcg PO DAILY #90 cap 02/17/21 07/19/21 Rx cholecalciferol (vitamin D3) 50 50 mcg PO DAILY #30 cap 03/24/21 07/19/21 Rx mcg (2,000 unit) capsule cinacalcet 30 mg tablet (Sensipar) 30 mg PO BID #60 tab 05/19/21 07/19/21 Rx cephalexin 500 mg capsule 500 mg PO BID #60 cap 06/04/21 07/19/21 Rx sucralfate 1 gram tablet 1 g PO QID PRN #120 tab 07/17/21 07/19/21 Rx Past Med/Surg History Medical History (Updated 07/19/21 @ 14:56 by OSCAR Wooten) Acute GI bleeding (2017) Acute hip pain Recommend current treatment. Ice/heat, NSAIDs, PT as tolerated, WBAT with walker assistance. Okay from ortho standpoint for discharge when medically stable. Recommend following up in approximately 2-4 weeks for re-eval. Adenocarcinoma of rectum (2017) "Diarrhea and rectal bleeding Status post colonoscopy and biopsy 02/09/2017 showing high-grade dysplasia suspicious for adenocarcinoma Status post transrectal resection 02/15/2017 Stage pT2 cN0M0 Plan for combined radiation and chemotherapy, chemotherapy comprised of Xeloda Status post completion of radiation therapy 05/17/2017. She received 5040 cGy. Dosage of Xeloda was adjusted due to side effect of diarrhea" On 05/26/17 13:31 Bhavani Woods wrote "Diarrhea and rectal bleeding Status post colonoscopy and biopsy 02/09/2017 showing high-grade dysplasia suspicious for adenocarcinoma Status post transrectal resection 02/15/2017 Stage pT2 cN0M0 Plan for combined radiation and chemotherapy, chemotherapy comprised of Xeloda Status post completion of radiation therapy 05/17/2017. She received 5040 cGy." On 03/16/17 13:26 Bhavani Woods wrote "Diarrhea and rectal bleeding Status post colonoscopy and biopsy 02/09/2017 showing high-grade dysplasia suspicious for adenocarcinoma Status post transrectal resection 02/15/2017 Stage pT2 cN0M0 Plan for combined radiation and chemotherapy, chemotherapy comprised of Xeloda" Anxiety Arthritis Atrial fibrillation with RVR Blood dyscrasia Cancer CHF (congestive heart failure) Chronic steroid use Chronic systolic heart failure Constipation Coronary artery disease DVT (deep venous thrombosis) Electrolyte abnormality Fatigue Gastric ulcer (2014) Gastrointestinal disorder GI bleed [place] filter in place High cholesterol History of GI bleed History of parathyroid disease Hx of deep venous thrombosis Hypertension Multiple myeloma Osteoporosis Pneumonia (09/2019) Thrombophlebitis Thyroid disease Urinary tract infection Surgical History History of appendectomy History of bilateral salpingo-oophorectomy History of left hip hemiarthroplasty History of rectal surgery S/P CABG (coronary artery bypass graft) (2006) S/P hysterectomy S/P IVC filter Family History Other Coronary heart disease Heart failure Denies family history of Ovarian cancer Prostate cancer Myocardial infarction Breast cancer Colorectal cancer Social History Smoking Status: Never smoker Second Hand Exposure: No; Hx Alcohol Use: No Hx Substance Use: No Preferred Language: Mohawk Communication Ability: Effective Visual Impairment: Partially Limited Hearing Ability: Hard of Hearing Surgical Services Tech Required: No Beliefs That Will Affect Care: None marital status: Current Living Situation: Personal Care Facility current occupational status: retired 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 How many Children do You have: 3 Feels Safe at Home: Yes Childhood Exposure to Second-Hand Smoke: No during the past year weight has: remained stable Dental Care, Regularly: Yes Physical Activity Frequency: Does not Exercise Seatbelt Use: always Sunscreen Use: Yes Assistive Devices: Walker Review of Systems Review of Systems: REVIEW OF SYSTEMS: Constitutional: No fever, sweats or chills Eyes: No diplopia, no worsening or blurred vision ENT: (+) difficulty hearing, no trouble swallowing Respiratory: No cough, sputum, dyspnea at rest or on exertion Cardiovascular:(+) afib, No chest pain, tightness or palpitations Abdomen: No pain, nausea, vomiting, diarrhea or constipation Musculoskeletal: (+) bilateral shoulder pain and limited ROM, NO calf pain, swelling Neurologic: No new weakness, numbness/tingling, or balance problems Psychiatric: (+) anxiety or depression Skin: No rash or itch Physical Exam Physical Exam: PHYSICAL EXAM: General: awake, alert, no apparent distress Head: Normocephalic, atraumatic ENT: PERRLA, EOMI, no pharyngeal exudate, mucous membranes moist Neuro: AAO x 3, speech clear and appropriate, strength intact bilaterally 5/5, sensation intact and equal all extremities and dermatomes, no pronator drift, no word finding difficulty, no overshoot with finger to nose, no coordination difficulty, Chest: equal rise and fall of the chest, no accessory muscle use, no heaves or thrills, Clear to auscultation, on room air, Cardiac: irregular rate and rhythm, telemetry reviewed- afib, skin warm dry, cap refill <3 seconds, peripheral pulses +2 no JVD, no murmur, trace edema GI: NABS x 4 quadrants, soft, nontender to palpation, no rebound, guarding or tenderness : Spontaneously voiding (pure wick), no pain, no CVA tenderness, Extremities: Normal inspection, no peripheral edema or erythema, calfs nontender to palpation Psych: Normal mood and affect Skin: no rash or erythema Results & Data Results & Data ([facility]) Vital Signs (Past 12 Hours) Vital Signs Pulse Pulse Resp BP BP Pulse Ox 07/19/21 13:45 78 21 141/65 H 97 07/19/21 12:48 21 155/83 H 97 07/19/21 12:22 93 H 14 157/85 H 97 Laboratory Results Abnormal Labs 07/19/21 07/19/21 07/19/21 12:32 12:32 12:32 RBC 3.67 L Hgb 11.6 L POC Hgb Hct 34.7 L POC Hct RDW Std Deviation 48.8 H Neut # (Auto) 6.65 H Immature Gran # (Auto) 0.05 H Sodium 135 L POC Chloride POC Anion Gap POC Glucose (other) Calcium 10.7 H POC Ioniz Calcium Patrizia Magnesium 1.7 L AST 14 L Alkaline Phosphatase 38 L Antibody Screen POSITIVE A 07/19/21 12:39 RBC Hgb POC Hgb 11.9 L Hct POC Hct 35 L RDW Std Deviation Neut # (Auto) Immature Gran # (Auto) Sodium POC Chloride 99 L POC Anion Gap 15.0 L POC Glucose (other) 101 H Calcium POC Ioniz Calcium Patrizia 1.38 H Magnesium AST Alkaline Phosphatase Antibody Screen Diagnostic Findings Head CT 07/19/21 12:16 CT SCAN OF THE BRAIN WITHOUT IV CONTRAST CLINICAL HISTORY: Strokelike symptoms. COMPARISON STUDY: No priors. TECHNIQUE: Unenhanced axial CT scan of the brain is performed from the vertex to the skull base. A dose lowering technique was utilized adhering to the principles of ALARA. CT DOSE: 537.48 mGy.cm FINDINGS: Brain parenchyma: There is a 2.8 x 2.4 cm calcified extra-axial lesion the right posterior fossa along the inferior aspect of the tentorium cerebelli. This causes mild mass effect upon the right cerebellar hemisphere. There is no associated edema. There are age-related involutional changes noting moderate subcortical and periventricular microangiopathic change. There is no hemorrhage or evidence of acute territorial ischemia by CT criteria. Merrill-white matter differentiation is preserved. No extra-axial fluid collection is seen. Ventricles, sulci, cisterns: Prominent secondary to involutional change. Intracranial vasculature: There is atherosclerotic calcification of the cavernous carotid and vertebral arteries. Calvarium: Unremarkable. Sinuses and mastoids: There is mild mucosal thickening and secretions seen within the right sphenoid sinus. The remaining visualized paranasal sinuses are clear. The mastoid air cells are well pneumatized. Orbits: The bony orbits are grossly intact. There are bilateral ocular lens implants. IMPRESSION: 1. There is no hemorrhage, midline shift, or evidence of acute territorial ischemia by CT criteria. 2. There is a 2.8 cm calcified extra-axial mass lesion in the right posterior fossa along the inferior aspect of the tentorium cerebelli. The appearance is typical for a meningioma, and this causes mild mass effect upon the adjacent right cerebellar hemisphere. No edema is identified. ACT 112: Negative or not required by law. Electronically signed by: Sridhar Porter M.D. 07/19/2021 12:42 PM Chest X-Ray 07/19/21 12:17 SINGLE VIEW CHEST CLINICAL HISTORY: Strokelike symptoms. FINDINGS: An AP, portable, upright chest radiograph is compared to chest x-ray and chest CT dated 10/20/2019. The patient is status post midline sternotomy. The heart is enlarged noting atherosclerotic calcification of the thoracic aorta. The pulmonary vascular structures noncongested. Scarring/atelectasis is noted at the lung bases. The lungs and pleural spaces are otherwise clear. No pneumothorax is seen. The skeletal structures are osteopenic. The bony thorax is grossly intact. Advanced arthritic changes noted in the shoulders. Superior subluxation of the humeral heads suggests chronic bilateral rotator cuff injuries. IMPRESSION: Cardiomegaly with no acute cardiopulmonary abnormality. ACT 112: Negative or not required by law. Electronically signed by: Sridhar Porter M.D. 07/19/2021 1:10 PM Medications Administered Home Medications acetaminophen 500 mg tablet 500 mg PO Q4 PRN #0 tab 09/13/17 [History Confirmed 07/19/21] cyanocobalamin (vitamin B-12) 1,000 mcg tablet (Vitamin B-12) 1,000 mcg PO DAILY #0 09/13/17 [History Confirmed 07/19/21] glucosamine sulfate 500 mg tablet (Glucosamine) 1,000 mg PO DAILY #0 09/13/17 [History Confirmed 07/19/21] levothyroxine 75 mcg tablet 75 mcg PO DAILY #0 09/13/17 [History Confirmed 07/19/21] ondansetron 8 mg disintegrating tablet 8 mg PO TID PRN #0 tab 09/13/17 [History Confirmed 07/19/21] polyethylene glycol 3350 17 gram oral powder packet (Miralax) 17 g PO DAILY PRN #0 09/13/17 [History Confirmed 07/19/21] prednisone 5 mg tablet 5 mg PO DAILY #0 tab 09/13/17 [History Confirmed 07/19/21] potassium chloride 20 mEq tablet,extended release 20 meq PO DAILY #0 tab 05/14/18 [History Confirmed 07/19/21] ferrous sulfate 325 mg (65 mg iron) tablet 325 mg PO DAILY 03/08/19 [History Confirmed 07/19/21] metoprolol succinate 25 mg tablet,extended release 24 hr 25 mg PO DAILY 07/27/19 [History Confirmed 07/19/21] lisinopril 2.5 mg tablet 2.5 mg PO DAILY #30 tab 08/21/19 [Rx Confirmed 07/19/21] lorazepam 0.5 mg tablet 0.5 mg PO Q8H PRN 08/23/19 [History Confirmed 07/19/21] amlodipine 5 mg tablet 5 mg PO DAILY #90 tab 09/01/19 [Rx Confirmed 07/19/21] furosemide 20 mg tablet 20 mg PO .COMPLEX #30 tab 09/01/19 [Rx Confirmed 07/19/21] buspirone 5 mg tablet 5 mg PO TID #90 tab 10/02/19 [Rx Confirmed 07/19/21] ascorbic acid (vitamin C) 250 mg tablet 250 mg PO DAILY 10/10/19 [History Confirmed 07/19/21] dextromethorphan-guaifenesin 30 mg-600 mg tablet extended hr (Mucinex DM) 1 tab PO Q12H PRN 10/20/19 [History Confirmed 07/19/21] hydrocortisone 2.5 % topical cream with perineal applicator (Procto-Med HC) 1 applic AR BID PRN 10/20/19 [History Confirmed 07/19/21] nitroglycerin 0.4 mg sublingual tablet 0.4 mg SUBLINGUAL DIRECTED PRN 10/20/19 [History Confirmed 07/19/21] amiodarone 200 mg tablet 100 mg PO .COMPLEX tab 11/21/19 [History Confirmed 07/19/21] pantoprazole 40 mg tablet,delayed release (Protonix) 40 mg PO BID #0 tab 04/18/20 [History Confirmed 07/19/21] calcium carbonate 600 mg calcium (1,500 mg) tablet (Calcium) 600 mg PO DAILY #90 tab 11/28/20 [Rx Confirmed 07/19/21] calcitriol 0.5 mcg capsule 1.5 mcg PO DAILY #90 cap 02/17/21 [Rx Confirmed 07/19/21] cholecalciferol (vitamin D3) 50 mcg (2,000 unit) capsule 50 mcg PO DAILY #30 cap 03/24/21 [Rx Confirmed 07/19/21] cinacalcet 30 mg tablet (Sensipar) 30 mg PO BID #60 tab 05/19/21 [Rx Confirmed 07/19/21] cephalexin 500 mg capsule 500 mg PO BID #60 cap 06/04/21 [Rx Confirmed 07/19/21] sucralfate 1 gram tablet 1 g PO QID PRN #120 tab 07/17/21 [Rx Confirmed 07/19/21] Discontinued Medications Magnesium Sulfate/Dextrose (Magnesium Sulfate / D5w) 1 gm in 100 mls @ 200 mls/hr IV Q30M TERESA Stop: 07/19/21 14:15 Last Admin: 07/19/21 14:09 Dose: 200 mls/hr Documented by: [id number] ECG Additional Comments: Atrial fibrillation Nonspecific ST and T wave abnormality Abnormal ECG When compared with ECG of 20-OCT-2019 04:59, Atrial fibrillation has replaced Sinus rhythm T wave inversion now evident in Lateral leads Code Status & VTE Plan Code Status CODE: DNR/DNI VTE: SCDs, Heparin Supervising Physician Co-Signing Physician Notes Pt seen/examined following SUPPORT ENGINEER Terry Cantu. Orders and plan of admission reviewed. 86 y/o F Hx HTN, hypothyroidism, anxiety/depression, DVTs, PAF, CAD, CHF, colon CA - remission, multiple myeloma - treating with steroids only. She is not anticoagulated or taking ASA for PAF or DVTs as she has had multiple GI bleeds due to AVMs. She presents with acute onset of slurred speech and a R facial droop. Initial imaging is negative. We are pending an MRI. Labs are notable for mild anemia - improved from baseline and normocytic - and hypomagnesemia. An EKG confirmed AF. The pt's symptoms resolved completely on arrival to the ER. General: AAO x 3, no distress ENT: No erythema or exudates, no thrush Eyes: DYANA, EOMI Head and neck: Normocephalic, atraumatic, No JVD, neck is supple. Chest/heart: Nontender, S1,2, RRR, no murmurs, no gallops Lungs: CTAB, no wheezing or crackles Abdomen: Nontender, nondistended, BS+ Neuro: AAO x 3, speech is clear, no unilateral weakness or loss of sensation, coordination intact Musculoskeletal: No joint inflammation, muscle tenderness, FROM Skin: No acute rashes or ulcers Extremities: No clubbing, cyanosis, edema P: 1) TIA - unclear what course of action to pursue here as she does not tolerate ASA or anticoagulation. She could likely be placed on a statin, although considering her history we would suspect she is statin intolerant. We will await the results of additional imaging to decide on treatment as we would not want to induce an acute GI bleed. 2) AF - rate is controlled - cont amiodarone, metoprolol 3) HTN - we will hold Norvasc, Lisinopril 4) CAD - no evidence of ACS - cont metoprolol - she does not tolerate ASA and unclear if she tolerates statins 5) Hypothyroidism - cont Synthroid 6) Multiple myeloma - cont steroids to avoid adrenal crisis 7) CHF - euvolemic on admission - holding Lasix pending AM reassessment Full code - SCDs Total time for this admit including review of labs, meds, imaging, records - discussion with pt and ER attending - 40 min PG Care Time/CCT Total # of Minutes Spent Total Time Spent with Patient: Total time spent is greater than 50% in coordination of care (as documented) at patient's floor/unit and/or counseling patient: Coding Level of Care Code INT OBSERVATION CARE 70M LVL 3 Diagnoses TIA (transient ischemic attack) G45.9 Paroxysmal A-fib I48.0 Left shoulder pain M25.512 S/P IVC filter Z95.828 Anxiety F41.9 Hyperparathyroidism E21.3 Hypothyroid E03.9 Hypertension I10 Coronary artery disease I25.10 Multiple myeloma C90.01 Multiple myeloma remission status: in remission Hx of deep venous thrombosis Z86.718 CHF (congestive heart failure) I50.9 (1) Multiple myeloma Multiple myeloma remission status: in remission Qualified Code(s): C90.01 - Multiple myeloma in remission
[2021-07-19] MEDS ORDERED: PHARMACIST DISCHARGE MED REC CONSULT PRN (17:07)
[2021-07-19] MEDS ORDERED: NITROGLYCERIN SL 0.4 MG/TAB TAB SL PRN ×2 (17:07)
[2021-07-19] MEDS ORDERED: SUCRALFATE 1 GM TAB PO PRN (17:07)
[2021-07-19] MEDS ORDERED: POLYETHYLENE (MIRALAX) 17 GM PACK PO PRN (17:07)
[2021-07-19] MEDS ORDERED: LORazepam 0.5 MG TAB PO PRN (17:07)
[2021-07-19] MEDS: PANTOprazole 40 MG TAB PO SCH (21:03)
[2021-07-19] MEDS: HEPARIN SOD 5,000 UNIT/0.5 ML VIAL SQ SCH (21:04)
[2021-07-19] MEDS: CINACALCET HCL 30 MG TAB PO SCH (21:04)
[2021-07-19] MEDS: busPIRone 5 MG TAB PO SCH (21:04)
[2021-07-20] MEDS: LEVOTHYROXINE SODIUM 75 MCG TABLET PO SCH (05:40)
[2021-07-20 06:10] LABS: Basophils # (auto) 0.04 K/uL (0-0.2); Basophils % (auto) 0.7 %; Eosinophils # (auto) 0.14 K/uL (0-0.5); Eosinophils % (auto) 2.5 %; Hematocrit (blood only) 31.3 % (37-47); Hemoglobin 10.4 g/dL (12.0-16.0); Immature Granulocytes # (auto) 0.03 K/uL (0.00-0.02); Immature Granulocytes % (auto) 0.5 %; Lymphocytes # (auto) 1.69 K/uL (1.2-3.4); Lymphocytes % (auto) 29.8 %; Mean Corpuscular Hemoglobin 31.5 pg (25-34); Mean Corpuscular Hgb Conc 33.2 g/dL (32-36); Mean Corpuscular Volume 94.8 fL (80-100); Mean Platelet Volume 10.4 fL (7.4-10.4); Monocytes # (auto) 0.58 K/uL (0.11-0.59); Monocytes % (auto) 10.2 %; Neutrophils % (auto) 56.3 %; Platelet Count 234 K/uL (130-400); RDW Standard Deviation 48.7 fL (36.4-46.3); White Blood Count 5.68 K/uL (4.8-10.8)
[2021-07-20 06:20] LABS: Prothrombin Time 10.4 Seconds (9.0-12.0)
[2021-07-20 06:38] LABS: BUN Creatinine Ratio 20.9 (10-20); Calcium 9.2 mg/dl (8.5-10.1); Creatinine Clr Calc Pharmacy 47.3 ml/min; Est GFR (African American) 83.8 ml/min; Est GFR (Non-African American) 72.3 ml/min; Potassium 3.5 mmol/L (3.5-5.1)
[2021-07-20] MEDS: lisinopril 2.5 MG TAB PO SCH (08:42)
[2021-07-20] MEDS: ASCORBIC ACID 500 MG TAB PO SCH (08:42)
[2021-07-20] MEDS: CHOLECALCIFEROL 1,000 UNITS 25 MCG TAB PO SCH (08:44)
[2021-07-20] MEDS: CINACALCET HCL 30 MG TAB PO SCH ×2 (08:44→20:32)
[2021-07-20] MEDS: amLODIPine BESYLATE 5 MG TAB PO SCH (08:45)
[2021-07-20] MEDS: FERROUS SULFATE 325 MG TAB PO SCH (08:45)
[2021-07-20] MEDS: busPIRone 5 MG TAB PO SCH ×3 (08:45→20:32)
[2021-07-20] MEDS: CYANOCOBALAMIN 500 MCG TABLET (VITAMIN B-12) PO SCH (08:45)
[2021-07-20] MEDS: CALCIUM CARBONATE 1250MG TAB PO SCH (08:46)
[2021-07-20] MEDS: PANTOprazole 40 MG TAB PO SCH ×2 (08:46→20:32)
[2021-07-20] MEDS: predniSONE 5 MG TAB PO SCH (08:46)
[2021-07-20] MEDS: CALCITRIOL 0.25 MCG CAPSULE PO SCH (08:46)
[2021-07-20] MEDS: HEPARIN SOD 5,000 UNIT/0.5 ML VIAL SQ SCH ×2 (08:47→20:33)
[2021-07-20] MEDS: METOPROLOL SUCC 25MG EXT REL TAB PO SCH (08:49)
[2021-07-20] MEDS ORDERED: amLODIPine BESYLATE 5 MG TAB PO SCH (09:00)
[2021-07-20] MEDS ORDERED: lisinopril 2.5 MG TAB PO SCH (09:00)
[2021-07-20] MEDS ORDERED: AMIODARONE 200 MG TAB PO SCH (09:00)
--- NOTE | 2021-07-20 09:23 | Neurology Consultation ---
Date of Consultation July 20, 2021 Assessment & Plan (1) TIA (transient ischemic attack): TIA localizing to the left middle cerebral artery territory, presenting with right-sided weakness, dysarthria, aphasia. Symptoms have not recurred. Patient appears to be neurologically stable this morning. Patient has a history of paroxysmal atrial fibrillation and is not on anticoagulation due to history of GI bleeding a few years ago. Additional stroke risk factors for this patient include her history of multiple myeloma and hypertension. As patient has an allergy to iodinated contrast media would recommend a noncontrast brain MRI, MRA of the head, and carotid ultrasound. Would also recommend an echocardiogram with bubble study. Now that the patient has had a TIA in the context of her history of atrial fibrillation, the risk of recurrent TIA or stroke is significantly elevated and may exceed her GI bleeding risk. Would consider anticoagulating this patient with close monitoring for GI bleeding. May need an up-to-date GI evaluation. Would also ask cardiology for an opinion regarding this issue. I am not sure what else could be done to significantly lower her stroke risk going forward. I do not know if she would be an appropriate candidate for left atrial appendage closure. A recent lipid panel is within normal limits, I doubt a statin would make much of an impact going forward on her stroke risk. History of Present Illness Reason for Consultation: TIA Requesting Physician: OSCAR Anaya Attending Physician: Nilesh Horne History of Present Illness The patient is an 86-year old female with a chief complaint of slurred speech, inability to speak, and right facial droop that was noted yesterday morning at around 11:20 AM. The patient reports that her symptoms fluctuated a bit but nearly resolved by the time she was evaluated in the emergency department. She did have a telestroke consultation with a specialist at [facility] although given the minimal degree of her symptoms, TPA was not administered. A CT of the head was negative for hemorrhage or acute process. The study did reveal a 2.8 cm calcified extra-axial mass in the right posterior fossa along the inferior aspect of the tentorium cerebelli consistent with a meningioma. Patient has an allergy to iodinated contrast media and CT angiography was not completed. Past medical history notable for atrial fibrillation, not anticoagulated in light of history of multiple GI bleeds and fall risk. History also notable for multiple DVTs, history of inferior vena cava filter, multiple myeloma, coronary artery bypass grafting. Patient is been following with orthopedics for chronic end-stage right rotator cuff arthropathy. Follows with cardiology in light of her history of paroxysmal atrial fibrillation, coronary artery disease, history of coronary artery bypass grafting, and congestive heart failure. Follows with endocrinology for hyperparathyroidism and osteoporosis. 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 History of rectal carcinoma noted as well. The patient denies any recurrence of her neurological symptoms this morning. Allergies Allergy/AdvReac Type Severity Reaction Status Date / Time aspartame Allergy Mild HEADACHES, Verified 07/19/21 14:02 N/V shellfish derived Allergy Mild HEADACHE Verified 07/19/21 14:02 AND N/V Cipro Allergy Unknown ELEVATED Verified 09/20/17 17:44 BLOOD PRESSURE ciprofloxacin Allergy Unknown ELEVATED Verified 07/19/21 14:02 BLOOD PRESSURE Iodinated Contrast Media Allergy Unknown R/T Verified 07/19/21 14:02 SHELLFISH ALLERGY nitrofurantoin Allergy Unknown NAUSEA,ABDOMINAL Verified 07/19/21 14:02 PAIN Quinolones Allergy Unknown CIPRO - Verified 07/19/21 14:02 ELEVATED BLOOD PRESSURE Sulfa (Sulfonamide Allergy Unknown UNKNOWN - Verified 07/19/21 14:02 Antibiotics) PT STATES DOES NOT REMEMBER Home Medications Medication Instructions Recorded Confirmed Type acetaminophen 500 mg tablet 500 mg PO Q4 PRN #0 tab 09/13/17 07/19/21 History cyanocobalamin (vitamin B-12) 1,000 mcg PO DAILY #0 09/13/17 07/19/21 History 1,000 mcg tablet (Vitamin B-12) glucosamine sulfate 500 mg tablet 1,000 mg PO DAILY #0 09/13/17 07/19/21 History (Glucosamine) levothyroxine 75 mcg tablet 75 mcg PO DAILY #0 09/13/17 07/19/21 History ondansetron 8 mg disintegrating 8 mg PO TID PRN #0 tab 09/13/17 07/19/21 History tablet polyethylene glycol 3350 17 gram 17 g PO DAILY PRN #0 09/13/17 07/19/21 History oral powder packet (Miralax) prednisone 5 mg tablet 5 mg PO DAILY #0 tab 09/13/17 07/19/21 History potassium chloride 20 mEq 20 meq PO DAILY #0 tab 05/14/18 07/19/21 History tablet,extended release ferrous sulfate 325 mg (65 mg 325 mg PO DAILY 03/08/19 07/19/21 History iron) tablet metoprolol succinate 25 mg 25 mg PO DAILY 07/27/19 07/19/21 History tablet,extended release 24 hr lisinopril 2.5 mg tablet 2.5 mg PO DAILY #30 tab 08/21/19 07/19/21 Rx lorazepam 0.5 mg tablet 0.5 mg PO Q8H PRN 08/23/19 07/19/21 History amlodipine 5 mg tablet 5 mg PO DAILY #90 tab 09/01/19 07/19/21 Rx furosemide 20 mg tablet 20 mg PO .COMPLEX #30 tab 09/01/19 07/19/21 Rx buspirone 5 mg tablet 5 mg PO TID #90 tab 10/02/19 07/19/21 Rx ascorbic acid (vitamin C) 250 mg 250 mg PO DAILY 10/10/19 07/19/21 History tablet dextromethorphan-guaifenesin 30 1 tab PO Q12H PRN 10/20/19 07/19/21 History mg-600 mg tablet extended hr (Mucinex DM) hydrocortisone 2.5 % topical cream 1 applic TN BID PRN 10/20/19 07/19/21 History with perineal applicator (Procto-Med HC) nitroglycerin 0.4 mg sublingual 0.4 mg SUBLINGUAL DIRECTED PRN 10/20/19 07/19/21 History tablet amiodarone 200 mg tablet 100 mg PO .COMPLEX tab 11/21/19 07/19/21 History pantoprazole 40 mg tablet,delayed 40 mg PO BID #0 tab 04/18/20 07/19/21 History release (Protonix) calcium carbonate 600 mg calcium 600 mg PO DAILY #90 tab 11/28/20 07/19/21 Rx (1,500 mg) tablet (Calcium) calcitriol 0.5 mcg capsule 1.5 mcg PO DAILY #90 cap 02/17/21 07/19/21 Rx cholecalciferol (vitamin D3) 50 50 mcg PO DAILY #30 cap 03/24/21 07/19/21 Rx mcg (2,000 unit) capsule cinacalcet 30 mg tablet (Sensipar) 30 mg PO BID #60 tab 05/19/21 07/19/21 Rx cephalexin 500 mg capsule 500 mg PO BID #60 cap 06/04/21 07/19/21 Rx sucralfate 1 gram tablet 1 g PO QID PRN #120 tab 07/17/21 07/19/21 Rx Patient History Medical History Acute GI bleeding (2017) Acute hip pain Recommend current treatment. Ice/heat, NSAIDs, PT as tolerated, WBAT with walker assistance. Okay from ortho standpoint for discharge when medically stable. Recommend following up in approximately 2-4 weeks for re-eval. Adenocarcinoma of rectum (2017) "Diarrhea and rectal bleeding Status post colonoscopy and biopsy 02/09/2017 showing high-grade dysplasia suspicious for adenocarcinoma Status post transrectal resection 02/15/2017 Stage pT2 cN0M0 Plan for combined radiation and chemotherapy, chemotherapy comprised of Xeloda Status post completion of radiation therapy 05/17/2017. She received 5040 cGy. Dosage of Xeloda was adjusted due to side effect of diarrhea" On 05/26/17 13:31 Bhavani Woods wrote "Diarrhea and rectal bleeding Status post colonoscopy and biopsy 02/09/2017 showing high-grade dysplasia suspicious for adenocarcinoma Status post transrectal resection 02/15/2017 Stage pT2 cN0M0 Plan for combined radiation and chemotherapy, chemotherapy comprised of Xeloda Status post completion of radiation therapy 05/17/2017. She received 5040 cGy." On 03/16/17 13:26 Bhavani Woods wrote "Diarrhea and rectal bleeding Status post colonoscopy and biopsy 02/09/2017 showing high-grade dysplasia suspicious for adenocarcinoma Status post transrectal resection 02/15/2017 Stage pT2 cN0M0 Plan for combined radiation and chemotherapy, chemotherapy comprised of Xeloda" Anxiety Arthritis Atrial fibrillation with RVR Blood dyscrasia Cancer CHF (congestive heart failure) Chronic steroid use Chronic systolic heart failure Constipation Coronary artery disease DVT (deep venous thrombosis) Electrolyte abnormality Fatigue Gastric ulcer (2014) Gastrointestinal disorder GI bleed Alyse filter in place High cholesterol History of GI bleed History of parathyroid disease Hx of deep venous thrombosis Hypertension Multiple myeloma Osteoporosis Pneumonia (09/2019) Thrombophlebitis Thyroid disease Urinary tract infection Surgical History History of appendectomy History of bilateral salpingo-oophorectomy History of left hip hemiarthroplasty History of rectal surgery S/P CABG (coronary artery bypass graft) (2006) S/P hysterectomy S/P IVC filter Family History Other Coronary heart disease Heart failure Denies family history of Ovarian cancer Prostate cancer Myocardial infarction Breast cancer Colorectal cancer Social History Smoking Status: Never smoker Second Hand Exposure: No; Do You Dip or Chew Tobacco: No; Tobacco Cessation Education Requested by Patient: No Hx Alcohol Use: No Hx Substance Use: No Preferred Language: Tristanian Communication Ability: Effective Visual Impairment: Partially Limited Hearing Ability: Hard of Hearing Dog Obedience Instructor Required: No Beliefs That Will Affect Care: None marital status: Current Living Situation: Personal Care Facility current occupational status: retired 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 [employer]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[employer]IC How many Children do You have: 3 Other Information That Helps Us Care for You: No Feels Safe at Home: Yes Safety Concerns: Feels Safe At This Time Childhood Exposure to Second-Hand Smoke: No during the past year weight has: remained stable Dental Care, Regularly: Yes Physical Activity Frequency: Does not Exercise Seatbelt Use: always Sunscreen Use: Yes Assistive Devices: Walker Review of Systems Constitutional: no fever and no chills Eyes: no blind spots and no diplopia Ear, Nose, Mouth, Throat: no ear pain and no hearing loss Respiratory: no cough and no dyspnea Cardiovascular: no chest pain and no palpitations Gastrointestinal: no constipation and no diarrhea/loose stools Genitourinary: no urinary urgency and no urinary incontinence Musculoskeletal: + joint pain (Chronic right shoulder pain) Integumentary: no rash and no lesions Neurologic: as per Subjective / HPI Psychiatric: no behavioral changes, no depression, no abnormal sleep pattern and no anxiety Hematologic / Lymphatic: no easy bruising and no lymphadenopathy Exam (Neuro) Constitutional: well developed and well nourished; no acute distress Eyes: normal visual villalobos by confrontation, PERRL, normal accommodation and EOM intact bilaterally; no fundoscopic abnormality, no nystagmus and no papilledema Cardiovascular: Vessels: normal carotid upstroke; no carotid bruit Neurologic: Oriented to:: Person, Place and Time Memory: Short Term Intact and Remote Intact Attention: Span Intact and Concentration Intact Language: Naming Objects and Repeating Phrases Speech Fluency: negative Dysarthria Speech Aphasia: negative Aphasia Fund of Knowledge: Current Events, Past History and Vocabulary Cranial Nerves: Normal II (Visual villalobos full to confrontation, visual acuity normal), III, IV, (Pupils equal round reactive to light and accommodation, eye movements normal), V (Facial sensation intact), VII (There is no facial droop or weakness), VIII (Hearing intact), IX, X (Palate elevates to midline), XI (Shoulder shrug intact) and XII (Tongue protrudes to midline) Motor Strength: Normal Lower Extremities and Normal Upper Extremities; negative Pronator Drift Motor Tone: Normal Lower Extremities and Normal Upper Extremities Muscle Bulk/Involuntary Movements: No Involuntary Movements; negative Muscle Atrophy Sensation: negative Light Touch Intact, Pain/Temperature Intact, Vibration Intact or Proprioception Intact Coordination: Normal; negative Limited Balance, Dysdiadochokinesia, Finger- Nose Abnormal or Heel-El Abnormal Deep Tendon Reflexes: Rt Triceps: 2+, Lt Triceps: 2+, Rt Biceps: 2+, Lt Biceps: 2+, Rt Brachioradialis: 1+, Lt Brachioradialis: 1+, Rt Patellar: 1+, Lt Patellar: 1+, Rt Ankle: 1+ and Lt Ankle: 1+ Special Tests: negative Babinski Present Gait: Normal Station and Gait Results & Data ([facility]) Vital Signs (Past 12 Hours) Vital Signs Temp Pulse Pulse Resp BP Pulse Ox 07/20/21 07:47 36.8 C 67 16 152/74 H 95 07/20/21 03:15 36.9 C 68 16 112/60 94 07/19/21 23:08 36.8 C 68 16 135/75 90 07/19/21 22:20 63 Laboratory Results WBC 5.68, hemoglobin 10.4, hematocrit 31.3, platelet count 234, sodium 138, potassium 3.5, BUN 16, creatinine 0.74, glucose 81, calcium 9.2, magnesium 1.7, AST 14, ALT 17, troponin less than 0.015, triglycerides 126, cholesterol 189, LDL 109, VLDL 25, HDL 55 Diagnostic Findings Electrocardiogram reveals atrial fibrillation, 83 bpm. Coding Level of Care Code 85435 Initial Inpt Care Lvl 3 Diagnoses TIA (transient ischemic attack) G45.9
[2021-07-20] MEDS ORDERED: Nursing to Pharmacy Communication SCH (09:30)
[2021-07-20] MEDS ORDERED: LORazepam 0.5 MG TAB PO PRN (09:46)
--- NOTE | 2021-07-20 10:59 | Magnetic Resonance Report ---
Brain MRI WITHOUT CONTRAST HISTORY: Aphasia. evaluate for CVA TECHNIQUE: Multiplanar multisequence MRI of the brain was performed without the use of contrast. COMPARISON STUDY: Head CT 07/19/2021. FINDINGS: No areas of restricted diffusion to suggest acute infarction. The midline structures are in tact. Redemonstration of a partially calcified slightly heterogeneous 2.7 cm extra-axial lesion withi n the right posterior fossa. This results in mild mass effect along the right cerebellar hemisphere. This likely represents a meningioma. The ventricles and sulci demonstrate mild age-related involution al changes. Patchy T2 hyperintense foci seen within the white matter of the supratentorial brain are nonspecific but favor moderate microvascular ischemic change. There is no midline shift. There is a 5 mm T2 hyperintense, T1 hypointense focus within the right side of the medulla on axial image 5. This demonstrates susceptibility artifact and could represent a cavernoma or small focus of calcification . The paranasal sinuses and mastoid air cells are clear. The major vascular flow-voids at the skull b ase are well-maintained. There is an old punctate lacunar infarct within the left cerebellar hemisphe re. IMPRESSION: 1. No acute infarct. 2. A 2.7 cm extra-axial lesion within the right posterior fossa consistent with a calcified meningiom a. 3. Mild atrophy and moderate microvascular ischemic changes. 4. A 5 mm T2 hyperintense, T1 hypointense focus within the right side of the medulla. This may repres ent a small cavernoma or small focus of calcification. ACT 112: Negative or not required by law. Electronically signed by: Gustavo Pickard M.D. 07/20/2021 10:58 AM
--- NOTE | 2021-07-20 11:04 | Magnetic Resonance Report ---
Brain MRA HISTORY: Aphasia. TIA TECHNIQUE: 3-D [id number] MRA of the brain was performed without contrast. COMPARISON STUDY: None. FINDINGS: Mild narrowing of approximately 25% within the supraclinoid segment of the left ICA and mod erate narrowing of up to 50% within the supraclinoid right ICA likely due to the atherosclerotic plaq ue. The basilar artery, distal right vertebral artery, bilateral ACAs, bilateral MCAs, and bilateral media sales executive show no significant stenosis, occlusion, or aneurysm. Of note, the distal branches of the cerebr al arteries are suboptimally assessed due to the motion artifact. Right posterior fossa meningiomas a gain noted. The left vertebral artery appears to be severely hypoplastic and does not demonstrate int radural component. The left posterior inferior cerebellar artery originates from the tortuous dominan t right vertebral artery. Therefore, this favors a normal variant. IMPRESSION: 1. Moderate right and mild left supraclinoid ICA narrowing likely due to the atherosclerotic plaque. 2. No significant stenosis, occlusion, or aneurysm within the bilateral ACAs, MCAs, media sales executive. 3. Hypoplastic/absent distal left vertebral artery with a dominant right vertebral artery. Therefore, this is likely developmental. ACT 112: Negative or not required by law. Electronically signed by: Gustavo Pickard M.D. 07/20/2021 11:03 AM
--- NOTE | 2021-07-20 11:25 | Ultrasound Report ---
BILATERAL CAROTID DOPPLER STUDY HISTORY: Aphasia. TIA COMPARISON: None. TECHNIQUE: Real-time, grayscale, and color Doppler sonography of the carotid arteries was performed. Imaging reviewed in the transverse and longitudinal planes. All measurements were calculated based on NASCET criteria. FINDINGS: Antegrade flow is seen in the bilateral vertebral arteries. The brachial pressures were not obtained. Mild/moderate calcified plaque within the bilateral carotid bifurcations. The peak systolic velocity within the right ICA is 85 cm/s. The right systolic ratio is 1.2. The peak systolic velocity within the left ICA is 108 cm/s. The left systolic ratio is 0.9. Mild stenosis within the left external carotid artery with peak systolic velocity 137 cm/s. IMPRESSION: No hemodynamically significant stenosis seen within the bilateral common and internal carotid arterie s. ACT 112: Negative or not required by law. Electronically signed by: Gustavo Pickard M.D. 07/20/2021 11:24 AM
--- NOTE | 2021-07-20 20:53 | Hospitalist Progress Note ---
Date of Service July 20, 2021 Assessment & Plan (1) TIA (transient ischemic attack): Plan: Symptoms resolved on arrival no tPA with rapid resolution of symptoms- NIHSS- 0 - CT negative - MRI 1. No acute infarct. 2. A 2.7 cm extra-axial lesion within the right posterior fossa consistent with a calcified meningioma. 3. Mild atrophy and moderate microvascular ischemic changes. 4. A 5 mm T2 hyperintense, T1 hypointense focus within the right side of the medulla. This may represent a small cavernoma or small focus of calcification. - No ASA as per HPI- -Appreciate inpout from Neuro: Now that the patient has had a TIA in the context of her history of atrial fibrillation, the risk of recurrent TIA or stroke is significantly elevated and may exceed her GI bleeding risk. Would consider anticoagulating this patient with close monitoring for GI bleeding. May need an up-to-date GI evaluation. Would also ask cardiology for an opinion regarding this issue. -consulted GI and Cardio. - Not on statin - PT/OT consult - passed swallow screen at bedside no residual facial droop (2) Paroxysmal A-fib: Plan: Paroxysmal - mag 1.7 on admission- replaced with 2GM - rate control - continue amiodarone- dose verified every other day - continue metoprolol succinate 25mg daily - if rate control needed consider increase to 50mg daily (3) Left shoulder pain: Plan: Chronic rotator cuff injuries (4) S/P IVC filter: Plan: remains in place since 2006 (5) Anxiety: Plan: continue buspar and ativan - will need for PRN (6) Hyperparathyroidism: Plan: Continue with home medications (7) Hypothyroid: Plan: Continue with synthroid (8) Hypertension: Plan: Well controlled continue- amlodopine, metoprolol, and lisinopril (9) Coronary artery disease: Plan: As above - not on statin or ASA (10) Multiple myeloma: Plan: Continue daily prednisone (11) Hx of deep venous thrombosis: Plan: As above - with IVC filter (12) CHF (congestive heart failure): Plan: ECHO pending for updated EF - no edema and pulmonary clear on room air Admission and Anticipated Discharge Date Admission Date: July 19, 2021 Subjective Patient reports no new symptoms. Review of Systems Review of Systems: REVIEW OF SYSTEMS: Constitutional: No fever, sweats or chills Eyes: No diplopia, no worsening or blurred vision ENT: (+) difficulty hearing, no trouble swallowing Respiratory: No cough, sputum, dyspnea at rest or on exertion Cardiovascular:(+) afib, No chest pain, tightness or palpitations Abdomen: No pain, nausea, vomiting, diarrhea or constipation Musculoskeletal: (+) bilateral shoulder pain and limited ROM, NO calf pain, swelling Neurologic: No new weakness, numbness/tingling, or balance problems Psychiatric: (+) anxiety or depression Skin: No rash or itch Physical Exam Physical Exam: General: awake, alert, no apparent distress Head: Normocephalic, atraumatic ENT: PERRLA, EOMI, no pharyngeal exudate, mucous membranes moist Neuro: AAO x 3, speech clear and appropriate, strength intact bilaterally 5/5, sensation intact and equal all extremities and dermatomes, no pronator drift, no word finding difficulty, no overshoot with finger to nose, no coordination difficulty, Chest: equal rise and fall of the chest, no accessory muscle use, no heaves or thrills, Clear to auscultation, on room air, Cardiac: irregular rate and rhythm, telemetry reviewed- afib, skin warm dry, cap refill <3 seconds, peripheral pulses +2 no JVD, no murmur, trace edema GI: NABS x 4 quadrants, soft, nontender to palpation, no rebound, guarding or tenderness : Spontaneously voiding (pure wick), no pain, no CVA tenderness, Extremities: Normal inspection, no peripheral edema or erythema, calfs nontender to palpation Psych: Normal mood and affect Skin: no rash or erythema Results & Data Results & Data ([facility]) Vital Signs (Past 12 Hours) Vital Signs Temp Pulse Resp BP Pulse Ox 07/20/21 15:51 36.9 C 69 16 147/74 H 95 PG Care Time/CCT Total # of Minutes Spent Total Time Spent with Patient: Total time spent is greater than 50% in coordination of care (as documented) at patient's floor/unit and/or counseling patient: Coding Level of Care Code 75282 Subseq Obs Care Lvl 3 Diagnoses TIA (transient ischemic attack) G45.9 Paroxysmal A-fib I48.0 Left shoulder pain M25.512 S/P IVC filter Z95.828 Anxiety F41.9 Hyperparathyroidism E21.3 Hypothyroid E03.9 Hypertension I10 Coronary artery disease I25.10 Multiple myeloma C90.01 Multiple myeloma remission status: in remission Hx of deep venous thrombosis Z86.718 CHF (congestive heart failure) I50.9 (1) Multiple myeloma Multiple myeloma remission status: in remission Qualified Code(s): C90.01 - Multiple myeloma in remission
--- NOTE | 2021-07-20 21:55 | XCELERA ---
[id number]
--- NOTE | 2021-07-20 22:40 | Electrocardiogram Report ---
Test Reason : Blood Pressure : / mmHG Vent. Rate : 083 BPM Atrial Rate : 075 BPM P-R Int : 000 ms QRS Dur : 082 ms QT Int : 372 ms P-R-T Axes : 000 -01 047 degrees QTc Int : 437 ms Poor data quality, interpretation may be adversely affected Atrial fibrillation Nonspecific ST and T wave abnormality Abnormal ECG When compared with ECG of 20-OCT-2019 04:59, Atrial fibrillation has replaced Sinus rhythm Confirmed by Bang Jones ([id number] on 07/20/2021 10:40:22 PM Referred By: Confirmed By:Bang Jones
[2021-07-21] MEDS: LEVOTHYROXINE SODIUM 75 MCG TABLET PO SCH (06:06)
[2021-07-21 07:08] LABS: Basophils # (auto) 0.02 K/uL (0-0.2); Basophils % (auto) 0.4 %; Eosinophils # (auto) 0.14 K/uL (0-0.5); Eosinophils % (auto) 2.8 %; Hematocrit (blood only) 32.1 % (37-47); Hemoglobin 10.6 g/dL (12.0-16.0); Immature Granulocytes # (auto) 0.02 K/uL (0.00-0.02); Immature Granulocytes % (auto) 0.4 %; Lymphocytes # (auto) 1.59 K/uL (1.2-3.4); Lymphocytes % (auto) 31.5 %; Mean Corpuscular Hemoglobin 31.4 pg (25-34); Mean Platelet Volume 10.3 fL (7.4-10.4); Monocytes # (auto) 0.62 K/uL (0.11-0.59); Monocytes % (auto) 12.3 %; Neutrophils # (auto) 2.66 K/uL (1.4-6.5); Neutrophils % (auto) 52.6 %; Platelet Count 229 K/uL (130-400); RDW Standard Deviation 48.6 fL (36.4-46.3); Red Blood Count 3.38 M/uL (4.2-5.4); White Blood Count 5.05 K/uL (4.8-10.8)
[2021-07-21 07:23] LABS: Prothrombin Time 10.4 Seconds (9.0-12.0)
[2021-07-21 07:41] LABS: BUN Creatinine Ratio 22.1 (10-20); Calcium 8.4 mg/dl (8.5-10.1); Creatinine Clr Calc Pharmacy 40.7 ml/min; Est GFR (African American) 69.9 ml/min; Est GFR (Non-African American) 60.3 ml/min; Potassium 3.5 mmol/L (3.5-5.1)
--- NOTE | 2021-07-21 08:10 | Cardiology Consultation ---
Date of Consultation July 21, 2021 Assessment & Plan (1) Paroxysmal A-fib: (2) TIA (transient ischemic attack): (3) Coronary artery disease: (4) S/P CABG (coronary artery bypass graft): (5) Chronic heart failure with preserved ejection fraction: ASSESSMENT/PLAN: 1. Paroxysmal atrial fibrillation: Has a history of paroxysmal atrial fibrillation however, atrial fibrillation could possibly be persistent at this point. If persistent, given the fact that she is completely asymptomatic, would consider discontinuation of amiodarone and further rate control with beta- liberty. Continue to monitor for now. In regards to anticoagulation, her chads Vasc score is quite elevated (8 points) with estimated stroke risk of approximately 11% per year. Has bled score is also elevated. We discussed pros and cons of anticoagulation and risk of bleed with abstaining from anticoagulation and risk of stroke. She was clear in stating that she is not afraid to but also that her quality of life is important. For this reason, would recommend anticoagulation therapy, understanding that there is increased risk of bleeding and that she has had significant bleeding in the past. However, Dr. Wiley, her primary tube cutter knows her history in much more detail as he has been involved in her care for many years. She would like to discuss this with Dr. Wiley if he is available tomorrow before she decides definitively. 2. TIA: This has been addressed by Neurology. 3. CAD s/p CABG: No angina. Has not been on aspirin due to history of GI bleed. Continue beta-liberty. She has not been on a statin however given advanced age, she may not derive significant benefit. 4. Chronic HFpEF: She appears euvolemic. She takes diuretic 3 days per week. Low-sodium diet. Daily weights. 5. Disposition: Dr. Wiley, her primary tube cutter, can resume her care tomorrow. Dr. Cooley of the primary hospitalist service was contacted and patient care/plan was communicated with him. Today's visit was 45 minutes in duration, including counseling patient, coordinating care, discussing with primary hospitalist service, reviewing data, and chart completion. Thank you for allowing me to participate in the care of your patient. Please call for any other questions or concerns. Sincerely, Bj Jones M.D. History of Present Illness Reason for Consultation: History of Afib; "risk for anticoagulation" Requesting Physician: Nilesh Horne Attending Physician: Corey Cooley MD History of Present Illness Ms. Maciel is an 86-year-old female with history significant for paroxysmal atrial fibrillation, CAD s/p CABG x 3 (2006), DVT (IVC filter 2006) with recurrent thrombus in 2018, hypertension, rectal cancer s/p resection/chemo/radiation, multiple myeloma, carotid artery plaque, and cardiomyopathy with systolic CHF. Cardiology consulted due to presenting with TIA and not being on anticoagulation due to prior GI bleeding. Primary tube cutter is Dr. Wiley. She was diagnosed with cardiomyopathy in 2018 after presenting with a fall and a fractured hip. She has had the following studies/procedures: 1. CABG x3 2006 2. Echo 05/14/2018: Severely reduced LV systolic function. EF 20-25%. Akinesis of the apical septum, inferior wall, and apex. Lateral wall mildly hypokinetic. Mild MR. 3. Echo 07/20/2021: Normal LV size, wall motion, systolic function. EF 60-65%. Mild LVH. Mild biatrial dilation. Mild MR. Moderate TR. RVSP 30. She was admitted on 07/19/2021 and has been diagnosed with TIA. She has been seen by Neurology and also Gastroenterology. She is in atrial fibrillation and denies any symptoms that have correlated with atrial fibrillation hour in the past. She denies palpitations, chest pain, syncope, near-syncope, edema, hematochezia, or hematuria. She states that her stool is typically dark while on iron supplementation. She has mild dyspnea with exertion which she describes as chronic and stable. She denies shortness of breath at rest. She is sedentary. At [facility], she typically uses a wheelchair. She recalls having GI bleed in the past. She reports undergoing 8 units of PRBC on 1 occasion for significant GI bleeding. She reportedly has had AVM, ulcers, and rectal mass in the past. She has been on amiodarone given her history of paroxysmal atrial fibrillation but she was noted to be in atrial fibrillation on presentation and has remained in atrial fibrillation on telemetry. Review of systems: As above. Review of systems otherwise negative/unremarkable. Family history: No known premature CAD. Social history: She denies tobacco or alcohol abuse. She is a . Three sons. To grandchildren. Two great grandchildren. She resides at [facility]. She is unaccompanied. Allergies Allergy/AdvReac Type Severity Reaction Status Date / Time aspartame Allergy Mild HEADACHES, Verified 07/19/21 14:02 N/V shellfish derived Allergy Mild HEADACHE Verified 07/19/21 14:02 AND N/V Cipro Allergy Unknown ELEVATED Verified 09/20/17 17:44 BLOOD PRESSURE ciprofloxacin Allergy Unknown ELEVATED Verified 07/19/21 14:02 BLOOD PRESSURE Iodinated Contrast Media Allergy Unknown R/T Verified 07/19/21 14:02 SHELLFISH ALLERGY nitrofurantoin Allergy Unknown NAUSEA,ABDOMINAL Verified 07/19/21 14:02 PAIN Quinolones Allergy Unknown CIPRO - Verified 07/19/21 14:02 ELEVATED BLOOD PRESSURE Sulfa (Sulfonamide Allergy Unknown UNKNOWN - Verified 07/19/21 14:02 Antibiotics) PT STATES DOES NOT REMEMBER Home Medications Medication Instructions Recorded Confirmed Type acetaminophen 500 mg tablet 500 mg PO Q4 PRN #0 tab 09/13/17 07/19/21 History cyanocobalamin (vitamin B-12) 1,000 mcg PO DAILY #0 09/13/17 07/19/21 History 1,000 mcg tablet (Vitamin B-12) glucosamine sulfate 500 mg tablet 1,000 mg PO DAILY #0 09/13/17 07/19/21 History (Glucosamine) levothyroxine 75 mcg tablet 75 mcg PO DAILY #0 09/13/17 07/19/21 History ondansetron 8 mg disintegrating 8 mg PO TID PRN #0 tab 09/13/17 07/19/21 History tablet polyethylene glycol 3350 17 gram 17 g PO DAILY PRN #0 09/13/17 07/19/21 History oral powder packet (Miralax) prednisone 5 mg tablet 5 mg PO DAILY #0 tab 09/13/17 07/19/21 History potassium chloride 20 mEq 20 meq PO DAILY #0 tab 05/14/18 07/19/21 History tablet,extended release ferrous sulfate 325 mg (65 mg 325 mg PO DAILY 03/08/19 07/19/21 History iron) tablet metoprolol succinate 25 mg 25 mg PO DAILY 07/27/19 07/19/21 History tablet,extended release 24 hr lisinopril 2.5 mg tablet 2.5 mg PO DAILY #30 tab 08/21/19 07/19/21 Rx lorazepam 0.5 mg tablet 0.5 mg PO Q8H PRN 08/23/19 07/19/21 History amlodipine 5 mg tablet 5 mg PO DAILY #90 tab 09/01/19 07/19/21 Rx furosemide 20 mg tablet 20 mg PO .COMPLEX #30 tab 09/01/19 07/19/21 Rx buspirone 5 mg tablet 5 mg PO TID #90 tab 10/02/19 07/19/21 Rx ascorbic acid (vitamin C) 250 mg 250 mg PO DAILY 10/10/19 07/19/21 History tablet dextromethorphan-guaifenesin 30 1 tab PO Q12H PRN 10/20/19 07/19/21 History mg-600 mg tablet extended [id number] hr (Mucinex DM) hydrocortisone 2.5 % topical cream 1 applic NC BID PRN 10/20/19 07/19/21 History with perineal applicator (Procto-Med HC) nitroglycerin 0.4 mg sublingual 0.4 mg SUBLINGUAL DIRECTED PRN 10/20/19 07/19/21 History tablet amiodarone 200 mg tablet 100 mg PO .COMPLEX tab 11/21/19 07/19/21 History pantoprazole 40 mg tablet,delayed 40 mg PO BID #0 tab 04/18/20 07/19/21 History release (Protonix) calcium carbonate 600 mg calcium 600 mg PO DAILY #90 tab 11/28/20 07/19/21 Rx (1,500 mg) tablet (Calcium) calcitriol 0.5 mcg capsule 1.5 mcg PO DAILY #90 cap 02/17/21 07/19/21 Rx cholecalciferol (vitamin D3) 50 50 mcg PO DAILY #30 cap 03/24/21 07/19/21 Rx mcg (2,000 unit) capsule cinacalcet 30 mg tablet (Sensipar) 30 mg PO BID #60 tab 05/19/21 07/19/21 Rx cephalexin 500 mg capsule 500 mg PO BID #60 cap 06/04/21 07/19/21 Rx sucralfate 1 gram tablet 1 g PO QID PRN #120 tab 07/17/21 07/19/21 Rx Patient History Medical History (Updated 07/21/21 @ 12:50 by Bang Jones MD) Acute GI bleeding (2017) Acute hip pain Adenocarcinoma of rectum (2017) "Diarrhea and rectal bleeding Status post colonoscopy and biopsy 02/09/2017 showing high-grade dysplasia suspicious for adenocarcinoma Status post transrectal resection 02/15/2017 Stage pT2 [id number] Plan for combined radiation and chemotherapy, chemotherapy comprised of Xeloda Status post completion of radiation therapy 05/17/2017. She received 5040 cGy. Dosage of Xeloda was adjusted due to side effect of diarrhea" Anxiety Arthritis Atrial fibrillation with RVR Blood dyscrasia Cancer CHF (congestive heart failure) Chronic steroid use Chronic systolic heart failure Constipation Coronary artery disease DVT (deep venous thrombosis) Electrolyte abnormality Fatigue Gastric ulcer (2014) Gastrointestinal disorder GI bleed [place] filter in place High cholesterol History of GI bleed History of parathyroid disease Hx of deep venous thrombosis Hypertension Multiple myeloma Osteoporosis Paroxysmal A-fib Pneumonia (09/2019) Thrombophlebitis Thyroid disease Urinary tract infection Surgical History History of appendectomy History of bilateral salpingo-oophorectomy History of left hip hemiarthroplasty History of rectal surgery S/P CABG (coronary artery bypass graft) (2006) S/P hysterectomy S/P IVC filter Family History Other Coronary heart disease Heart failure Denies family history of Ovarian cancer Prostate cancer Myocardial infarction Breast cancer Colorectal cancer Social History Smoking Status: Never smoker Second Hand Exposure: No; Do You Dip or Chew Tobacco: No; Tobacco Cessation Education Requested by Patient: No Hx Alcohol Use: No Hx Substance Use: No Preferred Language: Kazakh Communication Ability: Effective Visual Impairment: Partially Limited Hearing Ability: Hard of Hearing Shale Processing Technician Required: No Beliefs That Will Affect Care: None marital status: Current Living Situation: Personal Care Facility current occupational status: retired 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 [employer] How many Children do You have: 3 Other Information That Helps Us Care for You: No Feels Safe at Home: Yes Safety Concerns: Feels Safe At This Time Childhood Exposure to Second-Hand Smoke: No during the past year weight has: remained stable Dental Care, Regularly: Yes Physical Activity Frequency: Does not Exercise Seatbelt Use: always Sunscreen Use: Yes Assistive Devices: Denture - Upper Physical Exam Physical Exam: Gen.: No acute distress. Alert. HEENT: Anicteric sclera. Neck: No JVD. No bruits. Normal carotid upstrokes bilaterally. Cardiac: PMI was nonpalpable. No ventricular heave. Irregularly irregular. Normal heart rate. Normal S1-S2. No murmurs, rubs, or gallops. Pulmonary: Clear to auscultation bilaterally without wheezes, rales, or rhonchi. Abdomen: Soft, nontender, nondistended, with normoactive bowel sounds. No bruits noted. Extremities: 2+ radial pulses bilaterally. 2+ posterior tibialis pulses bilaterally. No pitting edema or cyanosis. Psychiatric: Affect appears appropriate. Results & Data ([facility]) Vital Signs (Past 12 Hours) Vital Signs Temp Pulse Pulse Resp BP Pulse Ox 07/21/21 07:33 37.0 C 61 16 135/66 07/21/21 04:00 36.5 C 87 18 129/76 91 07/20/21 23:04 36.5 C 61 18 128/74 94 07/20/21 22:19 63 Laboratory Results Laboratory Results - last 24 hr 07/19/21 07/20/21 07/20/21 12:32 05:47 16:51 WBC RBC Hgb Hct MCV MCH MCHC RDW Std Deviation RDW Coeff of Leland Plt Count MPV Immature Gran % (Auto) Neut % (Auto) Lymph % (Auto) [place] % (Auto) Eos % (Auto) Baso % (Auto) Neut # (Auto) Lymph # (Auto) [place] # (Auto) Eos # (Auto) Baso # (Auto) Immature Gran # (Auto) PT INR Sodium Potassium Chloride Carbon Dioxide Anion Gap BUN Creatinine Est Cr Clr Drug Dosing Est GFR ( Amer) Est GFR (Non-Af Amer) BUN/Creatinine Ratio Glucose POC Glucose 109 H Estimat Average Glucose 111 Hemoglobin A1c 5.5 Calcium Antibody ID Comment 07/20/21 07/21/21 07/21/21 20:27 06:39 06:39 WBC 5.05 RBC 3.38 L Hgb 10.6 L Hct 32.1 L MCV 95.0 MCH 31.4 MCHC 33.0 RDW Std Deviation 48.6 H RDW Coeff of [place]eland 14.0 Plt Count 229 MPV 10.3 Immature Gran % (Auto) 0.4 Neut % (Auto) 52.6 Lymph % (Auto) 31.5 [place] % (Auto) 12.3 Eos % (Auto) 2.8 Baso % (Auto) 0.4 Neut # (Auto) 2.66 Lymph # (Auto) 1.59 [place] # (Auto) 0.62 H Eos # (Auto) 0.14 Baso # (Auto) 0.02 Immature Gran # (Auto) 0.02 PT 10.4 INR 1.0 Sodium Potassium Chloride Carbon Dioxide Anion Gap BUN Creatinine Est Cr Clr Drug Dosing Est GFR ( Amer) Est GFR (Non-Af Amer) BUN/Creatinine Ratio Glucose POC Glucose 115 H Estimat Average Glucose Hemoglobin A1c Calcium Antibody ID Comment 07/21/21 07/21/21 07/21/21 06:39 07:42 11:24 WBC RBC Hgb Hct MCV MCH MCHC RDW Std Deviation RDW Coeff of [place] Plt Count MPV Immature Gran % (Auto) Neut % (Auto) Lymph % (Auto) [place] % (Auto) Eos % (Auto) Baso % (Auto) Neut # (Auto) Lymph # (Auto) [place] # (Auto) Eos # (Auto) Baso # (Auto) Immature Gran # (Auto) PT INR Sodium 137 Potassium 3.5 Chloride 106 Carbon Dioxide 26 Anion Gap 5.0 BUN 19 H Creatinine 0.86 Est Cr Clr Drug Dosing 40.7 Est GFR ( Amer) 69.9 Est GFR (Non-Af Amer) 60.3 BUN/Creatinine Ratio 22.1 H Glucose 73 POC Glucose 79 154 H Estimat Average Glucose Hemoglobin A1c Calcium 8.4 L Antibody ID Comment Diagnostic Findings Telemetry personally reviewed: Atrial fibrillation with adequate rate control. Echo report reviewed as noted above in HPI. GI and Neurology consultations reviewed. ECG personally reviewed: ECG 07/19/2021: AFib 83 beats per minute. Nonspecific ST/T-wave abnormality. Carotid duplex 07/20/2021: No hemodynamically significant stenosis bilateral ICA. Brain MRI 07/20/2021: No acute infarct. Calcified meningioma per Radiology. Mild atrophy and moderate microvascular ischemic changes. Head MRA 07/20/2021: Moderate right and mild left supraclinoid ICA narrowing. Hypoplastic/absent distal left vertebral artery with dominant right vertebral artery. Chest x-ray 07/19/2021: No acute cardiopulmonary abnormality. Medications Administered Current Inpatient Medications Acetaminophen (Acetaminophen 500 Mg Tab) 500 mg PO Q4H PRN PRN Reason: Pain Stop: 08/18/21 17:54 Amiodarone HCl (Amiodarone 200 Mg Tab) 100 mg PO Q2D@0900 TERESA Stop: 08/19/21 08:59 Last Admin: 07/20/21 08:44 Dose: 100 mg Documented by: Amlodipine Besylate (Amlodipine Besylate 5 Mg Tab) 5 mg PO DAILY TERESA Stop: 08/19/21 08:59 Last Admin: 07/21/21 08:37 Dose: 5 mg Documented by: Ascorbic Acid (Ascorbic Acid 500 Mg Tab) 250 mg PO DAILY [facility]A Stop: 08/19/21 08:59 Last Admin: 07/21/21 08:37 Dose: 250 mg Documented by: Buspirone HCl (Buspirone 5 Mg Tab) 5 mg PO TID TERESA Stop: 08/18/21 20:59 Last Admin: 07/21/21 08:38 Dose: 5 mg Documented by: Calcitriol (Calcitriol 0.25 Mcg Capsule) 1.5 mcg PO DAILY TERESA Stop: 08/19/21 08:59 Last Admin: 07/21/21 08:38 Dose: 1.5 mcg Documented by: Calcium Carbonate (Calcium Carbonate 1250mg Tab) 1,250 mg PO DAILY TERESA Stop: 08/19/21 08:59 Last Admin: 07/21/21 08:41 Dose: 1,250 mg Documented by: Cinacalcet (Cinacalcet Hcl 30 Mg Tab) 30 mg PO BID TERESA Stop: 08/18/21 20:59 Last Admin: 07/21/21 08:39 Dose: 30 mg Documented by: Cyanocobalamin (Cyanocobalamin 500 Mcg Tablet (Vitamin B-12)) 1,000 mcg PO DAILY TERESA Stop: 08/19/21 08:59 Last Admin: 07/21/21 08:39 Dose: 1,000 mcg Documented by: Ferrous Sulfate (Ferrous Sulfate 325 Mg Tab) 325 mg PO DAILY [facility]A Stop: 08/19/21 08:59 Last Admin: 07/21/21 08:40 Dose: 325 mg Documented by: Heparin Sodium (Porcine) (Heparin Sod 5,000 Unit/0.5 Ml Vial) 5,000 units SQ Q12 TERESA Stop: 08/18/21 20:59 Last Admin: 07/21/21 08:40 Dose: 5,000 units Documented by: Levothyroxine Sodium (Levothyroxine Sodium 75 Mcg Tablet) 75 mcg PO DAILYBB [facility] Stop: 08/19/21 06:29 Last Admin: 07/21/21 06:06 Dose: 75 mcg Documented by: Lisinopril (Lisinopril 2.5 Mg Tab) 2.5 mg PO DAILY [facility] Stop: 08/19/21 08:59 Last Admin: 07/21/21 08:40 Dose: 2.5 mg Documented by: Lorazepam (Lorazepam 0.5 Mg Tab) 0.25 mg PO Q8H PRN PRN Reason: Anxiety Stop: 08/19/21 09:45 Metoprolol Succinate (Metoprolol Succ 25mg Ext Rel Tab) 25 mg PO DAILY [facility] Stop: 08/19/21 08:59 Last Admin: 07/21/21 08:40 Dose: 25 mg Documented by: Nitroglycerin (Nitroglycerin Sl 0.4 Mg/Tab Tab) 0.4 mg SL UD PRN PRN Reason: Chest Pain Stop: 08/18/21 17:06 Pantoprazole Sodium (Pantoprazole 40 Mg Tab) 40 mg PO BID [facility] Stop: 08/18/21 20:59 Last Admin: 07/21/21 08:41 Dose: 40 mg Documented by: Polyethylene Glycol (Polyethylene (Miralax) 17 Gm Pack) 17 gm PO DAILY PRN PRN Reason: Constipation Stop: 08/18/21 17:06 Prednisone (Prednisone 5 Mg Tab) 5 mg PO DAILY [facility] Stop: 08/19/21 08:59 Last Admin: 07/21/21 08:41 Dose: 5 mg Documented by: Sucralfate (Sucralfate 1 Gm Tab) 1 gm PO QID PRN PRN Reason: ULCERS Stop: 08/18/21 17:06 Vitamin D (Cholecalciferol 1,000 Units 25 Mcg Tab) 2,000 units PO DAILY [facility] Stop: 08/19/21 08:59 Last Admin: 07/21/21 08:39 Dose: 2,000 units Documented by: PG Care Time/CCT Total # of Minutes Spent Total Time Spent with Patient: Total time spent is greater than 50% in coordination of care (as documented) at patient's floor/unit and/or counseling patient: Coding Level of Care Code 47494 Office/Outpt Visit, New Diagnoses Paroxysmal A-fib I48.0 TIA (transient ischemic attack) G45.9 Coronary artery disease I25.10 S/P CABG (coronary artery bypass graft) Z95.1 Chronic heart failure with preserved ejection fraction I50.32
[2021-07-21 08:14] LABS: Estimated Average Glucose 111 mg/dl; Hemoglobin A1C 5.5 % (4.5-5.6)
[2021-07-21] MEDS: amLODIPine BESYLATE 5 MG TAB PO SCH (08:37)
[2021-07-21] MEDS: ASCORBIC ACID 500 MG TAB PO SCH (08:37)
[2021-07-21] MEDS: CALCITRIOL 0.25 MCG CAPSULE PO SCH (08:38)
[2021-07-21] MEDS: busPIRone 5 MG TAB PO SCH ×3 (08:38→20:29)
[2021-07-21] MEDS: CYANOCOBALAMIN 500 MCG TABLET (VITAMIN B-12) PO SCH (08:39)
[2021-07-21] MEDS: CINACALCET HCL 30 MG TAB PO SCH ×2 (08:39→20:29)
[2021-07-21] MEDS: CHOLECALCIFEROL 1,000 UNITS 25 MCG TAB PO SCH (08:39)
[2021-07-21] MEDS: HEPARIN SOD 5,000 UNIT/0.5 ML VIAL SQ SCH ×2 (08:40→20:29)
[2021-07-21] MEDS: METOPROLOL SUCC 25MG EXT REL TAB PO SCH (08:40)
[2021-07-21] MEDS: FERROUS SULFATE 325 MG TAB PO SCH (08:40)
[2021-07-21] MEDS: lisinopril 2.5 MG TAB PO SCH (08:40)
[2021-07-21] MEDS: PANTOprazole 40 MG TAB PO SCH ×2 (08:41→20:29)
[2021-07-21] MEDS: CALCIUM CARBONATE 1250MG TAB PO SCH (08:41)
[2021-07-21] MEDS: predniSONE 5 MG TAB PO SCH (08:41)
--- NOTE | 2021-07-21 10:07 | Gastrointestinal Consultation ---
Date of Consultation July 21, 2021 Assessment & Plan (1) Anemia: Patient is a 86 y.o. female with a history of GIB and PUD admitted with stroke sx, diagnosed with TIA without overt GIB. After long discussion with patient, she states she would like to avoid invasive GI work up unless overt GIB sx or if a significant drop in H&H would occur. -Continue Pantoprazole 40 mg BID. -Continue supportive care. Thank you for allowing us to participate in the care of this patient. If you have any questions or concerns, please do not hesitate to contact us. Supervising Physician Co-Signing Physician Notes I personally evaluated the patient and agree with the findings as documented by OSCAR Simpson Exam: abd: soft, nt, nd History of Present Illness Reason for Consultation: Hx GIB Requesting Physician: Dr. Horne Attending Physician: Corey Cooley MD History of Present Illness Patient is a 86 y.o. female with a history of PUD and rectal CA admitted with facial droop, weakness and slurred speech concerning for CVA. She was diagnosed with TIA. GI has been consulted in regard to her history of anemia and GIB. She states she has had dark stools chronically related to oral iron supplementation but stools are not tarry. Anemia has been stable and chronic since 10/11 from record review. She denies any nausea/vomiting, abdominal pain or hematemesis. No bright red rectal bleeding. Hemoglobin 10.4 yesterday and was noted to be 10.6. She has been placed on heparin but also with Pantoprazole 40 mg BID. Allergies Allergy/AdvReac Type Severity Reaction Status Date / Time aspartame Allergy Mild HEADACHES, Verified 07/19/21 14:02 N/V shellfish derived Allergy Mild HEADACHE Verified 07/19/21 14:02 AND N/V Cipro Allergy Unknown ELEVATED Verified 09/20/17 17:44 BLOOD PRESSURE ciprofloxacin Allergy Unknown ELEVATED Verified 07/19/21 14:02 BLOOD PRESSURE Iodinated Contrast Media Allergy Unknown R/T Verified 07/19/21 14:02 SHELLFISH ALLERGY nitrofurantoin Allergy Unknown NAUSEA,ABDOMINAL Verified 07/19/21 14:02 PAIN Quinolones Allergy Unknown CIPRO - Verified 07/19/21 14:02 ELEVATED BLOOD PRESSURE Sulfa (Sulfonamide Allergy Unknown UNKNOWN - Verified 07/19/21 14:02 Antibiotics) PT STATES DOES NOT REMEMBER Home Medications Medication Instructions Recorded Confirmed Type acetaminophen 500 mg tablet 500 mg PO Q4 PRN #0 tab 09/13/17 07/19/21 History cyanocobalamin (vitamin B-12) 1,000 mcg PO DAILY #0 09/13/17 07/19/21 History 1,000 mcg tablet (Vitamin B-12) glucosamine sulfate 500 mg tablet 1,000 mg PO DAILY #0 09/13/17 07/19/21 History (Glucosamine) levothyroxine 75 mcg tablet 75 mcg PO DAILY #0 09/13/17 07/19/21 History ondansetron 8 mg disintegrating 8 mg PO TID PRN #0 tab 09/13/17 07/19/21 History tablet polyethylene glycol 3350 17 gram 17 g PO DAILY PRN #0 09/13/17 07/19/21 History oral powder packet (Miralax) prednisone 5 mg tablet 5 mg PO DAILY #0 tab 09/13/17 07/19/21 History potassium chloride 20 mEq 20 meq PO DAILY #0 tab 05/14/18 07/19/21 History tablet,extended release ferrous sulfate 325 mg (65 mg 325 mg PO DAILY 03/08/19 07/19/21 History iron) tablet metoprolol succinate 25 mg 25 mg PO DAILY 07/27/19 07/19/21 History tablet,extended release 24 hr lisinopril 2.5 mg tablet 2.5 mg PO DAILY #30 tab 08/21/19 07/19/21 Rx lorazepam 0.5 mg tablet 0.5 mg PO Q8H PRN 08/23/19 07/19/21 History amlodipine 5 mg tablet 5 mg PO DAILY #90 tab 09/01/19 07/19/21 Rx furosemide 20 mg tablet 20 mg PO .COMPLEX #30 tab 09/01/19 07/19/21 Rx buspirone 5 mg tablet 5 mg PO TID #90 tab 10/02/19 07/19/21 Rx ascorbic acid (vitamin C) 250 mg 250 mg PO DAILY 10/10/19 07/19/21 History tablet dextromethorphan-guaifenesin 30 1 tab PO Q12H PRN 10/20/19 07/19/21 History mg-600 mg tablet extended fvidgge25 hr (Mucinex DM) hydrocortisone 2.5 % topical cream 1 applic [place] BID PRN 10/20/19 07/19/21 History with perineal applicator (Procto-Med HC) nitroglycerin 0.4 mg sublingual 0.4 mg SUBLINGUAL DIRECTED PRN 10/20/19 07/19/21 History tablet amiodarone 200 mg tablet 100 mg PO .COMPLEX tab 11/21/19 07/19/21 History pantoprazole 40 mg tablet,delayed 40 mg PO BID #0 tab 04/18/20 07/19/21 History release (Protonix) calcium carbonate 600 mg calcium 600 mg PO DAILY #90 tab 11/28/20 07/19/21 Rx (1,500 mg) tablet (Calcium) calcitriol 0.5 mcg capsule 1.5 mcg PO DAILY #90 cap 02/17/21 07/19/21 Rx cholecalciferol (vitamin D3) 50 50 mcg PO DAILY #30 cap 03/24/21 07/19/21 Rx mcg (2,000 unit) capsule cinacalcet 30 mg tablet (Sensipar) 30 mg PO BID #60 tab 05/19/21 07/19/21 Rx cephalexin 500 mg capsule 500 mg PO BID #60 cap 06/04/21 07/19/21 Rx sucralfate 1 gram tablet 1 g PO QID PRN #120 tab 07/17/21 07/19/21 Rx Patient History Medical History Acute GI bleeding (2017) Acute hip pain Recommend current treatment. Ice/heat, NSAIDs, PT as tolerated, WBAT with walker assistance. Okay from ortho standpoint for discharge when medically stable. Recommend following up in approximately 2-4 weeks for re-eval. Adenocarcinoma of rectum (2017) "Diarrhea and rectal bleeding Status post colonoscopy and biopsy 02/09/2017 showing high-grade dysplasia suspicious for adenocarcinoma Status post transrectal resection 02/15/2017 Stage pT2 cN0M0 Plan for combined radiation and chemotherapy, chemotherapy comprised of Xeloda Status post completion of radiation therapy 05/17/2017. She received 5040 cGy. Dosage of Xeloda was adjusted due to side effect of diarrhea" On 05/26/17 13:31 Bhavani Woods wrote "Diarrhea and rectal bleeding Status post colonoscopy and biopsy 02/09/2017 showing high-grade dysplasia suspicious for adenocarcinoma Status post transrectal resection 02/15/2017 Stage pT2 cN0M0 Plan for combined radiation and chemotherapy, chemotherapy comprised of Xeloda Status post completion of radiation therapy 05/17/2017. She received 5040 cGy." On 03/16/17 13:26 Bhavain Woods wrote "Diarrhea and rectal bleeding Status post colonoscopy and biopsy 02/09/2017 showing high-grade dysplasia suspicious for adenocarcinoma Status post transrectal resection 02/15/2017 Stage pT2 cN0M0 Plan for combined radiation and chemotherapy, chemotherapy comprised of Xeloda" Anxiety Arthritis Atrial fibrillation with RVR Blood dyscrasia Cancer CHF (congestive heart failure) Chronic steroid use Chronic systolic heart failure Constipation Coronary artery disease DVT (deep venous thrombosis) Electrolyte abnormality Fatigue Gastric ulcer (2014) Gastrointestinal disorder GI bleed [place] filter in place High cholesterol History of GI bleed History of parathyroid disease Hx of deep venous thrombosis Hypertension Multiple myeloma Osteoporosis Pneumonia (09/2019) Thrombophlebitis Thyroid disease Urinary tract infection Surgical History History of appendectomy History of bilateral salpingo-oophorectomy History of left hip hemiarthroplasty History of rectal surgery S/P CABG (coronary artery bypass graft) (2006) S/P hysterectomy S/P IVC filter Family History Other Coronary heart disease Heart failure Denies family history of Ovarian cancer Prostate cancer Myocardial infarction Breast cancer Colorectal cancer Social History Smoking Status: Never smoker Second Hand Exposure: No; Do You Dip or Chew Tobacco: No; Tobacco Cessation Education Requested by Patient: No Hx Alcohol Use: No Hx Substance Use: No Preferred Language: Urdu Communication Ability: Effective Visual Impairment: Partially Limited Hearing Ability: Hard of Hearing It Analyst Required: No Beliefs That Will Affect Care: None marital status: Current Living Situation: Personal Care Facility current occupational status: retired 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 How many Children do You have: 3 Other Information That Helps Us Care for You: No Feels Safe at Home: Yes Safety Concerns: Feels Safe At This Time Childhood Exposure to Second-Hand Smoke: No during the past year weight has: remained stable Dental Care, Regularly: Yes Physical Activity Frequency: Does not Exercise Seatbelt Use: always Sunscreen Use: Yes Assistive Devices: Denture - Upper Review of Systems Constitutional: + fatigue and + weakness Respiratory: no cough and no dyspnea Cardiovascular: no chest pain and no palpitations Gastrointestinal: as per Subjective / HPI Neurologic: + memory loss Physical Exam Constitutional: WD/WN, vitals as above Neck: normal visual inspection Respiratory: normal respiratory effort Auscultation: lungs clear to auscultation bilaterally Cardiovascular: Rate/Rhythm: + irregularly irregular Gastrointestinal (Abdomen): normal bowel sounds, soft, nontender, no hepatosplenomegaly Psychiatric: A+Ox3, euthymic affect Results & Data ([facility]) Vital Signs (Past 12 Hours) Vital Signs Temp Pulse Pulse Resp BP Pulse Ox 07/21/21 07:33 37.0 C 61 16 135/66 07/21/21 04:00 36.5 C 87 18 129/76 91 07/20/21 23:04 36.5 C 61 18 128/74 94 07/20/21 22:19 63 Laboratory Results Abnormal lab results 07/20/21 07/20/21 07/21/21 Range/Units 16:51 20:27 06:39 RBC 3.38 L (4.2-5.4) M/uL Hgb 10.6 L (12.0-16.0) g/dL Hct 32.1 L (37-47) % RDW Std Deviation 48.6 H (36.4-46.3) fL Upson # (Auto) 0.62 H (0.11-0.59) K/uL BUN (7-18) mg/dl BUN/Creatinine Ratio (10-20) POC Glucose 109 H 115 H (70-99) mg/dl Calcium (8.5-10.1) mg/dl 07/21/21 Range/Units 06:39 RBC (4.2-5.4) M/uL Hgb (12.0-16.0) g/dL Hct (37-47) % RDW Std Deviation (36.4-46.3) fL Upson # (Auto) (0.11-0.59) K/uL BUN 19 H (7-18) mg/dl BUN/Creatinine Ratio 22.1 H (10-20) POC Glucose (70-99) mg/dl Calcium 8.4 L (8.5-10.1) mg/dl PG Care Time/CCT Total # of Minutes Spent Total Time Spent with Patient: Total time spent is greater than 50% in coordination of care (as documented) at patient's floor/unit and/or counseling patient: Coding Level of Care Code 09549 Initial Inpt Care Lvl 3 Diagnoses Anemia D64.9
--- NOTE | 2021-07-21 11:43 | Neurology Progress Note ---
Date of Service July 21, 2021 Assessment & Plan (1) TIA (transient ischemic attack): (2) Paroxysmal A-fib: (3) Cerebellar meningioma: Plan: Patient had a TIA, July 19, localizing to the left middle cerebral artery territory, presenting with right-sided weakness, dysarthria, aphasia. The symptoms resolved quickly and have not recurred. MRI of the brain showed no acute stroke. There was considerable generalized atrophy and old small vessel ischemic change diffusely and 2.7 centimeter right cerebellar hemisphere meningioma without mass effect. I reviewed these films. Currently, the patient is stable neurologically with no new issues. Patient has a history of paroxysmal atrial fibrillation and currently has been in atrial fibrillation with a rate of the 60s. She has not been on anticoagulation due to history of GI bleeding a few years ago. Additional stroke risk factors for this patient include her history of multiple myeloma and hypertension. Blood pressure is currently 135/66. Echocardiogram was unremarkable MRA of the head reveals some distal right greater than left supraclinoid internal carotid artery narrowing secondary to plaque. Recommendations: 1. consider oral anticoagulation and discontinue heparin, considering her on going atrial fibrillation and history of paroxysmal atrial fibrillation. She is at bleeding risk, however , particularly on prednisone. 2. otherwise increase activity as able and consider physical and occupational therapy. 3. Given her advanced age and normal total cholesterol, she would not be a high dose statin candidate. 4. her hemoglobin A1c is normal at 5.5. No additional treatment for glucose is necessary. 5. she has a history of hypertension but her blood pressure is doing quite well. Maintain mean arterial pressure approximately 95-100. 6. given her diffuse small vessel ischemic disease she would be a candidate for an 81 milligram aspirin tablet daily but she does have GI bleeding risk and would hold on this for now. Overall, I spent a total of 60 minutes with this case including review of records, review of MRI films, direct evaluation the patient at bedside, and discussion of the case with the patient at bedside, RN at bedside, and Dr. Cooley including differential diagnosis and treatment options. Admission and Anticipated Discharge Date Admission Date: July 19, 2021 Subjective Patient feels fatigued but is in no pain. She has decreased hearing bilaterally Echocardiogram was largely unremarkable. MRI of the brain showed no acute stroke. It did show a 2.7 centimeter right cerebellar mass consistent with meningioma. There is enough atrophy in general that I do not believe there is any mass effect. I reviewed these films. She does not have headaches currently She has been in atrial fibrillation in the 60s and 70s. Chem profile was unremarkable and CBC showed mild anemia. Results & Data ([facility]) Vital Signs (Past 12 Hours) Vital Signs Temp Pulse Resp BP Pulse Ox 07/21/21 07:33 37.0 C 61 16 135/66 07/21/21 04:00 36.5 C 87 18 129/76 91 Exam (Neuro) Physical Exam: She is awake and alert. Speech is without aphasia or dysarthria. Mood is normal and affect appropriate. Thought processes are intact to conversation. She is hard of hearing. There is no facial droop. Tongue is midline. Extraocular eye muscles are intact without nystagmus. Without should arms there is no obvious drift but she is weak at the shoulders right greater than left due to rotator cuff injuries. Strength is symmetrical i n the arms and legs otherwise both proximally and distally, being fairly intact for age. There is no tremor or abnormal involuntary movements. There is no ataxia or decrease in facility of the hands. Reflexes are 1/4 the triceps and biceps tendons and absent in the brachioradialis quadriceps and Achilles tendons. Toes are downgoing with plantar stimulation bilaterally. PG Care Time/CCT Total # of Minutes Spent Total Time Spent with Patient: Total time spent is greater than 50% in coordination of care (as documented) at patient's floor/unit and/or counseling patient: Coding Level of Care Code 17300 Subseq Hosp Care Lvl 3 Diagnoses TIA (transient ischemic attack) G45.9 Paroxysmal A-fib I48.0 Cerebellar meningioma D32.0 Time Spent (min) 60
[2021-07-21] MEDS: ACETAMINOPHEN 500 MG TAB PO PRN ×2 (13:04→20:32)
--- NOTE | 2021-07-21 15:32 | Hospitalist Progress Note ---
Date of Service July 21, 2021 Assessment & Plan (1) TIA (transient ischemic attack): Plan: Symptoms resolved on arrival no tPA with rapid resolution of symptoms- NIHSS- 0. - MRI brain on showed no acute infarct. It did show a 2.7 cm extra-axial lesion within the right posterior fossa consistent with a calcified meningioma. - No ASA due to prior bleeding. - Appreciate input from Neuro. - Will likely start anticoagulation; however, the patient would prefer to sp eak with her lock fitter (Dr. Wiley) tomorrow before making up her mind. - Not a high-intensity statin candidate due to age and present lipid levels. - PT/OT consulted (2) Paroxysmal A-fib: Plan: Thought to be paroxysmal, but may now be persistent. - Stop amiodarone - Titrate beta-liberty for better rate control. - Consider anticoagulation after speaking with Dr. Wiley. (3) Hypertension: Plan: Well-controlled today at 115/70. - Continue amlodipine, metoprolol, and lisinopril (4) Coronary artery disease: Plan: As above. - Not on statin or ASA. (5) CHF (congestive heart failure): Plan: Echo on 07/20 showed EF 60 - 65%. Presently appears euvolemic. - Continue furosemide 20 mg 3 days per week (6) Left shoulder pain: Plan: Chronic rotator cuff injuries. - Pain control PRN (7) S/P IVC filter: Plan: Remains in place since 2006. (8) Anxiety: Plan: - Continue BuSpar and Ativan (9) Hyperparathyroidism: Plan: Continue with home medications. (10) Hypothyroid: Plan: TSH was 1.6 in 02/2021. No signs/symptoms of hypo-/hyperthyroidism. - Continue home Synthroid 75 mcg - Will repeat TSH in setting of afib (11) Multiple myeloma: Plan: - Continue daily prednisone. (12) Hx of deep venous thrombosis: Plan: As above - with IVC filter. - Heparin 5,000 units SQ Q12h Admission and Anticipated Discharge Date Admission Date: July 19, 2021 Subjective Feels tired today, but overall well. Reports no fevers/chills, chest pain, shortness of breath, abdominal pain, nausea, or vomiting. Physical Exam Constitutional: WD/WN, vitals as above Eyes: EOM intact bilaterally; no conjunctival abnormality ENMT: external ear and nose normal, oropharynx normal Neck: trachea midline, no thyromegaly normal visual inspection Respiratory: normal respiratory effort, lungs clear to auscultation no respiratory distress Cardiovascular: RRR, no murmur, no edema Gastrointestinal (Abdomen): Inspection/Auscultation: abdomen normal to inspection; abdomen not distended Musculoskeletal: no cyanosis or clubbing, extremities motor strength 5/5 Skin: no rashes, warm and dry Neurologic: moves all extremities and awake Psychiatric: Orientation: alert, oriented to person and cooperative Results & Data Results & Data ([facility]) Vital Signs (Past 12 Hours) Vital Signs Temp Pulse Resp BP Pulse Ox 07/21/21 12:00 37.3 C 85 18 130/68 96 07/21/21 07:33 37.0 C 61 16 135/66 07/21/21 04:00 36.5 C 87 18 129/76 91 PG Care Time/CCT Total # of Minutes Spent Total Time Spent with Patient: Total time spent is greater than 50% in coordination of care (as documented) at patient's floor/unit and/or counseling patient: Coding Level of Care Code 19305 Subseq Hosp Care Lvl 3 Diagnoses TIA (transient ischemic attack) G45.9 Paroxysmal A-fib I48.0 Left shoulder pain M25.512 S/P IVC filter Z95.828 Anxiety F41.9 Hyperparathyroidism E21.3 Hypothyroid E03.9 Hypertension I10 Coronary artery disease I25.10 Multiple myeloma C90.01 Multiple myeloma remission status: in remission Hx of deep venous thrombosis Z86.718 CHF (congestive heart failure) I50.9 (1) Multiple myeloma Multiple myeloma remission status: in remission Qualified Code(s): C90.01 - Multiple myeloma in remission
[2021-07-22] MEDS: LEVOTHYROXINE SODIUM 75 MCG TABLET PO SCH (05:38)
[2021-07-22 06:55] LABS: Basophils # (auto) 0.03 K/uL (0-0.2); Basophils % (auto) 0.6 %; Eosinophils # (auto) 0.18 K/uL (0-0.5); Eosinophils % (auto) 3.7 %; Hematocrit (blood only) 31.5 % (37-47); Hemoglobin 10.4 g/dL (12.0-16.0); Immature Granulocytes # (auto) 0.03 K/uL (0.00-0.02); Immature Granulocytes % (auto) 0.6 %; Lymphocytes # (auto) 1.39 K/uL (1.2-3.4); Lymphocytes % (auto) 28.2 %; Mean Corpuscular Hemoglobin 31.4 pg (25-34); Mean Corpuscular Volume 95.2 fL (80-100); Mean Platelet Volume 10.3 fL (7.4-10.4); Monocytes # (auto) 0.65 K/uL (0.11-0.59); Monocytes % (auto) 13.2 %; Neutrophils # (auto) 2.65 K/uL (1.4-6.5); Neutrophils % (auto) 53.7 %; Platelet Count 227 K/uL (130-400); RDW Standard Deviation 48.5 fL (36.4-46.3); Red Blood Count 3.31 M/uL (4.2-5.4); White Blood Count 4.93 K/uL (4.8-10.8)
[2021-07-22 07:03] LABS: Prothrombin Time 10.5 Seconds (9.0-12.0)
[2021-07-22 07:17] LABS: BUN Creatinine Ratio 26.7 (10-20); Calcium 8.6 mg/dl (8.5-10.1); Creatinine Clr Calc Pharmacy 44.3 ml/min; Est GFR (African American) 77.5 ml/min; Est GFR (Non-African American) 66.8 ml/min; Potassium 3.4 mmol/L (3.5-5.1)
[2021-07-22 07:28] LABS: Thyroid Stimulating Hormone 1.98 uIu/ml (0.300-4.500)
[2021-07-22] MEDS: lisinopril 2.5 MG TAB PO SCH (09:12)
[2021-07-22] MEDS: CALCITRIOL 0.25 MCG CAPSULE PO SCH (09:12)
[2021-07-22] MEDS: busPIRone 5 MG TAB PO SCH ×2 (09:12→12:56)
[2021-07-22] MEDS: METOPROLOL SUCC 25MG EXT REL TAB PO SCH (09:13)
[2021-07-22] MEDS: CYANOCOBALAMIN 500 MCG TABLET (VITAMIN B-12) PO SCH (09:13)
[2021-07-22] MEDS: ASCORBIC ACID 500 MG TAB PO SCH (09:13)
[2021-07-22] MEDS: CALCIUM CARBONATE 1250MG TAB PO SCH (09:13)
[2021-07-22] MEDS: predniSONE 5 MG TAB PO SCH (09:13)
[2021-07-22] MEDS: CHOLECALCIFEROL 1,000 UNITS 25 MCG TAB PO SCH (09:13)
[2021-07-22] MEDS: amLODIPine BESYLATE 5 MG TAB PO SCH (09:13)
[2021-07-22] MEDS: CINACALCET HCL 30 MG TAB PO SCH (09:13)
[2021-07-22] MEDS: PANTOprazole 40 MG TAB PO SCH (09:13)
[2021-07-22] MEDS: HEPARIN SOD 5,000 UNIT/0.5 ML VIAL SQ SCH (09:14)
[2021-07-22] MEDS: FERROUS SULFATE 325 MG TAB PO SCH (09:14)
[2021-07-22] MEDS: ACETAMINOPHEN 500 MG TAB PO PRN ×2 (09:20→12:59)
--- NOTE | 2021-07-22 10:15 | Cardiology Progress Note ---
Date of Service July 22, 2021 Assessment & Plan (1) Persistent atrial fibrillation: (2) TIA (transient ischemic attack): (3) Chronic heart failure with preserved ejection fraction: (4) Coronary artery disease: (5) S/P CABG (coronary artery bypass graft): Plan: 86-year-old woman with CAD (CABG 2006), multiple GI bleeds (2003, 2014, 2016), and multiple other medical problems who lives in assisted living facility, admitted 07/19/21 with TIA. She appears euvolemic from a heart failure standpoint and has no evidence of ongoing myocardial ischemia. Her major issue remains risk/benefit assessment for anticoagulation. As noted by Dr. Jones, she is both high risk for thromboembolic event and recurrent GI bleeding. Discussed risks/benefits with the patient today, given her recent TIA and lack of recent GI bleeding, would favor at least temporary anticoagulation. If she demonstrates evidence of GI bleeding, at that point it would be apparent that discontinuing anticoagulation would then be appropriate. Would recommend apixaban 2.5 mg twice daily, although her renal function is normal and her weight is greater than 60 kg, her age is greater than 78 and she is not much above the 60 kg cut off (she is 66 kg), so in this case with increased risk of b leeding it would seem reasonable to initiate her on reduced dose apixaban. She will need to monitor her stool, this is difficult because her stool is black due to iron supplement. Periodic heme testing at the assisted living facility would be ideal. Alternatively/additionally, periodic check of hemoglobin will be an additional means of monitoring for recurrent GI bleeding. She is not inclined to invasive procedures, however I did discuss and will discuss further the possibility of a Watchman atrial occlusion device, she would seem an appropriate candidate given high risk of both bleeding and thromboembolism. We will discuss this further at the time of follow-up in the office in 2 to 4 weeks. Patient agrees with proceeding with anticoagulation in the near term. Admission and Anticipated Discharge Date Admission Date: July 21, 2021 Subjective Uneventful night, patient feels well. No further neurologic symptoms. No cardiopulmonary symptoms, denies chest pain, dyspnea, or subjective palpitations. No presyncope or syncope. Rhythm remains atrial fibrillation with controlled ventricular response (60-70 bpm). Physical Exam Physical Exam: No distress. Skin: Forearm ecchymoses, no generalized lesions. HEENT: unremarkable. Neck: no JVD or carotid bruits. Lungs: clear. Cardiac: irregular rhythm, 2/6 basal systolic ejection murmur, no diastolic murmur, intact aortic closure sound. Abdomen: benign. Extremities: no edema, good capillary refill. Neurologic: normal affect and conversation, grossly nonfocal. Results & Data ([facility]) Vital Signs (Past 12 Hours) Vital Signs Temp Pulse Pulse Resp BP Pulse Ox 07/22/21 07:58 98.6 F 69 20 120/68 96 07/22/21 07:00 66 07/22/21 03:13 97.9 F 64 16 130/70 97 07/21/21 23:36 98.2 F 69 16 123/76 98 07/21/21 22:19 70 PG Care Time/CCT Total # of Minutes Spent Total Time Spent with Patient: Total time spent is greater than 50% in coordination of care (as documented) at patient's floor/unit and/or counseling patient: Coding Level of Care Code 77683 Subseq Hosp Care Lvl 3 Diagnoses Persistent atrial fibrillation I48.19 Chronic heart failure with preserved ejection fraction I50.32 S/P CABG (coronary artery bypass graft) Z95.1 TIA (transient ischemic attack) G45.9 Coronary artery disease I25.10
--- NOTE | 2021-07-22 14:54 | Discharge Summary ---
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 Patient was hospitalized in 2017 with acute GI bleed from multiple sources including an AVM ulcer and rectal mass Prior history of EF 20-25% although recent notes elude to her function returning to normal unable to find recent ECHO in our system. Patient was brought to the EMD today as she was sitting on the porch with her son and around 11:30 she had acute onset of slurred speech, right facial droop, and word finding difficulties per the son. He notified the nursing staff at [facility], where the patient is a resident, and she was brought here via EMS. On time of arrival in the EMD the patient symptoms were mostly gone; she was stroke alerted and telestroke consult was performed with Dr. Poe ([facility]) and Dr. Ibarra (stroke [facility]), she had a CT scan of the head performed without contrast(reported allergy); she was deemed NOT a tPA candidate. She did not receive an ASA secondary to GI bleed/ulcerations as above. Patient is in Afib at this time. Patient will be admitted to continue neurological evaluation and completion of MRI. Will obtain ECHO, neurology consult. NIHSS - 0 on my evaluation, son also reports that she is now in her normal function. Patient is mostly in a wheel chair but does walk with one person assist and her walker. Principal Diagnosis TIA Discharge Exam Constitutional WD/WN, vitals as above Eyes EOM intact bilaterally; no conjunctival abnormality ENMT external ear and nose normal, oropharynx normal Neck trachea midline, no thyromegaly normal visual inspection Respiratory normal respiratory effort, lungs clear to auscultation no respiratory distress Cardiovascular RRR, no murmur, no edema Gastrointestinal (Abdomen) Inspection/Auscultation: abdomen normal to inspection; abdomen not distended Musculoskeletal no cyanosis or clubbing, extremities motor strength 5/5 Skin no rashes, warm and dry Neurologic moves all extremities and awake Psychiatric Orientation: alert, oriented to person and cooperative Discharge Data Allergies Allergy/AdvReac Type Severity Reaction Status Date / Time aspartame Allergy Mild HEADACHES, Verified 07/19/21 14:02 N/V shellfish derived Allergy Mild HEADACHE Verified 07/19/21 14:02 AND N/V Cipro Allergy Unknown ELEVATED Verified 09/20/17 17:44 BLOOD PRESSURE ciprofloxacin Allergy Unknown ELEVATED Verified 07/19/21 14:02 BLOOD PRESSURE Iodinated Contrast Media Allergy Unknown R/T Verified 07/19/21 14:02 SHELLFISH ALLERGY nitrofurantoin Allergy Unknown NAUSEA,ABDOMINAL Verified 07/19/21 14:02 PAIN Quinolones Allergy Unknown CIPRO - Verified 07/19/21 14:02 ELEVATED BLOOD PRESSURE Sulfa (Sulfonamide Allergy Unknown UNKNOWN - Verified 07/19/21 14:02 Antibiotics) PT STATES DOES NOT REMEMBER Consultations 07/19/21 13:31 ED Decision to Admit Stat 07/19/21 17:07 Consult Neurology Routine 07/20/21 10:10 Consult Gastroenterology Routine 07/20/21 23:15 Consult Cardiology Routine Ordered Studies 07/19/21 12:16 CT head/brain wo con Stat 07/20/21 09:06 MR brain wo con Routine 07/20/21 09:51 MR angio head wo con Routine US carotid doppler BI Routine Hospital Course (1) TIA (transient ischemic attack): Symptoms resolved on arrival no tPA with rapid resolution of symptoms- NIHSS- 0. - MRI brain on showed no acute infarct. It did show a 2.7 cm extra-axial lesion within the right posterior fossa consistent with a calcified meningioma. - No ASA due to prior bleeding. - Appreciate input from Neuro. - Not a high-intensity statin candidate due to age and present lipid levels. - PT/OT consulted -> Stable; return to [facility]. - Started apixaban 2.5 mg PO BID per patient and Dr. Wiley's discussion. (2) Paroxysmal A-fib: Thought to be paroxysmal, but may now be persistent. - Stopped amiodarone - Titrate beta-liberty for better rate control, though no change in the hospital as her HR was well-controlled on her home dose of metoprolol. (3) Hypertension: Well-controlled today at 115/70. Ran slightly lower at times. Could probably stop one or two agents if BP remains low-normal. - Continue amlodipine, metoprolol, and lisinopril (4) Coronary artery disease: As above. - Not on statin or ASA. (5) CHF (congestive heart failure): Echo on 07/20 showed EF 60 - 65%. Presently appears euvolemic. - Continue furosemide 20 mg 3 days per week (6) Left shoulder pain: Chronic rotator cuff injuries. - Pain control PRN (7) S/P IVC filter: Remains in place since 2006. (8) Anxiety: - Continue BuSpar and Ativan (9) Hyperparathyroidism: Continue with home medications. (10) Hypothyroid: TSH was 1.6 in 02/2021 & 2.0 this admission. No signs/symptoms of hypo-/hyperthyroidism. - Continue home Synthroid 75 mcg (11) Multiple myeloma: - Continue daily prednisone. (12) Hx of deep venous thrombosis: As above - with IVC filter. - Heparin 5,000 units SQ Q12h Total Time Total Time Spent Total Time Spent (In Minutes): 35 Discharge Plan Discharge Items Patient Disposition: Personal Snf Reason For Visit: TIA Discharge Diagnosis: TIA ("mini-stroke") Activity: Resume your previous activity Non-emergency contact: Primary Care Provider and Structural Layout Worker Call non-emergency contact if: your symptoms worsen Follow-up/Referrals: Edgar Wiley MD [Physician] - (Please see Dr. Wiley in 2-4 weeks.) [employer], [facility] [Primary Care Provider] - Diet: Heart Healthy Addtl Attending Provider Instructions: Ms. Campos, You were admitted for a TIA or "mini-stroke" as they are sometimes called. This can occur when people have atrial fibrillation because tiny clot (or clots) form in the heart, then go to the brain. We try to prevent these events by using a blood thinner (or anticoagulation) to help prevent the small clots from forming. However, you have had several GI bleeds, so this is not entirely without risk. That said, the cardiology team understandably feels that we can give you a bit more blood, but we cannot fix a large stroke if it occurs. We did stop your amiodarone because you seem to mostly be in atrial fibrillation, and this medication isn't all that helpful for you. To this end, Dr. Wiley recommends starting a medium-dose blood thinner that will help prevent stroke. Dr. Wiley or your PCP can check your blood counts over the next few months to be sure you are not having any recurrence of your GI bleeding. Pending Studies at Discharge: No Stand-Alone Forms: My [employer], Smoking Cessation Skilled Items Patient informed of condition?: No DNR: Yes Discharge Level of Care: Other Communicable Disease: No Discharge Prognosis: Stable Lines: None Urinary Catheter: No Medications and DC Order Prescriptions: New apixaban 2.5 mg tablet 2.5 mg PO BID Qty: 60 RF: 0 Continued ferrous sulfate 325 mg (65 mg iron) tablet 325 mg PO DAILY RF: 0 polyethylene glycol 3350 [Miralax] 17 gram Powder In Packet 17 g PO DAILY PRN (Reason: Constipation) Qty: 0 RF: 0 prednisone 5 mg Tablet 5 mg PO DAILY Qty: 0 RF: 0 cyanocobalamin (vitamin B-12) [Vitamin B-12] 1,000 mcg Tablet 1,000 mcg PO DAILY Qty: 0 RF: 0 glucosamine sulfate [Glucosamine] 500 mg Tablet 1,000 mg PO DAILY Qty: 0 RF: 0 acetaminophen 500 mg Tablet 500 mg PO Q4 PRN (Reason: Pain) Qty: 0 RF: 0 ondansetron 8 mg Tablet,Disintegrating 8 mg PO TID PRN (Reason: n/v) Qty: 0 RF: 0 levothyroxine 75 mcg Tablet 75 mcg PO DAILY Qty: 0 RF: 0 potassium chloride 20 mEq Tablet Extended Release 20 meq PO DAILY Qty: 0 RF: 0 lisinopril 2.5 mg tablet 2.5 mg PO DAILY Qty: 30 RF: 5 amlodipine 5 mg tablet 5 mg PO DAILY Qty: 90 RF: 3 furosemide 20 mg tablet 20 mg PO .COMPLEX Qty: 30 RF: 5 buspirone 5 mg tablet 5 mg PO TID Qty: 90 RF: 0 pantoprazole [Protonix] 40 mg tablet,delayed release (DR/EC) 40 mg PO BID Qty: 0 RF: 0 calcium carbonate [Calcium 600] 600 mg calcium (1,500 mg) tablet 600 mg PO DAILY Qty: 90 RF: 3 calcitriol 0.5 mcg capsule 1.5 mcg PO DAILY Qty: 90 RF: 5 cholecalciferol (vitamin D3) 50 mcg (2,000 unit) capsule 50 mcg PO DAILY Qty: 30 RF: 0 cinacalcet [Sensipar] 30 mg tablet 30 mg PO BID Qty: 60 RF: 2 sucralfate 1 gram tablet 1 g PO QID PRN (Reason: ULCERS) Qty: 120 RF: 1 metoprolol succinate 25 mg tablet extended release 24 hr 25 mg PO DAILY RF: 0 ascorbic acid (vitamin C) 250 mg tablet 250 mg PO DAILY RF: 0 lorazepam 0.5 mg tablet 0.5 mg PO Q8H PRN (Reason: Anxiety) RF: 0 Mucinex DM 30-600 mg Tablet Extended Release 12 Hr 1 tab PO Q12H PRN (Reason: Congestion) RF: 0 nitroglycerin 0.4 mg Tablet, Sublingual 0.4 mg sublingual DIRECTED PRN (Reason: Chest Pain) RF: 0 hydrocortisone [Procto-Med HC] 2.5 % Cream With Perineal Applicator 1 applic [place] BID PRN (Reason: irritation) RF: 0 Discontinued cephalexin 500 mg capsule 500 mg PO BID Qty: 60 RF: 5 amiodarone 200 mg tablet 100 mg PO .COMPLEX RF: 0 Discharge Orders: Discharge Order (Routine); Ordered 07/22/21 Ordered By: Corey Cooley Admission Data Admit Date/Time: 07/21/21 16:04 Attending Provider: Corey Cooley Admit Provider: Blas Downey Primary Care Provider: Jadon WillcoxCampus [facility]Former[facility] Other Providers: Simone Cross ; Will Howard ; Edgar Wiley ; Corey Cooley Other Interventions: Discharge Summary Assessment (RN) Last Done: 07/22/21 11:14 Coding Level of Care Code D/C DAY MANAGEMENT >30 MINS Diagnoses TIA (transient ischemic attack) G45.9 Paroxysmal A-fib I48.0 Hypertension I10 Coronary artery disease I25.10 CHF (congestive heart failure) I50.9 Left shoulder pain M25.512 S/P IVC filter Z95.828 Anxiety F41.9 Hyperparathyroidism E21.3 Hypothyroid E03.9 Multiple myeloma C90.01 Multiple myeloma remission status: in remission Hx of deep venous thrombosis Z86.718
[2021-07-23] MEDS ORDERED: FUROSEMIDE 20 MG TAB PO SCH (09:00)
== END 2021-07-22 13:49 | disposition home or self-care (01) ==
LOC: 2N 12:21 → ED 12:21 → SUATTDRO 15:13 → 2N 16:12

== ENCOUNTER 2021-08-11 08:50 | Observation (INO) ==
[2021-08-11] MEDS ORDERED: SODIUM CHLORIDE 0.9% 1000ML 1,000 ML IV STA (09:10)
[2021-08-11] MEDS ORDERED: PIPERACILLIN/TAZOBACTAM 4.5 GM/120 ML BAG IV STA (09:10)
[2021-08-11 09:39] LABS: Appearance Urine Turbid (Clear); Bacteria Urine Automated 4+ (Negative); Bilirubin Urine Negative (Negative); Blood Urine 3+ (Negative); Color Urine Yellow; Glucose Urine UA Negative (Negative); Ketones Urine Negative (Negative); Leukocyte Esterase Urine 3+ (Negative); Nitrite Urine Negative (Negative); Protein Urine 2+ (Negative); RBC Urine Automated >30 /hpf (0-4); Specific Gravity Urine 1.015 (1.000-1.030); Urobilinogen Urine Negative (Negative); WBC Urine Automated >30 /hpf (0-5); pH Urine 5.5 (4.5-7.5)
--- NOTE | 2021-08-11 10:04 | CT Scan Report ---
CT SCAN OF THE ABDOMEN AND PELVIS WITHOUT CONTRAST CLINICAL HISTORY: UTI COMPARISON STUDY: September 16, 2017 TECHNIQUE: CT scan of the abdomen and pelvis was performed from the lung bases to the proximal femurs . Images are reviewed in the axial, sagittal, and coronal planes. IV contrast was not administered fo r this examination. A dose lowering technique was utilized adhering to the principles of ALARA. CT DOSE: 942.73 mGycm FINDINGS: Lower chest: Redemonstration of the few areas of scarring and bronchiectasis, unchanged since prior. Evaluation of upper abdomen and lower chest is limited due to beam hardening artifact from overlying patient's arms. Liver: The unenhanced liver is normal in size, contour, and attenuation. There is no intrahepatic analilia iary ductal dilatation. Gallbladder: Is fluid-filled without evidence of gallstones or pericholecystic inflammation. Spleen: Is normal in size with few parenchymal calcifications. Pancreas: Is atrophic Adrenal glands: Left adrenal gland is poorly seen. Right adrenal gland is normal. Kidneys: The unenhanced kidneys are normal in size without hydronephrosis. Nonobstructive nephrolithi asis is seen bilaterally. Largest calculus is measuring 4 mm in size and is seen on the right. 1.5 cm hypoattenuating lesion is seen within right kidney and most likely representing cyst. Bowel: Large hiatal hernia is seen, enlarged since prior. Bowel loops are nondilated. Appendix is not well seen. Moderate stool burden is seen within colonic loops. Diverticulosis of sigmoid colon is se en without evidence of diverticulitis. Peritoneum: There is no intraperitoneal free air or abdominal ascites. Vasculature: Abdominal aorta is tortuous with extensive calcifications within its wall. IVC filter is noted superior aspect of the filter appear to be outside of IVC lumen, findings are unc hanged since prior. Adenopathy: Few small retroperitoneal lymph nodes are seen, measuring less than 1 cm in short axis, n onpathological by CT size criteria. Pelvic viscera: Urinary bladder is collapsed which limits evaluation. Mild diffuse thickening of urin marley bladder wall is seen with mild surrounding fat stranding which could be seen in cystitis. Overall evaluation of the pelvic region is limited due to beam hardening artifact from left hip orthopedic h ardware. Uterus is not well seen, could be surgically absent. Skeletal structures: Lumbar dextroscoliosis is seen and associated with severe multilevel degenerativ e changes of the spine. Compression fracture deformity of the T12 is again seen, unchanged since prio r. Severe diffuse osteopenia. IMPRESSION: 1. Decompressed urinary bladder with diffuse thickening of its wall and mild surrounding fat strandi ng which could be seen in cystitis. 2. Interval enlargement of hiatal hernia. 3. Bilateral nonobstructive nephrolithiasis. Cystic lesion within right kidney, suboptimal evaluatio n due to lack of IV contrast. 4. Nondilated loops of bowel. Diverticulosis of sigmoid colon without evidence of diverticulitis. 5. Atherosclerosis. 6. IVC filter is in unchanged position. 7. Osteopenia and stable compression fracture deformity of T12. 8. The rest of findings as above. ACT 112: Negative or not required by law. The above report was generated using voice recognition software. It may contain grammatical, syntax o r spelling errors. Electronically signed by: Marsha Nickerson DO 08/11/2021 10:03 AM
[2021-08-11 11:03] LABS: Basophils # (auto) 0.03 K/uL (0-0.2); Basophils % (auto) 0.4 %; Eosinophils # (auto) 0.16 K/uL (0-0.5); Eosinophils % (auto) 1.9 %; Hematocrit (blood only) 33.4 % (37-47); Immature Granulocytes # (auto) 0.05 K/uL (0.00-0.02); Immature Granulocytes % (auto) 0.6 %; Lymphocytes # (auto) 1.32 K/uL (1.2-3.4); Lymphocytes % (auto) 15.9 %; Mean Corpuscular Hemoglobin 31.5 pg (25-34); Mean Corpuscular Hgb Conc 32.9 g/dL (32-36); Mean Corpuscular Volume 95.7 fL (80-100); Mean Platelet Volume 10.5 fL (7.4-10.4); Monocytes # (auto) 0.75 K/uL (0.11-0.59); Monocytes % (auto) 9.1 %; Neutrophils # (auto) 5.97 K/uL (1.4-6.5); Neutrophils % (auto) 72.1 %; Platelet Count 324 K/uL (130-400); RDW Coefficient of Variation 13.8 % (11.5-14.5); Red Blood Count 3.49 M/uL (4.2-5.4); White Blood Count 8.28 K/uL (4.8-10.8)
[2021-08-11 11:24] LABS: Albumin Level 3.3 gm/dl (3.4-5.0); BUN Creatinine Ratio 20.1 (10-20); Calcium 11.6 mg/dl (8.5-10.1); Creatinine Clr Calc Pharmacy 50.2 ml/min; Est GFR (African American) 75.2 ml/min; Est GFR (Non-African American) 64.8 ml/min; Potassium 3.9 mmol/L (3.5-5.1)
[2021-08-11 11:26] LABS: Bilirubin,Total 0.6 mg/dl (0.2-1); Globulin 3.4 gm/dl (2.5-4.0); Total Protein 6.7 gm/dl (6.4-8.2)
--- NOTE | 2021-08-11 12:44 | History & Physical Report ---
Date of Service August 11, 2021 Assessment & Plan (1) Recurrent UTI (urinary tract infection): Plan: SuitablePatient presents with concern for metabolic encephalopathy from urinary tract infection present on admission. On his urinary tract infection in September 2020 (also February 2020). She started on Zosyn by the emergency department we will continue the Zosyn at this time She does carry diagnosis of hyperparathyroidism and her calcium was noted to be 11.6 on presentation. It is possible the patient has a metabolic encephalopathy from hypercalcemia. The patient will be hydrated and her calcium will be rechecked. (2) Persistent atrial fibrillation: Plan: Patient typically on apixaban lower dose 2.5 twice daily, plus metoprolol succinate 25 daily (3) Chronic heart failure with preserved ejection fraction: Plan: Patient be hydrated cautiously given her history of this heart failure preserved ejection fraction however given her hypercalcemia we will hydrate her and follow her calcium, will continue her Lasix 3 times a week which will also help with her calcium (4) Hyperparathyroidism: Plan: Typically taking Calcitrol (5) Chronic steroid use: Plan: Patient on chronic prednisone therapy will not use stress dosing at this time unless she exhibits clinical signs and symptoms. Assuming this is for history of multiple myeloma (6) Hx of deep venous thrombosis: Plan: Patient has an IVC filter seen on CT scan (7) Hypertension: Plan: Size her metoprolol which uses for atrial fibrillation she continues on lisinopril and amlodipine (8) Depression with anxiety: Plan: Patient is on BuSpar mirtazapine these are continued (9) DVT prophylaxis: Plan: Patient vicky on Eliquis 2.5 twice daily Patient complains about polypharmacy particularly about her iron and vitamins. Patient will have her iron checked in the morning and be de-escalate to a multivitamin with iron History of Present Illness Primary Care Provider: [facility] [place] This patient presents with concern for metabolic encephalopathy from urinary tract infection. She has history of both Pseudomonas and Enterococcus in the past although they were with relatively little resistance. She reportedly had some confusion at [facility] [place] she has some urinary frequency and dysuria. She recently is been having intermittent bouts of loose bowel movements. Patient also carries a diagnosis of hyperparathyroidism and on intake her calcium is 11.6 which is elevated. Patient has no other signs or symptoms of complaints. Her for intermittent diarrhea constipation is a longstanding problem for her. She is slightly confused in the ER but relatively intact she is alert and oriented x3 although it takes her some time to answer questions. Allergies Allergy/AdvReac Type Severity Reaction Status Date / Time aspartame Allergy Mild HEADACHES, Verified 07/19/21 14:02 N/V shellfish derived Allergy Mild HEADACHE Verified 07/19/21 14:02 AND N/V Cipro Allergy Unknown ELEVATED Verified 09/20/17 17:44 BLOOD PRESSURE ciprofloxacin Allergy Unknown ELEVATED Verified 07/19/21 14:02 BLOOD PRESSURE Iodinated Contrast Media Allergy Unknown R/T Verified 07/19/21 14:02 SHELLFISH ALLERGY nitrofurantoin Allergy Unknown NAUSEA,ABDOMINAL Verified 07/19/21 14:02 PAIN Quinolones Allergy Unknown CIPRO - Verified 07/19/21 14:02 ELEVATED BLOOD PRESSURE Sulfa (Sulfonamide Allergy Unknown UNKNOWN - Verified 07/19/21 14:02 Antibiotics) PT STATES DOES NOT REMEMBER Home Medications Medication Instructions Recorded Confirmed Type acetaminophen 500 mg tablet 500 mg PO Q4 PRN #0 tab 09/13/17 08/11/21 History cyanocobalamin (vitamin B-12) 1,000 mcg PO DAILY #0 09/13/17 08/11/21 History 1,000 mcg tablet (Vitamin B-12) glucosamine sulfate 500 mg tablet 1,000 mg PO DAILY #0 09/13/17 08/11/21 History (Glucosamine) levothyroxine 75 mcg tablet 75 mcg PO DAILY #0 09/13/17 08/11/21 History ondansetron 8 mg disintegrating 8 mg PO TID PRN #0 tab 09/13/17 08/11/21 History tablet polyethylene glycol 3350 17 gram 17 g PO DAILY PRN #0 09/13/17 08/11/21 History oral powder packet (Miralax) prednisone 5 mg tablet 5 mg PO DAILY #0 tab 09/13/17 08/11/21 History potassium chloride 20 mEq 20 meq PO DAILY #0 tab 05/14/18 08/11/21 History tablet,extended release ferrous sulfate 325 mg (65 mg 325 mg PO BID 03/08/19 08/11/21 History iron) tablet metoprolol succinate 25 mg 25 mg PO DAILY 07/27/19 08/11/21 History tablet,extended release 24 hr lorazepam 0.5 mg tablet 0.5 mg PO Q8H PRN 08/23/19 08/11/21 History amlodipine 5 mg tablet 5 mg PO DAILY #90 tab 09/01/19 08/11/21 Rx ascorbic acid (vitamin C) 250 mg 250 mg PO DAILY 10/10/19 08/11/21 History tablet dextromethorphan-guaifenesin 30 1 tab PO Q12H PRN 10/20/19 08/11/21 History mg-600 mg tablet extended hr (Mucinex DM) hydrocortisone 2.5 % topical cream 1 applic [place] BID PRN 10/20/19 08/11/21 History with perineal applicator (Procto-Med HC) nitroglycerin 0.4 mg sublingual 0.4 mg SUBLINGUAL DIRECTED PRN 10/20/19 08/11/21 History tablet pantoprazole 40 mg tablet,delayed 40 mg PO BID #0 tab 04/18/20 08/11/21 History release (Protonix) calcium carbonate 600 mg calcium 600 mg PO DAILY #90 tab 11/28/20 08/11/21 Rx (1,500 mg) tablet (Calcium) calcitriol 0.5 mcg capsule 1.5 mcg PO DAILY #90 cap 02/17/21 08/11/21 Rx cholecalciferol (vitamin D3) 50 50 mcg PO DAILY #30 cap 03/24/21 08/11/21 Rx mcg (2,000 unit) capsule cinacalcet 30 mg tablet (Sensipar) 30 mg PO BID #60 tab 05/19/21 08/11/21 Rx sucralfate 1 gram tablet 1 g PO QID PRN #120 tab 07/17/21 08/11/21 Rx apixaban 2.5 mg tablet 2.5 mg PO BID #60 tab 07/22/21 08/11/21 Rx buspirone 5 mg tablet 5 mg PO TID 08/11/21 08/11/21 History diclofenac sodium 1 % topical gel 2 g TOPICAL TID 08/11/21 08/11/21 History furosemide 20 mg tablet 20 mg PO 3XWK 08/11/21 08/11/21 History lisinopril 2.5 mg tablet 2.5 mg PO DAILY 08/11/21 08/11/21 History melatonin 5 mg tablet 5 mg PO HS PRN 08/11/21 08/11/21 History mirtazapine 15 mg tablet 15 mg PO HS 08/11/21 08/11/21 History Past Med/Surg History Medical History (Updated 08/11/21 @ 12:44 by Oneil Delaney MD) Acute GI bleeding (2017) Acute hip pain Adenocarcinoma of rectum (2017) "Diarrhea and rectal bleeding Status post colonoscopy and biopsy 02/09/2017 showing high-grade dysplasia suspicious for adenocarcinoma Status post transrectal resection 02/15/2017 Stage pT2 cN0M0 Plan for combined radiation and chemotherapy, chemotherapy comprised of Xeloda Status post completion of radiation therapy 05/17/2017. She received 5040 cGy. Dosage of Xeloda was adjusted due to side effect of diarrhea" Anxiety Arthritis Atrial fibrillation with RVR Blood dyscrasia Cancer Chronic steroid use Chronic systolic heart failure Constipation Coronary artery disease DVT (deep venous thrombosis) Electrolyte abnormality Fatigue Gastric ulcer (2014) Gastrointestinal disorder GI bleed [place] filter in place High cholesterol History of GI bleed History of parathyroid disease Hx of deep venous thrombosis Hypertension Multiple myeloma Osteoporosis Paroxysmal A-fib Pneumonia (09/2019) Thrombophlebitis Thyroid disease Urinary tract infection Surgical History History of appendectomy History of bilateral salpingo-oophorectomy History of left hip hemiarthroplasty History of rectal surgery S/P CABG (coronary artery bypass graft) (2006) S/P hysterectomy S/P IVC filter Family History Other Coronary heart disease Heart failure Denies family history of Ovarian cancer Prostate cancer Myocardial infarction Breast cancer Colorectal cancer Social History Smoking Status: Never smoker Second Hand Exposure: No; Hx Alcohol Use: No Hx Substance Use: No Preferred Language: Telugu Communication Ability: Effective Visual Impairment: Partially Limited Hearing Ability: Hard of Hearing Attenuator Required: No Beliefs That Will Affect Care: None marital status: Current Living Situation: [facility] current occupational status: retired 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 How many Children do You have: 3 Feels Safe at Home: Yes Childhood Exposure to Second-Hand Smoke: No during the past year weight has: remained stable Dental Care, Regularly: Yes Physical Activity Frequency: Does not Exercise Seatbelt Use: always Sunscreen Use: Yes Assistive Devices: Denture - Upper Review of Systems Review of Systems: Mild distress and fatigue no headache, no visual changes no speech or swallowing issues no chest pain, pressure or palpitations no shortness of breath, cough or wheezes no abdominal pain, nausea or vomiting, intermittent diarrhea and constipation Dysuria and change in urine consistency no focal joint pain or swelling no back pain, CVA tenderness or radicular pain no bruising, bleeding or rashes no focal signs of weakness or numbness or altered sensation no complaints of anxiety or depression.. Physical Exam Physical Exam: The patient appeared well nourished and normally developed. Vital signs as documented. Head exam is normocephalic atraumatic Neck is without JVD, thyromegaly, or carotid bruits. Lungs are clear to auscultation, no focal loss of breath sounds Cardiac exam, Rhythm is regular.. No murmurs, rubs or gallops. Abdominal exam reveals normal bowel sounds, soft non tender, no masses Extremities are nonedematous and both pedal pulses are present Neurologic exam is alert and oriented, no focal loss of strength or sensation Skin is without bruises or rashes Psychologically is without concerns for anxiety or depression Results & Data Results & Data ([facility]) Vital Signs (Past 12 Hours) Vital Signs Temp Pulse Pulse Resp BP BP Pulse Ox 08/11/21 12:00 72 20 136/64 96 08/11/21 10:32 80 20 149/74 H 95 08/11/21 08:50 98.4 F 88 20 164/[address] abdomen pelvis 08/11/2021 IMPRESSION: 1. Decompressed urinary bladder with diffuse thickening of its wall and mild surrounding fat stranding which could be seen in cystitis. 2. Interval enlargement of hiatal hernia. 3. Bilateral nonobstructive nephrolithiasis. Cystic lesion within right kidney, suboptimal evaluation due to lack of IV contrast. 4. Nondilated loops of bowel. Diverticulosis of sigmoid colon without evidence of diverticulitis. 5. Atherosclerosis. 6. IVC filter is in unchanged position. 7. Osteopenia and stable compression fracture deformity of T12. PG Care Time/CCT Total # of Minutes Spent Total Time Spent with Patient: Total time spent is greater than 50% in coor dination of care (as documented) at patient's floor/unit and/or counseling patient: Coding Level of Care Code 33731 Initial Inpt Care Lvl 3 Diagnoses Persistent atrial fibrillation I48.19 Chronic heart failure with preserved ejection fraction I50.32 Recurrent UTI (urinary tract infection) N39.0 Hyperparathyroidism E21.3 Chronic steroid use Hx of deep venous thrombosis Z86.718 Hypertension I10 Depression with anxiety F41.8 DVT prophylaxis Z29.9
--- NOTE | 2021-08-11 13:37 | History & Physical Report ---
Date of Service August 11, 2021 Assessment & Plan (1) Recurrent UTI (urinary tract infection): Plan: SuitablePatient presents with concern for metabolic encephalopathy from urinary tract infection present on admission. On his urinary tract infection in September 2020 (also February 2020). She started on Zosyn by the emergency department we will continue the Zosyn at this time She does carry diagnosis of hyperparathyroidism and her calcium was noted to be 11.6 on presentation. It is possible the patient has a metabolic encephalopathy from hypercalcemia. The patient will be hydrated and her calcium will be rechecked. Patient typically is on has been on Keflex prior to her last admission where she was in with a TIA. Because of Eliquis being started her Keflex was stopped. Her son is concerned that the stopping of the Keflex is what allowed her urinary tract infection to recur. In the past she has been seen by infectious disease for recurrent drug-resistant organisms. (2) Persistent atrial fibrillation: Plan: Patient typically on apixaban lower dose 2.5 twice daily, plus metoprolol succinate 25 daily (3) Chronic heart failure with preserved ejection fraction: Plan: Patient be hydrated cautiously given her history of this heart failure preserved ejection fraction however given her hypercalcemia we will hydrate her and follow her calcium, will continue her Lasix 3 times a week which will also help with her calcium (4) Hyperparathyroidism: Plan: Typically taking Calcitrol (5) Chronic steroid use: Plan: Patient on chronic prednisone therapy will not use stress dosing at this time unless she exhibits clinical signs and symptoms. Assuming this is for history of multiple myeloma (6) Hx of deep venous thrombosis: Plan: Patient has an IVC filter seen on CT scan patient's had multiple DVTs the [place] filter was placed in 2006 (7) Hypertension: Plan: Size her metoprolol which uses for atrial fibrillation she continues on lisinopril and amlodipine (8) Depression with anxiety: Plan: Patient is on BuSpar mirtazapine these are continued (9) DVT prophylaxis: Plan: Patient vicky on Eliquis 2.5 twice daily Patient complains about polypharmacy particularly about her iron and vitamins. Patient will have her iron checked in the morning and be de-escalate to a multivitamin with iron History of Present Illness Primary Care Provider: [facility] Allergies Allergy/AdvReac Type Severity Reaction Status Date / Time aspartame Allergy Mild HEADACHES, Verified 07/19/21 14:02 N/V shellfish derived Allergy Mild HEADACHE Verified 07/19/21 14:02 AND N/V Cipro Allergy Unknown ELEVATED Verified 09/20/17 17:44 BLOOD PRESSURE ciprofloxacin Allergy Unknown ELEVATED Verified 07/19/21 14:02 BLOOD PRESSURE Iodinated Contrast Media Allergy Unknown R/T Verified 07/19/21 14:02 SHELLFISH ALLERGY nitrofurantoin Allergy Unknown NAUSEA,ABDOMINAL Verified 07/19/21 14:02 PAIN Quinolones Allergy Unknown CIPRO - Verified 07/19/21 14:02 ELEVATED BLOOD PRESSURE Sulfa (Sulfonamide Allergy Unknown UNKNOWN - Verified 07/19/21 14:02 Antibiotics) PT STATES DOES NOT REMEMBER Home Medications Medication Instructions Recorded Confirmed Type acetaminophen 500 mg tablet 500 mg PO Q4 PRN #0 tab 09/13/17 08/11/21 History cyanocobalamin (vitamin B-12) 1,000 mcg PO DAILY #0 09/13/17 08/11/21 History 1,000 mcg tablet (Vitamin B-12) glucosamine sulfate 500 mg tablet 1,000 mg PO DAILY #0 09/13/17 08/11/21 History (Glucosamine) levothyroxine 75 mcg tablet 75 mcg PO DAILY #0 09/13/17 08/11/21 History ondansetron 8 mg disintegrating 8 mg PO TID PRN #0 tab 09/13/17 08/11/21 History tablet polyethylene glycol 3350 17 gram 17 g PO DAILY PRN #0 09/13/17 08/11/21 History oral powder packet (Miralax) prednisone 5 mg tablet 5 mg PO DAILY #0 tab 09/13/17 08/11/21 History potassium chloride 20 mEq 20 meq PO DAILY #0 tab 05/14/18 08/11/21 History tablet,extended release ferrous sulfate 325 mg (65 mg 325 mg PO BID 03/08/19 08/11/21 History iron) tablet metoprolol succinate 25 mg 25 mg PO DAILY 07/27/19 08/11/21 History tablet,extended release 24 hr lorazepam 0.5 mg tablet 0.5 mg PO Q8H PRN 08/23/19 08/11/21 History amlodipine 5 mg tablet 5 mg PO DAILY #90 tab 09/01/19 08/11/21 Rx ascorbic acid (vitamin C) 250 mg 250 mg PO DAILY 10/10/19 08/11/21 History tablet dextromethorphan-guaifenesin 30 1 tab PO Q12H PRN 10/20/19 08/11/21 History mg-600 mg tablet extended [id number] hr (Mucinex DM) hydrocortisone 2.5 % topical cream 1 applic [place] BID PRN 10/20/19 08/11/21 History with perineal applicator (Procto-Med HC) nitroglycerin 0.4 mg sublingual 0.4 mg SUBLINGUAL DIRECTED PRN 10/20/19 08/11/21 History tablet pantoprazole 40 mg tablet,delayed 40 mg PO BID #0 tab 04/18/20 08/11/21 History release (Protonix) calcium carbonate 600 mg calcium 600 mg PO DAILY #90 tab 11/28/20 08/11/21 Rx (1,500 mg) tablet (Calcium) calcitriol 0.5 mcg capsule 1.5 mcg PO DAILY #90 cap 02/17/21 08/11/21 Rx cholecalciferol (vitamin D3) 50 50 mcg PO DAILY #30 cap 03/24/21 08/11/21 Rx mcg (2,000 unit) capsule cinacalcet 30 mg tablet (Sensipar) 30 mg PO BID #60 tab 05/19/21 08/11/21 Rx sucralfate 1 gram tablet 1 g PO QID PRN #120 tab 07/17/21 08/11/21 Rx apixaban 2.5 mg tablet 2.5 mg PO BID #60 tab 07/22/21 08/11/21 Rx buspirone 5 mg tablet 5 mg PO TID 08/11/21 08/11/21 History diclofenac sodium 1 % topical gel 2 g TOPICAL TID 08/11/21 08/11/21 History furosemide 20 mg tablet 20 mg PO 3XWK 08/11/21 08/11/21 History lisinopril 2.5 mg tablet 2.5 mg PO DAILY 08/11/21 08/11/21 History melatonin 5 mg tablet 5 mg PO HS PRN 08/11/21 08/11/21 History mirtazapine 15 mg tablet 15 mg PO HS 08/11/21 08/11/21 History Past Med/Surg History Medical History (Updated 08/11/21 @ 12:44 by Oneil Delaney MD) Acute GI bleeding (2017) Acute hip pain Adenocarcinoma of rectum (2017) "Diarrhea and rectal bleeding Status post colonoscopy and biopsy 02/09/2017 showing high-grade dysplasia suspicious for adenocarcinoma Status post transrectal resection 02/15/2017 Stage pT2 cN0M0 Plan for combined radiation and chemotherapy, chemotherapy comprised of Xeloda Status post completion of radiation therapy 05/17/2017. She received 5040 cGy. Dosage of Xeloda was adjusted due to side effect of diarrhea" Anxiety Arthritis Atrial fibrillation with RVR Blood dyscrasia Cancer Chronic steroid use Chronic systolic heart failure Constipation Coronary artery disease DVT (deep venous thrombosis) Electrolyte abnormality Fatigue Gastric ulcer (2014) Gastrointestinal disorder GI bleed [place] filter in place High cholesterol History of GI bleed History of parathyroid disease Hx of deep venous thrombosis Hypertension Multiple myeloma Osteoporosis Paroxysmal A-fib Pneumonia (09/2019) Thrombophlebitis Thyroid disease Urinary tract infection Surgical History History of appendectomy History of bilateral salpingo-oophorectomy History of left hip hemiarthroplasty History of rectal surgery S/P CABG (coronary artery bypass graft) (2006) S/P hysterectomy S/P IVC filter Family History Other Coronary heart disease Heart failure Denies family history of Ovarian cancer Prostate cancer Myocardial infarction Breast cancer Colorectal cancer Social History Smoking Status: Never smoker Second Hand Exposure: No; Hx Alcohol Use: No Hx Substance Use: No Preferred Language: Swedish Communication Ability: Effective Visual Impairment: Partially Limited Hearing Ability: Hard of Hearing Direct Marketing Coordinator Required: No Beliefs That Will Affect Care: None marital status: Current Living Situation: [facility] current occupational status: retired 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 How 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 Children do You have: 3 Feels Safe at Home: Yes Childhood Exposure to Second-Hand Smoke: No during the past year weight has: remained stable Dental Care, Regularly: Yes Physical Activity Frequency: Does not Exercise Seatbelt Use: always Sunscreen Use: Yes Assistive Devices: Denture - Upper Results & Data Results & Data ([facility]) Vital Signs (Past 12 Hours) Vital Signs Temp Pulse Pulse Resp BP BP Pulse Ox 08/11/21 12:41 68 20 141/65 H 98 08/11/21 12:00 72 20 136/64 96 08/11/21 10:32 80 20 149/74 H 95 08/11/21 08:50 98.4 F 88 20 164/81 H 98 Code Status & VTE Plan VTE Prophylaxis Plan VTE Prophylaxis will be ordered: Yes PG Care Time/CCT Total # of Minutes Spent Total Time Spent with Patient: Total time spent is greater than 50% in coordination of care (as documented) at patient's floor/unit and/or counseling patient: Coding Level of Care Code None Diagnoses Recurrent UTI (urinary tract infection) N39.0 Persistent atrial fibrillation I48.19 Chronic heart failure with preserved ejection fraction I50.32 Hyperparathyroidism E21.3 Chronic steroid use Hx of deep venous thrombosis Z86.718 Hypertension I10 Depression with anxiety F41.8 DVT prophylaxis Z29.9
--- NOTE | 2021-08-11 14:48 | Emergency Department Note ---
Impression & Plan Recurrent UTI (urinary tract infection), Abdominal pain, lower, Acute confusion ED Provider Note INFORMANT: Patient ED PROVIDER(S): Juancarlos Dodd MD CHIEF COMPLAINT: Urinary symptoms PLAN: Disposition: Admitted Condition: Good Outpatient prescription management: none Referral: None MEDICAL DECISION MAKING: Patient presented because of concerns about confusion as well as urinary sy mptoms. Record was reviewed and she has had complicated urinary tract infections in the past most notably, Pseudomonas, and Enterobacter. The patient has an allergy to quinolones. She was on Keflex prior to this encounter today. She had an obvious to us. Her CBC and chemistry panel was unremarkable. Patient's urinalysis is very concerning for infection. CT imaging was performed and reveals findings consistent with cystitis. The patient was treated with IV Zosyn which would cover the Enterobacter and Pseudomonas. This would also cover her prior E. coli infection. Due to the scenario, her allergies and prior culture results further management in the hospital was felt to be appropriate. Consultation was made with the [facility]. Patient was evaluated in the ER for further management. Triage Nursing notes reviewed and agree them. Vital Signs: reviewed and remarkable for no significant abnormalities Differential diagnosis: Urinary tract infection, intra-abdominal process, hypoglycemia, electrolyte abno rmalities, overdose, toxicologic, cardiac sources, intracerebral event, neurologic, trauma, as well as other pathologies. Diagnostics interpreted by me: ECG: none Cardiac Monitoring: Cardiac monitoring ordered by me: The patient was placed on continuous cardiac monitoring and observed. It revealed a normal sinus rhythm at 67 beats per minute without ectopy or evidence of dysrhythmia. Imaging studies: CT can of the abdomen pelvis as noted above. Cystitis. I refer you to the EMR for further details. HPI: The patient is a 86 year old female who presents to the Emergency Room with complaints of urinary symptoms. This started 2 weeks ago and is worsening. The patient also notes the following associated symptoms, some mild confusion and lower abdominal pain. The patient was on Keflex due to history of UTI. She notes the symptoms developed. Family believes that she may have been taken off of her antibiotic prophylaxis. The patient has found no relieving factors. Current pain is rated as 4/10. Patient notes a history of complicated UTI. She has required IV treatment in the past. It was reported that staff felt that she was slightly confused and they were concerned about UTI given her history. She was sent to the ER for other issues. Pt denies LOC, headache, fevers, chills, diaphoresis, visual changes, neck pain, chest pain, breathing difficulties, nausea, vomiting, back pain, melena, hematochezia, numbness, weakness, lymphadenopathy, rash, or other complaints. ROS: See above HPI for pertinent positives & negatives. A total of 10 systems reviewed and were otherwise negative. PAST MEDICAL HISTORY:See Below , acute UTI, multiple myeloma, CAD PAST SURGICAL HISTORY:See Below, CABG, IVC filter FAMILY HISTORY:See Below SOCIAL HISTORY:See Below, resides at [facility] HOME MEDICATIONS:See Below ALLERGIES:See Below VITALS:See Below PHYSICAL EXAMINATION: GENERAL: Awake, alert, [id number], in no distress HENT: Normocephalic, atraumatic. Oropharynx unremarkable. EYES: Normal conjunctiva. Sclera non-icteric. PERRLA. NECK: Inspection normal. Non-tender. Supple. No nuchal rigidity. FROM. No masses. RESPIRATORY: Clear to auscultation. No wheezes. No rales. Normal respiratory effort. CARDIAC: Normal rate. Normal rhythm. No murmurs. No rubs. Extremities warm and well perfused. Pulses equal. No JVD. GI: Soft, non-distended. Suprapubic tenderness to palpation. No rebound or guarding. No masses. RECTAL: Deferred. MUSCULOSKELETAL: Atraumatic. Chest examination reveals no tenderness. The back is symmetrical on inspection without obvious abnormality. There is no CVA tenderness to palpation. No joint edema. LOWER EXTREMITIES: Calves are equal size bilaterally and non-tender. No edema. No discoloration. NEURO: Minimally confused otherwise normal sensorium. No sensory or motor deficits noted. SKIN: No rash or jaundice noted. Juancarlos Dodd MD Past Med/Surg History Medical History (Updated 08/11/21 @ 14:48 by Juancarlos Dodd MD) Acute GI bleeding (2017) Acute hip pain Adenocarcinoma of rectum (2017) "Diarrhea and rectal bleeding Status post colonoscopy and biopsy 02/09/2017 showing high-grade dysplasia suspicious for adenocarcinoma Status post transrectal resection 02/15/2017 Stage pT2 [id number] Plan for combined radiation and chemotherapy, chemotherapy comprised of Xeloda Status post completion of radiation therapy 05/17/2017. She received 5040 cGy. Dosage of Xeloda was adjusted due to side effect of diarrhea" Anxiety Arthritis Atrial fibrillation with RVR Blood dyscrasia Cancer Chronic steroid use Chronic systolic heart failure Constipation Coronary artery disease DVT (deep venous thrombosis) Electrolyte abnormality Fatigue Gastric ulcer (2014) Gastrointestinal disorder GI bleed [place] filter in place High cholesterol History of GI bleed History of parathyroid disease Hx of deep venous thrombosis Hypertension Multiple myeloma Osteoporosis Paroxysmal A-fib Pneumonia (09/2019) Thrombophlebitis Thyroid disease Urinary tract infection Surgical History History of appendectomy History of bilateral salpingo-oophorectomy History of left hip hemiarthroplasty History of rectal surgery S/P CABG (coronary artery bypass graft) (2006) S/P hysterectomy S/P IVC filter Family History Other Coronary heart disease Heart failure Denies family history of Ovarian cancer Prostate cancer Myocardial infarction Breast cancer Colorectal cancer Social History Smoking Status: Never smoker Second Hand Exposure: No; Hx Alcohol Use: No Hx Substance Use: No Preferred Language: Uzbek Communication Ability: Effective Visual Impairment: Partially Limited Hearing Ability: Hard of Hearing [employer] Required: No Beliefs That Will Affect Care: None marital status: Current Living Situation: Personal Care Facility current occupational status: retired 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 [employer] How many Children do You have: 3 Feels Safe at Home: Yes Childhood Exposure to Second-Hand Smoke: No during the past year weight has: remained stable Dental Care, Regularly: Yes Physical Activity Frequency: Does not Exercise Seatbelt Use: always Sunscreen Use: Yes Assistive Devices: Denture - Upper Allergies Allergies Allergy/AdvReac Type Severity Reaction Status Date / Time aspartame Allergy Mild HEADACHES, Verified 07/19/21 14:02 N/V shellfish derived Allergy Mild HEADACHE Verified 07/19/21 14:02 AND N/V Cipro Allergy Unknown ELEVATED Verified 09/20/17 17:44 BLOOD PRESSURE ciprofloxacin Allergy Unknown ELEVATED Verified 07/19/21 14:02 BLOOD PRESSURE Iodinated Contrast Media Allergy Unknown R/T Verified 07/19/21 14:02 SHELLFISH ALLERGY nitrofurantoin Allergy Unknown NAUSEA,ABDOMINAL Verified 07/19/21 14:02 PAIN Quinolones Allergy Unknown CIPRO - Verified 07/19/21 14:02 ELEVATED BLOOD PRESSURE Sulfa (Sulfonamide Allergy Unknown UNKNOWN - Verified 07/19/21 14:02 Antibiotics) PT STATES DOES NOT REMEMBER Home Meds Home Medications Medication Instructions Recorded Confirmed acetaminophen 500 mg tablet 500 mg PO Q4 PRN #0 tab 09/13/17 08/11/21 cyanocobalamin (vitamin B-12) 1,000 mcg PO DAILY #0 09/13/17 08/11/21 1,000 mcg tablet (Vitamin B-12) glucosamine sulfate 500 mg tablet 1,000 mg PO DAILY #0 09/13/17 08/11/21 (Glucosamine) levothyroxine 75 mcg tablet 75 mcg PO DAILY #0 09/13/17 08/11/21 ondansetron 8 mg disintegrating 8 mg PO TID PRN #0 tab 09/13/17 08/11/21 tablet polyethylene glycol 3350 17 gram 17 g PO DAILY PRN #0 09/13/17 08/11/21 oral powder packet (Miralax) prednisone 5 mg tablet 5 mg PO DAILY #0 tab 09/13/17 08/11/21 potassium chloride 20 mEq 20 meq PO DAILY #0 tab 05/14/18 08/11/21 tablet,extended release ferrous sulfate 325 mg (65 mg 325 mg PO BID 03/08/19 08/11/21 iron) tablet metoprolol succinate 25 mg 25 mg PO DAILY 07/27/19 08/11/21 tablet,extended release 24 hr lorazepam 0.5 mg tablet 0.5 mg PO Q8H PRN 08/23/19 08/11/21 ascorbic acid (vitamin C) 250 mg 250 mg PO DAILY 10/10/19 08/11/21 tablet dextromethorphan-guaifenesin 30 1 tab PO Q12H PRN 10/20/19 08/11/21 mg-600 mg tablet extended puspswn61 hr (Mucinex DM) hydrocortisone 2.5 % topical cream 1 applic CO BID PRN 10/20/19 08/11/21 with perineal applicator (Procto-Med HC) nitroglycerin 0.4 mg sublingual 0.4 mg SUBLINGUAL DIRECTED PRN 10/20/19 08/11/21 tablet pantoprazole 40 mg tablet,delayed 40 mg PO BID #0 tab 05/28/20 09/20/21 release (Protonix) buspirone 5 mg tablet 5 mg PO TID 08/11/21 08/11/21 diclofenac sodium 1 % topical gel 2 g TOPICAL TID 08/11/21 08/11/21 furosemide 20 mg tablet 20 mg PO 3XWK 08/11/21 08/11/21 lisinopril 2.5 mg tablet 2.5 mg PO DAILY 08/11/21 08/11/21 melatonin 5 mg tablet 5 mg PO HS PRN 08/11/21 08/11/21 mirtazapine 15 mg tablet 15 mg PO HS 08/11/21 08/11/21 Previous Rx's Medication Instructions Recorded amlodipine 5 mg tablet 5 mg PO DAILY #90 tab 09/01/19 calcium carbonate 600 mg calcium 600 mg PO DAILY #90 tab 11/28/20 (1,500 mg) tablet (Calcium) calcitriol 0.5 mcg capsule 1.5 mcg PO DAILY #90 cap 02/17/21 cholecalciferol (vitamin D3) 50 50 mcg PO DAILY #30 cap 03/24/21 mcg (2,000 unit) capsule cinacalcet 30 mg tablet (Sensipar) 30 mg PO BID #60 tab 05/19/21 sucralfate 1 gram tablet 1 g PO QID PRN #120 tab 07/17/21 apixaban 2.5 mg tablet 2.5 mg PO BID #60 tab 07/22/21 Results & Data (ED) Vital Signs Vital Signs - 24 hr 08/11/21 08:50 08/11/21 10:32 08/11/21 12:00 Temperature 36.9 C Temperature Source Oral Pulse Rate 88 Pulse Rate [Left Finger] 80 72 Respiratory Rate 20 20 20 Respiratory Effort / Characteristics Non-Labored Non-Labored Respiratory Depth Normal Normal Normal Blood Pressure 164/81 H Blood Pressure [Left Arm] 149/74 H 136/64 Blood Pressure Mean 108 Blood Pressure Mean [Left Arm] 99 88 Blood Pressure Position [Left Arm] Pulse Oximetry 98 95 96 Oxygen Delivery Method Room Air Room Air Room Air Sepsis Recent Fever Within 48 Hours No Sepsis New/Unexplained Change in Mental Status No Sepsis Action Taken by Nursing No Action Required 08/11/21 12:41 08/11/21 14:35 Temperature Temperature Source Pulse Rate Pulse Rate [Left Finger] 68 67 Respiratory Rate 20 16 Respiratory Effort / Characteristics Non-Labored Respiratory Depth Normal Blood Pressure Blood Pressure [Left Arm] 141/65 H 147/56 H Blood Pressure Mean Blood Pressure Mean [Left Arm] 90 86 Blood Pressure Position [Left Arm] Lying Pulse Oximetry 98 97 Oxygen Delivery Method Room Air Room Air Sepsis Recent Fever Within 48 Hours Sepsis New/Unexplained Change in Mental Status Sepsis Action Taken by Nursing Laboratory Data Result diagrams: 08/11/21 10:51 08/11/21 10:51 Lab Results 08/11/21 08/11/21 08/11/21 Range/Units 09:04 10:51 10:51 WBC 8.28 (4.8-10.8) K/uL RBC 3.49 L (4.2-5.4) M/uL Hgb 11.0 L (12.0-16.0) g/dL Hct 33.4 L (37-47) % MCV 95.7 (80-100) fL MCH 31.5 (25-34) pg MCHC 32.9 (32-36) g/dL RDW Std Deviation 48.0 H (36.4-46.3) fL RDW Coeff of [place] 13.8 (11.5-14.5) % Plt Count 324 (130-400) K/uL MPV 10.5 H (7.4-10.4) fL Immature Gran % (Auto) 0.6 % Neut % (Auto) 72.1 % Lymph % (Auto) 15.9 % [place] % (Auto) 9.1 % Eos % (Auto) 1.9 % Baso % (Auto) 0.4 % Neut # (Auto) 5.97 (1.4-6.5) K/uL Lymph # (Auto) 1.32 (1.2-3.4) K/uL [place] # (Auto) 0.75 H (0.11-0.59) K/uL Eos # (Auto) 0.16 (0-0.5) K/uL Baso # (Auto) 0.03 (0-0.2) K/uL Immature Gran # (Auto) 0.05 H (0.00-0.02) K/uL Sodium 136 (136-145) mmol/L Potassium 3.9 (3.5-5.1) mmol/L Chloride 103 (98-107) mmol/L Carbon Dioxide 28 (21-32) mmol/L Anion Gap 5.0 (3-11) BUN 16 (7-18) mg/dl Creatinine 0.81 (0.6-1.2) mg/dl Est Cr Clr Drug Dosing 50.2 ml/min Est GFR ( Amer) 75.2 ml/min Est GFR (Non-Af Amer) 64.8 ml/min BUN/Creatinine Ratio 20.1 H (10-20) Glucose 82 (70-99) mg/dl Lactate (0.4-2.0) mmol/L Calcium 11.6 H (8.5-10.1) mg/dl Total Bilirubin 0.6 (0.2-1) mg/dl AST 11 L (15-37) U/L ALT 16 (12-78) U/L Alkaline Phosphatase 39 L (45-117) U/L Total Protein 6.7 (6.4-8.2) gm/dl Albumin 3.3 L (3.4-5.0) gm/dl Globulin 3.4 (2.5-4.0) gm/dl Albumin/Globulin Ratio 1.0 (0.9-2) Urine Color Yellow Urine Appearance Turbid A (Clear) Urine pH 5.5 (4.5-7.5) Ur Specific [place] 1.015 (1.000-1.030) Urine Protein 2+ H (Negative) Urine Glucose (UA) Negative (Negative) Urine Ketones Negative (Negative) Urine Blood 3+ H (Negative) Urine Nitrite Negative (Negative) Urine Bilirubin Negative (Negative) Urine Urobilinogen Negative (Negative) Ur Leukocyte Esterase 3+ H (Negative) Urine WBC (Auto) >30 H (0-5) /hpf Urine RBC (Auto) >30 H (0-4) /hpf U Hyaline Cast (Auto) 1-5 (0-5) /lpf U Epithel Cells (Auto) 5-10 H (0-5) /lpf Urine Bacteria (Auto) 4+ H (Negative) Urine Yeast Not Reportable COVID-19 Eval Order SARS-CoV-2 (PCR) (Negative) 08/11/21 08/11/21 08/11/21 Range/Units 10:51 12:41 12:41 WBC (4.8-10.8) K/uL RBC (4.2-5.4) M/uL Hgb (12.0-16.0) g/dL Hct (37-47) % MCV (80-100) fL MCH (25-34) pg MCHC (32-36) g/dL RDW Std Deviation (36.4-46.3) fL RDW Coeff of [place] (11.5-14.5) % Plt Count (130-400) K/uL MPV (7.4-10.4) fL Immature Gran % (Auto) % Neut % (Auto) % Lymph % (Auto) % [place] % (Auto) % Eos % (Auto) % Baso % (Auto) % Neut # (Auto) (1.4-6.5) K/uL Lymph # (Auto) (1.2-3.4) K/uL [place] # (Auto) (0.11-0.59) K/uL Eos # (Auto) (0-0.5) K/uL Baso # (Auto) (0-0.2) K/uL Immature Gran # (Auto) (0.00-0.02) K/uL Sodium (136-145) mmol/L Potassium (3.5-5.1) mmol/L Chloride (98-107) mmol/L Carbon Dioxide (21-32) mmol/L Anion Gap (3-11) BUN (7-18) mg/dl Creatinine (0.6-1.2) mg/dl Est Cr Clr Drug Dosing ml/min Est GFR ( Amer) ml/min Est GFR (Non-Af Amer) ml/min BUN/Creatinine Ratio (10-20) Glucose (70-99) mg/dl Lactate 1.2 (0.4-2.0) mmol/L Calcium (8.5-10.1) mg/dl Total Bilirubin (0.2-1) mg/dl AST (15-37) U/L ALT (12-78) U/L Alkaline Phosphatase (45-117) U/L Total Protein (6.4-8.2) gm/dl Albumin (3.4-5.0) gm/dl Globulin (2.5-4.0) gm/dl Albumin/Globulin Ratio (0.9-2) Urine Color Urine Appearance (Clear) Urine pH (4.5-7.5) Ur Specific [place] (1.000-1.030) Urine Protein (Negative) Urine Glucose (UA) (Negative) Urine Ketones (Negative) Urine Blood (Negative) Urine Nitrite (Negative) Urine Bilirubin (Negative) Urine Urobilinogen (Negative) Ur Leukocyte Esterase (Negative) Urine WBC (Auto) (0-5) /hpf Urine RBC (Auto) (0-4) /hpf U Hyaline Cast (Auto) (0-5) /lpf U Epithel Cells (Auto) (0-5) /lpf Urine Bacteria (Auto) (Negative) Urine Yeast COVID-19 Eval Order Covid19 at [facility] SARS-CoV-2 (PCR) NEGATIVE (Negative) Administered Medications Sodium Chloride (Nss 1000ml) 1,000 mls @ 125 mls/hr IV .Q8H STA Stop: 08/11/21 17:09 Last Admin: 08/11/21 11:02 Dose: 125 mls/hr Documented by: [id number] Discontinued Medications Piperacillin Sod/Tazobactam Sod (Zosyn) 4.5 gm in 120 mls @ 200 mls/hr IV NOW STA Stop: 08/11/21 09:45 Last Infusion: 08/11/21 12:09 Dose: 0 mls/hr Documented by: [id number] Admin: 08/11/21 11:02 Dose: 200 mls/hr Documented by: [id number] Imaging Data Radiologist's Impression: Abdomen/Pelvis CT 08/11/21 09:10 CT SCAN OF THE ABDOMEN AND PELVIS WITHOUT CONTRAST CLINICAL HISTORY: UTI COMPARISON STUDY: September 16, 2017 TECHNIQUE: CT scan of the abdomen and pelvis was performed from the lung bases to the proximal femurs. Images are reviewed in the axial, sagittal, and coronal planes. IV contrast was not administered for this examination. A dose lowering technique was utilized adhering to the principles of ALARA. CT DOSE: 942.73 mGycm FINDINGS: Lower chest: Redemonstration of the few areas of scarring and bronchiectasis, unchanged since prior. Evaluation of upper abdomen and lower chest is limited due to beam hardening artifact from overlying patient's arms. Liver: The unenhanced liver is normal in size, contour, and attenuation. There is no intrahepatic biliary ductal dilatation. Gallbladder: Is fluid-filled without evidence of gallstones or pericholecystic inflammation. Spleen: Is normal in size with few parenchymal calcifications. Pancreas: Is atrophic Adrenal glands: Left adrenal gland is poorly seen. Right adrenal gland is normal. Kidneys: The unenhanced kidneys are normal in size without hydronephrosis. Nonobstructive nephrolithiasis is seen bilaterally. Largest calculus is measuring 4 mm in size and is seen on the right. 1.5 cm hypoattenuating lesion is seen within right kidney and most likely representing cyst. Bowel: Large hiatal hernia is seen, enlarged since prior. Bowel loops are nondilated. Appendix is not well seen. Moderate stool burden is seen within colonic loops. Diverticulosis of sigmoid colon is seen without evidence of diverticulitis. Peritoneum: There is no intraperitoneal free air or abdominal ascites. Vasculature: Abdominal aorta is tortuous with extensive calcifications within its wall. IVC filter is noted superior aspect of the filter appear to be outside of IVC lumen, findings are unchanged since prior. Adenopathy: Few small retroperitoneal lymph nodes are seen, measuring less than 1 cm in short axis, nonpathological by CT size criteria. Pelvic viscera: Urinary bladder is collapsed which limits evaluation. Mild diffuse thickening of urinary bladder wall is seen with mild surrounding fat stranding which could be seen in cystitis. Overall evaluation of the pelvic region is limited due to beam hardening artifact from left hip orthopedic hardware. Uterus is not well seen, could be surgically absent. Skeletal structures: Lumbar dextroscoliosis is seen and associated with severe multilevel degenerative changes of the spine. Compression fracture deformity of the T12 is again seen, unchanged since prior. Severe diffuse osteopenia. IMPRESSION: 1. Decompressed urinary bladder with diffuse thickening of its wall and mild surrounding fat stranding which could be seen in cystitis. 2. Interval enlargement of hiatal hernia. 3. Bilateral nonobstructive nephrolithiasis. Cystic lesion within right kidney, suboptimal evaluation due to lack of IV contrast. 4. Nondilated loops of bowel. Diverticulosis of sigmoid colon without evidence of diverticulitis. 5. Atherosclerosis. 6. IVC filter is in unchanged position. 7. Osteopenia and stable compression fracture deformity of T12. 8. The rest of findings as above. ACT 112: Negative or not required by law. The above report was generated using voice recognition software. It may contain grammatical, syntax or spelling errors. Electronically signed by: Marsha Nickerson DO 08/11/2021 10:03 AM Discharge Plan Visit Data Chief Complaint: Urinary Symptoms Stated Complaint: URINARY SYMPTOMS ED Provider: Juancarlos Dodd Discharge Problem: Recurrent UTI (urinary tract infection), Abdominal pain, lower, Acute confusion Forms Stand Alone Forms: [facility] Prescriptions Prescriptions: No Action ferrous sulfate 325 mg (65 mg iron) tablet 325 mg PO BID RF: 0 polyethylene glycol 3350 [Miralax] 17 gram Powder In Packet 17 g PO DAILY PRN (Reason: Constipation) Qty: 0 RF: 0 prednisone 5 mg Tablet 5 mg PO DAILY Qty: 0 RF: 0 cyanocobalamin (vitamin B-12) [Vitamin B-12] 1,000 mcg Tablet 1,000 mcg PO DAILY Qty: 0 RF: 0 glucosamine sulfate [Glucosamine] 500 mg Tablet 1,000 mg PO DAILY Qty: 0 RF: 0 acetaminophen 500 mg Tablet 500 mg PO Q4 PRN (Reason: Pain) Qty: 0 RF: 0 ondansetron 8 mg Tablet,Disintegrating 8 mg PO TID PRN (Reason: n/v) Qty: 0 RF: 0 levothyroxine 75 mcg Tablet 75 mcg PO DAILY Qty: 0 RF: 0 potassium chloride 20 mEq Tablet Extended Release 20 meq PO DAILY Qty: 0 RF: 0 amlodipine 5 mg tablet 5 mg PO DAILY Qty: 90 RF: 3 pantoprazole [Protonix] 40 mg tablet,delayed release (DR/EC) 40 mg PO BID Qty: 0 RF: 0 calcium carbonate [Calcium 600] 600 mg calcium (1,500 mg) tablet 600 mg PO DAILY Qty: 90 RF: 3 calcitriol 0.5 mcg capsule 1.5 mcg PO DAILY Qty: 90 RF: 5 cholecalciferol (vitamin D3) 50 mcg (2,000 unit) capsule 50 mcg PO DAILY Qty: 30 RF: 0 cinacalcet [Sensipar] 30 mg tablet 30 mg PO BID Qty: 60 RF: 2 sucralfate 1 gram tablet 1 g PO QID PRN (Reason: ULCERS) Qty: 120 RF: 1 metoprolol succinate 25 mg tablet extended release 24 hr 25 mg PO DAILY RF: 0 ascorbic acid (vitamin C) 250 mg tablet 250 mg PO DAILY RF: 0 lorazepam 0.5 mg tablet 0.5 mg PO Q8H PRN (Reason: Anxiety) RF: 0 Mucinex DM 30-600 mg Tablet Extended Release 12 Hr 1 tab PO Q12H PRN (Reason: Congestion) RF: 0 nitroglycerin 0.4 mg Tablet, Sublingual 0.4 mg sublingual DIRECTED PRN (Reason: Chest Pain) RF: 0 hydrocortisone [Procto-Med HC] 2.5 % Cream With Perineal Applicator 1 applic CO BID PRN (Reason: irritation) RF: 0 apixaban 2.5 mg tablet 2.5 mg PO BID Qty: 60 RF: 0 mirtazapine 15 mg tablet 15 mg PO HS RF: 0 diclofenac sodium [Voltaren] 1 % Gel 2 g TOPICAL TID RF: 0 melatonin 5 mg Tablet 5 mg PO HS PRN (Reason: Sleep) RF: 0 buspirone 5 mg tablet 5 mg PO TID RF: 0 furosemide 20 mg tablet 20 mg PO 3XWK RF: 0 lisinopril 2.5 mg tablet 2.5 mg PO DAILY RF: 0 [facility]errals [facility] -
[2021-08-11] MEDS ORDERED: ACETAMINOPHEN HOME PACK 500 MG TABLET PO PRN (15:18)
[2021-08-11] MEDS ORDERED: PIPERACILL/TAZOBAC CONSULT ACTIVE PRN (15:18)
[2021-08-11] MEDS ORDERED: ALUMINUM/MAGNESIUM SUSP 30 ML UDC PO PRN (15:18)
[2021-08-11] MEDS ORDERED: ONDANSETRON 8MG OD TAB PO PRN (15:18)
[2021-08-11] MEDS ORDERED: SODIUM CHLORIDE 0.9% 1000ML 1,000 ML IV SCH (15:18)
[2021-08-11] MEDS ORDERED: LORazepam 0.5 MG TAB PO PRN (15:18)
[2021-08-11] MEDS ORDERED: PIPERACILLIN/TAZOBACTAM 4.5 GM in DEXTROSE 5% 100 ML IV SCH (15:18)
[2021-08-11] MEDS ORDERED: POLYETHYLENE (MIRALAX) 17 GM PACK PO PRN (15:18)
[2021-08-11] MEDS: PIPERACILLIN/TAZOBACTAM 3.375 GM in DEXTROSE 5% 100 ML IV SCH ×2 (16:14→23:24)
[2021-08-11] MEDS: busPIRone 5 MG TAB PO SCH ×2 (16:18→21:14)
[2021-08-11] MEDS: FUROSEMIDE 20 MG TAB PO SCH (16:18)
[2021-08-11] MEDS: DICLOFENAC SOD 1% GEL 100 GM TUBE EXT SCH ×2 (16:20→21:16)
[2021-08-11] MEDS: APIXABAN 2.5 MG TAB PO SCH (21:13)
[2021-08-11] MEDS: PANTOprazole 40 MG TAB PO SCH (21:13)
[2021-08-11] MEDS: CINACALCET HCL 30 MG TAB PO SCH (21:14)
[2021-08-11] MEDS: MIRTAZAPINE TAB 15 MG TAB PO SCH (21:15)
[2021-08-12] MEDS: LEVOTHYROXINE SODIUM 75 MCG TABLET PO SCH (05:23)
[2021-08-12] MEDS: PIPERACILLIN/TAZOBACTAM 3.375 GM in DEXTROSE 5% 100 ML IV SCH ×2 (07:36→15:21)
[2021-08-12] MEDS: MULTIVITAMIN CHEWABLE TAB PO SCH (07:42)
[2021-08-12] MEDS: amLODIPine BESYLATE 5 MG TAB PO SCH (07:42)
[2021-08-12] MEDS: lisinopril 2.5 MG TAB PO SCH (07:42)
[2021-08-12] MEDS: CINACALCET HCL 30 MG TAB PO SCH ×2 (07:42→20:41)
[2021-08-12] MEDS: METOPROLOL SUCC 25MG EXT REL TAB PO SCH (07:42)
[2021-08-12] MEDS: predniSONE 5 MG TAB PO SCH (07:42)
[2021-08-12] MEDS: APIXABAN 2.5 MG TAB PO SCH ×2 (07:43→20:40)
[2021-08-12] MEDS: busPIRone 5 MG TAB PO SCH ×3 (07:43→20:41)
[2021-08-12] MEDS: PANTOprazole 40 MG TAB PO SCH ×2 (07:43→20:42)
[2021-08-12] MEDS: DICLOFENAC SOD 1% GEL 100 GM TUBE EXT SCH ×3 (07:44→20:42)
[2021-08-12 08:21] LABS: BUN Creatinine Ratio 22.2 (10-20); Calcium 9.6 mg/dl (8.5-10.1); Creatinine Clr Calc Pharmacy 56.4 ml/min; Est GFR (African American) 90.1 ml/min; Est GFR (Non-African American) 77.7 ml/min; Potassium 3.4 mmol/L (3.5-5.1)
[2021-08-12] MEDS ORDERED: POTASSIUM CHLORIDE CRTAB 20 MEQ TABCR PO STA (09:33)
--- NOTE | 2021-08-12 12:54 | Hospitalist Progress Note ---
Date of Service August 12, 2021 Assessment & Plan (1) Recurrent UTI (urinary tract infection): Plan: Patient presents with concern for metabolic encephalopathy from urinary tract infection present on admission. With a h/o urinary tract infection in September 2020 (also February 2020) UA abnormal, no evidence of sepsis CT A/P with nephrolithiasis without obstruction in tract Patient typically has been on Keflex prior to her last admission where she was in with a TIA. Because of Eliquis being started her Keflex was stopped. Her son is concerned that the stopping of the Keflex is what allowed her urinary tract infection to recur. In the past she has been seen by infectious disease for recurrent drug-resistant organisms. -continue Zosyn -await Ur cx results (2) Acute metabolic encephalopathy: Plan: Secondary to UTI and also possibly some volume depletion an dhypercalcemia contributing Now much improved with tx of UTI, IVF hydration -continue supportive care (3) Persistent atrial fibrillation: Plan: Rate controlled -continue apixaban lower dose 2.5 twice daily due to h/o multiple GI bleeds -continue metoprolol succinate 25 daily keep K+ > 4.0--> give KCl 40meq po x 1 today (4) Chronic heart failure with preserved ejection fraction: Plan: With previously reduced EF which is now improved Was slightly volume depleted on admission and received IVFs continue Toprol XL, lasix three times weekly, lisinopril (5) Anemia: Plan: hgb low at 10-11 chronically, MCV normocytic B12 and folate normal in the last year Fe serum here low but TIBC low continue MVI with Fe likely anemia of chronic disease follow CBC (6) Hyperparathyroidism: Plan: with hypercalcemia on admission now improved with IVFs -continue Calcitriol -continue lasix tiw (7) Chronic steroid use: Plan: Patient on chronic prednisone therapy- will not use stress dosing at this time unless she exhibits clinical signs and symptoms. 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 (9) Hypertension: Plan: controlled BPs -continue metoprolol which she also uses for atrial fibrillation -continue lisinopril and amlodipine (10) Depression with anxiety: Plan: Patient is on BuSpar, mirtazapine- these are continued (11) Coronary artery disease: Plan: s/p CABG no acute issues continue apixiban, lisinopril, TOprol XL No longer on ASA due to multiple GI bleeds and need for Eliquis for Afib and CVA -not on statin-unclear reason (12) Hypothyroid: Plan: TSH normal in 06/2021 continue LT4 (13) Multiple myeloma: Plan: continue prednisone f/u as outpt (14) TIA (transient ischemic attack): Plan: recent in 06/2021 continue on Eliquis (15) DVT prophylaxis: Plan: Patient vicky on Eliquis 2.5 twice daily Dispo-continued stay, needs PT/OT eval but pt desires to return to [facility] rather than rehab Will call son, Juancarlos, with update Admission and Anticipated Discharge Date Admission Date: August 11, 2021 Subjective Pt feeling weak all over and tired but improved from yesterday. No abd pain. No CP or SOB. Is eating breakfast. Review of Systems Review of Systems: All systems reviewed & are unremarkable except as noted in HPI & below Physical Exam Constitutional: WD/WN, vitals as above Eyes: + anicteric sclerae Neck: trachea midline, no thyromegaly Respiratory: normal respiratory effort, lungs clear to auscultation Cardiovascular: Rate/Rhythm: regular rate and + irregularly irregular Extremities: + edema (trace pitting edema legs bilat) Chest (Breasts): Chest: normal inspection of chest Gastrointestinal (Abdomen): normal bowel sounds, soft, nontender, no hepatosplenomegaly Musculoskeletal: Extremities: extremities normal to inspection; no cyanosis and no clubbing Skin: no rashes, warm and dry Neurologic: moves all extremities and awake; no focal motor deficits Psychiatric: Orientation: alert, oriented to person, oriented to place and cooperative Results & Data Results & Data ([facility]) Vital Signs (Past 12 Hours) Vital Signs Temp Pulse Resp BP Pulse Ox 08/12/21 07:30 36.3 C L 91 H 16 132/73 96 Laboratory Results 08/12/21 08/11/21 Range/Units 06:47 12:41 Sodium 137 (136-145) mmol/L Potassium 3.4 L (3.5-5.1) mmol/L Chloride 105 (98-107) mmol/L Carbon Dioxide 24 (21-32) mmol/L Anion Gap 7.0 (3-11) BUN 15 (7-18) mg/dl Creatinine 0.69 (0.6-1.2) mg/dl Est Cr Clr Drug Dosing 56.4 ml/min Est GFR ( Amer) 90.1 ml/min Est GFR (Non-Af Amer) 77.7 ml/min BUN/Creatinine Ratio 22.2 H (10-20) Glucose 85 (70-99) mg/dl Calcium 9.6 D (8.5-10.1) mg/dl Iron 34 L (35-150) mcg/dl TIBC 211 L (250-450) mcg/dl SARS-CoV-2 (PCR) NEGATIVE (Negative) PG Care Time/CCT Total # of Minutes Spent Total Time Spent with Patient: Total time spent is greater than 50% in coordination of care (as documented) at patient's floor/unit and/or counseling patient: Coding Level of Care Code 57075 Subseq Hosp Care Lvl 2 Diagnoses Recurrent UTI (urinary tract infection) N39.0 Persistent atrial fibrillation I48.19 Chronic heart failure with preserved ejection fraction I50.32 Hyperparathyroidism E21.3 Chronic steroid use Hx of deep venous thrombosis Z86.718 Hypertension I10 Depression with anxiety F41.8 DVT prophylaxis Z29.9 Acute metabolic encephalopathy G93.41 Anemia D64.9 Coronary artery disease I25.10 Hypothyroid E03.9 Multiple myeloma C90.01 Multiple myeloma remission status: in remission TIA (transient ischemic attack) G45.9 (1) Multiple myeloma Multiple myeloma remission status: in remission Qualified Code(s): C90.01 - Multiple myeloma in remission
[2021-08-12] MEDS: MIRTAZAPINE TAB 15 MG TAB PO SCH (20:42)
[2021-08-13] MEDS: PIPERACILLIN/TAZOBACTAM 3.375 GM in DEXTROSE 5% 100 ML IV SCH ×2 (00:31→07:42)
[2021-08-13] MEDS: LEVOTHYROXINE SODIUM 75 MCG TABLET PO SCH (06:11)
[2021-08-13 07:21] LABS: Hematocrit (blood only) 32.2 % (37-47); Hemoglobin 10.5 g/dL (12.0-16.0); Mean Corpuscular Hemoglobin 31.3 pg (25-34); Mean Corpuscular Hgb Conc 32.6 g/dL (32-36); Mean Corpuscular Volume 95.8 fL (80-100); Mean Platelet Volume 9.7 fL (7.4-10.4); Platelet Count 263 K/uL (130-400); RDW Coefficient of Variation 14.2 % (11.5-14.5); RDW Standard Deviation 50.4 fL (36.4-46.3); Red Blood Count 3.36 M/uL (4.2-5.4); White Blood Count 5.82 K/uL (4.8-10.8)
[2021-08-13 07:57] LABS: Calcium 8.9 mg/dl (8.5-10.1); Creatinine Clr Calc Pharmacy 51.2 ml/min; Est GFR (African American) 81.2 ml/min; Potassium 3.6 mmol/L (3.5-5.1)
[2021-08-13] MEDS: APIXABAN 2.5 MG TAB PO SCH ×2 (09:15→20:14)
[2021-08-13] MEDS: amLODIPine BESYLATE 5 MG TAB PO SCH (09:15)
[2021-08-13] MEDS: MULTIVITAMIN CHEWABLE TAB PO SCH (09:15)
[2021-08-13] MEDS: predniSONE 5 MG TAB PO SCH (09:15)
[2021-08-13] MEDS: CINACALCET HCL 30 MG TAB PO SCH ×2 (09:15→20:15)
[2021-08-13] MEDS: METOPROLOL SUCC 25MG EXT REL TAB PO SCH (09:15)
[2021-08-13] MEDS: lisinopril 2.5 MG TAB PO SCH (09:15)
[2021-08-13] MEDS: busPIRone 5 MG TAB PO SCH ×3 (09:15→20:14)
[2021-08-13] MEDS: DICLOFENAC SOD 1% GEL 100 GM TUBE EXT SCH ×3 (09:15→20:15)
[2021-08-13] MEDS: FUROSEMIDE 20 MG TAB PO SCH (09:15)
[2021-08-13] MEDS: PANTOprazole 40 MG TAB PO SCH ×2 (09:16→20:16)
[2021-08-13] MEDS ORDERED: POTASSIUM CHLORIDE CRTAB 20 MEQ TABCR PO STA (09:48)
[2021-08-13] MEDS: ACETAMINOPHEN 325 MG TAB PO PRN ×2 (11:29→20:12)
[2021-08-13] MEDS: AMOXICILLIN/CLAVULANATE 875 MG TAB PO SCH (17:55)
[2021-08-13] MEDS: MIRTAZAPINE TAB 15 MG TAB PO SCH (20:16)
--- NOTE | 2021-08-13 21:57 | Hospitalist Progress Note ---
Date of Service August 13, 2021 Assessment & Plan (1) Recurrent UTI (urinary tract infection): Plan: Patient presents with concern for metabolic encephalopathy from urinary tract infection present on admission. With a h/o urinary tract infection in September 2020 (also February 2020) and previously was on daily cephalexin for prevention as per infectious disease re commendation Keflex was discontinued during her last admission for CVA due to a possible interaction with Eliquis to cause increased bleeding UA abnormal, no evidence of sepsis CT A/P with nephrolithiasis without obstruction in tract Urine culture now growing pansensitive E. coli Blood cultures remain no growth to date She is much improved clinically, but remains fairly deconditioned which was ongoing since prior to this admission over the last few weeks as per staff at her [facility] -Discontinue Zosyn and convert to Augmentin to complete a 7-day course -Continue to follow blood cultures -Consider restarting UTI prophylaxis as an outpatient with caution given history of multiple GI bleeds and possible interaction between Eliquis and cephalexin causing increased risk of bleeding-discussed this with the patient's son on the phone-would defer to PCP to start prophylaxis in the future if desired or if continues to have recurrent UTIs off of her usual prophylaxis (2) Acute metabolic encephalopathy: Plan: Secondary to UTI and also possibly some volume depletion and hypercalcemia contributing Now much improved with tx of UTI, IVF hydration -continue supportive care (3) Persistent atrial fibrillation: Plan: Rate controlled -continue apixaban lower dose 2.5 twice daily due to h/o multiple GI bleeds -continue metoprolol succinate 25 daily keep K+ > 4.0--> give KCl 20meq po x 1 today -Follow CBC closely given history of GI bleeds and is now back on Eliquis (4) Chronic heart failure with preserved ejection fraction: Plan: With previously reduced EF which is now improved Was slightly volume depleted on admission and received IVFs continue Toprol XL, lasix three times weekly, lisinopril (5) Anemia: Plan: hgb low at 10-11 chronically, MCV normocytic B12 and folate normal in the last year Fe serum here low but TIBC low continue MVI with Fe likely anemia of chronic disease follow CBC (6) Hyperparathyroidism: Plan: with hypercalcemia on admission now improved with IVFs -continue Calcitriol -continue lasix tiw (7) Chronic steroid use: Plan: Patient on chronic prednisone therapy- will not use stress dosing at this time unless she exhibits clinical signs and symptoms. Assuming this is for history of multiple myeloma Continue Protonix 40 mg p.o. 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 Alyse filter was placed in 2006 Now also on apixaban as above (9) Hypertension: Plan: controlled BPs -continue metoprolol which she also uses for atrial fibrillation -continue lisinopril and amlodipine (10) Depression with anxiety: Plan: Patient is on BuSpar, mirtazapine- these are continued (11) Coronary artery disease: Plan: s/p CABG no acute issues continue apixiban, lisinopril, TOprol XL No longer on ASA due to multiple GI bleeds and need for Eliquis for Afib and CVA -not on statin-unclear reason (12) Hypothyroid: Plan: TSH normal in 06/2021 continue LT4 (13) Multiple myeloma: Plan: continue prednisone f/u as outpt (14) TIA (transient ischemic attack): Plan: recent in 06/2021 continue on Eliquis (15) DVT prophylaxis: Plan: Eliquis 2.5 twice daily Dispo-medically stable for discharge, PT/OT evaluations reviewed by her personal half-way and recommending SNF placement-awaiting placement through case management Discussed her care with her son, Juancarlos, on the phone (16) Shoulder pain, bilateral: Plan: Has chronic bilateral shoulder pain, follows with Dr. Diego of [facility] orthopedics Recently had steroid injections in bilateral shoulders and 06/2021 Has some acute worsening of her left shoulder pain causing her to have difficulty abducting her left shoulder -Change Voltaren gel to be applied to shoulders as well Continue Tylenol and will make scheduled on discharge to rehab to control pain Admission and Anticipated Discharge Date Admission Date: August 11, 2021 Anticipated date of discharge: 08/14/21 Subjective Patient feels very tired and weak but overall improved since admission. Nursing reports that she did still have some confusion overnight but nothing severe. Patient denies any chest pain or shortness of breath, no abdominal pain. She continues to have bilateral shoulder pain which is chronic for her. She is having more pain than usual in the left shoulder and is having difficulty raising her left arm in abduction more than 30 degrees due to pain-she thinks maybe she slept on it wrong. She is eating and drinking, and moved her bowels yesterday and today. Review of Systems Review of Systems: All systems reviewed & are unremarkable except as noted in HPI & below Physical Exam Constitutional: WD/WN, vitals as above Eyes: + anicteric sclerae Neck: trachea midline, no thyromegaly Respiratory: normal respiratory effort, lungs clear to auscultation Cardiovascular: Rate/Rhythm: regular rate and + irregularly irregular Extremities: + edema (trace pitting edema legs bilat) Chest (Breasts): Chest: normal inspection of chest Gastrointestinal (Abdomen): normal bowel sounds, soft, nontender, no hepatosplenomegaly Musculoskeletal: Extremities: extremities normal to inspection; no cyanosis and no clubbing Skin: no rashes, warm and dry Neurologic: moves all extremities and awake; no focal motor deficits Psychiatric: Orientation: alert, oriented to person, oriented to place and cooperative Lymphatic: no lymphedema Results & Data Results & Data ([facility]) Laboratory Results 08/13/21 06:56 08/13/21 06:56 Urine culture-E. coli, pansensitive and Gardnerella-like bacteria Blood cultures-no growth to date PG Care Time/CCT Total # of Minutes Spent Total Time Spent with Patient: Total time spent is greater than 50% in coordination of care (as documented) at patient's floor/unit and/or counseling patient: Coding Level of Care Code 23300 Subseq Hosp Care Lvl 2 Diagnoses Recurrent UTI (urinary tract infection) N39.0 Acute metabolic encephalopathy G93.41 Persistent atrial fibrillation I48.19 Chronic heart failure with preserved ejection fraction I50.32 Anemia D64.9 Hyperparathyroidism E21.3 Chronic steroid use Hx of deep venous thrombosis Z86.718 Hypertension I10 Depression with anxiety F41.8 Coronary artery disease I25.10 Hypothyroid E03.9 Multiple myeloma C90.01 Multiple myeloma remission status: in remission TIA (transient ischemic attack) G45.9 DVT prophylaxis Z29.9 Shoulder pain, bilateral M25.511; M25.512 (1) Multiple myeloma Multiple myeloma remission status: in remission Qualified Code(s): C90.01 - Multiple myeloma in remission
[2021-08-14] MEDS: LEVOTHYROXINE SODIUM 75 MCG TABLET PO SCH (06:12)
[2021-08-14] MEDS: PANTOprazole 40 MG TAB PO SCH ×2 (07:25→19:57)
[2021-08-14 08:43] LABS: Basophils # (auto) 0.04 K/uL (0-0.2); Basophils % (auto) 0.7 %; Eosinophils # (auto) 0.27 K/uL (0-0.5); Eosinophils % (auto) 4.8 %; Hematocrit (blood only) 32.5 % (37-47); Hemoglobin 10.3 g/dL (12.0-16.0); Immature Granulocytes # (auto) 0.05 K/uL (0.00-0.02); Immature Granulocytes % (auto) 0.9 %; Lymphocytes # (auto) 1.29 K/uL (1.2-3.4); Mean Corpuscular Hgb Conc 31.7 g/dL (32-36); Mean Corpuscular Volume 97.9 fL (80-100); Monocytes # (auto) 0.65 K/uL (0.11-0.59); Monocytes % (auto) 11.6 %; Neutrophils # (auto) 3.31 K/uL (1.4-6.5); Platelet Count 268 K/uL (130-400); RDW Coefficient of Variation 14.2 % (11.5-14.5); RDW Standard Deviation 50.8 fL (36.4-46.3); Red Blood Count 3.32 M/uL (4.2-5.4); White Blood Count 5.61 K/uL (4.8-10.8)
[2021-08-14] MEDS: lisinopril 2.5 MG TAB PO SCH (09:02)
[2021-08-14] MEDS: APIXABAN 2.5 MG TAB PO SCH ×2 (09:02→19:58)
[2021-08-14] MEDS: busPIRone 5 MG TAB PO SCH ×3 (09:02→19:57)
[2021-08-14] MEDS: amLODIPine BESYLATE 5 MG TAB PO SCH (09:02)
[2021-08-14] MEDS: CINACALCET HCL 30 MG TAB PO SCH ×2 (09:02→19:57)
[2021-08-14] MEDS: AMOXICILLIN/CLAVULANATE 875 MG TAB PO SCH ×2 (09:02→16:39)
[2021-08-14] MEDS: predniSONE 5 MG TAB PO SCH (09:02)
[2021-08-14] MEDS: METOPROLOL SUCC 25MG EXT REL TAB PO SCH (09:02)
[2021-08-14] MEDS: DICLOFENAC SOD 1% GEL 100 GM TUBE EXT SCH ×3 (09:03→19:58)
[2021-08-14] MEDS: MULTIVITAMIN CHEWABLE TAB PO SCH (09:03)
[2021-08-14 09:17] LABS: BUN Creatinine Ratio 25.6 (10-20); Calcium 8.5 mg/dl (8.5-10.1); Creatinine Clr Calc Pharmacy 46.3 ml/min; Est GFR (African American) 71.9 ml/min; Est GFR (Non-African American) 62.1 ml/min; Magnesium 1.9 mg/dl (1.8-2.4); Potassium 3.6 mmol/L (3.5-5.1)
[2021-08-14] MEDS: ACETAMINOPHEN 325 MG TAB PO PRN (14:06)
--- NOTE | 2021-08-14 17:07 | Hospitalist Progress Note ---
Date of Service August 14, 2021 Assessment & Plan (1) Recurrent UTI (urinary tract infection): Plan: Patient presents with concern for metabolic encephalopathy from urinary tract infection present on admission. With a h/o urinary tract infection in September 2020 (also February 2020) and previously was on daily cephalexin for prevention as per infectious disease recommendation Keflex was discontinued during her last admission for CVA due to a possible interaction with Eliquis to cause increased bleeding UA abnormal, no evidence of sepsis CT A/P with nephrolithiasis without obstruction in tract Urine culture growing pansensitive E. coli Blood cultures remain no growth to date She is much improved clinically, but remains fairly deconditioned which was ongoing since prior to this admission over the last few weeks as per staff at her personal fdc -Discontinued Zosyn and converted to Augmentin to complete a 7-day course-last dose will be 08/18 -Continue to follow blood cultures -Consider restarting UTI prophylaxis as an outpatient with caution given history of multiple GI bleeds and possible interaction between Eliquis and cephalexin causing increased risk of bleeding-discussed this with the patient's son on the phone-would defer to PCP to start prophylaxis in the future if desired or if continues to have recurrent UTIs off of her usual prophylaxis (2) Acute metabolic encephalopathy: Plan: Secondary to UTI and also possibly some volume depletion and hypercalcemia contributing Now much improved with tx of UTI, IVF hydration -continue supportive care (3) Persistent atrial fibrillation: Plan: Rate controlled -continue apixaban lower dose 2.5 twice daily due to h/o multiple GI bleeds -continue metoprolol succinate 25 daily -Follow CBC closely given history of GI bleeds and is now back on Eliquis (4) Chronic heart failure with preserved ejection fraction: Plan: With previously reduced EF which is now improved Was slightly volume depleted on admission and received IVFs continue Toprol XL, lasix three times weekly, lisinopril (5) Anemia: Plan: hgb low at 10-11 chronically, MCV normocytic B12 and folate normal in the last year Fe serum here low but TIBC low continue MVI with Fe likely anemia of chronic disease follow CBC as outpt (6) Hyperparathyroidism: Plan: with hypercalcemia on admission now improved with IVFs -continue Calcitriol -continue lasix tiw (7) Chronic steroid use: Plan: Patient on chronic prednisone therapy- will not use stress dosing at this time unless she exhibits clinical signs and symptoms. Assuming this is for history of multiple myeloma Continue Protonix 40 mg p.o. 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 Alyse filter was placed in 2006 Now also on apixaban as above (9) Hypertension: Plan: controlled BPs -continue metoprolol which she also uses for atrial fibrillation -continue lisinopril and amlodipine (10) Depression with anxiety: Plan: Patient is on BuSpar, mirtazapine- these are continued (11) Coronary artery disease: Plan: s/p CABG no acute issues continue apixiban, lisinopril, TOprol XL No longer on ASA due to multiple GI bleeds and need for Eliquis for Afib and CVA -not on statin-unclear reason (12) Hypothyroid: Plan: TSH normal in 06/2021 continue LT4 (13) Multiple myeloma: Plan: continue prednisone f/u as outpt (14) TIA (transient ischemic attack): Plan: recent in 06/2021 continue on Eliquis (15) Shoulder pain, bilateral: Plan: Has chronic bilateral shoulder pain, follows with Dr. Diego of [facility] orthopedics Recently had steroid injections in bilateral shoulders and 06/2021 Has some acute worsening of her left shoulder pain causing her to have difficulty abducting her left shoulder -continue Voltaren gel to be applied to shoulders as well Continue Tylenol and will make scheduled on discharge (16) DVT prophylaxis: Plan: Eliquis 2.5 twice daily Dispo-medically stable for discharge, PT/OT evaluations reviewed by her personal fdc and recommending SNF placement-Insurance denied SNF on 08/14. e learning manager made several calls to her [facility] today and had no response until late in the day when they said they could not handle bringing her back this late in the day. Patient will stay again overnight and dc to home tomorrow Discussed her care with her son, Juancarlos, on the phone Admission and Anticipated Discharge Date Admission Date: August 11, 2021 Subjective Pt still feels very weak, still with pain in L>R shoulders, but otherwise doing ok. Inusrance denied SNF and patient happy about this as she wants to go back to her [facility]. Review of Systems Review of Systems: All systems reviewed & are unremarkable except as noted in HPI & below Physical Exam Constitutional: WD/WN, vitals as above Eyes: + anicteric sclerae Neck: trachea midline, no thyromegaly Respiratory: normal respiratory effort, lungs clear to auscultation Cardiovascular: Rate/Rhythm: regular rate and + irregularly irregular Extremities: + edema (trace pitting edema legs bilat) Chest (Breasts): Chest: normal inspection of chest Gastrointestinal (Abdomen): normal bowel sounds, soft, nontender, no hepatosplenomegaly Musculoskeletal: Extremities: extremities normal to inspection; no cyanosis and no clubbing Skin: no rashes, warm and dry Neurologic: moves all extremities and awake; no focal motor deficits Psychiatric: Orientation: alert, oriented to person, oriented to place and cooperative Results & Data Results & Data ([place]) Vital Signs (Past 12 Hours) Vital Signs Temp Pulse Resp BP Pulse Ox 08/14/21 15:59 36.9 C 69 16 110/55 L 94 08/14/21 08:05 36.5 C 84 16 164/83 H 96 Laboratory Results 08/14/21 08/14/21 Range/Units 08:11 08:11 WBC 5.61 (4.8-10.8) K/uL RBC 3.32 L (4.2-5.4) M/uL Hgb 10.3 L (12.0-16.0) g/dL Hct 32.5 L (37-47) % MCV 97.9 (80-100) fL MCH 31.0 (25-34) pg MCHC 31.7 L (32-36) g/dL RDW Std Deviation 50.8 H (36.4-46.3) fL RDW Coeff of [place] 14.2 (11.5-14.5) % Plt Count 268 (130-400) K/uL MPV 10.0 (7.4-10.4) fL Immature Gran % (Auto) 0.9 % Neut % (Auto) 59.0 % Lymph % (Auto) 23.0 % [place] % (Auto) 11.6 % Eos % (Auto) 4.8 % Baso % (Auto) 0.7 % Neut # (Auto) 3.31 (1.4-6.5) K/uL Lymph # (Auto) 1.29 (1.2-3.4) K/uL [place] # (Auto) 0.65 H (0.11-0.59) K/uL Eos # (Auto) 0.27 (0-0.5) K/uL Baso # (Auto) 0.04 (0-0.2) K/uL Immature Gran # (Auto) 0.05 H (0.00-0.02) K/uL Sodium 139 (136-145) mmol/L Potassium 3.6 (3.5-5.1) mmol/L Chloride 108 H (98-107) mmol/L Carbon Dioxide 25 (21-32) mmol/L Anion Gap 7.0 (3-11) BUN 21 H (7-18) mg/dl Creatinine 0.84 (0.6-1.2) mg/dl Est Cr Clr Drug Dosing 46.3 ml/min Est GFR ( Amer) 71.9 ml/min Est GFR (Non-Af Amer) 62.1 ml/min BUN/Creatinine Ratio 25.6 H (10-20) Glucose 88 (70-99) mg/dl Calcium 8.5 (8.5-10.1) mg/dl Magnesium 1.9 (1.8-2.4) mg/dl PG Care Time/CCT Total # of Minutes Spent Total Time Spent with Patient: Total time spent is greater than 50% in coordination of care (as documented) at patient's floor/unit and/or counseling patient: Coding Level of Care Code 58451 Subseq Hosp Care Lvl 1 Diagnoses Recurrent UTI (urinary tract infection) N39.0 Acute metabolic encephalopathy G93.41 Persistent atrial fibrillation I48.19 Chronic heart failure with preserved ejection fraction I50.32 Anemia D64.9 Hyperparathyroidism E21.3 Chronic steroid use Hx of deep venous thrombosis Z86.718 Hypertension I10 Depression with anxiety F41.8 Coronary artery disease I25.10 Hypothyroid E03.9 Multiple myeloma C90.01 Multiple myeloma remission status: in remission TIA (transient ischemic attack) G45.9 DVT prophylaxis Z29.9 Shoulder pain, bilateral M25.511; M25.512 (1) Multiple myeloma Multiple myeloma remission status: in remission Qualified Code(s): C90.01 - Multiple myeloma in remission
[2021-08-14] MEDS: MIRTAZAPINE TAB 15 MG TAB PO SCH (19:57)
[2021-08-15] MEDS: LEVOTHYROXINE SODIUM 75 MCG TABLET PO SCH (05:51)
[2021-08-15 08:22] VITALS: PULSE 90; TEMP 97.3; O2SAT 92
[2021-08-15] MEDS: DICLOFENAC SOD 1% GEL 100 GM TUBE EXT SCH (09:16)
[2021-08-15] MEDS: AMOXICILLIN/CLAVULANATE 875 MG TAB PO SCH (09:16)
[2021-08-15] MEDS: APIXABAN 2.5 MG TAB PO SCH (09:17)
[2021-08-15] MEDS: amLODIPine BESYLATE 5 MG TAB PO SCH (09:17)
[2021-08-15] MEDS: busPIRone 5 MG TAB PO SCH (09:17)
[2021-08-15] MEDS: MULTIVITAMIN CHEWABLE TAB PO SCH (09:18)
[2021-08-15] MEDS: predniSONE 5 MG TAB PO SCH (09:18)
[2021-08-15] MEDS: FUROSEMIDE 20 MG TAB PO SCH (09:18)
[2021-08-15] MEDS: CINACALCET HCL 30 MG TAB PO SCH (09:18)
[2021-08-15] MEDS: PANTOprazole 40 MG TAB PO SCH (09:18)
[2021-08-15] MEDS: METOPROLOL SUCC 25MG EXT REL TAB PO SCH (09:18)
[2021-08-15] MEDS: lisinopril 2.5 MG TAB PO SCH (09:18)
[2021-08-15 10:25] VITALS: BP 110/55
--- NOTE | 2021-08-15 11:02 | Discharge Summary ---
Date of Service August 15, 2021 Admission HPI Per Admitting Provider This patient presents with concern for metabolic encephalopathy from urinary tract infection. She has history of both Pseudomonas and Enterococcus in the past although they were with relatively little resistance. She reportedly had some confusion at [facility] she has some urinary frequency and dysuria. She recently is been having intermittent bouts of loose bowel movements. Patient also carries a diagnosis of hyperparathyroidism and on intake her calcium is 11.6 which is elevated. Patient has no other signs or symptoms of complaints. Her for intermittent diarrhea constipation is a longstanding problem for her. She is slightly confused in the ER but relatively intact she is alert and oriented x3 although it takes her some time to answer questions. Principal Diagnosis UTI, Acute metabolic encephalopathy Discharge Exam Constitutional WD/WN, vitals as above Eyes + anicteric sclerae ENMT external ear and nose normal, oropharynx normal Neck trachea midline, no thyromegaly Respiratory normal respiratory effort, lungs clear to auscultation Cardiovascular Rate/Rhythm: regular rate and + irregularly irregular Extremities: + edema (trace pitting edema legs bilat) Chest (Breasts) Chest: normal inspection of chest Gastrointestinal (Abdomen) normal bowel sounds, soft, nontender, no hepatosplenomegaly Musculoskeletal Extremities: extremities normal to inspection; no cyanosis and no clubbing Skin no rashes, warm and dry Neurologic moves all extremities and awake; no focal motor deficits Psychiatric A+Ox3, euthymic affect Orientation: cooperative Discharge Data Allergies Allergy/AdvReac Type Severity Reaction Status Date / Time aspartame Allergy Mild HEADACHES, Verified 07/19/21 14:02 N/V shellfish derived Allergy Mild HEADACHE Verified 07/19/21 14:02 AND N/V Cipro Allergy Unknown ELEVATED Verified 09/20/17 17:44 BLOOD PRESSURE ciprofloxacin Allergy Unknown ELEVATED Verified 07/19/21 14:02 BLOOD PRESSURE Iodinated Contrast Media Allergy Unknown R/T Verified 07/19/21 14:02 SHELLFISH ALLERGY nitrofurantoin Allergy Unknown NAUSEA,ABDOMINAL Verified 07/19/21 14:02 PAIN Quinolones Allergy Unknown CIPRO - Verified 07/19/21 14:02 ELEVATED BLOOD PRESSURE Sulfa (Sulfonamide Allergy Unknown UNKNOWN - Verified 07/19/21 14:02 Antibiotics) PT STATES DOES NOT REMEMBER Consultations 08/11/21 13:38 ED Decision to Admit Stat Ordered Studies 08/11/21 09:10 CT abd pelvis wo con Stat Abdomen/Pelvis CT 08/11/21 09:10 CT SCAN OF THE ABDOMEN AND PELVIS WITHOUT CONTRAST CLINICAL HISTORY: UTI COMPARISON STUDY: September 16, 2017 TECHNIQUE: CT scan of the abdomen and pelvis was performed from the lung bases to the proximal femurs. Images are reviewed in the axial, sagittal, and coronal planes. IV contrast was not administered for this examination. A dose lowering technique was utilized adhering to the principles of ALARA. CT DOSE: 942.73 mGycm FINDINGS: Lower chest: Redemonstration of the few areas of scarring and bronchiectasis, unchanged since prior. Evaluation of upper abdomen and lower chest is limited due to beam hardening artifact from overlying patient's arms. Liver: The unenhanced liver is normal in size, contour, and attenuation. There is no intrahepatic biliary ductal dilatation. Gallbladder: Is fluid-filled without evidence of gallstones or pericholecystic inflammation. Spleen: Is normal in size with few parenchymal calcifications. Pancreas: Is atrophic Adrenal glands: Left adrenal gland is poorly seen. Right adrenal gland is normal. Kidneys: The unenhanced kidneys are normal in size without hydronephrosis. N onobstructive nephrolithiasis is seen bilaterally. Largest calculus is measuring 4 mm in size and is seen on the right. 1.5 cm hypoattenuating lesion is seen within right kidney and most likely representing cyst. Bowel: Large hiatal hernia is seen, enlarged since prior. Bowel loops are nondilated. Appendix is not well seen. Moderate stool burden is seen within colonic loops. Diverticulosis of sigmoid colon is seen without evidence of diverticulitis. Peritoneum: There is no intraperitoneal free air or abdominal ascites. Vasculature: Abdominal aorta is tortuous with extensive calcifications within its wall. IVC filter is noted superior aspect of the filter appear to be outside of IVC lumen, findings are unchanged since prior. Adenopathy: Few small retroperitoneal lymph nodes are seen, measuring less than 1 cm in short axis, nonpathological by CT size criteria. Pelvic viscera: Urinary bladder is collapsed which limits evaluation. Mild diffuse thickening of urinary bladder wall is seen with mild surrounding fat stranding which could be seen in cystitis. Overall evaluation of the pelvic region is limited due to beam hardening artifact from left hip orthopedic hardware. Uterus is not well seen, could be surgically absent. Skeletal structures: Lumbar dextroscoliosis is seen and associated with severe multilevel degenerative changes of the spine. Compression fracture deformity of the T12 is again seen, unchanged since prior. Severe diffuse osteopenia. IMPRESSION: 1. Decompressed urinary bladder with diffuse thickening of its wall and mild surrounding fat stranding which could be seen in cystitis. 2. Interval enlargement of hiatal hernia. 3. Bilateral nonobstructive nephrolithiasis. Cystic lesion within right kidney, suboptimal evaluation due to lack of IV contrast. 4. Nondilated loops of bowel. Diverticulosis of sigmoid colon without evidence of diverticulitis. 5. Atherosclerosis. 6. IVC filter is in unchanged position. 7. Osteopenia and stable compression fracture deformity of T12. 8. The rest of findings as above. ACT 112: Negative or not required by law. The above report was generated using voice recognition software. It may contain grammatical, syntax or spelling errors. Electronically signed by: Marsha Nickerson DO 08/11/2021 10:03 AM Hospital Course (1) Recurrent UTI (urinary tract infection): Patient presents with concern for metabolic encephalopathy from urinary tract infection present on admission. With a h/o urinary tract infection in September 2020 (also February 2020) and previously was on daily cephalexin for prevention as per infectious disease recommendation Keflex was discontinued during her last admission for CVA due to a possible interaction with Eliquis to cause increased bleeding UA abnormal, no evidence of sepsis CT A/P with nephrolithiasis without obstruction in tract Urine culture growing pansensitive E. coli Blood cultures remain no growth to date She is much improved clinically, but remains fairly deconditioned which was ongoing since prior to this admission over the last few weeks as per staff at her personal long term -Discontinued Zosyn and converted to Augmentin to complete a 7-day course-last dose will be 08/18 -Continue to follow blood cultures- NGTD -Consider restarting UTI prophylaxis as an outpatient with caution given history of multiple GI bleeds and possible interaction between Eliquis and cephalexin causing increased risk of bleeding-discussed this with the patient's son on the phone-would defer to PCP to start prophylaxis in the future if desired or if continues to have recurrent UTIs off of her usual prophylaxis (2) Acute metabolic encephalopathy: Secondary to UTI and also possibly some volume depletion and hypercalcemia contributing Now much improved with tx of UTI, IVF hydration -continue supportive care (3) Persistent atrial fibrillation: Rate controlled -continue apixaban lower dose 2.5 twice daily due to h/o multiple GI bleeds -continue metoprolol succinate 25 daily -Follow CBC closely given history of GI bleeds and is now back on Eliquis (4) Chronic heart failure with preserved ejection fraction: With previously reduced EF which is now improved Was slightly volume depleted on admission and received IVFs continue Toprol XL, lasix three times weekly, lisinopril (5) Anemia: hgb low at 10-11 chronically, MCV normocytic B12 and folate normal in the last year Fe serum here low but TIBC low continue FeSO4 likely anemia of chronic disease follow CBC as outpt (6) Hyperparathyroidism: with hypercalcemia on admission now improved with IVFs -continue Calcitriol -continue lasix tiw (7) Chronic steroid use: Patient on chronic prednisone therapy- will not use stress dosing at this time unless she exhibits clinical signs and symptoms. Assuming this is for history of multiple myeloma Continue Protonix 40 mg p.o. twice daily given history of GI bleeds and on chronic steroids (8) Hx of deep venous thrombosis: Patient has an IVC filter seen on CT scan patient's had multiple DVTs the [place] filter was placed in 2006 Now also on apixaban as above (9) Hypertension: controlled BPs -continue metoprolol which she also uses for atrial fibrillation -continue lisinopril and amlodipine (10) Depression with anxiety: Patient is on BuSpar, mirtazapine- these are continued (11) Coronary artery disease: s/p CABG no acute issues continue apixiban, lisinopril, TOprol XL No longer on ASA due to multiple GI bleeds and need for Eliquis for Afib and CVA -not on statin-unclear reason (12) Hypothyroid: TSH normal in 06/2021 continue LT4 (13) Multiple myeloma: continue prednisone f/u as outpt (14) TIA (transient ischemic attack): recent in 06/2021 continue on Eliquis (15) Shoulder pain, bilateral: Has chronic bilateral shoulder pain, follows with Dr. Diego of [facility] orthopedics Recently had steroid injections in bilateral shoulders and 06/2021 Has some acute worsening of her left shoulder pain causing her to have difficulty abducting her left shoulder -continue Voltaren gel to be applied to shoulders as well Continue Tylenol and will make scheduled on discharge (16) DVT prophylaxis: Eliquis 2.5 twice daily Dispo-medically stable for discharge, PT/OT evaluations reviewed by her personal long term and recommending SNF placement-Insurance denied SNF on 08/14. Dc to personal care today Total Time Total Time Spent Total Time Spent (In Minutes): 35 min Discharge Plan Discharge Items Patient Disposition: [facility] Reason For Visit: METABOLIC ENCEPHALOPATHY Discharge Diagnosis: UTI, Acute metabolic encephalopathy Condition on Discharge: Fair Activity: As commented below Lifting: Gradually increase as tolerated Bathing: No limitations Exercise/Sports: Gradually increase as tolerated Weightbearing: Full weightbearing Non-emergency contact: Primary Care Provider Call non-emergency contact if: you have any medication questions, your symptoms worsen and you have a fever Follow-up/Referrals: Jadon Villator[facility]DOCUSYS [facility], [place] [Primary Care Provider] - (Follow up within 1-2 weeks.) Don Post MD [Physician] - (Please schedule an appointment to follow up on your shoulder pain with Orthopedics.) Diet: Heart Healthy Addtl Attending Provider Instructions: You were admitted with a UTI and confusion which is now resolved. Finish out the course of antibiotics for your UTI as prescribed. You continue to have generalized weakness from deconditioning and should continue with physical and occupational therapy. Please follow up with Orthopedic Surgery as needed for your shoulder pain. Please follow up with your PCP within 1-2 days. Pending Studies at Discharge: Yes (Final blood cultures-no growth to date) Stand-Alone Forms: My [facility] Skilled Items Patient informed of condition?: Yes DNR: Yes Discharge Level of Care: Other Communicable Disease: No Discharge Prognosis: Improving Lines: None Urinary Catheter: No Medications and DC Order Prescriptions: New amoxicillin-pot clavulanate [Augmentin] 875-125 mg Tablet 1 tab PO BIDM Qty: 7 RF: 0 Continued ferrous sulfate 325 mg (65 mg iron) tablet 325 mg PO BID RF: 0 polyethylene glycol 3350 [Miralax] 17 gram Powder In Packet 17 g PO DAILY PRN (Reason: Constipation) Qty: 0 RF: 0 prednisone 5 mg Tablet 5 mg PO DAILY Qty: 0 RF: 0 cyanocobalamin (vitamin B-12) [Vitamin B-12] 1,000 mcg Tablet 1,000 mcg PO DAILY Qty: 0 RF: 0 glucosamine sulfate [Glucosamine] 500 mg Tablet 1,000 mg PO DAILY Qty: 0 RF: 0 ondansetron 8 mg Tablet,Disintegrating 8 mg PO TID PRN (Reason: n/v) Qty: 0 RF: 0 levothyroxine 75 mcg Tablet 75 mcg PO DAILY Qty: 0 RF: 0 potassium chloride 20 mEq Tablet Extended Release 20 meq PO DAILY Qty: 0 RF: 0 amlodipine 5 mg tablet 5 mg PO DAILY Qty: 90 RF: 3 pantoprazole [Protonix] 40 mg tablet,delayed release (DR/EC) 40 mg PO BID Qty: 0 RF: 0 calcium carbonate [Calcium 600] 600 mg calcium (1,500 mg) tablet 600 mg PO DAILY Qty: 90 RF: 3 calcitriol 0.5 mcg capsule 1.5 mcg PO DAILY Qty: 90 RF: 5 cholecalciferol (vitamin D3) 50 mcg (2,000 unit) capsule 50 mcg PO DAILY Qty: 30 RF: 0 cinacalcet [Sensipar] 30 mg tablet 30 mg PO BID Qty: 60 RF: 2 sucralfate 1 gram tablet 1 g PO QID PRN (Reason: ULCERS) Qty: 120 RF: 1 metoprolol succinate 25 mg tablet extended release 24 hr 25 mg PO DAILY RF: 0 ascorbic acid (vitamin C) 250 mg tablet 250 mg PO DAILY RF: 0 lorazepam 0.5 mg tablet 0.5 mg PO Q8H PRN (Reason: Anxiety) RF: 0 Mucinex DM 30-600 mg Tablet Extended Release 12 Hr 1 tab PO Q12H PRN (Reason: Congestion) RF: 0 nitroglycerin 0.4 mg Tablet, Sublingual 0.4 mg sublingual DIRECTED PRN (Reason: Chest Pain) RF: 0 hydrocortisone [Procto-Med HC] 2.5 % Cream With Perineal Applicator 1 applic MO BID PRN (Reason: irritation) RF: 0 apixaban 2.5 mg tablet 2.5 mg PO BID Qty: 60 RF: 0 mirtazapine 15 mg tablet 15 mg PO HS RF: 0 diclofenac sodium [Voltaren] 1 % Gel 2 g TOPICAL TID RF: 0 melatonin 5 mg Tablet 5 mg PO HS PRN (Reason: Sleep) RF: 0 buspirone 5 mg tablet 5 mg PO TID RF: 0 furosemide 20 mg tablet 20 mg PO 3XWK RF: 0 lisinopril 2.5 mg tablet 2.5 mg PO DAILY RF: 0 Changed acetaminophen 500 mg Tablet 1,000 mg PO Q8 Qty: 180 RF: 0 Discharge Orders: Discharge Order (Routine); Ordered 08/15/21 Ordered By: Rebekah Stokes/Other Patient Handouts: Understanding Urinary Tract ... Admission Data Admit Date/Time: 08/11/21 12:55 Attending Provider: Rebekah Spann Admit Provider: Oneil Delaney [facility] Other Providers: Oneil Delaney ; Pito Flowers at [place] Other Interventions: Discharge Summary Assessment (RN) Last Done: 08/15/21 10:19 Coding Level of Care Code D/C DAY MANAGEMENT >30 MINS Diagnoses Recurrent UTI (urinary tract infection) N39.0 Acute metabolic encephalopathy G93.41 Persistent atrial fibrillation I48.19 Chronic heart failure with preserved ejection fraction I50.32 Anemia D64.9 Hyperparathyroidism E21.3 Chronic steroid use Hx of deep venous thrombosis Z86.718 Hypertension I10 Depression with anxiety F41.8 Coronary artery disease I25.10 Hypothyroid E03.9 Multiple myeloma C90.01 Multiple myeloma remission status: in remission TIA (transient ischemic attack) G45.9 Shoulder pain, bilateral M25.511; M25.512 DVT prophylaxis Z29.9
== END 2021-08-15 11:21 | disposition home or self-care (01) ==
LOC: ED 08:50 → 3N 12:55 → INTOOBSV 12:55 → 3N 14:50

== ENCOUNTER 2021-08-29 09:35 | Inpatient (IN) ==
--- NOTE | 2021-08-29 10:31 | Emergency Department Note ---
Impression & Plan Acute UTI, Hypercalcemia, Dehydration ED Provider Note NAME: CHATO BONILLA AGE: 86 SEX: F ARRIVES VIA: Ambulance INFORMANT: patient ED PROVIDER(S): Randolph William MD CHIEF COMPLAINT: Weakness, UTI PLAN: Disposition: Admit MEDICAL DECISION MAKING: The patient is a pleasant 86-year-old woman with a past medical history of recurrent chronic UTIs on daily abx ppx who presents to the emergency department accompanied by her son with dysuria and malaise. Recently hospitalized from 08/11-08/15 for acute metabolic encephalopathy 2/2 UTI, dehydration with hypercalcemia in the setting of hyperparathyroidism, discharged back to [facility] and resumed daily Keflex ppx. Mental status has improved since then but continuing to experience dysuria and general malaise, decreased PO tolerance, nausea with few episodes of emesis. Currently denying chest pain, dyspnea, abdominal pain, fevers. On arrival the patient is fatigued appearing but no acute distress, afebrile stable vital signs. She appears clinically dry. EKG without overt acute ischemia. WBC and platelets within normal limits. H/H similar to prior range of values. Chemistry without metabolic acidosis. Calcium 11.7 similar to prior elevation on last admission. LFTs without significant normality. UA is suspicious for infection with 1+ bacteria, WBCs and leukoesterase. COVID-19 PCR was negative. Review of the patient's recent cultures does show pansensitive E. coli. However she does have a history of Pseudomonas in the past as well as Enterobacter in 2 019. Given prior cultures empiric treatment initiated with cefepime in the emergency department for now. I did speak at length with the patient and her son at the bedside. The patient continued to express concern anxiety over her weakness and ability to go back to her personal [facility] at this time. Thus, we agreed to proceed with admission for further management in the setting of her hypercalcemia, dehydration and UTI. Case was discussed with MELISSA Anaya with MELISSA Castaneda hospitalist. This patient was managed with the assistance of resident, Dr. Kwong. I discussed the case with the resident, examined the patient, and confirm the findings and plan as documented in this note. Triage Nursing notes reviewed and agree them. prior medical records reviewed Vital Signs: reviewed and remarkable for no significant abnormalities Differential diagnosis: Infection, dehydration, metabolic abnormality, hypo/hyperglycemia, electrolyte disturbance, anemia, hypoxia, cardiac sources, intracerebral event, toxicologic, neurologic, as well as other pathologies. ER treatment provided: See below. Diagnostics interpreted by me: ECG: Atrial fibrillation, 97 bpm, no ectopy, nonspecific ST abnormality, no overt ST elevation. Cardiac Monitoring: An order for continuous cardiac monitoring was placed and demonstrated atrial fibrillation, 97 bpm, no ectopy. Laboratory studies: See below Imaging studies: see below Consultation(s): Terry Cantu [facility] OSCAR with Dr. Spann, [facility] hospitalist. HPI: The patient is a pleasant 86-year-old woman with a past medical history of recurrent chronic UTIs on daily abx ppx who presents to the emergency department accompanied by her son with dysuria and malaise. Recently hospitalized from 08/11-08/15 for acute metabolic encephalopathy 2/2 UTI, dehydration with hypercalcemia in the setting of hyperparathyroidism, discharged back to [facility] and resumed daily Keflex ppx. Mental status has improved since then but continuing to experience dysuria and general malaise, decreased PO tolerance, nausea with few episodes of emesis. Currently denying chest pain, dyspnea, abdominal pain, fevers. ROS: See above HPI for pertinent positives & negatives. A total of 10 systems reviewed and were otherwise negative. PAST MEDICAL HISTORY: see Below PAST SURGICAL HISTORY:See Below FAMILY HISTORY:See Below SOCIAL HISTORY: see Below HOME MEDICATIONS: See Below ALLERGIES: see Below VITALS: See Below PHYSICAL EXAMINATION: GENERAL: Awake, alert, fatigued-appearing, in no distress HENT: Normocephalic, atraumatic. Oropharynx with dry mucous membranes and otherwise unremarkable. EYES: Normal conjunctiva. Sclera non-icteric. NECK: Supple. No nuchal rigidity. FROM. No JVD. RESPIRATORY: Clear to auscultation. CARDIAC: Regular rate, normal rhythm. Extremities warm and well perfused. Pulses equal. ABDOMEN: Soft, non-distended. No tenderness to palpation. No rebound or guarding. No masses. RECTAL: Deferred. MUSCULOSKELETAL: Chest examination reveals no tenderness. The back is symmetrical on inspection without obvious abnormality. There is no CVA tenderness to palpation. No joint edema. LOWER EXTREMITIES: Calves are equal size bilaterally and non-tender. No edema. No discoloration. NEURO: No focal sensory or motor deficits noted. 4/5 strength x 4 ext. SKIN: No rash or jaundice noted. Randolph William MD Past Med/Surg History Medical History Acute GI bleeding (2016) Acute hip pain Adenocarcinoma of rectum (2016) "Diarrhea and rectal bleeding Status post colonoscopy and biopsy 02/09/2017 showing high-grade dysplasia suspicious for adenocarcinoma Status post transrectal resection 02/15/2017 Stage pT2 [id number] Plan for combined radiation and chemotherapy, chemotherapy comprised of Xeloda Status post completion of radiation therapy 05/17/2017. She received 5040 cGy. Dosage of Xeloda was adjusted due to side effect of diarrhea" Anxiety Arthritis Atrial fibrillation with RVR Blood dyscrasia Cancer Chronic steroid use Chronic systolic heart failure Constipation Coronary artery disease DVT (deep venous thrombosis) Electrolyte abnormality Fatigue Gastric ulcer (2014) Gastrointestinal disorder GI bleed [place] filter in place High cholesterol History of GI bleed History of parathyroid disease Hx of deep venous thrombosis Hypertension Multiple myeloma Osteoporosis Pneumonia (09/2019) Shoulder pain, bilateral Thrombophlebitis Thyroid disease Urinary tract infection Surgical History History of appendectomy History of bilateral salpingo-oophorectomy History of left hip hemiarthroplasty History of rectal surgery S/P CABG (coronary artery bypass graft) (2006) S/P hysterectomy S/P IVC filter Family History Other Coronary heart disease Heart failure Denies family history of Ovarian cancer Prostate cancer Myocardial infarction Breast cancer Colorectal cancer Social History Smoking Status: Never smoker Second Hand Exposure: No; Hx Alcohol Use: No Hx Substance Use: No Preferred Language: Ukrainian Communication Ability: Effective Visual Impairment: Partially Limited Hearing Ability: Hard of Hearing Loans Consultant Required: No Beliefs That Will Affect Care: None marital status: Current Living Situation: [facility] Current Living Situation Comment: [facility] current occupational status: retired 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 [employer] How many Children do You have: 3 Other Information That Helps Us Care for You: No Feels Safe at Home: Yes Safety Concerns: Feels Safe At This Time Childhood Exposure to Second-Hand Smoke: No during the past year weight has: remained stable Dental Care, Regularly: Yes Physical Activity Frequency: Does not Exercise Seatbelt Use: always Sunscreen Use: Yes Assistive Devices: Denture - Upper, Glasses, Walker and Wheelchair Allergies Allergies Allergy/AdvReac Type Severity Reaction Status Date / Time aspartame Allergy Mild HEADACHES, Verified 08/29/21 13:23 N/V shellfish derived Allergy Mild HEADACHE Verified 08/29/21 13:23 AND N/V Cipro Allergy Unknown ELEVATED Verified 09/20/17 17:44 BLOOD PRESSURE ciprofloxacin Allergy Unknown ELEVATED Verified 08/29/21 13:23 BLOOD PRESSURE Iodinated Contrast Media Allergy Unknown R/T Verified 08/29/21 13:23 SHELLFISH ALLERGY nitrofurantoin Allergy Unknown NAUSEA,ABDOMINAL Verified 08/29/21 13:23 PAIN Quinolones Allergy Unknown CIPRO - Verified 08/29/21 13:23 ELEVATED BLOOD PRESSURE Sulfa (Sulfonamide Allergy Unknown UNKNOWN - Verified 08/29/21 13:23 Antibiotics) PT STATES DOES NOT REMEMBER Home Meds Home Medications Medication Instructions Recorded Confirmed cyanocobalamin (vitamin B-12) 1,000 mcg PO DAILY #0 09/13/17 08/29/21 1,000 mcg tablet (Vitamin B-12) glucosamine sulfate 500 mg tablet 1,000 mg PO DAILY #0 09/13/17 08/29/21 (Glucosamine) levothyroxine 75 mcg tablet 75 mcg PO DAILYBB #0 09/13/17 08/29/21 (Synthroid) ondansetron 8 mg disintegrating 8 mg PO TID PRN #0 tab 09/13/17 08/29/21 tablet polyethylene glycol 3350 17 gram 17 g PO DAILY PRN #0 09/13/17 08/29/21 oral powder packet (Miralax) prednisone 5 mg tablet 5 mg PO QAM #0 tab 09/13/17 08/29/21 potassium chloride 20 mEq 20 meq PO DAILY #0 tab 05/14/18 08/29/21 tablet,extended release (K-Tab) ferrous sulfate 325 mg (65 mg 325 mg PO BID 03/08/19 08/29/21 iron) tablet (Iron (ferrous sulfate)) metoprolol succinate 25 mg 25 mg PO DAILY 07/27/19 08/29/21 tablet,extended release 24 hr (Toprol XL) lorazepam 0.5 mg tablet (Ativan) 0.5 mg PO Q8H PRN 08/23/19 08/29/21 ascorbic acid (vitamin C) 250 mg 250 mg PO DAILY 10/10/19 08/29/21 tablet (Vitamin C) dextromethorphan-guaifenesin 30 1 tab PO Q12H PRN 10/20/19 08/29/21 mg-600 mg tablet extended hr (Mucinex DM) hydrocortisone 2.5 % topical cream 1 applic TX BID PRN 10/20/19 08/29/21 with perineal applicator (Procto-Med HC) nitroglycerin 0.4 mg sublingual 0.4 mg SUBLINGUAL DIRECTED PRN 10/20/19 08/29/21 tablet (Nitrostat) pantoprazole 40 mg tablet,delayed 40 mg PO BID #0 tab 04/18/20 08/29/21 release (Protonix) furosemide 20 mg tablet (Lasix) 20 mg PO 3XWK 08/11/21 08/29/21 lisinopril 2.5 mg tablet (Zestril) 2.5 mg PO DAILY 08/11/21 08/29/21 melatonin 5 mg tablet 5 mg PO HS PRN 08/11/21 08/29/21 cephalexin 500 mg tablet 500 mg PO BID 08/21/21 08/29/21 mirtazapine 15 mg tablet (Remeron) 7.5 mg PO HS tab 08/21/21 08/29/21 acetaminophen 500 mg tablet 500 mg PO QAM 08/29/21 08/29/21 (Acetaminophen Extra Strength) amlodipine 5 mg tablet (Norvasc) 5 mg PO DAILY 08/29/21 08/29/21 apixaban 2.5 mg tablet (Eliquis) 2.5 mg PO BID 08/29/21 08/29/21 buspirone 15 mg tablet 7.5 mg PO TID 08/29/21 08/29/21 calcitriol 0.5 mcg capsule 1.5 mcg PO DAILY 08/29/21 08/29/21 (Rocaltrol) calcium carbonate 600 mg calcium 600 mg PO QDD 08/29/21 08/29/21 (1,500 mg) tablet (Calcium) camphor 11 %-menthol 16 % topical 1 applic TOPICAL UD 08/29/21 08/29/21 cream (Icy Hot Advanced Relief) cranberry fruit concentrate 250 mg 250 mg PO BID 08/29/21 08/29/21 chewable tablet (Azo Cranberry) lidocaine 5 % topical patch 1 patch TOPICAL DAILY 08/29/21 08/29/21 (Lidoderm) sucralfate 1 gram tablet (Carafate) 1 g PO QID PRN 08/29/21 08/29/21 Previous Rx's Medication Instructions Recorded cinacalcet 30 mg tablet (Sensipar) 30 mg PO BID #60 tab 05/19/21 Results & Data (ED) Vital Signs Vital Signs - 24 hr 08/29/21 09:40 08/29/21 10:34 08/29/21 11:00 Temperature 36.8 C Temperature Source Oral Pulse Rate 90 Pulse Rate [Finger] 79 Pulse Rhythm Irregular Pulse Rhythm [Finger] Regular Pulse Strength Normal Pulse Strength [Finger] Normal Respiratory Rate 22 22 Respiratory Effort / Characteristics Non-Labored Spontaneous Non-Labored Respiratory Depth Normal Normal Respiratory Pattern Regular Blood Pressure 155/73 H Blood Pressure [Right Arm] 154/73 H Blood Pressure Mean 100 Blood Pressure Mean [Right Arm] 100 Blood Pressure Position Sitting Blood Pressure Position [Right Arm] Lying Pulse Oximetry 97 97 99 Oxygen Delivery Method Room Air Room Air Room Air Sepsis Recent Fever Within 48 Hours Yes Sepsis New/Unexplained Change in Mental Status No Sepsis Action Taken by Nursing No Action Required 08/29/21 13:00 Temperature Temperature Source Pulse Rate Pulse Rate [Finger] 78 Pulse Rhythm Pulse Rhythm [Finger] Regular Pulse Strength Pulse Strength [Finger] Normal Respiratory Rate 16 Respiratory Effort / Characteristics Non-Labored Respiratory Depth Normal Respiratory Pattern Blood Pressure Blood Pressure [Right Arm] 145/57 H Blood Pressure Mean Blood Pressure Mean [Right Arm] 86 Blood Pressure Position Blood Pressure Position [Right Arm] Lying Pulse Oximetry 96 Oxygen Delivery Method Room Air Sepsis Recent Fever Within 48 Hours Sepsis New/Unexplained Change in Mental Status Sepsis Action Taken by Nursing Laboratory Data Attestation: I reviewed the patient's lab results. Result diagrams: 08/29/21 09:56 08/29/21 09:56 Lab Results 08/29/21 08/29/21 08/29/21 Range/Units 09:56 09:56 10:05 WBC 8.89 (4.8-10.8) K/uL RBC 3.56 L (4.2-5.4) M/uL Hgb 11.0 L (12.0-16.0) g/dL Hct 33.5 L (37-47) % MCV 94.1 (80-100) fL MCH 30.9 (25-34) pg MCHC 32.8 (32-36) g/dL RDW Std Deviation 48.8 H (36.4-46.3) fL RDW Coeff of [place] 14.1 (11.5-14.5) % Plt Count 318 (130-400) K/uL MPV 10.5 H (7.4-10.4) fL Immature Gran % (Auto) 0.6 % Neut % (Auto) 71.9 % Lymph % (Auto) 15.4 % [place] % (Auto) 9.7 % Eos % (Auto) 2.2 % Baso % (Auto) 0.2 % Neut # (Auto) 6.39 (1.4-6.5) K/uL Lymph # (Auto) 1.37 (1.2-3.4) K/uL [place] # (Auto) 0.86 H (0.11-0.59) K/uL Eos # (Auto) 0.20 (0-0.5) K/uL Baso # (Auto) 0.02 (0-0.2) K/uL Immature Gran # (Auto) 0.05 H (0.00-0.02) K/uL Sodium 140 (136-145) mmol/L Potassium 4.2 (3.5-5.1) mmol/L Chloride 108 H (98-107) mmol/L Carbon Dioxide 28 (21-32) mmol/L Anion Gap 4.0 (3-11) BUN 18 (7-18) mg/dl Creatinine 0.91 (0.6-1.2) mg/dl Est Cr Clr Drug Dosing 43.9 ml/min Est GFR ( Amer) 65.3 ml/min Est GFR (Non-Af Amer) 56.3 ml/min BUN/Creatinine Ratio 20.0 (10-20) Glucose 89 (70-99) mg/dl Lactate (0.4-2.0) mmol/L Calcium 11.7 H (8.5-10.1) mg/dl Total Bilirubin 0.5 (0.2-1) mg/dl AST 18 (15-37) U/L ALT 16 (12-78) U/L Alkaline Phosphatase 42 L (45-117) U/L Total Protein 7.1 (6.4-8.2) gm/dl Albumin 3.4 (3.4-5.0) gm/dl Globulin 3.7 (2.5-4.0) gm/dl Albumin/Globulin Ratio 0.9 (0.9-2) Specimen Hemolysis Urine Color Yellow Urine Appearance Turbid A (Clear) Urine pH 5.5 (4.5-7.5) Ur Specific [place] 1.017 (1.000-1.030) Urine Protein 2+ H (Negative) Urine Glucose (UA) Negative (Negative) Urine Ketones Negative (Negative) Urine Blood 3+ H (Negative) Urine Nitrite Negative (Negative) Urine Bilirubin Negative (Negative) Urine Urobilinogen Negative (Negative) Ur Leukocyte Esterase 3+ H (Negative) Urine WBC (Auto) >30 H (0-5) /hpf Urine RBC (Auto) 10-30 H (0-4) /hpf U Hyaline Cast (Auto) 1-5 (0-5) /lpf U Epithel Cells (Auto) 5-10 H (0-5) /lpf Urine Bacteria (Auto) 1+ H (Negative) Urine Yeast Not Reportable COVID-19 Eval Order SARS-CoV-2 (PCR) (Negative) 08/29/21 08/29/21 08/29/21 Range/Units 11:04 11:23 11:23 WBC (4.8-10.8) K/uL RBC (4.2-5.4) M/uL Hgb (12.0-16.0) g/dL Hct (37-47) % MCV (80-100) fL MCH (25-34) pg MCHC (32-36) g/dL RDW Std Deviation (36.4-46.3) fL RDW Coeff of [place] (11.5-14.5) % Plt Count (130-400) K/uL MPV (7.4-10.4) fL Immature Gran % (Auto) % Neut % (Auto) % Lymph % (Auto) % [place] % (Auto) % Eos % (Auto) % Baso % (Auto) % Neut # (Auto) (1.4-6.5) K/uL Lymph # (Auto) (1.2-3.4) K/uL [place] # (Auto) (0.11-0.59) K/uL Eos # (Auto) (0-0.5) K/uL Baso # (Auto) (0-0.2) K/uL Immature Gran # (Auto) (0.00-0.02) K/uL Sodium (136-145) mmol/L Potassium (3.5-5.1) mmol/L Chloride (98-107) mmol/L Carbon Dioxide (21-32) mmol/L Anion Gap (3-11) BUN (7-18) mg/dl Creatinine (0.6-1.2) mg/dl Est Cr Clr Drug Dosing ml/min Est GFR ( Amer) ml/min Est GFR (Non-Af Amer) ml/min BUN/Creatinine Ratio (10-20) Glucose (70-99) mg/dl Lactate 1.1 (0.4-2.0) mmol/L Calcium (8.5-10.1) mg/dl Total Bilirubin (0.2-1) mg/dl AST (15-37) U/L ALT (12-78) U/L Alkaline Phosphatase (45-117) U/L Total Protein (6.4-8.2) gm/dl Albumin (3.4-5.0) gm/dl Globulin (2.5-4.0) gm/dl Albumin/Globulin Ratio (0.9-2) Specimen Hemolysis Urine Color Urine Appearance (Clear) Urine pH (4.5-7.5) Ur Specific [place] (1.000-1.030) Urine Protein (Negative) Urine Glucose (UA) (Negative) Urine Ketones (Negative) Urine Blood (Negative) Urine Nitrite (Negative) Urine Bilirubin (Negative) Urine Urobilinogen (Negative) Ur Leukocyte Esterase (Negative) Urine WBC (Auto) (0-5) /hpf Urine RBC (Auto) (0-4) /hpf U Hyaline Cast (Auto) (0-5) /lpf U Epithel Cells (Auto) (0-5) /lpf Urine Bacteria (Auto) (Negative) Urine Yeast COVID-19 Eval Order Covid19 at [facility] SARS-CoV-2 (PCR) NEGATIVE (Negative) Administered Medications Furosemide (Furosemide 20 Mg Tab) 20 mg PO MoWeFr@0900 [facility] Stop: 09/28/21 15:02 Last Admin: 08/29/21 15:46 Dose: 20 mg Documented by: [id number] Parenteral Electrolytes (Normosol-R) 1,000 mls @ 75 mls/hr IV .[id number] ONE Stop: 08/30/21 02:49 Last Admin: 08/29/21 15:32 Dose: 75 mls/hr Documented by: [id number] Lidocaine (Lidocaine 5% 1 Patch) 1 patch TD DAILY TERESA Stop: 09/28/21 15:14 Last Admin: 08/29/21 15:46 Dose: Not Given Documented by: [id number] Discontinued Medications Sodium Chloride (Nss 1000ml) 1,000 mls @ 999 mls/hr IV .[id number] STA Stop: 08/29/21 11:32 Last Infusion: 08/29/21 11:30 Dose: 0 mls/hr Documented by: [id number] Admin: 08/29/21 10:52 Dose: 999 mls/hr Documented by: [id number] Cefepime HCl (Maxipime) 20 mls @ 5 mls/min IV TODAY@1032 [facility]; Protocol Stop: 08/29/21 12:30 Last Admin: 08/29/21 12:35 Dose: 5 mls/min Documented by: [id number] Ondansetron HCl (Ondansetron Inj 2 Mg/Ml 2 Ml Vial) 4 mg IV NOW STA Stop: 08/29/21 10:33 Last Admin: 08/29/21 10:51 Dose: 4 mg Documented by: [id number] Imaging Data Radiologist's Impression: KUB X-Ray 08/29/21 13:24 KUB CLINICAL HISTORY: evaluate for any bladder/renal stones COMPARISON STUDY: CT of the abdomen and pelvis August 11, 2021. FINDINGS: IVC filter and left hip arthroplasty are incidentally noted. Bowel gas pattern is normal. A 3 mm right renal calculus is noted. No ureteral calculi identified although sensitivity is diminished given stool and vascular calcifications. IMPRESSION: 1. 3 mm right renal calculus. 2. No ureteral calculi identified although sensitivity diminished given overlying stool. ACT 112: Negative or not required by law. Electronically signed by: Francis Cuenca M.D. 08/29/2021 5:25 PM Discharge Plan Visit Data Chief Complaint: Illness ED Provider: Randolph William ED Midlevel Provider: Jw Sy Discharge Problem: Acute UTI, Hypercalcemia, Dehydration Patient Disposition: Admitted As Inpatient Discharge Instructions Interventions: ED Discharge Assessment Last Done: 08/29/21 14:19
[2021-08-29] MEDS ORDERED: SODIUM CHLORIDE 0.9% 1000ML 1,000 ML IV STA (10:32)
[2021-08-29] MEDS ORDERED: ONDANSETRON INJ 2 MG/ML 2 ML VIAL IV STA (10:32)
[2021-08-29] MEDS ORDERED: CEFEPIME 20 ML IV SCH (10:32)
[2021-08-29] MEDS ORDERED: CEFEPIME 2,000 MG in SYRINGE 0 ML IV STA (10:32)
[2021-08-29 10:43] LABS: Basophils # (auto) 0.02 K/uL (0-0.2); Basophils % (auto) 0.2 %; Eosinophils % (auto) 2.2 %; Hematocrit (blood only) 33.5 % (37-47); Immature Granulocytes # (auto) 0.05 K/uL (0.00-0.02); Immature Granulocytes % (auto) 0.6 %; Lymphocytes # (auto) 1.37 K/uL (1.2-3.4); Lymphocytes % (auto) 15.4 %; Mean Corpuscular Hemoglobin 30.9 pg (25-34); Mean Corpuscular Hgb Conc 32.8 g/dL (32-36); Mean Corpuscular Volume 94.1 fL (80-100); Mean Platelet Volume 10.5 fL (7.4-10.4); Monocytes # (auto) 0.86 K/uL (0.11-0.59); Monocytes % (auto) 9.7 %; Neutrophils # (auto) 6.39 K/uL (1.4-6.5); Neutrophils % (auto) 71.9 %; Platelet Count 318 K/uL (130-400); RDW Coefficient of Variation 14.1 % (11.5-14.5); RDW Standard Deviation 48.8 fL (36.4-46.3); Red Blood Count 3.56 M/uL (4.2-5.4); White Blood Count 8.89 K/uL (4.8-10.8)
[2021-08-29 10:45] LABS: Appearance Urine Turbid (Clear); Bilirubin Urine Negative (Negative); Blood Urine 3+ (Negative); Color Urine Yellow; Glucose Urine UA Negative (Negative); Ketones Urine Negative (Negative); Leukocyte Esterase Urine 3+ (Negative); Nitrite Urine Negative (Negative); Protein Urine 2+ (Negative); Specific Gravity Urine 1.017 (1.000-1.030); Urobilinogen Urine Negative (Negative); WBC Urine Automated >30 /hpf (0-5); pH Urine 5.5 (4.5-7.5)
[2021-08-29 10:58] LABS: Albumin Globulin Ratio 0.9 (0.9-2); Albumin Level 3.4 gm/dl (3.4-5.0); Bilirubin,Total 0.5 mg/dl (0.2-1); Calcium 11.7 mg/dl (8.5-10.1); Creatinine Clr Calc Pharmacy 43.9 ml/min; Est GFR (African American) 65.3 ml/min; Est GFR (Non-African American) 56.3 ml/min; Globulin 3.7 gm/dl (2.5-4.0); Potassium 4.2 mmol/L (3.5-5.1); Total Protein 7.1 gm/dl (6.4-8.2)
[2021-08-29 11:06] LABS: Bacteria Urine Automated 1+ (Negative)
[2021-08-29] MEDS ORDERED: NORMOSOL-R 1,000 ML IV ONE (13:30)
--- NOTE | 2021-08-29 14:03 | History & Physical Report ---
Date of Service August 29, 2021 Assessment & Plan (1) Recurrent UTI (urinary tract infection): Plan: As per HPI - Continue Cefepime await Urine Culture - pending culture results- may need to discuss with ID or Urology in regards to chronic prophylaxis therapy (2) Hyperparathyroidism: Plan: Chronic- Calcium level mild- likely related to low intravascular volume - check ionized calcium - no need for aggressive therapy - Normosol at 75 ml/ hour - follows with endocrinology - continue calcitriol 1.5 mcg daily - Hold calcium carbonate- would recommend discontinue (3) Hypertension: Plan: Continue metoprolol, lisinopril, lasix, amlodopine (4) Coronary artery disease: Plan: As above - BP control lipid control (5) Anemia: Plan: Stable- continue pantoprazole (6) Multiple myeloma: Plan: Continue prednisone (7) S/P IVC filter: Plan: Placed in 2006 for multiple DVT and GI bleeds (8) Shoulder pain, bilateral: Plan: Follows with orthopaedics - reports not tolerating the Voltaren gel well - will attempt lidocaine patches (9) Hypothyroidism: Plan: Continue Synthroid 75mcg daily History of Present Illness Primary Care Provider: [facility] 86 YOF with past medical history of: 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 Patient comes to the emergency room today for complaints of increase in fatigue, dysuria, and increase in urinary frequency that has gotten worse over the past week. She states she just feels like a lump and sleeps more than normal. She has been trying to drink water, but with her increase in fequency she feels as though she can't maintain her intake. She denies any fevers, chills, back pain, but does endorse dysuria. The patient was recently admitted in August 12 for UTI and feels as if she just hasn't recovered at that time. The patient was discharged with Augmentin that finished on . The patient had previously been on Keflex prophylaxis via ID through 2019- secondary to her history of GI bleeds and apixaban usage the Keflex was stopped through multidisciplinary discussion with cardiology and IM. The culture from that UA was pansensitive E.coli and Gardnerella-like bacilli. UTIs in 2019 grew pseudomonas. She was started on Cefepime in the EMD. Patient also had routine lab draws and urine sent. Patient had routine labs drawn- that revealed normal WBC, normal HGB/HCT. Her Calcium was mildly elevated to 11.7- she received 1Liter of normal saline in the EMD. Will continue with maintaining Euvolemia and follow her calcium levels. Ionized calcium is pending. Her UA is 1+bacteria, RBC 10-30, with 3+ blood, +LE, Nitrites Negative- 1+ bacteria. Will obtain KUB evaluate for any renal or bladder stones with her hypercalcemia and blood. Patient has received her COVID vaccine and her COVID test on admission is: NEGATIVE. Allergies Allergy/AdvReac Type Severity Reaction Status Date / Time aspartame Allergy Mild HEADACHES, Verified 08/29/21 13:23 N/V shellfish derived Allergy Mild HEADACHE Verified 08/29/21 13:23 AND N/V Cipro Allergy Unknown ELEVATED Verified 09/20/17 17:44 BLOOD PRESSURE ciprofloxacin Allergy Unknown ELEVATED Verified 08/29/21 13:23 BLOOD PRESSURE Iodinated Contrast Media Allergy Unknown R/T Verified 08/29/21 13:23 SHELLFISH ALLERGY nitrofurantoin Allergy Unknown NAUSEA,ABDOMINAL Verified 08/29/21 13:23 PAIN Quinolones Allergy Unknown CIPRO - Verified 08/29/21 13:23 ELEVATED BLOOD PRESSURE Sulfa (Sulfonamide Allergy Unknown UNKNOWN - Verified 08/29/21 13:23 Antibiotics) PT STATES DOES NOT REMEMBER Home Medications Medication Instructions Recorded Confirmed Type cyanocobalamin (vitamin B-12) 1,000 mcg PO DAILY #0 09/13/17 08/29/21 History 1,000 mcg tablet (Vitamin B-12) glucosamine sulfate 500 mg tablet 1,000 mg PO DAILY #0 09/13/17 08/29/21 History (Glucosamine) levothyroxine 75 mcg tablet 75 mcg PO DAILYBB #0 09/13/17 08/29/21 History (Synthroid) ondansetron 8 mg disintegrating 8 mg PO TID PRN #0 tab 09/13/17 08/29/21 History tablet polyethylene glycol 3350 17 gram 17 g PO DAILY PRN #0 10/23/17 10/08/21 History oral powder packet (Miralax) prednisone 5 mg tablet 5 mg PO QAM #0 tab 09/13/17 08/29/21 History potassium chloride 20 mEq 20 meq PO DAILY #0 tab 05/14/18 08/29/21 History tablet,extended release (K-Tab) ferrous sulfate 325 mg (65 mg 325 mg PO BID 03/08/19 08/29/21 History iron) tablet (Iron (ferrous sulfate)) metoprolol succinate 25 mg 25 mg PO DAILY 07/27/19 08/29/21 History tablet,extended release 24 hr (Toprol XL) lorazepam 0.5 mg tablet (Ativan) 0.5 mg PO Q8H PRN 08/23/19 08/29/21 History ascorbic acid (vitamin C) 250 mg 250 mg PO DAILY 10/10/19 08/29/21 History tablet (Vitamin C) dextromethorphan-guaifenesin 30 1 tab PO Q12H PRN 10/20/19 08/29/21 History mg-600 mg tablet extended hr (Mucinex DM) hydrocortisone 2.5 % topical cream 1 applic ND BID PRN 10/20/19 08/29/21 History with perineal applicator (Procto-Med HC) nitroglycerin 0.4 mg sublingual 0.4 mg SUBLINGUAL DIRECTED PRN 10/20/19 History tablet (Nitrostat) pantoprazole 40 mg tablet,delayed 40 mg PO BID #0 tab 04/18/20 08/29/21 History release (Protonix) cinacalcet 30 mg tablet (Sensipar) 30 mg PO BID #60 tab 05/19/21 08/29/21 Rx furosemide 20 mg tablet (Lasix) 20 mg PO 3XWK 08/11/21 08/29/21 History lisinopril 2.5 mg tablet (Zestril) 2.5 mg PO DAILY 08/11/21 08/29/21 History melatonin 5 mg tablet 5 mg PO HS PRN 08/11/21 08/29/21 History cephalexin 500 mg tablet 500 mg PO BID 08/21/21 08/29/21 History mirtazapine 15 mg tablet (Remeron) 7.5 mg PO HS tab 08/21/21 08/29/21 History acetaminophen 500 mg tablet 500 mg PO QAM 08/29/21 08/29/21 History (Acetaminophen Extra Strength) amlodipine 5 mg tablet (Norvasc) 5 mg PO DAILY 08/29/21 08/29/21 History apixaban 2.5 mg tablet (Eliquis) 2.5 mg PO BID 08/29/21 08/29/21 History buspirone 15 mg tablet 7.5 mg PO TID 08/29/21 08/29/21 History calcitriol 0.5 mcg capsule 1.5 mcg PO DAILY 08/29/21 08/29/21 History (Rocaltrol) calcium carbonate 600 mg calcium 600 mg PO QDD 08/29/21 08/29/21 History (1,500 mg) tablet (Calcium) camphor 11 %-menthol 16 % topical 1 applic TOPICAL UD 08/29/21 08/29/21 History cream (Icy Hot Advanced Relief) cranberry fruit concentrate 250 mg 250 mg PO BID 08/29/21 08/29/21 History chewable tablet (Azo Cranberry) lidocaine 5 % topical patch 1 patch TOPICAL DAILY 08/29/21 08/29/21 History (Lidoderm) sucralfate 1 gram tablet (Carafate) 1 g PO QID PRN 08/29/21 08/29/21 History Past Med/Surg History Medical History Acute GI bleeding (2016) Acute hip pain Adenocarcinoma of rectum (2017) "Diarrhea and rectal bleeding Status post colonoscopy and biopsy 02/09/2017 showing high-grade dysplasia suspicious for adenocarcinoma Status post transrectal resection 02/15/2017 Stage pT2 [id number] Plan for combined radiation and chemotherapy, chemotherapy comprised of Xeloda Status post completion of radiation therapy 05/17/2017. She received 5040 cGy. Dosage of Xeloda was adjusted due to side effect of diarrhea" Anxiety Arthritis Atrial fibrillation with RVR Blood dyscrasia Cancer Chronic steroid use Chronic systolic heart failure Constipation Coronary artery disease DVT (deep venous thrombosis) Electrolyte abnormality Fatigue Gastric ulcer (2014) Gastrointestinal disorder GI bleed [place] filter in place High cholesterol History of GI bleed History of parathyroid disease Hx of deep venous thrombosis Hypertension Multiple myeloma Osteoporosis Pneumonia (09/2019) Shoulder pain, bilateral Thrombophlebitis Thyroid disease Urinary tract infection Surgical History History of appendectomy History of bilateral salpingo-oophorectomy History of left hip hemiarthroplasty History of rectal surgery S/P CABG (coronary artery bypass graft) (2006) S/P hysterectomy S/P IVC filter Family History Other Coronary heart disease Heart failure Denies family history of Ovarian cancer Prostate cancer Myocardial infarction Breast cancer Colorectal cancer Social History Smoking Status: Never smoker Second Hand Exposure: No; Hx Alcohol Use: No Hx Substance Use: No Preferred Language: Portuguese Communication Ability: Effective Visual Impairment: Partially Limited Hearing Ability: Hard of Hearing 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 Beliefs That Will Affect Care: None marital status: Current Living Situation: Alf Current Living Situation Comment: Massimo Diop current occupational status: retired 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 How many Children do You have: 3 Other Information That Helps Us Care for You: No Feels Safe at Home: Yes Safety Concerns: Feels Safe At This Time Childhood Exposure to Second-Hand Smoke: No during the past year weight has: remained stable Dental Care, Regularly: Yes Physical Activity Frequency: Does not Exercise Seatbelt Use: always Sunscreen Use: Yes Assistive Devices: Denture - Upper, Glasses, Walker and Wheelchair Review of Systems Review of Systems: REVIEW OF SYSTEMS: Constitutional: (+) fatigue, No fever, sweats or chills Eyes: No diplopia, no worsening or blurred vision ENT: normal hearing, no trouble swallowing Respiratory: No cough, sputum, dyspnea at rest or on exertion Cardiovascular: No chest pain, tightness or palpitations Abdomen: (+) dysuria, frequency, No pain, nausea, vomiting, diarrhea or constipation Musculoskeletal:(+) right toe pain, No joint pain, calf pain, swelling Neurologic: No weakness, numbness/tingling, or balance problems Psychiatric: No anxiety or depression Skin: No rash or itch Physical Exam Physical Exam: PHYSICAL EXAM: General: awake, alert, no apparent distress Head: Normocephalic, atraumatic ENT: PERRL, EOMI, no pharyngeal exudate, mucous membranes moist Neuro: AAO x 3, speech clear and appropriate, strength intact bilaterally 5/5, sensation intact and equal all extremities and dermatomes, no pronator drift Chest: equal rise and fall of the chest, no accessory muscle use, no heaves or thrills, Clear to auscultation, on room air, Cardiac: irregular rate and rhythm, telemetry reviewed- afib controlled, skin warm dry, cap refill <3 seconds, peripheral pulses +2 no JVD, no murmur, no edema GI: NABS x 4 quadrants, soft, nontender to palpation, no rebound, guarding or tenderness : Spontaneously voiding, dysuria, no CVA tenderness, Extremities: Normal inspection, no peripheral edema or erythema, calfs nontender to palpation Psych: Normal mood and affect Skin: no rash or erythema MSK: ecchymosis to right great toe and right 2nd toe, full ROM - stubbed at care home Results & Data Results & Data ([facility]) Vital Signs (Past 12 Hours) Vital Signs Temp Pulse Pulse Resp BP BP Pulse Ox 08/29/21 11:00 79 22 154/73 H 99 08/29/21 10:34 97 08/29/21 09:40 36.8 C 90 22 155/73 H 97 Laboratory Results Abnormal lab results 08/29/21 08/29/21 08/29/21 Range/Units 09:56 09:56 10:05 RBC 3.56 L (4.2-5.4) M/uL Hgb 11.0 L (12.0-16.0) g/dL Hct 33.5 L (37-47) % RDW Std Deviation 48.8 H (36.4-46.3) fL MPV 10.5 H (7.4-10.4) fL [place] # (Auto) 0.86 H (0.11-0.59) K/uL Immature Gran # (Auto) 0.05 H (0.00-0.02) K/uL Chloride 108 H (98-107) mmol/L Calcium 11.7 H (8.5-10.1) mg/dl Alkaline Phosphatase 42 L (45-117) U/L Urine Appearance Turbid A (Clear) Urine Protein 2+ H (Negative) Urine Blood 3+ H (Negative) Ur Leukocyte Esterase 3+ H (Negative) Urine WBC (Auto) >30 H (0-5) /hpf Urine RBC (Auto) 10-30 H (0-4) /hpf U Epithel Cells (Auto) 5-10 H (0-5) /lpf Urine Bacteria (Auto) 1+ H (Negative) Diagnostic Findings KUB pending Medications Administered Home Medications cyanocobalamin (vitamin B-12) 1,000 mcg tablet (Vitamin B-12) 1,000 mcg PO DAILY #0 09/13/17 [History Confirmed 08/21/21] glucosamine sulfate 500 mg tablet (Glucosamine) 1,000 mg PO DAILY #0 09/13/17 [History Confirmed 08/21/21] levothyroxine 75 mcg tablet 75 mcg PO DAILY #0 09/13/17 [History Confirmed 08/21/21] ondansetron 8 mg disintegrating tablet 8 mg PO TID PRN #0 tab 09/13/17 [History Confirmed 08/21/21] polyethylene glycol 3350 17 gram oral powder packet (Miralax) 17 g PO DAILY PRN #0 09/13/17 [History Confirmed 08/21/21] prednisone 5 mg tablet 5 mg PO DAILY #0 tab 09/13/17 [History Confirmed 08/21/21] potassium chloride 20 mEq tablet,extended release 20 meq PO DAILY #0 tab 05/14/18 [History Confirmed 08/21/21] ferrous sulfate 325 mg (65 mg iron) tablet 325 mg PO BID 03/08/19 [History Confirmed 08/21/21] metoprolol succinate 25 mg tablet,extended release 24 hr 25 mg PO DAILY 07/27/19 [History Confirmed 08/21/21] lorazepam 0.5 mg tablet 0.5 mg PO Q8H PRN 08/23/19 [History Confirmed 08/21/21] amlodipine 5 mg tablet 5 mg PO DAILY #90 tab 09/01/19 [Rx Confirmed 08/21/21] ascorbic acid (vitamin C) 250 mg tablet 250 mg PO DAILY 10/10/19 [History Confirmed 08/21/21] dextromethorphan-guaifenesin 30 mg-600 mg tablet extended hr (Mucinex DM) 1 tab PO Q12H PRN 10/20/19 [History Confirmed 08/21/21] hydrocortisone 2.5 % topical cream with perineal applicator (Procto-Med HC) 1 applic ND BID PRN 10/20/19 [History Confirmed 08/11/21] nitroglycerin 0.4 mg sublingual tablet 0.4 mg SUBLINGUAL DIRECTED PRN 10/20/19 [History Confirmed 08/21/21] pantoprazole 40 mg tablet,delayed release (Protonix) 40 mg PO BID #0 tab 04/18/20 [History Confirmed 08/21/21] calcium carbonate 600 mg calcium (1,500 mg) tablet (Calcium) 600 mg PO DAILY #90 tab 11/28/20 [Rx Confirmed 08/21/21] calcitriol 0.5 mcg capsule 1.5 mcg PO DAILY #90 cap 02/17/21 [Rx Confirmed 08/21/21] cholecalciferol (vitamin D3) 50 mcg (2,000 unit) capsule 50 mcg PO DAILY #30 cap 03/24/21 [Rx Confirmed 08/21/21] cinacalcet 30 mg tablet (Sensipar) 30 mg PO BID #60 tab 05/19/21 [Rx Confirmed 08/21/21] sucralfate 1 gram tablet 1 g PO QID PRN #120 tab 07/17/21 [Rx Confirmed 08/21/21] diclofenac sodium 1 % topical gel 2 g TOPICAL TID 08/11/21 [History Confirmed 08/11/21] furosemide 20 mg tablet 20 mg PO 3XWK 08/11/21 [History Confirmed 08/21/21] lisinopril 2.5 mg tablet 2.5 mg PO DAILY 08/11/21 [History Confirmed 08/21/21] melatonin 5 mg tablet 5 mg PO HS PRN 08/11/21 [History Confirmed 08/21/21] acetaminophen 500 mg tablet 1,000 mg PO Q8 #180 tab 08/15/21 [Rx Confirmed 08/21/21] buspirone 5 mg tablet 7.5 mg PO TID tab 08/21/21 [History Confirmed 08/21/21] cephalexin 500 mg tablet 500 mg PO BID 08/21/21 [History Confirmed 08/21/21] mirtazapine 15 mg tablet 7.5 mg PO HS tab 08/21/21 [History Confirmed 08/21/21] apixaban 2.5 mg tablet 2.5 mg PO BID #60 tab 08/22/21 [Rx] buspirone 15 mg tablet 7.5 mg PO TID 08/29/21 [History Confirmed 08/29/21] Active Medications Parenteral Electrolytes (Normosol-R) 1,000 mls @ 75 mls/hr IV .[id number] ONE Stop: 08/30/21 02:49 Discontinued Medications Sodium Chloride (Nss 1000ml) 1,000 mls @ 999 mls/hr IV .Q1H1M STA Stop: 08/29/21 11:32 Last Infusion: 08/29/21 11:30 Dose: 0 mls/hr Documented by: [id number] Admin: 08/29/21 10:52 Dose: 999 mls/hr Documented by: [id number] Cefepime HCl (Maxipime) 20 mls @ 5 mls/min IV TODAY@1032 [facility]; Protocol Stop: 08/29/21 12:30 Last Admin: 08/29/21 12:35 Dose: 5 mls/min Documented by: [id number] Ondansetron HCl (Ondansetron Inj 2 Mg/Ml 2 Ml Vial) 4 mg IV NOW STA Stop: 08/29/21 10:33 Last Admin: 08/29/21 10:51 Dose: 4 mg Documented by: [id number] ECG Additional Comments: Atrial fibrillation Nonspecific ST abnormality Abnormal ECG When compared with ECG of 19-JUL-2021 12:38, No significant change was found Code Status & VTE Plan Code Status CODE: DNR/DNI VTE: SCDs, Apixaban 2.5mg PO BID VTE Prophylaxis Plan VTE Prophylaxis will be ordered: Yes Supervising Physician Co-Signing Physician Notes ENROBER TENDER Supervision note: I have personally seen and examined the patient and discussed and verified the cerrato points of the history and physical along with the plan with OSCAR Cantu with the following exceptions and/or additions: This patient is an 86-year-old female known to me who presents with dysuria, generalized weakness, fatigue after improving since discharge from last hospitalization for UTI. She was found to have a UTI in the ER as well as mildly elevated calcium levels again. She has some suprapubic abdominal pain but otherwise no abdominal or flank pains. History and ROS reviewed as above Vitals reviewed Gen: AAOx3, NAD HEENT: Anicteric sclerae, EOMI CV: Irregularly irregular, normal rate, no mgr nl S1S2 Pulm: CTAB no wcr Abd: +BS soft NT ND no masses or hernias Ext: No edema, 2+ DP pulses Skin: No rashes, warm/dry Neuro: Full strength throughout Laboratory values and KUB image personally reviewed by me 86-year-old female here with recurrent UTI causing generalized weakness and fatigue, but no evidence of sepsis. Also with mild hypercalcemia -Admit for IV antibiotics until urine cultures result -Consider daily methenamine versus going back on daily prophylactic antibiotics to prevent future recurrent UTIs -Could also consider vaginal estrogen cream although does have a history of DVT -Gently hydrate for hypercalcemia -Discontinue calcium carbonate PT/OT consults ordered PG Care Time/CCT Total # of Minutes Spent Total Time Spent with Patient: Total time spent is greater than 50% in coordination of care (as documented) at patient's floor/unit and/or counseling patient: Coding Level of Care Code 92627 Initial Inpt Care Lvl 3 Diagnoses Recurrent UTI (urinary tract infection) N39.0 Hyperparathyroidism E21.3 Hypertension I10 Coronary artery disease I25.10 Anemia D64.9 Multiple myeloma C90.01 Multiple myeloma remission status: in remission S/P IVC filter Z95.828 Shoulder pain, bilateral M25.511; M25.512 Hypothyroidism E03.9 (1) Multiple myeloma Multiple myeloma remission status: in remission Qualified Code(s): C90.01 - Multiple myeloma in remission
[2021-08-29] MEDS ORDERED: NITROGLYCERIN SL 0.4 MG/TAB TAB SL PRN (15:03)
[2021-08-29] MEDS ORDERED: POLYETHYLENE (MIRALAX) 17 GM PACK PO PRN (15:03)
[2021-08-29] MEDS ORDERED: LORazepam 0.5 MG TAB PO PRN (15:03)
[2021-08-29] MEDS ORDERED: SUCRALFATE 1 GM TAB PO PRN (15:03)
[2021-08-29] MEDS ORDERED: MELATONIN 3 MG TAB PO PRN (15:14)
[2021-08-29] MEDS: LIDOCAINE 5% 1 PATCH TD SCH (15:46)
[2021-08-29] MEDS: FUROSEMIDE 20 MG TAB PO SCH (15:46)
--- NOTE | 2021-08-29 17:26 | XRay Report ---
KUB CLINICAL HISTORY: evaluate for any bladder/renal stones COMPARISON STUDY: CT of the abdomen and pelvis August 11, 2021. FINDINGS: IVC filter and left hip arthroplasty are incidentally noted. Bowel gas pattern is normal. A 3 mm right renal calculus is noted. No ureteral calculi identified although sensitivity is diminishe d given stool and vascular calcifications. IMPRESSION: 1. 3 mm right renal calculus. 2. No ureteral calculi identified although sensitivity diminished given overlying stool. ACT 112: Negative or not required by law. Electronically signed by: Francis Cuenca M.D. 08/29/2021 5:25 PM
[2021-08-29] MEDS: CINACALCET HCL 30 MG TAB PO SCH (21:39)
[2021-08-29] MEDS: busPIRone 7.5 MG TAB PO SCH (21:40)
[2021-08-29] MEDS: FERROUS SULFATE 325 MG TAB PO SCH (21:40)
[2021-08-29] MEDS: APIXABAN 2.5 MG TAB PO SCH (21:40)
[2021-08-29] MEDS: PANTOprazole 40 MG TAB PO SCH (21:40)
[2021-08-29] MEDS: MIRTAZAPINE TAB 15 MG TAB PO SCH (21:41)
[2021-08-29] MEDS: CEFEPIME 2,000 MG in SYRINGE 0 ML IV SCH (22:56)
[2021-08-30] MEDS: LEVOTHYROXINE SODIUM 75 MCG TABLET PO SCH (06:28)
[2021-08-30 06:50] LABS: Basophils # (auto) 0.02 K/uL (0-0.2); Basophils % (auto) 0.3 %; Eosinophils # (auto) 0.12 K/uL (0-0.5); Eosinophils % (auto) 1.6 %; Hematocrit (blood only) 30.9 % (37-47); Hemoglobin 10.1 g/dL (12.0-16.0); Immature Granulocytes # (auto) 0.04 K/uL (0.00-0.02); Immature Granulocytes % (auto) 0.5 %; Lymphocytes # (auto) 1.44 K/uL (1.2-3.4); Mean Corpuscular Hemoglobin 31.1 pg (25-34); Mean Corpuscular Hgb Conc 32.7 g/dL (32-36); Mean Corpuscular Volume 95.1 fL (80-100); Mean Platelet Volume 10.2 fL (7.4-10.4); Monocytes # (auto) 0.75 K/uL (0.11-0.59); Monocytes % (auto) 9.9 %; Neutrophils % (auto) 68.7 %; Platelet Count 257 K/uL (130-400); RDW Coefficient of Variation 14.1 % (11.5-14.5); RDW Standard Deviation 48.9 fL (36.4-46.3); Red Blood Count 3.25 M/uL (4.2-5.4); White Blood Count 7.57 K/uL (4.8-10.8)
--- NOTE | 2021-08-30 06:59 | Electrocardiogram Report ---
Test Reason : Blood Pressure : / mmHG Vent. Rate : 097 BPM Atrial Rate : 086 BPM P-R Int : 000 ms QRS Dur : 092 ms QT Int : 332 ms P-R-T Axes : 000 010 051 degrees QTc Int : 421 ms Atrial fibrillation Nonspecific ST abnormality Abnormal ECG When compared with ECG of 19-JUL-2021 12:38, No significant change was found Confirmed by Jaren Reyes ([id number]) on 08/30/2021 6:58:42 AM Referred By: Obinna Diop [place] Confirmed By:Eamon Reyes
[2021-08-30 07:20] LABS: BUN Creatinine Ratio 22.2 (10-20); Calcium 9.5 mg/dl (8.5-10.1); Creatinine Clr Calc Pharmacy 48.1 ml/min; Magnesium 1.7 mg/dl (1.8-2.4); Potassium 3.5 mmol/L (3.5-5.1)
[2021-08-30] MEDS: METOPROLOL SUCC 25MG EXT REL TAB PO SCH (07:41)
[2021-08-30] MEDS: CALCITRIOL 0.25 MCG CAPSULE PO SCH (07:41)
[2021-08-30] MEDS: PANTOprazole 40 MG TAB PO SCH ×2 (07:42→20:32)
[2021-08-30] MEDS: amLODIPine BESYLATE 5 MG TAB PO SCH (07:42)
[2021-08-30] MEDS: POTASSIUM CHLORIDE CRTAB 20 MEQ TABCR PO SCH (07:42)
[2021-08-30] MEDS: busPIRone 7.5 MG TAB PO SCH ×3 (07:42→20:32)
[2021-08-30] MEDS: GLUCOSAMINE SULFATE 500 MG CAP PO SCH (07:42)
[2021-08-30] MEDS: FERROUS SULFATE 325 MG TAB PO SCH ×2 (07:42→20:32)
[2021-08-30] MEDS: CINACALCET HCL 30 MG TAB PO SCH ×2 (07:43→20:31)
[2021-08-30] MEDS: APIXABAN 2.5 MG TAB PO SCH ×2 (07:43→20:32)
[2021-08-30] MEDS: lisinopril 2.5 MG TAB PO SCH (07:43)
[2021-08-30] MEDS: predniSONE 5 MG TAB PO SCH (07:43)
[2021-08-30] MEDS: LIDOCAINE 5% 1 PATCH TD SCH (07:44)
[2021-08-30] MEDS: CEFEPIME 2,000 MG in SYRINGE 0 ML IV SCH (10:47)
[2021-08-30] MEDS ORDERED: VANCOMYCIN CONSULT ACTIVE PRN (15:18)
[2021-08-30] MEDS ORDERED: VANCOMYCIN HCL 1,750 MG in SODIUM CHLORIDE 0.9% 500 ML IV STA (15:33)
[2021-08-30] MEDS ORDERED: MAGNESIUM SULFATE / D5W 1 GM/100 ML BAG IV ONE (16:00)
--- NOTE | 2021-08-30 18:52 | XRay Report ---
XR foot RT 2V HISTORY: 86 years-old Female recent trauma, 1st toe pain; eval Fx acute right foot pain status post trauma COMPARISON: None TECHNIQUE: 2 views of the right foot FINDINGS: Demineralized appearance of the bones. Extension of the metatarsal-phalangeal joints limits the study . Angulation of the fifth metatarsal neck is suggestive of a chronic fracture. There is mild cortical irregularity involving the proximal axial aspect of the first proximal phalanx with adjacent soft ti ssue swelling. There may be associated mild cortical impaction. Moderate soft tissue swelling. Midfoo t alignment appears anatomic. Spurring of the calcaneus. Moderate multifocal osteoarthritis. Arterial calcifications. IMPRESSION: 1. Findings are suspicious for an acute nondisplaced fracture of the first proximal phalanx with mode rate soft tissue swelling. Correlate with point tenderness. 2. Healed chronic fifth metatarsal fracture. ACT 112: Negative or not required by law. The above report was generated using voice recognition software. It may contain grammatical, syntax o r spelling errors. Electronically signed by: Eduardo Lee M.D. 08/30/2021 6:51 PM
--- NOTE | 2021-08-30 19:08 | Pharmacy Report ---
Pharmacy Vanc AUC Short Note - Date of Service August 30, 2021 - Assessment & Plan Assessment 86 year old F receiving IV Vancomycin and Cefepime (not a consult) for treatment of recurrent UTI. Pertinent microbiologic data includes: Urine culture growing Strep species. Day # 1 of antimicrobial therapy. Plan Vancomycin * AUC/ROXANN is the preferred PK/PD target for vancomycin * AUC guided dosing is effective and associated with decreased risk of nephrotoxicity compared to traditional trough targets * Give Vancomycin 1750mg (~25mg/kg) IV x 1 as a loading dose * According to [employer], Vancomycin 1000mg IV q24 is estimated to produce a trough level of 13.7 mcg/mL, which is predicted to achieve target AUC/ROXANN of 400-600 mg/L.hr and may be associated with a 9 % risk of nephrotoxicity * Trough or random level ordered for: 09/01/21 to reassess dosing regimen; early level due to unpredictable pharmacokinetics in elderly female patients Pharmacy will continue to follow and will adjust dose/frequency as necessary. Thank you.
[2021-08-30] MEDS: MIRTAZAPINE TAB 15 MG TAB PO SCH (20:32)
--- NOTE | 2021-08-30 22:08 | Hospitalist Progress Note ---
Date of Service August 30, 2021 Assessment & Plan (1) Recurrent UTI (urinary tract infection): Plan: Suspect baseline urinary incontinence could be setting her up for recurrent infection. Check for incomplete bladder emptying by checking PVR. For UTI - cont cefepime; add vanco IV for strep species (likely to be enterococcus). Pt is not septic. (2) Hyperparathyroidism: Plan: Chronic. Calcium level mild at presentation - likely related to low intravascular volume. Calcium normalized with fluids overnight. Recheck BMP am. 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 and GI bleeds (8) Shoulder pain, bilateral: (9) Hypothyroidism: Plan: Continue Synthroid 75mcg daily TSH 06/2021 wnl (10) Fracture of right great toe: Plan: following the visit I ordered a right foot x-ray this showed nondisplaced Fx of the first toe, right foot non weight-bearing to RLE until ortho sees spoke with Dr Valencia who will consult tomorrow likely to need boot or other (11) DVT prophylaxis: Plan: eliquis 2.5mg BID (12) Persistent atrial fibrillation: Plan: cont eliquis cont metoprolol xl Plan: updated pt's son by phone this evening will need PT/OT due to weakness Admission and Anticipated Discharge Date Admission Date: August 29, 2021 Subjective patient c/o fatigue/weakness and right foot pain, mainly the right great toe she hit her foot against a wheelchair at [facility] apparently she was trying to walk, was weak, and staff members had to lower her to the ground during that event she hit her foot left foot is fine no urinary symptoms other than baseline urinary incontinence wears Depends eating good - she likes the food Review of Systems Review of Systems: gen - no fevers/chills cv - no chest pain pulm - no cough or dyspnea abd - no pain Physical Exam Physical Exam: gen - pleasant, weak-appearing mouth - MMM neck - no JVD heart - Reg rate, irregular rhythm, s1 s2 lungs - CTA b/l abd - soft NT ND BS+ ext - no edema, pulses 2+ b/l musculo - right great toe is ecchymotic, swollen, and tender at base of the prox phalange; mild pain over 2nd/3rd distal metatarsal on dorsum of foot; 2nd toe w ith mild ecchymoses; ankle with normal ROM Results & Data Results & Data ([facility]) Vital Signs (Past 12 Hours) Vital Signs Temp Pulse Pulse Resp BP Pulse Ox 08/30/21 21:56 36.4 C L 73 16 127/66 95 08/30/21 16:00 36.9 C 73 18 103/67 96 Laboratory Results Laboratory Results - last 24 hr 08/30/21 08/30/21 08/30/21 06:24 06:24 06:24 WBC 7.57 RBC 3.25 L Hgb 10.1 L Hct 30.9 L MCV 95.1 MCH 31.1 MCHC 32.7 RDW Std Deviation 48.9 H RDW Coeff of [place] 14.1 Plt Count 257 MPV 10.2 Immature Gran % (Auto) 0.5 Neut % (Auto) 68.7 Lymph % (Auto) 19.0 [place] % (Auto) 9.9 Eos % (Auto) 1.6 Baso % (Auto) 0.3 Neut # (Auto) 5.20 Lymph # (Auto) 1.44 [place] # (Auto) 0.75 H Eos # (Auto) 0.12 Baso # (Auto) 0.02 Immature Gran # (Auto) 0.04 H Sodium 138 Potassium 3.5 D Chloride 107 Carbon Dioxide 25 Anion Gap 6.0 BUN 18 Creatinine 0.83 Est Cr Clr Drug Dosing 48.1 Est GFR ( Amer) 73.0 Est GFR (Non-Af Amer) 63.0 BUN/Creatinine Ratio 22.2 H Glucose 79 Calcium 9.5 D Ionized Calcium 1.23 Magnesium 1.7 L Diagnostic Findings urine cx - GNR strep species PG Care Time/CCT Total # of Minutes Spent Total Time Spent with Patient: Total time spent is greater than 50% in coordination of care (as documented) at patient's floor/unit and/or counseling patient: Coding Level of Care Code 19279 Subseq Hosp Care Lvl 3 Diagnoses Recurrent UTI (urinary tract infection) N39.0 Hyperparathyroidism E21.3 Hypertension I10 Coronary artery disease I25.10 Anemia D64.9 Multiple myeloma C90.01 Multiple myeloma remission status: in remission S/P IVC filter Z95.828 Shoulder pain, bilateral M25.511; M25.512 Hypothyroidism E03.9 Fracture of right great toe S92.401A DVT prophylaxis Z29.9 Persistent atrial fibrillation I48.19 (1) Multiple myeloma Multiple myeloma remission status: in remission Qualified Code(s): C90.01 - Multiple myeloma in remission
[2021-08-31] MEDS: LEVOTHYROXINE SODIUM 75 MCG TABLET PO SCH (05:03)
[2021-08-31] MEDS: ACETAMINOPHEN 500 MG TAB PO SCH ×3 (09:03→20:07)
[2021-08-31] MEDS: APIXABAN 2.5 MG TAB PO SCH ×2 (09:03→20:07)
[2021-08-31] MEDS: METOPROLOL SUCC 25MG EXT REL TAB PO SCH (09:04)
[2021-08-31] MEDS: GLUCOSAMINE SULFATE 500 MG CAP PO SCH (09:04)
[2021-08-31] MEDS: FERROUS SULFATE 325 MG TAB PO SCH ×2 (09:04→20:07)
[2021-08-31] MEDS: busPIRone 7.5 MG TAB PO SCH ×3 (09:04→20:07)
[2021-08-31] MEDS: amLODIPine BESYLATE 5 MG TAB PO SCH (09:04)
[2021-08-31] MEDS: CINACALCET HCL 30 MG TAB PO SCH ×2 (09:04→20:07)
[2021-08-31] MEDS: PANTOprazole 40 MG TAB PO SCH ×2 (09:04→20:07)
[2021-08-31] MEDS: lisinopril 2.5 MG TAB PO SCH (09:05)
[2021-08-31] MEDS: LIDOCAINE 5% 1 PATCH TD SCH (09:05)
[2021-08-31] MEDS: CALCITRIOL 0.25 MCG CAPSULE PO SCH (09:05)
[2021-08-31] MEDS: predniSONE 5 MG TAB PO SCH (09:05)
[2021-08-31] MEDS: POTASSIUM CHLORIDE CRTAB 20 MEQ TABCR PO SCH (09:06)
[2021-08-31 09:17] LABS: BUN Creatinine Ratio 28.5 (10-20); Calcium 8.5 mg/dl (8.5-10.1); Creatinine Clr Calc Pharmacy 64.4 ml/min; Est GFR (African American) 93.3 ml/min; Est GFR (Non-African American) 80.5 ml/min; Potassium 3.5 mmol/L (3.5-5.1)
[2021-08-31] MEDS ORDERED: predniSONE 10 MG TABLET PO STA (09:21)
[2021-08-31] MEDS ORDERED: CEFEPIME 2,000 MG in SYRINGE 0 ML IV SCH (11:00)
[2021-08-31] MEDS: VANCOMYCIN HCL 1,000 MG in SODIUM CHLORIDE 0.9% 250 ML IV SCH (11:02)
[2021-08-31] MEDS ORDERED: VANCOMYCIN HCL 1,000 MG in SODIUM CHLORIDE 0.9% 250 ML IV SCH (14:00)
--- NOTE | 2021-08-31 15:05 | Orthopedic Consultation ---
Date of Service August 31, 2021 Assessment & Plan (1) Fracture of right great toe: I talked to her about the diagnosis and treatment options at bedside. Fortunately this will not require surgery. I would take 4 to 6 weeks to heal. I am going to order a hard sole shoe. She can be weightbearing as tolerated in the hard sole shoe. She can follow-up with orthopedics if she likes for repeat x-rays to make sure everything is healing. We would see her in the office in about 4 weeks. Our office phone number is [phone]. Orthopedics will sign off. If you have any further questions please feel free to contact me personally at [phone]. History of Present Illness Reason for Consultation: Right great toe fracture. Requesting Physician: . Attending Physician: Nawaf Franco Allison Johnson is a pleasant 86-year-old female who got her right great toe stuck between the spokes of a wheelchair couple days ago. She had significant right toe pain. She came to the emergency room and radiographs demonstrated a nondisplaced fracture of the base of the proximal phalanx of the right great toe. She was admitted to the medical service with increased fatigue. Orthopedics was consulted to evaluate and treat the right great toe.. Allergies Allergy/AdvReac Type Severity Reaction Status Date / Time aspartame Allergy Mild HEADACHES, Verified 08/29/21 13:23 N/V shellfish derived Allergy Mild HEADACHE Verified 08/29/21 13:23 AND N/V Cipro Allergy Unknown ELEVATED Verified 09/20/17 17:44 BLOOD PRESSURE ciprofloxacin Allergy Unknown ELEVATED Verified 08/29/21 13:23 BLOOD PRESSURE Iodinated Contrast Media Allergy Unknown R/T Verified 08/29/21 13:23 SHELLFISH ALLERGY nitrofurantoin Allergy Unknown NAUSEA,ABDOMINAL Verified 08/29/21 13:23 PAIN Quinolones Allergy Unknown CIPRO - Verified 08/29/21 13:23 ELEVATED BLOOD PRESSURE Sulfa (Sulfonamide Allergy Unknown UNKNOWN - Verified 08/29/21 13:23 Antibiotics) PT STATES DOES NOT REMEMBER Home Medications Medication Instructions Recorded Confirmed Type cyanocobalamin (vitamin B-12) 1,000 mcg PO DAILY #0 09/13/17 08/29/21 History 1,000 mcg tablet (Vitamin B-12) glucosamine sulfate 500 mg tablet 1,000 mg PO DAILY #0 09/13/17 08/29/21 History (Glucosamine) levothyroxine 75 mcg tablet 75 mcg PO DAILYBB #0 09/13/17 08/29/21 History (Synthroid) ondansetron 8 mg disintegrating 8 mg PO TID PRN #0 tab 09/13/17 08/29/21 History tablet polyethylene glycol 3350 17 gram 17 g PO DAILY PRN #0 09/13/17 08/29/21 History oral powder packet (Miralax) prednisone 5 mg tablet 5 mg PO QAM #0 tab 09/13/17 08/29/21 History potassium chloride 20 mEq 20 meq PO DAILY #0 tab 05/14/18 08/29/21 History tablet,extended release (K-Tab) ferrous sulfate 325 mg (65 mg 325 mg PO BID 03/08/19 08/29/21 History iron) tablet (Iron (ferrous sulfate)) metoprolol succinate 25 mg 25 mg PO DAILY 07/27/19 08/29/21 History tablet,extended release 24 hr (Toprol XL) lorazepam 0.5 mg tablet (Ativan) 0.5 mg PO Q8H PRN 08/23/19 08/29/21 History ascorbic acid (vitamin C) 250 mg 250 mg PO DAILY 10/10/19 08/29/21 History tablet (Vitamin C) dextromethorphan-guaifenesin 30 1 tab PO Q12H PRN 10/20/19 08/29/21 History mg-600 mg tablet extended ipsseki35 hr (Mucinex DM) hydrocortisone 2.5 % topical cream 1 applic [place] BID PRN 10/20/19 08/29/21 History with perineal applicator (Procto-Med HC) nitroglycerin 0.4 mg sublingual 0.4 mg SUBLINGUAL DIRECTED PRN 10/20/19 08/29/21 History tablet (Nitrostat) pantoprazole 40 mg tablet,delayed 40 mg PO BID #0 tab 04/18/20 08/29/21 History release (Protonix) cinacalcet 30 mg tablet (Sensipar) 30 mg PO BID #60 tab 05/19/21 08/29/21 Rx furosemide 20 mg tablet (Lasix) 20 mg PO 3XWK 08/11/21 08/29/21 History lisinopril 2.5 mg tablet (Zestril) 2.5 mg PO DAILY 08/11/21 08/29/21 History melatonin 5 mg tablet 5 mg PO HS PRN 08/11/21 08/29/21 History cephalexin 500 mg tablet 500 mg PO BID 08/21/21 08/29/21 History mirtazapine 15 mg tablet (Remeron) 7.5 mg PO HS tab 08/21/21 08/29/21 History acetaminophen 500 mg tablet 500 mg PO QAM 08/29/21 08/29/21 History (Acetaminophen Extra Strength) amlodipine 5 mg tablet (Norvasc) 5 mg PO DAILY 08/29/21 08/29/21 History apixaban 2.5 mg tablet (Eliquis) 2.5 mg PO BID 08/29/21 08/29/21 History buspirone 15 mg tablet 7.5 mg PO TID 08/29/21 08/29/21 History calcitriol 0.5 mcg capsule 1.5 mcg PO DAILY 08/29/21 08/29/21 History (Rocaltrol) calcium carbonate 600 mg calcium 600 mg PO QDD 08/29/21 08/29/21 History (1,500 mg) tablet (Calcium) camphor 11 %-menthol 16 % topical 1 applic TOPICAL UD 08/29/21 08/29/21 History cream (Icy Hot Advanced Relief) cranberry fruit concentrate 250 mg 250 mg PO BID 08/29/21 08/29/21 History chewable tablet (Azo Cranberry) lidocaine 5 % topical patch 1 patch TOPICAL DAILY 08/29/21 08/29/21 History (Lidoderm) sucralfate 1 gram tablet (Carafate) 1 g PO QID PRN 08/29/21 08/29/21 History Past Med/Surg History Medical History Acute GI bleeding (2017) Acute hip pain Adenocarcinoma of rectum (2017) "Diarrhea and rectal bleeding Status post colonoscopy and biopsy 02/09/2017 showing high-grade dysplasia suspicious for adenocarcinoma Status post transrectal resection 02/15/2017 Stage pT2 [id number] Plan for combined radiation and chemotherapy, chemotherapy comprised of Xeloda Status post completion of radiation therapy 05/17/2017. She received 5040 cGy. Dosage of Xeloda was adjusted due to side effect of diarrhea" Anxiety Arthritis Atrial fibrillation with RVR Blood dyscrasia Cancer Chronic steroid use Chronic systolic heart failure Constipation Coronary artery disease DVT (deep venous thrombosis) Electrolyte abnormality Fatigue Gastric ulcer (2014) Gastrointestinal disorder GI bleed Alyse filter in place High cholesterol History of GI bleed History of parathyroid disease Hx of deep venous thrombosis Hypertension Multiple myeloma Osteoporosis Pneumonia (09/2019) Shoulder pain, bilateral Thrombophlebitis Thyroid disease Urinary tract infection Surgical History History of appendectomy History of bilateral salpingo-oophorectomy History of left hip hemiarthroplasty History of rectal surgery S/P CABG (coronary artery bypass graft) (2006) S/P hysterectomy S/P IVC filter Family History Other Coronary heart disease Heart failure Denies family history of Ovarian cancer Prostate cancer Myocardial infarction Breast cancer Colorectal cancer Social History Smoking Status: Never smoker Second Hand Exposure: No; Hx Alcohol Use: No Hx Substance Use: No Preferred Language: Tanzanian Communication Ability: Effective Visual Impairment: Partially Limited Hearing Ability: Hard of Hearing Administrative Resources Associate Required: No Beliefs That Will Affect Care: None marital status: / Current Living Situation: Correction Current Living Situation Comment: [facility] current occupational status: retired 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 [employer]MENT [employer] How many Children do You have: 3 Other Information That Helps Us Care for You: No Feels Safe at Home: Yes Safety Concerns: Feels Safe At This Time Childhood Exposure to Second-Hand Smoke: No during the past year weight has: remained stable Dental Care, Regularly: Yes Physical Activity Frequency: Does not Exercise Seatbelt Use: always Sunscreen Use: Yes Assistive Devices: Glasses Review of Systems All systems reviewed & are unremarkable except as noted in HPI & below. Physical Exam On physical examination the right toe, there is ecchymosis throughout. There is no deformity. She has tenderness palpation at the MTP joint. I am not able to do any range of motion of the toe because of the pain. There are no abrasions lesions or ulcerations of the skin.. Constitutional WD/WN, vitals as above Eyes PERRL, conjunctivae normal, anicteric sclerae ENMT external ear and nose normal, oropharynx normal Neck trachea midline, no thyromegaly Respiratory normal respiratory effort Cardiovascular RRR, no murmur, no edema Gastrointestinal (Abdomen) normal bowel sounds, soft, nontender, no hepatosplenomegaly Psychiatric A+Ox3, euthymic affect Results & Data Results & Data Laboratory Results . Diagnostic Findings X-rays reviewed do show a very minimally displaced fracture at the medial condyle of the base of the proximal phalanx of the right great toe.. PG Care Time/CCT Total # of Minutes Spent Total Time Spent with Patient: Total time spent is greater than 50% in coordination of care (as documented) at patient's floor/unit and/or counseling patient: Coding Level of Care Code 46761 Inpt Consult Level 4 Diagnoses Fracture of right great toe S92.401A
--- NOTE | 2021-08-31 19:49 | Hospitalist Progress Note ---
Date of Service August 31, 2021 Assessment & Plan (1) Recurrent UTI (urinary tract infection): Plan: Suspect baseline urinary incontinence could be setting her up for recurrent infection. PVR 50cc; thus, incomplete bladder emptying likely not contributing. recent CT abd/pelvis without anatomic abnormalities or obstructing stones. Urine cx with - * pseudomonas, pansensitive -- d/c cefepime, change to once daily levaquin 500mg daily; plan 7 days in total of Rx --- today is day # 3 * enterococcus -- resistant to amp; sens to vanco and dapto - continue vanco IV, day #2; plan 7 days in total of Rx; consider changing to dapto for ease of administration and less renal injury risk could consider methenamine for UTI prevention previously took rotating preventive abx but would not recommend such as she already has resistant pathogens (2) Hyperparathyroidism: Plan: Chronic. Calcium level mild at presentation - likely related to low intravascular volume. Calcium normalized with fluids. Recheck BMP am. 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 and GI bleeds (8) Shoulder pain, bilateral: (9) Hypothyroidism: Plan: Continue Synthroid 75mcg daily TSH 06/2021 wnl (10) Fracture of right great toe: Plan: nondisplaced Fx of the first toe, right foot Dr Valencia saw in consult - WBAT with stiff soled shoe in place (he ordered such) 25-OH vit D level low in 02/2021 -- repeat level in am (11) DVT prophylaxis: Plan: eliquis 2.5mg BID (12) Persistent atrial fibrillation: Plan: controlled cont eliquis cont metoprolol xl Plan: updated pt's son by phone this evening and yesterday pm as well cont PT/OT Admission and Anticipated Discharge Date Admission Date: August 29, 2021 Subjective patient quite anxious throughout the visit she asks multiple questions about her UTIs, why they keep happening, etc. bladder scan PVR 50cc only c/o right foot/great toe pain she was a little confused during the visit, often bringing up items of conversation that were completely unrelated to her current hospital stay eating fair Review of Systems Review of Systems: gen - no fevers or chills CV - no cp or orthopnea pulm - no cough/wheeze/dyspnea GI - no pain/N/V Physical Exam Physical Exam: gen - pleasant, weak-appearing, slightly confused mouth - MMM neck - no JVD heart - Reg rate, irregular rhythm, s1 s2 lungs - CTA b/l abd - soft NT ND BS+ ext - no edema, pulses 2+ b/l musculo - right great toe is ecchymotic, swollen, and tender at base of the prox phalange; 2nd toe with mild ecchymoses; no changes from prior exam psych - a/o x 2; anxious Results & Data Results & Data ([facility]) Vital Signs (Past 12 Hours) Vital Signs Temp Pulse Resp BP Pulse Ox 08/31/21 15:49 36.7 C 82 14 122/70 96 Laboratory Results Laboratory Results - last 24 hr 08/31/21 07:57 Sodium 140 Potassium 3.5 Chloride 108 H Carbon Dioxide 25 Anion Gap 6.0 BUN 18 Creatinine 0.62 Est Cr Clr Drug Dosing 64.4 Est GFR ( Amer) 93.3 Est GFR (Non-Af Amer) 80.5 BUN/Creatinine Ratio 28.5 H Glucose 93 Calcium 8.5 Magnesium 2.0 Diagnostic Findings urine cx - pansens pseudomonas; MDR enterococcus PG Care Time/CCT Total # of Minutes Spent Total Time Spent with Patient: Total time spent is greater than 50% in coordination of care (as documented) at patient's floor/unit and/or counseling patient: Coding Level of Care Code 70504 Subseq Hosp Care Lvl 2 Diagnoses Recurrent UTI (urinary tract infection) N39.0 Hyperparathyroidism E21.3 Hypertension I10 Coronary artery disease I25.10 Anemia D64.9 Multiple myeloma C90.01 Multiple myeloma remission status: in remission S/P IVC filter Z95.828 Shoulder pain, bilateral M25.511; M25.512 Hypothyroidism E03.9 Fracture of right great toe S92.401A DVT prophylaxis Z29.9 Persistent atrial fibrillation I48.19 (1) Multiple myeloma Multiple myeloma remission status: in remission Qualified Code(s): C90.01 - Multiple myeloma in remission
[2021-08-31] MEDS: MIRTAZAPINE TAB 15 MG TAB PO SCH (20:07)
[2021-08-31] MEDS: levoFLOXacin/D5W 500 MG/100 ML BAG IV SCH (23:12)
[2021-09-01] MEDS ORDERED: VANCOMYCIN TROUGH ONE ×2 (05:30→13:30)
[2021-09-01] MEDS: LEVOTHYROXINE SODIUM 75 MCG TABLET PO SCH (05:40)
[2021-09-01] MEDS: VANCOMYCIN HCL 1,000 MG in SODIUM CHLORIDE 0.9% 250 ML IV SCH (08:13)
[2021-09-01 08:30] LABS: BUN Creatinine Ratio 26.6 (10-20); Calcium 9.2 mg/dl (8.5-10.1); Creatinine Clr Calc Pharmacy 45.9 ml/min; Est GFR (African American) 68.9 ml/min; Est GFR (Non-African American) 59.5 ml/min; Potassium 3.5 mmol/L (3.5-5.1)
[2021-09-01] MEDS: FUROSEMIDE 20 MG TAB PO SCH (08:59)
[2021-09-01] MEDS: GLUCOSAMINE SULFATE 500 MG CAP PO SCH (09:00)
[2021-09-01] MEDS ORDERED: predniSONE 5 MG TAB PO ONE (09:00)
[2021-09-01] MEDS: PANTOprazole 40 MG TAB PO SCH ×2 (09:01→20:18)
[2021-09-01] MEDS: METOPROLOL SUCC 25MG EXT REL TAB PO SCH (09:02)
[2021-09-01] MEDS: ACETAMINOPHEN 500 MG TAB PO SCH ×3 (09:03→20:14)
[2021-09-01] MEDS: amLODIPine BESYLATE 5 MG TAB PO SCH (09:03)
[2021-09-01] MEDS: lisinopril 2.5 MG TAB PO SCH (09:04)
[2021-09-01] MEDS: predniSONE 5 MG TAB PO SCH (09:05)
[2021-09-01] MEDS: LIDOCAINE 5% 1 PATCH TD SCH (09:08)
[2021-09-01] MEDS: busPIRone 7.5 MG TAB PO SCH ×3 (09:11→20:16)
[2021-09-01] MEDS: APIXABAN 2.5 MG TAB PO SCH ×2 (09:11→20:16)
[2021-09-01] MEDS: FERROUS SULFATE 325 MG TAB PO SCH ×2 (09:12→20:19)
[2021-09-01] MEDS: CINACALCET HCL 30 MG TAB PO SCH ×2 (09:13→20:23)
[2021-09-01] MEDS: CALCITRIOL 0.25 MCG CAPSULE PO SCH (09:14)
[2021-09-01] MEDS: POTASSIUM CHLORIDE CRTAB 20 MEQ TABCR PO SCH (09:32)
--- NOTE | 2021-09-01 10:58 | Pharmacy Report ---
Pharmacy Vanc AUC Short Note - Date of Service September 01, 2021 - Assessment & Plan Assessment * Ms Marr is an 86 year old F receiving IV Vancomycin and Levaquin (not a consult) for treatment of recurrent UTI. * Pertinent microbiologic data includes: Urine culture, with Pseudomonas and Enterococcus faecium (multi-drug resistant) * Day #3 of antimicrobial therapy. * Vancomycin level was obtained this morning, following the first maintenance dose. (Vanc level: 12.3 mcg/mL) * This is expected to be supratherapeutic at steady-state. Plan Vancomycin * AUC/ROXANN is the preferred PK/PD target for vancomycin. * AUC guided dosing is effective and associated with decreased risk of nephrotoxicity compared to traditional trough targets. * At this time, reduce dose to vancomycin 1000mg IV q24h. * According to [facility], Vancomycin 1000mg IV q24 is estimated to produce a trough level of 15 mcg/mL, which is predicted to achieve target AUC/ROXANN of 400-600 mg/L.hr and may be associated with a 10% risk of nephrotoxicity * No further levels have been ordered at this time. Will check another level in 1-2 days if patient remains on vancomycin. * Consider switching to IV Daptomycin as a less nephrotoxic option. This is appropriate per [facility]. Levaquin 500mg IV q24h (not a pharmacy consult) * Will consider adjusting dose tomorrow, if CrCl remains below 50mL/min. * Will adjust per renal dosing policy. Pharmacy will continue to follow and will adjust dose/frequency as necessary. Thank you.
--- NOTE | 2021-09-01 11:44 | Hospitalist Progress Note ---
Date of Service September 01, 2021 Assessment & Plan (1) Recurrent UTI (urinary tract infection): Plan: Suspect baseline urinary incontinence could be setting her up for recurrent infection. PVR 50cc; thus, incomplete bladder emptying likely not contributing. recent CT abd/pelvis without anatomic abnormalities or obstructing stones. Urine cx with - * pseudomonas, pansensitive -- d/c cefepime, switched to levaquin 500mg daily (08/31); plan 7 days in total of Rx --- today is day # 4 * enterococcus -- resistant to amp; sens to vanco and dapto - continue vanco IV, day #3; plan 7 days in total of Rx; consider changing to dapto for ease of administration and less renal injury risk could consider methenamine for UTI prevention previously took rotating preventive abx but would not recommend such as she already has resistant pathogens (2) Hyperparathyroidism: Plan: Chronic. Calcium level mild at presentation - likely related to low intravascular volume. Calcium normalized with fluids. (3) Hypertension: Plan: Continue metoprolol, lisinopril, lasix, amlodipine Controlled (4) Coronary artery disease: Plan: no ischemic symptoms at this time (5) Anemia: Plan: stable H/H most recent Hb 10.1 follow with periodic cbc for stability (6) Multiple myeloma: Plan: Continue prednisone but plan for 2-3 days of stress dose steroids given the UTI give 30mg of prednisone extra today then 15mg extra today, 09/01 will resume usual dose of 5mg/day tomorrow (7) S/P IVC filter: Plan: Placed in 2006 for multiple DVT and GI bleeds (8) Shoulder pain, bilateral: (9) Hypothyroidism: Plan: Continue Synthroid 75mcg daily TSH 06/2021 wnl (10) Fracture of right great toe: Plan: nondisplaced Fx of the first toe, right foot Dr Valencia saw in consult - WBAT with stiff soled shoe in place (he ordered such) 25-OH vit D level low in 02/2021 -- repeat level in am (11) DVT prophylaxis: Plan: eliquis 2.5mg BID (12) Persistent atrial fibrillation: Plan: controlled cont eliquis cont metoprolol xl Plan: cont PT/OT Disposition - continued inpatient stay due to need to complete vancomycin dosing Admission and Anticipated Discharge Date Admission Date: August 29, 2021 Subjective Patient having some trouble getting confused trying to remember all the details about antibiotics. Then will skip to some other chronic medical problem completely unrelated and chronic. No fever, chills, dysuria or flank tenderness. Having difficulty with PT due to her toe fracture. She reports the boot she was brought was too small so she hasn't yet been mobile. Review of Systems Review of Systems: All systems reviewed & are unremarkable except as noted in HPI & below Physical Exam Constitutional: WD/WN, vitals as above Respiratory: normal respiratory effort, lungs clear to auscultation Cardiovascular: RRR, no murmur, no edema Gastrointestinal (Abdomen): normal bowel sounds, soft, nontender, no hepatosplenomegaly Psychiatric: A+Ox3, euthymic affect Results & Data Results & Data ([facility]) Vital Signs (Past 12 Hours) Vital Signs Temp Pulse Resp BP Pulse Ox 09/01/21 11:24 36.5 C 73 111/66 95 09/01/21 07:43 36.7 C 108 H 165/82 H 97 08/31/21 23:44 36.7 C 72 18 115/68 96 PG Care Time/CCT Total # of Minutes Spent Total Time Spent with Patient: Total time spent is greater than 50% in coordination of care (as documented) at patient's floor/unit and/or counseling patient: Coding Level of Care Code 30711 Subseq Hosp Care Lvl 2 Diagnoses Recurrent UTI (urinary tract infection) N39.0 Hyperparathyroidism E21.3 Hypertension I10 Coronary artery disease I25.10 Anemia D64.9 Multiple myeloma C90.01 Multiple myeloma remission status: in remission S/P IVC filter Z95.828 Shoulder pain, bilateral M25.511; M25.512 Hypothyroidism E03.9 Fracture of right great toe S92.401A DVT prophylaxis Z29.9 Persistent atrial fibrillation I48.19 (1) Multiple myeloma Multiple myeloma remission status: in remission Qualified Code(s): C90.01 - Multiple myeloma in remission
[2021-09-01] MEDS: POLYETHYLENE (MIRALAX) 17 GM PACK PO SCH (13:45)
[2021-09-01] MEDS: MIRTAZAPINE TAB 15 MG TAB PO SCH (20:19)
[2021-09-01] MEDS: levoFLOXacin/D5W 500 MG/100 ML BAG IV SCH (22:44)
[2021-09-02] MEDS ORDERED: LORazepam 0.5 MG/1 ML VIAL IV STA (02:54)
[2021-09-02] MEDS ORDERED: HALOPERIDOL LACTATE 5 MG/ML 1 ML VIAL IM STA (03:10)
[2021-09-02] MEDS: LEVOTHYROXINE SODIUM 75 MCG TABLET PO SCH (06:37)
[2021-09-02 06:46] LABS: Basophils # (auto) 0.02 K/uL (0-0.2); Basophils % (auto) 0.2 %; Eosinophils # (auto) 0.05 K/uL (0-0.5); Eosinophils % (auto) 0.6 %; Hematocrit (blood only) 29.8 % (37-47); Hemoglobin 9.8 g/dL (12.0-16.0); Immature Granulocytes # (auto) 0.06 K/uL (0.00-0.02); Immature Granulocytes % (auto) 0.7 %; Lymphocytes # (auto) 1.13 K/uL (1.2-3.4); Lymphocytes % (auto) 13.7 %; Mean Corpuscular Hemoglobin 31.3 pg (25-34); Mean Corpuscular Hgb Conc 32.9 g/dL (32-36); Mean Corpuscular Volume 95.2 fL (80-100); Mean Platelet Volume 10.4 fL (7.4-10.4); Monocytes # (auto) 0.93 K/uL (0.11-0.59); Monocytes % (auto) 11.3 %; Neutrophils # (auto) 6.07 K/uL (1.4-6.5); Neutrophils % (auto) 73.5 %; Platelet Count 258 K/uL (130-400); RDW Coefficient of Variation 14.1 % (11.5-14.5); Red Blood Count 3.13 M/uL (4.2-5.4); White Blood Count 8.26 K/uL (4.8-10.8)
[2021-09-02 07:02] LABS: BUN Creatinine Ratio 28.4 (10-20); Calcium 8.5 mg/dl (8.5-10.1); Creatinine Clr Calc Pharmacy 39.2 ml/min; Est GFR (African American) 56.9 ml/min; Est GFR (Non-African American) 49.1 ml/min; Potassium 3.5 mmol/L (3.5-5.1)
[2021-09-02] MEDS: LIDOCAINE 5% 1 PATCH TD SCH (07:43)
[2021-09-02] MEDS ORDERED: VANCOMYCIN HCL 1,000 MG in SODIUM CHLORIDE 0.9% 250 ML IV SCH (08:00)
[2021-09-02] MEDS: ACETAMINOPHEN 500 MG TAB PO SCH ×3 (09:30→20:18)
[2021-09-02] MEDS: amLODIPine BESYLATE 5 MG TAB PO SCH (09:30)
[2021-09-02] MEDS: busPIRone 7.5 MG TAB PO SCH ×3 (09:31→20:18)
[2021-09-02] MEDS: APIXABAN 2.5 MG TAB PO SCH ×2 (09:31→20:17)
[2021-09-02] MEDS: CALCITRIOL 0.25 MCG CAPSULE PO SCH (09:32)
[2021-09-02] MEDS: lisinopril 2.5 MG TAB PO SCH (09:35)
[2021-09-02] MEDS: FERROUS SULFATE 325 MG TAB PO SCH ×2 (09:35→20:17)
[2021-09-02] MEDS: GLUCOSAMINE SULFATE 500 MG CAP PO SCH (09:35)
[2021-09-02] MEDS: PANTOprazole 40 MG TAB PO SCH ×2 (09:36→20:18)
[2021-09-02] MEDS: CINACALCET HCL 30 MG TAB PO SCH ×2 (09:36→20:17)
[2021-09-02] MEDS: METOPROLOL SUCC 25MG EXT REL TAB PO SCH (09:36)
[2021-09-02] MEDS: POLYETHYLENE (MIRALAX) 17 GM PACK PO SCH (09:37)
[2021-09-02] MEDS: predniSONE 5 MG TAB PO SCH (09:38)
[2021-09-02] MEDS: POTASSIUM CHLORIDE CRTAB 20 MEQ TABCR PO SCH (10:47)
[2021-09-02] MEDS: CHOLECALCIFEROL 1,000 UNITS 25 MCG TAB PO SCH (11:36)
--- NOTE | 2021-09-02 16:06 | Hospitalist Progress Note ---
Date of Service September 02, 2021 Assessment & Plan (1) Recurrent UTI (urinary tract infection): Plan: Suspect baseline urinary incontinence could be setting her up for recurrent infection. PVR 50cc; thus, incomplete bladder emptying likely not contributing. recent CT abd/pelvis without anatomic abnormalities or obstructing stones. Urine cx with - * pseudomonas, pansensitive -- d/c cefepime, switched to Levaquin 500mg daily (08/31); plan 7 days in total of Rx --- today is day # 5 * enterococcus -- resistant to amp; sens to vanco and dapto - vanco IV, day #4; plan 7 days in total of Rx; switch to daptomycin today due to rising renal function. could consider methenamine for UTI prevention previously took rotating preventive abx but would not recommend such as she already has resistant pathogens (2) Chest pain: Plan: EKG without ischemic changes. Will trend troponins overnight to rule out IN but low suspicion of cardiac related pain at this time. (3) Hyperparathyroidism: Plan: Chronic. Calcium level mild at presentation - likely related to low intravascular volume. Calcium normalized with fluids. 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 (9) Shoulder pain, bilateral: (10) Hypothyroidism: Plan: Continue Synthroid 75mcg daily TSH 06/2021 wnl (11) Fracture of right great toe: Plan: nondisplaced Fx of the first toe, right foot Dr Valencia saw in consult - WBAT with stiff soled shoe in place (he ordered such) 25-OH vit D level low in 02/2021 -- repeat level in am (12) DVT prophylaxis: Plan: eliquis 2.5mg BID (13) Persistent atrial fibrillation: Plan: controlled cont eliquis cont metoprolol xl Plan: cont PT/OT Disposition - continued inpatient stay due to need to complete vancomycin dosing Admission and Anticipated Discharge Date Admission Date: August 29, 2021 Subjective Patient complaining of sudden onset chest pain today around 3:30pm. Relieved with nitro. Occurred after eating. Also helped when she burped. Occurred while lying still. History of CABG. She feels this is different to any pain she has had before including her heartburn. Center of her chest. No radiation. Review of Systems Review of Systems: All systems reviewed & are unremarkable except as noted in HPI & below Physical Exam Constitutional: WD/WN, vitals as above Respiratory: normal respiratory effort, lungs clear to auscultation Cardiovascular: RRR, no murmur, no edema Gastrointestinal (Abdomen): normal bowel sounds, soft, nontender, no hepatosplenomegaly Psychiatric: A+Ox3, euthymic affect Results & Data Results & Data ([facility]) Vital Signs (Past 12 Hours) Vital Signs Temp Pulse Pulse Resp BP Pulse Ox 09/02/21 15:33 79 146/75 H 09/02/21 15:31 79 139/83 97 09/02/21 15:06 36.5 C 82 20 127/70 95 09/02/21 07:19 36.7 C 79 16 146/72 H 95 PG Care Time/CCT Total # of Minutes Spent Total Time Spent with Patient: Total time spent is greater than 50% in coordination of care (as documented) at patient's floor/unit and/or counseling patient: Coding Level of Care Code 96292 Subseq Hosp Care Lvl 2 Diagnoses Recurrent UTI (urinary tract infection) N39.0 Hyperparathyroidism E21.3 Hypertension I10 Coronary artery disease I25.10 Anemia D64.9 Multiple myeloma C90.01 Multiple myeloma remission status: in remission S/P IVC filter Z95.828 Shoulder pain, bilateral M25.511; M25.512 Hypothyroidism E03.9 Fracture of right great toe S92.401A DVT prophylaxis Z29.9 Persistent atrial fibrillation I48.19 Chest pain R07.9 (1) Multiple myeloma Multiple myeloma remission status: in remission Qualified Code(s): C90.01 - Multiple myeloma in remission
[2021-09-02] MEDS: levoFLOXacin/D5W 250 MG/50 ML BAG IV SCH (18:00)
[2021-09-02] MEDS: MIRTAZAPINE TAB 15 MG TAB PO SCH (20:16)
[2021-09-03] MEDS: DAPTOmycin 400 MG in SYRINGE 0 ML IV SCH (05:54)
[2021-09-03] MEDS: LEVOTHYROXINE SODIUM 75 MCG TABLET PO SCH (05:54)
[2021-09-03] MEDS: PANTOprazole 40 MG TAB PO SCH ×2 (09:17→20:33)
[2021-09-03] MEDS: CHOLECALCIFEROL 1,000 UNITS 25 MCG TAB PO SCH (09:17)
[2021-09-03] MEDS: GLUCOSAMINE SULFATE 500 MG CAP PO SCH (09:17)
[2021-09-03] MEDS: lisinopril 2.5 MG TAB PO SCH (09:18)
[2021-09-03] MEDS: FUROSEMIDE 20 MG TAB PO SCH (09:18)
[2021-09-03] MEDS: busPIRone 7.5 MG TAB PO SCH ×3 (09:18→20:33)
[2021-09-03] MEDS: METOPROLOL SUCC 25MG EXT REL TAB PO SCH (09:19)
[2021-09-03] MEDS: CALCITRIOL 0.25 MCG CAPSULE PO SCH (09:19)
[2021-09-03] MEDS: amLODIPine BESYLATE 5 MG TAB PO SCH (09:19)
[2021-09-03] MEDS: FERROUS SULFATE 325 MG TAB PO SCH ×2 (09:20→20:34)
[2021-09-03] MEDS: predniSONE 5 MG TAB PO SCH (09:20)
[2021-09-03] MEDS: APIXABAN 2.5 MG TAB PO SCH ×2 (09:20→20:33)
[2021-09-03] MEDS: CINACALCET HCL 30 MG TAB PO SCH ×2 (09:20→20:33)
[2021-09-03] MEDS: LIDOCAINE 5% 1 PATCH TD SCH (09:21)
[2021-09-03] MEDS: POTASSIUM CHLORIDE CRTAB 20 MEQ TABCR PO SCH (09:35)
[2021-09-03] MEDS: ACETAMINOPHEN 500 MG TAB PO SCH ×3 (09:35→20:38)
[2021-09-03] MEDS: POLYETHYLENE (MIRALAX) 17 GM PACK PO SCH (09:35)
--- NOTE | 2021-09-03 12:19 | Electrocardiogram Report ---
Test Reason : Blood Pressure : / mmHG Vent. Rate : 075 BPM Atrial Rate : 156 BPM P-R Int : 000 ms QRS Dur : 088 ms QT Int : 398 ms P-R-T Axes : 000 002 018 degrees QTc Int : 444 ms Atrial fibrillation Abnormal ECG When compared with ECG of 29-AUG-2021 09:44, ST no longer depressed in Lateral leads Confirmed by Hussain Poole ([id number]) on 09/03/2021 12:18:51 PM Referred By: [facility] Confirmed By:Hussain Poole
[2021-09-03 15:10] LABS: BUN Creatinine Ratio 24.3 (10-20); Calcium 8.8 mg/dl (8.5-10.1); Creatinine Clr Calc Pharmacy 44.4 ml/min; Est GFR (African American) 66.2 ml/min; Est GFR (Non-African American) 57.1 ml/min; Potassium 4.4 mmol/L (3.5-5.1)
--- NOTE | 2021-09-03 15:43 | Hospitalist Progress Note ---
Date of Service September 03, 2021 Assessment & Plan (1) Recurrent UTI (urinary tract infection): Plan: Suspect baseline urinary incontinence could be setting her up for recurrent infection. PVR 50cc; thus, incomplete bladder emptying likely not contributing. recent CT abd/pelvis without anatomic abnormalities or obstructing stones. Urine cx with - * pseudomonas, pansensitive -- d/c cefepime, switched to Levaquin 500mg daily (08/31); plan 7 days in total of Rx --- today is day # 6 * enterococcus -- resistant to amp; sens to vanco and dapto - day #5; plan 7 days in total of Rx; switched to daptomycin due to rising Cr now coming down could consider methenamine for UTI prevention previously took rotating preventive abx but would not recommend such as she already has resistant pathogens (2) Acute encephalopathy: Plan: Not back to baseline per son. ?environmental ?repeat infections. Discontinue Ativan as likely caused her nightmares the previous night. Consider adjustments to BuSpar/mirtazapine as outpatient. (3) Chest pain: Plan: Resolved. Serial troponins negative. Suspect more GI in origin. Consider Carafate if recurs. (4) Hyperparathyroidism: Plan: Chronic. Calcium level mild at presentation - likely related to low intravascular volume. Calcium normalized with fluids. (5) Hypertension: Plan: Continue metoprolol, lisinopril, lasix, amlodipine Controlled (6) Coronary artery disease: Plan: no ischemic symptoms at this time (7) Anemia: Plan: stable H/H most recent Hb 10.1 follow with periodic cbc for stability (8) Multiple myeloma: Plan: Previously stress dosed earlier in admission. 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 Start vitamin D3 1000 units 09/02. (13) DVT prophylaxis: Plan: eliquis 2.5mg BID (14) Persistent atrial fibrillation: Plan: controlled cont eliquis cont metoprolol xl Plan: cont PT/OT Disposition - continued inpatient stay due to need to complete daptomycin Admission and Anticipated Discharge Date Admission Date: August 29, 2021 Subjective Doing better today. Chest pain resolved. Not yet had bowel movement however. Refused MiralAX yesterday but willing to take this today. Review of Systems Review of Systems: All systems reviewed & are unremarkable except as noted in HPI & below Physical Exam Constitutional: WD/WN, vitals as above Respiratory: normal respiratory effort, lungs clear to auscultation Cardiovascular: Rate/Rhythm: regular rate and + irregularly irregular Heart Sounds: no murmur Extremities: no calf tenderness and no pedal edema Gastrointestinal (Abdomen): normal bowel sounds, soft, nontender, no hepatosplenomegaly Psychiatric: A+Ox3, euthymic affect Results & Data Results & Data ([facility]) Vital Signs (Past 12 Hours) Vital Signs Temp Pulse Resp BP Pulse Ox 09/03/21 07:25 36.5 C 74 16 164/88 H 96 PG Care Time/CCT Total # of Minutes Spent Total Time Spent with Patient: Total time spent is greater than 50% in coordination of care (as documented) at patient's floor/unit and/or counseling patient: Coding Level of Care Code 52551 Subseq Hosp Care Lvl 2 Diagnoses Recurrent UTI (urinary tract infection) N39.0 Chest pain R07.9 Hyperparathyroidism E21.3 Hypertension I10 Coronary artery disease I25.10 Anemia D64.9 Multiple myeloma C90.01 Multiple myeloma remission status: in remission S/P IVC filter Z95.828 Shoulder pain, bilateral M25.511; M25.512 Hypothyroidism E03.9 Fracture of right great toe S92.401A DVT prophylaxis Z29.9 Persistent atrial fibrillation I48.19 Acute encephalopathy G93.40 (1) Multiple myeloma Multiple myeloma remission status: in remission Qualified Code(s): C90.01 - Multiple myeloma in remission
[2021-09-03] MEDS: levoFLOXacin/D5W 250 MG/50 ML BAG IV SCH (17:33)
[2021-09-03] MEDS: MIRTAZAPINE TAB 15 MG TAB PO SCH (20:33)
[2021-09-04] MEDS: LEVOTHYROXINE SODIUM 75 MCG TABLET PO SCH (05:56)
[2021-09-04] MEDS: DAPTOmycin 400 MG in SYRINGE 0 ML IV SCH (05:56)
[2021-09-04 07:09] LABS: Basophils # (auto) 0.04 K/uL (0-0.2); Basophils % (auto) 0.6 %; Eosinophils # (auto) 0.37 K/uL (0-0.5); Eosinophils % (auto) 5.2 %; Hematocrit (blood only) 31.2 % (37-47); Hemoglobin 10.3 g/dL (12.0-16.0); Immature Granulocytes % (auto) 1.4 %; Lymphocytes # (auto) 1.57 K/uL (1.2-3.4); Lymphocytes % (auto) 22.2 %; Mean Corpuscular Hemoglobin 30.8 pg (25-34); Mean Corpuscular Volume 93.4 fL (80-100); Mean Platelet Volume 10.2 fL (7.4-10.4); Monocytes # (auto) 0.71 K/uL (0.11-0.59); Monocytes % (auto) 10.1 %; Neutrophils # (auto) 4.27 K/uL (1.4-6.5); Neutrophils % (auto) 60.5 %; Platelet Count 268 K/uL (130-400); RDW Coefficient of Variation 14.2 % (11.5-14.5); RDW Standard Deviation 47.9 fL (36.4-46.3); Red Blood Count 3.34 M/uL (4.2-5.4); White Blood Count 7.06 K/uL (4.8-10.8)
[2021-09-04 07:38] LABS: BUN Creatinine Ratio 32.1 (10-20); Calcium 8.4 mg/dl (8.5-10.1); Creatinine Clr Calc Pharmacy 62.4 ml/min; Est GFR (African American) 92.3 ml/min; Est GFR (Non-African American) 79.7 ml/min; Potassium 3.3 mmol/L (3.5-5.1)
[2021-09-04] MEDS: PANTOprazole 40 MG TAB PO SCH ×2 (09:37→21:43)
[2021-09-04] MEDS: CINACALCET HCL 30 MG TAB PO SCH ×2 (09:37→21:42)
[2021-09-04] MEDS: POTASSIUM CHLORIDE CRTAB 20 MEQ TABCR PO SCH (09:38)
[2021-09-04] MEDS: predniSONE 5 MG TAB PO SCH (09:38)
[2021-09-04] MEDS: busPIRone 7.5 MG TAB PO SCH ×3 (09:38→21:42)
[2021-09-04] MEDS: FERROUS SULFATE 325 MG TAB PO SCH ×2 (09:38→21:42)
[2021-09-04] MEDS: amLODIPine BESYLATE 5 MG TAB PO SCH (09:38)
[2021-09-04] MEDS: APIXABAN 2.5 MG TAB PO SCH ×2 (09:38→21:42)
[2021-09-04] MEDS: CHOLECALCIFEROL 1,000 UNITS 25 MCG TAB PO SCH (09:39)
[2021-09-04] MEDS: lisinopril 2.5 MG TAB PO SCH (09:39)
[2021-09-04] MEDS: GLUCOSAMINE SULFATE 500 MG CAP PO SCH (09:39)
[2021-09-04] MEDS: METOPROLOL SUCC 25MG EXT REL TAB PO SCH (09:40)
[2021-09-04] MEDS: CALCITRIOL 0.25 MCG CAPSULE PO SCH (09:40)
[2021-09-04] MEDS: LIDOCAINE 5% 1 PATCH TD SCH (09:40)
[2021-09-04] MEDS: ACETAMINOPHEN 500 MG TAB PO SCH ×3 (09:51→21:45)
[2021-09-04] MEDS: POLYETHYLENE (MIRALAX) 17 GM PACK PO SCH (09:51)
[2021-09-04] MEDS ORDERED: POTASSIUM CHLORIDE CRTAB 20 MEQ TABCR PO STA (10:02)
--- NOTE | 2021-09-04 10:05 | Hospitalist Progress Note ---
Date of Service September 04, 2021 Assessment & Plan (1) Recurrent UTI (urinary tract infection): Plan: Suspect baseline urinary incontinence could be setting her up for recurrent infection. PVR 50cc; thus, incomplete bladder emptying likely not contributing. recent CT abd/pelvis without anatomic abnormalities or obstructing stones. Urine cx with - * pseudomonas, pansensitive -- d/c cefepime, switched to Levaquin 500mg daily (08/31); plan 7 days in total of Rx --- today is day # 7 * enterococcus -- resistant to amp; sens to vanco and dapto - day #6; plan 7 days in total of Rx; switched to daptomycin due to rising Cr now coming down could consider methenamine for UTI prevention previously took rotating preventive abx but would not recommend such as she already has resistant pathogens (2) Acute encephalopathy: Plan: Not back to baseline per son yesterday. ?environmental ?repeat infections. Discontinued Ativan as likely caused her nightmares the previous night. Consider adjustments to BuSpar/mirtazapine as outpatient. (3) Chest pain: Plan: Resolved. Serial troponins negative. Suspect more GI in origin. Consider Harper fate if recurs. (4) Hyperparathyroidism: Plan: Chronic. Calcium level mild at presentation - likely related to low intravascular volume. Calcium normalized with fluids. (5) Hypertension: Plan: Continue metoprolol, lisinopril, lasix, amlodipine Controlled (6) Coronary artery disease: Plan: no ischemic symptoms at this time (7) Anemia: Plan: stable H/H most recent Hb 10.3 follow with periodic cbc for stability (8) Multiple myeloma: Plan: Previously stress dosed steroids earlier in admission. 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 Start vitamin D3 1000 units 09/02. (13) DVT prophylaxis: Plan: eliquis 2.5mg BID (14) Persistent atrial fibrillation: Plan: controlled cont eliquis cont metoprolol succinate Plan: cont PT/OT Disposition - continued inpatient stay due to need to complete daptomycin. Bed hold at [facility] with [facility] but patient needs to improve as she is currently a max assist. May requires [facility] or inpatient rehab prior to return to [facility] Admission and Anticipated Discharge Date Admission Date: August 29, 2021 Supervising Physician Co-Signing Physician Notes Patient seen and examined, chart reviewed, case discussed with Sridhar Owens PA-C and I agree with the assessment and plan as above. Subjective Attending: Dr. Meza Patient seen and examined in room 388 bed 2. Patient in bed. No evidence of distress. Patient denies any fever, chills, sweats, rigors. She does have some disorientation and confusion. This appears to be dementia related. She states that she is at her [facility] assisted living. She understands that there is a bed hold for her there if she can improve her strength. She states that she is in a wheelchair there and "pedals with her feet". We had discussion regarding her for refusing physical therapy and the need for her to strengthen prior to being discharged to [facility]. Review of Systems Review of Systems: All systems reviewed & are unremarkable except as noted in Subjective Physical Exam Physical Exam: GENERAL : No acute distress EYES: No icterus, gaze conjugate NOSE: No evidence of epistaxis MOUTH: No lesions or candidiasis NECK: Supple LUNGS: CTA B/L, no wheezes, rales or rhonchi HEART: Irregular, irregular, rate controlled in the 80s ABDOMEN: Soft, NT, ND, BS Present EXTREMITIES: No LE edema, pedal pulses intact and equal bilaterally. No calf pain NEURO: A&OX3 Results & Data Results & Data ([facility]) Vital Signs (Past 12 Hours) Vital Signs Temp Pulse Resp BP Pulse Ox 09/04/21 07:25 36.7 C 79 20 156/84 H 96 09/03/21 22:34 36.4 C L 75 16 164/75 H 96 Laboratory Results 09/04/21 06:15 09/04/21 06:15 09/02/21 09/02/21 09/03/21 17:49 22:01 06:34 Troponin I < 0.015 < 0.015 < 0.015 09/03/21 10:26 Troponin I < 0.015 Diagnostic Findings No further diagnostics PG Care Time/CCT Total # of Minutes Spent Total Time Spent with Patient: Total time spent is greater than 50% in coordination of care (as documented) at patient's floor/unit and/or counseling patient: 20 minutes Coding Level of Care Code 74266 Subseq Hosp Care Lvl 2 Diagnoses Recurrent UTI (urinary tract infection) N39.0 Acute encephalopathy G93.40 Chest pain R07.9 Hyperparathyroidism E21.3 Hypertension I10 Coronary artery disease I25.10 Anemia D64.9 Multiple myeloma C90.01 Multiple myeloma remission status: in remission S/P IVC filter Z95.828 Shoulder pain, bilateral M25.511; M25.512 Hypothyroidism E03.9 Fracture of right great toe S92.401A DVT prophylaxis Z29.9 Persistent atrial fibrillation I48.19 Time Spent (min) 20 (1) Multiple myeloma Multiple myeloma remission status: in remission Qualified Code(s): C90.01 - Multiple myeloma in remission
[2021-09-04] MEDS: levoFLOXacin/D5W 250 MG/50 ML BAG IV SCH (18:11)
[2021-09-04] MEDS: MIRTAZAPINE TAB 15 MG TAB PO SCH (21:39)
[2021-09-05] MEDS: LEVOTHYROXINE SODIUM 75 MCG TABLET PO SCH (06:31)
[2021-09-05] MEDS: DAPTOmycin 400 MG in SYRINGE 0 ML IV SCH (06:31)
[2021-09-05 07:31] LABS: BUN Creatinine Ratio 23.6 (10-20); Calcium 8.4 mg/dl (8.5-10.1); Creatinine Clr Calc Pharmacy 51.9 ml/min; Est GFR (African American) 79.9 ml/min; Est GFR (Non-African American) 68.9 ml/min; Potassium 3.7 mmol/L (3.5-5.1)
[2021-09-05] MEDS: ACETAMINOPHEN 500 MG TAB PO SCH ×3 (08:36→21:17)
[2021-09-05] MEDS: FERROUS SULFATE 325 MG TAB PO SCH ×2 (08:37→21:17)
[2021-09-05] MEDS: lisinopril 2.5 MG TAB PO SCH (08:37)
[2021-09-05] MEDS: PANTOprazole 40 MG TAB PO SCH ×2 (08:39→21:17)
[2021-09-05] MEDS: CALCITRIOL 0.25 MCG CAPSULE PO SCH (08:39)
[2021-09-05] MEDS: predniSONE 5 MG TAB PO SCH (08:39)
[2021-09-05] MEDS: POTASSIUM CHLORIDE CRTAB 20 MEQ TABCR PO SCH (08:40)
[2021-09-05] MEDS: APIXABAN 2.5 MG TAB PO SCH ×2 (08:40→21:17)
[2021-09-05] MEDS: busPIRone 7.5 MG TAB PO SCH ×3 (08:40→21:17)
[2021-09-05] MEDS: CHOLECALCIFEROL 1,000 UNITS 25 MCG TAB PO SCH (08:40)
[2021-09-05] MEDS: CINACALCET HCL 30 MG TAB PO SCH ×2 (08:41→21:17)
[2021-09-05] MEDS: FUROSEMIDE 20 MG TAB PO SCH (08:41)
[2021-09-05] MEDS: amLODIPine BESYLATE 5 MG TAB PO SCH (08:41)
[2021-09-05] MEDS: GLUCOSAMINE SULFATE 500 MG CAP PO SCH (08:41)
[2021-09-05] MEDS: METOPROLOL SUCC 25MG EXT REL TAB PO SCH (08:41)
[2021-09-05] MEDS: LIDOCAINE 5% 1 PATCH TD SCH (08:42)
[2021-09-05] MEDS: POLYETHYLENE (MIRALAX) 17 GM PACK PO SCH (09:04)
--- NOTE | 2021-09-05 17:22 | Hospitalist Progress Note ---
Date of Service September 05, 2021 Assessment & Plan (1) Recurrent UTI (urinary tract infection): Plan: Suspect baseline urinary incontinence could be setting her up for recurrent infection. PVR 50cc; thus, incomplete bladder emptying likely not contributing. recent CT abd/pelvis without anatomic abnormalities or obstructing stones. Urine cx with - * pseudomonas, pansensitive -- d/c cefepime, switched to Levaquin 500mg daily (08/31); plan 7 days in total of Rx --- today is day # 7 * enterococcus -- resistant to amp; sens to vanco and dapto - day #7; plan 7 days in total of Rx; switched to daptomycin due to rising Cr now coming down * Discontinue antibiotics today could consider methenamine for UTI prevention previously took rotating preventive abx but would not recommend such as she already has resistant pathogens (2) Acute encephalopathy: Plan: Not back to baseline per son yesterday. ?environmental ?repeat infections. Discontinued Ativan as likely caused her nightmares the previous night. Consider adjustments to BuSpar/mirtazapine as outpatient. (3) Chest pain: Plan: Resolved. Serial troponins negative. Suspect more GI in origin. Consider Carafate if recurs. (4) Hyperparathyroidism: Plan: Chronic. Calcium level mild at presentation - likely related to low intravascular volume. Calcium normalized with fluids. (5) Hypertension: Plan: Continue metoprolol, lisinopril, lasix, amlodipine Controlled (6) Coronary artery disease: Plan: no ischemic symptoms at this time (7) Anemia: Plan: stable H/H most recent Hb 10.3 follow with periodic cbc for stability (8) Multiple myeloma: Plan: Previously stress dosed steroids earlier in admission. 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 Start vitamin D3 1000 units 09/02. (13) DVT prophylaxis: Plan: eliquis 2.5mg BID (14) Persistent atrial fibrillation: Plan: controlled cont eliquis cont metoprolol succinate Plan: cont PT/OT Disposition -patient medically ready for discharge. All antibiotics have been completed. Bed hold at [facility] with [facility] but patient needs to improve as she is currently a max assist. May requires [facility] or inpatient rehab prior to return to [facility] Admission and Anticipated Discharge Date Admission Date: August 29, 2021 Subjective Attending: Dr. Meza Patient seen and examined in bed. She was sleeping on my arrival. She was easily aroused. She has no acute complaints. Review of Systems Review of Systems: All systems reviewed & are unremarkable except as noted in Subjective Physical Exam Physical Exam: GENERAL : No acute distress EYES: No icterus, gaze conjugate NOSE: No evidence of epistaxis MOUTH: No lesions or candidiasis NECK: Supple LUNGS: CTA B/L, no wheezes, rales or rhonchi HEART: Irregular, irregular, rate controlled in the 70s ABDOMEN: Soft, NT, ND, BS Present EXTREMITIES: No LE edema, pedal pulses intact NEURO: A&OX3 Results & Data Results & Data ([facility]) Vital Signs (Past 12 Hours) Vital Signs Temp Pulse Pulse Resp BP Pulse Ox 09/05/21 15:59 37 C 75 16 120/65 96 09/05/21 07:06 36.6 C 71 16 149/76 H 97 Laboratory Results 09/04/21 06:15 09/05/21 06:21 Diagnostic Findings No new diagnostics PG Care Time/CCT Total # of Minutes Spent Total Time Spent with Patient: Total time spent is greater than 50% in coordination of care (as documented) at patient's floor/unit and/or counseling patient: Coding Level of Care Code 05073 Subseq Hosp Care Lvl 1 Diagnoses Recurrent UTI (urinary tract infection) N39.0 Acute encephalopathy G93.40 Chest pain R07.9 Hyperparathyroidism E21.3 Hypertension I10 Coronary artery disease I25.10 Anemia D64.9 Multiple myeloma C90.01 Multiple myeloma remission status: in remission S/P IVC filter Z95.828 Shoulder pain, bilateral M25.511; M25.512 Hypothyroidism E03.9 Fracture of right great toe S92.401A DVT prophylaxis Z29.9 Persistent atrial fibrillation I48.19 (1) Multiple myeloma Multiple myeloma remission status: in remission Qualified Code(s): C90.01 - Multiple myeloma in remission
[2021-09-05] MEDS: MIRTAZAPINE TAB 15 MG TAB PO SCH (21:17)
[2021-09-06] MEDS: LEVOTHYROXINE SODIUM 75 MCG TABLET PO SCH (06:28)
[2021-09-06] MEDS: amLODIPine BESYLATE 5 MG TAB PO SCH (09:44)
[2021-09-06] MEDS: APIXABAN 2.5 MG TAB PO SCH ×2 (09:45→20:07)
[2021-09-06] MEDS: busPIRone 7.5 MG TAB PO SCH ×3 (09:55→20:07)
[2021-09-06] MEDS: CALCITRIOL 0.25 MCG CAPSULE PO SCH (09:56)
[2021-09-06] MEDS: FERROUS SULFATE 325 MG TAB PO SCH ×2 (09:57→20:08)
[2021-09-06] MEDS: CINACALCET HCL 30 MG TAB PO SCH ×2 (09:57→20:07)
[2021-09-06] MEDS: CHOLECALCIFEROL 1,000 UNITS 25 MCG TAB PO SCH (09:57)
[2021-09-06] MEDS: GLUCOSAMINE SULFATE 500 MG CAP PO SCH (09:58)
[2021-09-06] MEDS: LIDOCAINE 5% 1 PATCH TD SCH (10:05)
[2021-09-06] MEDS: METOPROLOL SUCC 25MG EXT REL TAB PO SCH (10:06)
[2021-09-06] MEDS: lisinopril 2.5 MG TAB PO SCH (10:06)
[2021-09-06] MEDS: PANTOprazole 40 MG TAB PO SCH ×2 (10:07→20:09)
[2021-09-06] MEDS: POTASSIUM CHLORIDE CRTAB 20 MEQ TABCR PO SCH (10:07)
[2021-09-06] MEDS: predniSONE 5 MG TAB PO SCH (10:08)
[2021-09-06] MEDS: ACETAMINOPHEN 500 MG TAB PO SCH ×3 (10:18→20:06)
--- NOTE | 2021-09-06 12:46 | Hospitalist Progress Note ---
Date of Service September 06, 2021 Assessment & Plan (1) Recurrent UTI (urinary tract infection): Plan: Suspect baseline urinary incontinence could be setting her up for recurrent infection. PVR 50cc; thus, incomplete bladder emptying likely not contributing. recent CT abd/pelvis without anatomic abnormalities or obstructing stones. Urine cx with - * pseudomonas, pansensitive -- d/c cefepime, switched to Levaquin 500mg daily (08/31); plan 7 days in total of Rx --- today is day # 7 * enterococcus -- resistant to amp; sens to vanco and dapto - day #7; plan 7 days in total of Rx; switched to daptomycin due to rising Cr now coming down * Completed course of all antibiotics 09/05/2021 Could consider methenamine for UTI prevention as an outpatient. Will not introduce any additional medications at this time Previously took rotating preventive abx but would not recommend such as she already has resistant pathogens (2) Acute encephalopathy: Plan: Not back to baseline per son yesterday. ?environmental ?repeat infections. Discontinued Ativan as likely caused her nightmares the previous night. Consider adjustments to BuSpar/mirtazapine as outpatient. Patient continues to refuse physical therapy and activity with nursing (3) Chest pain: Plan: Resolved. Serial troponins negative. Suspect more GI in origin. Consider Carafate if recurs. (4) Hyperparathyroidism: Plan: Chronic. Calcium level mild at presentation - likely related to low intravascular volume. Calcium normalized with fluids. (5) Hypertension: Plan: Continue metoprolol, lisinopril, lasix, amlodipine Controlled (6) Coronary artery disease: Plan: no ischemic symptoms at this time (7) Anemia: Plan: stable H/H Check CBC tomorrow morning (8) Multiple myeloma: Plan: Previously stress dosed steroids earlier in admission. 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 Start vitamin D3 1000 units 09/02. (13) DVT prophylaxis: Plan: eliquis 2.5mg BID (14) Persistent atrial fibrillation: Plan: controlled cont eliquis cont metoprolol succinate Plan: cont PT/OT as tolerated Disposition -patient medically ready for discharge. All antibiotics have been completed. Bed hold at [facility] with [facility] but patient needs to improve as she is currently a max assist. May requires long term or inpatient rehab prior to return to [facility] Admission and Anticipated Discharge Date Admission Date: August 29, 2021 Subjective Attending: Dr. Meza Patient seen and examined at bedside. She is quite upset that she is not getting more physical therapy. Reviewed this with nursing who reported that she is refusing any activity. Patient denies any new pain. She has no fever or chills. She is quite tearful during our discussion. She has no other acute complaints. Review of Systems Review of Systems: All systems reviewed & are unremarkable except as noted in Subjective Physical Exam Physical Exam: GENERAL : No acute distress EYES: No icterus, gaze conjugate NOSE: No evidence of epistaxis MOUTH: No lesions or candidiasis NECK: Supple LUNGS: CTA B/L, no wheezes, rales or rhonchi HEART: Irregular, irregular, rate controlled in the 70s ABDOMEN: Soft, NT, ND, BS Present EXTREMITIES: No LE edema, pedal pulses intact and equal bilaterally. Can move all toes although fractured toe is painful with movement and resistance. NEURO: A&OX3 Results & Data Results & Data ([facility]) Vital Signs (Past 12 Hours) Vital Signs Temp Pulse Resp BP Pulse Ox 09/06/21 07:00 36.8 C 80 20 157/80 H 95 Laboratory Results 09/04/21 06:15 09/05/21 06:21 Diagnostic Findings No further diagnostics PG Care Time/CCT Total # of Minutes Spent Total Time Spent with Patient: Total time spent is greater than 50% in coordination of care (as documented) at patient's floor/unit and/or counseling patient: 20 minutes Coding Level of Care Code 11484 Subseq Hosp Care Lvl 1 Diagnoses Recurrent UTI (urinary tract infection) N39.0 Acute encephalopathy G93.40 Chest pain R07.9 Hyperparathyroidism E21.3 Hypertension I10 Coronary artery disease I25.10 Anemia D64.9 Multiple myeloma C90.01 Multiple myeloma remission status: in remission S/P IVC filter Z95.828 Shoulder pain, bilateral M25.511; M25.512 Hypothyroidism E03.9 Fracture of right great toe S92.401A DVT prophylaxis Z29.9 Persistent atrial fibrillation I48.19 Time Spent (min) 20 (1) Multiple myeloma Multiple myeloma remission status: in remission Qualified Code(s): C90.01 - Multiple myeloma in remission
[2021-09-06] MEDS: POLYETHYLENE (MIRALAX) 17 GM PACK PO SCH (19:09)
[2021-09-06] MEDS: MIRTAZAPINE TAB 15 MG TAB PO SCH (20:08)
[2021-09-07] MEDS: LEVOTHYROXINE SODIUM 75 MCG TABLET PO SCH (06:23)
[2021-09-07 07:00] LABS: Hematocrit (blood only) 32.3 % (37-47); Hemoglobin 10.7 g/dL (12.0-16.0); Mean Corpuscular Hemoglobin 31.4 pg (25-34); Mean Corpuscular Hgb Conc 33.1 g/dL (32-36); Mean Corpuscular Volume 94.7 fL (80-100); Platelet Count 270 K/uL (130-400); RDW Coefficient of Variation 14.6 % (11.5-14.5); RDW Standard Deviation 50.2 fL (36.4-46.3); Red Blood Count 3.41 M/uL (4.2-5.4); White Blood Count 6.56 K/uL (4.8-10.8)
[2021-09-07 07:16] LABS: BUN Creatinine Ratio 27.7 (10-20); Calcium 8.3 mg/dl (8.5-10.1); Creatinine Clr Calc Pharmacy 54.7 ml/min; Est GFR (African American) 85.2 ml/min; Est GFR (Non-African American) 73.5 ml/min; Magnesium 1.9 mg/dl (1.8-2.4); Potassium 3.7 mmol/L (3.5-5.1)
[2021-09-07] MEDS: amLODIPine BESYLATE 5 MG TAB PO SCH (09:47)
[2021-09-07] MEDS: busPIRone 7.5 MG TAB PO SCH ×3 (09:48→20:40)
[2021-09-07] MEDS: APIXABAN 2.5 MG TAB PO SCH ×2 (09:49→20:40)
[2021-09-07] MEDS: CALCITRIOL 0.25 MCG CAPSULE PO SCH (09:50)
[2021-09-07] MEDS: CHOLECALCIFEROL 1,000 UNITS 25 MCG TAB PO SCH (09:51)
[2021-09-07] MEDS: FERROUS SULFATE 325 MG TAB PO SCH ×2 (09:53→20:40)
[2021-09-07] MEDS: CINACALCET HCL 30 MG TAB PO SCH ×2 (09:53→20:40)
[2021-09-07] MEDS: GLUCOSAMINE SULFATE 500 MG CAP PO SCH (09:54)
[2021-09-07] MEDS: METOPROLOL SUCC 25MG EXT REL TAB PO SCH (09:54)
[2021-09-07] MEDS: lisinopril 2.5 MG TAB PO SCH (09:55)
[2021-09-07] MEDS: PANTOprazole 40 MG TAB PO SCH ×2 (09:55→20:40)
[2021-09-07] MEDS: POTASSIUM CHLORIDE CRTAB 20 MEQ TABCR PO SCH (09:56)
[2021-09-07] MEDS: predniSONE 5 MG TAB PO SCH (09:57)
[2021-09-07] MEDS: LIDOCAINE 5% 1 PATCH TD SCH (10:03)
[2021-09-07] MEDS: ACETAMINOPHEN 500 MG TAB PO SCH ×3 (10:10→19:04)
[2021-09-07] MEDS: POLYETHYLENE (MIRALAX) 17 GM PACK PO SCH (11:46)
--- NOTE | 2021-09-07 19:40 | Hospitalist Progress Note ---
Date of Service September 07, 2021 Assessment & Plan (1) Recurrent UTI (urinary tract infection): Plan: Suspect baseline urinary incontinence could be setting her up for recurrent infection. PVR 50cc; thus, incomplete bladder emptying likely not contributing. recent CT abd/pelvis without anatomic abnormalities or obstructing stones. Urine cx with - * pseudomonas, pansensitive -- d/c cefepime, switched to Levaquin 500mg daily (08/31); completed 7 days in total of Rx * enterococcus -- resistant to amp; sens to vanco and dapto -completed 7 days of antibiotic therapy and total total of Rx; switched to daptomycin due to rising Cr now coming down * Completed course of all antibiotics Could consider methenamine for UTI prevention as an outpatient. Will not introduce any additional medications at this time Previously took rotating preventive abx but would not recommend such as she already has resistant pathogens (2) Acute encephalopathy: Plan: Discontinued Ativan as likely caused her nightmares although patient continues to complain of nightmares each night Consider adjustments to BuSpar/mirtazapine as outpatient. Patient continues to refuse physical therapy and activity with nursing (3) Chest pain: Plan: Resolved. Serial troponins negative. Suspect more GI in origin. (4) Hyperparathyroidism: Plan: Chronic. Calcium level mild at presentation - likely related to low intravascular volume. Calcium normalized with fluids. (5) Hypertension: Plan: Continue metoprolol, lisinopril, lasix, amlodipine Controlled (6) Coronary artery disease: Plan: no ischemic symptoms at this time (7) Anemia: Plan: stable H/H (8) Multiple myeloma: Plan: Previously stress dosed steroids earlier in admission. 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 Start vitamin D3 1000 units 09/02. (13) DVT prophylaxis: Plan: eliquis 2.5mg BID (14) Persistent atrial fibrillation: Plan: controlled cont eliquis cont metoprolol succinate Plan: cont PT/OT as tolerated Disposition -patient medically ready for discharge. All antibiotics have been completed. Bed hold at [facility] with [facility] but patient needs to improve as she is currently a max assist. May requires long term or inpatient rehab prior to return to [facility] Admission and Anticipated Discharge Date Admission Date: August 29, 2021 Subjective Attending: Dr. Meza Patient seen and examined. She is sitting in bedside chair. Still with much trepidation regarding safety with standing and sitting. She reports that she trust the staff at [facility] and is hesitant to undergo physical therapy or moving about with other staff here the hospital. Reassured her that the staff were fully trained here and that she could trust them. Son was also at bedside today trying to convince her to be more active. Nursing reported that she was minimal assist to move from the bed to the chair today. Patient denies any fever. No nausea or vomiting. No diarrhea. She has no acute complaints. Review of Systems Review of Systems: All systems reviewed & are unremarkable except as noted in Subjective Physical Exam Physical Exam: GENERAL : No acute distress. Pleasant. Very conversational. EYES: No icterus, gaze conjugate NOSE: No evidence of epistaxis MOUTH: No lesions or candidiasis NECK: Supple LUNGS: CTA B/L, no wheezes, rales or rhonchi HEART: Irregular, irregular, rate controlled ABDOMEN: Soft, NT, ND, BS Present. No tenderness to deep palpation. EXTREMITIES: No LE edema, pedal pulses intact and equal bilaterally. NEURO: A&OX3 Results & Data Results & Data ([facility]) Vital Signs (Past 12 Hours) Vital Signs Temp Pulse Resp BP Pulse Ox 09/07/21 16:00 37 C 66 20 107/63 96 09/07/21 07:35 37.1 C 72 18 145/80 H 97 Laboratory Results 09/07/21 06:30 09/07/21 06:30 Diagnostic Findings No further diagnostic imaging PG Care Time/CCT Total # of Minutes Spent Total Time Spent with Patient: Total time spent is greater than 50% in coordination of care (as documented) at patient's floor/unit and/or counseling patient:20 Coding Level of Care Code 38908 Subseq Hosp Care Lvl 1 Diagnoses Recurrent UTI (urinary tract infection) N39.0 Acute encephalopathy G93.40 Chest pain R07.9 Hyperparathyroidism E21.3 Hypertension I10 Coronary artery disease I25.10 Anemia D64.9 Multiple myeloma C90.01 Multiple myeloma remission status: in remission S/P IVC filter Z95.828 Shoulder pain, bilateral M25.511; M25.512 Hypothyroidism E03.9 Fracture of right great toe S92.401A DVT prophylaxis Z29.9 Persistent atrial fibrillation I48.19 Time Spent (min) 20 (1) Multiple myeloma Multiple myeloma remission status: in remission Qualified Code(s): C90.01 - Multiple myeloma in remission
[2021-09-07] MEDS: MIRTAZAPINE TAB 15 MG TAB PO SCH (20:41)
[2021-09-08] MEDS: LEVOTHYROXINE SODIUM 75 MCG TABLET PO SCH (05:14)
[2021-09-08] MEDS: APIXABAN 2.5 MG TAB PO SCH ×2 (08:22→21:04)
[2021-09-08] MEDS: busPIRone 7.5 MG TAB PO SCH ×3 (08:22→21:03)
[2021-09-08] MEDS: FUROSEMIDE 20 MG TAB PO SCH (08:22)
[2021-09-08] MEDS: amLODIPine BESYLATE 5 MG TAB PO SCH (08:22)
[2021-09-08] MEDS: CINACALCET HCL 30 MG TAB PO SCH ×2 (08:22→21:03)
[2021-09-08] MEDS: lisinopril 2.5 MG TAB PO SCH (08:22)
[2021-09-08] MEDS: GLUCOSAMINE SULFATE 500 MG CAP PO SCH (08:22)
[2021-09-08] MEDS: predniSONE 5 MG TAB PO SCH (08:22)
[2021-09-08] MEDS: METOPROLOL SUCC 25MG EXT REL TAB PO SCH (08:23)
[2021-09-08] MEDS: PANTOprazole 40 MG TAB PO SCH ×2 (08:23→21:02)
[2021-09-08] MEDS: POTASSIUM CHLORIDE CRTAB 20 MEQ TABCR PO SCH (08:23)
[2021-09-08] MEDS: FERROUS SULFATE 325 MG TAB PO SCH ×2 (08:23→21:02)
[2021-09-08] MEDS: CHOLECALCIFEROL 1,000 UNITS 25 MCG TAB PO SCH (08:23)
[2021-09-08] MEDS: CALCITRIOL 0.25 MCG CAPSULE PO SCH (08:23)
[2021-09-08] MEDS: LIDOCAINE 5% 1 PATCH TD SCH (08:24)
[2021-09-08] MEDS: POLYETHYLENE (MIRALAX) 17 GM PACK PO SCH (08:26)
[2021-09-08] MEDS: ACETAMINOPHEN 500 MG TAB PO SCH ×3 (08:26→21:00)
--- NOTE | 2021-09-08 20:23 | Hospitalist Progress Note ---
Date of Service September 08, 2021 Assessment & Plan (1) Recurrent UTI (urinary tract infection): Plan: Suspect baseline urinary incontinence could be setting her up for recurrent infection. PVR 50cc; thus, incomplete bladder emptying likely not contributing. recent CT abd/pelvis without anatomic abnormalities or obstructing stones. Urine cx with - * pseudomonas, pansensitive -- d/c cefepime, switched to Levaquin 500mg daily (08/31); completed 7 days in total of Rx * enterococcus -- resistant to amp; sens to vanco and dapto -completed 7 days of antibiotic therapy and total total of Rx; switched to daptomycin due to rising Cr now coming down * Completed course of all antibiotics Could consider methenamine for UTI prevention as an outpatient. Will not introduce any additional medications at this time Previously took rotating preventive abx but would not recommend such as she already has resistant pathogens (2) Acute encephalopathy: Plan: Discontinued Ativan as likely caused her nightmares although Consider adjustments to BuSpar/mirtazapine as outpatient. Patient continues to refuse physical therapy and activity with nursing both her son and I encouraged her to have physical therapy on 09 September (3) Chest pain: Plan: Resolved. Serial troponins negative. Suspect more GI in origin. (4) Hyperparathyroidism: Plan: Chronic. Calcium level mild at presentation - likely related to low intravascular volume. Calcium normalized with fluids. (5) Hypertension: Plan: Continue metoprolol, lisinopril, lasix, amlodipine Controlled (6) Coronary artery disease: Plan: no ischemic symptoms at this time (7) Anemia: Plan: stable H/H (8) Multiple myeloma: Plan: Previously stress dosed steroids earlier in admission. 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 Start vitamin D3 1000 units 09/02. (13) DVT prophylaxis: Plan: eliquis 2.5mg BID (14) Persistent atrial fibrillation: Plan: controlled cont eliquis cont metoprolol succinate Admission and Anticipated Discharge Date Admission Date: August 29, 2021 Subjective Patient seen and examined. She is sitting in bedside chair. Her son is in the room as of large concerns regarding safety with standing and sitting. She reports that she trust the staff at [facility] and is hesitant to undergo physical therapy or moving about with other staff here the hospital. Reassured her that the staff were fully trained here and that she could trust them. Son was also at bedside today trying to convince her to be more active. Review of Systems Review of Systems: Mild distress and fatigue no headache, no visual changes no speech or swallowing issues no chest pain, pressure or palpitations no shortness of breath, cough or wheezes no abdominal pain, nausea or vomiting, diarrhea or constipation no dysuria, hematuria or frequency no focal joint pain or swelling no back pain, CVA tenderness or radicular pain no bruising, bleeding or rashes Patient complains of overall being significantly weak with no other focal complaints no complaints of anxiety or depression.. Physical Exam Physical Exam: The patient appeared well nourished and normally developed. Vital signs as documented. Head exam is normocephalic atraumatic Neck is without JVD, thyromegaly, or carotid bruits. Lungs are clear to auscultation, no focal loss of breath sounds Cardiac exam, Rhythm is regular.. No murmurs, rubs or gallops. Abdominal exam reveals normal bowel sounds, soft non tender, no masses Extremities are nonedematous and both pedal pulses are present Neurologic exam is alert and oriented, no focal loss of strength or sensation she can move about in bed well but she cannot sit or stand without significant assistance. Skin is without bruises or rashes Psychologically is without concerns for anxiety or depression Results & Data Results & Data ([facility]) Vital Signs (Past 12 Hours) Vital Signs Temp Pulse Resp BP Pulse Ox 09/08/21 16:00 98.6 F 74 18 112/58 L 97 PG Care Time/CCT Total # of Minutes Spent Total Time Spent with Patient: Total time spent is greater than 50% in coordination of care (as documented) at patient's floor/unit and/or counseling patient: Coding Level of Care Code 12616 Subseq Hosp Care Lvl 2 Diagnoses Recurrent UTI (urinary tract infection) N39.0 Acute encephalopathy G93.40 Chest pain R07.9 Hyperparathyroidism E21.3 Hypertension I10 Coronary artery disease I25.10 Anemia D64.9 Multiple myeloma C90.01 Multiple myeloma remission status: in remission S/P IVC filter Z95.828 Shoulder pain, bilateral M25.511; M25.512 Hypothyroidism E03.9 Fracture of right great toe S92.401A DVT prophylaxis Z29.9 Persistent atrial fibrillation I48.19 (1) Multiple myeloma Multiple myeloma remission status: in remission Qualified Code(s): C90.01 - Multiple myeloma in remission
[2021-09-08] MEDS: MIRTAZAPINE TAB 15 MG TAB PO SCH (21:01)
[2021-09-09] MEDS: LEVOTHYROXINE SODIUM 75 MCG TABLET PO SCH (06:13)
[2021-09-09] MEDS: APIXABAN 2.5 MG TAB PO SCH ×2 (08:01→21:11)
[2021-09-09] MEDS: busPIRone 7.5 MG TAB PO SCH ×3 (08:01→21:10)
[2021-09-09] MEDS: METOPROLOL SUCC 25MG EXT REL TAB PO SCH (08:02)
[2021-09-09] MEDS: PANTOprazole 40 MG TAB PO SCH ×2 (08:02→21:10)
[2021-09-09] MEDS: CINACALCET HCL 30 MG TAB PO SCH ×2 (08:02→21:10)
[2021-09-09] MEDS: amLODIPine BESYLATE 5 MG TAB PO SCH (08:02)
[2021-09-09] MEDS: FERROUS SULFATE 325 MG TAB PO SCH ×2 (08:02→21:11)
[2021-09-09] MEDS: CALCITRIOL 0.25 MCG CAPSULE PO SCH (08:03)
[2021-09-09] MEDS: CHOLECALCIFEROL 1,000 UNITS 25 MCG TAB PO SCH (08:03)
[2021-09-09] MEDS: lisinopril 2.5 MG TAB PO SCH (08:04)
[2021-09-09] MEDS: POTASSIUM CHLORIDE CRTAB 20 MEQ TABCR PO SCH (08:04)
[2021-09-09] MEDS: predniSONE 5 MG TAB PO SCH (08:04)
[2021-09-09] MEDS: GLUCOSAMINE SULFATE 500 MG CAP PO SCH (08:04)
[2021-09-09] MEDS: LIDOCAINE 5% 1 PATCH TD SCH (08:05)
[2021-09-09] MEDS: POLYETHYLENE (MIRALAX) 17 GM PACK PO SCH (08:07)
[2021-09-09] MEDS: ACETAMINOPHEN 500 MG TAB PO SCH ×3 (08:14→21:10)
[2021-09-09] MEDS: HYDROCORTISONE SOD 50 MG in SYRINGE 0 ML IV SCH ×3 (09:05→21:12)
--- NOTE | 2021-09-09 17:47 | Hospitalist Progress Note ---
Date of Service September 09, 2021 Assessment & Plan (1) Recurrent UTI (urinary tract infection): Plan: Suspect baseline urinary incontinence could be setting her up for recurrent infection. PVR 50cc; thus, incomplete bladder emptying likely not contributing. recent CT abd/pelvis without anatomic abnormalities or obstructing stones. Urine cx with - * pseudomonas, pansensitive -- d/c cefepime, switched to Levaquin 500mg daily (08/31); completed 7 days in total of Rx * enterococcus -- resistant to amp; sens to vanco and dapto -completed 7 days of antibiotic therapy and total total of Rx; switched to daptomycin due to rising Cr now coming down * Completed course of all antibiotics Could consider methenamine for UTI prevention as an outpatient. Will not introduce any additional medications at this time Previously took rotating preventive abx but would not recommend such as she already has resistant pathogens (2) Acute encephalopathy: Plan: Discontinued Ativan as likely caused her nightmares although Consider adjustments to BuSpar/mirtazapine as outpatient. with weakness did consider the fact that she is on daily prednisone 5 mg, will try higher doses of steroids and see if it makes a difference (3) Chest pain: Plan: Resolved. Serial troponins negative. Suspect more GI in origin. (4) Hyperparathyroidism: Plan: Chronic. Calcium level mild at presentation - likely related to low intravascular volume. Calcium normalized with fluids. (5) Hypertension: Plan: Continue metoprolol, lisinopril, lasix, amlodipine Controlled (6) Coronary artery disease: Plan: no ischemic symptoms at this time (7) Anemia: Plan: stable H/H (8) Multiple myeloma: Plan: Previously stress dosed steroids earlier in admission. 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 Start vitamin D3 1000 units 09/02. (13) DVT prophylaxis: Plan: eliquis 2.5mg BID (14) Persistent atrial fibrillation: Plan: controlled cont eliquis cont metoprolol succinate Admission and Anticipated Discharge Date Admission Date: August 29, 2021 Subjective Patient seen and examined. She is feeling a little bit better was given steroid iv in case her chronic prednisone had her in a relative steroid deficient state during stressors there is discussion of snf transition this week but family remains concerned that she is too weak to move there Review of Systems Review of Systems: Mild distress and fatigue no headache, no visual changes no speech or swallowing issues no chest pain, pressure or palpitations no shortness of breath, cough or wheezes no abdominal pain, nausea or vomiting, diarrhea or constipation no dysuria, hematuria or frequency no focal joint pain or swelling no back pain, CVA tenderness or radicular pain no bruising, bleeding or rashes Patient complains of overall being significantly weak with no other focal complaints no complaints of anxiety or depression.. Physical Exam Physical Exam: The patient appeared well nourished and normally developed. Vital signs as documented. Head exam is normocephalic atraumatic Neck is without JVD, thyromegaly, or carotid bruits. Lungs are clear to auscultation, no focal loss of breath sounds Cardiac exam, Rhythm is regular.. No murmurs, rubs or gallops. Abdominal exam reveals normal bowel sounds, soft non tender, no masses Extremities are nonedematous and both pedal pulses are present Neurologic exam is alert and oriented, no focal loss of strength or sensation she can move about in bed well but she cannot sit or stand without significant assistance. Skin is without bruises or rashes Psychologically is without concerns for anxiety or depression Results & Data Results & Data ([facility]) Vital Signs (Past 12 Hours) Vital Signs Temp Pulse Resp BP Pulse Ox 09/09/21 14:49 99.0 F 68 18 119/70 97 09/09/21 07:48 97.7 F 75 17 155/74 H 97 PG Care Time/CCT Total # of Minutes Spent Total Time Spent with Patient: Total time spent is greater than 50% in coor dination of care (as documented) at patient's floor/unit and/or counseling patient: Coding Level of Care Code 77830 Subseq Hosp Care Lvl 2 Diagnoses Recurrent UTI (urinary tract infection) N39.0 Acute encephalopathy G93.40 Chest pain R07.9 Hyperparathyroidism E21.3 Hypertension I10 Coronary artery disease I25.10 Anemia D64.9 Multiple myeloma C90.01 Multiple myeloma remission status: in remission S/P IVC filter Z95.828 Shoulder pain, bilateral M25.511; M25.512 Hypothyroidism E03.9 Fracture of right great toe S92.401A DVT prophylaxis Z29.9 Persistent atrial fibrillation I48.19 (1) Multiple myeloma Multiple myeloma remission status: in remission Qualified Code(s): C90.01 - Multiple myeloma in remission
[2021-09-09] MEDS: MIRTAZAPINE TAB 15 MG TAB PO SCH (21:11)
[2021-09-10] MEDS: LEVOTHYROXINE SODIUM 75 MCG TABLET PO SCH (05:05)
[2021-09-10] MEDS: CINACALCET HCL 30 MG TAB PO SCH ×2 (08:59→21:07)
[2021-09-10] MEDS: amLODIPine BESYLATE 5 MG TAB PO SCH (08:59)
[2021-09-10] MEDS: METOPROLOL SUCC 25MG EXT REL TAB PO SCH (08:59)
[2021-09-10] MEDS: APIXABAN 2.5 MG TAB PO SCH ×2 (08:59→21:06)
[2021-09-10] MEDS: PANTOprazole 40 MG TAB PO SCH ×2 (09:00→21:08)
[2021-09-10] MEDS: FERROUS SULFATE 325 MG TAB PO SCH ×2 (09:00→21:05)
[2021-09-10] MEDS: busPIRone 7.5 MG TAB PO SCH ×3 (09:00→21:06)
[2021-09-10] MEDS: lisinopril 2.5 MG TAB PO SCH (09:01)
[2021-09-10] MEDS: CHOLECALCIFEROL 1,000 UNITS 25 MCG TAB PO SCH (09:01)
[2021-09-10] MEDS: HYDROCORTISONE SOD 50 MG in SYRINGE 0 ML IV SCH ×3 (09:01→21:05)
[2021-09-10] MEDS: FUROSEMIDE 20 MG TAB PO SCH (09:01)
[2021-09-10] MEDS: POTASSIUM CHLORIDE CRTAB 20 MEQ TABCR PO SCH (09:02)
[2021-09-10] MEDS: CALCITRIOL 0.25 MCG CAPSULE PO SCH (09:02)
[2021-09-10] MEDS: GLUCOSAMINE SULFATE 500 MG CAP PO SCH (09:02)
[2021-09-10] MEDS: LIDOCAINE 5% 1 PATCH TD SCH (09:04)
[2021-09-10] MEDS: POLYETHYLENE (MIRALAX) 17 GM PACK PO SCH (09:04)
[2021-09-10] MEDS: ACETAMINOPHEN 500 MG TAB PO SCH ×3 (09:13→21:09)
--- NOTE | 2021-09-10 19:43 | Hospitalist Progress Note ---
Date of Service September 10, 2021 Assessment & Plan (1) Recurrent UTI (urinary tract infection): Plan: Suspect baseline urinary incontinence could be setting her up for recurrent infection. recent CT abd/pelvis without anatomic abnormalities or obstructing stones. Urine cx with - * pseudomonas, pansensitive -- d/c cefepime, switched to Levaquin 500mg daily (08/31); completed 7 days in total of Rx * enterococcus -- resistant to amp; sens to vanco and dapto -completed 7 days of antibiotic therapy and total total of Rx; switched to daptomycin due to rising Cr now coming down * Completed course of all antibiotics Could consider methenamine for UTI prevention as an outpatient. Will not introduce any additional medications at this time Previously took rotating preventive abx but would not recommend such as she already has resistant pathogens (2) Acute encephalopathy: Plan: Resolved discontinued Ativan as likely caused her nightmares although BuSpar/mirtazapine continue as outpatient. with weakness did consider the fact that she is on daily prednisone 5 mg, seem to have some improvement with hydrocortisone. (3) Chest pain: Plan: Resolved. Serial troponins negative. Suspect more GI in origin. (4) Hyperparathyroidism: Plan: Chronic. Calcium level mild at presentation - likely related to low intravascular volume. Calcium normalized with fluids. (5) Hypertension: Plan: Continue metoprolol, lisinopril, lasix, amlodipine Controlled (6) Coronary artery disease: Plan: no ischemic symptoms at this time (7) Anemia: Plan: stable H/H (8) Multiple myeloma: Plan: Previously stress dosed steroids earlier in admission. 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 Start vitamin D3 1000 units 09/02. (13) DVT prophylaxis: Plan: eliquis 2.5mg BID (14) Persistent atrial fibrillation: Plan: controlled cont eliquis cont metoprolol succinate Admission and Anticipated Discharge Date Admission Date: August 29, 2021 Subjective Patient states she feels better but she still feels tired she is concerned that the therapist here a bit too pushy she is encouraged to go to rehab. She feels that she does notice some improvement after her hydrocortisone. Returning to her prednisone on 11 September. Reportedly there may be a bed available in the rehab center on September 11 Review of Systems Review of Systems: Mild distress and persistent fatigue no headache, no visual changes no speech or swallowing issues no chest pain, pressure or palpitations no shortness of breath, cough or wheezes no abdominal pain, nausea or vomiting, diarrhea or constipation no dysuria, hematuria or frequency Significant bilateral shoulder discomfort and previous history of frozen shoulders no back pain, CVA tenderness or radicular pain no bruising, bleeding or rashes Patient complains of overall being significantly weak no complaints of anxiety or depression.. Physical Exam Physical Exam: The patient appeared chronically ill Vital signs as documented. Head exam is normocephalic atraumatic Neck is without JVD, thyromegaly, or carotid bruits. Lungs are clear to auscultation, no focal loss of breath sounds Cardiac exam, Rhythm is regular.. No murmurs, rubs or gallops. Abdominal exam reveals normal bowel sounds, soft non tender, no masses Extremities are nonedematous and both pedal pulses are present Neurologic exam is alert and oriented, no focal loss of strength or sensation she can move about in bed well but she cannot sit or stand without significant assistance. Skin is without bruises or rashes Psychologically is without concerns for anxiety or depression Results & Data Results & Data ([facility]) Vital Signs (Past 12 Hours) Vital Signs Temp Pulse Resp BP Pulse Ox 09/10/21 14:52 99.0 F 63 18 110/66 96 PG Care Time/CCT Total # of Minutes Spent Total Time Spent with Patient: Total time spent is greater than 50% in coordination of care (as documented) at patient's floor/unit and/or counseling patient: Coding Level of Care Code 73000 Subseq Hosp Care Lvl 1 Diagnoses Recurrent UTI (urinary tract infection) N39.0 Acute encephalopathy G93.40 Chest pain R07.9 Hyperparathyroidism E21.3 Hypertension I10 Coronary artery disease I25.10 Anemia D64.9 Multiple myeloma C90.01 Multiple myeloma remission status: in remission S/P IVC filter Z95.828 Shoulder pain, bilateral M25.511; M25.512 Hypothyroidism E03.9 Fracture of right great toe S92.401A DVT prophylaxis Z29.9 Persistent atrial fibrillation I48.19 (1) Multiple myeloma Multiple myeloma remission status: in remission Qualified Code(s): C90.01 - Multiple myeloma in remission
[2021-09-10] MEDS: MIRTAZAPINE TAB 15 MG TAB PO SCH (21:06)
[2021-09-11] MEDS: LEVOTHYROXINE SODIUM 75 MCG TABLET PO SCH (05:29)
[2021-09-11] MEDS ORDERED: predniSONE 5 MG TAB PO SCH (09:00)
[2021-09-11] MEDS: POTASSIUM CHLORIDE CRTAB 20 MEQ TABCR PO SCH (09:16)
[2021-09-11] MEDS: GLUCOSAMINE SULFATE 500 MG CAP PO SCH (09:17)
[2021-09-11] MEDS: PANTOprazole 40 MG TAB PO SCH (09:17)
[2021-09-11] MEDS: lisinopril 2.5 MG TAB PO SCH (09:17)
[2021-09-11] MEDS: CALCITRIOL 0.25 MCG CAPSULE PO SCH (09:18)
[2021-09-11] MEDS: FERROUS SULFATE 325 MG TAB PO SCH (09:18)
[2021-09-11] MEDS: amLODIPine BESYLATE 5 MG TAB PO SCH (09:18)
[2021-09-11] MEDS: busPIRone 7.5 MG TAB PO SCH (09:19)
[2021-09-11] MEDS: APIXABAN 2.5 MG TAB PO SCH (09:19)
[2021-09-11] MEDS: CHOLECALCIFEROL 1,000 UNITS 25 MCG TAB PO SCH (09:20)
[2021-09-11] MEDS: CINACALCET HCL 30 MG TAB PO SCH (09:20)
[2021-09-11] MEDS: LIDOCAINE 5% 1 PATCH TD SCH (09:21)
[2021-09-11] MEDS: METOPROLOL SUCC 25MG EXT REL TAB PO SCH (09:21)
[2021-09-11] MEDS: POLYETHYLENE (MIRALAX) 17 GM PACK PO SCH (09:33)
[2021-09-11] MEDS: ACETAMINOPHEN 500 MG TAB PO SCH (09:33)
--- NOTE | 2021-09-11 20:14 | Discharge Summary ---
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 Patient comes to the emergency room today for complaints of increase in fatigue, dysuria, and increase in urinary frequency that has gotten worse over the past week. She states she just feels like a lump and sleeps more than normal. She has been trying to drink water, but with her increase in fequency she feels as though she can't maintain her intake. She denies any fevers, chills, back pain, but does endorse dysuria. The patient was recently admitted in August 12 for UTI and feels as if she just hasn't recovered at that time. The patient was discharged with Augmentin that finished on . The patient had previously been on Keflex prophylaxis via ID through 2019- secondary to her history of GI bleeds and apixaban usage the Keflex was stopped through multidisciplinary discussion with cardiology and IM. The culture from that UA was pansensitive E.coli and Gardnerella-like bacilli. UTIs in 2019 grew pseudomonas. She was started on Cefepime in the EMD. Patient also had routine lab draws and urine sent. Patient had routine labs drawn- that revealed normal WBC, normal HGB/HCT. Her Calcium was mildly elevated to 11.7- she received 1Liter of normal saline in the EMD. Will continue with maintaining Euvolemia and follow her calcium levels. Ionized calcium is pending. Her UA is 1+bacteria, RBC 10-30, with 3+ blood, +LE, Nitrites Negative- 1+ bacteria. Will obtain KUB evaluate for any renal or bladder stones with her hypercalcemia and blood. Patient has received her COVID vaccine and her COVID test on admission is: NEGATIVE. 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 Lungs are clear to auscultation and appear unlabored Cardiac exam, Rhythm is regular.. No murmurs, rubs or gallops. Abdominal exam reveals normal bowel sounds, soft non tender, no masses Extremities are nonedematous and both pedal pulses are normal. Neurologic exam is alert and oriented, no focal loss of strength or sensation overall very weak needs physical therapy Skin is without bruises or rashes Psychologically is with concerns for anxiety Discharge Data Allergies Allergy/AdvReac Type Severity Reaction Status Date / Time aspartame Allergy Mild HEADACHES, Verified 08/29/21 13:23 N/V shellfish derived Allergy Mild HEADACHE Verified 08/29/21 13:23 AND N/V Cipro Allergy Unknown ELEVATED Verified 09/20/17 17:44 BLOOD PRESSURE ciprofloxacin Allergy Unknown ELEVATED Verified 08/29/21 13:23 BLOOD PRESSURE Iodinated Contrast Media Allergy Unknown R/T Verified 08/29/21 13:23 SHELLFISH ALLERGY nitrofurantoin Allergy Unknown NAUSEA,ABDOMINAL Verified 08/29/21 13:23 PAIN Quinolones Allergy Unknown CIPRO - Verified 08/29/21 13:23 ELEVATED BLOOD PRESSURE Sulfa (Sulfonamide Allergy Unknown UNKNOWN - Verified 08/29/21 13:23 Antibiotics) PT STATES DOES NOT REMEMBER Consultations 08/29/21 12:44 ED Decision to Admit Stat 08/30/21 20:33 Consult Orthopedic Surgery Routine Hospital Course (1) Recurrent UTI (urinary tract infection): Suspect baseline urinary incontinence could be setting her up for recurrent infection. recent CT abd/pelvis without anatomic abnormalities or obstructing stones. Urine cx with - * pseudomonas, pansensitive -- d/c cefepime, switched to Levaquin 500mg daily (08/31); completed 7 days in total of Rx * enterococcus -- resistant to amp; sens to vanco and dapto -completed 7 days of antibiotic therapy and total total of Rx; switched to daptomycin due to rising Cr now coming down * Completed course of all antibiotics Could consider methenamine for UTI prevention as an outpatient. Will not introduce any additional medications at this time Previously took rotating preventive abx but would not recommend such as she already has resistant pathogens (2) Acute encephalopathy: Resolved discontinued Ativan as likely caused her nightmares although BuSpar/mirtazapine continue as outpatient. with weakness did consider the fact that she is on daily prednisone 5 mg, seem to have some improvement with hydrocortisone pulse dose returns to the prednisone 5 before discharge (3) Chest pain: Resolved. Serial troponins negative. Suspect more GI in origin. (4) Hyperparathyroidism: Chronic. Calcium level mild at presentation - likely related to low intravascular volume. Calcium normalized with fluids. (5) Hypertension: Continue metoprolol, lisinopril, lasix, amlodipine Controlled (6) Coronary artery disease: no ischemic symptoms at this time (7) Anemia: stable H/H (8) Multiple myeloma: Previously stress dosed steroids earlier in admission. 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 Start vitamin D3 1000 units 09/02. (13) DVT prophylaxis: eliquis 2.5mg BID (14) Persistent atrial fibrillation: controlled cont eliquis cont metoprolol succinate Total Time Total Time Spent Total Time Spent (In Minutes): It required greater than 30 minutes to prepare this patient for discharge Discharge Plan Discharge Items Patient Disposition: Transfer [facility] Reason For Visit: UTI/FATIGUE Discharge Diagnosis: recurrent urinary tract infection-pseudomonas and enterococcus metabolic encephalopathy resolved right great toe fracture Activity: Per Instructions section Activity Comment: PT/OT plan of care at skilled facility Non-emergency contact: Primary Care Provider Call non-emergency contact if: you have any medication questions and your symptoms worsen [facility] - Diet: Regular Addtl Attending Provider Instructions: please participate in physical therapy and occupational therapy, follow up with ortho for toe fracture Pending Studies at Discharge: No Stand-Alone Forms: [facility] Skilled Items Patient informed of condition?: Yes DNR: Yes Discharge Level of Care: Skilled Communicable Disease: No Discharge Prognosis: Stable Lines: None Urinary Catheter: No Medications and DC Order Prescriptions: Continued ferrous sulfate [Iron (ferrous sulfate)] 325 mg (65 mg iron) tablet 325 mg PO BID RF: 0 polyethylene glycol 3350 [Miralax] 17 gram Powder In Packet 17 g PO DAILY PRN (Reason: Constipation) Qty: 0 RF: 0 prednisone 5 mg Tablet 5 mg PO QAM Qty: 0 RF: 0 cyanocobalamin (vitamin B-12) [Vitamin B-12] 1,000 mcg Tablet 1,000 mcg PO DAILY Qty: 0 RF: 0 glucosamine sulfate [Glucosamine] 500 mg Tablet 1,000 mg PO DAILY Qty: 0 RF: 0 ondansetron 8 mg Tablet,Disintegrating 8 mg PO TID PRN (Reason: n/v) Qty: 0 RF: 0 levothyroxine [Synthroid] 75 mcg Tablet 75 mcg PO DAILYBB Qty: 0 RF: 0 potassium chloride [K-Tab] 20 mEq Tablet Extended Release 20 meq PO DAILY Qty: 0 RF: 0 pantoprazole [Protonix] 40 mg tablet,delayed release (DR/EC) 40 mg PO BID Qty: 0 RF: 0 cinacalcet [Sensipar] 30 mg tablet 30 mg PO BID Qty: 60 RF: 2 metoprolol succinate [Toprol XL] 25 mg tablet extended release 24 hr 25 mg PO DAILY RF: 0 ascorbic acid (vitamin C) [Vitamin C] 250 mg tablet 250 mg PO DAILY RF: 0 lorazepam [Ativan] 0.5 mg tablet 0.5 mg PO Q8H PRN (Reason: Anxiety) RF: 0 Mucinex DM 30-600 mg Tablet Extended Release 12 Hr 1 tab PO Q12H PRN (Reason: Congestion) RF: 0 nitroglycerin [Nitrostat] 0.4 mg Tablet, Sublingual 0.4 mg sublingual DIRECTED PRN (Reason: Chest Pain) RF: 0 hydrocortisone [Procto-Med HC] 2.5 % Cream With Perineal Applicator 1 applic HI BID PRN (Reason: irritation) RF: 0 melatonin 5 mg Tablet 5 mg PO HS PRN (Reason: Sleep) RF: 0 furosemide [Lasix] 20 mg tablet 20 mg PO 3XWK RF: 0 lisinopril [Zestril] 2.5 mg tablet 2.5 mg PO DAILY RF: 0 mirtazapine [Remeron] 15 mg tablet 7.5 mg PO HS RF: 0 buspirone 15 mg tablet 7.5 mg PO TID RF: 0 lidocaine [Lidoderm] 5 % Adhesive Patch,Medicated 1 patch TOPICAL DAILY RF: 0 Azo Cranberry 250 mg Tablet,Chewable 250 mg PO BID RF: 0 Icy Hot Advanced Relief 11-16 % Cream 1 applic TOPICAL UD RF: 0 sucralfate [Carafate] 1 gram tablet 1 g PO QID PRN (Reason: ULCERS) RF: 0 amlodipine [Norvasc] 5 mg tablet 5 mg PO DAILY RF: 0 acetaminophen [Acetaminophen Extra Strength] 500 mg tablet 500 mg PO QAM RF: 0 calcium carbonate [Calcium 600] 600 mg calcium (1,500 mg) tablet 600 mg PO QDD RF: 0 calcitriol [Rocaltrol] 0.5 mcg capsule 1.5 mcg PO DAILY RF: 0 Eliquis 2.5 mg tablet 2.5 mg PO BID RF: 0 Discontinued cephalexin 500 mg tablet 500 mg PO BID RF: 0 Discharge Orders: Discharge Order (Routine); Ordered 09/11/21 Ordered By: Oneil Delaney Admission Data Admit Date/Time: 08/29/21 13:30 Attending Provider: Oneil Delaney Admit Provider: Rebekah Spann Primary Care Provider: Jadon Villatoro,[facility], [facility] Other Providers: Rebekah Spann ; Simone Valencia ; [place] ; [facility] ; [facility] Other Interventions: Discharge Summary Assessment (RN) Last Done: 09/11/21 11:19 Coding Level of Care Code D/C DAY MANAGEMENT >30 MINS Diagnoses Recurrent UTI (urinary tract infection) N39.0 Acute encephalopathy G93.40 Chest pain R07.9 Hyperparathyroidism E21.3 Hypertension I10 Coronary artery disease I25.10 Anemia D64.9 Multiple myeloma C90.01 Multiple myeloma remission status: in remission S/P IVC filter Z95.828 Shoulder pain, bilateral M25.511; M25.512 Hypothyroidism E03.9 Fracture of right great toe S92.401A DVT prophylaxis Z29.9 Persistent atrial fibrillation I48.19
--- NOTE | 2021-09-17 13:03 | Coding Query ---
CODING QUERY To promote full compliance with coding requirements relating to patient care, provider participation is requested in all cases of model maker apprentice uncertainty. Please assist us with the question(s) below: Coding Question(s): Metabolic Encephalopathy is documented on discharge while encephalopathy alone is documented throughout the account. Please clarify below: ( xx) Patient with Metabolic Encephalopathy ( ) Metabolic Encephalopathy Ruled Out ( ) Other Please Explain: Thank you Mango Putnam Principal Diagnosis: "that condition established after study, to be chiefly responsible for occasioning the admission of the patient to the hospital for care." Co-Existing Principal Diagnosis: "when two or more diagnoses equally meet the criteria for principal diagnosis as determined by the circumstances of admission, diagnostic work up, and/or therapy provided, and the Alphabetic Index, Tabular List, or another coding guideline does not provide sequencing direction, any one of the diagnoses may be sequenced first." "When the physician has documented what appears to be a current diagnosis in the body of the record, but has not included the diagnosis in the final diagnostic statement, the physician should be asked whether the diagnosis should be added." (Source Coding Clinic 2 QTR90. p3-4) ABDULAZIZ
== END 2021-09-11 12:07 | DRG 689 ==
LOC: ED 09:35 → SUATTDRO 13:30 → 3N 13:30

== ENCOUNTER 2021-09-29 10:54 | Observation (INO) ==
[2021-09-29] MEDS ORDERED: CEFEPIME 2,000 MG/20 ML VIAL IV STA ×2 (11:16→13:53)
[2021-09-29] MEDS ORDERED: VANCOMYCIN HCL 1,500 MG in SODIUM CHLORIDE 0.9% 500 ML IV ONE (11:18)
[2021-09-29] MEDS ORDERED: VANCOMYCIN CONSULT ACTIVE PRN (11:18)
--- NOTE | 2021-09-29 11:22 | Emergency Department Note ---
History of Present Illness General Chief complaint: Urinary Symptoms Stated complaint: UTI Time Seen by Provider: 09/29/21 11:03 History of Present Illness Maximum Pain Intensity: 5 86-year-old female presents to the ED with a chief complaint of generalized weakness, decreased appetite and overall just feeling sick. She has a history of frequent UTIs. A urinalysis was obtained from the nursing facility this morning that was cloudy and purulent in appearance. She was sent here for f urther evaluation and care. It was a cath urine specimen. No nausea or vomiting. No additional complaints at this time. Home Medications Medication Instructions Recorded Confirmed Type cyanocobalamin (vitamin B-12) 1,000 mcg PO DAILY #0 09/13/17 09/29/21 History 1,000 mcg tablet (Vitamin B-12) glucosamine sulfate 500 mg tablet 1,000 mg PO DAILY #0 09/13/17 09/29/21 History (Glucosamine) levothyroxine 75 mcg tablet 75 mcg PO DAILYBB #0 09/13/17 09/29/21 History (Synthroid) ondansetron 8 mg disintegrating 8 mg PO TID PRN #0 tab 09/13/17 09/29/21 History tablet polyethylene glycol 3350 17 gram 17 g PO DAILY PRN #0 09/13/17 09/29/21 History oral powder packet (Miralax) prednisone 5 mg tablet 5 mg PO QAM #0 tab 09/13/17 09/29/21 History potassium chloride 20 mEq 20 meq PO DAILY #0 tab 05/14/18 09/29/21 History tablet,extended release (K-Tab) ferrous sulfate 325 mg (65 mg 325 mg PO BID 03/08/19 09/29/21 History iron) tablet (Iron (ferrous sulfate)) metoprolol succinate 25 mg 25 mg PO DAILY 07/27/19 09/29/21 History tablet,extended release 24 hr (Toprol XL) ascorbic acid (vitamin C) 250 mg 250 mg PO DAILY 10/10/19 09/29/21 History tablet (Vitamin C) nitroglycerin 0.4 mg sublingual 0.4 mg SUBLINGUAL DIRECTED PRN 10/20/19 09/29/21 History tablet (Nitrostat) pantoprazole 40 mg tablet,delayed 40 mg PO BID #0 tab 04/18/20 09/29/21 History release (Protonix) cinacalcet 30 mg tablet (Sensipar) 30 mg PO BID #60 tab 05/19/21 09/29/21 Rx furosemide 20 mg tablet (Lasix) 20 mg PO MOWEFR 08/11/21 09/29/21 History lisinopril 2.5 mg tablet (Zestril) 2.5 mg PO DAILY 08/11/21 09/29/21 History melatonin 5 mg tablet 5 - 10 mg PO HS PRN 08/11/21 09/29/21 History mirtazapine 15 mg tablet (Remeron) 7.5 mg PO HS tab 08/21/21 09/29/21 History acetaminophen 500 mg tablet 500 mg PO QAM 08/29/21 09/29/21 History (Acetaminophen Extra Strength) amlodipine 5 mg tablet (Norvasc) 5 mg PO DAILY 08/29/21 09/29/21 History apixaban 2.5 mg tablet (Eliquis) 2.5 mg PO BID 08/29/21 09/29/21 History calcitriol 0.5 mcg capsule 1.5 mcg PO DAILY 08/29/21 09/29/21 History (Rocaltrol) calcium carbonate 600 mg calcium 600 mg PO QDD 08/29/21 09/29/21 History (1,500 mg) tablet (Calcium) camphor 11 %-menthol 16 % topical 1 applic TOPICAL UD 08/29/21 09/29/21 History cream (Icy Hot Advanced Relief) cranberry fruit concentrate 250 mg 250 mg PO BID 08/29/21 09/29/21 History chewable tablet (Azo Cranberry) lidocaine 5 % topical patch 1 patch TOPICAL DAILY 08/29/21 09/29/21 History (Lidoderm) sucralfate 1 gram tablet (Carafate) 1 g PO QID PRN 08/29/21 09/29/21 History buspirone 5 mg tablet 5 mg PO TID 09/29/21 09/29/21 History cholecalciferol (vitamin D3) 25 25 mcg PO DAILY 09/29/21 09/29/21 History mcg (1,000 unit) tablet (Vitamin D3) Allergies Allergy/AdvReac Type Severity Reaction Status Date / Time aspartame Allergy Mild HEADACHES, Verified 09/29/21 12:00 N/V shellfish derived Allergy Mild HEADACHE Verified 09/29/21 12:00 AND N/V Cipro Allergy Unknown ELEVATED Verified 09/20/17 17:44 BLOOD PRESSURE ciprofloxacin Allergy Unknown ELEVATED Verified 09/29/21 12:00 BLOOD PRESSURE Iodinated Contrast Media Allergy Unknown R/T Verified 09/29/21 12:00 SHELLFISH ALLERGY nitrofurantoin Allergy Unknown NAUSEA,ABDOMINAL Verified 09/29/21 12:00 PAIN Quinolones Allergy Unknown CIPRO - Verified 09/29/21 12:00 ELEVATED BLOOD PRESSURE Sulfa (Sulfonamide Allergy Unknown UNKNOWN - Verified 09/29/21 12:00 Antibiotics) PT STATES DOES NOT REMEMBER Past Med/Surg History Medical History Acute GI bleeding (2016) Acute hip pain Adenocarcinoma of rectum (2016) "Diarrhea and rectal bleeding Status post colonoscopy and biopsy 02/09/2017 showing high-grade dysplasia suspicious for adenocarcinoma Status post transrectal resection 02/15/2017 Stage pT2 [id number] Plan for combined radiation and chemotherapy, chemotherapy comprised of Xeloda Status post completion of radiation therapy 05/17/2017. She received 5040 cGy. Dosage of Xeloda was adjusted due to side effect of diarrhea" Anxiety Arthritis Atrial fibrillation with RVR Blood dyscrasia Cancer Chronic steroid use Chronic systolic heart failure Constipation Coronary artery disease DVT (deep venous thrombosis) Electrolyte abnormality Fatigue Gastric ulcer (2014) Gastrointestinal disorder GI bleed Alyse filter in place High cholesterol History of GI bleed History of parathyroid disease Hx of deep venous thrombosis Hypertension Multiple myeloma Osteoporosis Pneumonia (09/2019) Shoulder pain, bilateral Thrombophlebitis Thyroid disease Urinary tract infection Surgical History History of appendectomy History of bilateral salpingo-oophorectomy History of left hip hemiarthroplasty History of rectal surgery S/P CABG (coronary artery bypass graft) (2006) S/P hysterectomy S/P IVC filter Family History Other Coronary heart disease Heart failure Denies family history of Ovarian cancer Prostate cancer Myocardial infarction Breast cancer Colorectal cancer Social History Smoking Status: Never smoker Second Hand Exposure: No; Hx Alcohol Use: No Hx Substance Use: No Preferred Language: Romanian Communication Ability: Effective Visual Impairment: Partially Limited Hearing Ability: Hard of Hearing 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 Beliefs That Will Affect Care: None marital status: / Current Living Situation: [facility] Current Living Situation Comment: [facility] current occupational status: retired 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 How many Children do You have: 3 Feels Safe at Home: Yes Childhood Exposure to Second-Hand Smoke: No during the past year weight has: remained stable Dental Care, Regularly: Yes Physical Activity Frequency: Does not Exercise Seatbelt Use: always Sunscreen Use: Yes Assistive Devices: Walker Review of Systems A total of 10 systems reviewed and were otherwise negative Physical Exam Vital Signs Vital Signs - 24 hr 09/29/21 10:56 09/29/21 11:27 09/29/21 11:28 Temperature 36.7 C Temperature Source Temporal Artery Scan Pulse Rate 94 H 82 82 Pulse Rate from SpO2 Sensor 84 Respiratory Rate 18 17 22 Respiratory Effort / Characteristics Non-Labored Respiratory Depth Normal Blood Pressure 139/69 Blood Pressure Mean 92 Pulse Oximetry 97 95 96 Oxygen Delivery Method Room Air Room Air Room Air Sepsis Recent Fever Within 48 Hours No Sepsis New/Unexplained Change in Mental Status No Sepsis Action Taken by Nursing No Action Required 09/29/21 11:30 09/29/21 11:40 09/29/21 11:50 Temperature Temperature Source Pulse Rate 78 73 76 Pulse Rate from SpO2 Sensor 76 Respiratory Rate 19 13 16 Respiratory Effort / Characteristics Respiratory Depth Blood Pressure Blood Pressure Mean Pulse Oximetry 94 94 94 Oxygen Delivery Method Room Air Room Air Room Air Sepsis Recent Fever Within 48 Hours Sepsis New/Unexplained Change in Mental Status Sepsis Action Taken by Nursing 09/29/21 12:00 09/29/21 12:10 09/29/21 12:20 Temperature Temperature Source Pulse Rate 79 77 84 Pulse Rate from SpO2 Sensor 82 76 82 Respiratory Rate 17 17 18 Respiratory Effort / Characteristics Respiratory Depth Blood Pressure 141/70 H Blood Pressure Mean 93 Pulse Oximetry 96 98 93 Oxygen Delivery Method Room Air Room Air Room Air Sepsis Recent Fever Within 48 Hours Sepsis New/Unexplained Change in Mental Status Sepsis Action Taken by Nursing 09/29/21 12:30 09/29/21 12:40 09/29/21 12:50 Temperature Temperature Source Pulse Rate 70 73 70 Pulse Rate from SpO2 Sensor 73 72 71 Respiratory Rate 13 12 12 Respiratory Effort / Characteristics Respiratory Depth Blood Pressure Blood Pressure Mean Pulse Oximetry 97 96 94 Oxygen Delivery Method Room Air Room Air Sepsis Recent Fever Within 48 Hours Sepsis New/Unexplained Change in Mental Status Sepsis Action Taken by Nursing 09/29/21 13:00 09/29/21 13:10 Temperature Temperature Source Pulse Rate 83 76 Pulse Rate from SpO2 Sensor 84 79 Respiratory Rate 12 17 Respiratory Effort / Characteristics Respiratory Depth Blood Pressure 149/70 H Blood Pressure Mean 96 Pulse Oximetry 95 97 Oxygen Delivery Method Room Air Sepsis Recent Fever Within 48 Hours Sepsis New/Unexplained Change in Mental Status Sepsis Action Taken by Nursing CONSTITUTIONAL/VITAL SIGNS: Reviewed / noted above. GENERAL: Non-toxic in appearance. INTEGUMENTARY: Warm, dry, and Laird. HEAD: Normocephalic. EYES: without scleral icterus or trauma. ENT/OROPHARYNX: clear and moist. LYMPHADENOPATHY/NECK: Is supple without lymphadenopathy or meningismus. RESPIRATORY: Clear to auscultation bilaterally. No increased work of breathing. CARDIOVASCULAR: Regular rate and rhythm. GI/ABDOMEN: Soft and mildly tender in the suprapubic area. No organomegaly or pulsatile mass. EXTREMITIES: Warm and well perfused. BACK: No CVA tenderness. NEUROLOGICAL: Intact without focal deficits. PSYCHIATRIC: normal affect. MUSCULOSKELETAL: Normally developed with good muscle tone. TRIAGE NURSING DOCUMENTATION REVIEWED. Course Administered Medications Vancomycin HCl 1,500 mg/ (Sodium Chloride) 530 mls @ 200 mls/hr IV NOW ONE Stop: 09/29/21 13:56 Last Admin: 09/29/21 11:58 Dose: 200 mls/hr Documented by: [id number] Discontinued Medications Cefepime HCl (Maxipime) 2,000 mg in 20 mls @ 5 mls/min IV NOW STA; Protocol Stop: 09/29/21 11:19 Last Admin: 09/29/21 11:45 Dose: 5 mls/min Documented by: [id number] Medical Decision Making Differential Diagnosis Differential includes acute coronary syndrome, myocardial infarction, CVA, TIA, anemia, infection, pneumonia, UTI, pyelonephritis, poor nutrition, dehydration, electrolyte disturbance,hypoglycemia. Medical Records Attestation: I reviewed the patient's medical records. Home Medications Current Medication List: was personally reviewed by me Laboratory Data Attestation: I reviewed the patient's lab results. Result diagrams: 09/29/21 11:35 09/29/21 11:35 Lab Results 09/29/21 09/29/21 09/29/21 Range/Units 11:30 11:35 11:35 WBC 8.92 (4.8-10.8) K/uL RBC 3.48 L (4.2-5.4) M/uL Hgb 11.0 L (12.0-16.0) g/dL Hct 32.2 L (37-47) % MCV 92.5 (80-100) fL MCH 31.6 (25-34) pg MCHC 34.2 (32-36) g/dL RDW Std Deviation 45.9 (36.4-46.3) fL RDW Coeff of Leland 13.6 (11.5-14.5) % Plt Count 267 (130-400) K/uL MPV 10.0 (7.4-10.4) fL Immature Gran % (Auto) 0.4 % Neut % (Auto) 84.5 % Lymph % (Auto) 11.5 % Bryan % (Auto) 3.1 % Eos % (Auto) 0.4 % Baso % (Auto) 0.1 % Neut # (Auto) 7.52 H (1.4-6.5) K/uL Lymph # (Auto) 1.03 L (1.2-3.4) K/uL Bryan # (Auto) 0.28 (0.11-0.59) K/uL Eos # (Auto) 0.04 (0-0.5) K/uL Baso # (Auto) 0.01 (0-0.2) K/uL Immature Gran # (Auto) 0.04 H (0.00-0.02) K/uL Sodium 135 L (136-145) mmol/L Potassium 3.8 (3.5-5.1) mmol/L Chloride 103 (98-107) mmol/L Carbon Dioxide 25 (21-32) mmol/L Anion Gap 7.0 (3-11) BUN 13 (7-18) mg/dl Creatinine 0.73 (0.6-1.2) mg/dl Est Cr Clr Drug Dosing 47.9 ml/min Est GFR ( Amer) 85.2 ml/min Est GFR (Non-Af Amer) 73.5 ml/min BUN/Creatinine Ratio 17.5 (10-20) Glucose 95 (70-99) mg/dl Calcium 10.1 (8.5-10.1) mg/dl Total Bilirubin 0.5 (0.2-1) mg/dl AST 11 L (15-37) U/L ALT 15 (12-78) U/L Alkaline Phosphatase 44 L (45-117) U/L Total Protein 6.9 (6.4-8.2) gm/dl Albumin 3.5 (3.4-5.0) gm/dl Globulin 3.4 (2.5-4.0) gm/dl Albumin/Globulin Ratio 1.0 (0.9-2) Urine Color Yellow Urine Appearance Turbid A (Clear) Urine pH 6.5 (4.5-7.5) Ur Specific Russell 1.013 (1.000-1.030) Urine Protein 2+ H (Negative) Urine Glucose (UA) Negative (Negative) Urine Ketones Negative (Negative) Urine Blood 3+ H (Negative) Urine Nitrite Positive A (Negative) Urine Bilirubin Negative (Negative) Urine Urobilinogen Negative (Negative) Ur Leukocyte Esterase 3+ H (Negative) Urine WBC (Auto) >30 H (0-5) /hpf Urine RBC (Auto) 10-30 H (0-4) /hpf U Hyaline Cast (Auto) 5-10 H (0-5) /lpf U Epithel Cells (Auto) >30 H (0-5) /lpf Urine Bacteria (Auto) 1+ H (Negative) Urine Yeast Not Reportable COVID-19 Eval Order SARS-CoV-2 (PCR) (Negative) 09/29/21 09/29/21 Range/Units 11:43 11:43 WBC (4.8-10.8) K/uL RBC (4.2-5.4) M/uL Hgb (12.0-16.0) g/dL Hct (37-47) % MCV (80-100) fL MCH (25-34) pg MCHC (32-36) g/dL RDW Std Deviation (36.4-46.3) fL RDW Coeff of Leland (11.5-14.5) % Plt Count (130-400) K/uL MPV (7.4-10.4) fL Immature Gran % (Auto) % Neut % (Auto) % Lymph % (Auto) % Bryan % (Auto) % Eos % (Auto) % Baso % (Auto) % Neut # (Auto) (1.4-6.5) K/uL Lymph # (Auto) (1.2-3.4) K/uL Bryan # (Auto) (0.11-0.59) K/uL Eos # (Auto) (0-0.5) K/uL Baso # (Auto) (0-0.2) K/uL Immature Gran # (Auto) (0.00-0.02) K/uL Sodium (136-145) mmol/L Potassium (3.5-5.1) mmol/L Chloride (98-107) mmol/L Carbon Dioxide (21-32) mmol/L Anion Gap (3-11) BUN (7-18) mg/dl Creatinine (0.6-1.2) mg/dl Est Cr Clr Drug Dosing ml/min Est GFR ( Amer) ml/min Est GFR (Non-Af Amer) ml/min BUN/Creatinine Ratio (10-20) Glucose (70-99) mg/dl Calcium (8.5-10.1) mg/dl Total Bilirubin (0.2-1) mg/dl AST (15-37) U/L ALT (12-78) U/L Alkaline Phosphatase (45-117) U/L Total Protein (6.4-8.2) gm/dl Albumin (3.4-5.0) gm/dl Globulin (2.5-4.0) gm/dl Albumin/Globulin Ratio (0.9-2) Urine Color Urine Appearance (Clear) Urine pH (4.5-7.5) Ur Specific Russell (1.000-1.030) Urine Protein (Negative) Urine Glucose (UA) (Negative) Urine Ketones (Negative) Urine Blood (Negative) Urine Nitrite (Negative) Urine Bilirubin (Negative) Urine Urobilinogen (Negative) Ur Leukocyte Esterase (Negative) Urine WBC (Auto) (0-5) /hpf Urine RBC (Auto) (0-4) /hpf U Hyaline Cast (Auto) (0-5) /lpf U Epithel Cells (Auto) (0-5) /lpf Urine Bacteria (Auto) (Negative) Urine Yeast COVID-19 Eval Order Covid19 at [facility] SARS-CoV-2 (PCR) NEGATIVE (Negative) Imaging Data Radiologist's Impression: Chest X-Ray 09/29/21 11:15 SINGLE VIEW CHEST CLINICAL HISTORY: Generalized weakness. FINDINGS: An AP, portable, upright chest radiograph is compared to study dated 07/19/2021 and correlated with chest CT dated 10/20/2019. The patient is status post midline sternotomy. The heart is enlarged noting atherosclerotic calcification of the thoracic aorta. The pulmonary vasculature is noncongested. Chronic interstitial thickening is similar to previous. There is bibasilar scarring/atelectasis. No airspace consolidation or large pleural effusion is identified. No pneumothorax is seen. The skeletal structures are osteopenic. The bony thorax is grossly intact. Advanced arthritic change is seen in the shoulders. Superior subluxation of the humeral heads suggest chronic bilateral rotator cuff injury. IMPRESSION: Cardiomegaly with no active disease in the chest. ACT 112: Negative or not required by law. Electronically signed by: Sridhar Porter M.D. 09/29/2021 11:51 AM ECG Data Attestation: I personally reviewed and interpreted this ECG as follows: MDM Narrative Patient presents with generalized weakness and a general feeling of not being well. She does have recurrent urinary tract infections. She thinks that she has another one. Vital signs are stable. She is afebrile. EKG shows A. fib at a rate of 79. She does have a history of this. CBC and chemistry panel normal. Urine shows infection. Chest x-ray was negative for acute disease. Covid test was negative. Patient be seen by the hospitalist for further inpatient evaluation and care. Impression & Plan UTI (urinary tract infection), Generalized muscle weakness Discharge Plan Visit Data Chief Complaint: Urinary Symptoms Stated Complaint: UTI ED Provider: Doyle Luis Discharge Problem: UTI (urinary tract infection), Generalized muscle weakness Patient Disposition: Being Evaluated by Hospitalist Forms Stand Alone Forms: My [facility] [employer] Prescriptions Prescriptions: No Action ferrous sulfate [Iron (ferrous sulfate)] 325 mg (65 mg iron) tablet 325 mg PO BID RF: 0 polyethylene glycol 3350 [Miralax] 17 gram Powder In Packet 17 g PO DAILY PRN (Reason: Constipation) Qty: 0 RF: 0 prednisone 5 mg Tablet 5 mg PO QAM Qty: 0 RF: 0 cyanocobalamin (vitamin B-12) [Vitamin B-12] 1,000 mcg Tablet 1,000 mcg PO DAILY Qty: 0 RF: 0 glucosamine sulfate [Glucosamine] 500 mg Tablet 1,000 mg PO DAILY Qty: 0 RF: 0 ondansetron 8 mg Tablet,Disintegrating 8 mg PO TID PRN (Reason: n/v) Qty: 0 RF: 0 levothyroxine [Synthroid] 75 mcg Tablet 75 mcg PO DAILYBB Qty: 0 RF: 0 potassium chloride [K-Tab] 20 mEq Tablet Extended Release 20 meq PO DAILY Qty: 0 RF: 0 pantoprazole [Protonix] 40 mg tablet,delayed release (DR/EC) 40 mg PO BID Qty: 0 RF: 0 cinacalcet [Sensipar] 30 mg tablet 30 mg PO BID Qty: 60 RF: 2 metoprolol succinate [Toprol XL] 25 mg tablet extended release 24 hr 25 mg PO DAILY RF: 0 ascorbic acid (vitamin C) [Vitamin C] 250 mg tablet 250 mg PO DAILY RF: 0 nitroglycerin [Nitrostat] 0.4 mg Tablet, Sublingual 0.4 mg sublingual DIRECTED PRN (Reason: Chest Pain) RF: 0 buspirone 5 mg tablet 5 mg PO TID RF: 0 cholecalciferol (vitamin D3) [Vitamin D3] 25 mcg (1,000 unit) Tablet 25 mcg PO DAILY RF: 0 melatonin 5 mg Tablet 5 - 10 mg PO HS PRN (Reason: Sleep) RF: 0 furosemide [Lasix] 20 mg tablet 20 mg PO MOWEFR RF: 0 lisinopril [Zestril] 2.5 mg tablet 2.5 mg PO DAILY RF: 0 mirtazapine [Remeron] 15 mg tablet 7.5 mg PO HS RF: 0 lidocaine [Lidoderm] 5 % Adhesive Patch,Medicated 1 patch TOPICAL DAILY RF: 0 Azo Cranberry 250 mg Tablet,Chewable 250 mg PO BID RF: 0 Icy Hot Advanced Relief 11-16 % Cream 1 applic TOPICAL UD RF: 0 sucralfate [Carafate] 1 gram tablet 1 g PO QID PRN (Reason: ULCERS) RF: 0 amlodipine [Norvasc] 5 mg tablet 5 mg PO DAILY RF: 0 acetaminophen [Acetaminophen Extra Strength] 500 mg tablet 500 mg PO QAM RF: 0 calcium carbonate [Calcium 600] 600 mg calcium (1,500 mg) tablet 600 mg PO QDD RF: 0 calcitriol [Rocaltrol] 0.5 mcg capsule 1.5 mcg PO DAILY RF: 0 Eliquis 2.5 mg tablet 2.5 mg PO BID RF: 0 Referrals [facility]: [facility] [place] [Primary Care Provider] -
[2021-09-29 11:42] LABS: Basophils # (auto) 0.01 K/uL (0-0.2); Basophils % (auto) 0.1 %; Eosinophils # (auto) 0.04 K/uL (0-0.5); Eosinophils % (auto) 0.4 %; Hematocrit (blood only) 32.2 % (37-47); Immature Granulocytes # (auto) 0.04 K/uL (0.00-0.02); Immature Granulocytes % (auto) 0.4 %; Lymphocytes # (auto) 1.03 K/uL (1.2-3.4); Lymphocytes % (auto) 11.5 %; Mean Corpuscular Hemoglobin 31.6 pg (25-34); Mean Corpuscular Hgb Conc 34.2 g/dL (32-36); Mean Corpuscular Volume 92.5 fL (80-100); Monocytes # (auto) 0.28 K/uL (0.11-0.59); Monocytes % (auto) 3.1 %; Neutrophils # (auto) 7.52 K/uL (1.4-6.5); Neutrophils % (auto) 84.5 %; Platelet Count 267 K/uL (130-400); RDW Coefficient of Variation 13.6 % (11.5-14.5); RDW Standard Deviation 45.9 fL (36.4-46.3); Red Blood Count 3.48 M/uL (4.2-5.4); White Blood Count 8.92 K/uL (4.8-10.8)
[2021-09-29 11:52] LABS: Appearance Urine Turbid (Clear); Bacteria Urine Automated 1+ (Negative); Bilirubin Urine Negative (Negative); Blood Urine 3+ (Negative); Color Urine Yellow; Epithelial Cell Urine Auto >30 /lpf (0-5); Glucose Urine UA Negative (Negative); Ketones Urine Negative (Negative); Leukocyte Esterase Urine 3+ (Negative); Nitrite Urine Positive (Negative); Protein Urine 2+ (Negative); Specific Gravity Urine 1.013 (1.000-1.030); Urobilinogen Urine Negative (Negative); WBC Urine Automated >30 /hpf (0-5); pH Urine 6.5 (4.5-7.5)
--- NOTE | 2021-09-29 11:53 | XRay Report ---
SINGLE VIEW CHEST CLINICAL HISTORY: Generalized weakness. FINDINGS: An AP, portable, upright chest radiograph is compared to study dated 07/19/2021 and correlat ed with chest CT dated 10/20/2019. The patient is status post midline sternotomy. The heart is enlarg ed noting atherosclerotic calcification of the thoracic aorta. The pulmonary vasculature is nonconges nathan. Chronic interstitial thickening is similar to previous. There is bibasilar scarring/atelectasis. No airspace consolidation or large pleural effusion is identified. No pneumothorax is seen. The skel etal structures are osteopenic. The bony thorax is grossly intact. Advanced arthritic change is seen in the shoulders. Superior subluxation of the humeral heads suggest chronic bilateral rotator cuff in jury. IMPRESSION: Cardiomegaly with no active disease in the chest. ACT 112: Negative or not required by law. Electronically signed by: Sridhar Porter M.D. 09/29/2021 11:51 AM
[2021-09-29 11:59] LABS: Albumin Level 3.5 gm/dl (3.4-5.0); BUN Creatinine Ratio 17.5 (10-20); Calcium 10.1 mg/dl (8.5-10.1); Creatinine Clr Calc Pharmacy 47.9 ml/min; Est GFR (African American) 85.2 ml/min; Est GFR (Non-African American) 73.5 ml/min; Potassium 3.8 mmol/L (3.5-5.1)
[2021-09-29 12:02] LABS: Bilirubin,Total 0.5 mg/dl (0.2-1); Globulin 3.4 gm/dl (2.5-4.0); Total Protein 6.9 gm/dl (6.4-8.2)
--- NOTE | 2021-09-29 14:15 | History & Physical Report ---
Date of Service September 29, 2021 Assessment & Plan (1) UTI (urinary tract infection): Plan: Patient has a history of recurrent UTIs. Presents from her [facility] resident following urinalysis evidence of UTI. Has been admitted to the hospital multiple times in the past for UTI. Urine cultures already obtained. Empirically start IV vancomycin and cefepime Await urine cultures (2) Persistent atrial fibrillation: Plan: Atrial fibrillation is rate controlled. On apixaban at home, continue Also patient has IVC filter put in (3) Chronic heart failure with preserved ejection fraction: Plan: Appears compensated, no evidence of edema We'll monitor input and output, daily weight Continue home medications. (4) Hypertension: Plan: Blood pressures under good control Continue home medications Continue to monitor blood pressure. (5) Coronary artery disease: Plan: CAD status post CABG Continue home medications (6) Multiple myeloma: Plan: On steroids at home, will continue. History of Present Illness Chief Complaint: chills Primary Care Provider: [facility] [facility] [employer] 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 Patient has a history of recurrent UTI, and it was called at that in the [facility], her urine was cloudy so that the urinalysis showed evidence of UTI. Of note, patient has been admitted to the hospital multiple times on account of recurrent UTI. During her last hospital stay, her urinalysis was positive for E. coli pansensitive. She completed her course of antibiotics before she was sent back to her [facility]. Today in emergency department urinalysis was done which showed evidence of UTI. She'll temporarily settled on IV vancomycin and cefepime and will be admitted to the hospital for management. CBC and BMP are essentially within normal limits. Vital signs are stable. But in the ED, she was complaining of frequent chills. Allergies Allergy/AdvReac Type Severity Reaction Status Date / Time aspartame Allergy Mild HEADACHES, Verified 09/29/21 12:00 N/V shellfish derived Allergy Mild HEADACHE Verified 09/29/21 12:00 AND N/V Cipro Allergy Unknown ELEVATED Verified 09/20/17 17:44 BLOOD PRESSURE ciprofloxacin Allergy Unknown ELEVATED Verified 09/29/21 12:00 BLOOD PRESSURE Iodinated Contrast Media Allergy Unknown R/T Verified 09/29/21 12:00 SHELLFISH ALLERGY nitrofurantoin Allergy Unknown NAUSEA,ABDOMINAL Verified 09/29/21 12:00 PAIN Quinolones Allergy Unknown CIPRO - Verified 09/29/21 12:00 ELEVATED BLOOD PRESSURE Sulfa (Sulfonamide Allergy Unknown UNKNOWN - Verified 09/29/21 12:00 Antibiotics) PT STATES DOES NOT REMEMBER lorazepam AdvReac Intermediate Paranoia Unverified 09/29/21 14:01 and Confusion Home Medications Medication Instructions Recorded Confirmed Type cyanocobalamin (vitamin B-12) 1,000 mcg PO DAILY #0 09/13/17 09/29/21 History 1,000 mcg tablet (Vitamin B-12) glucosamine sulfate 500 mg tablet 1,000 mg PO DAILY #0 09/13/17 09/29/21 History (Glucosamine) levothyroxine 75 mcg tablet 75 mcg PO DAILYBB #0 09/13/17 09/29/21 History (Synthroid) ondansetron 8 mg disintegrating 8 mg PO TID PRN #0 tab 09/13/17 09/29/21 History tablet polyethylene glycol 3350 17 gram 17 g PO DAILY PRN #0 09/13/17 09/29/21 History oral powder packet (Miralax) prednisone 5 mg tablet 5 mg PO QAM #0 tab 09/13/17 09/29/21 History potassium chloride 20 mEq 20 meq PO DAILY #0 tab 05/14/18 09/29/21 History tablet,extended release (K-Tab) ferrous sulfate 325 mg (65 mg 325 mg PO BID 03/08/19 09/29/21 History iron) tablet (Iron (ferrous sulfate)) metoprolol succinate 25 mg 25 mg PO DAILY 07/27/19 09/29/21 History tablet,extended release 24 hr (Toprol XL) ascorbic acid (vitamin C) 250 mg 250 mg PO DAILY 10/10/19 09/29/21 History tablet (Vitamin C) nitroglycerin 0.4 mg sublingual 0.4 mg SUBLINGUAL DIRECTED PRN 10/20/1907/12 History tablet (Nitrostat) pantoprazole 40 mg tablet,delayed 40 mg PO BID #0 tab 04/18/20 09/29/21 History release (Protonix) cinacalcet 30 mg tablet (Sensipar) 30 mg PO BID #60 tab 05/19/21 09/29/21 Rx furosemide 20 mg tablet (Lasix) 20 mg PO MOWEFR 08/11/21 09/29/21 History lisinopril 2.5 mg tablet (Zestril) 2.5 mg PO DAILY 08/11/21 09/29/21 History melatonin 5 mg tablet 5 - 10 mg PO HS PRN 08/11/21 09/29/21 History mirtazapine 15 mg tablet (Remeron) 7.5 mg PO HS tab 08/21/21 09/29/21 History acetaminophen 500 mg tablet 500 mg PO QAM 08/29/21 09/29/21 History (Acetaminophen Extra Strength) amlodipine 5 mg tablet (Norvasc) 5 mg PO DAILY 08/29/21 09/29/21 History apixaban 2.5 mg tablet (Eliquis) 2.5 mg PO BID 08/29/21 09/29/21 History calcitriol 0.5 mcg capsule 1.5 mcg PO DAILY 08/29/21 09/29/21 History (Rocaltrol) calcium carbonate 600 mg calcium 600 mg PO QDD 08/29/21 09/29/21 History (1,500 mg) tablet (Calcium) camphor 11 %-menthol 16 % topical 1 applic TOPICAL UD 08/29/21 09/29/21 History cream (Icy Hot Advanced Relief) cranberry fruit concentrate 250 mg 250 mg PO BID 08/29/21 09/29/21 History chewable tablet (Azo Cranberry) lidocaine 5 % topical patch 1 patch TOPICAL DAILY 08/29/21 09/29/21 History (Lidoderm) sucralfate 1 gram tablet (Carafate) 1 g PO QID PRN 08/29/21 09/29/21 History buspirone 5 mg tablet 5 mg PO TID 09/29/21 09/29/21 History cholecalciferol (vitamin D3) 25 25 mcg PO DAILY 09/29/21 09/29/21 History mcg (1,000 unit) tablet (Vitamin D3) Past Med/Surg History Medical History Acute GI bleeding (2017) Acute hip pain Adenocarcinoma of rectum (2017) "Diarrhea and rectal bleeding Status post colonoscopy and biopsy 02/09/2017 showing high-grade dysplasia suspicious for adenocarcinoma Status post transrectal resection 02/15/2017 Stage pT2 [id number] Plan for combined radiation and chemotherapy, chemotherapy comprised of Xeloda Status post completion of radiation therapy 05/17/2017. She received 5040 cGy. Dosage of Xeloda was adjusted due to side effect of diarrhea" Anxiety Arthritis Atrial fibrillation with RVR Blood dyscrasia Cancer Chronic steroid use Chronic systolic heart failure Constipation Coronary artery disease DVT (deep venous thrombosis) Electrolyte abnormality Fatigue Gastric ulcer (2014) Gastrointestinal disorder GI bleed Alyse filter in place High cholesterol History of GI bleed History of parathyroid disease Hx of deep venous thrombosis Hypertension Multiple myeloma Osteoporosis Pneumonia (09/2019) Shoulder pain, bilateral Thrombophlebitis Thyroid disease Urinary tract infection Surgical History History of appendectomy History of bilateral salpingo-oophorectomy History of left hip hemiarthroplasty History of rectal surgery S/P CABG (coronary artery bypass graft) (2006) S/P hysterectomy S/P IVC filter Family History Other Coronary heart disease Heart failure Denies family history of Ovarian cancer Prostate cancer Myocardial infarction Breast cancer Colorectal cancer Social History Smoking Status: Never smoker Second Hand Exposure: No; Hx Alcohol Use: No Hx Substance Use: No Preferred Language: Korean Communication Ability: Effective Visual Impairment: Partially Limited Hearing Ability: Hard of Hearing [employer] Required: No Beliefs That Will Affect Care: None marital status: / Current Living Situation: Custodial Current Living Situation Comment: [facility] current occupational status: retired 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 [employer] How many Children do You have: 3 Feels Safe at Home: Yes Childhood Exposure to Second-Hand Smoke: No during the past year weight has: remained stable Dental Care, Regularly: Yes Physical Activity Frequency: Does not Exercise Seatbelt Use: always Sunscreen Use: Yes Assistive Devices: Walker Review of Systems Review of Systems: All systems reviewed are negative, apart from the ones contained in the history. Physical Exam Physical Exam: The patient is awake, alert and oriented 3, well developed and well nourished, normocephalic and atraumatic, lying in bed and in no acute distress. HEENT--PERRL, EOMI, mucous membranes and oropharynx mildly dry Neck--supple. No JVD. No bruits. Thyroid normal, trachea midline, no adenopathy. Heart--normal S1 and S2. No murmurs, rubs or gallops. Lungs--clear bilaterally, no respiratory distress, no accessory muscle use. Abdomen--normal bowel sounds and soft. Mild epigastric and left sided abdominal pain Extremities--no cyanosis or clubbing. No edema. Dermatologic--normal skin turgor, normal color, no abnormal lymph nodes, no rash. Neurologic--cranial nerves II through XII grossly intact. Rheumatologic--normal range of motion. Psychiatric--normal affect. Results & Data Results & Data ([facility]) Vital Signs (Past 12 Hours) Vital Signs Temp Pulse Resp BP Pulse Ox 09/29/21 13:50 74 15 148/74 H 96 09/29/21 13:40 81 17 98 09/29/21 13:30 75 12 97 09/29/21 13:20 70 16 99 09/29/21 13:10 76 17 97 09/29/21 13:00 83 12 149/70 H 95 09/29/21 12:50 70 12 94 09/29/21 12:40 73 12 96 09/29/21 12:30 70 13 97 09/29/21 12:20 84 18 93 09/29/21 12:10 77 17 98 09/29/21 12:00 79 17 141/70 H 96 09/29/21 11:50 76 16 94 09/29/21 11:40 73 13 94 09/29/21 11:30 78 19 94 09/29/21 11:28 82 22 96 09/29/21 11:27 82 17 95 09/29/21 10:56 98.1 F 94 H 18 139/69 97 Laboratory Results Laboratory Results - last 24 hr 09/29/21 09/29/21 09/29/21 11:30 11:35 11:35 WBC 8.92 RBC 3.48 L Hgb 11.0 L Hct 32.2 L MCV 92.5 MCH 31.6 MCHC 34.2 RDW Std Deviation 45.9 RDW Coeff of [place] 13.6 Plt Count 267 MPV 10.0 Immature Gran % (Auto) 0.4 Neut % (Auto) 84.5 Lymph % (Auto) 11.5 [place] % (Auto) 3.1 Eos % (Auto) 0.4 Baso % (Auto) 0.1 Neut # (Auto) 7.52 H Lymph # (Auto) 1.03 L [place] # (Auto) 0.28 Eos # (Auto) 0.04 Baso # (Auto) 0.01 Immature Gran # (Auto) 0.04 H Sodium 135 L Potassium 3.8 Chloride 103 Carbon Dioxide 25 Anion Gap 7.0 BUN 13 Creatinine 0.73 Est Cr Clr Drug Dosing 47.9 Est GFR ( Amer) 85.2 Est GFR (Non-Af Amer) 73.5 BUN/Creatinine Ratio 17.5 Glucose 95 Calcium 10.1 Total Bilirubin 0.5 AST 11 L ALT 15 Alkaline Phosphatase 44 L Total Protein 6.9 Albumin 3.5 Globulin 3.4 Albumin/Globulin Ratio 1.0 Urine Color Yellow Urine Appearance Turbid A Urine pH 6.5 Ur Specific [place] 1.013 Urine Protein 2+ H Urine Glucose (UA) Negative Urine Ketones Negative Urine Blood 3+ H Urine Nitrite Positive A Urine Bilirubin Negative Urine Urobilinogen Negative Ur Leukocyte Esterase 3+ H Urine WBC (Auto) >30 H Urine RBC (Auto) 10-30 H U Hyaline Cast (Auto) 5-10 H U Epithel Cells (Auto) >30 H Urine Bacteria (Auto) 1+ H Urine Yeast Not Reportable COVID-19 Eval Order SARS-CoV-2 (PCR) 09/29/21 09/29/21 11:43 11:43 WBC RBC Hgb Hct MCV MCH MCHC RDW Std Deviation RDW Coeff of [place] Plt Count MPV Immature Gran % (Auto) Neut % (Auto) Lymph % (Auto) [place] % (Auto) Eos % (Auto) Baso % (Auto) Neut # (Auto) Lymph # (Auto) [place] # (Auto) Eos # (Auto) Baso # (Auto) Immature Gran # (Auto) Sodium Potassium Chloride Carbon Dioxide Anion Gap BUN Creatinine Est Cr Clr Drug Dosing Est GFR ( Amer) Est GFR (Non-Af Amer) BUN/Creatinine Ratio Glucose Calcium Total Bilirubin AST ALT Alkaline Phosphatase Total Protein Albumin Globulin Albumin/Globulin Ratio Urine Color Urine Appearance Urine pH Ur Specific [place] Urine Protein Urine Glucose (UA) Urine Ketones Urine Blood Urine Nitrite Urine Bilirubin Urine Urobilinogen Ur Leukocyte Esterase Urine WBC (Auto) Urine RBC (Auto) U Hyaline Cast (Auto) U Epithel Cells (Auto) Urine Bacteria (Auto) Urine Yeast COVID-19 Eval Order Covid19 at [facility] SARS-CoV-2 (PCR) NEGATIVE PG Care Time/CCT Total # of Minutes Spent Total Time Spent with Patient: Total time spent is greater than 50% in coordination of care (as documented) at patient's floor/unit and/or counseling patient: Coding Level of Care Code 13833 Initial Inpt Care Lvl 3 Diagnoses UTI (urinary tract infection) N30.01 Hematuria presence: with hematuria Urinary tract infection type: acute cystitis Persistent atrial fibrillation I48.19 Chronic heart failure with preserved ejection fraction I50.32 Hypertension I10 Coronary artery disease I25.10 Multiple myeloma C90.01 Multiple myeloma remission status: in remission (1) UTI (urinary tract infection) Hematuria presence: with hematuria Urinary tract infection type: acute cystitis Qualified Code(s): N30.01 - Acute cystitis with hematuria (2) Multiple myeloma Multiple myeloma remission status: in remission Qualified Code(s): C90.01 - Multiple myeloma in remission
--- NOTE | 2021-09-29 15:29 | Electrocardiogram Report ---
Test Reason : Blood Pressure : / mmHG Vent. Rate : 079 BPM Atrial Rate : 312 BPM P-R Int : 000 ms QRS Dur : 088 ms QT Int : 392 ms P-R-T Axes : 000 -09 030 degrees QTc Int : 449 ms Atrial fibrillation Poor R wave progression, consider anterior AR vs. lead placement vs. LVH Abnormal ECG When compared with ECG of 02-SEP-2021 15:52, No significant change was found Confirmed by Hussain Poole ([id number]) on 09/29/2021 3:29:22 PM Referred By: [facility] Confirmed By:Hussain Poole
[2021-09-29] MEDS ORDERED: POLYETHYLENE (MIRALAX) 17 GM PACK PO PRN (17:17)
[2021-09-29] MEDS ORDERED: SUCRALFATE 1 GM TAB PO PRN (17:17)
[2021-09-29] MEDS ORDERED: ONDANSETRON 8MG OD TAB PO PRN (17:17)
[2021-09-29] MEDS ORDERED: NON-FORMULARY MEDICATION (Camphor-Menthol [Icy Hot Advanced Relief] 11-16 % Cream) TOP SCH (17:17)
[2021-09-29] MEDS ORDERED: NITROGLYCERIN SL 0.4 MG/TAB TAB SL PRN (17:17)
[2021-09-29 17:53] LABS: Hematocrit (blood only) 32.5 % (37-47); Hemoglobin 10.8 g/dL (12.0-16.0); Mean Corpuscular Hemoglobin 31.4 pg (25-34); Mean Corpuscular Hgb Conc 33.2 g/dL (32-36); Mean Corpuscular Volume 94.5 fL (80-100); Mean Platelet Volume 10.2 fL (7.4-10.4); Platelet Count 255 K/uL (130-400); RDW Coefficient of Variation 13.6 % (11.5-14.5); Red Blood Count 3.44 M/uL (4.2-5.4)
[2021-09-29 18:10] LABS: Calcium 9.4 mg/dl (8.5-10.1); Est GFR (African American) 89.7 ml/min; Est GFR (Non-African American) 77.4 ml/min; Potassium 3.5 mmol/L (3.5-5.1)
[2021-09-29] MEDS: MIRTAZAPINE TAB 15 MG TAB PO SCH (20:32)
[2021-09-29] MEDS: CINACALCET HCL 30 MG TAB PO SCH (20:32)
[2021-09-29] MEDS: APIXABAN 2.5 MG TAB PO SCH (20:32)
[2021-09-29] MEDS: FERROUS SULFATE 325 MG TAB PO SCH (20:33)
[2021-09-29] MEDS: PANTOprazole 40 MG TAB PO SCH (20:33)
[2021-09-29] MEDS: busPIRone 5 MG TAB PO SCH ×2 (20:34→20:40)
[2021-09-29] MEDS: CALCIUM CARBONATE 1250MG TAB PO SCH (20:34)
[2021-09-29] MEDS ORDERED: NON-FORMULARY MEDICATION (Cranberry Fruit Concentrate [Azo Cranberry] 250 mg Tablet,Chewab PO SCH (21:00)
[2021-09-29] MEDS: VANCOMYCIN HCL 1,000 MG in SODIUM CHLORIDE 0.9% 250 ML IV SCH (22:33)
[2021-09-30] MEDS: CEFEPIME 2,000 MG in SYRINGE 0 ML IV SCH ×3 (00:05→23:37)
[2021-09-30] MEDS: LEVOTHYROXINE SODIUM 75 MCG TABLET PO SCH (06:29)
[2021-09-30 06:32] LABS: Hematocrit (blood only) 30.3 % (37-47); Hemoglobin 10.3 g/dL (12.0-16.0); Mean Corpuscular Hemoglobin 31.6 pg (25-34); Mean Corpuscular Volume 92.9 fL (80-100); Mean Platelet Volume 10.2 fL (7.4-10.4); Platelet Count 245 K/uL (130-400); RDW Coefficient of Variation 13.5 % (11.5-14.5); RDW Standard Deviation 46.7 fL (36.4-46.3); Red Blood Count 3.26 M/uL (4.2-5.4); White Blood Count 5.74 K/uL (4.8-10.8)
[2021-09-30 07:18] LABS: Creatinine Clr Calc Pharmacy 51.5 ml/min; Est GFR (African American) 90.5 ml/min; Est GFR (Non-African American) 78.1 ml/min; Potassium 3.3 mmol/L (3.5-5.1)
[2021-09-30] MEDS: amLODIPine BESYLATE 5 MG TAB PO SCH (08:27)
[2021-09-30] MEDS: CINACALCET HCL 30 MG TAB PO SCH ×2 (08:27→20:24)
[2021-09-30] MEDS: LIDOCAINE 5% 1 PATCH TD SCH (08:28)
[2021-09-30] MEDS: PANTOprazole 40 MG TAB PO SCH ×2 (08:28→20:25)
[2021-09-30] MEDS: CYANOCOBALAMIN 500 MCG TABLET (VITAMIN B-12) PO SCH (08:28)
[2021-09-30] MEDS: busPIRone 5 MG TAB PO SCH ×3 (08:28→20:26)
[2021-09-30] MEDS: FERROUS SULFATE 325 MG TAB PO SCH ×2 (08:28→20:24)
[2021-09-30] MEDS: GLUCOSAMINE SULFATE 500 MG CAP PO SCH (08:29)
[2021-09-30] MEDS: METOPROLOL SUCC 25MG EXT REL TAB PO SCH (08:29)
[2021-09-30] MEDS: APIXABAN 2.5 MG TAB PO SCH ×2 (08:29→20:24)
[2021-09-30] MEDS: POTASSIUM CHLORIDE CRTAB 20 MEQ TABCR PO SCH (08:29)
[2021-09-30] MEDS: predniSONE 5 MG TAB PO SCH (08:29)
[2021-09-30] MEDS: ASCORBIC ACID 500 MG TAB PO SCH (08:30)
[2021-09-30] MEDS: ACETAMINOPHEN 500 MG TAB PO SCH (08:31)
[2021-09-30] MEDS: lisinopril 2.5 MG TAB PO SCH (08:31)
[2021-09-30] MEDS: CHOLECALCIFEROL 1,000 UNITS 25 MCG TAB PO SCH (08:31)
[2021-09-30] MEDS: CALCITRIOL 0.25 MCG CAPSULE PO SCH (08:32)
--- NOTE | 2021-09-30 10:55 | Pharmacy Report ---
Pharmacy Vanc AUC Short Note - Date of Service September 30, 2021 - Assessment & Plan Assessment 86 year old F receiving empiric vancomycin and cefepime for treatment of suspected UTI in patient with history of recurrent UTI. Pertinent microbiologic data includes: urine culture growing probable Pseudomonas species. Urine culture from last month growing Pseudomonas aeruginosa and Enterococcus faecium (sensitive to vancomycin). Reasonable to continue vancomycin in light of past culture data. Day # 2 of antimicrobial therapy. Plan Vancomycin * AUC/ROXANN is the preferred PK/PD target for vancomycin * AUC guided dosing is effective and associated with decreased risk of nephrotoxicity compared to traditional trough targets * Received loading dose of 1500 mg (22 mg/kg) IV x 1 yesterday * Ordered dose of 1 gram IV q18h is predicted to achieve target AUC/ROXANN of 400- 600 mg/L.hr and may be associated with a 12 % risk of nephrotoxicity * Will order trough level if vancomycin is to be continued beyond 48 hours Cefepime * Target dose of 2 g IV q8h - reduced to q12h dosing for eCrCl of 51 mL/min Pharmacy will continue to follow and will adjust dose/frequency as necessary. Thank you.
--- NOTE | 2021-09-30 11:24 | Hospitalist Progress Note ---
Date of Service September 30, 2021 Assessment & Plan (1) UTI (urinary tract infection): Plan: Patient has a history of recurrent UTIs. Presents from her [facility] resident following urinalysis evidence of UTI. Has been admitted to the hospital multiple times in the past for UTI. Urine cultures negative so far Empirically continue IV vancomycin and cefepime Will de escalate tomorrow Upon discharge, will recommend ID follow up for possible low dose suppressive antibiotics (2) Persistent atrial fibrillation: Plan: Atrial fibrillation is rate controlled. On apixaban at home, continue Also patient has IVC filter put in (3) Chronic heart failure with preserved ejection fraction: Plan: Appears compensated, no evidence of edema We'll monitor input and output, daily weight Continue home medications. (4) Hypertension: Plan: Blood pressures under good control Continue home medications Continue to monitor blood pressure. (5) Coronary artery disease: Plan: CAD status post CABG Continue home medications (6) Multiple myeloma: Plan: On steroids at home, will continue. Admission and Anticipated Discharge Date Admission Date: September 29, 2021 Anticipated date of discharge: 10/02/21 Subjective Patient seen and examined today, feels better overall Review of Systems Review of Systems: All systems reviewed are negative, apart from the ones contained in the history. Physical Exam Physical Exam: The patient is awake, alert and oriented 3, well developed and well nourished, normocephalic and atraumatic, lying in bed and in no acute distress. HEENT--PERRL, EOMI, mucous membranes and oropharynx mildly dry Neck--supple. No JVD. No bruits. Thyroid normal, trachea midline, no adenopathy. Heart--normal S1 and S2. No murmurs, rubs or gallops. Lungs--clear bilaterally, no respiratory distress, no accessory muscle use. Abdomen--normal bowel sounds and soft. Mild epigastric and left sided abdominal pain Extremities--no cyanosis or clubbing. No edema. Dermatologic--normal skin turgor, normal color, no abnormal lymph nodes, no rash. Neurologic--cranial nerves II through XII grossly intact. Rheumatologic--normal range of motion. Psychiatric--normal affect. Results & Data Results & Data ([facility]) Vital Signs (Past 12 Hours) Vital Signs Temp Pulse Resp BP Pulse Ox 09/30/21 07:30 98.6 F 71 16 148/72 H 96 Laboratory Results Laboratory Results - last 24 hr 09/29/21 09/29/21 09/29/21 11:30 11:35 11:35 WBC 8.92 RBC 3.48 L Hgb 11.0 L Hct 32.2 L MCV 92.5 MCH 31.6 MCHC 34.2 RDW Std Deviation 45.9 RDW Coeff of [place] 13.6 Plt Count 267 MPV 10.0 Immature Gran % (Auto) 0.4 Neut % (Auto) 84.5 Lymph % (Auto) 11.5 [place] % (Auto) 3.1 Eos % (Auto) 0.4 Baso % (Auto) 0.1 Neut # (Auto) 7.52 H Lymph # (Auto) 1.03 L [place] # (Auto) 0.28 Eos # (Auto) 0.04 Baso # (Auto) 0.01 Immature Gran # (Auto) 0.04 H Sodium 135 L Potassium 3.8 Chloride 103 Carbon Dioxide 25 Anion Gap 7.0 BUN 13 Creatinine 0.73 Est Cr Clr Drug Dosing 47.9 Est GFR ( Amer) 85.2 Est GFR (Non-Af Amer) 73.5 BUN/Creatinine Ratio 17.5 Glucose 95 Fasting Glucose Calcium 10.1 Total Bilirubin 0.5 AST 11 L ALT 15 Alkaline Phosphatase 44 L Total Protein 6.9 Albumin 3.5 Globulin 3.4 Albumin/Globulin Ratio 1.0 Specimen Hemolysis Urine Color Yellow Urine Appearance Turbid A Urine pH 6.5 Ur Specific [place] 1.013 Urine Protein 2+ H Urine Glucose (UA) Negative Urine Ketones Negative Urine Blood 3+ H Urine Nitrite Positive A Urine Bilirubin Negative Urine Urobilinogen Negative Ur Leukocyte Esterase 3+ H Urine WBC (Auto) >30 H Urine RBC (Auto) 10-30 H U Hyaline Cast (Auto) 5-10 H U Epithel Cells (Auto) >30 H Urine Bacteria (Auto) 1+ H Urine Yeast Not Reportable Vancomycin Trough COVID-19 Eval Order SARS-CoV-2 (PCR) 09/29/21 09/29/21 09/29/21 11:43 11:43 17:40 WBC 6.20 RBC 3.44 L Hgb 10.8 L Hct 32.5 L MCV 94.5 MCH 31.4 MCHC 33.2 RDW Std Deviation 47.0 H RDW Coeff of [place] 13.6 Plt Count 255 MPV 10.2 Immature Gran % (Auto) Neut % (Auto) Lymph % (Auto) [place] % (Auto) Eos % (Auto) Baso % (Auto) Neut # (Auto) Lymph # (Auto) [place] # (Auto) Eos # (Auto) Baso # (Auto) Immature Gran # (Auto) Sodium Potassium Chloride Carbon Dioxide Anion Gap BUN Creatinine Est Cr Clr Drug Dosing Est GFR ( Amer) Est GFR (Non-Af Amer) BUN/Creatinine Ratio Glucose Fasting Glucose Calcium Total Bilirubin AST ALT Alkaline Phosphatase Total Protein Albumin Globulin Albumin/Globulin Ratio Specimen Hemolysis Urine Color Urine Appearance Urine pH Ur Specific [place] Urine Protein Urine Glucose (UA) Urine Ketones Urine Blood Urine Nitrite Urine Bilirubin Urine Urobilinogen Ur Leukocyte Esterase Urine WBC (Auto) Urine RBC (Auto) U Hyaline Cast (Auto) U Epithel Cells (Auto) Urine Bacteria (Auto) Urine Yeast Vancomycin Trough COVID-19 Eval Order Covid19 at [facility] SARS-CoV-2 (PCR) NEGATIVE 09/29/21 09/29/21 09/30/21 17:40 17:40 05:58 WBC 5.74 RBC 3.26 L Hgb 10.3 L Hct 30.3 L MCV 92.9 MCH 31.6 MCHC 34.0 RDW Std Deviation 46.7 H RDW Coeff of [place] 13.5 Plt Count 245 MPV 10.2 Immature Gran % (Auto) Neut % (Auto) Lymph % (Auto) [place] % (Auto) Eos % (Auto) Baso % (Auto) Neut # (Auto) Lymph # (Auto) [place] # (Auto) Eos # (Auto) Baso # (Auto) Immature Gran # (Auto) Sodium 138 Potassium 3.5 Chloride 106 Carbon Dioxide 22 Anion Gap 10.0 BUN 12 Creatinine 0.70 Est Cr Clr Drug Dosing 50.0 Est GFR ( Amer) 89.7 Est GFR (Non-Af Amer) 77.4 BUN/Creatinine Ratio Glucose Fasting Glucose 96 Calcium 9.4 Total Bilirubin AST ALT Alkaline Phosphatase Total Protein Albumin Globulin Albumin/Globulin Ratio Specimen Hemolysis Urine Color Urine Appearance Urine pH Ur Specific [place] Urine Protein Urine Glucose (UA) Urine Ketones Urine Blood Urine Nitrite Urine Bilirubin Urine Urobilinogen Ur Leukocyte Esterase Urine WBC (Auto) Urine RBC (Auto) U Hyaline Cast (Auto) U Epithel Cells (Auto) Urine Bacteria (Auto) Urine Yeast Vancomycin Trough 19.8 COVID-19 Eval Order SARS-CoV-2 (PCR) 09/30/21 05:58 WBC RBC Hgb Hct MCV MCH MCHC RDW Std Deviation RDW Coeff of [place] Plt Count MPV Immature Gran % (Auto) Neut % (Auto) Lymph % (Auto) [place] % (Auto) Eos % (Auto) Baso % (Auto) Neut # (Auto) Lymph # (Auto) [place] # (Auto) Eos # (Auto) Baso # (Auto) Immature Gran # (Auto) Sodium 137 Potassium 3.3 L Chloride 104 Carbon Dioxide 27 Anion Gap 6.0 BUN 12 Creatinine 0.68 Est Cr Clr Drug Dosing 51.5 Est GFR ( Amer) 90.5 Est GFR (Non-Af Amer) 78.1 BUN/Creatinine Ratio Glucose Fasting Glucose 81 Calcium 9.0 Total Bilirubin AST ALT Alkaline Phosphatase Total Protein Albumin Globulin Albumin/Globulin Ratio Specimen Hemolysis Urine Color Urine Appearance Urine pH Ur Specific [place] Urine Protein Urine Glucose (UA) Urine Ketones Urine Blood Urine Nitrite Urine Bilirubin Urine Urobilinogen Ur Leukocyte Esterase Urine WBC (Auto) Urine RBC (Auto) U Hyaline Cast (Auto) U Epithel Cells (Auto) Urine Bacteria (Auto) Urine Yeast Vancomycin Trough COVID-19 Eval Order SARS-CoV-2 (PCR) PG Care Time/CCT Total # of Minutes Spent Total Time Spent with Patient: Total time spent is greater than 50% in coordination of care (as documented) at patient's floor/unit and/or counseling patient: Coding Level of Care Code 64859 Subseq Hosp Care Lvl 2 Diagnoses UTI (urinary tract infection) N30.01 Hematuria presence: with hematuria Urinary tract infection type: acute cystitis Persistent atrial fibrillation I48.19 Chronic heart failure with preserved ejection fraction I50.32 Hypertension I10 Coronary artery disease I25.10 Multiple myeloma C90.01 Multiple myeloma remission status: in remission (1) UTI (urinary tract infection) Hematuria presence: with hematuria Urinary tract infection type: acute cystitis Qualified Code(s): N30.01 - Acute cystitis with hematuria (2) Multiple myeloma Multiple myeloma remission status: in remission Qualified Code(s): C90.01 - Multiple myeloma in remission
[2021-09-30] MEDS: VANCOMYCIN HCL 1,000 MG in SODIUM CHLORIDE 0.9% 250 ML IV SCH ×3 (16:35→19:44)
[2021-09-30] MEDS: CALCIUM CARBONATE 1250MG TAB PO SCH (16:40)
[2021-09-30] MEDS: MIRTAZAPINE TAB 15 MG TAB PO SCH (20:25)
[2021-10-01] MEDS: LEVOTHYROXINE SODIUM 75 MCG TABLET PO SCH (04:48)
[2021-10-01 05:23] LABS: Hematocrit (blood only) 29.9 % (37-47); Mean Corpuscular Hemoglobin 31.1 pg (25-34); Mean Corpuscular Hgb Conc 33.4 g/dL (32-36); Mean Corpuscular Volume 92.9 fL (80-100); Platelet Count 226 K/uL (130-400); RDW Coefficient of Variation 13.5 % (11.5-14.5); Red Blood Count 3.22 M/uL (4.2-5.4); White Blood Count 6.11 K/uL (4.8-10.8)
[2021-10-01 05:49] LABS: Calcium 8.7 mg/dl (8.5-10.1); Creatinine Clr Calc Pharmacy 55.5 ml/min; Est GFR (African American) 92.8 ml/min; Est GFR (Non-African American) 80.1 ml/min; Potassium 3.3 mmol/L (3.5-5.1)
[2021-10-01] MEDS: PANTOprazole 40 MG TAB PO SCH ×2 (09:50→21:54)
[2021-10-01] MEDS: busPIRone 5 MG TAB PO SCH ×3 (09:51→21:53)
[2021-10-01] MEDS: CYANOCOBALAMIN 500 MCG TABLET (VITAMIN B-12) PO SCH (09:51)
[2021-10-01] MEDS: APIXABAN 2.5 MG TAB PO SCH ×2 (09:51→21:53)
[2021-10-01] MEDS: CINACALCET HCL 30 MG TAB PO SCH ×2 (09:51→21:53)
[2021-10-01] MEDS: CHOLECALCIFEROL 1,000 UNITS 25 MCG TAB PO SCH (09:52)
[2021-10-01] MEDS: ACETAMINOPHEN 500 MG TAB PO SCH (09:52)
[2021-10-01] MEDS: amLODIPine BESYLATE 5 MG TAB PO SCH (09:52)
[2021-10-01] MEDS: METOPROLOL SUCC 25MG EXT REL TAB PO SCH (09:53)
[2021-10-01] MEDS: lisinopril 2.5 MG TAB PO SCH (09:53)
[2021-10-01] MEDS: FERROUS SULFATE 325 MG TAB PO SCH ×2 (09:53→21:53)
[2021-10-01] MEDS: GLUCOSAMINE SULFATE 500 MG CAP PO SCH (09:53)
[2021-10-01] MEDS: predniSONE 5 MG TAB PO SCH (09:54)
[2021-10-01] MEDS: ASCORBIC ACID 500 MG TAB PO SCH (09:54)
[2021-10-01] MEDS: CALCITRIOL 0.25 MCG CAPSULE PO SCH (09:54)
[2021-10-01] MEDS: POTASSIUM CHLORIDE CRTAB 20 MEQ TABCR PO SCH (09:54)
[2021-10-01] MEDS: FUROSEMIDE 20 MG TAB PO SCH (10:52)
[2021-10-01] MEDS: LIDOCAINE 5% 1 PATCH TD SCH (10:54)
--- NOTE | 2021-10-01 11:31 | Hospitalist Progress Note ---
Date of Service October 01, 2021 Assessment & Plan (1) UTI (urinary tract infection): Plan: Patient has a history of recurrent UTIs. Presents from her [place] [facility] resident following urinalysis evidence of UTI. Has been admitted to the hospital multiple times in the past for UTI. Urine cultures positive for Pseudomonas aeruginosa pansensitive We will continue IV cefepime Will transition to oral antibiotics before discharge Upon discharge, will recommend ID follow up for possible low dose suppressive antibiotics (2) Persistent atrial fibrillation: Plan: Atrial fibrillation is rate controlled. On apixaban at home, continue Also patient has IVC filter put in (3) Chronic heart failure with preserved ejection fraction: Plan: Appears compensated, no evidence of edema We'll monitor input and output, daily weight Continue home medications. (4) Hypertension: Plan: Blood pressures under good control Continue home medications Continue to monitor blood pressure. (5) Coronary artery disease: Plan: CAD status post CABG Continue home medications (6) Multiple myeloma: Plan: On steroids at home, will continue. Admission and Anticipated Discharge Date Admission Date: September 29, 2021 Subjective Patient seen and examined this morning, although she feels overall better, but states she could not sleep last night. Review of Systems Review of Systems: All systems reviewed are negative, apart from the ones contained in the history. Physical Exam Physical Exam: The patient is awake, alert and oriented 3, well developed and well nourished, normocephalic and atraumatic, lying in bed and in no acute distress. HEENT--PERRL, EOMI, mucous membranes and oropharynx mildly dry Neck--supple. No JVD. No bruits. Thyroid normal, trachea midline, no adenopathy. Heart--normal S1 and S2. No murmurs, rubs or gallops. Lungs--clear bilaterally, no respiratory distress, no accessory muscle use. Abdomen--normal bowel sounds and soft. Mild epigastric and left sided abdominal pain Extremities--no cyanosis or clubbing. No edema. Dermatologic--normal skin turgor, normal color, no abnormal lymph nodes, no rash. Neurologic--cranial nerves II through XII grossly intact. Rheumatologic--normal range of motion. Psychiatric--normal affect. Results & Data Results & Data ([facility]) Vital Signs (Past 12 Hours) Vital Signs Temp Pulse Resp BP Pulse Ox 10/01/21 07:34 98.1 F 70 16 128/54 L 95 09/30/21 23:37 98.1 F 77 18 152/72 H 94 Laboratory Results 09/29/21 11:30 Urine Culture - Final Urine,Clean Catch Pseudomonas aeruginosa PG Care Time/CCT Total # of Minutes Spent Total Time Spent with Patient: Total time spent is greater than 50% in coordination of care (as documented) at patient's floor/unit and/or counseling patient: Coding Level of Care Code 19388 Subseq Hosp Care Lvl 2 Diagnoses UTI (urinary tract infection) N30.01 Hematuria presence: with hematuria Urinary tract infection type: acute cystitis Persistent atrial fibrillation I48.19 Chronic heart failure with preserved ejection fraction I50.32 Hypertension I10 Coronary artery disease I25.10 Multiple myeloma C90.01 Multiple myeloma remission status: in remission (1) UTI (urinary tract infection) Hematuria presence: with hematuria Urinary tract infection type: acute cystitis Qualified Code(s): N30.01 - Acute cystitis with hematuria (2) Multiple myeloma Multiple myeloma remission status: in remission Qualified Code(s): C90.01 - Multiple myeloma in remission
[2021-10-01] MEDS: CEFEPIME 2,000 MG in SYRINGE 0 ML IV SCH ×2 (12:27→23:44)
[2021-10-01] MEDS: CALCIUM CARBONATE 1250MG TAB PO SCH (16:47)
[2021-10-01] MEDS: MIRTAZAPINE TAB 15 MG TAB PO SCH (21:53)
[2021-10-02] MEDS: LEVOTHYROXINE SODIUM 75 MCG TABLET PO SCH (04:54)
[2021-10-02 07:33] LABS: Creatinine Clr Calc Pharmacy 59.3 ml/min; Est GFR (African American) 94.8 ml/min; Est GFR (Non-African American) 81.8 ml/min
[2021-10-02] MEDS: ASCORBIC ACID 500 MG TAB PO SCH (07:58)
[2021-10-02] MEDS: LIDOCAINE 5% 1 PATCH TD SCH (07:58)
[2021-10-02] MEDS: predniSONE 5 MG TAB PO SCH (07:58)
[2021-10-02] MEDS: FERROUS SULFATE 325 MG TAB PO SCH ×2 (07:59→19:21)
[2021-10-02] MEDS: CYANOCOBALAMIN 500 MCG TABLET (VITAMIN B-12) PO SCH (07:59)
[2021-10-02] MEDS: METOPROLOL SUCC 25MG EXT REL TAB PO SCH (07:59)
[2021-10-02] MEDS: lisinopril 2.5 MG TAB PO SCH (07:59)
[2021-10-02] MEDS: GLUCOSAMINE SULFATE 500 MG CAP PO SCH (07:59)
[2021-10-02] MEDS: ACETAMINOPHEN 500 MG TAB PO SCH (07:59)
[2021-10-02] MEDS: CALCITRIOL 0.25 MCG CAPSULE PO SCH (07:59)
[2021-10-02] MEDS: busPIRone 5 MG TAB PO SCH ×3 (07:59→19:21)
[2021-10-02] MEDS: CINACALCET HCL 30 MG TAB PO SCH ×2 (07:59→19:22)
[2021-10-02] MEDS: CHOLECALCIFEROL 1,000 UNITS 25 MCG TAB PO SCH (07:59)
[2021-10-02] MEDS: PANTOprazole 40 MG TAB PO SCH ×2 (07:59→19:22)
[2021-10-02] MEDS: POTASSIUM CHLORIDE CRTAB 20 MEQ TABCR PO SCH (07:59)
[2021-10-02] MEDS: amLODIPine BESYLATE 5 MG TAB PO SCH (08:00)
[2021-10-02] MEDS: APIXABAN 2.5 MG TAB PO SCH ×2 (08:00→19:21)
--- NOTE | 2021-10-02 15:11 | Hospitalist Progress Note ---
Date of Service October 02, 2021 Assessment & Plan (1) UTI (urinary tract infection): Plan: Patient has a history of recurrent UTIs. Presents from her [place] [facility] resident following urinalysis evidence of UTI. Has been admitted to the hospital multiple times in the past for UTI. Urine cultures positive for Pseudomonas aeruginosa pansensitive We will continue IV cefepime Will transition to oral antibiotics before discharge Upon discharge, will recommend ID follow up for possible low dose suppressive antibiotics (2) Persistent atrial fibrillation: Plan: Atrial fibrillation is rate controlled. On apixaban at home, continue Also patient has IVC filter put in (3) Chronic heart failure with preserved ejection fraction: Plan: Appears compensated, no evidence of edema We'll monitor input and output, daily weight Continue home medications. (4) Hypertension: Plan: Blood pressures under good control Continue home medications Continue to monitor blood pressure. (5) Coronary artery disease: Plan: CAD status post CABG Continue home medications (6) Multiple myeloma: Plan: On steroids at home, will continue. Admission and Anticipated Discharge Date Admission Date: September 29, 2021 anticipate discharge back to her NH in the next 24 hrs Subjective Patient seen and examined this morning, was a bit teary, says she thought someone wanted to kidnap her last night Review of Systems Review of Systems: All systems reviewed are negative, apart from the ones contained in the history. Physical Exam Physical Exam: The patient is awake, alert and oriented 3, well developed and well nourished, normocephalic and atraumatic, lying in bed and in no acute distress. HEENT--PERRL, EOMI, mucous membranes and oropharynx mildly dry Neck--supple. No JVD. No bruits. Thyroid normal, trachea midline, no adenopathy. Heart--normal S1 and S2. No murmurs, rubs or gallops. Lungs--clear bilaterally, no respiratory distress, no accessory muscle use. Abdomen--normal bowel sounds and soft. Mild epigastric and left sided abdominal pain Extremities--no cyanosis or clubbing. No edema. Dermatologic--normal skin turgor, normal color, no abnormal lymph nodes, no rash. Neurologic--cranial nerves II through XII grossly intact. Rheumatologic--normal range of motion. Psychiatric--normal affect. Results & Data Results & Data ([facility]) Vital Signs (Past 12 Hours) Vital Signs Temp Pulse Resp BP Pulse Ox 11/11/21 15:05 97.7 F 95 H 16 151/98 H 98 10/02/21 07:20 98.1 F 89 16 137/72 94 Laboratory Results Laboratory Results - last 24 hr 10/02/21 06:34 Creatinine 0.59 L Est Cr Clr Drug Dosing 59.3 Est GFR ( Amer) 94.8 Est GFR (Non-Af Amer) 81.8 PG Care Time/CCT Total # of Minutes Spent Total Time Spent with Patient: Total time spent is greater than 50% in coordination of care (as documented) at patient's floor/unit and/or counseling patient: Coding Level of Care Code 07640 Subseq Hosp Care Lvl 2 Diagnoses UTI (urinary tract infection) N30.01 Hematuria presence: with hematuria Urinary tract infection type: acute cystitis Persistent atrial fibrillation I48.19 Chronic heart failure with preserved ejection fraction I50.32 Hypertension I10 Coronary artery disease I25.10 Multiple myeloma C90.01 Multiple myeloma remission status: in remission (1) UTI (urinary tract infection) Hematuria presence: with hematuria Urinary tract infection type: acute cystitis Qualified Code(s): N30.01 - Acute cystitis with hematuria (2) Multiple myeloma Multiple myeloma remission status: in remission Qualified Code(s): C90.01 - Multiple myeloma in remission
[2021-10-02] MEDS: CALCIUM CARBONATE 1250MG TAB PO SCH (16:29)
[2021-10-02] MEDS: MIRTAZAPINE TAB 15 MG TAB PO SCH (19:21)
[2021-10-03] MEDS: LEVOTHYROXINE SODIUM 75 MCG TABLET PO SCH (05:38)
[2021-10-03 06:20] LABS: Basophils # (auto) 0.05 K/uL (0-0.2); Basophils % (auto) 0.7 %; Eosinophils % (auto) 2.8 %; Hematocrit (blood only) 32.4 % (37-47); Immature Granulocytes # (auto) 0.05 K/uL (0.00-0.02); Immature Granulocytes % (auto) 0.7 %; Lymphocytes # (auto) 1.64 K/uL (1.2-3.4); Lymphocytes % (auto) 23.1 %; Mean Corpuscular Hemoglobin 31.7 pg (25-34); Mean Corpuscular Volume 93.4 fL (80-100); Mean Platelet Volume 9.7 fL (7.4-10.4); Monocytes # (auto) 0.83 K/uL (0.11-0.59); Monocytes % (auto) 11.7 %; Neutrophils # (auto) 4.33 K/uL (1.4-6.5); Platelet Count 249 K/uL (130-400); RDW Coefficient of Variation 13.6 % (11.5-14.5); RDW Standard Deviation 46.2 fL (36.4-46.3); Red Blood Count 3.47 M/uL (4.2-5.4)
[2021-10-03 07:19] LABS: BUN Creatinine Ratio 24.3 (10-20); Calcium 10.2 mg/dl (8.5-10.1); Est GFR (African American) 98.3 ml/min; Est GFR (Non-African American) 84.8 ml/min
[2021-10-03] MEDS: amLODIPine BESYLATE 5 MG TAB PO SCH (08:57)
[2021-10-03] MEDS: ACETAMINOPHEN 500 MG TAB PO SCH (08:57)
[2021-10-03] MEDS: APIXABAN 2.5 MG TAB PO SCH (08:58)
[2021-10-03] MEDS: ASCORBIC ACID 500 MG TAB PO SCH (08:58)
[2021-10-03] MEDS: CALCITRIOL 0.25 MCG CAPSULE PO SCH (09:00)
[2021-10-03] MEDS: CHOLECALCIFEROL 1,000 UNITS 25 MCG TAB PO SCH (09:00)
[2021-10-03] MEDS: CINACALCET HCL 30 MG TAB PO SCH (09:01)
[2021-10-03] MEDS: CYANOCOBALAMIN 500 MCG TABLET (VITAMIN B-12) PO SCH (09:01)
[2021-10-03] MEDS: FERROUS SULFATE 325 MG TAB PO SCH (09:01)
[2021-10-03] MEDS: FUROSEMIDE 20 MG TAB PO SCH (09:02)
[2021-10-03] MEDS: LIDOCAINE 5% 1 PATCH TD SCH (09:39)
[2021-10-03] MEDS: lisinopril 2.5 MG TAB PO SCH (09:41)
[2021-10-03] MEDS: METOPROLOL SUCC 25MG EXT REL TAB PO SCH (09:42)
[2021-10-03] MEDS: GLUCOSAMINE SULFATE 500 MG CAP PO SCH (09:43)
[2021-10-03] MEDS: busPIRone 5 MG TAB PO SCH (09:45)
[2021-10-03] MEDS: predniSONE 5 MG TAB PO SCH (09:51)
[2021-10-03] MEDS: POTASSIUM CHLORIDE CRTAB 20 MEQ TABCR PO SCH (09:51)
[2021-10-03] MEDS: PANTOprazole 40 MG TAB PO SCH (09:52)
--- NOTE | 2021-10-03 14:37 | Discharge Summary ---
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 Patient has a history of recurrent UTI, and it was called at that in the senior care, her urine was cloudy so that the urinalysis showed evidence of UTI. Of note, patient has been admitted to the hospital multiple times on account of recurrent UTI. During her last hospital stay, her urinalysis was positive for E. coli pansensitive. She completed her course of antibiotics before she was sent back to her senior care. Today in emergency department urinalysis was done which showed evidence of UTI. She'll temporarily settled on IV vancomycin and cefepime and will be admitted to the hospital for management. CBC and BMP are essentially within normal limits. Vital signs are stable. But in the ED, she was complaining of frequent chills. Principal Diagnosis Pseudomonas UTI Discharge Exam The patient is awake, alert and oriented 3, well developed and well nourished, normocephalic and atraumatic, lying in bed and in no acute distress. HEENT--PERRL, EOMI, mucous membranes and oropharynx mildly dry Neck--supple. No JVD. No bruits. Thyroid normal, trachea midline, no adenopathy. Heart--normal S1 and S2. No murmurs, rubs or gallops. Lungs--clear bilaterally, no respiratory distress, no accessory muscle use. Abdomen--normal bowel sounds and soft. Mild epigastric and left sided abdominal pain Extremities--no cyanosis or clubbing. No edema. Dermatologic--normal skin turgor, normal color, no abnormal lymph nodes, no rash. Neurologic--cranial nerves II through XII grossly intact. Rheumatologic--normal range of motion. Psychiatric--normal affect. Discharge Data Allergies Allergy/AdvReac Type Severity Reaction Status Date / Time aspartame Allergy Mild HEADACHES, Verified 09/29/21 12:00 N/V shellfish derived Allergy Mild HEADACHE Verified 09/29/21 12:00 AND N/V Cipro Allergy Unknown ELEVATED Verified 09/20/17 17:44 BLOOD PRESSURE ciprofloxacin Allergy Unknown ELEVATED Verified 09/29/21 12:00 BLOOD PRESSURE Iodinated Contrast Media Allergy Unknown R/T Verified 09/29/21 12:00 SHELLFISH ALLERGY nitrofurantoin Allergy Unknown NAUSEA,ABDOMINAL Verified 09/29/21 12:00 PAIN Quinolones Allergy Unknown CIPRO - Verified 09/29/21 12:00 ELEVATED BLOOD PRESSURE Sulfa (Sulfonamide Allergy Unknown UNKNOWN - Verified 09/29/21 12:00 Antibiotics) PT STATES DOES NOT REMEMBER lorazepam AdvReac Intermediate Paranoia Unverified 09/29/21 14:01 and Confusion Consultations 09/29/21 13:19 ED Decision to Admit Stat Hospital Course (1) UTI (urinary tract infection): Patient has a history of recurrent UTIs. Presents from her senior care resident following urinalysis evidence of UTI. Has been admitted to the hospital multiple times in the past for UTI. Urine cultures positive for Pseudomonas aeruginosa pansensitive We will continue IV cefepime Was transition to oral Levaquin 500mg before discharge Upon discharge, will recommend ID follow up for possible low dose suppressive antibiotics (2) Persistent atrial fibrillation: Atrial fibrillation is rate controlled. On apixaban at home, continue Also patient has IVC filter put in (3) Chronic heart failure with preserved ejection fraction: Appears compensated, no evidence of edema We'll monitor input and output, daily weight Continue home medications. (4) Hypertension: Blood pressures under good control Continue home medications Continue to monitor blood pressure. (5) Coronary artery disease: CAD status post CABG Continue home medications (6) Multiple myeloma: On steroids at home, will continue. Total Time Total Time Spent Total Time Spent (In Minutes): 35 min Discharge Plan Discharge Items Patient Disposition: Personal Assisted Reason For Visit: UTI Discharge Diagnosis: Pseudomonas UTI Condition on Discharge: Good Activity: Resume your previous activity Bathing: No limitations Non-emergency contact: Primary Care Provider Call non-emergency contact if: you have any medication questions and your symptoms worsen Follow-up/Referrals: [facility] [Primary Care Provider] - Diet: Regular Addtl Attending Provider Instructions: Please make appointment to see and follow an Infectious Diseases expert on accou nt of your recurrent UTI Pending Studies at Discharge: No Stand-Alone Forms: [employer], Smoking Cessation Skilled Items Patient informed of condition?: Yes DNR: No Discharge Level of Care: Skilled Communicable Disease: No Discharge Prognosis: Stable Lines: None Urinary Catheter: No Medications and DC Order Prescriptions: New levofloxacin 500 mg tablet 500 mg PO DAILY 5 Days Qty: 5 RF: 0 Continued ferrous sulfate [Iron (ferrous sulfate)] 325 mg (65 mg iron) tablet 325 mg PO BID RF: 0 polyethylene glycol 3350 [Miralax] 17 gram Powder In Packet 17 g PO DAILY PRN (Reason: Constipation) Qty: 0 RF: 0 prednisone 5 mg Tablet 5 mg PO QAM Qty: 0 RF: 0 cyanocobalamin (vitamin B-12) [Vitamin B-12] 1,000 mcg Tablet 1,000 mcg PO DAILY Qty: 0 RF: 0 glucosamine sulfate [Glucosamine] 500 mg Tablet 1,000 mg PO DAILY Qty: 0 RF: 0 ondansetron 8 mg Tablet,Disintegrating 8 mg PO TID PRN (Reason: n/v) Qty: 0 RF: 0 levothyroxine [Synthroid] 75 mcg Tablet 75 mcg PO DAILYBB Qty: 0 RF: 0 potassium chloride [K-Tab] 20 mEq Tablet Extended Release 20 meq PO DAILY Qty: 0 RF: 0 pantoprazole [Protonix] 40 mg tablet,delayed release (DR/EC) 40 mg PO BID Qty: 0 RF: 0 cinacalcet [Sensipar] 30 mg tablet 30 mg PO BID Qty: 60 RF: 2 metoprolol succinate [Toprol XL] 25 mg tablet extended release 24 hr 25 mg PO DAILY RF: 0 ascorbic acid (vitamin C) [Vitamin C] 250 mg tablet 250 mg PO DAILY RF: 0 nitroglycerin [Nitrostat] 0.4 mg Tablet, Sublingual 0.4 mg sublingual DIRECTED PRN (Reason: Chest Pain) RF: 0 buspirone 5 mg tablet 5 mg PO TID RF: 0 cholecalciferol (vitamin D3) [Vitamin D3] 25 mcg (1,000 unit) Tablet 25 mcg PO DAILY RF: 0 melatonin 5 mg Tablet 5 - 10 mg PO HS PRN (Reason: Sleep) RF: 0 furosemide [Lasix] 20 mg tablet 20 mg PO MOWEFR RF: 0 lisinopril [Zestril] 2.5 mg tablet 2.5 mg PO DAILY RF: 0 mirtazapine [Remeron] 15 mg tablet 7.5 mg PO HS RF: 0 lidocaine [Lidoderm] 5 % Adhesive Patch,Medicated 1 patch TOPICAL DAILY RF: 0 Azo Cranberry 250 mg Tablet,Chewable 250 mg PO BID RF: 0 Icy Hot Advanced Relief 11-16 % Cream 1 applic TOPICAL UD RF: 0 sucralfate [Carafate] 1 gram tablet 1 g PO QID PRN (Reason: ULCERS) RF: 0 amlodipine [Norvasc] 5 mg tablet 5 mg PO DAILY RF: 0 acetaminophen [Acetaminophen Extra Strength] 500 mg tablet 500 mg PO QAM RF: 0 calcium carbonate [Calcium 600] 600 mg calcium (1,500 mg) tablet 600 mg PO QDD RF: 0 calcitriol [Rocaltrol] 0.5 mcg capsule 1.5 mcg PO DAILY RF: 0 Eliquis 2.5 mg tablet 2.5 mg PO BID RF: 0 Discharge Orders: Discharge Order (Routine); Ordered 10/03/21 Ordered By: Aiyana Stokes/Other Patient Handouts: Urinary Tract Infections in Women Admission Data Admit Date/Time: 09/29/21 14:05 Attending Provider: Aiyana Chen Admit Provider: Aiyana Chen [facility] Other Providers: Nawaf Rubalcava Other Interventions: Discharge Summary Assessment (RN) Last Done: 10/03/21 11:38 Coding Level of Care Code D/C DAY MANAGEMENT >30 MINS Diagnoses UTI (urinary tract infection) N30.01 Hematuria presence: with hematuria Urinary tract infection type: acute cystitis Persistent atrial fibrillation I48.19 Chronic heart failure with preserved ejection fraction I50.32 Hypertension I10 Coronary artery disease I25.10 Multiple myeloma C90.01 Multiple myeloma remission status: in remission
== END 2021-10-03 12:20 | disposition home or self-care (01) ==
LOC: ED 10:54 → INTOOBSV 14:05 → 3N 14:05

== ENCOUNTER 2021-10-03 20:51 | Observation (INO) ==
[2021-10-03] MEDS ORDERED: SODIUM CHLORIDE 0.9% 1000ML 1,000 ML IV SCH (22:30)
--- NOTE | 2021-10-03 23:04 | XRay Report ---
XR chest 1V portable CLINICAL HISTORY: Stroke Like Symptoms TECHNIQUE: Single frontal radiograph of the chest was obtained. Comparison: Comparison is made to chest one view 09/29/2021 FINDINGS: No lines and tubes are seen. Cardiomegaly is noted. Calcified and tortuous aorta noted. There is trac e atelectasis at the left lung base. No evidence of pleural effusion or pneumothorax. Chronic degener ative changes and right subluxation of the glenohumeral joint noted. IMPRESSION: No acute chest disease. ACT 112: Negative or not required by law. Electronically signed by: Myles Yousif M.D. 10/03/2021 11:03 PM
[2021-10-03 23:10] LABS: Basophils # (auto) 0.03 K/uL (0-0.2); Basophils % (auto) 0.4 %; Eosinophils # (auto) 0.13 K/uL (0-0.5); Eosinophils % (auto) 1.8 %; Hematocrit (blood only) 33.2 % (37-47); Hemoglobin 11.1 g/dL (12.0-16.0); Immature Granulocytes # (auto) 0.06 K/uL (0.00-0.02); Immature Granulocytes % (auto) 0.8 %; Lymphocytes # (auto) 1.83 K/uL (1.2-3.4); Lymphocytes % (auto) 25.6 %; Mean Corpuscular Hemoglobin 31.4 pg (25-34); Mean Corpuscular Hgb Conc 33.4 g/dL (32-36); Mean Corpuscular Volume 93.8 fL (80-100); Mean Platelet Volume 10.1 fL (7.4-10.4); Monocytes % (auto) 11.2 %; Neutrophils # (auto) 4.29 K/uL (1.4-6.5); Neutrophils % (auto) 60.2 %; Platelet Count 291 K/uL (130-400); RDW Coefficient of Variation 13.6 % (11.5-14.5); RDW Standard Deviation 46.9 fL (36.4-46.3); Red Blood Count 3.54 M/uL (4.2-5.4); White Blood Count 7.14 K/uL (4.8-10.8)
[2021-10-03 23:25] LABS: Partial Thromboplastin Ratio 0.9; Partial Thromboplastin Time 23.1 Seconds (21.0-31.0); Prothrombin Time 10.4 Seconds (9.0-12.0)
[2021-10-03 23:56] LABS: Alanine Aminotransferase 15 U/L (12-78); Albumin Globulin Ratio 0.9 (0.9-2); Albumin Level 3.3 gm/dl (3.4-5.0); Alkaline Phosphatase 43 U/L (45-117); Aspartate Aminotransferase 11 U/L (15-37); BUN Creatinine Ratio 22.6 (10-20); Bilirubin,Total 0.4 mg/dl (0.2-1); Blood Urea Nitrogen 19 mg/dl (7-18); Calcium 10.4 mg/dl (8.5-10.1); Carbon Dioxide 23 mmol/L (21-32); Chloride 105 mmol/L (98-107); Creatinine Clr Calc Pharmacy 49.3 ml/min; Globulin 3.8 gm/dl (2.5-4.0); Glucose 91 mg/dl (70-99); Magnesium 1.8 mg/dl (1.8-2.4); Potassium 3.3 mmol/L (3.5-5.1); Sodium 136 mmol/L (136-145); Total Protein 7.1 gm/dl (6.4-8.2); Troponin I < 0.015 ng/ml (0-0.045)
--- NOTE | 2021-10-04 03:20 | Emergency Department Note ---
Impression & Plan Stroke-like symptoms, Dysarthria, Facial droop ED Provider Note INFORMANT: Patient and family ED PROVIDER(S): Juancarlos Dodd MD CHIEF COMPLAINT: Strokelike symptoms PLAN: Disposition: Admitted Condition: Good Outpatient prescription management: none Referral: None MEDICAL DECISION MAKING: Patient presented because of strokelike symptoms. Symptoms are resolved at the time of my evaluation. She underwent a stroke work-up. Unfortunate she is allergic to IV contrast and only a dry CT was performed. There was no evidence of acute ischemia or hemorrhage. Chronic findings noted. The patient's blood work was unremarkable. Her hypokalemia that was noted earlier had improved. U rinalysis was ordered but is pending. The patient has A. fib on her ECG. She is currently anticoagulated. LFTs and troponin were unremarkable. Given the strokelike symptoms further management in the hospital was felt to be appropriate. Consultation was made with Dr. Stanford Crawley of the [facility] service. Patient was evaluated in the ER for further management. Triage Nursing notes reviewed and agree them. Vital Signs: reviewed and remarkable for no significant abnormalities Differential diagnosis: CVA, TIA infection, dehydration, metabolic abnormality, hypo/hyperglycemia, electrolyte disturbance, anemia, hypoxia, cardiac sources, intracerebral event, toxicologic, neurologic, as well as other pathologies. Diagnostics interpreted by me: ECG: Twelve-lead ECG reveals atrial fibrillation at [address] elevation or depression. Nonspecific ST. Normal axis. Cardiac Monitoring: Cardiac monitoring ordered by me: The patient was placed on continuous cardiac monitoring and observed. It revealed atrial fibrillation at 75 bpm. Imaging studies: Head CT: A noncontrast CT scan of the head was performed and was negative for tumor, fracture, intracranial hemorrhage, or other acute pathology. HPI: The patient is a 86 year old female who presents to the Emergency Room with complaints of dysarthria. This started just prior to arrival and is resolved. The patient and family also notes the following associated symptoms, facial droop on the right. The patient has been given no medication forrelieving factors. Current pain is rated as 0/10. Family states patient is back to baseline. She has a history of TIA earlier this year. Patient was recently in the hospital for UTI. Pt denies LOC, headache, fevers, chills, diaphoresis, visual changes, neck pain, chest pain, breathing difficulties, nausea, vomiting, abdominal pain, back pain, melena, hematochezia, urinary symptoms, numbness, rash, or other complaints. ROS: See above HPI for pertinent positives & negatives. A total of 10 systems reviewed and were otherwise negative. PAST MEDICAL HISTORY:See Below , TIA, UTI, A. fib PAST SURGICAL HISTORY:See Below, FAMILY HISTORY:See Below SOCIAL HISTORY:See Below, retired HOME MEDICATIONS:See Below ALLERGIES:See Below VITALS:See Below PHYSICAL EXAMINATION: GENERAL: Awake, alert, well-appearing, in no distress HENT: Normocephalic, atraumatic. Oropharynx unremarkable. EYES: Normal conjunctiva. Sclera non-icteric. PERRLA. EOMI. NECK: Inspection normal. Non-tender. Supple. No nuchal rigidity. FROM. No masses. RESPIRATORY: Clear to auscultation. No wheezes. No rales. Normal respiratory effort. CARDIAC: Normal rate. Normal rhythm. No murmurs. No rubs. Extremities warm and well perfused. Pulses equal. No JVD. GI: Soft, non-distended. No tenderness to palpation. No rebound or guarding. No masses. RECTAL: Deferred. MUSCULOSKELETAL: Atraumatic. Chest examination reveals no tenderness. The back is symmetrical on inspection without obvious abnormality. There is no CVA tenderness to palpation. No joint edema. LOWER EXTREMITIES: Calves are equal size bilaterally and non-tender. No edema. No discoloration. NEURO: Normal sensorium. No sensory or motor deficits noted. Speech normal. No drift. Cranial nerves II through XII intact. SKIN: No rash or jaundice noted. Juancarlos Dodd MD Past Med/Surg History Medical History Acute GI bleeding (2017) Acute hip pain Adenocarcinoma of rectum (2017) "Diarrhea and rectal bleeding Status post colonoscopy and biopsy 02/09/2017 showing high-grade dysplasia suspicious for adenocarcinoma Status post transrectal resection 02/15/2017 Stage pT2 [id number] Plan for combined radiation and chemotherapy, chemotherapy comprised of Xeloda Status post completion of radiation therapy 05/17/2017. She received 5040 cGy. Dosage of Xeloda was adjusted due to side effect of diarrhea" Anxiety Arthritis Atrial fibrillation with RVR Blood dyscrasia Cancer Chronic steroid use Chronic systolic heart failure Constipation Coronary artery disease DVT (deep venous thrombosis) Electrolyte abnormality Fatigue Gastric ulcer (2014) Gastrointestinal disorder GI bleed [place] filter in place High cholesterol History of GI bleed History of parathyroid disease Hx of deep venous thrombosis Hypertension Multiple myeloma Osteoporosis Pneumonia (09/2019) Shoulder pain, bilateral Thrombophlebitis Thyroid disease Urinary tract infection Surgical History History of appendectomy History of bilateral salpingo-oophorectomy History of left hip hemiarthroplasty History of rectal surgery S/P CABG (coronary artery bypass graft) (2006) S/P hysterectomy S/P IVC filter Family History Other Coronary heart disease Heart failure Denies family history of Ovarian cancer Prostate cancer Myocardial infarction Breast cancer Colorectal cancer Social History Smoking Status: Never smoker Second Hand Exposure: No; Hx Alcohol Use: No Hx Substance Use: No Preferred Language: Georgian Communication Ability: Effective Visual Impairment: Partially Limited Hearing Ability: Hard of Hearing Physician Aide Required: No Beliefs That Will Affect Care: None marital status: Current Living Situation: Senior Care Current Living Situation Comment: [facility] current occupational status: retired 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 [employer] How many Children do You have: 2 Feels Safe at Home: Yes Childhood Exposure to Second-Hand Smoke: No during the past year weight has: remained stable Dental Care, Regularly: Yes Physical Activity Frequency: Does not Exercise Seatbelt Use: always Sunscreen Use: Yes Assistive Devices: Glasses and Walker Allergies Allergies Allergy/AdvReac Type Severity Reaction Status Date / Time aspartame Allergy Mild HEADACHES, Verified 10/03/21 21:02 N/V shellfish derived Allergy Mild HEADACHE Verified 10/03/21 21:02 AND N/V Cipro Allergy Unknown ELEVATED Verified 09/20/17 17:44 BLOOD PRESSURE ciprofloxacin Allergy Unknown ELEVATED Verified 10/03/21 21:02 BLOOD PRESSURE Iodinated Contrast Media Allergy Unknown R/T Verified 10/03/21 21:02 SHELLFISH ALLERGY nitrofurantoin Allergy Unknown NAUSEA,ABDOMINAL Verified 10/03/21 21:02 PAIN Quinolones Allergy Unknown CIPRO - Verified 10/03/21 21:02 ELEVATED BLOOD PRESSURE Sulfa (Sulfonamide Allergy Unknown UNKNOWN - Verified 10/03/21 21:02 Antibiotics) PT STATES DOES NOT REMEMBER lorazepam AdvReac Intermediate Paranoia Unverified 10/03/21 21:02 and Confusion Home Meds Home Medications Medication Instructions Recorded Confirmed cyanocobalamin (vitamin B-12) 1,000 mcg PO DAILY #0 09/13/17 10/03/21 1,000 mcg tablet (Vitamin B-12) glucosamine sulfate 500 mg tablet 1,000 mg PO DAILY #0 09/13/17 10/03/21 (Glucosamine) levothyroxine 75 mcg tablet 75 mcg PO DAILYBB #0 09/13/17 10/03/21 (Synthroid) ondansetron 8 mg disintegrating 8 mg PO TID PRN #0 tab 09/13/17 10/03/21 tablet polyethylene glycol 3350 17 gram 17 g PO DAILY PRN #0 09/13/17 10/03/21 oral powder packet (Miralax) prednisone 5 mg tablet 5 mg PO QAM #0 tab 09/13/17 10/03/21 potassium chloride 20 mEq 20 meq PO DAILY #0 tab 05/14/18 10/03/21 tablet,extended release (K-Tab) ferrous sulfate 325 mg (65 mg 325 mg PO BID 03/08/19 10/03/21 iron) tablet (Iron (ferrous sulfate)) metoprolol succinate 25 mg 25 mg PO DAILY 07/27/19 10/03/21 tablet,extended release 24 hr (Toprol XL) ascorbic acid (vitamin C) 250 mg 250 mg PO DAILY 10/10/19 10/03/21 tablet (Vitamin C) nitroglycerin 0.4 mg sublingual 0.4 mg SUBLINGUAL DIRECTED PRN 10/20/19 10/03/21 tablet (Nitrostat) pantoprazole 40 mg tablet,delayed 40 mg PO BID #0 tab 04/18/20 10/03/21 release (Protonix) furosemide 20 mg tablet (Lasix) 20 mg PO MOWEFR 08/11/21 10/03/21 lisinopril 2.5 mg tablet (Zestril) 2.5 mg PO DAILY 08/11/21 10/03/21 melatonin 5 mg tablet 5 - 10 mg PO HS PRN 08/11/21 10/03/21 mirtazapine 15 mg tablet (Remeron) 7.5 mg PO HS tab 08/21/21 10/03/21 acetaminophen 500 mg tablet 500 mg PO QAM 08/29/21 10/03/21 (Acetaminophen Extra Strength) amlodipine 5 mg tablet (Norvasc) 5 mg PO DAILY 08/29/21 10/03/21 apixaban 2.5 mg tablet (Eliquis) 2.5 mg PO BID 08/29/21 10/03/21 calcitriol 0.5 mcg capsule 1.5 mcg PO DAILY 08/29/21 10/03/21 (Rocaltrol) calcium carbonate 600 mg calcium 600 mg PO QDD 08/29/21 10/03/21 (1,500 mg) tablet (Calcium) camphor 11 %-menthol 16 % topical 1 applic TOPICAL UD 08/29/21 10/03/21 cream (Icy Hot Advanced Relief) cranberry fruit concentrate 250 mg 250 mg PO BID 08/29/21 10/03/21 chewable tablet (Azo Cranberry) lidocaine 5 % topical patch 1 patch TOPICAL DAILY 08/29/21 10/03/21 (Lidoderm) sucralfate 1 gram tablet (Carafate) 1 g PO QID PRN 08/29/21 10/03/21 buspirone 5 mg tablet 5 mg PO TID 09/29/21 10/03/21 cholecalciferol (vitamin D3) 25 25 mcg PO DAILY 09/29/21 10/03/21 mcg (1,000 unit) tablet (Vitamin D3) Previous Rx's Medication Instructions Recorded cinacalcet 30 mg tablet (Sensipar) 30 mg PO BID #60 tab 05/19/21 levofloxacin 500 mg tablet 500 mg PO DAILY 5 Days #5 tab 10/03/21 Results & Data (ED) Vital Signs Vital Signs - 24 hr 10/03/21 21:16 10/03/21 21:28 10/03/21 21:30 Temperature 36.7 C Temperature Source Oral Pulse Rate 88 81 89 Pulse Rate from SpO2 Sensor 86 88 Pulse Rhythm Irregular Respiratory Rate 18 25 H 16 Respiratory Effort / Characteristics Non-Labored Respiratory Depth Normal Respiratory Pattern Regular Blood Pressure 157/91 H Blood Pressure Mean 113 Blood Pressure Position Lying Pulse Oximetry 96 98 97 Sepsis Recent Fever Within 48 Hours No Sepsis New/Unexplained Change in Mental Status Yes Sepsis Action Taken by Nursing No Action Required 10/03/21 22:00 10/03/21 22:30 10/03/21 23:00 Temperature Temperature Source Pulse Rate 85 75 81 Pulse Rate from SpO2 Sensor 84 77 83 Pulse Rhythm Respiratory Rate 19 19 17 Respiratory Effort / Characteristics Respiratory Depth Respiratory Pattern Blood Pressure 104/52 L Blood Pressure Mean 69 Blood Pressure Position Pulse Oximetry 98 97 98 Sepsis Recent Fever Within 48 Hours Sepsis New/Unexplained Change in Mental Status Sepsis Action Taken by Nursing 10/04/21 00:15 10/04/21 00:30 10/04/21 01:00 Temperature Temperature Source Pulse Rate 79 78 75 Pulse Rate from SpO2 Sensor 82 75 Pulse Rhythm Respiratory Rate 25 H 18 15 Respiratory Effort / Characteristics Respiratory Depth Respiratory Pattern Blood Pressure Blood Pressure Mean Blood Pressure Position Pulse Oximetry 96 97 Sepsis Recent Fever Within 48 Hours Sepsis New/Unexplained Change in Mental Status Sepsis Action Taken by Nursing Laboratory Data Result diagrams: 10/03/21 22:55 10/03/21 22:55 Lab Results 10/03/21 10/03/21 10/03/21 Range/Units 22:55 22:55 22:55 WBC 7.14 (4.8-10.8) K/uL RBC 3.54 L (4.2-5.4) M/uL Hgb 11.1 L (12.0-16.0) g/dL Hct 33.2 L (37-47) % MCV 93.8 (80-100) fL MCH 31.4 (25-34) pg MCHC 33.4 (32-36) g/dL RDW Std Deviation 46.9 H (36.4-46.3) fL RDW Coeff of Leland 13.6 (11.5-14.5) % Plt Count 291 (130-400) K/uL MPV 10.1 (7.4-10.4) fL Immature Gran % (Auto) 0.8 % Neut % (Auto) 60.2 % Lymph % (Auto) 25.6 % Tift % (Auto) 11.2 % Eos % (Auto) 1.8 % Baso % (Auto) 0.4 % Neut # (Auto) 4.29 (1.4-6.5) K/uL Lymph # (Auto) 1.83 (1.2-3.4) K/uL Tift # (Auto) 0.80 H (0.11-0.59) K/uL Eos # (Auto) 0.13 (0-0.5) K/uL Baso # (Auto) 0.03 (0-0.2) K/uL Immature Gran # (Auto) 0.06 H (0.00-0.02) K/uL PT 10.4 (9.0-12.0) Seconds INR 1.0 (0.9-1.1) APTT 23.1 (21.0-31.0) Seconds PTT Ratio 0.9 Sodium 136 (136-145) mmol/L Potassium 3.3 L (3.5-5.1) mmol/L Chloride 105 (98-107) mmol/L Carbon Dioxide 23 (21-32) mmol/L Anion Gap 8.0 (3-11) BUN 19 H (7-18) mg/dl Creatinine 0.83 D (0.6-1.2) mg/dl Est Cr Clr Drug Dosing 49.3 ml/min Est GFR ( Amer) 73.0 ml/min Est GFR (Non-Af Amer) 63.0 ml/min BUN/Creatinine Ratio 22.6 H (10-20) Glucose 91 (70-99) mg/dl Calcium 10.4 H (8.5-10.1) mg/dl Magnesium 1.8 (1.8-2.4) mg/dl Total Bilirubin 0.4 (0.2-1) mg/dl AST 11 L (15-37) U/L ALT 15 (12-78) U/L Alkaline Phosphatase 43 L (45-117) U/L Troponin I < 0.015 (0-0.045) ng/ml Total Protein 7.1 (6.4-8.2) gm/dl Albumin 3.3 L (3.4-5.0) gm/dl Globulin 3.8 (2.5-4.0) gm/dl Albumin/Globulin Ratio 0.9 (0.9-2) Blood Type Antibody Screen Antibody Identification Direct Antiglob Test (Negative) RAMILA (IgG-AHG) (Negative) RAMILA, Polyspecific (Negative) RAMILA C3b, C3d 5 Min (Negative) 10/03/21 Range/Units 23:03 WBC (4.8-10.8) K/uL RBC (4.2-5.4) M/uL Hgb (12.0-16.0) g/dL Hct (37-47) % MCV (80-100) fL MCH (25-34) pg MCHC (32-36) g/dL RDW Std Deviation (36.4-46.3) fL RDW Coeff of Leland (11.5-14.5) % Plt Count (130-400) K/uL MPV (7.4-10.4) fL Immature Gran % (Auto) % Neut % (Auto) % Lymph % (Auto) % Tift % (Auto) % Eos % (Auto) % Baso % (Auto) % Neut # (Auto) (1.4-6.5) K/uL Lymph # (Auto) (1.2-3.4) K/uL Tift # (Auto) (0.11-0.59) K/uL Eos # (Auto) (0-0.5) K/uL Baso # (Auto) (0-0.2) K/uL Immature Gran # (Auto) (0.00-0.02) K/uL PT (9.0-12.0) Seconds INR (0.9-1.1) APTT (21.0-31.0) Seconds PTT Ratio Sodium (136-145) mmol/L Potassium (3.5-5.1) mmol/L Chloride (98-107) mmol/L Carbon Dioxide (21-32) mmol/L Anion Gap (3-11) BUN (7-18) mg/dl Creatinine (0.6-1.2) mg/dl Est Cr Clr Drug Dosing ml/min Est GFR ( Amer) ml/min Est GFR (Non-Af Amer) ml/min BUN/Creatinine Ratio (10-20) Glucose (70-99) mg/dl Calcium (8.5-10.1) mg/dl Magnesium (1.8-2.4) mg/dl Total Bilirubin (0.2-1) mg/dl AST (15-37) U/L ALT (12-78) U/L Alkaline Phosphatase (45-117) U/L Troponin I (0-0.045) ng/ml Total Protein (6.4-8.2) gm/dl Albumin (3.4-5.0) gm/dl Globulin (2.5-4.0) gm/dl Albumin/Globulin Ratio (0.9-2) Blood Type A Positive Antibody Screen POSITIVE A Antibody Identification Anti-Fya Direct Antiglob Test Negative (Negative) RAMILA (IgG-AHG) Neg (Negative) RAMILA, Polyspecific Neg (Negative) RAMILA C3b, C3d 5 Min Neg (Negative) Imaging Data Radiologist's Impression: Chest X-Ray 10/03/21 22:30 XR chest 1V portable CLINICAL HISTORY: Stroke Like Symptoms TECHNIQUE: Single frontal radiograph of the chest was obtained. Comparison: Comparison is made to chest one view 09/29/2021 FINDINGS: No lines and tubes are seen. Cardiomegaly is noted. Calcified and tortuous aorta noted. There is trace atelectasis at the left lung base. No evidence of pleural effusion or pneumothorax. Chronic degenerative changes and right subluxation of the glenohumeral joint noted. IMPRESSION: No acute chest disease. ACT 112: Negative or not required by law. Electronically signed by: Myles Yousif M.D. 10/03/2021 11:03 PM Discharge Plan Visit Data Chief Complaint: Altered Mental Status Stated Complaint: ALTERED MENTAL STATUS ED Provider: Juancarlos Dodd Discharge Problem: Stroke-like symptoms, Dysarthria, Facial droop
[2021-10-04] MEDS ORDERED: NSS + 20MEQ KCL 20 MEQ/1,000 ML BAG IV SCH (03:45)
--- NOTE | 2021-10-04 03:52 | History & Physical Report ---
Date of Service October 04, 2021 Assessment & Plan (1) Generalized muscle weakness: Plan: Generalized weakness/fatigue- Patient symptoms are more suggestive of deconditioning from her recent admission, as opposed to a TIA The patient may have also had a reaction to the oral Levaquin that she took prior to discharge, and this will be discontinued Observation to monitored bed overnight (2) UTI (urinary tract infection): Plan: Pseudomonas aeruginosa urine tract infection- Only oral medication that it is sensitive to is fluoroquinolones, which she does not tolerate. Cefepime 1 g IV every 8 hours NSS + KCl 20 mEq at 60 mils per hour x1 L (3) Coronary artery disease: Plan: CAD/hypertension/A. fib- Continue amlodipine with hold parameters, Eliquis, Klor-Con, and metoprolol Hold lisinopril and furosemide (4) Persistent atrial fibrillation: Plan: See above (5) Hypertension: Plan: See above (6) Hypothyroidism: Plan: Continue levothyroxine 75 mcg daily (7) Depression with anxiety: Plan: Continue buspirone, mirtazapine and melatonin (8) Hx of deep venous thrombosis: Plan: Continue Eliquis History of Present Illness Chief Complaint: The patient presented to the emergency department, shortly after being discharged to home, with report by nursing of transient headache, memory issues and disorientation Primary Care Provider: [facility], [facility] The patient is an 86-year-old female with a past medical history including hy pothyroidism, depression with anxiety, persistent atrial fibrillation, HFpEF, TIA, status post IVC filter, anxiety, hyperparathyroidism, hypothyroidism, CAD, multiple myeloma, DVT history and history of CABG. The patient's most recent admission to [facility] was from 09/29-10/03, and almost immediately upon return to [facility] was noted to be fatigued and slightly disoriented. She had been recently treated for Pseudomonas urinary tract infection with IV antibiotics, which were changed to oral Levaquin prior to discharge. Her symptoms were not suggestive of TIA, but more suggestive of deconditioning and generalized weakness from a prolonged period of inactivity. CT of head without contrast showed no change. Patient is allergic to IV contrast dye, so no additional imaging was performed. If there is further question about her neurologic status, an MRI can be performed in the a.m. Allergies Allergy/AdvReac Type Severity Reaction Status Date / Time aspartame Allergy Mild HEADACHES, Verified 10/03/21 21:02 N/V shellfish derived Allergy Mild HEADACHE Verified 10/03/21 21:02 AND N/V Cipro Allergy Unknown ELEVATED Verified 09/20/17 17:44 BLOOD PRESSURE ciprofloxacin Allergy Unknown ELEVATED Verified 10/03/21 21:02 BLOOD PRESSURE Iodinated Contrast Media Allergy Unknown R/T Verified 10/03/21 21:02 SHELLFISH ALLERGY nitrofurantoin Allergy Unknown NAUSEA,ABDOMINAL Verified 10/03/21 21:02 PAIN Quinolones Allergy Unknown CIPRO - Verified 10/03/21 21:02 ELEVATED BLOOD PRESSURE Sulfa (Sulfonamide Allergy Unknown UNKNOWN - Verified 10/03/21 21:02 Antibiotics) PT STATES DOES NOT REMEMBER lorazepam AdvReac Intermediate Paranoia Unverified 10/03/21 21:02 and Confusion Home Medications Medication Instructions Recorded Confirmed Type cyanocobalamin (vitamin B-12) 1,000 mcg PO DAILY #0 09/13/17 10/03/21 History 1,000 mcg tablet (Vitamin B-12) glucosamine sulfate 500 mg tablet 1,000 mg PO DAILY #0 09/13/17 10/03/21 History (Glucosamine) levothyroxine 75 mcg tablet 75 mcg PO DAILYBB #0 09/13/17 10/03/21 History (Synthroid) ondansetron 8 mg disintegrating 8 mg PO TID PRN #0 tab 09/13/17 10/03/21 History tablet polyethylene glycol 3350 17 gram 17 g PO DAILY PRN #0 09/13/17 10/03/21 History oral powder packet (Miralax) prednisone 5 mg tablet 5 mg PO QAM #0 tab 09/13/17 10/03/21 History potassium chloride 20 mEq 20 meq PO DAILY #0 tab 05/14/18 10/03/21 History tablet,extended release (K-Tab) ferrous sulfate 325 mg (65 mg 325 mg PO BID 03/08/19 10/03/21 History iron) tablet (Iron (ferrous sulfate)) metoprolol succinate 25 mg 25 mg PO DAILY 07/27/19 10/03/21 History tablet,extended release 24 hr (Toprol XL) ascorbic acid (vitamin C) 250 mg 250 mg PO DAILY 10/10/19 10/03/21 History tablet (Vitamin C) nitroglycerin 0.4 mg sublingual 0.4 mg SUBLINGUAL DIRECTED PRN 10/20/19 10/03/21 History tablet (Nitrostat) pantoprazole 40 mg tablet,delayed 40 mg PO BID #0 tab 04/18/20 10/03/21 History release (Protonix) cinacalcet 30 mg tablet (Sensipar) 30 mg PO BID #60 tab 05/19/21 10/03/21 Rx furosemide 20 mg tablet (Lasix) 20 mg PO MOWEFR 08/11/21 10/03/21 History lisinopril 2.5 mg tablet (Zestril) 2.5 mg PO DAILY 08/11/21 10/03/21 History melatonin 5 mg tablet 5 - 10 mg PO HS PRN 08/11/21 10/03/21 History mirtazapine 15 mg tablet (Remeron) 7.5 mg PO HS tab 08/21/21 10/03/21 History acetaminophen 500 mg tablet 500 mg PO QAM 08/29/21 10/03/21 History (Acetaminophen Extra Strength) amlodipine 5 mg tablet (Norvasc) 5 mg PO DAILY 08/29/21 10/03/21 History apixaban 2.5 mg tablet (Eliquis) 2.5 mg PO BID 08/29/21 10/03/21 History calcitriol 0.5 mcg capsule 1.5 mcg PO DAILY 08/29/21 10/03/21 History (Rocaltrol) calcium carbonate 600 mg calcium 600 mg PO QDD 08/29/21 10/03/21 History (1,500 mg) tablet (Calcium) camphor 11 %-menthol 16 % topical 1 applic TOPICAL UD 08/29/21 10/03/21 History cream (Icy Hot Advanced Relief) cranberry fruit concentrate 250 mg 250 mg PO BID 08/29/21 10/03/21 History chewable tablet (Azo Cranberry) lidocaine 5 % topical patch 1 patch TOPICAL DAILY 08/29/21 10/03/21 History (Lidoderm) sucralfate 1 gram tablet (Carafate) 1 g PO QID PRN 08/29/21 10/03/21 History buspirone 5 mg tablet 5 mg PO TID 09/29/21 10/03/21 History cholecalciferol (vitamin D3) 25 25 mcg PO DAILY 09/29/21 10/03/21 History mcg (1,000 unit) tablet (Vitamin D3) levofloxacin 500 mg tablet 500 mg PO DAILY 5 Days #5 tab 10/03/21 10/03/21 Rx Past Med/Surg History Medical History (Updated 10/04/21 @ 05:25 by Stanford Crawley MD) Acute GI bleeding (2017) Acute hip pain Adenocarcinoma of rectum (2017) "Diarrhea and rectal bleeding Status post colonoscopy and biopsy 02/09/2017 showing high-grade dysplasia suspicious for adenocarcinoma Status post transrectal resection 02/15/2017 Stage pT2 [id number] Plan for combined radiation and chemotherapy, chemotherapy comprised of Xeloda Status post completion of radiation therapy 05/17/2017. She received 5040 cGy. Dosage of Xeloda was adjusted due to side effect of diarrhea" Anxiety Arthritis Atrial fibrillation with RVR Blood dyscrasia Cancer Chronic steroid use Chronic systolic heart failure Constipation Coronary artery disease DVT (deep venous thrombosis) Electrolyte abnormality Facial droop Fatigue Gastric ulcer (2014) Gastrointestinal disorder GI bleed [place] filter in place High cholesterol History of GI bleed History of parathyroid disease Hx of deep venous thrombosis Hypertension Multiple myeloma Osteoporosis Pneumonia (09/2019) Shoulder pain, bilateral Stroke-like symptoms Thrombophlebitis Thyroid disease Urinary tract infection Surgical History History of appendectomy History of bilateral salpingo-oophorectomy History of left hip hemiarthroplasty History of rectal surgery S/P CABG (coronary artery bypass graft) (2006) S/P hysterectomy S/P IVC filter Family History Other Coronary heart disease Heart failure Denies family history of Ovarian cancer Prostate cancer Myocardial infarction Breast cancer Colorectal cancer Social History Smoking Status: Never smoker Second Hand Exposure: No; Hx Alcohol Use: No Hx Substance Use: No Preferred Language: Indonesian Communication Ability: Effective Visual Impairment: Partially Limited Hearing Ability: Hard of Hearing [employer] Director Required: No Beliefs That Will Affect Care: None marital status: Current Living Situation: [facility] Current Living Situation Comment: [facility] current occupational status: retired 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 [employer] How many Children do You have: 2 Feels Safe at Home: Yes Childhood Exposure to Second-Hand Smoke: No during the past year weight has: remained stable Dental Care, Regularly: Yes Physical Activity Frequency: Does not Exercise Seatbelt Use: always Sunscreen Use: Yes Assistive Devices: Glasses and Walker Review of Systems Review of Systems: The patient denies chest pain, palpitations, shortness of breath, dyspnea on exertion, cough, lower extremity swelling, sore throat, fevers, chills, sweats, weight change, fatigue, nausea, vomiting, diarrhea , constipation, abdominal pain, pelvic pain, blood in urine or stool, dysuria, urinary frequency or urgency, loss of consciousness, focal weakness, numbness or tingling in arms or legs, generalized arthralgias or myalgias, back or neck pain, or night sweats. The review of systems is otherwise negative other than for that already noted above, and at least 10 systems have been reviewed. Physical Exam Physical Exam: The patient is sleepy and tired, well developed and well nourished, normocephalic and atraumatic, lying in bed and in no acute distress. HEENT--PERRL, EOMI, mucous membranes and oropharynx normal. Neck--supple. No JVD. No bruits. Thyroid normal, trachea midline, no adenopathy. Heart--normal S1 and S2. No murmurs, rubs or gallops. Lungs--clear bilaterally, no respiratory distress, no accessory muscle use. Abdomen--normal bowel sounds and soft. Nontender. Nondistended, no hernias or masses, no organomegaly. Extremities--no cyanosis or clubbing. No edema. Dermatologic--normal skin turgor, normal color, no abnormal lymph nodes, no rash. Neurologic--cranial nerves II through XII grossly intact. Rheumatologic--limited exam Psychiatric--sleepy and tired. Results & Data Results & Data ([facility]) Vital Signs (Past 12 Hours) Vital Signs Temp Pulse Resp BP Pulse Ox 10/04/21 01:00 75 15 97 10/04/21 00:30 78 18 96 10/04/21 00:15 79 25 H 10/03/21 23:00 81 17 98 10/03/21 22:30 75 19 97 10/03/21 22:00 85 19 104/52 L 98 10/03/21 21:30 89 16 97 10/03/21 21:28 81 25 H 98 10/03/21 21:16 98.1 F 88 18 157/91 H 96 Laboratory Results Laboratory Results WBC 7.14 K/uL (4.8-10.8) 10/03/21 22:55 RBC 3.54 M/uL (4.2-5.4) L 10/03/21 22:55 Hgb 11.1 g/dL (12.0-16.0) L 10/03/21 22:55 Hct 33.2 % (37-47) L 10/03/21 22:55 MCV 93.8 fL (80-100) 10/03/21 22:55 MCH 31.4 pg (25-34) 10/03/21 22:55 MCHC 33.4 g/dL (32-36) 10/03/21 22:55 RDW Std Deviation 46.9 fL (36.4-46.3) H 10/03/21 22:55 RDW Coeff of Leland 13.6 % (11.5-14.5) 10/03/21 22:55 Plt Count 291 K/uL (130-400) 10/03/21 22:55 MPV 10.1 fL (7.4-10.4) 10/03/21 22:55 Immature Gran % (Auto) 0.8 % 10/03/21 22:55 Neut % (Auto) 60.2 % 10/03/21 22:55 Lymph % (Auto) 25.6 % 10/03/21 22:55 [place] % (Auto) 11.2 % 10/03/21 22:55 Eos % (Auto) 1.8 % 10/03/21 22:55 Baso % (Auto) 0.4 % 10/03/21 22:55 Neut # (Auto) 4.29 K/uL (1.4-6.5) 10/03/21 22:55 Lymph # (Auto) 1.83 K/uL (1.2-3.4) 10/03/21 22:55 [place] # (Auto) 0.80 K/uL (0.11-0.59) H 10/03/21 22:55 Eos # (Auto) 0.13 K/uL (0-0.5) 10/03/21 22:55 Baso # (Auto) 0.03 K/uL (0-0.2) 10/03/21 22:55 Immature Gran # (Auto) 0.06 K/uL (0.00-0.02) H 10/03/21 22:55 PT 10.4 Seconds (9.0-12.0) 10/03/21 22:55 INR 1.0 (0.9-1.1) 10/03/21 22:55 APTT 23.1 Seconds (21.0-31.0) 10/03/21 22:55 PTT Ratio 0.9 10/03/21 22:55 Sodium 136 mmol/L (136-145) 10/03/21 22:55 Potassium 3.3 mmol/L (3.5-5.1) L 10/03/21 22:55 Chloride 105 mmol/L (98-107) 10/03/21 22:55 Carbon Dioxide 23 mmol/L (21-32) 10/03/21 22:55 Anion Gap 8.0 (3-11) 10/03/21 22:55 BUN 19 mg/dl (7-18) H 10/03/21 22:55 Creatinine 0.83 mg/dl (0.6-1.2) D 10/03/21 22:55 Est Cr Clr Drug Dosing 49.3 ml/min 10/03/21 22:55 Est GFR ( Amer) 73.0 ml/min 10/03/21 22:55 Est GFR (Non-Af Amer) 63.0 ml/min 10/03/21 22:55 BUN/Creatinine Ratio 22.6 (10-20) H 10/03/21 22:55 Glucose 91 mg/dl (70-99) 10/03/21 22:55 Calcium 10.4 mg/dl (8.5-10.1) H 10/03/21 22:55 Magnesium 1.8 mg/dl (1.8-2.4) 10/03/21 22:55 Total Bilirubin 0.4 mg/dl (0.2-1) 10/03/21 22:55 AST 11 U/L (15-37) L 10/03/21 22:55 ALT 15 U/L (12-78) 10/03/21 22:55 Alkaline Phosphatase 43 U/L (45-117) L 10/03/21 22:55 Troponin I < 0.015 ng/ml (0-0.045) 10/03/21 22:55 Total Protein 7.1 gm/dl (6.4-8.2) 10/03/21 22:55 Albumin 3.3 gm/dl (3.4-5.0) L 10/03/21 22:55 Globulin 3.8 gm/dl (2.5-4.0) 10/03/21 22:55 Albumin/Globulin Ratio 0.9 (0.9-2) 10/03/21 22:55 Blood Type A Positive 10/03/21 23: Antibody Screen POSITIVE A 10/03/21: Antibody Identification Anti-Fya 10/03/21: Direct Antiglob Test Negative (Negative) 10/03/21: RAMILA (IgG-AHG) Neg (Negative) 10/03/21: RAMILA, Polyspecific Neg (Negative) 10/03/21 23: RAMILA C3b, C3d 5 Min Neg (Negative) 10/03/21 23:03 Impressions Chest X-Ray 10/03/21 22:30 XR chest 1V portable CLINICAL HISTORY: Stroke Like Symptoms TECHNIQUE: Single frontal radiograph of the chest was obtained. Comparison: Comparison is made to chest one view 09/29/2021 FINDINGS: No lines and tubes are seen. Cardiomegaly is noted. Calcified and tortuous aorta noted. There is trace atelectasis at the left lung base. No evidence of pleural effusion or pneumothorax. Chronic degenerative changes and right subluxation of the glenohumeral joint noted. IMPRESSION: No acute chest disease. ACT 112: Negative or not required by law. Electronically signed by: Myles Yousif M.D. 10/03/2021 11:03 PM Diagnostic Findings [facility] Patient: CHATO BONILLA (Female) : 31 Status: ER Date: 10/03/21 23:25 Room #: History: ALTERED MENTAL STATUS, VERY CONFUSED RECENTLY DIAGNOSED WITH UTI Slices: 66 Priors: Tech: Carlton Rodriguezn @ [phone] Exams: CT HEAD Contrast: Accession Numbers: [id number] Referring Physician: MAGGIE MAY Preliminary Findings Only See Final Report For Complete Findings CT HEAD: Comparison to MRI brain from July 20, [address] head from July 19, 2021. Mild diffuse cerebral atrophy and periventricular white matter the density consistent with chronic small vessel disease and/or senescent changes. There is no evidence of acute large vessel infarct hemorrhage cranial hemorrhage. Partially calcified extra-axial mass lesion in the right side of the posterior fossa measuring approximately 2.6 cm consistent with a meningioma, unchanged. The paranasal sinuses and mastoid air cells are within normal limits. No skull fracture or scalp hematoma. Radiologist: Graham Sandy MD Study ready at 23:29 and initial results transmitted at 00:02 *This report constitutes a preliminary interpretation only. Non-acute findings felt to be unrelated to the clinical presentation may not be discussed in this report. The study will be interpreted and a final report will be generated by the local Radiologist the following shift. To reach the [facility] radiology department call [phone]. If a discrepancy is found between the preliminary and final interpretations of this study, please notify us via our Client Portal at [email or web address], under QA Exams. You can also fax this report with a description of the discrepancy, or include the final report, to our daytime fax number [phone]. If faxing, please indicate the severity of discrepancy using one of the following categories: [ ] 1 - Agree/Informational [ ] 2 - Unlikely to Affect Management [ ] 3 - Possible Eventual Change of Management [ ] 4 - Probable Immediate Change of Management For all other patient related information, please fax us at [phone]. [id number] Code Status & VTE Plan Code Status Full code VTE Prophylaxis Plan VTE Prophylaxis will be ordered: Yes PG Care Time/CCT Total # of Minutes Spent Total Time Spent with Patient: Total time spent is greater than 50% in coordination of care (as documented) at patient's floor/unit and/or counseling patient: Coding Level of Care Code INT OBSERVATION CARE 70M LVL 3 Diagnoses UTI (urinary tract infection) N30.01 Hematuria presence: with hematuria Urinary tract infection type: acute cystitis Generalized muscle weakness M62.81 Hypothyroidism E03.9 Depression with anxiety F41.8 Persistent atrial fibrillation I48.19 Coronary artery disease I25.10 Hypertension I10 Hx of deep venous thrombosis Z86.718 (1) UTI (urinary tract infection) Hematuria presence: with hematuria Urinary tract infection type: acute cystitis Qualified Code(s): N30.01 - Acute cystitis with hematuria
[2021-10-04] MEDS ORDERED: NITROGLYCERIN SL 0.4 MG/TAB TAB SL PRN (06:03)
[2021-10-04] MEDS ORDERED: CEFEPIME 1,000 MG in SYRINGE 0 ML IV SCH (06:03)
[2021-10-04] MEDS ORDERED: POLYETHYLENE (MIRALAX) 17 GM PACK PO PRN (06:03)
[2021-10-04] MEDS ORDERED: SUCRALFATE 1 GM TAB PO PRN (06:03)
[2021-10-04] MEDS ORDERED: ONDANSETRON INJ 2 MG/ML 2 ML VIAL IV PRN (06:03)
[2021-10-04] MEDS ORDERED: ONDANSETRON 8MG OD TAB PO PRN (06:03)
[2021-10-04] MEDS ORDERED: ACETAMINOPHEN 325 MG TAB PO PRN (06:03)
[2021-10-04] MEDS ORDERED: LEVOTHYROXINE SODIUM 75 MCG TABLET PO SCH (06:30)
[2021-10-04] MEDS ORDERED: MELATONIN 3 MG TAB PO PRN (06:50)
[2021-10-04] MEDS ORDERED: CEFEPIME 2,000 MG in SYRINGE 0 ML IV SCH (08:00)
--- NOTE | 2021-10-04 08:10 | CT Scan Report ---
CT head/brain wo con CLINICAL HISTORY: Stroke Like Symptoms . Ultimate status and confusion COMPARISON STUDY: 07/19/2021 CT DOSE: 614.27 mGy.cm TECHNIQUE: Standard CT of the Brain was performed without IV contrast. A dose lowering technique was utilized adhering to the principles of ALARA. FINDINGS: Extraaxial space: There is no evidence for subdural hematoma. There are no extra-axial fluid collecti ons. Ventricles and cisterns: The ventricles are mildly dilated bilaterally. There is no evidence for mid line shift or mass effect. Parenchyma: There is no subarachnoid or intraparenchymal hemorrhage. There is no evidence for an acu te infarct or cerebral edema. There is mild cerebral cortical atrophy and decreased attenuation in th e periventricular white matter representing remote small vessel disease. There is again evidence for a calcified meningioma involving the posterior fossa on the right which is unchanged. There is no ot her evidence of no gross mass lesions. Osseous structures: There is no evidence for an acute fracture. The visualized paranasal sinuses are clear. The mastoid air cells are clear bilaterally. Soft tissues: There is no evidence for focal soft tissue swelling. IMPRESSION: No acute intracerebral pathology. Cerebral cortical atrophy and remote small vessel disea se are again seen. Calcified meningiomas also again noted within the posterior fossa. ACT 112: Negative or not required by law. Electronically signed by: Julito Jennings M.D. 10/04/2021 8:09 AM
[2021-10-04] MEDS ORDERED: POTASSIUM CHLORIDE CRTAB 20 MEQ TABCR PO SCH (09:00)
[2021-10-04] MEDS ORDERED: amLODIPine BESYLATE 5 MG TAB PO SCH (09:00)
[2021-10-04] MEDS ORDERED: CYANOCOBALAMIN 500 MCG TABLET (VITAMIN B-12) PO SCH (09:00)
[2021-10-04] MEDS ORDERED: NON-FORMULARY MEDICATION (Glucosamine Sulfate [Glucosamine] 500 mg Tablet) PO SCH (09:00)
[2021-10-04] MEDS ORDERED: METOPROLOL SUCC 25MG EXT REL TAB PO SCH (09:00)
[2021-10-04] MEDS ORDERED: NON-FORMULARY MEDICATION (Cranberry Fruit Concentrate [Azo Cranberry] 250 mg Tablet,Chewab PO SCH (09:00)
[2021-10-04] MEDS ORDERED: CINACALCET HCL 30 MG TAB PO SCH (09:00)
[2021-10-04] MEDS ORDERED: predniSONE 5 MG TAB PO SCH (09:00)
[2021-10-04] MEDS ORDERED: CHOLECALCIFEROL 1,000 UNITS 25 MCG TAB PO SCH (09:00)
[2021-10-04] MEDS ORDERED: LIDOCAINE 5% 1 PATCH TD SCH (09:00)
[2021-10-04] MEDS ORDERED: PANTOprazole 40 MG TAB PO SCH (09:00)
[2021-10-04] MEDS ORDERED: CALCITRIOL 0.25 MCG CAPSULE PO SCH (09:00)
[2021-10-04] MEDS ORDERED: APIXABAN 2.5 MG TAB PO SCH (09:00)
[2021-10-04] MEDS ORDERED: FERROUS SULFATE 325 MG TAB PO SCH (09:00)
[2021-10-04] MEDS: busPIRone 5 MG TAB PO SCH ×2 (10:10→13:20)
--- NOTE | 2021-10-04 14:34 | Discharge Summary ---
Date of Service October 04, 2021 Admission HPI Per Admitting Provider The patient is an 86-year-old female with a past medical history including hypothyroidism, depression with anxiety, persistent atrial fibrillation, HFpEF, TIA, status post IVC filter, anxiety, hyperparathyroidism, hypothyroidism, CAD, multiple myeloma, DVT history and history of CABG. The patient's most recent admission to [facility] was from 09/29-10/03, and almost immediately upon return to [facility] was noted to be fatigued and slightly disoriented. She had been recently treated for Pseudomonas urinary tract infection with IV antibiotics, which were changed to oral Levaquin prior to discharge. Her symptoms were not suggestive of TIA, but more suggestive of deconditioning and generalized weakness from a prolonged period of inactivity. CT of head without contrast showed no change. Patient is allergic to IV contrast dye, so no additional imaging was performed. If there is further question about her neurologic status, an MRI can be performed in the a.m. Principal Diagnosis UTI, deconditioning Discharge Data Allergies Allergy/AdvReac Type Severity Reaction Status Date / Time aspartame Allergy Mild HEADACHES, Verified 10/03/21 21:02 N/V shellfish derived Allergy Mild HEADACHE Verified 10/03/21 21:02 AND N/V Cipro Allergy Unknown ELEVATED Verified 09/20/17 17:44 BLOOD PRESSURE ciprofloxacin Allergy Unknown ELEVATED Verified 10/03/21 21:02 BLOOD PRESSURE Iodinated Contrast Media Allergy Unknown R/T Verified 10/03/21 21:02 SHELLFISH ALLERGY nitrofurantoin Allergy Unknown NAUSEA,ABDOMINAL Verified 10/03/21 21:02 PAIN Quinolones Allergy Unknown CIPRO - Verified 10/03/21 21:02 ELEVATED BLOOD PRESSURE Sulfa (Sulfonamide Allergy Unknown UNKNOWN - Verified 10/03/21 21:02 Antibiotics) PT STATES DOES NOT REMEMBER lorazepam AdvReac Intermediate Paranoia Unverified 10/03/21 21:02 and Confusion Consultations 10/04/21 04:03 ED Decision to Admit Stat Ordered Studies 10/03/21 22:30 CT head/brain wo con Urgent Hospital Course (1) Generalized muscle weakness: Generalized weakness/fatigue- Patient symptoms are more suggestive of deconditioning from her recent admission, as opposed to a TIA The patient may have also had a reaction to the oral Levaquin that she took prior to discharge, and this will be discontinued Observation to monitored bed overnight (2) UTI (urinary tract infection): Pseudomonas aeruginosa urine tract infection- Only oral medication that it is sensitive to is fluoroquinolones, which she does not tolerate. Cefepime 1 g IV every 8 hours NSS + KCl 20 mEq at 60 mils per hour x1 L (3) Coronary artery disease: CAD/hypertension/A. fib- Continue amlodipine with hold parameters, Eliquis, Klor-Con, and metoprolol Hold lisinopril and furosemide (4) Persistent atrial fibrillation: See above (5) Hypertension: See above (6) Hypothyroidism: Continue levothyroxine 75 mcg daily (7) Depression with anxiety: Continue buspirone, mirtazapine and melatonin (8) Hx of deep venous thrombosis: Continue Eliquis Total Time Total Time Spent Total Time Spent (In Minutes): 35 min Discharge Plan Discharge Items Patient Disposition: Home - Self-Care Reason For Visit: DRUG REACTION Discharge Diagnosis: deconditioning Condition on Discharge: Fair Activity: Resume your previous activity Non-emergency contact: Primary Care Provider Call non-emergency contact if: you have any medication questions and your symptoms worsen Follow-up/Referrals: [facility] [Primary Care Provider] - Diet: Regular Addtl Attending Provider Instructions: Please make appointment to see an Infectiuous Diseases doctor regarding her recurrent UTI Pending Studies at Discharge: No Stand-Alone Forms: My [employer], Smoking Cessation Medications and DC Order Prescriptions: Continued ferrous sulfate [Iron (ferrous sulfate)] 325 mg (65 mg iron) tablet 325 mg PO BID RF: 0 polyethylene glycol 3350 [Miralax] 17 gram Powder In Packet 17 g PO DAILY PRN (Reason: Constipation) Qty: 0 RF: 0 prednisone 5 mg Tablet 5 mg PO QAM Qty: 0 RF: 0 cyanocobalamin (vitamin B-12) [Vitamin B-12] 1,000 mcg Tablet 1,000 mcg PO DAILY Qty: 0 RF: 0 glucosamine sulfate [Glucosamine] 500 mg Tablet 1,000 mg PO DAILY Qty: 0 RF: 0 ondansetron 8 mg Tablet,Disintegrating 8 mg PO TID PRN (Reason: n/v) Qty: 0 RF: 0 levothyroxine [Synthroid] 75 mcg Tablet 75 mcg PO DAILYBB Qty: 0 RF: 0 potassium chloride [K-Tab] 20 mEq Tablet Extended Release 20 meq PO DAILY Qty: 0 RF: 0 pantoprazole [Protonix] 40 mg tablet,delayed release (DR/EC) 40 mg PO BID Qty: 0 RF: 0 cinacalcet [Sensipar] 30 mg tablet 30 mg PO BID Qty: 60 RF: 2 metoprolol succinate [Toprol XL] 25 mg tablet extended release 24 hr 25 mg PO DAILY RF: 0 ascorbic acid (vitamin C) [Vitamin C] 250 mg tablet 250 mg PO DAILY RF: 0 nitroglycerin [Nitrostat] 0.4 mg Tablet, Sublingual 0.4 mg sublingual DIRECTED PRN (Reason: Chest Pain) RF: 0 buspirone 5 mg tablet 5 mg PO TID RF: 0 cholecalciferol (vitamin D3) [Vitamin D3] 25 mcg (1,000 unit) Tablet 25 mcg PO DAILY RF: 0 melatonin 5 mg Tablet 5 - 10 mg PO HS PRN (Reason: Sleep) RF: 0 furosemide [Lasix] 20 mg tablet 20 mg PO MOWEFR RF: 0 lisinopril [Zestril] 2.5 mg tablet 2.5 mg PO DAILY RF: 0 mirtazapine [Remeron] 15 mg tablet 7.5 mg PO HS RF: 0 lidocaine [Lidoderm] 5 % Adhesive Patch,Medicated 1 patch TOPICAL DAILY RF: 0 Azo Cranberry 250 mg Tablet,Chewable 250 mg PO BID RF: 0 Icy Hot Advanced Relief 11-16 % Cream 1 applic TOPICAL UD RF: 0 sucralfate [Carafate] 1 gram tablet 1 g PO QID PRN (Reason: ULCERS) RF: 0 amlodipine [Norvasc] 5 mg tablet 5 mg PO DAILY RF: 0 acetaminophen [Acetaminophen Extra Strength] 500 mg tablet 500 mg PO QAM RF: 0 calcium carbonate [Calcium 600] 600 mg calcium (1,500 mg) tablet 600 mg PO QDD RF: 0 calcitriol [Rocaltrol] 0.5 mcg capsule 1.5 mcg PO DAILY RF: 0 Eliquis 2.5 mg tablet 2.5 mg PO BID RF: 0 Discontinued levofloxacin 500 mg tablet 500 mg PO DAILY 5 Days Qty: 5 RF: 0 Discharge Orders: Discharge Order (Routine); Ordered 10/04/21 Ordered By: Aiyana Chen Admission Data Admit Date/Time: 10/04/21 04:23 Attending Provider: Aiyana Chen Admit Provider: Stanford Crawley Primary Care Provider: [place],[facility] Other Providers: Stanford Crawley Coding Level of Care Code D/C DAY MANAGEMENT >30 MINS Diagnoses Generalized muscle weakness M62.81 UTI (urinary tract infection) N30.01 Hematuria presence: with hematuria Urinary tract infection type: acute cystitis Coronary artery disease I25.10 Persistent atrial fibrillation I48.19 Hypertension I10 Hypothyroidism E03.9 Depression with anxiety F41.8 Hx of deep venous thrombosis Z86.718
[2021-10-04] MEDS ORDERED: CALCIUM CARBONATE 1250MG TAB PO SCH (16:30)
[2021-10-04] MEDS ORDERED: MIRTAZAPINE TAB 15 MG TAB PO SCH (21:00)
--- NOTE | 2021-10-05 06:46 | Electrocardiogram Report ---
Test Reason : Blood Pressure : / mmHG Vent. Rate : 082 BPM Atrial Rate : 357 BPM P-R Int : 000 ms QRS Dur : 100 ms QT Int : 382 ms P-R-T Axes : 000 002 030 degrees QTc Int : 446 ms Atrial fibrillation Nonspecific ST and T wave abnormality Abnormal ECG When compared with ECG of 29-SEP-2021 11:36, ST now depressed in Anterolateral leads Confirmed by Bang Jones ([id number]) on 10/05/2021 6:45:54 AM Referred By: Obinna Diop [place] Confirmed By:Bang Jones
== END 2021-10-04 15:20 | disposition home or self-care (01) ==
LOC: ED 20:51 → EDINP 20:51 → SUATTDRO 10-04 04:23 → EDINP 10-04 05:00